=== PATIENT | female | born 1985 | race Caucasian/White ===

== ENCOUNTER 2019-10-26 00:14 | Emergency (ER) | payer MEDICAID, SELFPAY ==
[2019-10-26 00:15] VITALS: BP 139/93; PULSE 87; RESP 20; TEMP 36.7; O2SAT 95; BMI 77.2
--- NOTE | 2019-10-26 00:20 | XR_ITS ---
WS: [id number] Bilateral hips. HISTORY: Injury. Quality of examination is limited by body habitus. There is mild narrowing of hip joints. No fracture s or dislocations are apparent. XR/XR hip BI 3-4V wo/w pel [id number] IMPRESSION: Limited quality examination by body habitus. No abnormality seen.
--- NOTE | 2019-10-26 00:25 | W.ED.FALL ---
HPI - Fall General: Chief Complaint: Fall Stated Complaint: leg pain Time Seen by Provider: 10/26/19 00:18 Source: EMS Mode of arrival: EMS Limitations: no limitations History of Present Illness: HPI Narrative: 34-year-old female who states she fell on her wheelchair roughly 2 to 3 hours ago and has had bilateral hip pain since then. Patient has no obvious deformities. States her pain is a 6 out of 10. MD complaint: fall Associated symptoms-after fall: Denies abdominal pain, chest pain or headache(s) Review of Systems Const: Denies: fever(s), chills, body aches or change in appetite Eyes: Denies: blurry vision or eye discomfort ENMT: Denies: throat pain or dental pain Card: Denies: chest pain Resp: Denies: dyspnea GI: Denies: abdominal pain, nausea, vomiting or diarrhea : Denies: dysuria Musc: Reports: joint pain Skin/Breast: Denies: rash Neuro: Denies: headache(s) Psych: Denies: depression Myles/Lymph: Denies: easy bruising All/Imm: Denies: urticaria Physical Exam Const: COMMON NORMALS: no acute distress and patient oriented x3 OTHER: Morbidly obese HENMT: COMMON NORMALS: normocephalic and atraumatic HEAD & SCALP: normocephalic and atraumatic Eye: COMMON NORMALS: Equal, round and reactive pupils present and EOMs intact bilaterally PUPIL: Yes Equal, round and reactive pupils present Neck/C-Spine: COMMON NORMALS: full ROM and supple Chest: COMMONS NORMALS: normal inspection of the chest and normal palpation of entire chest wall Resp: COMMON NORMALS: normal respiratory effort, No retractions, No use of accessory muscles and clear to auscultation bilaterally AUSCULTATION: clear to auscultation bilaterally Cardio: COMMON NORMALS: regular rate, regular rhythm and No murmurs present (Cardio) RATE: regular rate RHYTHM: regular rhythm GI: COMMON NORMALS: Normal to inspection, nondistended, normoactive bowel sounds present, Soft to palpation, non-tender and no masses PALPATION: Yes Soft to palpation Extremity: COMMON NORMALS: normal to inspection and full ROM Neuro: COMMON NORMALS: patient oriented x3, moves all extremities and no focal motor deficits Psych: COMMON NORMALS: mental status grossly normal, Normal thought process present and cooperative THOUGHT PROCESS: Normal thought process present Skin: COMMON NORMALS: no rashes or lesions noted and no wounds GENERAL SKIN EXAM: no rashes or lesions noted Course Vital Signs: Vital signs: Vital Signs Temperature 98.0 F 10/26/19 00:15 Pulse Rate 87 10/26/19 00:15 Respiratory Rate 18 10/26/19 00:30 Blood Pressure 139/93 10/26/19 00:15 Pulse Oximetry 95 10/26/19 00:15 MDM - Fall MDM Narrative: Medical decision making narrative: Patient presents with hip pain likely contusion. Patient has no signs of fractures. Patient is stable for discharge and is to follow-up with primary care doctor in 3 to 4 days. Imaging Data^: xr hip b: Attestation: I personally reviewed and interpreted this imaging study as follows: My impression: no acute abnormality Discharge Plan Discharge Patient Disposition: Home Clinical Impression: Hip pain Fall Qualifiers: Encounter type: initial encounter Qualified Code(s): W19.XXXA - Unspecified fall, initial encounter Condition: Stable Discharge Orders: Discharge Order (Routine); Ordered 10/26/19 Ordered By: Waleska Starr Referrals: Fern Aguilar FNP [Primary Care Provider] - 1-3 days Discharge Diet: Advance as tolerated Discharge Activity: Resume usual activity Patient Instructions: Sciatica (ED) Coding Level of Care Code ED Preparer Making Department for Luis [facility] Fwd Exam Comprehensive
[2019-10-26 00:30] VITALS: RESP 18
[2019-10-26] MEDS: morphine 4 mg/mL SDV 1 mL IM (00:30)
[2019-10-26] MEDS: dexamethasone 10 mg/mL INJ IM (00:31)
--- NOTE | 2019-10-26 00:35 | PC.NURSE ---
Attempted to give IM injections and pt refused the shots. Told
--- NOTE | 2019-10-26 01:15 | XR_ITS ---
WS: [id number] RIGHT KNEE: 3 VIEW(S) TECHNIQUE: AP, oblique(s) and lateral. HISTORY: injury COMPARISON: None available. Study is limited by positioning and rotation. No definite fractures are identified. Mild joint space narrowing throughout the knee. Hypertrophic osteophytes along the tibial plateau. Small to moderate suprapatellar effusion. Extensive soft tissue edema. XR/XR knee RT 3V* [id number] IMPRESSION: 1. No fracture identified. 2. Small to moderate suprapatellar effusion. Consider follow-up CT evaluation if pain continues to exclude occult fracture. Quality of the radiographic serie s is limited by difficult positioning.
--- NOTE | 2019-10-26 01:15 | XR_ITS ---
WS: [id number] LEFT KNEE: 3 VIEW(S) TECHNIQUE: AP, oblique(s) and lateral. HISTORY: injury COMPARISON: None available. Study limited by positioning and habitus. Mild tricompartment osteoarthritis. No fractures are identified. Small osteophytes along the joint line. Small suprapatellar effusion. Diffuse soft tissue edema. XR/XR knee LT 3V* [id number] IMPRESSION: 1. No fracture identified. 2. Mild tricompartment arthritis.
[2019-10-26 01:33] VITALS: BP 112/58; PULSE 68; RESP 18; O2SAT 98
[2019-10-26 01:57] VITALS: BP 114/68; PULSE 78; RESP 16; O2SAT 98
== END 2019-10-26 02:06 | disposition home or self-care (01) ==
PROVIDERS: Emergency Provider Emergency Medicine; PCP Nurse Practitioner Family
DX: M25.559 Pain in unspecified hip (principal); W05.0XXA Fall from non-moving wheelchair, initial encounter
CPT/HCPCS: 12345; 73521; 73522; 73562; 96372; 96375; 99282; 99283; J1100; J2270

== ENCOUNTER 2020-02-06 09:42 | Outpatient (RCR) | payer SELFPAY | END 2020-02-06 23:00 | disposition home or self-care (01) | LOC: SOT 09:42 | PROVIDERS: PCP Nurse Practitioner Family; Referring Provider Nurse Practitioner Family; Visit Provider Nurse Practitioner Family | DX: M25.532 Pain in left wrist (principal); M25.531 Pain in right wrist | CPT/HCPCS: 97110; 97165; L3908 ==

== ENCOUNTER 2020-02-12 06:00 | Outpatient (RCR) | payer MEDICAID, SELFPAY | END 2020-03-03 23:59 | disposition home or self-care (01) | LOC: SPT 06:00 | PROVIDERS: PCP Nurse Practitioner Family; Referring Provider Nurse Practitioner Family; Visit Provider Nurse Practitioner Family | DX: M25.569 Pain in unspecified knee (principal); M25.539 Pain in unspecified wrist | CPT/HCPCS: 97162 ==

== ENCOUNTER 2020-02-16 15:28 | Emergency (ER) | payer MEDICAID, SELFPAY ==
[2020-02-16 15:38] VITALS: BP 155/109; PULSE 98; RESP 20; TEMP 36.9; O2SAT 93; BMI 70.4
--- NOTE | 2020-02-16 16:21 | ED_ITS ---
Documented by User: Waleska Starr MD 02/16/20 17:58 HPI - Abdominal Pain General: Chief Complaint: Abdominal Pain Stated Complaint: ABDOMEN PAIN, N/V/D Time Seen by Provider: 02/16/20 15:33 Source: patient Mode of arrival: ambulatory Limitations: no limitations History of Present Illness: HPI narrative: 34-year-old female states she is having diarrhea today. States that multiple episodes of diarrhea with abdominal cramping. States she also started having rash to is quite pruritic and appears to be allergic. She denies any worsening improving factors. She states her pain is currently a 3 out of 10. She denies any fever. Associated Symptoms: Reports diarrhea and nausea; Denies chills, dysuria and fever(s) Review of Systems Const: Denies: fever(s), chills, body aches or change in appetite Eyes: Denies: blurry vision or eye discomfort ENMT: Denies: throat pain or dental pain Card: Denies: chest pain Resp: Denies: dyspnea GI: Reports: abdominal pain, nausea and diarrhea : Denies: dysuria Musc: Denies: neck pain or back pain Skin/Breast: Reports: rash Neuro: Denies: headache(s) Psych: Denies: depression Myles/Lymph: Denies: easy bruising All/Imm: Denies: urticaria Physical Exam Const: COMMON NORMALS: no acute distress, patient oriented x3 and healthy appearing NUTRITIONAL APPEARANCE: obese HENMT: COMMON NORMALS: normocephalic and atraumatic HEAD & SCALP: normocephalic and atraumatic Eye: COMMON NORMALS: Equal, round and reactive pupils present and EOMs intact bilaterally PUPIL: Yes Equal, round and reactive pupils present Neck/C-Spine: COMMON NORMALS: full ROM and supple Chest: COMMONS NORMALS: normal inspection of the chest and normal palpation of entire chest wall Resp: COMMON NORMALS: normal respiratory effort, No retractions, No use of accessory muscles and clear to auscultation bilaterally AUSCULTATION: clear to auscultation bilaterally Cardio: COMMON NORMALS: regular rate, regular rhythm and No murmurs present (Cardio) RATE: regular rate RHYTHM: regular rhythm GI: COMMON NORMALS: Normal to inspection, nondistended, normoactive bowel sounds present, Soft to palpation, non-tender and no masses PALPATION: Yes Soft to palpation Extremity: COMMON NORMALS: normal to inspection and full ROM Neuro: COMMON NORMALS: patient oriented x3, moves all extremities and no focal motor deficits Psych: COMMON NORMALS: mental status grossly normal, Normal thought process present and cooperative THOUGHT PROCESS: Normal thought process present Skin: COMMON NORMALS: no wounds NARRATIVE SKIN EXAM: Urticarial-like rash to trunk Course Vital Signs: Vital signs: Vital Signs Temperature 98.4 F 02/16/20 15:38 Pulse Rate 78 02/16/20 19:24 Respiratory Rate 18 02/16/20 19:24 Blood Pressure 109/82 02/16/20 19:24 Pulse Oximetry 94 02/16/20 19:24 MDM - Abdominal Pain Lab Data: Labs: Lab Results 02/16/20 02/16/20 Range/Units 16:25 16:25 WBC 16.8 H (4.0-10.0) 10^3/ uL RBC 4.84 (4.1-5.3) 10^6/u L Hgb 14.4 (11.5-15.3) g/dL Hct 45.3 (37.0-47.0) % MCV 93.6 (81-99) fL MCH 29.8 (28.0-34.0) pg MCHC 31.8 (30.0-36.0) g/dL RDW 15.5 H (12.1-15.1) % Plt Count 341 (130-400) 10^3/c mm MPV 11.1 H (7.4-10.4) fL Neut % (Auto) 76.6 % Lymph % (Auto) 17.3 % Baldwin % (Auto) 4.7 % Eos % (Auto) 0.6 % Baso % (Auto) 0.5 % Neut # (Auto) 12.82 H (1.8-7.7) 10^3/u L Lymph # (Auto) 2.9 (0.8-4.8) 10^3/u L Baldwin # (Auto) 0.8 (0.2-0.9) 10^3/u L Eos # (Auto) 0.1 (0.0-0.8) 10^3/u L Baso # (Auto) 0.1 (0.0-0.1) 10^3/u L Nucleated RBC % (a uto) 0 % Nucleated RBCs # 0.0 /100WBC Sodium 138 (136-145) mmol/L Potassium 4.1 (3.5-5.1) mmol/L Chloride 100 (98-107) mmol/L Carbon Dioxide 28 (22-29) mmol/L Anion Gap 14.1 (5-19) BUN 19 (6-20) mg/dL Creatinine 0.9 (0.5-0.9) mg/dL GFR Calculation 71.7 L (90-130) mL/min Glucose 99 (65-115) mg/dL Calculated Osmolal ity 288 (285-295) mOsm/k g Calcium 9.0 (8.5-10.5) mg/dL Total Bilirubin 0.2 (0.15-1.2) mg/dL AST 16 (0-32) U/L ALT 12 (0-33) U/L Alkaline Phosphata se 226 H (35-105) IU/L Total Protein 7.1 (6.6-8.7) g/dL Albumin 3.6 (3.5-5.2) g/dL Globulin 3.5 (1.3-4.6) g/dL Lipase 21 (13-60) U/L Discharge Plan Discharge Patient Disposition: Home Clinical Impression: Acute diarrhea Condition: Stable Prescriptions: New Lomotil 2.5-0.025 mg tablet 1 tab PO Q8H PRN (Reason: diarrhea) Qty: 7 RF: 0 No Action cyclobenzaprine 10 mg Tablet 10 mg PO TID PRN (Reason: MUSCLE SPASMS) RF: 0 bumetanide 2 mg Tablet 2 mg PO DAILY RF: 0 cetirizine 10 mg Tablet 10 mg PO DAILY RF: 0 Oyster Shell Calcium 500 mg Tablet 500 mg PO DAILY RF: 0 oxcarbazepine 300 mg Tablet 300 mg PO BID RF: 0 levothyroxine 100 mcg Tablet 100 mcg PO DAILY RF: 0 famotidine 20 mg Tablet 20 mg PO DAILY RF: 0 gabapentin 300 mg Capsule 300 mg PO TID RF: 0 Tri-Linyah 0.18/0.215/0.25 mg-35 mcg (28) Tablet 1 tab PO DAILY RF: 0 hydroxyzine HCl 25 mg Tablet 25 mg PO QID PRN (Reason: ITCHING/ANXIETY) RF: 0 fluticasone propionate 50 mcg/actuation [place],Suspension 1 spray INTRANASAL DAILY RF: 0 sertraline 50 mg Tablet 150 mg PO DAILY RF: 0 Icy Hot Cream 1 applic TOPICAL BID PRN (Reason: JOINT PAIN) RF: 0 bupropion HCl 300 mg Tablet Extended Release 24 Hr 300 mg PO QAM RF: 0 epinephrine 0.3 mg/0.3 mL Syringe See Rx Instructions .ROUTE .COMPLEX RF: 0 potassium chloride 20 mEq Tablet Extended Release 20 meq PO DAILY RF: 0 Discharge Orders: Discharge Order (Routine); Ordered 02/16/20 Ordered By: Cordell Colmenares Referrals: Fern Aguilar FNP [Primary Care Provider] - 4-7 days Discharge Diet: Advance as tolerated Discharge Activity: Resume usual activity Patient Instructions: Diarrhea - Adult Activity Restrictions/Additional Instructions: Return for fever, worsening diarrhea despite treatment, significant blood in the stool, vomiting liquids or medications, other concerning symptoms. Coding Level of Care Code ED Billing Services Manager for [facility] Fwd Exam Comprehensive Documented by User: Cordell Colmenares DO 02/16/20 20:20 HPI - Abdominal Pain General: Chief Complaint: Abdominal Pain Stated Complaint: ABDOMEN PAIN, N/V/D Time Seen by Provider: 02/16/20 15:33 Course Vital Signs: Vital signs: Vital Signs Temperature 98.4 F 02/16/20 15:38 Pulse Rate 78 02/16/20 19:24 Respiratory Rate 18 02/16/20 19:24 Blood Pressure 109/82 02/16/20 19:24 Pulse Oximetry 94 02/16/20 19:24 MDM - Abdominal Pain MDM Narrative: Medical decision making narrative: 34-year-old female with some belly pain and diarrhea checked out to me by Dr. Starr at shift change. Her white blood cell count was 16.8. Her other laboratory appears benign. She has a negative CT scan. We will treat her diarrhea symptomatically. Lab Data: Labs: Lab Results 02/16/20 02/16/20 Range/Units 16:25 16:25 WBC 16.8 H (4.0-10.0) 10^3/ uL RBC 4.84 (4.1-5.3) 10^6/u L Hgb 14.4 (11.5-15.3) g/dL Hct 45.3 (37.0-47.0) % MCV 93.6 (81-99) fL MCH 29.8 (28.0-34.0) pg MCHC 31.8 (30.0-36.0) g/dL RDW 15.5 H (12.1-15.1) % Plt Count 341 (130-400) 10^3/c mm MPV 11.1 H (7.4-10.4) fL Neut % (Auto) 76.6 % Lymph % (Auto) 17.3 % Baldwin % (Auto) 4.7 % Eos % (Auto) 0.6 % Baso % (Auto) 0.5 % Neut # (Auto) 12.82 H (1.8-7.7) 10^3/u L Lymph # (Auto) 2.9 (0.8-4.8) 10^3/u L Baldwin # (Auto) 0.8 (0.2-0.9) 10^3/u L Eos # (Auto) 0.1 (0.0-0.8) 10^3/u L Baso # (Auto) 0.1 (0.0-0.1) 10^3/u L Nucleated RBC % (a uto) 0 % Nucleated RBCs # 0.0 /100WBC Sodium 138 (136-145) mmol/L Potassium 4.1 (3.5-5.1) mmol/L Chloride 100 (98-107) mmol/L Carbon Dioxide 28 (22-29) mmol/L Anion Gap 14.1 (5-19) BUN 19 (6-20) mg/dL Creatinine 0.9 (0.5-0.9) mg/dL GFR Calculation 71.7 L (90-130) mL/min Glucose 99 (65-115) mg/dL Calculated Osmolal ity 288 (285-295) mOsm/k g Calcium 9.0 (8.5-10.5) mg/dL Total Bilirubin 0.2 (0.15-1.2) mg/dL AST 16 (0-32) U/L ALT 12 (0-33) U/L Alkaline Phosphata se 226 H (35-105) IU/L Total Protein 7.1 (6.6-8.7) g/dL Albumin 3.6 (3.5-5.2) g/dL Globulin 3.5 (1.3-4.6) g/dL Lipase 21 (13-60) U/L Discharge Plan Discharge Patient Disposition: Home Clinical Impression: Acute diarrhea Condition: Stable Prescriptions: New Lomotil 2.5-0.025 mg tablet 1 tab PO Q8H PRN (Reason: diarrhea) Qty: 7 RF: 0 No Action cyclobenzaprine 10 mg Tablet 10 mg PO TID PRN (Reason: MUSCLE SPASMS) RF: 0 bumetanide 2 mg Tablet 2 mg PO DAILY RF: 0 cetirizine 10 mg Tablet 10 mg PO DAILY RF: 0 Oyster Shell Calcium 500 mg Tablet 500 mg PO DAILY RF: 0 oxcarbazepine 300 mg Tablet 300 mg PO BID RF: 0 levothyroxine 100 mcg Tablet 100 mcg PO DAILY RF: 0 famotidine 20 mg Tablet 20 mg PO DAILY RF: 0 gabapentin 300 mg Capsule 300 mg PO TID RF: 0 Tri-Linyah 0.18/0.215/0.25 mg-35 mcg (28) Tablet 1 tab PO DAILY RF: 0 hydroxyzine HCl 25 mg Tablet 25 mg PO QID PRN (Reason: ITCHING/ANXIETY) RF: 0 fluticasone propionate 50 mcg/actuation [place],Suspension 1 spray INTRANASAL DAILY RF: 0 sertraline 50 mg Tablet 150 mg PO DAILY RF: 0 Icy Hot Cream 1 applic TOPICAL BID PRN (Reason: JOINT PAIN) RF: 0 bupropion HCl 300 mg Tablet Extended Release 24 Hr 300 mg PO QAM RF: 0 epinephrine 0.3 mg/0.3 mL Syringe See Rx Instructions .ROUTE .COMPLEX RF: 0 potassium chloride 20 mEq Tablet Extended Release 20 meq PO DAILY RF: 0 Discharge Orders: Discharge Order (Routine); Ordered 02/16/20 Ordered By: Cordell Colmenares Referrals: Fern Aguilar FNP [Primary Care Provider] - 4-7 days Discharge Diet: Advance as tolerated Discharge Activity: Resume usual activity Patient Instructions: Diarrhea - Adult Activity Restrictions/Additional Instructions: Return for fever, worsening diarrhea despite treatment, significant blood in the stool, vomiting liquids or medications, other concerning symptoms. Coding Level of Care Code ED Billing Services Manager for [facility] Fwd Exam Comprehensive
[2020-02-16] MEDS: ondansetron 2 mg/ML SDV 2 mL 4 MG IVP (16:34)
[2020-02-16 16:35] LABS: Basophils # 0.1 10^3/uL (0.0-0.1); Basophils % 0.5 %; Eosinophils # 0.1 10^3/uL (0.0-0.8); Eosinophils % 0.6 %; Hematocrit 45.3 % (37.0-47.0); Hemoglobin 14.4 g/dL (11.5-15.3); Lymphocytes # 2.9 10^3/uL (0.8-4.8); Lymphocytes % 17.3 %; Mean Corpuscular HGB Conc 31.8 g/dL (30.0-36.0); Mean Corpuscular Hemoglobin 29.8 pg (28.0-34.0); Mean Corpuscular Volume 93.6 fL (81-99); Mean Platelet Volume 11.1 fL (7.4-10.4); Monocytes # 0.8 10^3/uL (0.2-0.9); Monocytes % 4.7 %; Neutrophils # 12.82 10^3/uL (1.8-7.7); Neutrophils % 76.6 %; Nucleated Red Blood Cells % 0 %; Platelet Count 341 10^3/cmm (130-400); Red Blood Count 4.84 10^6/uL (4.1-5.3); Red Cell Distribution Width 15.5 % (12.1-15.1); White Blood Count 16.8 10^3/uL (4.0-10.0)
[2020-02-16] MEDS: sodium chloride 0.9% 1,000 ML 999 ML IV (16:35)
[2020-02-16 16:36] VITALS: RESP 18
[2020-02-16] MEDS: morphine 4 mg/mL SDV 1 mL IVP (16:36)
[2020-02-16] MEDS: diphenoxylate/atropine Tablet 2 TAB PO (16:37)
[2020-02-16] MEDS: diphenhydrAMINE 50 mg/mL SDV 1mL IVP (16:38)
[2020-02-16 16:52] LABS: Alanine Aminotransferase 12 U/L (0-33); Albumin Level 3.6 g/dL (3.5-5.2); Alkaline Phosphatase 226 IU/L (35-105); Anion Gap 14.1 (5-19); Aspartate Amino Transferase 16 U/L (0-32); Blood Urea Nitrogen 19 mg/dL (6-20); Carbon Dioxide 28 mmol/L (22-29); Chloride 100 mmol/L (98-107); Globulin 3.5 g/dL (1.3-4.6); Glomerular Filtration Rate 71.7 mL/min (90-130); Glucose 99 mg/dL (65-115); Lipase 21 U/L (13-60); Osmolality Calculated 288 mOsm/kg (285-295); Potassium 4.1 mmol/L (3.5-5.1); Sodium 138 mmol/L (136-145); Total Bilirubin 0.2 mg/dL (0.15-1.2); Total Protein 7.1 g/dL (6.6-8.7)
--- NOTE | 2020-02-16 17:34 | CTR_ITS ---
PROCEDURE INFORMATION: Exam: CT Abdomen And Pelvis With Contrast Exam date and time: 02/16/2020 5:35 PM Age: 34 years old Clinical indication: Abdominal pain; Generalized; Prior surgery; Surgery type: Cholecystectomy; Additional info: Abd pain TECHNIQUE: Imaging protocol: Computed tomography of the abdomen and pelvis with intravenous contrast. Radiation optimization: All CT scans at this facility use at least one of these dose optimization techniques: automated exposure control; mA and/or kV adjustment per patient size (includes targeted exams where dose is matched to clinical indication); or iterative reconstruction. Contrast material: OMNI 300; Contrast volume: 95 ml; Contrast route: INTRAVENOUS (IV); COMPARISON: CR XR hip BI 3-4V wo/w pel [id number] 10/26/2019 12:26 AM RADIATION DOSE METRICS: Total DLP (mGy-cm): 2568.1 FINDINGS: Lungs: There is a 2.3 cm lobular density along the right oblique fissure extending into the right lower lobe. Liver: Normal. No mass. Gallbladder and bile ducts: The gallbladder has been removed. Pancreas: Normal. No ductal dilation. Spleen: Normal. No splenomegaly. Adrenal glands: Normal. No mass. Kidneys and ureters: Normal. No hydronephrosis. Stomach and bowel: Unremarkable. No obstruction. No mucosal thickening. Appendix: No evidence of appendicitis. Intraperitoneal space: Unremarkable. No free air. No significant fluid collection. Vasculature: Unremarkable. No abdominal aortic aneurysm. Lymph nodes: Unremarkable. No enlarged lymph nodes. Urinary bladder: Unremarkable as visualized. Reproductive: Unremarkable as visualized. Bones/joints: Unremarkable. No acute fracture. Soft tissues: Unremarkable. CT/CT abdomen pelvis w con* [id number] IMPRESSION: Nonspecific 2.3 cm lobular density along the right oblique fissure. Differential includes subpleural lymph node.If the patient does not have known cancer, follow up should be based on clinical information because of the low risk of cancer in this age group. (Reference: Deyvi) REFERENCES: Deyvi Belcher et al. Guidelines for Management of Incidental Pulmonary Nodules Detected on CT Images: From the Fleischner Society 2017. Radiology. 2017;284(1):228-243. Radiation Dose CTDIVOL = (mGy): DLP = 2568.1 (mGy-cm)
[2020-02-16] MEDS: iohexol 300 mg/mL 100 mL Btl IV (17:52)
[2020-02-16 18:16] VITALS: BP 108/80; PULSE 80; RESP 18; O2SAT 94
[2020-02-16 18:48] VITALS: BP 121/71; PULSE 83; RESP 18; O2SAT 94
[2020-02-16 19:24] VITALS: BP 109/82; PULSE 78; RESP 18; O2SAT 94
== END 2020-02-16 19:26 | disposition home or self-care (01) ==
PROVIDERS: Emergency Medicine; Emergency Provider Emergency Medicine; PCP Nurse Practitioner Family
DX: R19.7 Diarrhea, unspecified (principal)
CPT/HCPCS: 12345; 74177; 80053; 83690; 85025; 87493; 87506; 96361; 96374; 96375; 96376; 99282; 99283; J1200; J2270; J2405; J7030; Q9967

== ENCOUNTER 2020-05-12 10:34 | Emergency (ER) | payer MEDICAID, SELFPAY ==
[2020-05-12 11:08] VITALS: BP 155/93; PULSE 88; RESP 14; TEMP 36.6; O2SAT 96; BMI 70.7
--- NOTE | 2020-05-12 11:57 | ED_ITS ---
HPI - Nausea/Vomiting/Diarrhea General: Chief complaint: Nausea/Vomiting/Diarrhea Stated complaint: DIARRHEA, BODY ACHES/PAINS Time Seen by Provider: 05/12/20 11:42 Source: patient Mode of arrival: ambulatory Limitations: no limitations History of Present Illness: HPI Narrative: 35-year-old female states she has had diarrhea over the last 2 days. States she has had multiple episodes. She denies any blood in her stool. She has abdominal cramping she rates a 3-4 out of 10. She denies any fever. She denies any worsening improving factors. She denies any recent travel or changes in her diet. Associated symtoms: Denies chest pain, dysuria or headache(s) Review of Systems Const: Denies: fever(s), chills, body aches or change in appetite Eyes: Denies: blurry vision or eye discomfort ENMT: Denies: throat pain or dental pain Card: Denies: chest pain Resp: Denies: dyspnea GI: Reports: abdominal pain and diarrhea : Denies: dysuria Musc: Denies: neck pain or back pain Skin/Breast: Denies: rash Neuro: Denies: headache(s) Psych: Denies: depression Myles/Lymph: Denies: easy bruising All/Imm: Denies: urticaria Physical Exam Const: COMMON NORMALS: no acute distress and patient oriented x3 NUTRITIONAL APPEARANCE: obese HENMT: COMMON NORMALS: normocephalic and atraumatic HEAD & SCALP: normocephalic and atraumatic Eye: COMMON NORMALS: Equal, round and reactive pupils present and EOMs intact bilaterally PUPIL: Yes Equal, round and reactive pupils present Neck/C-Spine: COMMON NORMALS: full ROM and supple Chest: COMMONS NORMALS: normal inspection of the chest and normal palpation of entire chest wall Resp: COMMON NORMALS: normal respiratory effort, No retractions, No use of accessory muscles and clear to auscultation bilaterally AUSCULTATION: clear to auscultation bilaterally Cardio: COMMON NORMALS: regular rate, regular rhythm and No murmurs present (Cardio) RATE: regular rate RHYTHM: regular rhythm GI: COMMON NORMALS: Normal to inspection, nondistended, normoactive bowel sounds present, Soft to palpation, non-tender and no masses PALPATION: Yes Soft to palpation Extremity: COMMON NORMALS: normal to inspection and full ROM Neuro: COMMON NORMALS: patient oriented x3, moves all extremities and no focal motor deficits Psych: COMMON NORMALS: mental status grossly normal, Normal thought process present and cooperative THOUGHT PROCESS: Normal thought process present Skin: COMMON NORMALS: no rashes or lesions noted and no wounds GENERAL SKIN EXAM: no rashes or lesions noted Course Vital Signs: Vital signs: Vital Signs Temperature 97.9 F 05/12/20 11:08 Pulse Rate 71 05/12/20 12:35 Respiratory Rate 14 05/12/20 11:08 Blood Pressure 141/53 05/12/20 12:35 Pulse Oximetry 94 05/12/20 12:55 MDM - Nausea/Vomiting/Diarrhea MDM Narrative: Medical decision making narrative: Patient presents here with diarrhea and vomiting and feels much improved here blood work is normal abdominal exam is benign she has no signs of acute surgical abdomen. Patient's not had any bowel movements here. We will place her on Lomotil and Zofran for home. She is to follow-up with PCP and return if worsening. Lab Data: Labs: Lab Results 05/12/20 05/12/20 05/12/20 Range/Units 11:57 11:57 12:41 WBC 7.8 (4.0-10.0) 10^3/ uL RBC 4.43 (4.1-5.3) 10^6/u L Hgb 13.4 (11.5-15.3) g/dL Hct 43.2 (37.0-47.0) % MCV 97.5 (81-99) fL MCH 30.2 (28.0-34.0) pg MCHC 31.0 (30.0-36.0) g/dL RDW 14.9 (12.1-15.1) % Plt Count 318 (130-400) 10^3/c mm MPV 10.7 H (7.4-10.4) fL Neut % (Auto) 72.3 % Lymph % (Auto) 19.7 % [place] % (Auto) 6.1 % Eos % (Auto) 1.2 % Baso % (Auto) 0.4 % Neut # (Auto) 5.62 (1.8-7.7) 10^3/u L Lymph # (Auto) 1.5 (0.8-4.8) 10^3/u L [place] # (Auto) 0.5 (0.2-0.9) 10^3/u L Eos # (Auto) 0.1 (0.0-0.8) 10^3/u L Baso # (Auto) 0.0 (0.0-0.1) 10^3/u L Nucleated RBC % (a uto) 0 % Nucleated RBCs # 0.0 /100WBC Sodium 138 (136-145) mmol/L Potassium 3.9 (3.5-5.1) mmol/L Chloride 102 (98-107) mmol/L Carbon Dioxide 28 (22-29) mmol/L Anion Gap 11.9 (5-19) BUN 12 (6-20) mg/dL Creatinine 0.8 (0.5-0.9) mg/dL GFR Calculation 81.6 L (90-130) mL/min Glucose 96 (65-115) mg/dL Calculated Osmolal ity 286 (285-295) mOsm/k g Calcium 9.0 (8.5-10.5) mg/dL Total Bilirubin 0.2 (0.15-1.2) mg/dL AST 24 (0-32) U/L ALT 17 (0-33) U/L Alkaline Phosphata se 244 H (35-105) IU/L Total Protein 7.2 (6.6-8.7) g/dL Albumin 3.4 L (3.5-5.2) g/dL Globulin 3.8 (1.3-4.6) g/dL Lipase 11 L (13-60) U/L Urine Color (Yellow) Urine Appearance (CLEAR) Urine pH (5-7) Ur Specific Gravit y (1.005-1.030) Urine Protein (Negative) Urine Glucose (UA) (Normal) Urine Ketones (Negative) Urine Blood (Negative) Urine Nitrate (Negative) Urine Bilirubin (Negative) Urine Urobilinogen (Negative) mg/dL Ur Leukocyte Paula ase (Negative) Urine RBC (0-2) /hpf Urine WBC (0-5) /hpf Ur Squamous Epith Cells (0-5) /hpf Amorphous Sediment Urine Bacteria (NONE) /hpf Urine HCG, Qual Negative (Negative) 05/12/20 Range/Units 12:41 WBC (4.0-10.0) 10^3/ uL RBC (4.1-5.3) 10^6/u L Hgb (11.5-15.3) g/dL Hct (37.0-47.0) % MCV (81-99) fL MCH (28.0-34.0) pg MCHC (30.0-36.0) g/dL RDW (12.1-15.1) % Plt Count (130-400) 10^3/c mm MPV (7.4-10.4) fL Neut % (Auto) % Lymph % (Auto) % [place] % (Auto) % Eos % (Auto) % Baso % (Auto) % Neut # (Auto) (1.8-7.7) 10^3/u L Lymph # (Auto) (0.8-4.8) 10^3/u L [place] # (Auto) (0.2-0.9) 10^3/u L Eos # (Auto) (0.0-0.8) 10^3/u L Baso # (Auto) (0.0-0.1) 10^3/u L Nucleated RBC % (a uto) % Nucleated RBCs # /100WBC Sodium (136-145) mmol/L Potassium (3.5-5.1) mmol/L Chloride (98-107) mmol/L Carbon Dioxide (22-29) mmol/L Anion Gap (5-19) BUN (6-20) mg/dL Creatinine (0.5-0.9) mg/dL GFR Calculation (90-130) mL/min Glucose (65-115) mg/dL Calculated Osmolal ity (285-295) mOsm/k g Calcium (8.5-10.5) mg/dL Total Bilirubin (0.15-1.2) mg/dL AST (0-32) U/L ALT (0-33) U/L Alkaline Phosphata se (35-105) IU/L Total Protein (6.6-8.7) g/dL Albumin (3.5-5.2) g/dL Globulin (1.3-4.6) g/dL Lipase (13-60) U/L Urine Color Yellow (Yellow) Urine Appearance Clear (CLEAR) Urine pH 7 (5-7) Ur Specific Gravit y 1.015 (1.005-1.030) Urine Protein Neg (Negative) Urine Glucose (UA) Norm (Normal) Urine Ketones 1+ H (Negative) Urine Blood 3+ H (Negative) Urine Nitrate Negative (Negative) Urine Bilirubin 1+ H (Negative) Urine Urobilinogen 1 H (Negative) mg/dL Ur Leukocyte Paula ase Negative (Negative) Urine RBC 10-15 H (0-2) /hpf Urine WBC 0-4 H (0-5) /hpf Ur Squamous Epith Cells 0-4 H (0-5) /hpf Amorphous Sediment Not Reportable Urine Bacteria 1+ H (NONE) /hpf Urine HCG, Qual (Negative) Discharge Plan Discharge Patient Disposition: Home Clinical Impression: Vomiting Qualifiers: Vomiting type: unspecified Vomiting Intractability: non-intractable Nausea presence: with nausea Qualified Code(s): R11.2 - Nausea with vomiting, unspecified Diarrhea Qualifiers: Diarrhea type: unspecified type Qualified Code(s): R19.7 - Diarrhea, unspecified Condition: Stable Prescriptions: New ondansetron 4 mg tablet,disintegrating 4 mg PO Q6H PRN (Reason: nausea and vomiting) Qty: 14 RF: 0 Lomotil 2.5-0.025 mg tablet 1 tab PO DAILY PRN (Reason: diarrhea) Qty: 5 RF: 0 No Action cyclobenzaprine 10 mg Tablet 10 mg PO TID PRN (Reason: MUSCLE SPASMS) RF: 0 cetirizine 10 mg Tablet 10 mg PO DAILY@08 RF: 0 oxcarbazepine 300 mg Tablet 300 mg PO BID@08,20 RF: 0 levothyroxine 100 mcg Tablet 100 mcg PO DAILY@08 RF: 0 famotidine 20 mg Tablet 20 mg PO DAILY@08 RF: 0 norgestimate-ethinyl estradiol [Tri-Linyah] 0.18/0.215/0.25 mg-35 mcg (28) Tablet 1 tab PO DAILY@08 RF: 0 hydroxyzine HCl 25 mg Tablet 25 mg PO DAILY PRN (Reason: Anxiety) RF: 0 fluticasone propionate 50 mcg/actuation [place],Suspension 1 spray INTRANASAL DAILY@14 RF: 0 sertraline 50 mg Tablet 150 mg PO DAILY@08 RF: 0 bupropion HCl 300 mg Tablet Extended Release 24 Hr 300 mg PO DAILY@08 RF: 0 epinephrine 0.3 mg/0.3 mL Syringe See Rx Instructions .ROUTE .COMPLEX RF: 0 potassium chloride 20 mEq Tablet Extended Release 20 meq PO DAILY@08 RF: 0 diphenoxylate-atropine [Lomotil] 2.5-0.025 mg tablet 1 tab PO Q8H PRN (Reason: diarrhea) Qty: 7 RF: 0 gabapentin 600 mg Tablet 600 mg PO TID@08,14,20 RF: 0 Icy Hot Extra Strength See Rx Instructions .ROUTE .COMPLEX RF: 0 Lasix 80 mg Tablet 80 mg PO DAILY@08 RF: 0 Oyster Shell Calcium-Vit D3 500 mg(1,250mg) -200 unit Tablet 1 tab PO DAILY@08 RF: 0 Discharge Orders: Discharge ED (Routine); Ordered 05/12/20 Ordered By: Waleska Starr Referrals: Fern Aguilar FNP [Primary Care Provider] - 1-3 days Discharge Diet: Advance as tolerated Discharge Activity: Resume usual activity Patient Instructions: Acute Nausea and Vomiting (ED) Coding Level of Care Code ED Back End Web Developer for Luis Carlos Fwd Exam Comprehensive
[2020-05-12] MEDS: diphenoxylate/atropine Tablet 2 TAB PO (12:14)
[2020-05-12] MEDS: sodium chloride 0.9% 1,000 ML 999 ML IV (12:14)
[2020-05-12] MEDS: ondansetron 2 mg/ML SDV 2 mL 4 MG IVP (12:15)
[2020-05-12 12:27] LABS: Basophils % 0.4 %; Eosinophils # 0.1 10^3/uL (0.0-0.8); Eosinophils % 1.2 %; Hematocrit 43.2 % (37.0-47.0); Hemoglobin 13.4 g/dL (11.5-15.3); Lymphocytes # 1.5 10^3/uL (0.8-4.8); Lymphocytes % 19.7 %; Mean Corpuscular Hemoglobin 30.2 pg (28.0-34.0); Mean Corpuscular Volume 97.5 fL (81-99); Mean Platelet Volume 10.7 fL (7.4-10.4); Monocytes # 0.5 10^3/uL (0.2-0.9); Monocytes % 6.1 %; Neutrophils # 5.62 10^3/uL (1.8-7.7); Neutrophils % 72.3 %; Nucleated Red Blood Cells % 0 %; Platelet Count 318 10^3/cmm (130-400); Red Blood Count 4.43 10^6/uL (4.1-5.3); Red Cell Distribution Width 14.9 % (12.1-15.1); White Blood Count 7.8 10^3/uL (4.0-10.0)
[2020-05-12 12:35] VITALS: BP 141/53; PULSE 71; O2SAT 93
[2020-05-12] MEDS: HYDROmorphone 1 mg/mL INJ 1 mL IVP (12:52)
[2020-05-12 12:55] VITALS: O2SAT 94
[2020-05-12 13:04] LABS: Alanine Aminotransferase 17 U/L (0-33); Albumin Level 3.4 g/dL (3.5-5.2); Alkaline Phosphatase 244 IU/L (35-105); Anion Gap 11.9 (5-19); Aspartate Amino Transferase 24 U/L (0-32); Blood Urea Nitrogen 12 mg/dL (6-20); Carbon Dioxide 28 mmol/L (22-29); Chloride 102 mmol/L (98-107); Globulin 3.8 g/dL (1.3-4.6); Glomerular Filtration Rate 81.6 mL/min (90-130); Glucose 96 mg/dL (65-115); Lipase 11 U/L (13-60); Osmolality Calculated 286 mOsm/kg (285-295); Potassium 3.9 mmol/L (3.5-5.1); Sodium 138 mmol/L (136-145); Total Bilirubin 0.2 mg/dL (0.15-1.2); Total Protein 7.2 g/dL (6.6-8.7)
[2020-05-12 13:22] LABS: Add Urine Microscopic? YES; Bilirubin Urine 1+ (Negative); Blood Urine 3+ (Negative); Glucose Urine UA Norm (Normal); Ketones Urine 1+ (Negative); Leukocyte Esterase Urine Negative (Negative); Nitrate Urine Negative (Negative); Protein Urine Neg (Negative); Specific Gravity, Urine 1.015 (1.005-1.030); Urine Appearance Clear (CLEAR); Urine Color Yellow (Yellow); Urobilinogen Urine 1 mg/dL (Negative); pH Urine 7 (5-7)
[2020-05-12 13:24] LABS: Add Urine Culture? Yes; Bacteria Urine 1+ /hpf; Squamous Epithelial Cell Urine 0-4 /hpf (0-5); WBC Urine 0-4 /hpf (0-5)
[2020-05-12 14:44] VITALS: BP 150/68; PULSE 85; O2SAT 93
== END 2020-05-12 14:56 | disposition home or self-care (01) ==
PROVIDERS: Nurse Practitioner Family; Emergency Provider Emergency Medicine; PCP Nurse Practitioner Family
DX: R19.7 Diarrhea, unspecified (principal); R11.2 Nausea with vomiting, unspecified
CPT/HCPCS: 12345; 36415; 80053; 81001; 81025; 83690; 85025; 87086; 96361; 96374; 96375; 96376; 99283; J1170; J2405; J7030

== ENCOUNTER 2020-06-20 13:24 | Emergency (ER) | payer MEDICAID, SELFPAY ==
[2020-06-20 15:36] VITALS: BP 142/86; PULSE 87; RESP 89; TEMP 36.2; O2SAT 99; BMI 67.0
--- NOTE | 2020-06-20 15:47 | W.ED.GENADLT ---
HPI - General Adult General: Stated complaint: BILATERAL LEG PAIN Time Seen by Provider: 06/20/20 15:12 History of Present Illness: HPI narrative: Chronic bilateral lower extremity leg edema. Patient said new medications not helping her legs hurt in the mornings. Has no other complaints or problems MD complaint: Leg edema Onset (ago): year(s) Location: lower extremity Associated symptoms: Deny dyspnea Review of Systems Const: Denies: fever(s) or chills Card: Reports: other (Leg edema chronic) Resp: Denies: dyspnea GI: Denies: abdominal pain Physical Exam Const: COMMON NORMALS: no acute distress Resp: COMMON NORMALS: normal respiratory effort GI: OTHER: Obese Extremity: OTHER: Patient has 2+ bilateral lower lower extremity edema. Has dry skin no signs of infection erythema or cellulitis noted Psych: COMMON NORMALS: mental status grossly normal SPEECH: Yes rapid Discharge Plan Discharge Patient Disposition: Home Clinical Impression: Leg edema Condition: Stable Prescriptions: New hydrochlorothiazide 25 mg tablet 25 mg PO DAILY Qty: 10 RF: 0 No Action cyclobenzaprine 10 mg Tablet 10 mg PO TID PRN (Reason: MUSCLE SPASMS) RF: 0 cetirizine 10 mg Tablet 10 mg PO DAILY@08 RF: 0 oxcarbazepine 300 mg Tablet 300 mg PO BID@08,20 RF: 0 levothyroxine 100 mcg Tablet 100 mcg PO DAILY@08 RF: 0 famotidine 20 mg Tablet 20 mg PO DAILY@08 RF: 0 norgestimate-ethinyl estradiol [Tri-Linyah] 0.18/0.215/0.25 mg-35 mcg (28) Tablet 1 tab PO DAILY@08 RF: 0 hydroxyzine HCl 25 mg Tablet 25 mg PO DAILY PRN (Reason: Anxiety) RF: 0 fluticasone propionate 50 mcg/actuation [place],Suspension 1 spray INTRANASAL DAILY@14 RF: 0 sertraline 50 mg Tablet 150 mg PO DAILY@08 RF: 0 bupropion HCl 300 mg Tablet Extended Release 24 Hr 300 mg PO DAILY@08 RF: 0 epinephrine 0.3 mg/0.3 mL Syringe See Rx Instructions .ROUTE .COMPLEX RF: 0 potassium chloride 20 mEq Tablet Extended Release 20 meq PO DAILY@08 RF: 0 diphenoxylate-atropine [Lomotil] 2.5-0.025 mg tablet 1 tab PO Q8H PRN (Reason: diarrhea) Qty: 7 RF: 0 gabapentin 600 mg Tablet 600 mg PO TID@08,14,20 RF: 0 Icy Hot Extra Strength See Rx Instructions .ROUTE .COMPLEX RF: 0 Lasix 80 mg Tablet 80 mg PO DAILY@08 RF: 0 Oyster Shell Calcium-Vit D3 500 mg(1,250mg) -200 unit Tablet 1 tab PO DAILY@08 RF: 0 ondansetron 4 mg tablet,disintegrating 4 mg PO Q6H PRN (Reason: nausea and vomiting) Qty: 14 RF: 0 Lomotil 2.5-0.025 mg tablet 1 tab PO DAILY PRN (Reason: diarrhea) Qty: 5 RF: 0 Discharge Orders: Discharge ED (Routine); Ordered 06/20/20 Ordered By: Kike Amos Referrals: Fern Aguilar FNP [Primary Care Provider] - Discharge Diet: As Directed Discharge Activity: Resume usual activity Patient Instructions: Leg Edema (ED) Activity Restrictions/Additional Instructions: Follow-up with medical provider as directed. Take medications as prescribed. Return to the ER or your medical provider if condition worsens. Please read and understand discharge instructions. If any questions ask please. Follow-up with Steph Aguilar next week and see about getting lab work done to see how hydrochlorothiazide is affecting you Coding Level of Care Code ED Calender Let Off Helper for Luis Carlos Lee
== END 2020-06-20 16:00 | disposition home or self-care (01) ==
PROVIDERS: Emergency Provider Nurse Practitioner Family; PCP Nurse Practitioner Family
DX: R60.0 Localized edema (principal)
CPT/HCPCS: 99281

== ENCOUNTER 2020-07-24 13:24 | Observation (INO) | payer MEDICAID, SELFPAY ==
[2020-07-24] VITALS (12 sets, daily range): BP systolic 119–175; BP diastolic 71–84; PULSE 74–95; RESP 18–20; TEMP 36.5–36.8; O2SAT 90–97; BMI 82.7
--- NOTE | 2020-07-24 13:40 | XR_ITS ---
WS: [id number] Right knee, 3 views, 07/24/2020 Clinical Data: severe rt knee pain Comparison: Right knee, 10/26/2019. Findings: There is severe lateral joint space narrowing. There are large osteophytes of the medial and lateral tibial plateau and femoral condyles. There are posterior spurs of the right patella. No fractures or dislocations are seen. The soft tissues are unremarkable. XR/XR knee RT 3V* [id number] Impression: Severe osteoarthritis of all joint compartments of the right knee.
--- NOTE | 2020-07-24 14:16 | W.ED.EXTPRO ---
HPI - Extremity Problem General: Chief complaint: Extremity Problem,Nontraumatic Stated complaint: KNEE PAIN Time Seen by Provider: 07/24/20 13:36 History of Present Illness: HPI Narrative: patient cared for Dr Radha Bhatti Vital Signs: Vital signs: Vital Signs Temperature 97.7 F 07/24/20 13:47 Pulse Rate 74 07/24/20 16:33 Respiratory Rate 18 07/24/20 16:33 Blood Pressure 145/72 07/24/20 16:33 Pulse Oximetry 93 07/24/20 16:33 MDM - Extremity (Nontraumatic) Lab Data: Labs: Lab Results 07/24/20 07/24/20 07/24/20 Range/Units 14:45 14:45 14:45 WBC 13.5 H (4.0-10.0) 10^3/ uL RBC 4.46 (4.1-5.3) 10^6/u L Hgb 13.3 (11.5-15.3) g/dL Hct 43.5 (37.0-47.0) % MCV 97.5 (81-99) fL MCH 29.8 (28.0-34.0) pg MCHC 30.6 (30.0-36.0) g/dL RDW 14.5 (12.1-15.1) % Plt Count 348 (130-400) 10^3/c mm MPV 10.2 (7.4-10.4) fL Neut % (Auto) 80.3 % Lymph % (Auto) 14.2 % [place] % (Auto) 3.7 % Eos % (Auto) 1.1 % Baso % (Auto) 0.4 % Neut # (Auto) 10.83 H (1.8-7.7) 10^3/u L Lymph # (Auto) 1.9 (0.8-4.8) 10^3/u L [place] # (Auto) 0.5 (0.2-0.9) 10^3/u L Eos # (Auto) 0.2 (0.0-0.8) 10^3/u L Baso # (Auto) 0.1 (0.0-0.1) 10^3/u L Nucleated RBC % (a uto) 0 % Nucleated RBCs # 0.0 /100WBC Sodium 135 L (136-145) mmol/L Potassium 4.3 (3.5-5.1) mmol/L Chloride 100 (98-107) mmol/L Carbon Dioxide 26 (22-29) mmol/L Anion Gap 13.3 (5-19) BUN 17 (6-20) mg/dL Creatinine 0.7 (0.5-0.9) mg/dL GFR Calculation 95.2 (90-130) mL/min Glucose 107 (65-115) mg/dL Calculated Osmolal ity 282 L (285-295) mOsm/k g Lactate 0.9 (0.5-2.2) mmol/L Calcium 8.9 (8.5-10.5) mg/dL Total Bilirubin 0.2 (0.15-1.2) mg/dL AST 14 (0-32) U/L ALT 10 (0-33) U/L Alkaline Phosphata se 254 H (35-105) IU/L NT-Pro-B Natriuret Pep 229 H (0-125) pg/mL Total Protein 7.2 (6.6-8.7) g/dL Albumin 3.2 L (3.5-5.2) g/dL Globulin 4.0 (1.3-4.6) g/dL HCG, Qual (Negative) 07/24/20 Range/Units 14:45 WBC (4.0-10.0) 10^3/ uL RBC (4.1-5.3) 10^6/u L Hgb (11.5-15.3) g/dL Hct (37.0-47.0) % MCV (81-99) fL MCH (28.0-34.0) pg MCHC (30.0-36.0) g/dL RDW (12.1-15.1) % Plt Count (130-400) 10^3/c mm MPV (7.4-10.4) fL Neut % (Auto) % Lymph % (Auto) % [place] % (Auto) % Eos % (Auto) % Baso % (Auto) % Neut # (Auto) (1.8-7.7) 10^3/u L Lymph # (Auto) (0.8-4.8) 10^3/u L [place] # (Auto) (0.2-0.9) 10^3/u L Eos # (Auto) (0.0-0.8) 10^3/u L Baso # (Auto) (0.0-0.1) 10^3/u L Nucleated RBC % (a uto) % Nucleated RBCs # /100WBC Sodium (136-145) mmol/L Potassium (3.5-5.1) mmol/L Chloride (98-107) mmol/L Carbon Dioxide (22-29) mmol/L Anion Gap (5-19) BUN (6-20) mg/dL Creatinine (0.5-0.9) mg/dL GFR Calculation (90-130) mL/min Glucose (65-115) mg/dL Calculated Osmolal ity (285-295) mOsm/k g Lactate (0.5-2.2) mmol/L Calcium (8.5-10.5) mg/dL Total Bilirubin (0.15-1.2) mg/dL AST (0-32) U/L ALT (0-33) U/L Alkaline Phosphata se (35-105) IU/L NT-Pro-B Natriuret Pep (0-125) pg/mL Total Protein (6.6-8.7) g/dL Albumin (3.5-5.2) g/dL Globulin (1.3-4.6) g/dL HCG, Qual Negative (Negative) Discharge Plan Discharge Prescriptions: No Action loperamide 2 mg Tablet 2 mg PO Q8H PRN (Reason: Diarrhea) RF: 0 Banophen 25 mg Capsule 25 mg PO Q6H PRN (Reason: Allergy Symptoms) RF: 0 Vitamin D3 25 mcg (1,000 unit) Capsule 25 mcg PO DAILY@08 RF: 0 Throat Discs Lozenge 1 [place] MUCOUS MEMBRANE . DIRECTED PRN (Reason: Cough) RF: 0 cyclobenzaprine 10 mg Tablet 10 mg PO TID PRN (Reason: MUSCLE SPASMS) RF: 0 cetirizine 10 mg Tablet 10 mg PO DAILY@08 RF: 0 oxcarbazepine 300 mg Tablet 300 mg PO BID@08,20 RF: 0 levothyroxine 100 mcg Tablet 100 mcg PO DAILY@08 RF: 0 famotidine 20 mg Tablet 20 mg PO DAILY@08 RF: 0 norgestimate-ethinyl estradiol [Tri-Linyah] 0.18/0.215/0.25 mg-35 mcg (28) Tablet 1 tab PO DAILY@08 RF: 0 hydroxyzine HCl 25 mg Tablet 25 mg PO DAILY PRN (Reason: Anxiety) RF: 0 fluticasone propionate 50 mcg/actuation [place],Suspension 1 spray INTRANASAL DAILY@14 RF: 0 sertraline 50 mg Tablet 150 mg PO DAILY@08 RF: 0 bupropion HCl 300 mg Tablet Extended Release 24 Hr 300 mg PO DAILY@08 RF: 0 epinephrine 0.3 mg/0.3 mL Syringe See Rx Instructions .ROUTE .COMPLEX RF: 0 potassium chloride 20 mEq Tablet Extended Release 20 meq PO DAILY@08 RF: 0 gabapentin 600 mg Tablet 600 mg PO TID@08,14,20 RF: 0 Icy Hot Extra Strength See Rx Instructions .ROUTE .COMPLEX RF: 0 furosemide [Lasix] 80 mg Tablet 80 mg PO DAILY@08 RF: 0 calcium carbonate-vitamin D3 [Oyster Shell Calcium-Vit D3] 500 mg(1,250mg) -200 unit Tablet 1 tab PO DAILY@08 RF: 0 ondansetron 4 mg tablet,disintegrating 4 mg PO Q6H PRN (Reason: nausea and vomiting) Qty: 14 RF: 0 diphenoxylate-atropine [Lomotil] 2.5-0.025 mg tablet 1 tab PO DAILY PRN (Reason: diarrhea) Qty: 5 RF: 0 Coding Level of Care Code ED Diamond Cutter for Luis Carlos Lee
[2020-07-24] MEDS: HYDROmorphone 1 mg/mL INJ 1 mL 0.5 MG IVP (14:56)
[2020-07-24 15:00] LABS: Basophils # 0.1 10^3/uL (0.0-0.1); Basophils % 0.4 %; Eosinophils # 0.2 10^3/uL (0.0-0.8); Eosinophils % 1.1 %; Hematocrit 43.5 % (37.0-47.0); Hemoglobin 13.3 g/dL (11.5-15.3); Lymphocytes # 1.9 10^3/uL (0.8-4.8); Lymphocytes % 14.2 %; Mean Corpuscular HGB Conc 30.6 g/dL (30.0-36.0); Mean Corpuscular Hemoglobin 29.8 pg (28.0-34.0); Mean Corpuscular Volume 97.5 fL (81-99); Mean Platelet Volume 10.2 fL (7.4-10.4); Monocytes # 0.5 10^3/uL (0.2-0.9); Monocytes % 3.7 %; Neutrophils # 10.83 10^3/uL (1.8-7.7); Neutrophils % 80.3 %; Nucleated Red Blood Cells % 0 %; Platelet Count 348 10^3/cmm (130-400); Red Blood Count 4.46 10^6/uL (4.1-5.3); Red Cell Distribution Width 14.5 % (12.1-15.1); White Blood Count 13.5 10^3/uL (4.0-10.0)
[2020-07-24 15:17] LABS: Lactate (Lactic Acid level) 0.9 mmol/L (0.5-2.2)
[2020-07-24 15:21] LABS: HCG, Serum Qual Negative (Negative)
[2020-07-24 15:26] LABS: Alanine Aminotransferase 10 U/L (0-33); Albumin Level 3.2 g/dL (3.5-5.2); Alkaline Phosphatase 254 IU/L (35-105); Aspartate Amino Transferase 14 U/L (0-32); Blood Urea Nitrogen 17 mg/dL (6-20); Calcium 8.9 mg/dL (8.5-10.5); Carbon Dioxide 26 mmol/L (22-29); Chloride 100 mmol/L (98-107); Glomerular Filtration Rate 95.2 mL/min (90-130); Glucose 107 mg/dL (65-115); NT Pro B Type Natriuretic Pept 229 pg/mL (0-125); Osmolality Calculated 282 mOsm/kg (285-295); Sodium 135 mmol/L (136-145); Total Bilirubin 0.2 mg/dL (0.15-1.2); Total Protein 7.2 g/dL (6.6-8.7)
[2020-07-24 15:30] LABS: Anion Gap 13.3 (5-19); Potassium 4.3 mmol/L (3.5-5.1)
--- NOTE | 2020-07-24 16:04 | PC.NURSE ---
pt refused UA
--- NOTE | 2020-07-24 16:10 | USCV_ITS ---
Deann Veag Age: 35 Gender: F : 1985 Exam Date: 07/24/2020 16:39 Ordering Phys: Ned Garcia MD Technologist: Gurwinder Valderrama Exam Location: [facility] [place] Indication: SWELLING HISTORY: Lower extremity swelling. PROCEDURES: Venous duplex imaging was performed in only the left lower extremity. The following venous structures were evaluated: common femoral vein, profunda vein, proximal portion of the greater saphenous vein, superficial femoral vein, and the popliteal vein. In addition, the posterior tibial and peroneal trunk were evaluated. FINDINGS: Normal 2-D Doppler and augmentation and compressibility throughout the lower extremity venous structures. Additional imaging through the proximal calf veins also reveals no thrombus. Limited evaluation of the greater saphenous vein is patent with no thrombus.. CONCLUSIONS No evidence of left lower extremity DVT. Prashanth Camilo MD (Electronically Signed) Final Date: 24 July 2020 17:06 S
[2020-07-24] MEDS: ampicillin-sulbactam 3 GM in sodium chloride 0.9% (plus) 50 ML IV (16:28)
[2020-07-24] MEDS: HYDROmorphone 1 mg/mL INJ 1 mL IVP (16:28)
--- NOTE | 2020-07-24 20:19 | P.HP_ITS ---
Providers/Chief Complaint Admitting Physician: Casa Beard MD Primary Care Provider: RANDY Stevens Chief Complaint: KNEE PAIN History of Present Illness Deann Vega is a 35-year-old female past medical history of hypothyroidism, morbid obesity, severe arthritis of the joints presented to the ER today complaining of extreme pain in her knees on trying to ambulation. She states she has had this complaint in the past as well. She states today when she was trying to get up to go to the grocery store she felt as if her knees locked up and after that she started having knee pain is not able to ambulate or stand after that. She denies any nausea vomiting, headache, dizziness, dysuria, diarrhea, cough, recent sick contacts allergies, itchiness. In the ER showed a white count 30.5, hemoglobin 13.3, sodium 135, creatinine 0.7, negative hCG, UA negative for any signs of infection. Patient was finding it difficult to ambulate or even stand up so ER physician requested patient to be admitted under hospitalist service under observation to social issues can be sought for safe discharge planning. Review of Systems General: Reports: 10 or more systems reviewed and unremarkable except in HPI and below Const: Denies: fever(s), chills, body aches, change in appetite, change in weight, malaise, night sweats, diaphoresis, change in sleep pattern, daytime sleepiness or snoring Eyes: Denies: change in vision, blurry vision, photophobia, eye discomfort or eye discharge ENMT: Denies: throat pain, enlarged tonsils, hoarseness, mouth pain, oral sores, dry mouth, tinnitus, nasal congestion or post nasal drip Card: Denies: chest pain, palpitations, irregular heart rhythm, edema, swelling of feet/ankles, lightheadedness, syncope, pre-syncope, dyspnea on exertion, orthopnea, leg pain with exertion or acrocyanosis Resp: Denies: dyspnea, productive cough, non-productive cough, wheezing, strid or, pain on inspiration, change in phlegm color, hemoptysis or chest congestion GI: Denies: abdominal pain, nausea, vomiting, hematemesis, coffee ground emesis, dysphagia, heartburn, diarrhea, constipation, bloating, GI cramping, change in bowel habits, pain on defecation, hematochezia or melena : Denies: flank pain, dysuria, urinary frequency, urinary urgency, urinary hesitancy, nocturia or hematuria Musc: Denies: neck pain, back pain, extremity pain, joint pain, joint swelling, joint redness, joint stiffness or limited range of motion Neuro: Denies: headache(s), numbness in extremities, weakness in extremities, sensory changes, lack of coordination, difficulty walking, frequent falls, dizziness, vertigo, confusion, Slurred speech present, difficulty communicating thoughts or seizure-like activity Psych: Denies: anxiety, depression, mood swings, panic attacks, hopelessness or irritability Endo: Denies: polyuria, polydipsia, tired all the time, cold intolerance, excessive sweating, flushing or heat intolerance Myles/Lymph: Denies: easy bruising or easy bleeding All/Imm: Denies: tongue swelling, facial swelling or acute wheezing Medications/Allergies Home Medications Medication Instructions Recorded Confirmed Last Taken Type bupropion HCl 300 mg PO DAILY@02/16/20 07/24/20 07/24/20 History cetirizine 10 mg PO DAILY@02/16/20 07/24/20 07/24/20 History cyclobenzaprine 10 mg PO TID PRN 02/16/20 07/24/20 Unknown History epinephrine See Rx Instructions .ROUTE .COMPLEX 02/16/20 07/24/20 Unknown History famotidine 20 mg PO DAILY@02/16/20 07/24/20 07/24/20 History fluticasone propionate 1 spray INTRANASAL DAILY@02/16/20 07/24/20 05/10/20 History hydroxyzine HCl 25 mg PO DAILY PRN 02/16/20 07/24/20 Unknown History levothyroxine 100 mcg PO DAILY@02/16/20 07/24/20 07/24/20 History norgestimate-ethinyl estradiol 1 tab PO DAILY@02/16/20 07/24/20 07/24/20 History [Tri-Linyah] oxcarbazepine 300 mg PO BID@02/16/20 07/24/20 07/24/20 08:00 History potassium chloride 20 meq PO DAILY@02/16/20 07/24/20 07/24/20 History sertraline 150 mg PO DAILY@08 02/16/20 07/24/20 07/24/20 08:00 History Icy Hot Extra Strength See Rx Instructions .ROUTE .COMPLEX 05/12/20 07/24/20 Unknown History calcium carbonate-vitamin D3 1 tab PO DAILY@08 05/12/20 07/24/20 07/24/20 History [Oyster Shell Calcium-Vit D3] diphenoxylate-atropine [Lomotil] 1 tab PO DAILY PRN #5 tab 05/12/20 07/24/20 Unknown Rx furosemide [Lasix] 80 mg PO DAILY@08 05/12/20 07/24/20 07/24/20 History gabapentin 600 mg PO TID@,05/12/20 07/24/20 07/24/20 14:00 History ondansetron 4 mg PO Q6H PRN #14 tab 05/12/20 07/24/20 Unknown Rx capsaicin-peppermint oil-anise 1 shelby MUCOUS MEMBRANE . DIRECTED 07/24/20 07/24/20 Unknown History [Throat Discs] PRN cholecalciferol (vitamin D3) 25 mcg PO DAILY@07/24/20 07/24/20 07/24/20 History [Vitamin D3] diphenhydramine HCl [Banophen] 25 mg PO Q6H PRN 07/24/20 07/24/20 Unknown His tory loperamide 2 mg PO Q8H PRN 07/24/20 07/24/20 Unknown History Allergies Allergy/AdvReac Type Severity Reaction Status Date / Time acetaminophen [From Tylenol] Allergy ALGY-Rash Verified 10/26/19 00:21 aspirin Allergy ALGY-Rash Verified 10/26/19 00:21 azithromycin Allergy ALGY-Rash Verified 10/26/19 00:22 haloperidol [From Haldol] Allergy ADR-Seizure Verified 10/26/19 00:21 ibuprofen Allergy Unknown Verified 10/26/19 00:21 tramadol Allergy ADR-Seizure Verified 10/26/19 00:21 PFSH Acute PFSH: Medical History (Updated 07/25/20 @ 13:38 by Csaa Beard MD) Cellulitis Hypothyroidism Leg pain Morbid obesity Family History (Updated 07/25/20 @ 13:47 by Casa Beard MD) Other CAD (coronary artery disease) Diabetes Social History (Updated 07/25/20 @ 13:47 by Casa Beard MD) Smoking and tobacco status: never smoked Alcohol intake: never Lives independently: Yes Housing: House Vitals/I&O/Wt Last Vital Signs Temp 97.7 F 07/24/20 13:47 Pulse 95 07/24/20 19:56 Resp 18 07/24/20 19:56 BP 153/74 07/24/20 19:56 Pulse Ox 92 07/24/20 19:56 Weight last 48 hrs Weight 218.632 kg Physical Exam Narrative: EXAM NARRATIVE: General: No acute distress, AO x3 morbid obesity HEENT: PERRLA, pupils bilaterally equal and reactive Chest: Normal vesicular breath sounds, no added sounds, equal good air entry bilaterally CVS: S1-S2 regular, no murmurs, no tachycardia, no gallops, no rubs Abdomen: Soft, nontender, no organomegaly, bowel sounds present Neuro: No focal deficits, no facial deformity, AO x3, power 5/5 in all limbs Data : 07/25/20 05:57 07/25/20 05:57 A&P Assessment and plan (1) Morbid obesity: Status: Acute (2) Cellulitis: Status: Acute (3) Leg pain: Status: Acute (4) Depression: Status: Acute (5) Hypothyroidism: Status: Acute Additional A&P Information Start patient on IV ceftriaxone for cellulitis. Pain control with morphine and Tylenol as needed. Leg elevation. Check HbA1c, TSH, iron panel, lipid panel, procalcitonin, MRSA swab, drug screen, flu swab. We will consult with case management for safe discharge planning. Admitted under observation. Attestations Medical Necessity Statement*: Admission for more than 2 midnights under observation because cellulitis, morbid obesity requiring safe discharge planning. Time Spent in Patient Care: Greater than 35 minutes Coding Level of Care Code Acute Student Success Advisor for [facility] Fwd Diagnoses Morbid obesity E66.01 Cellulitis L03.90 Leg pain M79.606 Depression F32.9 Hypothyroidism E03.9
[2020-07-24 21:14] LABS: Urine Appearance SL Hazy (CLEAR); Urine Color Yellow (Yellow)
[2020-07-24 21:15] LABS: Bacteria Urine 1+ /hpf; Bilirubin Urine Neg (Negative); Blood Urine Neg (Negative); Glucose Urine UA Norm (Normal); Ketones Urine Negative (Negative); Leukocyte Esterase Urine Trace (Negative); Nitrate Urine Negative (Negative); Protein Urine Neg (Negative); RBC Urine 0-4 /hpf (0-2); Specific Gravity, Urine 1.015 (1.005-1.030); Urobilinogen Urine Norm (Negative); pH Urine 5 (5-7)
[2020-07-24 21:16] LABS: Add Urine Culture? No
[2020-07-24 21:17] LABS: Amphetamines Screen Urine Negative (Negative); Barbiturates Screen Urine Negative (Negative); Benzodiazepines Screen Urine Negative (Negative); Cocaine Screen Urine Negative (Negative); Opiate Screen Urine Positive (Negative); PCP Screen Urine Negative (Negative); THC Screen Urine Negative (Negative)
[2020-07-24 21:30] LABS: Influenza A by IFA Negative (Negative); Influenza B by IFA Negative (Negative)
[2020-07-24] MEDS: HYDROmorphone 1 mg/mL INJ 1 mL 0.25 MG IVP (22:07)
[2020-07-24] MEDS: cefTRIAXone 1,000 MG in sodium chloride 0.9% (plus) 50 ML 100 MG IV (22:08)
[2020-07-24] MEDS: famotidine 20 mg/2 mL INJ IVP (22:08)
[2020-07-24 22:44] LABS: Procalcitonin 0.06 ng/mL (0-0.5)
[2020-07-24 22:55] LABS: Iron 54 ug/dL (37-145); Percent Saturation 12.1 % (20-50); Total Iron Binding Capacity 444 mcg/dl; Unsaturated Iron Binding 390 ug/dL (112-347)
[2020-07-25] VITALS (9 sets, daily range): BP systolic 112–154; BP diastolic 68–86; PULSE 88–92; RESP 16–19; TEMP 36.6–37; O2SAT 90–97; BMI 82.7
[2020-07-25] MEDS: HYDROmorphone 1 mg/mL INJ 1 mL 0.25 MG IVP ×2 (02:16→09:55)
[2020-07-25 06:02] LABS: Basophils # 0.1 10^3/uL (0.0-0.1); Basophils % 0.5 %; Eosinophils # 0.2 10^3/uL (0.0-0.8); Eosinophils % 1.4 %; Hematocrit 38.9 % (37.0-47.0); Lymphocytes # 2.2 10^3/uL (0.8-4.8); Mean Corpuscular HGB Conc 30.8 g/dL (30.0-36.0); Mean Corpuscular Hemoglobin 29.9 pg (28.0-34.0); Mean Corpuscular Volume 96.8 fL (81-99); Mean Platelet Volume 10.3 fL (7.4-10.4); Monocytes # 0.5 10^3/uL (0.2-0.9); Monocytes % 4.8 %; Neutrophils # 8.03 10^3/uL (1.8-7.7); Neutrophils % 72.8 %; Nucleated Red Blood Cells % 0 %; Platelet Count 354 10^3/cmm (130-400); Red Blood Count 4.02 10^6/uL (4.1-5.3); Red Cell Distribution Width 14.7 % (12.1-15.1)
[2020-07-25 06:33] LABS: Estmated Average Glucose 105; Hemoglobin A1C 5.3 % (4.0-6.0)
[2020-07-25 06:35] LABS: Alanine Aminotransferase 10 U/L (0-33); Albumin Level 3.3 g/dL (3.5-5.2); Alkaline Phosphatase 257 IU/L (35-105); Anion Gap 12.3 (5-19); Aspartate Amino Transferase 10 U/L (0-32); Blood Urea Nitrogen 20 mg/dL (6-20); Calcium 8.8 mg/dL (8.5-10.5); Carbon Dioxide 29 mmol/L (22-29); Chloride 104 mmol/L (98-107); Globulin 3.4 g/dL (1.3-4.6); Glomerular Filtration Rate 71.3 mL/min (90-130); Glucose 128 mg/dL (65-115); Osmolality Calculated 296 mOsm/kg (285-295); Potassium 4.3 mmol/L (3.5-5.1); Sodium 141 mmol/L (136-145); Total Bilirubin 0.2 mg/dL (0.15-1.2); Total Protein 6.7 g/dL (6.6-8.7)
[2020-07-25] MEDS: famotidine 20 mg/2 mL INJ IVP (08:18)
[2020-07-25] MEDS: sertraline 50 mg Tablet 150 MG PO (09:53)
[2020-07-25] MEDS: FUROsemide 40 mg Tablet 80 MG PO (09:53)
[2020-07-25] MEDS: bisacodyl 5 mg Tablet 10 MG PO (09:53)
[2020-07-25] MEDS: cyclobenzaprine 10 mg Tablet PO ×2 (09:54→16:39)
[2020-07-25] MEDS: potassium chloride ER 20 mEq Tablet PO (09:54)
[2020-07-25] MEDS: hyDROXYzine 25 mg Capsule PO (09:54)
[2020-07-25] MEDS: buPROPion XL (24 HR) 300 mg Tablet PO (09:54)
[2020-07-25] MEDS: OXcarbazepine 300 mg Tablet PO (09:54)
[2020-07-25] MEDS: ondansetron 2 mg/ML SDV 2 mL 4 MG IVP (09:55)
[2020-07-25] MEDS: levothyroxine 100 mcg Tablet PO (11:19)
--- NOTE | 2020-07-25 13:33 | P.DS_ITS ---
Discharge Providers Date of Admission: 07/24/20 18:17 Date of Discharge: July 25, 2020 Attending Provider at Admission: Casa Beard MD Attending Provider at Discharge: Casa Beard MD Primary Care Provider: RANDY Stevens Diagnoses at Discharge Discharge Diagnosis (1) Morbid obesity: Status: Acute (2) Cellulitis: Status: Acute (3) Leg pain: Status: Acute (4) Depression: Status: Acute (5) Hypothyroidism: Status: Acute Reason for Visit Reason for Visit: KNEE PAIN Hospital Course Hospital Course 35-year-old female past medical history of hypothyroidism, morbid obesity, severe arthritis of the joints presented to the ER today complaining of extreme pain in her knees on trying to ambulation. She states she has had this complaint in the past as well. She states today when she was trying to get up to go to the grocery store she felt as if her knees locked up and after that she started having knee pain is not able to ambulate or stand after that. She denies any nausea vomiting, headache, dizziness, dysuria, diarrhea, cough, recent sick contacts allergies, itchiness. In the ER showed a white count 30.5, hemoglobin 13.3, sodium 135, creatinine 0.7, negative hCG, UA negative for any signs of infection. As patient was unable to ambulate most likely from severe osteoarthritis cause because of severe morbid obesity she is into the hospital under observation for pain control and social service consult for safe discharge planning. On examination patient was found to have cellulitis of her leg for which she was started on antibiotics. Further work-up including urine toxicology was done which was positive only for opiates, TSH within normal limits with negative procalcitonin, iron panel was within normal limits. After social care consult patient is been discharged in hemodynamically stable condition with advised to follow-up with a primary care provider within next 1 week. Patient was counseled in detail regarding multiple comorbidities due to morbid obesity and modalities to help with morbid obesity including bariatric surgery. Patient states she was enrolled in the past for bariatric surgery at [facility] and would like to try again. Patient has been referred to Dr. Schumacher for further evaluation and management as needed. Patient has been given a referral for bariatric wheelchair. Physical Exam Narrative: EXAM NARRATIVE: General: No acute distress, AO x3 morbid obesity HEENT: PERRLA, pupils bilaterally equal and reactive Chest: Normal vesicular breath sounds, no added sounds, equal good air entry bilaterally CVS: S1-S2 regular, no murmurs, no tachycardia, no gallops, no rubs Abdomen: Soft, nontender, no organomegaly, bowel sounds present Neuro: No focal deficits, no facial deformity, AO x3, power 5/5 in all limbs Discharge Data Data Completed and Pending: Completed Studies During Hospitalization Category Date Time Status XR knee RT 3V* [id number] Stat Exams 07/24/20 13:40 [place] [id number] Urgent Ultrasound 07/24/20 16:10 Completed Pending at discharge Category Date Time Status Blood Culture Sta t Lab 07/24/20 20:09 Results MRSA by PCR [facility] 07/24/20 21:00 Received Labs from last 24 hours 07/25/20 07/25/20 07/25/20 05:57 05:57 05:57 WBC 11.0 H RBC 4.02 L Hgb 12.0 Hct 38.9 MCV 96.8 MCH 29.9 MCHC 30.8 RDW 14.7 Plt Count 354 MPV 10.3 Neut % (Auto) 72.8 Lymph % (Auto) 20.0 [place] % (Auto) 4.8 Eos % (Auto) 1.4 Baso % (Auto) 0.5 Neut # (Auto) 8.03 H Lymph # (Auto) 2.2 [place] # (Auto) 0.5 Eos # (Auto) 0.2 Baso # (Auto) 0.1 Nucleated RBC % (a uto) 0 Nucleated RBCs # 0.0 Sodium 141 Potassium 4.3 Chloride 104 Carbon Dioxide 29 Anion Gap 12.3 BUN 20 Creatinine 0.9 GFR Calculation 71.3 L Glucose 128 H Estimat Average Gl ucose 105 Hemoglobin A1c 5.3 Calculated Osmolal ity 296 H Lactate Calcium 8.8 Iron TIBC % Saturation Unsat Iron Binding Total Bilirubin 0.2 AST 10 ALT 10 Alkaline Phosphata se 257 H NT-Pro-B Natriuret Pep Total Protein 6.7 Albumin 3.3 L Globulin 3.4 Procalcitonin TSH HCG, Qual Urine Color Urine Appearance Urine pH Ur Specific Gravit y Urine Protein Urine Glucose (UA) Urine Ketones Urine Blood Urine Nitrate Urine Bilirubin Urine Urobilinogen Ur Leukocyte [place] Urine RBC Urine WBC Ur Squamous Epith Cells Amorphous Sediment Urine Bacteria Urine Opiates Scre en Ur Barbiturates Sc reen Ur Phencyclidine S crn Ur Amphetamines Sc reen U Benzodiazepines Scrn Urine Cocaine Scre en U Marijuana (THC) Screen Influenza Type A A g Influenza Type B A g 07/24/20 07/24/20 07/24/20 21:00 20:40 20:40 WBC RBC Hgb Hct MCV MCH MCHC RDW Plt Count MPV Neut % (Auto) Lymph % (Auto) [place] % (Auto) Eos % (Auto) Baso % (Auto) Neut # (Auto) Lymph # (Auto) [place] # (Auto) Eos # (Auto) Baso # (Auto) Nucleated RBC % (a uto) Nucleated RBCs # Sodium Potassium Chloride Carbon Dioxide Anion Gap BUN Creatinine GFR Calculation Glucose Estimat Average Gl ucose Hemoglobin A1c Calculated Osmolal ity Lactate Calcium Iron TIBC % Saturation Unsat Iron Binding Total Bilirubin AST ALT Alkaline Phosphata se NT-Pro-B Natriuret Pep Total Protein Albumin Globulin Procalcitonin TSH HCG, Qual Urine Color Yellow Urine Appearance Sl hazy Urine pH 5 Ur Specific Gravit y 1.015 Urine Protein Neg Urine Glucose (UA) Norm Urine Ketones Negative Urine Blood Neg Urine Nitrate Negative Urine Bilirubin Neg Urine Urobilinogen Norm Ur Leukocyte Paula ase Trace H Urine RBC 0-4 H Urine WBC 5-10 H Ur Squamous Epith Cells 10-15 H Amorphous Sediment Not Reportable Urine Bacteria 1+ H Urine Opiates Scre en Positive H Ur Barbiturates Sc reen Negative Ur Phencyclidine S crn Negative Ur Amphetamines Sc reen Negative U Benzodiazepines Scrn Negative Urine Cocaine Scre en Negative U Marijuana (THC) Screen Negative Influenza Type A A g Negative Influenza Type B A g Negative 07/24/20 07/24/20 07/24/20 14:45 14:45 14:45 WBC RBC Hgb Hct MCV MCH MCHC RDW Plt Count MPV Neut % (Auto) Lymph % (Auto) [place] % (Auto) Eos % (Auto) Baso % (Auto) Neut # (Auto) Lymph # (Auto) [place] # (Auto) Eos # (Auto) Baso # (Auto) Nucleated RBC % (a uto) Nucleated RBCs # Sodium Potassium Chloride Carbon Dioxide Anion Gap BUN Creatinine GFR Calculation Glucose Estimat Average Gl ucose Hemoglobin A1c Calculated Osmolal ity Lactate Calcium Iron 54 TIBC 444 % Saturation 12.1 L Unsat Iron Binding 390 H Total Bilirubin AST ALT Alkaline Phosphata se NT-Pro-B Natriuret Pep Total Protein Albumin Globulin Procalcitonin 0.06 TSH 3.30 HCG, Qual Negative Urine Color Urine Appearance Urine pH Ur Specific Gravit y Urine Protein Urine Glucose (UA) Urine Ketones Urine Blood Urine Nitrate Urine Bilirubin Urine Urobilinogen Ur Leukocyte Paula ase Urine RBC Urine WBC Ur Squamous Epith Cells Amorphous Sediment Urine Bacteria Urine Opiates Scre en Ur Barbiturates Sc reen Ur Phencyclidine S crn Ur Amphetamines Sc reen U Benzodiazepines Scrn Urine Cocaine Scre en U Marijuana (THC) Screen Influenza Type A A g Influenza Type B A g 07/24/20 07/24/20 07/24/20 14:45 14:45 14:45 WBC 13.5 H RBC 4.46 Hgb 13.3 Hct 43.5 MCV 97.5 MCH 29.8 MCHC 30.6 RDW 14.5 Plt Count 348 MPV 10.2 Neut % (Auto) 80.3 Lymph % (Auto) 14.2 [place] % (Auto) 3.7 Eos % (Auto) 1.1 Baso % (Auto) 0.4 Neut # (Auto) 10.83 H Lymph # (Auto) 1.9 [place] # (Auto) 0.5 Eos # (Auto) 0.2 Baso # (Auto) 0.1 Nucleated RBC % (a uto) 0 Nucleated RBCs # 0.0 Sodium 135 L Potassium 4.3 Chloride 100 Carbon Dioxide 26 Anion Gap 13.3 BUN 17 Creatinine 0.7 GFR Calculation 95.2 Glucose 107 Estimat Average Gl ucose Hemoglobin A1c Calculated Osmolal ity 282 L Lactate 0.9 Calcium 8.9 Iron TIBC % Saturation Unsat Iron Binding Total Bilirubin 0.2 AST 14 ALT 10 Alkaline Phosphata se 254 H NT-Pro-B Natriuret Pep 229 H Total Protein 7.2 Albumin 3.2 L Globulin 4.0 Procalcitonin TSH HCG, Qual Urine Color Urine Appearance Urine pH Ur Specific Gravit y Urine Protein Urine Glucose (UA) Urine Ketones Urine Blood Urine Nitrate Urine Bilirubin Urine Urobilinogen Ur Leukocyte Paula ase Urine RBC Urine WBC Ur Squamous Epith Cells Amorphous Sediment Urine Bacteria Urine Opiates Scre en Ur Barbiturates Sc reen Ur Phencyclidine S crn Ur Amphetamines Sc reen U Benzodiazepines Scrn Urine Cocaine Scre en U Marijuana (THC) Screen Influenza Type A A g Influenza Type B A g Vitals: Last Vital Signs Temp 98.6 F 07/25/20 12:00 Pulse 91 07/25/20 12:00 Resp 17 07/25/20 12:00 BP 144/69 07/25/20 12:00 Pulse Ox 91 07/25/20 12:00 Discharge Plan Discharge Patient Disposition: Home Health Service Condition: Stable Prescriptions: New levofloxacin 500 mg tablet 500 mg PO DAILY 5 Days Qty: 5 RF: 0 amoxicillin-pot clavulanate [Augmentin] 875-125 mg tablet 1 tab PO BID 5 Days Qty: 10 RF: 0 Continued loperamide 2 mg Tablet 2 mg PO Q8H PRN (Reason: Diarrhea) RF: 0 Banophen 25 mg Capsule 25 mg PO Q6H PRN (Reason: Allergy Symptoms) RF: 0 Vitamin D3 25 mcg (1,000 unit) Capsule 25 mcg PO DAILY@08 RF: 0 Throat Discs Lozenge 1 shelby MUCOUS MEMBRANE . DIRECTED PRN (Reason: Cough) RF: 0 cyclobenzaprine 10 mg Tablet 10 mg PO TID PRN (Reason: MUSCLE SPASMS) RF: 0 cetirizine 10 mg Tablet 10 mg PO DAILY@08 RF: 0 oxcarbazepine 300 mg Tablet 300 mg PO BID@08,20 RF: 0 levothyroxine 100 mcg Tablet 100 mcg PO DAILY@08 RF: 0 famotidine 20 mg Tablet 20 mg PO DAILY@08 RF: 0 norgestimate-ethinyl estradiol [Tri-Linyah] 0.18/0.215/0.25 mg-35 mcg (28) Tablet 1 tab PO DAILY@08 RF: 0 hydroxyzine HCl 25 mg Tablet 25 mg PO DAILY PRN (Reason: Anxiety) RF: 0 fluticasone propionate 50 mcg/actuation Serena,Suspension 1 spray INTRANASAL DAILY@14 RF: 0 sertraline 50 mg Tablet 150 mg PO DAILY@08 RF: 0 bupropion HCl 300 mg Tablet Extended Release 24 Hr 300 mg PO DAILY@08 RF: 0 epinephrine 0.3 mg/0.3 mL Syringe See Rx Instructions .ROUTE .COMPLEX RF: 0 potassium chloride 20 mEq Tablet Extended Release 20 meq PO DAILY@08 RF: 0 gabapentin 600 mg Tablet 600 mg PO TID@08,14,20 RF: 0 Icy Hot Extra Strength See Rx Instructions .ROUTE .COMPLEX RF: 0 furosemide [Lasix] 80 mg Tablet 80 mg PO DAILY@08 RF: 0 calcium carbonate-vitamin D3 [Oyster Shell Calcium-Vit D3] 500 mg(1,250mg) - 200 unit Tablet 1 tab PO DAILY@08 RF: 0 ondansetron 4 mg tablet,disintegrating 4 mg PO Q6H PRN (Reason: nausea and vomiting) Qty: 14 RF: 0 diphenoxylate-atropine [Lomotil] 2.5-0.025 mg tablet 1 tab PO DAILY PRN (Reason: diarrhea) Qty: 5 RF: 0 Discharge Orders: Discharge Order (Routine); Ordered 07/25/20 Ordered By: Casa Beard Other Ambulatory Orders: DME: Wheelchair (Order) Location: None Selected Ordered By: Casa Beard Referrals: Fern Aguilar FNP [Primary Care Provider] - 7-10 days Malachi Schumacher MD [Physician] - 1 month (Bariatric) Discharge Diet: Usual diet Discharge Activity: Resume usual activity Patient Instructions: Opioid Safety Activity Restrictions/Additional Instructions: Please take Augmentin levofloxacin which is at the antibiotics for next 5 days to finish a course of antibiotics or cellulitis. Please follow-up with Dr. Cobian for possible bariatric surgery. Discharge Attestations Time Spent in Discharge Care*: greater than 30 min Specific Discharge Activities: educating patient, discussing with case picker/social workers/dc planners, documenting/other paperwork and evaluating patient/reviewing data Status at Discharge: Cognitive status at discharge: cognitively intact , Behavioral status at discharge: cooperative , Functional status at discharge: wheelchair bound Overall status at discharge: patient is back to baseline Quality Metrics Clinical Quality Measures During this hospital stay, did patient experience: None Coding Level of Care Code Acute Chg FW DC note Diagnoses Morbid obesity E66.01 Cellulitis L03.90 Leg pain M79.606 Depression F32.9 Hypothyroidism E03.9
--- NOTE | 2020-07-25 13:57 | PC.CHAP ---
Pastoral Care Encounter/Spiritual Assessment Type of Contact [xx] Declined wiper blender visit [] Patient/Family/Request visit [] Outpatient visit [] Follow-up visit [] Physician referral [] Code/Alert [] Routine visit [] Staff referral [] Actively dying [] Patient sleeping [] Family support [] [] Out of room [] Palliative care [] [] Receiving care in room [] Pre-surgical visit [] Trauma [] Long length of stay [] ICU visit [] Other: Relational/Emotional Strength [] Patient feels connected with others/family/visitors/staff [] Distress [] Loneliness/isolation [] Abandonment Spirituality of Patient [] Person of Imelda [] Attends Religion of their [place] [] Believes in Prayer [] Reads Bible or Restorationist materials [] There are Spiritual issues to be addressed [place] Interventions [] Prayer [] Active listening [] Non-anxious presence [] Spiritual/emotional support [] Crisis/trauma care [] Spiritual counseling [] Bereavement support [] Provided bereavement packet [] Provided Bible/devotional materials [] Provided toy/stuffed animal, coloring book to patient or family member [] Provided Communion [] Anointing/[place] [] Salvation [] Completed spiritual assessment [] Other: Impact on Illness or Injury [] Angry [] Fearful [] Anxious [] Often cries [] Exhaustion [] Unable to work [] Unable to attend adventist [] Unable to walk/stand [] Unable to read [] Unable to drive [] Unable to eat/drink [] Unable to sleep [] Unable to be with family [] Patient intubated [] Other: Summary Patient declined all contact with wiper blender. Time spent with patient 2 minutes
--- NOTE | 2020-07-25 14:56 | PC.NURSE ---
IV pt is nervous about IV, yells out in pain, refuses to let nurse do anything with it, she did allow medication after conversation, she is being released.
--- NOTE | 2020-07-25 14:57 | PC.NURSE ---
Wheelchair ordered per provider wheel chair will arrive in 2 weeks, order placed, pt informed , guardian informed
[2020-07-25] MEDS: gabapentin 300 mg Capsule 600 MG PO (15:15)
== END 2020-07-25 17:19 | disposition home health service (06) ==
LOC: ER 14:13 → MEDSURG 18:35
PROVIDERS: Admitting Provider Student in an Organized Health Care Education/Training Program; Emergency Provider Family Medicine; PCP Nurse Practitioner Family; Visit Provider Student in an Organized Health Care Education/Training Program
DX: M25.562 Pain in left knee (principal); M79.89 Other specified soft tissue disorders; M25.561 Pain in right knee; E66.01 Morbid (severe) obesity due to excess calories; Z68.45 Body mass index [BMI] 70 or greater, adult; L03.90 Cellulitis, unspecified; F32.9 Major depressive disorder, single episode, unspecified; E03.9 Hypothyroidism, unspecified; M19.90 Unspecified osteoarthritis, unspecified site
CPT/HCPCS: 36415; 73562; 80053; 80306; 81001; 83036; 83540; 83550; 83605; 83880; 84145; 84443; 84703; 85025; 87040; 87641; 87804; 93971; 94664; 96365; 96367; 96375; 96376; 97116; 97161; 99285; G0378; J0295; J0696; J1170; J1650; J2405; J3490

== ENCOUNTER 2020-07-28 21:01 | Emergency (ER) | payer MEDICAID, SELFPAY ==
[2020-07-28 21:09] VITALS: BP 160/83; PULSE 81; RESP 20; TEMP 36.7; O2SAT 94; BMI 80.3
[2020-07-28 21:13] VITALS: BP 160/83; PULSE 79; RESP 18; O2SAT 96
--- NOTE | 2020-07-28 21:21 | XR_ITS ---
WS: [id number] Exam: XR knee LT 3V* [id number] Date/Time of Exam: 07/28/2020 9:42 PM Reason For Exam: pain, fall Comparison 10/26/2019. There is moderate tricompartmental DJD of the knee. No fracture or dislocation is seen. No joint effu norma is noted. XR/XR knee LT 3V* [id number] IMPRESSION: 1. Moderate tricompartmental DJD. No fracture.
--- NOTE | 2020-07-28 21:27 | W.ED.EXTPRO ---
HPI - Extremity Problem General: Chief complaint: Extremity Injury, Lower Stated complaint: FALL Time Seen by Provider: 07/28/20 21:09 History of Present Illness: HPI Narrative: Patient fell tonight while getting out of bathtub and says she has left knee pain now. Says he cannot straighten her knee out because of the pain. Complaint: joint pain Onset (ago): minute(s) Pain Consistency: constant Location: left and knee Severity scale (1-10): 4 Quality: aching Radiation: none Relieving factors: immobilization Exacerbating factors: range of motion Associated symptoms: Reports no associated symptoms; Deny chest pain, fever(s) or rash Review of Systems Const: Denies: fever(s), chills or body aches Eyes: Denies: change in vision or blurry vision ENMT: Denies: throat pain or nasal congestion Card: Denies: chest pain or dyspnea on exertion Resp: Denies: dyspnea, productive cough or non-productive cough GI: Denies: abdominal pain, nausea or vomiting Musc: Reports: joint pain (Left knee); Denies: extremity pain Skin/Breast: Reports: other (Has cellulitis currently being treated to lower extremities); Denies: rash Neuro: Denies: headache(s) Psych: Denies: anxiety or depression Myles/Lymph: Denies: easy bruising PFSH ED PFSH: Medical History (Updated 07/28/20 @ 21:56 by RANDY Ferris) Cellulitis Depression Hypothyroidism Leg pain Morbid obesity Osteoarthritis Family History (Updated 07/25/20 @ 13:47 by Casa Beard MD) Other CAD (coronary artery disease) Diabetes Social History (Updated 07/25/20 @ 13:47 by Casa Beard MD) Smoking and tobacco status: never smoked Alcohol intake: never Lives independently: Yes Housing: House Physical Exam Const: COMMON NORMALS: no acute distress Extremity: LEFT LOWER EXTREMITY: Yes knee joint (Left knee tender palpation no swelling noted decreased range of motion) OTHER: Lower extremities with some mild cellulitis dry skin redness some some weeping. Psych: COMMON NORMALS: Normal thought process present and cooperative ATTITUDE: Yes Belligerent attititude/behavior present THOUGHT PROCESS: Normal thought process present Course Vital Signs: Vital signs: Vital Signs Temperature 98.0 F 04/26/21 21:09 Pulse Rate 79 07/28/20 21:13 Respiratory Rate 18 07/28/20 21:13 Blood Pressure 160/83 07/28/20 21:13 Pulse Oximetry 96 07/28/20 21:13 MDM - Extremity (Nontraumatic) Imaging Data^: Xray Ortho: My impression: No acute fracture or dislocation noted Discharge Plan Discharge Patient Disposition: Home Clinical Impression: Sprain of knee Qualifiers: Encounter type: initial encounter Involved ligament of knee: unspecified ligament Laterality: left Qualified Code(s): S83.92XA - Sprain of unspecified site of left knee, initial encounter Condition: Stable Prescriptions: New Celebrex 100 mg capsule 200 mg PO BID Qty: 20 RF: 0 No Action loperamide 2 mg Tablet 2 mg PO Q8H PRN (Reason: Diarrhea) RF: 0 Banophen 25 mg Capsule 25 mg PO Q6H PRN (Reason: Allergy Symptoms) RF: 0 Vitamin D3 25 mcg (1,000 unit) Capsule 25 mcg PO DAILY@08 RF: 0 capsaicin-peppermint oil-anise Lozenge 1 shelby MUCOUS MEMBRANE . DIRECTED PRN (Reason: Cough) RF: 0 Augmentin 875-125 mg tablet 1 tab PO BID 5 Days Qty: 10 RF: 0 levofloxacin 500 mg tablet 500 mg PO DAILY 5 Days Qty: 5 RF: 0 cyclobenzaprine 10 mg Tablet 10 mg PO TID PRN (Reason: MUSCLE SPASMS) RF: 0 cetirizine 10 mg Tablet 10 mg PO DAILY@08 RF: 0 oxcarbazepine 300 mg Tablet 300 mg PO BID@08,20 RF: 0 levothyroxine 100 mcg Tablet 100 mcg PO DAILY@08 RF: 0 famotidine 20 mg Tablet 20 mg PO DAILY@08 RF: 0 norgestimate-ethinyl estradiol [Tri-Linyah] 0.18/0.215/0.25 mg-35 mcg (28) Tablet 1 tab PO DAILY@08 RF: 0 hydroxyzine HCl 25 mg Tablet 25 mg PO DAILY PRN (Reason: Anxiety) RF: 0 fluticasone propionate 50 mcg/actuation [place],Suspension 1 spray INTRANASAL DAILY@14 RF: 0 sertraline 50 mg Tablet 150 mg PO DAILY@08 RF: 0 bupropion HCl 300 mg Tablet Extended Release 24 Hr 300 mg PO DAILY@08 RF: 0 epinephrine 0.3 mg/0.3 mL Syringe See Rx Instructions .ROUTE .COMPLEX RF: 0 potassium chloride 20 mEq Tablet Extended Release 20 meq PO DAILY@08 RF: 0 gabapentin 600 mg Tablet 600 mg PO TID@08,14,20 RF: 0 Icy Hot Extra Strength See Rx Instructions .ROUTE .COMPLEX RF: 0 furosemide [Lasix] 80 mg Tablet 80 mg PO DAILY@08 RF: 0 calcium carbonate-vitamin D3 [Oyster Shell Calcium-Vit D3] 500 mg(1,250mg) -200 unit Tablet 1 tab PO DAILY@08 RF: 0 ondansetron 4 mg tablet,disintegrating 4 mg PO Q6H PRN (Reason: nausea and vomiting) Qty: 14 RF: 0 diphenoxylate-atropine [Lomotil] 2.5-0.025 mg tablet 1 tab PO DAILY PRN (Reason: diarrhea) Qty: 5 RF: 0 Discharge Orders: Discharge ED (Routine); Ordered 07/28/20 Ordered By: Kike Amos Referrals: Fern Aguilar FNP [Primary Care Provider] - Discharge Diet: Usual diet Discharge Activity: Increase activity as tolerated Patient Instructions: Knee Sprain (ED) Activity Restrictions/Additional Instructions: Follow-up with medical provider as directed. Take medications as prescribed. Return to the ER or your medical provider if condition worsens. Please read and understand discharge instructions. If any questions ask please. Apply ice to area as needed. Coding Level of Care Code ED Hematology Specialist for Luis Carlos Fwaysha Exam Expanded Problem Focused
[2020-07-28] MEDS: CELEcoxib 200 mg Capsule 400 MG PO (21:47)
== END 2020-07-28 22:04 | disposition home or self-care (01) ==
PROVIDERS: Emergency Provider Nurse Practitioner Family; PCP Nurse Practitioner Family
DX: S83.92XA Sprain of unspecified site of left knee, initial encounter (principal); W18.2XXA Fall in (into) shower or empty bathtub, initial encounter
CPT/HCPCS: 73562; 99283

== ENCOUNTER 2020-09-19 17:43 | Inpatient (IN) | payer MEDICAID, SELFPAY ==
[2020-09-19 18:20] VITALS: BP 160/81; PULSE 118; RESP 28; TEMP 36.7; O2SAT 80; BMI 85.8
--- NOTE | 2020-09-19 18:50 | XRR_ITS ---
PROCEDURE INFORMATION: Exam: XR Chest Exam date and time: 09/19/2020 6:50 PM Age: 35 years old Clinical indication: Cough; Additional info: SOB TECHNIQUE: Imaging protocol: XR of the chest. Views: 1 view. COMPARISON: CT abdomen pelvis w con* [id number] 02/16/2020 5:48 PM FINDINGS: Lungs: Decreased lung volumes. No focal airspace consolidation. There is mild prominence of central pulmonary vasculature. Pleural spaces: Unremarkable. No pleural effusion. No pneumothorax. Heart/Mediastinum: Mild cardiac enlargement. Bones/joints: Unremarkable. XR/XR chest 1V portable [id number] IMPRESSION: Mild central pulmonary vascular congestion changes.
[2020-09-19 19:59] LABS: ABG PCO2 52.5 mmHg (35-45); ABG PH Result 7.42 (7.35-7.45); Arterial Blood Gas Hematocrit 41.7 % (37-47); Base Excess ABG 7.4 mmol/L (-2.0-2.0); Blood Gas Allen Test Pos; Blood Gas Operator Identificat HARKR; Blood Gas Sample Site Radial, right; Blood Gas Sample Type Arterial; HCO3 ABG 33.6 mmol/L (22-26); Oxygen Device NC; PO2 ABG 85.8 mmHg (80.0-100.0)
[2020-09-19 21:46] LABS: Lactic Sepsis W/Reflex 0.6 mmol/L (0.5-2.2)
[2020-09-19 21:51] LABS: NT Pro B Type Natriuretic Pept 1118 pg/mL (0-125); Procalcitonin 0.06 ng/mL (0-0.5)
[2020-09-19 21:53] LABS: SARS Covid-2 Antigen Negative (Negative)
[2020-09-19 22:02] LABS: Basophils # 0.1 10^3/uL (0.0-0.1); Basophils % 0.5 %; Eosinophils # 0.2 10^3/uL (0.0-0.8); Eosinophils % 1.3 %; Hematocrit 43.1 % (37.0-47.0); Lymphocytes # 2.9 10^3/uL (0.8-4.8); Lymphocytes % 17.9 %; Mean Corpuscular HGB Conc 30.2 g/dL (30.0-36.0); Mean Platelet Volume 10.6 fL (7.4-10.4); Monocytes # 0.9 10^3/uL (0.2-0.9); Monocytes % 5.8 %; Neutrophils # 11.78 10^3/uL (1.8-7.7); Neutrophils % 74.1 %; Nucleated Red Blood Cells % 0.2 %; Platelet Count 315 10^3/cmm (130-400); Red Blood Count 4.49 10^6/uL (4.1-5.3); Red Cell Distribution Width 15.3 % (12.1-15.1); White Blood Count 15.9 10^3/uL (4.0-10.0)
[2020-09-19 22:03] LABS: Alanine Aminotransferase 16 U/L (0-33); Albumin Level 3.1 g/dL (3.5-5.2); Alkaline Phosphatase 262 IU/L (35-105); Blood Urea Nitrogen 11 mg/dL (6-20); C Reactive Protein 141.6 mg/L (0.0-4.9); Calcium 8.7 mg/dL (8.5-10.5); Carbon Dioxide 28 mmol/L (22-29); Chloride 96 mmol/L (98-107); Ferritin 28 ng/mL (15-150); Globulin 4.1 g/dL (1.3-4.6); Glomerular Filtration Rate 81.6 mL/min (90-130); Glucose 92 mg/dL (65-115); Osmolality Calculated 283 mOsm/kg (285-295); Sodium 137 mmol/L (136-145); Total Bilirubin 0.3 mg/dL (0.15-1.2); Total Protein 7.2 g/dL (6.6-8.7)
[2020-09-19 22:04] LABS: Anion Gap 17.6 (5-19); Aspartate Amino Transferase 23 U/L (0-32); Potassium 4.6 mmol/L (3.5-5.1)
--- NOTE | 2020-09-19 22:10 | P.HP_ITS ---
Providers/Chief Complaint Primary Care Provider: RANDY Stevens Chief Complaint: SOB, FATIGUE, COUGH, LOSS SMELL/TASTE History of Present Illness Deann Vega is a 35 year old female who is a resident of isolated assisted living, presented today with chief complaint of worsening shortness of breath. Her caregiver is at the bedside who is endorsing that for last 1 to 2 weeks she has been experiencing diarrhea, no febrile episodes were noticed, no active bleeding noticed in her stool, no recent use of antibiotics. Patient is end orsing history of irritable bowel syndrome and stating that her appetite has decreased significantly, she has not eaten well in last few days, she feels she is getting dehydrated and lethargic, her caregiver is stating that mostly she is incontinent but her diaper has been dry lately. Today she was brought to the hospital because she was very lethargic and was saturating 60 to 70% on room air. She was evaluated at [facility], recommendation was given to go to the ER for further evaluation. At baseline she ambulates using a walker, she lives in an isolated assisted living, no sick contact, she is denying febrile episodes, however endorsing abdominal pain with diarrhea. Diagnosis in the ER revealed CHF exacerbation, Covid antigen negative, inflammatory markers are high, PCR was sent, she has negative procalcitonin high BNP, requiring 4 to 5 L of oxygenation via nasal cannula, secondary to her weight CT abdomen was not possible, she has high D-dimer, heparin drip initiated Review of Systems Const: Reports: chills, body aches, change in appetite, fatigue and malaise Eyes: Denies: change in vision ENMT: Denies: throat pain Card: Reports: swelling of feet/ankles, dyspnea on exertion and orthopnea; Denies: chest pain Resp: Reports: dyspnea GI: Reports: abdominal pain and diarrhea : Reports: urinary incontinence Musc: Denies: neck pain Skin/Breast: Denies: rash Neuro: Reports: headache(s) Psych: Reports: anxiety and difficulty concentrating Endo: Denies: polyuria Myles/Lymph: Denies: easy bruising All/Imm: Denies: urticaria Medications/Allergies Home Medications Medication Instructions Recorded Confirmed Last Taken Type bupropion HCl 300 mg PO DAILY@02/16/20 09/19/20 09/19/20 History cetirizine 10 mg PO DAILY@08 02/16/20 09/19/20 09/19/20 History cyclobenzaprine 10 mg PO TID PRN 02/16/20 09/19/20 09/09/20 History epinephrine See Rx Instructions .ROUTE .COMPLEX 02/16/20 09/19/20 Unknown History famotidine 20 mg PO DAILY@08 02/16/20 09/19/20 09/19/20 History fluticasone propionate 1 spray INTRANASAL DAILY@02/16/20 09/19/20 09/19/20 History hydroxyzine HCl 25 mg PO DAILY PRN 02/16/20 09/19/20 Unknown History levothyroxine 100 mcg PO DAILY@02/16/20 09/19/20 09/19/20 History norgestimate-ethinyl estradiol 1 tab PO DAILY@08 02/16/20 09/19/20 09/19/20 History [Tri-Linyah] potassium chloride 20 meq PO DAILY@02/16/20 09/19/20 09/19/20 History sertraline 150 mg PO DAILY@02/16/20 09/19/20 09/19/20 History Icy Hot Extra Strength See Rx Instructions .ROUTE .COMPLEX 05/12/20 09/19/20 Unknown History calcium carbonate-vitamin D3 1 tab PO DAILY@05/12/20 09/19/20 09/19/20 History [Oyster Shell Calcium-Vit D3] diphenoxylate-atropine [Lomotil] 1 tab PO DAILY PRN #5 tab 05/12/20 09/19/20 09/18/20 Rx furosemide [Lasix] 80 mg PO DAILY@08 05/12/20 09/19/20 09/19/20 History gabapentin 600 mg PO TID@08,,05/12/20 09/19/20 09/19/20 History ondansetron 4 mg PO Q6H PRN #14 tab 05/12/20 09/19/20 09/18/20 Rx cholecalciferol (vitamin D3) 25 mcg PO DAILY@08 07/24/20 09/19/20 09/19/20 History [Vitamin D3] diphenhydramine HCl [Banophen] 25 mg PO Q6H PRN 07/24/20 09/19/20 Unknown History capsaicin-peppermint oil-anise See Rx Instructions .ROUTE .COMPLEX 09/19/20 09/19/20 09/19/20 History celecoxib [Celebrex] 200 mg PO BID@0800,199909/19/20 09/19/20 09/19/20 History Allergies Allergy/AdvReac Type Severity Reaction Status Date / Time acetaminophen [From Tylenol] Allergy ALGY-Rash Verified 08/30/20 11:17 aspirin Allergy ALGY-Rash Verified 08/30/20 11:17 azithromycin Allergy ALGY-Rash Verified 08/30/20 11:17 haloperidol [From Haldol] Allergy ADR-Seizure Verified 08/30/20 11:17 tramadol Allergy ADR-Seizure Verified 08/30/20 11:17 ibuprofen AdvReac Mild Unknown Verified 08/30/20 11:17 PFSH Acute PFSH: Medical History Cellulitis Depression Hypothyroidism Leg pain Morbid obesity Osteoarthritis Surgical History History of cholecystectomy 2017-lap History of colonoscopy with polypectomy 2018 History of dental surgery History of placement of ear tubes History of tonsillectomy and adenoidectomy Family History Other CAD (coronary artery disease) Diabetes Social History Smoking and tobacco status: never smoked Alcohol intake: never Lives independently: Yes Housing: House Vitals/I&O/Wt Last Vital Signs Temp 98.0 F 09/19/20 18:20 Pulse 118 H 09/19/20 18:20 Resp 28 H 09/19/20 18:20 BP 160/81 09/19/20 18:20 Pulse Ox 80 L 09/19/20 18:20 Weight last 48 hrs Weight 226.796 kg Physical Exam Narrative: EXAM NARRATIVE: Young female, morbidly obese, sitting comfortably in her bed saturating well on 4 L nasal cannula Caregiver at the bedside S1, S2 with signs of heart failure, bilateral lower extremity edema, Diminished bilateral breath sounds with rhonchi at the bases No active respiratory distress Abdomen distended, central obesity, no signs of guarding or rigidity however tenderness noticed in mid epigastric region on deep palpation Bowel sounds hyperactive Skin rash noticed right flank area and medial side of thighs however no signs of cellulitis Awake alert oriented x3 GCS 15 no active neurological signs of stroke She does appear anxious, pressured speech noted Data : 09/19/20 21:50 09/19/20 21:08 A&P Assessment and plan (1) Acute respiratory failure with hypoxia: Status: Acute (2) Diarrhea: Status: Acute (3) Congestive heart failure: Status: Acute Qualifiers: Heart failure chronicity: acute Heart failure type: unspecified Qualified Code(s): I50.9 - Heart failure, unspecified Additional A&P Information Acute hypoxic respiratory failure High risk for PE, D-dimer high, rule out Covid pneumonia antigen negative, requested PCR Clinical signs of congestive heart failure with high BNP start her on Bumex and keep her on 4L nasal cannula for now she has no active respite distress or chest pain, Requested inflammatory markers Start heparin drip Not a suitable candidate to obtain CTA chest or CT abdomen Rule out C. difficile Consistent carb diet Moderate dose sliding scale Isolation precautions Home O2 evaluation Full code DVT prophylaxis not indicated due to therapeutic dose of heparin Attestations Medical Necessity Statement*: Anticipating stay in the hospital cross more than 2 midnights for evaluation of acute hypoxic respiratory failure, rule out Covid pneumonia Time Spent in Patient Care: (>than 50% of time spent in counselling and/or direct pt care on unit) . 30mins Coding Level of Care Code Acute Para Machine Operator for Luis Carlos Lee Diagnoses Acute respiratory failure with hypoxia J96.01 Diarrhea R19.7 Congestive heart failure I50.9 Heart failure chronicity: acute Heart failure type: unspecified
[2020-09-19 22:33] LABS: INR 1.16 (0.8-1.2)
[2020-09-19 22:36] LABS: D Dimer 1.56 ug/mIFEU (0-0.59)
[2020-09-20] VITALS (10 sets, daily range): BP systolic 123–163; BP diastolic 72–94; PULSE 65–97; RESP 16–20; TEMP 36.4–36.8; O2SAT 90–98
--- NOTE | 2020-09-20 00:38 | ED_ITS ---
HPI - SOB/Dyspnea General: Chief Complaint: Shortness of Breath/Dyspnea Stated Complaint: SOB, FATIGUE, COUGH, LOSS SMELL/TASTE Time Seen by Provider: 09/19/20 18:32 Source: patient and other (caregiver) Mode of arrival: ambulatory Limitations: no limitations History of Present Illness: HPI Narrative: Patient is a 35-year-old female with a history of morbid obesity and who presents to the emergency department with several day history of shortness of breath, cough, loss of taste and smell, and sore throat from coughing. She is coughing up thick greenish sputum. She has no history of COPD. She denies any fever. She denies any sick contacts. MD elicited complaint: shortness of breath and cough Onset (ago): day(s) Timing: constant and progressively worsening Severity: moderate Exacerbating factors: nothing Relieving factors: nothing Associated symptoms: Reports abdominal pain, cough and nausea; Deny chest congestion, chest pain, diaphoresis, dizziness, extremity pain, fever(s), hemoptysis, lightheadedness, myalgias, orthopnea, palpitations, paresthesias, polydipsia, polyuria, rash, sense of impending doom, syncope or vomiting Treatment prior to arrival: none Review of Systems General: Reports: 10 or more systems reviewed and unremarkable except in HPI and below Const: Denies: fever(s) or diaphoresis Card: Denies: chest pain, palpitations, lightheadedness, syncope or orthopnea Resp: Denies: hemoptysis or chest congestion GI: Reports: abdominal pain and nausea; Denies: vomiting Musc: Denies: extremity pain Neuro: Denies: dizziness Endo: Denies: polyuria or polydipsia PFS ED PFSH: Medical History Cellulitis Depression Hypothyroidism Leg pain Morbid obesity Osteoarthritis Family History Other CAD (coronary artery disease) Diabetes Social History Smoking and tobacco status: never smoked Alcohol intake: never Lives independently: Yes Housing: House Physical Exam Const: COMMON NORMALS: no acute distress, patient oriented x3, no limitations, alert and well nourished NUTRITIONAL APPEARANCE: obese morbidly obese HENMT: COMMON NORMALS: normocephalic, atraumatic and moist oral mucous membranes HEAD & SCALP: normocephalic and atraumatic Neck/C-Spine: COMMON NORMALS: no meningeal signs and no JVD Resp: COMMON NORMALS: normal respiratory effort, No retractions, No use of accessory muscles and percussion normal AUSCULTATION: rales and diminished lung sounds PERCUSSION: percussion normal Cardio: COMMON NORMALS: no JVD, regular rate, regular rhythm, S1 normal heart sound present, S2 normal heart sound present, No gallops present (Cardio), No clicks present (Cardio), No murmurs present (Cardio), No rub (Cardio) and Peripheral pulses 2+ throughout RATE: regular rate RHYTHM: regular rhythm HEART SOUNDS: S1 normal heart sound present and S2 normal heart sound present PERIPHERAL PULSES: Peripheral pulses 2+ throughout GI: COMMON NORMALS: Normal to inspection, nondistended, normoactive bowel sounds present, Soft to palpation, non-tender, No hepatosplenomegaly present, no masses and no bruits PALPATION: Yes Soft to palpation and Yes No hepatosplenomegaly present Extremity: COMMON NORMALS: normal to inspection, full ROM, capillary refill normal, no calf tenderness and no pedal edema Neuro: COMMON NORMALS: patient oriented x3 SENSORIUM/ORIENTATION: Yes alert MENINGEAL SIGNS: Yes no meningeal signs Course Reevaluation(s): Reevaluation #1: Discussed her lab and imaging findings with her as well as my conversation with the hospitalist. Advised that she appears to be in congestive heart failure. Since she is requiring oxygen she will be admitted to the hospital for further evaluation and management. She voiced understanding and is in agreement with the plan. Time: 22:10 Consultations: Consultation #1: Discussed the patient with Dr. Chowdhury, hospitalist and he kindly accepted the patient to his service. Time: 22:05 Vital Signs: Vital signs: Vital Signs Temperature 98 F 09/20/20 00:25 Pulse Rate 97 09/20/20 00:25 Respiratory Rate 18 09/20/20 00:25 Blood Pressure 163/94 09/20/20 00:25 Pulse Oximetry 96 09/20/20 00:25 MDM - SOB/Dyspnea MDM Narrative: Medical decision making narrative: 35-year-old female who presents to the emergency department with progressively worsening shortness of breath. Evaluation in the emergency department is consistent with congestive heart failure. She is requiring oxygen and is admitted to the hospital for further evaluation and management. Medical Records: Attestation: I reviewed the patient's medical records. Lab Data: Attestation: I reviewed the patient's lab results. Labs: Lab Results 09/19/20 09/19/20 09/19/20 Range/Units 19:49 19:52 19:52 WBC Cancelled Corrected WBC Cancelled RBC Cancelled Hgb Cancelled Hct Cancelled MCV Cancelled MCH Cancelled MCHC Cancelled RDW Cancelled Plt Count Cancelled MPV Cancelled Gran % Cancelled Neut % (Auto) Cancelled Lymph % (Auto) Cancelled Cherry % (Auto) Cancelled Eos % (Auto) Cancelled Baso % (Auto) Cancelled Neut # (Auto) Cancelled Lymph # (Auto) Cancelled Cherry # (Auto) Cancelled Eos # (Auto) Cancelled Baso # (Auto) Cancelled Absolute Gran (aut o) Cancelled Nucleated RBC % (a uto) Cancelled Nucleated RBCs # Cancelled PT (12.1-14.9) SECO NDS INR (0.8-1.2) D-Dimer (0-0.59) ug/mIFE U Specimen Type Arterial Sample Site Radial, right ABG pH 7.42 (7.35-7.45) ABG pCO2 52.5 H (35-45) mmHg ABG pO2 85.8 (80.0-100.0) mmH g ABG HCO3 33.6 H (22-26) mmol/L ABG Base Excess 7.4 H (-2.0-2.0) mmol/ L Tyrese Test Pos Hematocrit 41.7 (37-47) % O2 Delivery Device Nc O2 Liters/Min 4.0 % Psychiatric Therapist ID Harkr Sodium Cancelled Potassium Cancelled Chloride Cancelled Carbon Dioxide Cancelled Anion Gap Cancelled BUN Cancelled Creatinine Cancelled GFR Calculation Cancelled Glucose Cancelled Calculated Osmolal ity Cancelled Lactic Acid (0.5-2.2) mmol/L Calcium Cancelled Ferritin Cancelled Total Bilirubin Cancelled AST Cancelled ALT Cancelled Alkaline Phosphata se Cancelled C-Reactive Protein Cancelled NT-Pro-B Natriuret Pep Cancelled Total Protein Cancelled Albumin Cancelled Globulin Cancelled Procalcitonin Cancelled SARS-CoV-2 Ag (Rap id) (Negative) 09/19/20 09/19/20 09/19/20 Range/Units 20:13 21:08 21:08 WBC Corrected WBC RBC Hgb Hct MCV MCH MCHC RDW Plt Count MPV Gran % Neut % (Auto) Lymph % (Auto) Cherry % (Auto) Eos % (Auto) Baso % (Auto) Neut # (Auto) Lymph # (Auto) Cherry # (Auto) Eos # (Auto) Baso # (Auto) Absolute Gran (aut o) Nucleated RBC % (a uto) Nucleated RBCs # PT 15.10 H (12.1-14.9) SECO NDS INR 1.16 (0.8-1.2) D-Dimer 1.56 H (0-0.59) ug/mIFE U Specimen Type Sample Site ABG pH (7.35-7.45) ABG pCO2 (35-45) mmHg ABG pO2 (80.0-100.0) mmH g ABG HCO3 (22-26) mmol/L ABG Base Excess (-2.0-2.0) mmol/ L Tyrese Test Hematocrit (37-47) % O2 Delivery Device O2 Liters/Min % Psychiatric Therapist ID Sodium Potassium Chloride Carbon Dioxide Anion Gap BUN Creatinine GFR Calculation Glucose Calculated Osmolal ity Lactic Acid 0.6 (0.5-2.2) mmol/L Calcium Ferritin Total Bilirubin AST ALT Alkaline Phosphata se C-Reactive Protein NT-Pro-B Natriuret Pep Total Protein Albumin Globulin Procalcitonin SARS-CoV-2 Ag (Rap id) Negative (Negative) 09/19/20 09/19/20 09/19/20 Range/Units 21:08 21:08 21:50 WBC Cancelled 15.9 H Corrected WBC Cancelled RBC Cancelled 4.49 Hgb Cancelled 13.0 Hct Cancelled 43.1 MCV Cancelled 96.0 MCH Cancelled 29.0 MCHC Cancelled 30.2 RDW Cancelled 15.3 H Plt Count Cancelled 315 MPV Cancelled 10.6 H Gran % Cancelled Neut % (Auto) Cancelled 74.1 Lymph % (Auto) Cancelled 17.9 Cherry % (Auto) Cancelled 5.8 Eos % (Auto) Cancelled 1.3 Baso % (Auto) Cancelled 0.5 Neut # (Auto) Cancelled 11.78 H Lymph # (Auto) Cancelled 2.9 Cherry # (Auto) Cancelled 0.9 Eos # (Auto) Cancelled 0.2 Baso # (Auto) Cancelled 0.1 Absolute Gran (aut o) Cancelled Nucleated RBC % (a uto) Cancelled 0.2 Nucleated RBCs # Cancelled 0.0 PT (12.1-14.9) SECO NDS INR (0.8-1.2) D-Dimer (0-0.59) ug/mIFE U Specimen Type Sample Site ABG pH (7.35-7.45) ABG pCO2 (35-45) mmHg ABG pO2 (80.0-100.0) mmH g ABG HCO3 (22-26) mmol/L ABG Base Excess (-2.0-2.0) mmol/ L Tyrese Test Hematocrit (37-47) % O2 Delivery Device O2 Liters/Min % Psychiatric Therapist ID Sodium 137 Potassium 4.6 Chloride 96 L Carbon Dioxide 28 Anion Gap 17.6 BUN 11 Creatinine 0.8 GFR Calculation 81.6 L Glucose 92 Calculated Osmolal ity 283 L Lactic Acid (0.5-2.2) mmol/L Calcium 8.7 Ferritin 28 Total Bilirubin 0.3 AST 23 ALT 16 Alkaline Phosphata se 262 H C-Reactive Protein 141.6 H NT-Pro-B Natriuret Pep 1118 H Total Protein 7.2 Albumin 3.1 L Globulin 4.1 Procalcitonin 0.06 SARS-CoV-2 Ag (Rap id) (Negative) Imaging Data^: CXR: Attestation: I personally reviewed and interpreted this imaging study as follows: Radiologist's impression: [address] [id number] ReportSigned Patient: Jean-Pierre Vega #: [id number]: 1985Acct#:[id number]/Sex: 35 / FADM Date: 09/19/20Loc: ERRoom/Bed:Attending Dr: Ordering Provider/Ordering MD: Jazmine Munson MD, [facility] Date of Service: 09/19/20 Procedure(s): XR chest 1V portable [id number] Accession Number(s): [id number] Report Number: [id number] PROCEDURE INFORMATION: Exam: XR Chest Exam date and time: 09/19/2020 6:50 PM Age: 35 years old Clinical indication: Cough; Additional info: SOB TECHNIQUE: Imaging protocol: XR of the chest. Views: 1 view. COMPARISON: CT abdomen pelvis w con* [id number] 02/16/2020 5:48 PM FINDINGS: Lungs: Decreased lung volumes. No focal airspace consolidation. There is mild prominence of central pulmonary vasculature. Pleural spaces: Unremarkable. No pleural effusion. No pneumothorax. Heart/Mediastinum: Mild cardiac enlargement. Bones/joints: Unremarkable. XR/XR chest 1V portable [id number] IMPRESSION: Mild central pulmonary vascular congestion changes. Dictated By:Nell Rabago By:Nell Rabago Date/Time:09/19/201939DD/ 37 Discharge Plan Discharge Patient Disposition: Admitted As Inpatient Admit Provider: Moon Chowdhury Clinical Impression: Congestive heart failure, Morbid obesity Condition: Stable Coding Level of Care Code ED Router Setter for Luis Carlos Lee
[2020-09-20] MEDS: heparin drip 25,000 UNIT/500 ML PREMIX 36 UNIT IV (02:48)
[2020-09-20] MEDS: heparin 5,000 unit/mL INJ 1 mL IV ×2 (02:48→11:59)
[2020-09-20 06:27] LABS: Glucose Point of Care 99 mg/dL (70-110)
[2020-09-20] MEDS: potassium chloride ER 20 mEq Tablet PO (08:50)
[2020-09-20] MEDS: buPROPion XL (24 HR) 300 mg Tablet PO (08:50)
[2020-09-20] MEDS: sertraline 50 mg Tablet 150 MG PO (08:50)
[2020-09-20] MEDS: bumetanide 1 mg Tablet PO (08:50)
[2020-09-20] MEDS: levothyroxine 100 mcg Tablet PO (08:50)
[2020-09-20 10:40] LABS: Basophils # 0.1 10^3/uL (0.0-0.1); Basophils % 0.7 %; Eosinophils # 0.3 10^3/uL (0.0-0.8); Eosinophils % 2.2 %; Hematocrit 46.6 % (37.0-47.0); Lymphocytes % 24.4 %; Mean Corpuscular Hemoglobin 28.8 pg (28.0-34.0); Mean Corpuscular Volume 95.9 fL (81-99); Mean Platelet Volume 10.7 fL (7.4-10.4); Monocytes # 0.6 10^3/uL (0.2-0.9); Neutrophils # 8.11 10^3/uL (1.8-7.7); Neutrophils % 67.2 %; Nucleated Red Blood Cells % 0 %; Platelet Count 318 10^3/cmm (130-400); Red Blood Count 4.86 10^6/uL (4.1-5.3); Red Cell Distribution Width 15.5 % (12.1-15.1); White Blood Count 12.1 10^3/uL (4.0-10.0)
[2020-09-20 11:03] LABS: Alanine Aminotransferase 21 U/L (0-33); Albumin Level 3.7 g/dL (3.5-5.2); Alkaline Phosphatase 275 IU/L (35-105); Anion Gap 15.7 (5-19); Aspartate Amino Transferase 31 U/L (0-32); Blood Urea Nitrogen 14 mg/dL (6-20); C Reactive Protein 151.4 mg/L (0.0-4.9); Calcium 9.1 mg/dL (8.5-10.5); Carbon Dioxide 31 mmol/L (22-29); Chloride 97 mmol/L (98-107); Creatine Phosphokinase 50 U/L (26-192); Ferritin 19 ng/mL (15-150); Glomerular Filtration Rate 71.3 mL/min (90-130); Glucose 136 mg/dL (65-115); Lactate Dehydrogenase 244 U/L (135-214); Osmolality Calculated 291 mOsm/kg (285-295); Potassium 4.7 mmol/L (3.5-5.1); Sodium 139 mmol/L (136-145); Total Bilirubin 0.3 mg/dL (0.15-1.2); Total Protein 7.7 g/dL (6.6-8.7)
[2020-09-20 11:04] LABS: Partial Thromboplastin Time 32.5 SECONDS (23.9-36.7)
[2020-09-20 11:30] LABS: Glucose Point of Care 100 mg/dL (70-110)
[2020-09-20] MEDS: heparin drip 25,000 UNIT/500 ML PREMIX 39 UNIT IV (16:18)
--- NOTE | 2020-09-20 16:24 | P.PN_ITS ---
Subjective Subjective: Interval history: Paitent was noting resp disterss. Vitals/I&O/Wt Last Vital Signs Temp 97.6 F 09/20/20 19:45 Pulse 88 09/20/20 22:11 Resp 18 09/20/20 22:11 BP 144/81 09/20/20 19:45 Pulse Ox 91 09/20/20 22:11 09/20/20 09/20/20 09/21/20 14:59 22:59 06:59 Intake Total 1231.2 / 1231.2 887.7 / 2118.9 Output Total 300 / 300 200 / 500 Balance 931.2 / 931.2 687.7 / 1618.9 Weight last 48 hrs Weight 226.796 kg Physical Exam Narrative: EXAM NARRATIVE: General : Alert, awake, morbidly obese HEENT : Unremarkable CVS: RRR Chest: CTABL Abd; Soft , NT, ND Ext : edema Data : 09/20/20 10:34 09/20/20 10:20 Micro: Microbiology 09/20/20 12:14 C.difficile Toxin B Gene (PCR) - Final Stool - Stool Aspirate 09/19/20 22:42 Gram Stain - Final Sputum - Expectorated Sputum A&P Assessment and plan (1) Acute respiratory failure with hypoxia: Suppplemental o2 Suspected PE On heparin drip Status: Acute (2) Congestive heart failure: Status: Acute Qualifiers: Heart failure chronicity: acute Heart failure type: unspecified Qualified Code(s): I50.9 - Heart failure, unspecified (3) Osteoarthritis: Status: Acute (4) Leg pain: Status: Acute Attestations Medical Necessity Statement*: Will require further hospitalization for management of respiratory failure Time Spent in Patient Care: Greater than 35 minutes (>than 50% of time spent in counselling and/or direct pt care on unit) . Coding Level of Care Code Acute Teaching Music Lessons for Luis Carlos Lee Diagnoses Acute respiratory failure with hypoxia J96.01 Congestive heart failure I50.9 Heart failure chronicity: acute Heart failure type: unspecified Osteoarthritis M19.90 Leg pain M79.606
[2020-09-20 16:54] LABS: Glucose Point of Care 114 mg/dL (70-110)
[2020-09-20 20:12] LABS: Glucose Point of Care 128 mg/dL (70-110)
[2020-09-20] MEDS: heparin 5,000 unit/mL INJ 1 mL 5000 UNIT SUBCUT (20:15)
--- NOTE | 2020-09-20 23:20 | P.HP_ITS ---
Providers/Chief Complaint Admitting Physician: Moon Chowdhury MD Primary Care Provider: RANDY Stevens Chief Complaint: SOB, FATIGUE, COUGH, LOSS SMELL/TASTE History of Present Illness Deann Vega is a 35 year old female with a past medical history of spincter of oddi dysfunction who was recently dx with covid -19 presented to ER with dizziness and generalized weakness. Presented to ER for eval. Upon arrival was noted to have ANC of 990, and thrombocytopenia. Was admitted for observation Review of Systems General: Reports: 10 or more systems reviewed and unremarkable except in HPI and below Medications/Allergies Home Medications Medication Instructions Recorded Confirmed Last Taken Type bupropion HCl 300 mg PO DAILY@02/16/20 09/19/20 09/19/20 History cetirizine 10 mg PO DAILY@02/16/20 09/19/20 09/19/20 History cyclobenzaprine 10 mg PO TID PRN 02/16/20 09/19/20 09/09/20 History epinephrine See Rx Instructions .ROUTE .COMPLEX 02/16/20 09/19/20 Unknown History famotidine 20 mg PO DAILY@02/16/20 09/19/20 09/19/20 History fluticasone propionate 1 spray INTRANASAL DAILY@02/16/20 09/19/20 09/19/20 History hydroxyzine HCl 25 mg PO DAILY PRN 02/16/20 09/19/20 Unknown History levothyroxine 100 mcg PO DAILY@02/16/20 09/19/20 09/19/20 History norgestimate-ethinyl estradiol 1 tab PO DAILY@02/16/20 09/19/20 09/19/20 History [Tri-Linyah] potassium chloride 20 meq PO DAILY@02/16/20 09/19/20 09/19/20 History sertraline 150 mg PO DAILY@02/16/20 09/19/20 09/19/20 History Icy Hot Extra Strength See Rx Instructions .ROUTE .COMPLEX 05/12/20 09/19/20 Unknown History calcium carbonate-vitamin D3 1 tab PO DAILY@08 05/12/20 09/19/20 09/19/20 Histor y [Oyster Shell Calcium-Vit D3] diphenoxylate-atropine [Lomotil] 1 tab PO DAILY PRN #5 tab 05/12/20 09/19/20 09/18/20 Rx furosemide [Lasix] 80 mg PO DAILY@08 05/12/20 09/19/20 09/19/20 History gabapentin 600 mg PO TID@08,14,05/12/20 09/19/20 09/19/20 History ondansetron 4 mg PO Q6H PRN #14 tab 05/12/20 09/19/20 09/18/20 Rx cholecalciferol (vitamin D3) 25 mcg PO DAILY@07/24/20 09/19/20 09/19/20 History [Vitamin D3] diphenhydramine HCl [Banophen] 25 mg PO Q6H PRN 07/24/20 09/19/20 Unknown History capsaicin-peppermint oil-anise See Rx Instructions .ROUTE .COMPLEX 09/19/20 09/19/20 09/19/20 History celecoxib [Celebrex] 200 mg PO BID@0800,199909/19/20 09/19/20 09/19/20 History Allergies Allergy/AdvReac Type Severity Reaction Status Date / Time acetaminophen [From Tylenol] Allergy ALGY-Rash Verified 08/30/20 11:17 aspirin Allergy ALGY-Rash Verified 08/30/20 11:17 azithromycin Allergy ALGY-Rash Verified 08/30/20 11:17 haloperidol [From Haldol] Allergy ADR-Seizure Verified 08/30/20 11:17 tramadol Allergy ADR-Seizure Verified 08/30/20 11:17 ibuprofen AdvReac Mild Unknown Verified 08/30/20 11:17 PFSH Acute PFSH: Medical History Cellulitis Depression Hypothyroidism Leg pain Morbid obesity Osteoarthritis Surgical History History of cholecystectomy 2017-lap History of colonoscopy with polypectomy 2018 History of dental surgery History of placement of ear tubes History of tonsillectomy and adenoidectomy Family History Other CAD (coronary artery disease) Diabetes Social History Smoking and tobacco status: never smoked Alcohol intake: never Lives independently: Yes Housing: House Vitals/I&O/Wt Last Vital Signs Temp 97.6 F 09/20/20 19:45 Pulse 88 09/20/20 22:11 Resp 18 09/20/20 22:11 BP 144/81 09/20/20 19:45 Pulse Ox 91 09/20/20 22:11 09/20/20 09/20/20 09/21/20 14:59 22:59 06:59 Intake Total 1231.2 / 1231.2 887.7 / 2118.9 Output Total 300 / 300 200 / 500 Balance 931.2 / 931.2 687.7 / 1618.9 Weight last 48 hrs Weight 226.796 kg Physical Exam Narrative: EXAM NARRATIVE: gernal : alert, awake oriented x 3 HEENT; Grossly unremakrable CVS: RRR Chest : CTABL ABD: Soft, NT,ND Ext : No edema Data : 09/20/20 10:34 09/20/20 10:20 Micro: Microbiology 09/20/20 12:14 C.difficile Toxin B Gene (PCR) - Final Stool - Stool Aspirate 09/19/20 22:42 Gram Stain - Final Sputum - Expectorated Sputum Coding Level of Care Code Acute Delicatessen Manager for Dahliag Rosa
[2020-09-21] VITALS (9 sets, daily range): BP systolic 130–151; BP diastolic 61–91; PULSE 77–91; RESP 16–20; TEMP 36.3–36.8; O2SAT 88–97
[2020-09-21] MEDS: heparin 5,000 unit/mL INJ 1 mL 5000 UNIT SUBCUT ×3 (03:17→17:33)
[2020-09-21] MEDS: buPROPion XL (24 HR) 300 mg Tablet PO (09:19)
[2020-09-21] MEDS: bumetanide 1 mg Tablet PO (09:19)
[2020-09-21] MEDS: sertraline 50 mg Tablet 150 MG PO (09:19)
[2020-09-21] MEDS: levothyroxine 100 mcg Tablet PO (09:19)
[2020-09-21] MEDS: potassium chloride ER 20 mEq Tablet PO (09:20)
--- NOTE | 2020-09-21 10:41 | PC.NURSE ---
This nurse called for a [facility] bed for the pt. reference number is [id number].
[2020-09-21 11:19] LABS: Glucose Point of Care 106 mg/dL (70-110)
--- NOTE | 2020-09-21 14:45 | P.PN_ITS ---
Subjective Subjective: Interval history: 35-year-old female with a past medical history significant for morbid obesity, osteoarthritis, depression, hypothyroidism,Who presented to the hospital with respiratory distress. Apparently this has been progressively worsening for over week prior to arrival. This was associated with increasing b/l lower extremity edema and orthopnea. Denied chest pain. Upon arrival she was noted to have oxygen saturations between 60 to 70%. She was placed on 4 to 5 L of O2 via nasal cannula.Laboratory workup on arrival showedA WBC of 15.9, hemoglobin of 13.0, hematocrit of 43.1 and a platelet count of 315. Sodium 137, potassium 4.6, chloride 96, bicarb 28, BUN 11 and creatinine of 0.8. Isolated alkaline phosphatase elevation of 262. C reactive protein 141. ProBNP of 1118. Procalcitonin of 0.06. Arterial blood gases showed a pH of 7.42, pCO2 of 52.5, PO2 of 85.8 and a bicarb of 33.6. COVID-19 antigen was negative. PCR was done obtain however results were pending.D-dimer was elevated of 1.16. Not able to perform CT angio due to patients weight and size. Was empirically started on heparin drip. Chest x-ray performed showed mild central pulmonary vascular congestion.Patient was started on Bumex 1 mg p.o. daily. In addition to heparin drip as mentioned. Her O2 requirements improved. Noted decreased urine output. Bumex was then discontinued and changed to lasix 40 mg IV BID. ECHO was ordered however pending. On 09/[address] patient refused heparin. A CT chest PE protocol and b/l venous duplex were ordered. Medications: Reviewed: Yes Vitals/I&O/Wt Last Vital Signs Temp 97.8 F 09/21/20 12:00 Pulse 82 09/21/20 12:00 Resp 18 09/21/20 12:00 BP 138/85 09/21/20 12:00 Pulse Ox 91 09/21/20 12:00 09/20/20 09/21/20 09/21/20 22:59 06:59 14:59 Intake Total 887.7 / 2118.9 200 / 2318.9 480 / 480 Output Total 200 / 500 Balance 687.7 / 1618.9 200 / 1818.9 480 / 480 Weight last 48 hrs Weight 226.796 kg Physical Exam Narrative: EXAM NARRATIVE: General :Awake, alert and oriented x3 , morbidly obese HEENT: Grossly unremarkable CVS: RRR Chest: CTABL - difficult to assess due to body habitus Abd: Soft, NT, ND Ext : Bilateral LE edema , FROM x 4. Data : 09/20/20 10:34 09/20/20 10:20 Micro: Microbiology 09/19/20 22:42 Gram Stain - Final Sputum - Expectorated Sputum Sputum Culture - Preliminary 09/20/20 12:14 C.difficile Toxin B Gene (PCR) - Final Stool - Stool Aspirate A&P Assessment and plan (1) Acute respiratory failure with hypoxia: Status: Acute (2) Morbid obesity: Status: Acute (3) Congestive heart failure: Status: Acute Qualifiers: Heart failure chronicity: acute Heart failure type: unspecified Qualified Code(s): I50.9 - Heart failure, unspecified Acute respiratory failure with hypoxia due to suspected HF exacerbation( unspecified type) Etiology likely multifactorial - probable obesity hypoventilation syndrome Supplemental 02 as needed Wean oxygen as tolerated Home 02 eval prior to discharge. Ph 7.42, PCO2 52.5, PO2 85.8, HCO3 33.6 on 4L via NC - on arrival Will likely need sleep study Covid-19 PCR pending, ag negative Suspected CHF exacerbation Unspecified type ECHO -pending D/C bumex Lasix 40 mg IV BID Replace K as needed Daily weight Low NA diet Elevated D-Dimer / LE pain Attempt CTA chest PE protocol Venous duplex bilaterally Refused heparin gtt IF positive will start eliquis 10 mg PO BID Hypothyroidism Levothyroxine 100 mcg PO daily Depression Zoloft 150 mg PO daily DVT ppx Heparin 5000 units q8hr - Given weight likely still subtherpaputic Attestations Medical Necessity Statement*: Require further hospitalization for management of respiratory failure, suspected new onset heart failure exacerbation on IV Lasix Time Spent in Patient Care: Greater than 35 minutes (>than 50% of time spent in counselling and/or direct pt care on unit) . Coding Level of Care Code Acute In Tube Conversion Technician for Luis Carlos Lee Diagnoses Acute respiratory failure with hypoxia J96.01 Morbid obesity E66.01 Congestive heart failure I50.9 Heart failure chronicity: acute Heart failure type: unspecified
[2020-09-21] MEDS: FUROsemide 10 mg/mL SDV 4mL 40 MG IVP (15:07)
[2020-09-21 17:19] LABS: Glucose Point of Care 97 mg/dL (70-110)
[2020-09-21] MEDS: ondansetron 2 mg/ML SDV 2 mL 4 MG IVP (17:33)
[2020-09-21 20:12] LABS: Glucose Point of Care 100 mg/dL (70-110)
[2020-09-21] MEDS: diphenhydrAMINE 50 mg Capsule PO (20:23)
[2020-09-22] MEDS: FUROsemide 10 mg/mL SDV 4mL 40 MG IVP ×2 (03:22→16:12)
[2020-09-22] MEDS: heparin 5,000 unit/mL INJ 1 mL 5000 UNIT SUBCUT ×3 (03:29→18:55)
[2020-09-22 04:00] VITALS: BP 137/81; PULSE 82; RESP 16; TEMP 36.6; O2SAT 92
[2020-09-22 06:38] LABS: Glucose Point of Care 125 mg/dL (70-110)
[2020-09-22 07:41] VITALS: BP 143/67; PULSE 86; RESP 17; TEMP 36.6; O2SAT 90
[2020-09-22 08:02] VITALS: PULSE 79; RESP 18; O2SAT 94
[2020-09-22] MEDS: sertraline 50 mg Tablet 150 MG PO (09:39)
[2020-09-22] MEDS: potassium chloride ER 20 mEq Tablet PO (09:40)
[2020-09-22] MEDS: levothyroxine 100 mcg Tablet PO (09:40)
[2020-09-22] MEDS: buPROPion XL (24 HR) 300 mg Tablet PO (09:40)
[2020-09-22 10:54] LABS: Glucose Point of Care 94 mg/dL (70-110)
[2020-09-22 11:50] VITALS: BP 130/70; PULSE 78; RESP 18; TEMP 36.5; O2SAT 95
--- NOTE | 2020-09-22 12:39 | P.PN_ITS ---
Subjective Subjective: Interval history: Patient noted decreased urine output. This is despite being on Lasix. Again difficult IV stick with inability to obtain lab workup today. Patient agreed to re-attempt. No fever chills overnight. Medications: Reviewed: Yes Vitals/I&O/Wt Last Vital Signs Temp 98 F 09/22/20 16:00 Pulse 85 09/22/20 16:00 Resp 18 09/22/20 16:00 BP 149/83 09/22/20 16:00 Pulse Ox 90 09/22/20 16:00 09/22/20 09/22/20 09/22/20 06:59 14:59 22:59 Intake Total 240 / 240 290 / 530 Output Total 300 / 800 1999 Balance -300 / -80 240 / 240 -1710 / -1470 Physical Exam Narrative: EXAM NARRATIVE: General :Awake, alert and oriented x3 , morbidly obese HEENT: Grossly unremarkable CVS: RRR Chest: CTABL - difficult to assess due to body habitus Abd: Soft, NT, ND Ext : Bilateral LE edema , FROM x 4. Urinary Catheter Management^: Browne: Cath Placed During This Visit: yes Reason for Continuing Indwelling Catheter: Acute Urinary Retention or Obstruction Urinary Catheter Date of Insertion: 09/22/20 Urinary Catheter Time of Insertion: 10:30 Data : 09/20/20 10:34 09/20/20 10:20 Micro: Microbiology 09/19/20 22:42 Gram Stain - Final Sputum - Expectorated Sputum Sputum Culture - Final Haemophilus Influenzae A&P Assessment and plan (1) Acute respiratory failure with hypoxia: Status: Acute (2) Morbid obesity: Status: Acute (3) Congestive heart failure: Status: Acute Qualifiers: Heart failure chronicity: acute Heart failure type: unspecified Qualified Code(s): I50.9 - Heart failure, unspecified Acute respiratory failure with hypoxia due to suspected HF exacerbation( unspecified type) plus pneumonia Etiology likely multifactorial - probable obesity hypoventilation syndrome Supplemental 02 as needed Wean oxygen as tolerated Home 02 eval prior to discharge. Ph 7.42, PCO2 52.5, PO2 85.8, HCO3 33.6 on 4L via NC - on arrival Will likely need sleep study Covid-19 PCR pending, ag negative H.Influenza Pneumonia Rocephin 2g IV daily Noted on sputum culture Suspected CHF exacerbation Unspecified type ECHO -pending D/C bumex Lasix 40 mg IV BID - Hold until labs draw Replace K as needed Daily weight Low NA diet Elevated D-Dimer / LE pain Attempt CTA chest PE protocol Venous duplex bilaterally Refused heparin gtt IF positive will start eliquis 10 mg PO BID Holding anticoagulation Urinary Retention Browne placed Monitor u/o Unclear etiology Outpatient follow up with urology Hypothyroidism Levothyroxine 100 mcg PO daily Depression Zoloft 150 mg PO daily DVT ppx Heparin 5000 units q8hr - Given weight likely still subtherpaputic increase to 7500 units Attestations Medical Necessity Statement*: Require further hospitalization for management of respiratory failure, H flu pneumonia, urinary retention Time Spent in Patient Care: Greater than 35 minutes (>than 50% of time spent in counselling and/or direct pt care on unit) . Coding Level of Care Code Acute Business Process Associate for Luis Carlos Lee Diagnoses Acute respiratory failure with hypoxia J96.01 Morbid obesity E66.01 Congestive heart failure I50.9 Heart failure chronicity: acute Heart failure type: unspecified
[2020-09-22 16:00] VITALS: BP 149/83; PULSE 85; RESP 18; TEMP 36.6; O2SAT 90
[2020-09-22] MEDS: cefTRIAXone 2,000 MG in sodium chloride 0.9% (plus) 50 ML 100 MG IV (16:11)
[2020-09-22 18:26] LABS: Glucose Point of Care 90 mg/dL (70-110)
[2020-09-22 20:00] VITALS: BP 131/63; PULSE 86; RESP 18; TEMP 36.4; O2SAT 91
[2020-09-22 20:43] LABS: Glucose Point of Care 113 mg/dL (70-110)
[2020-09-23] VITALS (8 sets, daily range): BP systolic 114–159; BP diastolic 76–91; PULSE 83–95; RESP 16–18; TEMP 36.3–37; O2SAT 84–97
[2020-09-23 01:18] LABS: Quest SARS-CoV-2 RNA NOT DETECTED (NOT DETECTED)
[2020-09-23] MEDS: heparin 5,000 unit/mL INJ 1 mL 5000 UNIT SUBCUT ×2 (04:21→12:25)
--- NOTE | 2020-09-23 06:00 | USCV_ITS ---
Silvia Deann Age: 35 Gender: F : 1985 Exam Date: 09/23/2020 15:06 Ordering Phys: Juany Agrawal MD Technologist: Antoinette Aguilera Exam Location: [facility] [place] Indication: BLE SWELLING HISTORY: Lower extremity swelling. PROCEDURES: Venous duplex imaging was performed in bilateral lower extremities. The following venous structures were evaluated: common femoral vein, profunda vein, proximal portion of the greater saphenous vein, superficial femoral vein, and the popliteal vein. In addition, the posterior tibial and peroneal trunk were evaluated. Serial compression, augmentation maneuvers, and spectral Doppler flow evaluation were performed. FINDINGS: Examination was technically limited due to body habitus. Normal 2-D Doppler and augmentation and compressibility throughout the lower extremity venous structures. Additional imaging through the proximal calf veins also reveals no thrombus. Limited evaluation of the greater saphenous vein is patent with no thrombus.. CONCLUSIONS No DVT bilateral lower extremities. Dr. Gail Nguyen DO (Electronically Signed) Final Date: 23 September 2020 07:56 S
[2020-09-23 06:16] LABS: Basophils # 0.1 10^3/uL (0.0-0.1); Basophils % 0.4 %; Eosinophils # 0.2 10^3/uL (0.0-0.8); Eosinophils % 1.8 %; Hematocrit 47.1 % (37.0-47.0); Hemoglobin 14.5 g/dL (11.5-15.3); Lymphocytes # 2.1 10^3/uL (0.8-4.8); Lymphocytes % 18.6 %; Mean Corpuscular HGB Conc 30.8 g/dL (30.0-36.0); Mean Corpuscular Hemoglobin 29.2 pg (28.0-34.0); Mean Corpuscular Volume 94.8 fL (81-99); Mean Platelet Volume 11.1 fL (7.4-10.4); Monocytes # 0.7 10^3/uL (0.2-0.9); Monocytes % 6.4 %; Neutrophils # 8.28 10^3/uL (1.8-7.7); Neutrophils % 72.5 %; Nucleated Red Blood Cells % 0 %; Platelet Count 310 10^3/cmm (130-400); Red Blood Count 4.97 10^6/uL (4.1-5.3); Red Cell Distribution Width 15.1 % (12.1-15.1); White Blood Count 11.4 10^3/uL (4.0-10.0)
[2020-09-23 06:33] LABS: Glucose Point of Care 93 mg/dL (70-110)
[2020-09-23 06:34] LABS: Blood Urea Nitrogen 13 mg/dL (6-20); Calcium 9.2 mg/dL (8.5-10.5); Carbon Dioxide 28 mmol/L (22-29); Chloride 95 mmol/L (98-107); Glomerular Filtration Rate 95.2 mL/min (90-130); Glucose 93 mg/dL (65-115); Osmolality Calculated 284 mOsm/kg (285-295); Sodium 137 mmol/L (136-145)
[2020-09-23 06:35] LABS: Anion Gap 17.6 (5-19); Potassium 3.6 mmol/L (3.5-5.1)
[2020-09-23] MEDS: sertraline 50 mg Tablet 150 MG PO (09:02)
[2020-09-23] MEDS: potassium chloride ER 20 mEq Tablet PO (09:02)
[2020-09-23] MEDS: levothyroxine 100 mcg Tablet PO (09:02)
[2020-09-23] MEDS: buPROPion XL (24 HR) 300 mg Tablet PO (09:02)
--- NOTE | 2020-09-23 13:29 | PM.DCS ---
Discharge Providers Date of Admission: 09/19/20 22:34 Date of Discharge: September 22, 2020 Attending Provider at Admission: Moon Chowdhury MD Attending Provider at Discharge: Juany Agrawal Primary Care Provider: RANDY Stevens Diagnoses at Discharge Discharge Diagnosis (1) Acute respiratory failure with hypoxia: Status: Acute (2) Morbid obesity: Status: Acute (3) Congestive heart failure: Status: Acute Qualifiers: Heart failure chronicity: acute Heart failure type: unspecified Qualified Code(s): I50.9 - Heart failure, unspecified Reason for Visit Reason for Visit: SOB, FATIGUE, COUGH, LOSS SMELL/TASTE Hospital Course Hospital Course 35-year-old female with a past medical history significant for morbid obesity, osteoarthritis, depression, hypothyroidism,Who presented to the hospital with respiratory distress. Apparently this has been progressively worsening for over week prior to arrival. This was associated with increasing b/l lower extremity edema and orthopnea. Denied chest pain. Upon arrival she was noted to have oxygen saturations between 60 to 70%. She was placed on 4 to 5 L of O2 via nasal cannula.Laboratory workup on arrival showedA WBC of 15.9, hemoglobin of 13.0, hematocrit of 43.1 and a platelet count of 315. Sodium 137, potassium 4.6, chloride 96, bicarb 28, BUN 11 and creatinine of 0.8. Isolated alkaline phosphatase elevation of 262. C reactive protein 141. ProBNP of 1118. Procalcitonin of 0.06. Arterial blood gases showed a pH of 7.42, pCO2 of 52.5, PO2 of 85.8 and a bicarb of 33.6. COVID-19 antigen was negative. PCR was done obtain however results were pending.D-dimer was elevated of 1.16. Not able to perform CT angio due to patients weight and size. Was empirically started on heparin drip. Chest x-ray performed showed mild central pulmonary vascular congestion.Patient was started on Bumex 1 mg p.o. daily. In addition to heparin drip as mentioned. Her O2 requirements improved. Noted decreased urine output. Bumex was then discontinued and changed to lasix 40 mg IV BID. ECHO was ordered however pending. Patient was noted to have a elevated D-dimer however could not rule out. She was initially started on heparin drip however on 09/[address] refused heparin[address] A CT chest PE protocol was attempted however due to patients body habitus this was not able to be performed. Venous duplex however was performed and found to be negative for any acute DVT. Patient was eventually noted to have Haemophilus influenza growing in sputum culture. Patient was started on Rocephin 2 g IV daily. Patients respiratory status improved. COVID-19 antigen and PCR were both negative. Patient remained afebrile. Was discharged on oral antibiotics. Patient was additionally noted to have suspectedHeart failure exacerbation. Again difficult to perform echocardiogram to body habitus. Outpatient ECHO was ordered. Patient was started on Lasix 40 mg IV b.i.d.. This was transitioned oral. Was noted to have urinary retention briefly however this resolved. Patient was advised to follow up with PCP soon after discharge. Recommended outpatient sleep study as well which she refused arrangements for. Advised to discuss with PCP and arrange. Physical Exam Narrative: EXAM NARRATIVE: General :Awake, alert and oriented x3 , morbidly obese HEENT: Grossly unremarkable CVS: RRR Chest: CTABL - difficult to assess due to body habitus Abd: Soft, NT, ND Ext : Bilateral LE edema - improved , FROM x 4. Urinary Catheter Management^: Browne: Cath Placed During This Visit: yes, but has since been removed by the nurse Reason for Continuing Indwelling Catheter: Decision to DC Catheter Urinary Catheter Date of Insertion: 09/22/20 Urinary Catheter Time of Insertion: 10:30 Date Urinary Catheter Removed: 09/23/20 Time Urinary Catheter Discontinued: 13:00 Discharge Data Data Completed and Pending: Completed Studies During Hospitalization Category Date Time Status XR chest 1V kvng ble [id number] Stat Exams 09/19/20 18:50 [place] [id number] Routin e Ultrasound 09/23/20 06:00 Completed Vitals: Last Vital Signs Temp 97.6 F 09/23/20 16:30 Pulse 95 09/23/20 16:30 Resp 18 09/23/20 16:30 BP 137/91 09/23/20 16:30 Pulse Ox 91 09/23/20 16:30 Discharge Plan Discharge Patient Disposition: Home Condition: Stable Prescriptions: New levofloxacin 750 mg tablet 750 mg PO DAILY 7 Days Qty: 7 RF: 0 Continued diphenhydramine HCl [Banophen] 25 mg Capsule 25 mg PO Q6H PRN (Reason: Allergy Symptoms) RF: 0 cholecalciferol (vitamin D3) [Vitamin D3] 25 mcg (1,000 unit) Capsule 25 mcg PO DAILY@08 RF: 0 cyclobenzaprine 10 mg Tablet 10 mg PO TID PRN (Reason: MUSCLE SPASMS) RF: 0 cetirizine 10 mg Tablet 10 mg PO DAILY@08 RF: 0 levothyroxine 100 mcg Tablet 100 mcg PO DAILY@08 RF: 0 famotidine 20 mg Tablet 20 mg PO DAILY@08 RF: 0 norgestimate-ethinyl estradiol [Tri-Linyah] 0.18/0.215/0.25 mg-35 mcg (28) Tablet 1 tab PO DAILY@08 RF: 0 hydroxyzine HCl 25 mg Tablet 25 mg PO DAILY PRN (Reason: Anxiety) RF: 0 fluticasone propionate 50 mcg/actuation Cuervo,Suspension 1 spray INTRANASAL DAILY@14 RF: 0 sertraline 50 mg Tablet 150 mg PO DAILY@08 RF: 0 bupropion HCl 300 mg Tablet Extended Release 24 Hr 300 mg PO DAILY@08 RF: 0 epinephrine 0.3 mg/0.3 mL Syringe See Rx Instructions .ROUTE .COMPLEX RF: 0 potassium chloride 20 mEq Tablet Extended Release 20 meq PO DAILY@08 RF: 0 gabapentin 600 mg Tablet 600 mg PO TID@08,14,20 RF: 0 Icy Hot Extra Strength See Rx Instructions .ROUTE .COMPLEX RF: 0 furosemide [Lasix] 80 mg Tablet 80 mg PO DAILY@08 RF: 0 calcium carbonate-vitamin D3 [Oyster Shell Calcium-Vit D3] 500 mg(1,250mg) -200 unit Tablet 1 tab PO DAILY@08 RF: 0 ondansetron 4 mg tablet,disintegrating 4 mg PO Q6H PRN (Reason: nausea and vomiting) Qty: 14 RF: 0 diphenoxylate-atropine [Lomotil] 2.5-0.025 mg tablet 1 tab PO DAILY PRN (Reason: diarrhea) Qty: 5 RF: 0 capsaicin-peppermint oil-anise See Rx Instructions .ROUTE .COMPLEX RF: 0 Celebrex 100 mg capsule 200 mg PO BID@0800,1999 RF: 0 Discharge Orders: Discharge Order (Routine); Ordered 09/23/20 Ordered By: Juany Agrawal Other Ambulatory Orders: DME: Oxygen (Order) Location: None Selected Ordered By: Juany Agrawal Referrals: Lauren,Fern, LEASING REPRESENTATIVE [Primary Care Provider] - 10/01/20 11:00 am Discharge Diet: Cardiac Discharge Activity: Increase activity as tolerated Patient Instructions: Levofloxacin (By mouth), Heart Failure (DC), CHF Stoplight, Opioid Safety, Using Oxygen at Home Activity Restrictions/Additional Instructions: SANDER WILL CALL WITH APPOINTMENT FOR CV ECHO Discharge Attestations Time Spent in Discharge Care*: greater than 30 min Specific Discharge Activities: educating patient, discussing with pcp/other providers, discussing with onsite case manager/social workers/dc planners, documenting/other paperwork and evaluating patient/reviewing data Status at Discharge: Cognitive status at discharge: cognitively intact, Behavioral status at discharge: cooperative, Functional status at discharge: independent ambulation Overall status at discharge: patient is progressing back to baseline Quality Metrics Clinical Quality Measures During this hospital stay, did patient experience: None Coding Level of Care Code Acute Chg FW DC note Diagnoses Acute respiratory failure with hypoxia J96.01 Morbid obesity E66.01 Congestive heart failure I50.9 Heart failure chronicity: acute Heart failure type: unspecified
[2020-09-23] MEDS: loperamide 2 mg Capsule 4 MG PO (15:47)
[2020-09-24 16:42] LABS: Glucose Point of Care 98 mg/dL (70-110)
== END 2020-09-23 16:35 | disposition home or self-care (01) | DRG 189 ==
LOC: ER 22:43 → MEDSURG 23:20
PROVIDERS: Admitting Provider Internal Medicine; Emergency Provider Family Medicine; PCP Nurse Practitioner Family; Visit Provider Hospitalist
DX: J96.01 Acute respiratory failure with hypoxia (principal); Z68.45 Body mass index [BMI] 70 or greater, adult; I50.9 Heart failure, unspecified; K58.0 Irritable bowel syndrome with diarrhea; R32 Unspecified urinary incontinence; F32.9 Major depressive disorder, single episode, unspecified; E03.9 Hypothyroidism, unspecified; E66.01 Morbid (severe) obesity due to excess calories; M19.90 Unspecified osteoarthritis, unspecified site; M79.662 Pain in left lower leg; M79.661 Pain in right lower leg; R33.9 Retention of urine, unspecified; B96.3 Hemophilus influenzae [H. influenzae] as the cause of diseases classified elsewhere
CPT/HCPCS: 36415; 36416; 36600; 51702; 71045; 80048; 80053; 82550; 82728; 82803; 82962; 83605; 83615; 83735; 83880; 84145; 85025; 85378; 85610; 85730; 86140; 87070; 87077; 87205; 87426; 87493; 87635; 93970; 96372; 99285; J0696; J1644; J1940; J2405; Q0163

== ENCOUNTER 2020-10-08 16:29 | Outpatient (CLI) | payer MEDICAID, SELFPAY | END 2020-10-08 16:30 | disposition home or self-care (01) | PROVIDERS: PCP Nurse Practitioner Family; Visit Provider Nurse Practitioner Family | DX: R19.7 Diarrhea, unspecified (principal) | CPT/HCPCS: 87493; 87506 ==

== ENCOUNTER 2020-10-22 14:11 | Outpatient (CLI) | payer MEDICAID, SELFPAY ==
--- NOTE | 2020-10-22 14:15 | USCV_ITS ---
Deann Vega Age: 35 Gender: F : 1985 Exam Date: 10/22/2020 14:31 Ordering Phys: Juany Agrawal MD Technologist: Exam Location: [facility] [place] Indication: CHEST BP: 168 / 70 HR: 91 Rhythm: Sinus Technical Quality: Suboptimal MEASUREMENTS (Male / Female) Normal Values 2D ECHO LV Ejection Fraction MOD 2C 66.6 % LV Ejection Fraction 2C AL 67.0 % DOPPLER TR Peak Velocity 105.0 cm/s TR Peak Gradient 4.4 mmHg FINDINGS Left Ventricle Normal left ventricular cavity size. No regional wall motion abnormalities. Normal left ventricular systolic function. Left ventricular ejection fraction is estimated at 65 %. Right Ventricle The right ventricle is normal in size and function. Right Atrium The right atrium is normal in size. Left Atrium The left atrium is normal in size. Mitral Valve No mitral valve stenosis. No mitral valve regurgitation. Aortic Valve Aortic valve not well visualized. Tricuspid Valve No tricuspid valve stenosis. Trace tricuspid valve regurgitation. Pulmonic Valve Pulmonic valve not well visualized. Pericardium Normal pericardium without effusion. Aorta Normal ascending aorta dimension. CONCLUSIONS 1-Normal left ventricular cavity size. No regional wall motion abnormalities. Normal left ventricular systolic function. Left ventricular ejection fraction is estimated at 65 %. 2-Aortic valve not well visualized. 3-There is no pericardial effusion. 4-There are no prior echocardiogram studies to compare. Moon Birmingham MD (Electronically Signed) Final Date: 22 October 2020 18:55 Amended: 23 October 2020 12:35 C
[2020-10-22] MEDS: perflutren protein-a microsphr 0.22 mg/mL SDV 3 mL IV (15:25)
== END 2020-10-22 14:12 | disposition home or self-care (01) ==
PROVIDERS: PCP Nurse Practitioner Family; Visit Provider Hospitalist
DX: I50.9 Heart failure, unspecified (principal); R60.9 Edema, unspecified
CPT/HCPCS: C8929; Q9956

== ENCOUNTER → 2020-12-16 16:10 | Outpatient (BNVA) | payer MEDICAID, SELFPAY | PROVIDERS: PCP Nurse Practitioner Family; Visit Provider Nurse Practitioner Women's Health | DX: Z01.419 Encounter for gynecological examination (general) (routine) without abnormal findings (principal); Z12.39 Encounter for other screening for malignant neoplasm of breast; E66.01 Morbid (severe) obesity due to excess calories; Z80.3 Family history of malignant neoplasm of breast | CPT/HCPCS: 88175 ==

== ENCOUNTER 2021-02-17 14:45 | Outpatient (CLI) | payer MEDICAID, SELFPAY ==
--- NOTE | 2021-02-17 15:30 | MM_ITS ---
WS: [id number] BILATERAL DIGITAL SCREENING MAMMOGRAPHY WITH CAD CLINICAL INFORMATION: Z12.39 - Encounter for other screening for malignant neop... HISTORY: Screening mammogram. No current complaints. COMPARISON: None. TECHNIQUE: Bilateral CC and MLO views. FINDINGS: Scattered fibroglandular densities bilaterally. A few tiny punctate calcifications. No suspicious foc al mass, asymmetry, calcifications, or architectural distortion. No evidence of malignancy. MM/[place] [id number] IMPRESSION: BI-RADS: 2-Benign FOLLOW UP: 1 Year Follow-up Recommend return to annual screening mammography.
== END 2021-02-17 14:46 | disposition home or self-care (01) ==
LOC: RADSHAW 14:54
PROVIDERS: PCP Nurse Practitioner Family; Visit Provider Nurse Practitioner Women's Health
DX: Z12.39 Encounter for other screening for malignant neoplasm of breast (principal)
CPT/HCPCS: 77067

== ENCOUNTER 2021-06-15 15:36 | Inpatient (IN) | payer MEDICAID, SELFPAY ==
[2021-06-15] VITALS (7 sets, daily range): BP systolic 101–130; BP diastolic 60–71; PULSE 14–113; RESP 16–100; TEMP 37.4; O2SAT 81–95; BMI 73.7
--- NOTE | 2021-06-15 16:29 | ED_ITS ---
Documented by User: Kalpesh Booth DO 06/16/21 07:45 HPI - General Adult General: Chief complaint: General Medical Stated complaint: N/V/D, abd pain Time Seen by Provider: 06/15/21 16:29 Source: patient Mode of arrival: ambulatory Limitations: no limitations History of Present Illness: 36-year-old female presents to the emergency room with complaining of bilateral flank pain. Pain radiated into her right pelvic area. She denies dysuria urgency or frequency. States she has pain in her back. She had 1 episodes of incontinence of the stool. She is not had any loss of function or sensation to the lower extremities. She initially told the nurse that Chic had bilateral pain but only told me about right-sided pain she also told the nurse that she could not urinate for the last several days but when I talked to her she said she had been urinating. Patient is a resident of a long term. There is no been no fever. Onset (ago): minute(s) Location: abdomen and pelvis Severity: moderate Quality: aching Pain Consistency: constant Relieving factors: none Exacerbating factors: none Associated symptoms: Reports decreased appetite, dyspnea, malaise, nausea and weakness; Deny chest pain, confusion, cough, diaphoresis, fevers/chills, headache(s), rash, palpitations, seizures, short of breath, syncope or vomiting Treatments prior to arrival: none Review of Systems Const: Reports: malaise; Denies: diaphoresis ENMT: Denies: throat pain, ear or mastoid pain, nasal discharge or nasal congestion Card: Denies: chest pain, palpitations or syncope Resp: Reports: dyspnea and non-productive cough GI: Reports: nausea; Denies: vomiting : Reports: flank pain; Denies: difficulty voiding, dysuria, urinary frequency or urinary urgency Skin/Breast: Denies: rash Neuro: Denies: headache(s) or confusion PFSH ED PFSH: Medical History Bipolar disorder Cellulitis Depression Fibromyalgia syndrome Hypothyroidism [facility] endocrinology--Dr Haider Leg pain Morbid obesity Multiple personality disorder No pertinent past medical history neghx: htn,dm,dvt/pe PCP: Kiesha Aguilar Nocturnal polyuria Osteoarthritis Surgical History H/O laparoscopy (~2010) treatment of ovarian cysts; performed in [place] History of cholecystectomy 2017-lap History of colonoscopy with polypectomy 2018 History of dental surgery History of placement of ear tubes History of tonsillectomy and adenoidectomy Family History Grandmother Breast cancer Maternal--dx age unknown Diabetes Maternal Hypertension Maternal Mother Breast cancer dx age 40's ; unknown if hormone receptive Thyroid disease Grandfather No problems noted. Sister Thyroid disease Denies family history of Colon cancer Ovarian cancer Hypercholesteremia Uterine cancer Stroke Social History Smoking and tobacco status: current every day smoker Physical Exam Const: GENERAL APPEARANCE: cooperative and comfortable NUTRITIONAL APPEARANCE: obese ORIENTATION/CONSCIOUSNESS: Yes awake, Yes oriented to person, Yes oriented to place and Yes oriented to time HENMT: COMMON NORMALS: normocephalic, atraumatic and hearing grossly normal bilaterally HEAD & SCALP: normocephalic and atraumatic Neck/C-Spine: COMMON NORMALS: no JVD Resp: COMMON NORMALS: normal respiratory effort, No retractions, No use of accessory muscles and clear to auscultation bilaterally AUSCULTATION: clear to auscultation bilaterally Cardio: COMMON NORMALS: no JVD, regular rhythm and No murmurs present (Cardio) RATE: tachycardic RHYTHM: regular rhythm GI: COMMON NORMALS: Soft to palpation and No hepatosplenomegaly present AUSCULTATION: Yes normoactive bowel sounds PALPATION: Yes Soft to palpation, No Tenderness to palpation present (GI), No Guarding due to palpation present (GI) and Yes No hepatosplenomegaly present Extremity: COMMON NORMALS: normal to inspection, capillary refill normal, no clubbing, cyanosis or edema, no calf tenderness and no pedal edema Neuro: SENSORIUM/ORIENTATION: Yes oriented to person, Yes oriented to place and Yes oriented to time Skin: COMMON NORMALS: no rashes or lesions noted GENERAL SKIN EXAM: no rashes or lesions noted Course Vital Signs: Vital signs: Vital Signs Temperature 98.5 F 06/18/21 11:02 Pulse Rate 78 06/18/21 11:02 Respiratory Rate 22 H 06/18/21 11:02 Blood Pressure 151/97 06/18/21 11:02 Pulse Oximetry 93 06/18/21 11:02 MDM - General Adult Medical Decision Making Care signed out to Dr. Hay at change of shift. See final notes for diagnosis and disposition. - Patient care handoff received from Dr. Booth pending completion of ED evaluation. Patient was personally seen and evaluated by me. - In summary patient appears to have urosepsis however there is additional illness with questionably new oxygen requirement. Apparently at some point in the past the patient has required oxygen however is not in the recent months to year. Patient additionally tachycardic and has evidence of right heart strain including elevated troponin and BNP. - Unfortunately, given patient's body habitus, there are significant limitations to imaging. There is no obvious abnormality on noncontrasted study of the abdomen and pelvis. Given the elevated BNP and troponin as well as tachycardia and oxygen requirement I do feel that patient requires a CTA even given this to rule out saddle pulmonary believes him as that would require intervention at outside facility. - Patient has received 30 cc/kg at least ideal body weight of fluid resuscitation in addition antibiotics and this will hopefully help mitigate any theoretical risk of contrast. - There is no evidence of central pulmonary realism however after discussion with admitting physician we will proceed with empiric therapy given high clinical suspicion and inability to optimally evaluate segmental or subsegmental pulmonary arteries. - I did discuss risks and benefits with patient and her typical staff. Additionally I contacted and spoke via telephone with the patient's guardian who was agreeable to treatment plan as we believe is indicated. I do believe that treatment is indicated despite the risk given the degree of uncertainty and patient's current clinical status. - Patient to be admitted to hospital for definitive management and further jessa ting is indicated. Hospitalist service contacted and agreed admit the patient. David Hay MD Emergency Medicine Medical Records I reviewed the patient's medical records. Lab Data I reviewed the patient's lab results. : 06/18/21 02:40 06/18/21 02:40 Radiology Impressions Chest X-Ray 06/15/21 17:03 IMPRESSION: No acute findings. Abdomen/Pelvis CT 06/15/21 17:26 IMPRESSION: No acute findings. Chest CTA 06/15/21 20:22 IMPRESSION: 1. Extremely limited evaluation for pulmonary embolism due to the limitations described in the body of the report. No large central pulmonary embolism is seen within the main pulmonary arteries, but examination is essentially nondiagnostic. 2. There is an elevated RV/LV ratio greater than 1 which is suggestive of right ventricular dysfunction. Venous Duplex 06/15/21 23:28 IMPRESSION: 1. No evidence of acute right lower extremity DVT. 2. No evidence of acute left lower extremity DVT. Laboratory Results WBC 22.2 10^3/uL (4.0-10.0) H 06/15/21 17:02 RBC 4.40 10^6/uL (4.1-5.3) 06/15/21 17:02 Hgb 13.5 g/dL (11.5-15.3) 06/15/21 17:02 Hct 42.9 % (37.0-47.0) 06/15/21 17:02 MCV 97.5 fl (81-99) 06/15/21 17:02 MCH 30.7 pg (28.0-34.0) 06/15/21 17:02 MCHC 31.5 g/dL (30.0-36.0) 06/15/21 17:02 RDW 16.7 % (12.1-15.1) H 06/15/21 17:02 Plt Count 266 10^3/cmm (130-400) 06/15/21 17:02 MPV 11.2 fL (7.4-10.4) H 06/15/21 17:02 Neut % (Auto) 79.8 % 06/15/21 17:02 Lymph % (Auto) 9.7 % 06/15/21 17:02 [place] % (Auto) 8.9 % 06/15/21 17:02 Eos % (Auto) 0.2 % 06/15/21 17:02 Baso % (Auto) 0.5 % 06/15/21 17:02 Neut # (Auto) 17.74 10^3/uL (1.8-7.7) H 06/15/21 17:02 Lymph # (Auto) 2.2 10^3/uL (0.8-4.8) 06/15/21 17:02 [place] # (Auto) 2.0 10^3/uL (0.2-0.9) H 06/15/21 17:02 Eos # (Auto) 0.0 10^3/uL (0.0-0.8) 06/15/21 17:02 Baso # (Auto) 0.1 10^3/uL (0.0-0.1) 06/15/21 17:02 Nucleated RBC % (auto) 0 % 06/15/21 17:02 Nucleated RBCs # 0.0 /100WBC 06/15/21 17:02 PT 15.50 SECONDS (12.1-14.9) H 06/15/21 18:06 INR 1.20 (0.8-1.2) 06/15/21 18:06 APTT 35.6 SECONDS (23.9-36.7) 06/15/21 18:06 D-Dimer 3.93 ug/mIFEU (0-0.59) H 06/15/21 18:06 Specimen Type Arterial 06/15/21 17:36 Sample Site Radial, left 06/15/21 17:36 ABG pH 7.44 (7.35-7.45) 06/15/21 17:36 ABG pCO2 36.1 mmHg (35-45) 06/15/21 17:36 ABG pO2 86.8 mmHg (80.0-100.0) 06/15/21 17:36 ABG HCO3 24.5 mmol/L (22-26) 06/15/21 17:36 ABG O2 Saturation 97.6 06/15/21 17:36 ABG Base Excess 0.6 mmol/L (-2.0-2.0) 06/15/21 17:36 Tyrese Test Pos 06/15/21 17:36 A-a O2 Gradient 16.3 mmHg (5-10) H 06/15/21 17:36 Hematocrit 42.1 % (37-47) 06/15/21 17:36 Hgb O2 Saturation 93.8 % (95-100) L 06/15/21 17:36 Carboxyhemoglobin 3.3 %THgb (0.4-20.1) 06/15/21 17:36 Methemoglobin 0.6 % (0.4-1.5) 06/15/21 17:36 Total Hemoglobin 13.7 g/dL (12-16) 06/15/21 17:36 Sodium 134.0 mmol/L (131-143) 06/15/21 17:36 Potassium 4.1 mmol/L (3.5-5.0) 06/15/21 17:36 Glucose 108.0 mg/dL (70-115) 06/15/21 17:36 Ionized Calcium 1.1 mmol/L (1.1-1.4) 06/15/21 17:36 O2 Delivery Device Nc 06/15/21 17:36 O2 Liters/Min 4.0 % 06/15/21 17:36 FiO2 36.0 % 06/15/21 17:36 Performance Solutions Specialist ID Ed 06/15/21 17:36 Sodium 133 mmol/L (136-145) L 06/15/21 17:02 Potassium 4.4 mmol/L (3.5-5.1) 06/15/21 17:02 Chloride 96 mmol/L (98-107) L 06/15/21 17:02 Carbon Dioxide 24 mmol/L (22-29) 06/15/21 17:02 Anion Gap 17.4 (5-19) 06/15/21 17:02 BUN 27 mg/dL (6-20) H 06/15/21 17:02 Creatinine 1.7 mg/dL (0.5-0.9) H 06/15/21 17:02 GFR Calculation 34.0 mL/min (90-130) L 06/15/21 17:02 Glucose 111 mg/dL (65-115) 06/15/21 17:02 Calculated Osmolality 282 mOsm/kg (285-295) L 06/15/21 17:02 Lactic Acid 0.7 mmol/L (0.5-2.2) 06/15/21 20:03 Calcium 8.9 mg/dL (8.5-10.5) 06/15/21 17:02 Total Bilirubin 0.5 mg/dL (0.15-1.2) 06/15/21 17:02 AST 22 U/L (0-32) 06/15/21 17:02 ALT 15 U/L (0-33) 06/15/21 17:02 Alkaline Phosphatase 280 IU/L (35-105) H 06/15/21 17:02 Troponin T Baseline 138 ng/L (0-10) H* 03/14/22 17:02 Troponin T 120 Minute 104.2 ng/L (0-10) H 06/15/21 20:03 Delta Troponin T -33.8 ABS# (0-10) L 06/15/21 20:03 NT-Pro-B Natriuret Pep 03247 pg/mL (0-125) H 06/15/21 17:02 Total Protein 7.2 g/dL (6.6-8.7) 06/15/21 17:02 Albumin 3.0 g/dL (3.5-5.2) L 06/15/21 17:02 Globulin 4.2 g/dL (1.3-4.6) 06/15/21 17:02 Lipase 26 U/L (13-60) 06/15/21 17:02 HCG, Qual Negative (Negative) 06/15/21 17:02 Urine Color Yellow (Yellow) 06/15/21 17:55 Urine Appearance Cloudy (CLEAR) 06/15/21 17:55 Urine pH 5 (5-7) 06/15/21 17:55 Ur Specific [place] 1.020 (1.005-1.030) 06/15/21 17:55 Urine Protein 2+ (Negative) H 06/15/21 17:55 Urine Glucose (UA) Norm (Normal) 06/15/21 17:55 Urine Ketones Negative (Negative) 06/15/21 17:55 Urine Blood 3+ (Negative) H 06/15/21 17:55 Urine Nitrate Negative (Negative) 06/15/21 17:55 Urine Bilirubin Neg (Negative) 06/15/21 17:55 Urine Urobilinogen 1 mg/dL (Negative) H 06/15/21 17:55 Ur Leukocyte Esterase 2+ (Negative) H 06/15/21 17:55 Urine RBC 10-15 /hpf (0-2) H 06/15/21 17:55 Urine WBC Too numerous to cnt /hpf (0-5) H 06/15/21 17:55 Ur Squamous Epith Cells 0-4 /hpf (0-5) H 06/15/21 17:55 Amorphous Sediment Not Reportable 06/15/21 17:55 Urine Bacteria 3+ /hpf (NONE) H 06/15/21 17:55 Urine HCG, Qual Negative (Negative) 06/15/21 17:55 Coronavirus 229E (PCR) Not detected (NOT DETECT) 06/15/21 22:32 SARS-CoV-2 (PCR) Not detected (NOT DETECT) 06/15/21 22:32 Discharge Plan Discharge Patient Disposition: Admitted As Inpatient Admit Provider: Dirk Vick Clinical Impression: UTI (urinary tract infection), Sepsis, Elevated troponin, Suspected pulmonary embolism, Elevated brain natriuretic peptide (BNP) level Condition: Stable Sign Out Sign Out Data: Patient Sign Out occurred on 06/15/21 at 18:25. Patient's care was discussed, a nd care was transferred from to David Hay MD. Post-Handoff Eval: See MDM Coding Level of Care Code ED [employer]isher for Chg Fwd Exam Comprehensive Documented by User: David Hay MD 06/19/21 07:36 HPI - General Adult General: Chief complaint: General Medical Stated complaint: N/V/D, abd pain Time Seen by Provider: 06/15/21 16:29 PFSH ED PFSH: Medical History Bipolar disorder Cellulitis Depression Fibromyalgia syndrome Hypothyroidism [facility] endocrinology--Dr Haider Leg pain Morbid obesity Multiple personality disorder No pertinent past medical history neghx: htn,dm,dvt/pe PCP: Kiesha Aguilar Nocturnal polyuria Osteoarthritis Surgical History H/O laparoscopy (~2010) treatment of ovarian cysts; performed in [place] History of cholecystectomy 2017-lap History of colonoscopy with polypectomy 2017 History of dental surgery History of placement of ear tubes History of tonsillectomy and adenoidectomy Family History Grandmother Breast cancer Maternal--dx age unknown Diabetes Maternal Hypertension Maternal Mother Breast cancer dx age 40's ; unknown if hormone receptive Thyroid disease Grandfather No problems noted. Sister Thyroid disease Denies family history of Colon cancer Ovarian cancer Hypercholesteremia Uterine cancer Stroke Social History Smoking and tobacco status: current every day smoker Course Vital Signs: Vital signs: Vital Signs Temperature 98.5 F 06/18/21 11:02 Pulse Rate 78 06/18/21 11:02 Respiratory Rate 22 H 06/18/21 11:02 Blood Pressure 151/97 06/18/21 11:02 Pulse Oximetry 93 06/18/21 11:02 MDM - General Adult Medical Decision Making - Patient care handoff received from Dr. Booth pending completion of ED evaluation. Patient was personally seen and evaluated by me. - In summary patient appears to have urosepsis however there is additional illness with questionably new oxygen requirement. Apparently at some point in the past the patient has required oxygen however is not in the recent months to year. Patient additionally tachycardic and has evidence of right heart strain including elevated troponin and BNP. - Unfortunately, given patient's body habitus, there are significant limitations to imaging. There is no obvious abnormality on noncontrasted study of the abdomen and pelvis. Given the elevated BNP and troponin as well as tachycardia and oxygen requirement I do feel that patient requires a CTA even given this to rule out saddle pulmonary believes him as that would require intervention at outside facility. - Patient has received 30 cc/kg at least ideal body weight of fluid resuscitation in addition antibiotics and this will hopefully help mitigate any theoretical risk of contrast. - There is no evidence of central pulmonary realism however after discussion with admitting physician we will proceed with empiric therapy given high clinical suspicion and inability to optimally evaluate segmental or subsegmental pulmonary arteries. - I did discuss risks and benefits with patient and her typical staff. Additionally I contacted and spoke via telephone with the patient's guardian who was agreeable to treatment plan as we believe is indicated. I do believe that t reatment is indicated despite the risk given the degree of uncertainty and patient's current clinical status. - Patient to be admitted to hospital for definitive management and further testing is indicated. Hospitalist service contacted and agreed admit the patient. David Hay MD Emergency Medicine Lab Data : 06/18/21 02:40 06/18/21 02:40 Radiology Impressions Chest X-Ray 06/15/21 17:03 IMPRESSION: No acute findings. Abdomen/Pelvis CT 06/15/21 17:26 IMPRESSION: No acute findings. Chest CTA 06/15/21 20:22 IMPRESSION: 1. Extremely limited evaluation for pulmonary embolism due to the limitations described in the body of the report. No large central pulmonary embolism is seen within the main pulmonary arteries, but examination is essentially nondiagnostic. 2. There is an elevated RV/LV ratio greater than 1 which is suggestive of right ventricular dysfunction. Venous Duplex 06/15/21 23:28 IMPRESSION: 1. No evidence of acute right lower extremity DVT. 2. No evidence of acute left lower extremity DVT. Laboratory Results WBC 22.2 10^3/uL (4.0-10.0) H 06/15/21 17:02 RBC 4.40 10^6/uL (4.1-5.3) 06/15/21 17:02 Hgb 13.5 g/dL (11.5-15.3) 06/15/21 17:02 Hct 42.9 % (37.0-47.0) 06/15/21 17:02 MCV 97.5 fl (81-99) 06/15/21 17:02 MCH 30.7 pg (28.0-34.0) 06/15/21 17:02 MCHC 31.5 g/dL (30.0-36.0) 06/15/21 17:02 RDW 16.7 % (12.1-15.1) H 06/15/21 17:02 Plt Count 266 10^3/cmm (130-400) 06/15/21 17:02 MPV 11.2 fL (7.4-10.4) H 06/15/21 17:02 Neut % (Auto) 79.8 % 06/15/21 17:02 Lymph % (Auto) 9.7 % 06/15/21 17:02 [place] % (Auto) 8.9 % 06/15/21 17:02 Eos % (Auto) 0.2 % 06/15/21 17:02 Baso % (Auto) 0.5 % 06/15/21 17:02 Neut # (Auto) 17.74 10^3/uL (1.8-7.7) H 06/15/21 17:02 Lymph # (Auto) 2.2 10^3/uL (0.8-4.8) 06/15/21 17:02 [place] # (Auto) 2.0 10^3/uL (0.2-0.9) H 06/15/21 17:02 Eos # (Auto) 0.0 10^3/uL (0.0-0.8) 06/15/21 17:02 Baso # (Auto) 0.1 10^3/uL (0.0-0.1) 06/15/21 17:02 Nucleated RBC % (auto) 0 % 06/15/21 17:02 Nucleated RBCs # 0.0 /100WBC 06/15/21 17:02 PT 15.50 SECONDS (12.1-14.9) H 06/15/21 18:06 INR 1.20 (0.8-1.2) 06/15/21 18:06 APTT 35.6 SECONDS (23.9-36.7) 06/15/21 18:06 D-Dimer 3.93 ug/mIFEU (0-0.59) H 06/15/21 18:06 Specimen Type Arterial 06/15/21 17:36 Sample Site Radial, left 06/15/21 17:36 ABG pH 7.44 (7.35-7.45) 06/15/21 17:36 ABG pCO2 36.1 mmHg (35-45) 06/15/21 17:36 ABG pO2 86.8 mmHg (80.0-100.0) 06/15/21 17:36 ABG HCO3 24.5 mmol/L (22-26) 06/15/21 17:36 ABG O2 Saturation 97.6 06/15/21 17:36 ABG Base Excess 0.6 mmol/L (-2.0-2.0) 06/15/21 17:36 Tyrese Test Pos 06/15/21 17:36 A-a O2 Gradient 16.3 mmHg (5-10) H 06/15/21 17:36 Hematocrit 42.1 % (37-47) 06/15/21 17:36 Hgb O2 Saturation 93.8 % (95-100) L 06/15/21 17:36 Carboxyhemoglobin 3.3 %THgb (0.4-20.1) 06/15/21 17:36 Methemoglobin 0.6 % (0.4-1.5) 06/15/21 17:36 Total Hemoglobin 13.7 g/dL (12-16) 06/15/21 17:36 Sodium 134.0 mmol/L (131-143) 06/15/21 17:36 Potassium 4.1 mmol/L (3.5-5.0) 06/15/21 17:36 Glucose 108.0 mg/dL (70-115) 06/15/21 17:36 Ionized Calcium 1.1 mmol/L (1.1-1.4) 06/15/21 17:36 O2 Delivery Device Nc 06/15/21 17:36 O2 Liters/Min 4.0 % 06/15/21 17:36 FiO2 36.0 % 06/15/21 17:36 Performance Solutions Specialist ID Ed 06/15/21 17:36 Sodium 133 mmol/L (136-145) L 06/15/21 17:02 Potassium 4.4 mmol/L (3.5-5.1) 06/15/21 17:02 Chloride 96 mmol/L (98-107) L 06/15/21 17:02 Carbon Dioxide 24 mmol/L (22-29) 06/15/21 17:02 Anion Gap 17.4 (5-19) 06/15/21 17:02 BUN 27 mg/dL (6-20) H 06/15/21 17:02 Creatinine 1.7 mg/dL (0.5-0.9) H 06/15/21 17:02 GFR Calculation 34.0 mL/min (90-130) L 06/15/21 17:02 Glucose 111 mg/dL (65-115) 06/15/21 17:02 Calculated Osmolality 282 mOsm/kg (285-295) L 06/15/21 17:02 Lactic Acid 0.7 mmol/L (0.5-2.2) 06/15/21 20:03 Calcium 8.9 mg/dL (8.5-10.5) 06/15/21 17:02 Total Bilirubin 0.5 mg/dL (0.15-1.2) 06/15/21 17:02 AST 22 U/L (0-32) 06/15/21 17:02 ALT 15 U/L (0-33) 06/15/21 17:02 Alkaline Phosphatase 280 IU/L (35-105) H 06/15/21 17:02 Troponin T Baseline 138 ng/L (0-10) H* 06/15/21 17:02 Troponin T 120 Minute 104.2 ng/L (0-10) H 06/15/21 20:03 Delta Troponin T -33.8 ABS# (0-10) L 06/15/21 20:03 NT-Pro-B Natriuret Pep 69656 pg/mL (0-125) H 06/15/21 17:02 Total Protein 7.2 g/dL (6.6-8.7) 06/15/21 17:02 Albumin 3.0 g/dL (3.5-5.2) L 06/15/21 17:02 Globulin 4.2 g/dL (1.3-4.6) 06/15/21 17:02 Lipase 26 U/L (13-60) 06/15/21 17:02 HCG, Qual Negative (Negative) 06/15/21 17:02 Urine Color Yellow (Yellow) 06/15/21 17:55 Urine Appearance Cloudy (CLEAR) 06/15/21 17:55 Urine pH 5 (5-7) 06/15/21 17:55 Ur Specific [place] 1.020 (1.005-1.030) 06/15/21 17:55 Urine Protein 2+ (Negative) H 06/15/21 17:55 Urine Glucose (UA) Norm (Normal) 06/15/21 17:55 Urine Ketones Negative (Negative) 06/15/21 17:55 Urine Blood 3+ (Negative) H 06/15/21 17:55 Urine Nitrate Negative (Negative) 06/15/21 17:55 Urine Bilirubin Neg (Negative) 06/15/21 17:55 Urine Urobilinogen 1 mg/dL (Negative) H 06/15/21 17:55 Ur Leukocyte Esterase 2+ (Negative) H 06/15/21 17:55 Urine RBC 10-15 /hpf (0-2) H 06/15/21 17:55 Urine WBC Too numerous to cnt /hpf (0-5) H 06/15/21 17:55 Ur Squamous Epith Cells 0-4 /hpf (0-5) H 06/15/21 17:55 Amorphous Sediment Not Reportable 06/15/21 17:55 Urine Bacteria 3+ /hpf (NONE) H 06/15/21 17:55 Urine HCG, Qual Negative (Negative) 06/15/21 17:55 Coronavirus 229E (PCR) Not detected (NOT DETECT) 06/15/21 22:32 SARS-CoV-2 (PCR) Not detected (NOT DETECT) 06/15/21 22:32 Critical Care Time 2 Critical Care Time: Critical Care Time: Yes Total Critical Care Time: 40 Attestation: Due to a high probability of clinically significant, possibly life threatening deterioration, the patient required my highest level of attention and preparedness to intervene emergently and I personally spent this critical care time directly and personally managing the patient. This critical care time included obtaining a history; examining the patient; pulse oximetry; ordering and review of laboratory and imaging studies; arranging urgent treatment with development of a management plan; evaluation of patient's response to treatment; frequent reassessment; and, discussions with other providers as applicable. It was exclusive of separately billable procedures. Primary systems involved was pulmonary, genitourinary, immune Discharge Plan Discharge Patient Disposition: Admitted As Inpatient Admit Provider: Dirk Vick Clinical Impression: UTI (urinary tract infection), Sepsis, Elevated troponin, Suspected pulmonary embolism, Elevated brain natriuretic peptide (BNP) level Condition: Stable Sign Out Sign Out Data: Patient Sign Out occurred on 06/15/21 at 18:25. Patient's care was discussed, and care was transferred from to David Hay MD. Post-Handoff Eval: See MDM Coding Level of Care Code ED [employer]isher for Chg Fwd Exam Comprehensive
--- NOTE | 2021-06-15 17:03 | XRR_ITS ---
PROCEDURE INFORMATION: Exam: XR Chest Exam date and time: 06/15/2021 5:03 PM Age: 36 years old Clinical indication: Dyspnea; Additional info: Hypoxia TECHNIQUE: Imaging protocol: XR of the chest. Views: 1 view. COMPARISON: CR XR chest 1V portable [id number] 09/19/2020 6:53 PM FINDINGS: Lungs: Unremarkable. No consolidation. Pleural spaces: Unremarkable. No pleural effusion. No pneumothorax. Heart/Mediastinum: Unremarkable. No cardiomegaly. Bones/joints: Unremarkable. XR/XR chest 1V portable [id number] IMPRESSION: No acute findings.
[2021-06-15 17:21] LABS: Basophils # 0.1 10^3/uL (0.0-0.1); Basophils % 0.5 %; Eosinophils % 0.2 %; Hematocrit 42.9 % (37.0-47.0); Hemoglobin 13.5 g/dL (11.5-15.3); Lymphocytes # 2.2 10^3/uL (0.8-4.8); Lymphocytes % 9.7 %; Mean Corpuscular HGB Conc 31.5 g/dL (30.0-36.0); Mean Corpuscular Hemoglobin 30.7 pg (28.0-34.0); Mean Corpuscular Volume 97.5 fl (81-99); Mean Platelet Volume 11.2 fL (7.4-10.4); Monocytes % 8.9 %; Neutrophils # 17.74 10^3/uL (1.8-7.7); Neutrophils % 79.8 %; Nucleated Red Blood Cells % 0 %; Platelet Count 266 10^3/cmm (130-400); Red Cell Distribution Width 16.7 % (12.1-15.1); White Blood Count 22.2 10^3/uL (4.0-10.0)
--- NOTE | 2021-06-15 17:26 | CTR_ITS ---
PROCEDURE INFORMATION: Exam: CT Abdomen And Pelvis Without Contrast Exam date and time: 06/15/2021 5:26 PM Age: 36 years old Clinical indication: Patient HX: Generalized abdominal pain x1 week; Additional info: Abd pain TECHNIQUE: Imaging protocol: Computed tomography of the abdomen and pelvis without contrast. Radiation optimization: All CT scans at this facility use at least one of these dose optimization techniques: automated exposure control; mA and/or kV adjustment per patient size (includes targeted exams where dose is matched to clinical indication); or iterative reconstruction. COMPARISON: CT abdomen pelvis w con* [id number] 02/16/2020 5:48 PM RADIATION DOSE METRICS: Total DLP (mGy-cm): 2170.72 FINDINGS: Liver: Normal. No mass. Gallbladder and bile ducts: Cholecystectomy. No ductal dilation. Pancreas: Diffuse atrophy. No ductal dilation. Spleen: A few punctate calcified granulomas are noted. No splenomegaly. Adrenal glands: Normal. No mass. Kidneys and ureters: Moderate asymmetric atrophy of left kidney, similar to prior study. No hydronephrosis. Stomach and bowel: Unremarkable. No obstruction. No mucosal thickening. Appendix: No evidence of appendicitis. Intraperitoneal space: Unremarkable. No free air. No significant fluid collection. Vasculature: Unremarkable. No abdominal aortic aneurysm. Lymph nodes: Unremarkable. No enlarged lymph nodes. Urinary bladder: Unremarkable as visualized. Reproductive: Unremarkable as visualized. Bones/joints: No acute fracture. Soft tissues: Unremarkable. CT/CT abdomen pelvis wo con [id number] IMPRESSION: No acute findings.
[2021-06-15 17:46] LABS: ABG PCO2 36.1 mmHg (35-45); ABG PH Result 7.44 (7.35-7.45); Alveolar-Arterial Oxygen Gradi 16.3 mmHg (5-10); Arterial Blood Gas Hematocrit 42.1 % (37-47); Base Excess ABG 0.6 mmol/L (-2.0-2.0); Blood Gas Allen Test Pos; Blood Gas Operator Identificat ED; Blood Gas Sample Site Radial, left; Blood Gas Sample Type Arterial; Carboxyhemoglobin 3.3 %THgb (0.4-20.1); HCO3 ABG 24.5 mmol/L (22-26); HGB O2 Sat 93.8 % (95-100); Ionized Calcium Level - ABG 1.1 mmol/L (1.1-1.4); Methemoglobin 0.6 % (0.4-1.5); Oxygen Device NC; Oxygen Saturation ABG 97.6; PO2 ABG 86.8 mmHg (80.0-100.0); Potassium Level - ABG 4.1 mmol/L (3.5-5.0); Total Hemoglobin 13.7 g/dL (12-16)
[2021-06-15 17:50] LABS: HCG, Serum Qual Negative (Negative)
[2021-06-15 17:53] LABS: Alanine Aminotransferase 15 U/L (0-33); Alkaline Phosphatase 280 IU/L (35-105); Anion Gap 17.4 (5-19); Aspartate Amino Transferase 22 U/L (0-32); Blood Urea Nitrogen 27 mg/dL (6-20); Calcium 8.9 mg/dL (8.5-10.5); Carbon Dioxide 24 mmol/L (22-29); Chloride 96 mmol/L (98-107); Globulin 4.2 g/dL (1.3-4.6); Glucose 111 mg/dL (65-115); Lipase 26 U/L (13-60); Osmolality Calculated 282 mOsm/kg (285-295); Potassium 4.4 mmol/L (3.5-5.1); Sodium 133 mmol/L (136-145); Total Bilirubin 0.5 mg/dL (0.15-1.2); Total Protein 7.2 g/dL (6.6-8.7)
[2021-06-15 18:26] LABS: Add Urine Microscopic? YES; Bilirubin Urine Neg (Negative); Blood Urine 3+ (Negative); Glucose Urine UA Norm (Normal); Ketones Urine Negative (Negative); Leukocyte Esterase Urine 2+ (Negative); Nitrate Urine Negative (Negative); Protein Urine 2+ (Negative); Urine Appearance Cloudy (CLEAR); Urine Color Yellow (Yellow); Urobilinogen Urine 1 mg/dL (Negative); pH Urine 5 (5-7)
[2021-06-15 18:28] LABS: Add Urine Culture? Yes; Bacteria Urine 3+ /hpf; Squamous Epithelial Cell Urine 0-4 /hpf (0-5); WBC Urine TOO NUMEROUS TO CNT /hpf (0-5)
[2021-06-15] MEDS: sodium chloride 0.9% 1,000 ML 999 ML IV ×2 (18:30→19:39)
--- NOTE | 2021-06-15 19:17 | ECG_ITS ---
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 Measurements Intervals [place] Rate: 92 P: 77 MD: 144 QRS: 78 QRSD: 117 T: -42 QT: 374 QTc: 464 Interpretive Statements SINUS RHYTHM INCOMPLETE RIGHT BUNDLE BRANCH BLOCK [90+ ms QRS DURATION, TERMINAL R IN V1/V2, 40+ ms S IN I/aVL/V4/V5/V6] MODERATE T-WAVE ABNORMALITY, CONSIDER ANTEROLATERAL ISCHEMIA [-0.1+ mV T-WAVE IN V3-V6] MODERATE T-WAVE ABNORMALITY, CONSIDER INFERIOR ISCHEMIA [-0.1+ mV T-WAVE IN II/aVF] No previous ECG available for comparison Electronically Signed On 06-15-2021 20:58:36 CDT by Ilan Santana M.D. [id number]
[2021-06-15 19:37] LABS: D Dimer 3.93 ug/mIFEU (0-0.59)
[2021-06-15 19:54] LABS: NT Pro B Type Natriuretic Pept 16731 pg/mL (0-125)
[2021-06-15] MEDS: cefTRIAXone 1,000 MG in sodium chloride 0.9% (plus) 50 ML 100 MG IV (20:09)
[2021-06-15 20:15] LABS: Troponin(5th) Baseline 138 ng/L (0-10)
--- NOTE | 2021-06-15 20:22 | CTR_ITS ---
PROCEDURE INFORMATION: Exam: CTA Chest With Contrast Exam date and time: 06/15/2021 8:22 PM Age: 36 years old Clinical indication: Tachypnea; Additional info: New o2, tachycardia, elevated ddimer, evidence of rv dysfunc TECHNIQUE: Imaging protocol: Computed tomographic angiography of the chest with contrast. 3D rendering (Not supervised by radiologist): MIP and/or 3D reconstructed images were created by the technologist. Radiation optimization: All CT scans at this facility use at least one of these dose optimization techniques: automated exposure control; mA and/or kV adjustment per patient size (includes targeted exams where dose is matched to clinical indication); or iterative reconstruction. Contrast material: VISI; Contrast volume: 95 ml; Contrast route: INTRAVENOUS (IV); COMPARISON: CR (CHEST, ) 06/15/2021 4:17 PM RADIATION DOSE METRICS: Total DLP (mGy-cm): 568.36 FINDINGS: Pulmonary arteries: Evaluation for pulmonary embolism is extremely limited due to extensive noise artifact as well as suboptimal opacification of the pulmonary arterial system. No large central pulmonary embolism is seen within the main pulmonary arteries, but examination is essentially nondiagnostic. Aorta: No aortic aneurysm. No aortic dissection. Lungs: Unremarkable. No consolidation. No masses. Pleural spaces: Unremarkable. No pneumothorax. No pleural effusion. Heart: There is an increased RV/LV ratio greater than 1 which is suggestive of right ventricular dysfunction. No cardiomegaly. No pericardial effusion. Lymph nodes: Unremarkable. No enlarged lymph nodes. Bones/joints: Unremarkable. No acute fracture. Soft tissues: Unremarkable. CT/CT angio chest PE protcl [id number] IMPRESSION: 1. Extremely limited evaluation for pulmonary embolism due to the limitations described in the body of the report. No large central pulmonary embolism is seen within the main pulmonary arteries, but examination is essentially nondiagnostic. 2. There is an elevated RV/LV ratio greater than 1 which is suggestive of right ventricular dysfunction.
[2021-06-15 20:27] LABS: Lactic Sepsis W/Reflex 0.7 mmol/L (0.5-2.2); Troponin 5 2HR Delta -33.8 ABS# (0-10)
[2021-06-15 20:28] LABS: Troponin 5 2HR 104.2 ng/L (0-10)
--- NOTE | 2021-06-15 21:17 | ECG_ITS ---
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 Measurements Intervals [place] Rate: 92 P: 80 ME: 147 QRS: 83 QRSD: 124 T: -46 QT: 392 QTc: 485 Interpretive Statements SINUS RHYTHM POSSIBLE RIGHT VENTRICULAR CONDUCTION DELAY [RSR (QR) IN V1/V2] MODERATE T-WAVE ABNORMALITY, CONSIDER ANTEROLATERAL ISCHEMIA [-0.1+ mV T-WAVE IN V3-V6] MODERATE T-WAVE ABNORMALITY, CONSIDER INFERIOR ISCHEMIA [-0.1+ mV T-WAVE IN II/aVF] Compared to ECG 06/15/2021 19:46:23 Incomplete right bundle-branch block no longer present T-wave abnormality still present Possible ischemia still present Electronically Signed On 06-17-2021 20:29:36 CDT by Ilan Santana M.D. [id number]
--- NOTE | 2021-06-15 21:43 | PM.HP ---
Providers/Chief Complaint Primary Care Provider: RANDY Stevens Chief Complaint: N/V/D, abd pain History of Present Illness 36-year-old lady residential home resident with history of several psychiatric problems, behavioral disturbance, multiple personality disorder, bipolar disorder, depression, fibromyalgia, morbid obesity, poor self-care, other problems, is brought for evaluation from the home where she usually has 24-hour support due to developing 1 week of flank pain, lower abdominal discomfort, dysuria, reported also decreased urinary output, reported also cough and dry heaving, as well as few episodes of diarrhea. On presentation in ER she is found to have leukocytosis, 20.2, temp is 99.3, with sinus tachycardia, initially 110-113, with fluid resuscitation improved down to 99-97. Blood pressure 101/67. ABG 7.44/36.1/86.8/24.5, she has been requiring 3-4 L nasal cannula oxygen although normally not on supplemental oxygen. Noted sodium 133, chloride 96, BUN 27, creatinine 1.7. Alk phos chronically elevated, 280. Baseline troponin elevated 138, 2-hour troponin 104.2. NT proBNP 16,731. Albumin 3. Lipase 26. bHCG negative. UA with 2+ protein, 3+ blood, 1 urobilinogen, 2+ leukocyte esterase, nitrate negative, 10-15 RBC, too numerous to count WBC, 0-4 squamous arterial cells. 3+ bacteria. She and her caregivers do not recall any history of resistant organisms with her prior urinary infection. She is reported to have poor hygiene, does not shower often and requires quite significant prompting to shower. Does not wash all places during the shower. She was assessed for possible obstructive uropathy with CT abdomen pelvis without contrast which showed no acute findings, although somewhat limited study due to body habitus. She has received 2 doses of vaccination for COVID-19 in November and December 2020. Review of Systems Const: Reports: fatigue and malaise; Denies: fever(s), chills or body aches Eyes: Denies: change in vision or eye redness ENMT: Denies: throat pain, oral sores or ear or mastoid pain Card: Denies: chest pain, edema, pre-syncope or dyspnea on exertion Resp: Reports: non-productive cough; Denies: dyspnea, productive cough, change in phlegm color or hemoptysis GI: Reports: diarrhea (2 episodes) and other (dry heaving); Denies: abdominal pain, nausea, constipation, hematochezia or melena : Reports: flank pain and dysuria Musc: Denies: back pain, joint swelling or joint redness Skin/Breast: Denies: rash, sores or new lesions Neuro: Denies: headache(s), numbness in extremities, weakness in extremities, dizziness, confusion or seizure-like activity Endo: Denies: polyuria or polydipsia Myles/Lymph: Denies: easy bleeding or purpura All/Imm: Denies: urticaria, throat swelling or tongue swelling Medications/Allergies Home Medications Medication Instructions Recorded Confirmed Last Taken Type bupropion HCl 300 mg 24 hr tablet, 300 mg PO DAILY@02/16/20 06/15/21 06/15/21 History extended release cetirizine 10 mg tablet 10 mg PO DAILY@02/16/20 06/15/21 06/15/21 History cyclobenzaprine 10 mg tablet 10 mg PO TID PRN 02/16/20 06/15/21 09/09/20 History epinephrine 0.3 mg/0.3 mL See Rx Instructions .ROUTE .COMPLEX 02/16/20 06/15/21 Unknown History injection syringe famotidine 20 mg tablet 20 mg PO DAILY@02/16/20 06/15/21 06/15/21 History fluticasone propionate 50 1 spray INTRANASAL DAILY@02/16/20 06/15/21 06/15/21 History mcg/actuation nasal spray,suspension hydroxyzine HCl 25 mg tablet 25 mg PO DAILY PRN 02/16/20 06/15/21 06/14/21 History levothyroxine 100 mcg tablet 100 mcg PO DAILY@02/16/20 06/15/21 06/15/21 History potassium chloride 20 mEq 20 meq PO DAILY@02/16/20 06/15/21 06/15/21 History tablet,extended release sertraline 50 mg tablet 150 mg PO DAILY@02/16/20 06/15/21 06/15/21 History Icy Hot Extra Strength See Rx Instructions .ROUTE .COMPLEX 05/12/20 06/15/21 Unknown History calcium carbonate 500 mg (1,250 1 tab PO DAILY@08 05/12/20 06/15/21 06/15/21 History mg)-vitamin D3 200 unit tablet (Oyster Shell Calcium-Vit D3) gabapentin 600 mg tablet 600 mg PO TID@,05/12/20 06/15/21 06/15/21 History cholecalciferol (vitamin D3) 25 25 mcg PO DAILY@08 07/24/20 06/15/21 06/15/21 History mcg (1,000 unit) capsule (Vitamin D3) diphenhydramine HCl 25 mg capsule 25 mg PO Q6H PRN 07/24/20 06/15/21 Unknown History (Banophen) furosemide 80 mg tablet (Lasix) 40 mg PO .q 3 days tab 10/09/20 06/15/21 06/14/21 History norethindrone (contraceptive) 0.35 0.35 mg PO DAILY #84 tab 12/18/20 06/15/21 06/15/21 Rx mg tablet desmopressin 0.2 mg tablet 0.2 mg PO BEDTIME 06/15/21 06/15/21 06/14/21 History dicyclomine 10 mg capsule 10 mg PO TID 06/15/21 06/15/21 Unknown History loperamide 2 mg capsule 2 mg PO Q8H PRN 06/15/21 06/15/21 06/14/21 History lurasidone 60 mg tablet (Latuda) 60 mg PO DAILY 06/15/21 06/15/21 06/15/21 History oxcarbazepine 300 mg tablet 300 mg PO BID 06/15/21 06/15/21 06/15/21 History Allergies Allergy/AdvReac Type Severity Reaction Status Date / Time acetaminophen [From Tylenol] Allergy ALGY-Rash Verified 06/15/21 18:11 aspirin Allergy ALGY-Rash Verified 06/15/21 18:11 azithromycin Allergy ALGY-Rash Verified 06/15/21 18:11 haloperidol [From Haldol] Allergy ADR-Seizure Verified 06/15/21 18:11 tramadol Allergy ADR-Seizure Verified 06/15/21 18:11 ibuprofen AdvReac Mild Unknown Verified 06/15/21 18:11 bee strings Allergy Anaphylaxis Uncoded 12/16/20 15:05 PFSH Acute PFSH: Medical History (Updated 06/15/21 @ 22:11 by Dirk Vick MD) Bipolar disorder Cellulitis Depression Fibromyalgia syndrome Hypothyroidism [facility] endocrinology--Dr Haider Leg pain Morbid obesity Multiple personality disorder No pertinent past medical history neghx: htn,dm,dvt/pe PCP: Kiesha Aguilar Nocturnal polyuria Osteoarthritis Surgical History H/O laparoscopy (~2010) treatment of ovarian cysts; performed in [place] History of cholecystectomy 2017-lap History of colonoscopy with polypectomy 2018 History of dental surgery History of placement of ear tubes History of tonsillectomy and adenoidectomy Family History Grandmother Breast cancer Maternal--dx age unknown Diabetes Maternal Hypertension Maternal Mother Breast cancer dx age 40's ; unknown if hormone receptive Thyroid disease Grandfather No problems noted. Sister Thyroid disease Denies family history of Colon cancer Ovarian cancer Hypercholesteremia Uterine cancer Stroke Social History Smoking and tobacco status: current every day smoker Vitals/I&O/Wt Last Vital Signs Temp 99.3 F 06/15/21 16:15 Pulse 97 06/15/21 18:23 Resp 18 06/15/21 18:23 BP 101/67 06/15/21 18:23 Pulse Ox 90 06/15/21 21:27 06/15/21 06/15/21 06/15/21 06:59 14:59 22:59 Intake Total 1999 Balance 1999 Weight last 48 hrs Weight 200.941 kg Physical Exam Const: COMMON NORMALS: no acute distress and patient oriented x3 HENMT: COMMON NORMALS: oropharynx normal Neck/C-Spine: COMMON NORMALS: no JVD Resp: COMMON NORMALS: normal respiratory effort and clear to auscultation bilaterally AUSCULTATION: clear to auscultation bilaterally Cardio: COMMON NORMALS: no JVD, regular rhythm, S1 normal heart sound present, S2 normal heart sound present and No murmurs present (Cardio) RHYTHM: regular rhythm HEART SOUNDS: S1 normal heart sound present and S2 normal heart sound present GI: COMMON NORMALS: Normal to inspection, nondistended, normoactive bowel sounds present, Soft to palpation and non-tender PALPATION: Yes Soft to palpation Extremity: COMMON NORMALS: no joint enlargement and no pedal edema Neuro: COMMON NORMALS: patient oriented x3 and moves all extremities Skin: COMMON NORMALS: no rashes or lesions noted GENERAL SKIN EXAM: no rashes or lesions noted Data : 06/15/21 17:02 06/15/21 17:02 Micro: Microbiology 06/15/21 20:03 Blood Culture - Preliminary Blood SPECIMEN COLLECTED 06/15/21 20:03 Blood Culture - Preliminary Blood SPECIMEN COLLECTED A&P Assessment and plan (1) Complicated UTI (urinary tract infection): Complicated urinary infection with ascending pyelonephritis/early pyelonephritis, although not visible on CT scan, with sepsis with leukocytosis 20.2, sinus tachycardia, initially 110-113, currently down to 99-97. No past history of resistant infections. Continue ceftriaxone. Follow-up urine culture. Blood culture. No sign of obstructive uropathy on CT abdomen pelvis. Status: Acute (2) Sepsis: As above. Follow blood culture, urine culture. Continue ceftriaxone. Status: Acute (3) Troponin level elevated: She denies chest pain or pressure. Initial troponin I 138, 2-hour troponin 104. Discussed with her caregiver, difficult to exclude acute IL sometime ago with downtrending troponin, although would suspect may be secondary to demand ischemia with sepsis, complicated UTI. We will complete troponin and EKG series. Assess by TTE. Additionally with new hypoxia, elevation of D-dimer, she is also going for CT angiogram to exclude PE, possible leading to heart strain. Pending. Status: Acute (4) D-dimer, elevated: Follow-up CT angiogram chest results. Assessment bilateral lower extremity duplex. She is not mobile at baseline, requiring quite significant encouragement for mobilization. Status: Acute (5) Cough: New hypoxia, requiring 3-4 L of oxygen. Cough, cough leading to dry heaves. For episodes of diarrhea. Chest x-ray is without acute findings. Pending assessment by CTA. She has had vaccination for COVID-19, 2 vaccines. We will additionally assess COVID-19 PCR. Status: Acute (6) Diarrhea: Assess COVID-19 PCR. Check stool studies. Several episodes of diarrhea. No recent antibiotic. Status: Acute Qualifiers: Diarrhea type: unspecified type Qualified Code(s): R19.7 - Diarrhea, unspecified (7) Sleep apnea: She has not had formal diagnosis of sleep apnea, but on entering the room she is snoring, noted to be hypoxic despite 2 L of oxygen. Morbidly obese. Appears to have sleep apnea, please refer for sleep study after discharge. Status: Acute (8) ERYN (acute kidney injury): Creatinine 1.7, previously normal baseline. Prescription with her caregivers she does not frequently take NSAIDs only once in a while. She has had poor oral intake recently. She is also on Lasix due to previous concern of congestive heart failure. Prior echo with normal ejection fraction. No obstructive uropathy noted on CT. Has received fluid challenge in ER. 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 Trace edema at ankles. BNP is elevated, but may be misleading in the setting of acute kidney injury. For now Lasix are on hold. Monitor I&O, renal function, reassess volume status. Status: Acute (9) Hypoxia: New hypoxia. As above. Status: Acute Plan Hypothyroidism Bipolar disorder Depression Personality disorder Morbid obesity Chronically elevated alk phos: Follow-up outpatient Poor functional capacity: Depending on how she is doing hemodynamically consider addition of PT and OT assessment. Her caregivers report that she does sometimes have multiple health complaints sometimes possibly as part of attention seeking behavior, however, her current complaints were concerning to them. Discussed with her caregiver Janee Garcia and caregiver at bedside Triny. For now Lovenox VT prophylaxis, but please reassess appropriateness depending on changes in renal function. Attestations Medical Necessity Statement*: Admission of over 2 midnights is anticipated for assessment management of complicated UTI, sepsis, ERYN, hypoxia, cough, diarrhea. Coding Level of Care Code Acute [employer] for [facility] Fwd Diagnoses Sleep apnea G47.30 Complicated UTI (urinary tract infection) N39.0 Sepsis A41.9 Troponin level elevated R77.8 D-dimer, elevated R79.89 Cough R05.9 Diarrhea R19.7 Diarrhea type: unspecified type ERYN (acute kidney injury) N17.9 Hypoxia R09.02
[2021-06-15] MEDS: iohexol 350 mg/mL 100 mL Btl IV (21:50)
[2021-06-15 22:57] LABS: Partial Thromboplastin Time 35.6 SECONDS (23.9-36.7)
[2021-06-15] MEDS: heparin 5,000 unit/mL INJ 1 mL IV (23:14)
[2021-06-15] MEDS: heparin drip 25,000 UNIT/500 ML PREMIX 36 UNIT IV (23:16)
--- NOTE | 2021-06-15 23:28 | USR_ITS ---
PROCEDURE INFORMATION: Exam: US Duplex Lower Extremity Veins, Bilateral Exam date and time: 06/15/2021 11:28 PM Age: 36 years old Clinical indication: Pain; Other: Numbness; Leg, upper and leg, lower; Bilateral; Additional info: Elevated d-dimer, assess for dvt TECHNIQUE: Imaging protocol: Real-time Duplex ultrasound of the bilateral extremities with 2-D rios scale, color Doppler flow and spectral waveform analysis with image documentation. Complete exam focused on the bilateral lower extremity veins. COMPARISON: No relevant prior studies available. FINDINGS: Evaluated veins include bilateral common femoral, proximal profunda femoral, proximal/mid/distal superficial femoral, popliteal, posterior tibial, peroneal, and proximal greater saphenous veins. Right leg: No visible clot in the included veins. The included veins appear normally compressible. Duplex Doppler evaluation demonstrates flow in the evaluated veins. Left leg: No visible clot in the included veins. The included veins appear normally compressible. Duplex Doppler evaluation demonstrates flow in the evaluated veins. US/[place] [id number] IMPRESSION: 1. No evidence of acute right lower extremity DVT. 2. No evidence of acute left lower extremity DVT.
[2021-06-16] VITALS (13 sets, daily range): BP systolic 108–146; BP diastolic 65–91; PULSE 83–102; RESP 15–26; TEMP 36.6–36.8; O2SAT 91–100; BMI 73.8
[2021-06-16 00:21] LABS: Adenovirus Not Detected (NOT DETECT); Chlamydia Pneumoniae Not Detected (NOT DETECT); Coronavirus 229E,HKU1,NL63,OC4 Not Detected (NOT DETECT); Human Metapneumovirus Not Detected (NOT DETECT); Human Rhinovirus/Enterovirus Not Detected (NOT DETECT); Influenza A Not Detected (NOT DETECT); Influenza A H1 Not Detected (NOT DETECT); Influenza A H1-2009 Not Detected (NOT DETECT); Influenza A H3 Not Detected (NOT DETECT); Influenza B Not Detected (NOT DETECT); Mycoplasma Pneumoniae Not Detected (NOT DETECT); Parainfluenza Virus Type 1 Not Detected (NOT DETECT); Parainfluenza Virus Type 2 Not Detected (NOT DETECT); Parainfluenza Virus Type 3 Not Detected (NOT DETECT); Parainfluenza Virus Type 4 Not Detected (NOT DETECT); Respiratory Syncytial Virus A Not Detected (NOT DETECT); Respiratory Syncytial Virus B Not Detected (NOT DETECT); SARS-COV-2 Not Detected (NOT DETECT)
[2021-06-16 01:23] LABS: Basophils # 0.1 10^3/uL (0.0-0.1); Basophils % 0.3 %; Eosinophils # 0.1 10^3/uL (0.0-0.8); Eosinophils % 0.3 %; Hematocrit 44.8 % (37.0-47.0); Hemoglobin 13.6 g/dL (11.5-15.3); Lymphocytes # 2.4 10^3/uL (0.8-4.8); Lymphocytes % 11.3 %; Mean Corpuscular HGB Conc 30.4 g/dL (30.0-36.0); Mean Corpuscular Hemoglobin 30.5 pg (28.0-34.0); Mean Corpuscular Volume 100.4 fl (81-99); Mean Platelet Volume 11.1 fL (7.4-10.4); Monocytes # 1.7 10^3/uL (0.2-0.9); Neutrophils # 16.45 10^3/uL (1.8-7.7); Neutrophils % 79.1 %; Nucleated Red Blood Cells % 0 %; Platelet Count 237 10^3/cmm (130-400); Red Blood Count 4.46 10^6/uL (4.1-5.3); Red Cell Distribution Width 17.2 % (12.1-15.1); White Blood Count 20.8 10^3/uL (4.0-10.0)
[2021-06-16 01:45] LABS: Alanine Aminotransferase 14 U/L (0-33); Albumin Level 3.2 g/dL (3.5-5.2); Alkaline Phosphatase 303 IU/L (35-105); Aspartate Amino Transferase 18 U/L (0-32); Blood Urea Nitrogen 26 mg/dL (6-20); Carbon Dioxide 25 mmol/L (22-29); Chloride 99 mmol/L (98-107); Globulin 3.8 g/dL (1.3-4.6); Glomerular Filtration Rate 29.9 mL/min (90-130); Glucose 97 mg/dL (65-115); Osmolality Calculated 289 mOsm/kg (285-295); Sodium 137 mmol/L (136-145); Total Bilirubin 0.4 mg/dL (0.15-1.2)
--- NOTE | 2021-06-16 02:01 | PC.NURSE ---
Admit Note Patient admitted to [facility] 111-1 from Emergency Room via stretcher. Covering service notified. Patient presents with Urosepsis and possible PE. Orders reviewed & will continue to monitor. Patient and/or student services representative oriented to environment, equipment, and informed of the following as found in the admission booklet: patient rights & responsibilities, visitor policy, hand and respiratory hygiene practice. Other education includes: []. Patient and/or student services representative verbalized understanding and asked appropriate questions.
[2021-06-16 05:33] LABS: Partial Thromboplastin Time 39.1 SECONDS (23.9-36.7)
--- NOTE | 2021-06-16 07:30 | PC.NURSE ---
Patient received from ED on heparin gtt. Possible mistake on bolus dose given. Dose is 36/hr. Repeat at 0600 was 39.1 Ptt. Dose to increase to 38 however max dose is 36. Bolus of 5000 needed however not able to give as order for bolus dose was canceled in computer. Passed information on to oncoming RN and strategic solutions consultant.
[2021-06-16] MEDS: sertraline 50 mg Tablet 150 MG PO (09:29)
[2021-06-16] MEDS: OXcarbazepine 300 mg Tablet PO ×2 (09:30→18:45)
[2021-06-16] MEDS: levothyroxine 100 mcg Tablet PO (09:30)
[2021-06-16] MEDS: buPROPion XL (24 HR) 300 mg Tablet PO (09:30)
[2021-06-16] MEDS: gabapentin 300 mg Capsule 600 MG PO ×3 (09:30→20:40)
[2021-06-16] MEDS: cefTRIAXone 1,000 MG in sodium chloride 0.9% (plus) 50 ML 100 MG IV ×2 (09:31→20:40)
[2021-06-16] MEDS: pantoprazole DR 40 mg Tablet PO (09:31)
--- NOTE | 2021-06-16 11:54 | PM.PN ---
Subjective Subjective: This morning patient was examined, currently on heparin drip, right ventricular dysfunction noted, no signs of PE on CTA, will see if we can do VQ scan to get further information, continue heparin drip, no active chest pain currently requiring 4-5 L nasal cannula which is new Complaining of flank pain, afebrile Appears very anxious APTT 39, nurse updated regarding APTT goal Patient is stating that she came to the hospital because her legs gave up and her flank pain was getting worse No weakness noted during my encounter this morning, Vitals/I&O/Wt Last Vital Signs Temp 98.0 F 06/16/21 08:17 Pulse 93 06/16/21 08:23 Resp 18 06/16/21 08:17 BP 118/91 06/16/21 08:17 Pulse Ox 91 06/16/21 08:23 06/15/21 06/16/21 06/16/21 22:59 06:59 14:59 Intake Total 2049 90 2139 170 / 170 Balance 2049 170 / 170 Weight last 48 hrs Weight 194.393 kg Weight 201.395 kg Weight 200.941 kg Physical Exam Narrative: Patient was sitting comfortably in her bed Currently on 4 L nasal cannula Nonlabored breathing Morbid obesity I do not appreciate any crackles or rhonchi, diminished airflow bilaterally Hard to assess her volume status No signs of edema of legs Nontender calf. Nonfocal neuro exam EOMI, PERRLA Awake and alert No signs of infection around abdominal pannus, nontender abdomen Data : 06/16/21 00:43 06/16/21 00:43 Micro: Microbiology 06/15/21 17:55 Urine Culture - Preliminary Urine,Clean Catch Gram Negative Rods 06/15/21 20:03 Blood Culture - Preliminary Blood SPECIMEN COLLECTED 06/15/21 20:03 Blood Culture - Preliminary Blood SPECIMEN COLLECTED A&P Assessment and plan (1) UTI (urinary tract infection): Status: Acute (2) Elevated troponin: Status: Acute (3) Suspected pulmonary embolism: Status: Acute (4) Elevated brain natriuretic peptide (BNP) level: Status: Acute (5) Hypoxia: Status: Acute (6) ERYN (acute kidney injury): Status: Acute (7) D-dimer, elevated: Status: Acute (8) Diarrhea: Status: Acute Qualifiers: Diarrhea type: unspecified type Qualified Code(s): R19.7 - Diarrhea, unspecified (9) Cough: Status: Acute (10) Sleep apnea: Status: Acute (11) Nocturnal polyuria: Status: Acute (12) Hypothyroidism: Status: Acute (13) Morbid obesity: Status: Acute Plan Right ventricle dysfunction troponin leakage High BNP and acute hypoxia is very suspicious for an acute PE, D-dimer is also high CTA is not impressive because of her body habitus, will see if VQ scan will give us more information Continue heparin drip Obstructive sleep apnea High BNP, right ventricular dysfunction could be related to underlying sleep apnea She does have symptoms of chronic sleep apnea such as polyuria/nocturia NSTEMI? With right ventricular dysfunction Suspicion is high for PE We will follow up with echo Currently blood pressure is stable Currently being managed as submassive PE If I see signs of further deterioration will transfer to ICU Sepsis: Ruled out Does not meet criteria for sepsis Continue ceftriaxone for UTI and possible pyelonephritis Follow-up with urine culture Currently afebrile Severe leukocytosis Full code Currently on heparin drip Regular diet Diarrhea: Rule out C. difficile Patient had only 3 episodes of diarrhea Covid PCR is negative Attestations Medical Necessity Statement*: Continue medical management Time Spent in Patient Care: 20min Coding Level of Care Code Acute Final Dressing Cutter for g Fwd Diagnoses UTI (urinary tract infection) N39.0 Elevated troponin R77.8 Suspected pulmonary embolism R09.89 Elevated brain natriuretic peptide (BNP) level R79.89 Hypoxia R09.02 ERYN (acute kidney injury) N17.9 D-dimer, elevated R79.89 Diarrhea R19.7 Diarrhea type: unspecified type Cough R05.9 Sleep apnea G47.30 Nocturnal polyuria R35.81 Hypothyroidism E03.9 Morbid obesity E66.01
[2021-06-16 12:37] LABS: Partial Thromboplastin Time 32.3 SECONDS (23.9-36.7)
[2021-06-16] MEDS: heparin drip 25,000 UNIT/500 ML PREMIX 44 UNIT IV (13:31)
[2021-06-16] MEDS: fluticasone nasal spray 16gm Btl 1 SPRAY INTRANASAL (13:33)
[2021-06-16] MEDS: sodium chloride 0.9% 500 ML 999 ML IV (13:33)
[2021-06-16] MEDS: dicyclomine 10 mg Capsule PO ×2 (13:50→20:40)
[2021-06-16] MEDS: heparin 5,000 unit/mL INJ 1 mL 7000 UNIT IVP (14:21)
--- NOTE | 2021-06-16 14:23 | PC.NURSE ---
2 pitchers of water and a sasbfinance UKa sprite
[2021-06-16 18:05] LABS: Partial Thromboplastin Time 57.6 SECONDS (23.9-36.7)
--- NOTE | 2021-06-16 21:48 | PC.NURSE ---
Dr. Vick notified of patient c/o shortness of breath. Respiratory rate 30s. Oxygen saturation 90s on 4 L NC. Patient is not arousable enough to swallow PO medications. Lungs wheezy, no crackles. RT giving patient PRN breathing treatment currently.
--- NOTE | 2021-06-16 23:28 | USCV_ITS ---
Transthoracic Echo Deann Vega Age: 36 Gender: F : 1985 Exam Date: 06/16/2021 01:26 Ordering Phys: Dirk Vick MD Technologist: Adolfo Gómez Exam Location: [facility] Indication: Elevated Troponin BP: 108 / 72 HR: 91 Rhythm: Sinus Technical Quality: Adequate MEASUREMENTS (Male / Female) Normal Values 2D ECHO LV Diastolic Diameter PLAX 3.1 cm 4.2 - 5.9 / 3.9 - 5.3 cm LV Systolic Diameter PLAX 1.6 cm IVS Diastolic Thickness 2.4 cm 0.6 - 1.0 / 0.6 - 0.9 cm IVS Systolic Thickness 2.2 cm LVPW Diastolic Thickness 1.7 cm 0.6 - 1.0 / 0.6 - 0.9 cm LVPW Systolic Thickness 2.0 cm LVOT Diameter 2.2 cm LV Ejection Fraction 2D Teich 81.8 % LV Ejection Fraction MOD 2C 55.3 % LV Ejection Fraction 2C AL 54.9 % LA Diameter 2.1 cm LA Width 4.1 cm LA Height 3.5 cm RA Width 5.0 cm RA Height 4.4 cm Aorta at Sinotubular Diameter 2.6 cm M-MODE Aortic Annulus Diameter 3.0 cm LA Ao Ratio MM 0.9 DOPPLER LVOT Peak Velocity 129.0 cm/s MV E' Velocity 15.0 cm/s TR Peak Velocity 311.0 cm/s TR Peak Gradient 38.7 mmHg TR Mean Velocity 211.4 cm/s TR Mean Gradient 21.3 mmHg TR Velocity Time Integral 97.8 cm Right Atrial Pressure 10.0 mmHg Pulmonary Artery Systolic Pressu 48.7 mmHg PV Peak Velocity 124.0 cm/s RV Acceleration Time 0.1 s RV Ejection Time 0.3 s RV AcT/ET 0.3 FINDINGS Left Ventricle Technically limited quality echocardiogram. Poor ultrasonic windows. LV systolic function is normal with EF of 55 to 60%. No regional wall motion abnormalities. Right Ventricle Not well-visualized Right Atrium Not well-visualized Left Atrium The left atrium is normal in size. Mitral Valve Not well-visualized. Mild mitral regurgitation Aortic Valve Not well-visualized Tricuspid Valve Not visualized. Mild tricuspid regurgitation is seen. RVSP is 35 to 40 mmHg. This is consistent with mild pulmonary hypertension Pulmonic Valve Not visualized Pericardium Normal pericardium without effusion. Aorta Normal ascending aorta dimension. CONCLUSIONS Technically limited quality echocardiogram because of poor ultrasonic windows. LV systolic function is normal with EF of 55 to 60% Valvular structures are not well-visualized. Mild mitral regurgitation is seen. Tricuspid regurgitation. Mild pulmonary hypertension noted. Comparison with prior echocardiogram from 10/22 is not possible because of limited quality images however LV systolic function has not significantly changed. Ilan Santana MD (Electronically Signed) Final Date: 17 June 2021 07:38 S
[2021-06-17] VITALS (10 sets, daily range): BP systolic 110–152; BP diastolic 60–101; PULSE 76–87; RESP 14–23; TEMP 35.8–36.6; O2SAT 85–97
[2021-06-17 01:12] LABS: Basophils # 0.1 10^3/uL (0.0-0.1); Basophils % 0.5 %; Eosinophils # 0.3 10^3/uL (0.0-0.8); Eosinophils % 2.4 %; Hematocrit 40.4 % (37.0-47.0); Hemoglobin 12.2 g/dL (11.5-15.3); Lymphocytes # 2.3 10^3/uL (0.8-4.8); Lymphocytes % 18.2 %; Mean Corpuscular HGB Conc 30.2 g/dL (30.0-36.0); Mean Corpuscular Hemoglobin 30.3 pg (28.0-34.0); Mean Corpuscular Volume 100.5 fl (81-99); Mean Platelet Volume 11.7 fL (7.4-10.4); Monocytes % 7.8 %; Neutrophils # 8.69 10^3/uL (1.8-7.7); Neutrophils % 70.4 %; Nucleated Red Blood Cells % 0 %; Platelet Count 246 10^3/cmm (130-400); Red Blood Count 4.02 10^6/uL (4.1-5.3); Red Cell Distribution Width 17.2 % (12.1-15.1); White Blood Count 12.3 10^3/uL (4.0-10.0)
[2021-06-17 01:27] LABS: Alanine Aminotransferase 9 U/L (0-33); Alkaline Phosphatase 254 IU/L (35-105); Anion Gap 14.6 (5-19); Aspartate Amino Transferase 15 U/L (0-32); Blood Urea Nitrogen 24 mg/dL (6-20); Calcium 8.7 mg/dL (8.5-10.5); Carbon Dioxide 25 mmol/L (22-29); Chloride 99 mmol/L (98-107); Globulin 3.7 g/dL (1.3-4.6); Glomerular Filtration Rate 39.3 mL/min (90-130); Glucose 143 mg/dL (65-115); Osmolality Calculated 287 mOsm/kg (285-295); Potassium 3.6 mmol/L (3.5-5.1); Sodium 135 mmol/L (136-145); Total Bilirubin 0.2 mg/dL (0.15-1.2); Total Protein 6.7 g/dL (6.6-8.7)
[2021-06-17 01:28] LABS: Partial Thromboplastin Time 48.1 SECONDS (23.9-36.7)
[2021-06-17] MEDS: heparin drip 25,000 UNIT/500 ML PREMIX 47 UNIT IV (01:48)
[2021-06-17] MEDS: heparin 5,000 unit/mL INJ 1 mL 2800 UNIT IVP (02:07)
--- NOTE | 2021-06-17 07:20 | PC.NURSE ---
Recieved bedside report from Winter de leon. Pt a/o, waiting for stress test this am. No needs identified at this time, reviewed poc and heparin gtt.
[2021-06-17] MEDS: gabapentin 300 mg Capsule 600 MG PO ×3 (08:00→19:52)
[2021-06-17] MEDS: pantoprazole DR 40 mg Tablet PO (08:00)
[2021-06-17] MEDS: OXcarbazepine 300 mg Tablet PO ×2 (08:00→17:04)
[2021-06-17] MEDS: buPROPion XL (24 HR) 300 mg Tablet PO (08:00)
[2021-06-17] MEDS: levothyroxine 100 mcg Tablet PO (08:00)
[2021-06-17] MEDS: dicyclomine 10 mg Capsule PO ×3 (08:00→19:53)
[2021-06-17] MEDS: cefTRIAXone 1,000 MG in sodium chloride 0.9% (plus) 50 ML 100 MG IV ×2 (08:01→19:53)
[2021-06-17] MEDS: sertraline 50 mg Tablet 150 MG PO (08:01)
[2021-06-17 08:55] LABS: Partial Thromboplastin Time 42.1 SECONDS (23.9-36.7)
--- NOTE | 2021-06-17 09:18 | PC.NURSE ---
due to pts current weight, stress test could not be completed.
[2021-06-17] MEDS: heparin 5,000 unit/mL INJ 1 mL 5000 UNIT IVP (09:23)
--- NOTE | 2021-06-17 10:15 | PM.PN ---
Subjective Subjective: This morning, patient is stating improvement in her energy, mood and symptoms Leukocytosis improved Afebrile APTT subtherapeutic Continue 48-hour heparin protocol Creatinine has improved as well Overnight pulse ox study No signs of DVT CTA inconclusive for PE Vitals/I&O/Wt Last Vital Signs Temp 97.8 F 06/17/21 07:45 Pulse 79 06/17/21 07:45 Resp 23 H 06/17/21 07:45 BP 133/82 06/17/21 07:45 Pulse Ox 89 L 06/17/21 07:45 06/16/21 06/17/21 06/17/21 22:59 06:59 14:59 Intake Total 150 / 3040 1000 / 4040 290 / 290 Balance 150 / 3040 1000 / 4040 290 / 290 Weight last 48 hrs Weight 202.847 kg Weight 194.393 kg Weight 201.395 kg Weight 200.941 kg Physical Exam Narrative: Morbidly obese female no edema of legs noted Currently on 2 L nasal cannula No audible stridor or wheezing S1, S2 Abdomen soft Awake and alert Nonfocal neuro exam Pleasant and cooperative during my evaluation Dry cracked lips Data : 06/17/21 00:45 06/17/21 00:45 Micro: Microbiology 06/15/21 20:03 Blood Culture - Preliminary Blood NEGATIVE TO DATE 06/15/21 20:03 Blood Culture - Preliminary Blood NEGATIVE TO DATE 06/15/21 17:55 Urine Culture - Preliminary Urine,Clean Catch Gram Negative Rods A&P Assessment and plan (1) Fibromyalgia syndrome: Status: Acute (2) UTI (urinary tract infection): Status: Acute (3) Sepsis: Status: Acute (4) Elevated troponin: Status: Acute (5) Suspected pulmonary embolism: Status: Acute (6) Elevated brain natriuretic peptide (BNP) level: Status: Acute (7) Hypoxia: Status: Acute (8) ERYN (acute kidney injury): Status: Acute (9) Diarrhea: Status: Acute Qualifiers: Diarrhea type: unspecified type Qualified Code(s): R19.7 - Diarrhea, unspecified (10) Cough: Status: Acute Plan Acute hypoxia Echo report is still pending pulse ox overnight Will need outpatient sleep study Concern for PE with right ventricular dysfunction Finished 48 hours on heparin Because of her BMI VQ scan could not be done We will discharge her on Eliquis ERYN thought to assess her volume status, she has dry cracked lips, dry mucous membranes, her creatinine did improve with IV fluid hydration, will give her low maintenance rate IV fluids today as well UTI concern for pyelonephritis No active signs of sepsis Continue ceftriaxone Cultures negative Afebrile Full code reg diet Diarrhea resolved Covid PCR negative #We will discharge her tomorrow after home O2 evaluation Attestations Medical Necessity Statement*: Anticipating discharge tomorrow discharge tomorrow Time Spent in Patient Care: 30min Coding Level of Care Code Acute Electric Organ Assembler And Checker for Chg Fwd Diagnoses Fibromyalgia syndrome M79.7 UTI (urinary tract infection) N39.0 Sepsis A41.9 Elevated troponin R77.8 Suspected pulmonary embolism R09.89 Elevated brain natriuretic peptide (BNP) level R79.89 Hypoxia R09.02 ERYN (acute kidney injury) N17.9 Diarrhea R19.7 Diarrhea type: unspecified type Cough R05.9
[2021-06-17] MEDS: sodium chloride 0.9% 1,000 ML 100 ML IV ×2 (12:17→19:53)
[2021-06-17] MEDS: heparin drip 25,000 UNIT/500 ML PREMIX 52 UNIT IV ×2 (12:18→21:32)
--- NOTE | 2021-06-17 12:57 | PC.NURSE ---
performed bed changed.
[2021-06-17 14:27] LABS: Partial Thromboplastin Time 72.6 SECONDS (23.9-36.7)
[2021-06-17] MEDS: fluticasone nasal spray 16gm Btl 1 SPRAY INTRANASAL (15:32)
[2021-06-17 20:39] LABS: Partial Thromboplastin Time 56.7 SECONDS (23.9-36.7)
[2021-06-18 02:53] LABS: Basophils # 0.1 10^3/uL (0.0-0.1); Basophils % 0.8 %; Eosinophils # 0.5 10^3/uL (0.0-0.8); Eosinophils % 4.2 %; Hemoglobin 11.9 g/dL (11.5-15.3); Lymphocytes # 2.5 10^3/uL (0.8-4.8); Lymphocytes % 23.6 %; Mean Corpuscular HGB Conc 29.8 g/dL (30.0-36.0); Mean Corpuscular Hemoglobin 30.4 pg (28.0-34.0); Mean Platelet Volume 11.2 fL (7.4-10.4); Monocytes # 0.6 10^3/uL (0.2-0.9); Neutrophils # 6.85 10^3/uL (1.8-7.7); Neutrophils % 64.3 %; Nucleated Red Blood Cells % 0 %; Platelet Count 279 10^3/cmm (130-400); Red Blood Count 3.92 10^6/uL (4.1-5.3); Red Cell Distribution Width 16.9 % (12.1-15.1); White Blood Count 10.7 10^3/uL (4.0-10.0)
[2021-06-18 03:11] LABS: Partial Thromboplastin Time 60.5 SECONDS (23.9-36.7)
[2021-06-18 03:22] LABS: Alanine Aminotransferase 12 U/L (0-33); Albumin Level 3.2 g/dL (3.5-5.2); Alkaline Phosphatase 250 IU/L (35-105); Anion Gap 13.5 (5-19); Aspartate Amino Transferase 21 U/L (0-32); Blood Urea Nitrogen 22 mg/dL (6-20); Calcium 8.9 mg/dL (8.5-10.5); Carbon Dioxide 25 mmol/L (22-29); Chloride 102 mmol/L (98-107); Glomerular Filtration Rate 56.2 mL/min (90-130); Glucose 142 mg/dL (65-115); Osmolality Calculated 288 mOsm/kg (285-295); Potassium 4.5 mmol/L (3.5-5.1); Sodium 136 mmol/L (136-145); Total Bilirubin 0.2 mg/dL (0.15-1.2); Total Protein 7.2 g/dL (6.6-8.7)
[2021-06-18 04:00] VITALS: BP 125/87; PULSE 82; RESP 18; O2SAT 96
[2021-06-18 05:20] VITALS: PULSE 81
[2021-06-18 07:37] VITALS: BP 151/97; PULSE 78; RESP 22; TEMP 36.9; O2SAT 93
[2021-06-18] MEDS: buPROPion XL (24 HR) 300 mg Tablet PO (08:31)
[2021-06-18] MEDS: sertraline 50 mg Tablet 150 MG PO (08:31)
[2021-06-18] MEDS: OXcarbazepine 300 mg Tablet PO (08:31)
[2021-06-18] MEDS: gabapentin 300 mg Capsule 600 MG PO (08:32)
[2021-06-18] MEDS: pantoprazole DR 40 mg Tablet PO (08:32)
[2021-06-18] MEDS: levothyroxine 100 mcg Tablet PO (08:32)
[2021-06-18 09:04] VITALS: BP 151/97; PULSE 78; RESP 22; TEMP 36.9; O2SAT 93
--- NOTE | 2021-06-18 10:41 | P.DS_ITS ---
Discharge Providers Date of Admission: 06/15/21 22:45 Date of Discharge: June 18, 2021 Attending Provider at Admission: Dirk Vick Attending Provider at Discharge: Moon Chowdhury MD Primary Care Provider: RANDY Stevens Diagnoses at Discharge Discharge Diagnosis (1) Fibromyalgia syndrome: Status: Acute (2) UTI (urinary tract infection): Status: Acute (3) Sepsis: Status: Acute (4) Elevated troponin: Status: Acute (5) Suspected pulmonary embolism: Status: Acute (6) Elevated brain natriuretic peptide (BNP) level: Status: Acute (7) Hypoxia: Status: Acute (8) ERYN (acute kidney injury): Status: Acute (9) Diarrhea: Status: Acute Qualifiers: Diarrhea type: unspecified type Qualified Code(s): R19.7 - Diarrhea, unspecified (10) Cough: Status: Acute Reason for Visit Reason for Visit: N/V/D, abd pain Hospital Course Hospital Course This note was done by Dr. Vick 36-year-old lady residential home resident with history of several psychiatric problems, behavioral disturbance, multiple personality disorder, bipolar disorder, depression, fibromyalgia, morbid obesity, poor self-care, other problems, is brought for evaluation from the home where she usually has 24-hour support due to developing 1 week of flank pain, lower abdominal discomfort, dysuria, reported also decreased urinary output, reported also cough and dry heaving, as well as few episodes of diarrhea.? On presentation in ER she is found to have leukocytosis, 20.2, temp is 99.3, with sinus tachycardia, initially 110-113, with fluid resuscitation improved down to 99-97.? Blood pressure 101/67.? ABG 7.44/36.1/86.8/24.5, she has been requiring 3-4 L nasal cannula oxygen although normally not on supplemental oxygen.? Noted sodium 133, chloride 96, BUN 27, creatinine 1.7.? Alk phos chronically elevated, 280.? Baseline troponin elevated 138, 2-hour troponin 104.2.? NT proBNP 16,731.? Albumin 3.? Lipase 26.? bHCG negative. UA with 2+ protein, 3+ blood, 1 urobilinogen, 2+ leukocyte esterase, nitrate negative, 10-15 RBC, too numerous to count WBC, 0-4 squamous arterial cells.? 3+ bacteria.? She and her caregivers do not recall any history of resistant organisms with her prior urinary infection. She is reported to have poor hygiene, does not shower often and requires quite significant prompting to shower.? Does not wash all places during the shower.? She was assessed for possible obstructive uropathy with CT abdomen pelvis without contrast which showed no acute findings, although somewhat limited study due to body habitus. She has received 2 doses of vaccination for COVID-19 in November and December 2020. Hospital course Young female with psychiatric history was admitted for management of UTI, sepsis was ruled out, she was requiring 2 L of oxygen, we were not able to complete VQ scan or CTA chest with adequate lung window to rule out PE considering troponin leakage, right ventricular dysfunction decision was made to treat as NSTEMI and keep her on heparin for 48 hours, after 48 hours she was switched to Eliquis, she did not experience any chest pain, qualified for 2 L of oxygen at the time of discharge, overnight pulse oximeter study done as well, I have recommended outpatient sleep study, Covid PCR negative. Echo showed EF 55 to 60% without significant wall motion abnormality however it had poor ultrasonic windows. Suspicion is high for underlying venous thromboembolism hence decision was made to discharge her on Eliquis. There were no signs of pyelonephritis, she was kept on ceftriaxone. Blood culture negative, urine culture positive for E. coli. Close follow-up appointment given on 06/23. Of note she had similar admission on 09/19/2020 when she was admitted for worsening shortness of breath at that time she was diagnosed with worsening heart failure. Does take Lasix high dose with potassium supplements at home. I do believe she needs CPAP to prevent CHF exacerbation and recurrent admissions. Sleep study prescription given at the time of discharge Physical Exam Narrative: Morbidly obese female 2 L of nasal cannula No audible stridor or wheezing S1, S2 Abdomen soft Awake and alert Nonfocal neuro exam Pleasant and cooperative during my evaluation Dry cracked lips Discharge Data Studies Completed and Pending Completed Studies During Hospitalization Category Date Time Status CT abdomen pelvis wo con [id number] Stat Cat Scan 06/15/21 17:26 Completed CTA chest [CT angio chest PE protcl [id number]] Stat Cat Scan 06/15/21 20:22 Completed XR chest 1V portable [id number] Stat Exams 06/15/21 17:03 Completed CV venous duplex [facility] [id number] Urgent Ultrasound 06/15/21 23:28 Completed CV. echo complete* [id number] Routine Ultrasound 06/16/21 23:28 Completed Pending at discharge Category Date Time Status Cardiac Stress Test MIBI [Sestamibi Stress Test Request Exams 06/17/21 06:48 Ordered ] Routine Blood Culture Stat Lab 06/15/21 20:03 Results OVA and Parasites, Conc and PE Routine Lab 06/15/21 23:28 Uncollected Platelet Count Q2D Lab 06/19/21 04:00 Ordered Stool Culture, Bacterial [Enteric Bacterial Panel by Lab 06/15/21 23:28 Uncollected PCR] Routine Radiology Impressions Chest X-Ray 06/15/21 17:03 IMPRESSION: No acute findings. Abdomen/Pelvis CT 06/15/21 17:26 IMPRESSION: No acute findings. Chest CTA 06/15/21 20:22 IMPRESSION: 1. Extremely limited evaluation for pulmonary embolism due to the limitations described in the body of the report. No large central pulmonary embolism is seen within the main pulmonary arteries, but examination is essentially nondiagnostic. 2. There is an elevated RV/LV ratio greater than 1 which is suggestive of right ventricular dysfunction. Venous Duplex 06/15/21 23:28 IMPRESSION: 1. No evidence of acute right lower extremity DVT. 2. No evidence of acute left lower extremity DVT. Laboratory Results WBC 10.7 10^3/uL (4.0-10.0) H 06/18/21 02:40 RBC 3.92 10^6/uL (4.1-5.3) L 06/18/21 02:40 Hgb 11.9 g/dL (11.5-15.3) 06/18/21 02:40 Hct 40.0 % (37.0-47.0) 06/18/21 02:40 MCV 102.0 fl (81-99) H 06/18/21 02:40 MCH 30.4 pg (28.0-34.0) 06/18/21 02:40 MCHC 29.8 g/dL (30.0-36.0) L 06/18/21 02:40 RDW 16.9 % (12.1-15.1) H 06/18/21 02:40 Plt Count 279 10^3/cmm (130-400) 06/18/21 02:40 MPV 11.2 fL (7.4-10.4) H 06/18/21 02:40 Neut % (Auto) 64.3 % 06/18/21 02:40 Lymph % (Auto) 23.6 % 06/18/21 02:40 Love % (Auto) 6.0 % 06/18/21 02:40 Eos % (Auto) 4.2 % 06/18/21 02:40 Baso % (Auto) 0.8 % 06/18/21 02:40 Neut # (Auto) 6.85 10^3/uL (1.8-7.7) 06/18/21 02:40 Lymph # (Auto) 2.5 10^3/uL (0.8-4.8) 06/18/21 02:40 Love # (Auto) 0.6 10^3/uL (0.2-0.9) 06/18/21 02:40 Eos # (Auto) 0.5 10^3/uL (0.0-0.8) 06/18/21 02:40 Baso # (Auto) 0.1 10^3/uL (0.0-0.1) 06/18/21 02:40 Nucleated RBC % (auto) 0 % 06/18/21 02:40 Nucleated RBCs # 0.0 /100WBC 06/18/21 02:40 PT 15.50 SECONDS (12.1-14.9) H 06/15/21 18:06 INR 1.20 (0.8-1.2) 06/15/21 18:06 APTT 60.5 SECONDS (23.9-36.7) H 06/18/21 02:40 D-Dimer 3.93 ug/mIFEU (0-0.59) H 06/15/21 18:06 Specimen Type Arterial 06/15/21 17:36 Sample Site Radial, left 06/15/21 17:36 ABG pH 7.44 (7.35-7.45) 06/15/21 17:36 ABG pCO2 36.1 mmHg (35-45) 06/15/21 17:36 ABG pO2 86.8 mmHg (80.0-100.0) 06/15/21 17:36 ABG HCO3 24.5 mmol/L (22-26) 06/15/21 17:36 ABG O2 Saturation 97.6 06/15/21 17:36 ABG Base Excess 0.6 mmol/L (-2.0-2.0) 06/15/21 17:36 Tyrese Test Pos 06/15/21 17:36 A-a O2 Gradient 16.3 mmHg (5-10) H 06/15/21 17:36 Hematocrit 42.1 % (37-47) 06/15/21 17:36 Hgb O2 Saturation 93.8 % (95-100) L 06/15/21 17:36 Carboxyhemoglobin 3.3 %THgb (0.4-20.1) 06/15/21 17:36 Methemoglobin 0.6 % (0.4-1.5) 06/15/21 17:36 Total Hemoglobin 13.7 g/dL (12-16) 06/15/21 17:36 Sodium 134.0 mmol/L (131-143) 06/15/21 17:36 Potassium 4.1 mmol/L (3.5-5.0) 06/15/21 17:36 Glucose 108.0 mg/dL (70-115) 06/15/21 17:36 Ionized Calcium 1.1 mmol/L (1.1-1.4) 06/15/21 17:36 O2 Delivery Device Nc 06/15/21 17:36 O2 Liters/Min 4.0 % 06/15/21 17:36 FiO2 36.0 % 06/15/21 17:36 Hand Launderer ID Ed 06/15/21 17:36 Sodium 136 mmol/L (136-145) 06/18/21 02:40 Potassium 4.5 mmol/L (3.5-5.1) 06/18/21 02:40 Chloride 102 mmol/L (98-107) 06/18/21 02:40 Carbon Dioxide 25 mmol/L (22-29) 06/18/21 02:40 Anion Gap 13.5 (5-19) 06/18/21 02:40 BUN 22 mg/dL (6-20) H 06/18/21 02:40 Creatinine 1.1 mg/dL (0.5-0.9) H 06/18/21 02:40 GFR Calculation 56.2 mL/min (90-130) L 06/18/21 02:40 Glucose 142 mg/dL (65-115) H 06/18/21 02:40 Calculated Osmolality 288 mOsm/kg (285-295) 06/18/21 02:40 Lactic Acid 0.7 mmol/L (0.5-2.2) 06/15/21 20:03 Calcium 8.9 mg/dL (8.5-10.5) 06/18/21 02:40 Total Bilirubin 0.2 mg/dL (0.15-1.2) 06/18/21 02:40 AST 21 U/L (0-32) 06/18/21 02:40 ALT 12 U/L (0-33) 06/18/21 02:40 Alkaline Phosphatase 250 IU/L (35-105) H 06/18/21 02:40 Troponin T Baseline 138 ng/L (0-10) H* 06/15/21 17:02 Troponin T 120 Minute 104.2 ng/L (0-10) H 06/15/21 20:03 Delta Troponin T -33.8 ABS# (0-10) L 06/15/21 20:03 Troponin T Hi Sens 6Hr 114.0 ng/L (0-10) H 06/16/21 00:43 Troponin T Hi Sens 6Hr Delta -24.0 ng/L (0-12) L 06/16/21 00:43 NT-Pro-B Natriuret Pep 08963 pg/mL (0-125) H 06/15/21 17:02 Total Protein 7.2 g/dL (6.6-8.7) 06/18/21 02:40 Albumin 3.2 g/dL (3.5-5.2) L 06/18/21 02:40 Globulin 4.0 g/dL (1.3-4.6) 06/18/21 02:40 Lipase 26 U/L (13-60) 06/15/21 17:02 HCG, Qual Negative (Negative) 06/15/21 17:02 Urine Color Yellow (Yellow) 06/15/21 17:55 Urine Appearance Cloudy (CLEAR) 06/15/21 17:55 Urine pH 5 (5-7) 06/15/21 17:55 Ur Specific Bynum 1.020 (1.005-1.030) 06/15/21 17:55 Urine Protein 2+ (Negative) H 06/15/21 17:55 Urine Glucose (UA) Norm (Normal) 06/15/21 17:55 Urine Ketones Negative (Negative) 06/15/21 17:55 Urine Blood 3+ (Negative) H 06/15/21 17:55 Urine Nitrate Negative (Negative) 06/15/21 17:55 Urine Bilirubin Neg (Negative) 06/15/21 17:55 Urine Urobilinogen 1 mg/dL (Negative) H 06/15/21 17:55 Ur Leukocyte Esterase 2+ (Negative) H 06/15/21 17:55 Urine RBC 10-15 /hpf (0-2) H 06/15/21 17:55 Urine WBC Too numerous to cnt /hpf (0-5) H 06/15/21 17:55 Ur Squamous Epith Cells 0-4 /hpf (0-5) H 06/15/21 17:55 Amorphous Sediment Not Reportable 06/15/21 17:55 Urine Bacteria 3+ /hpf (NONE) H 06/15/21 17:55 Urine HCG, Qual Negative (Negative) 06/15/21 17:55 Coronavirus 229E (PCR) Not detected (NOT DETECT) 06/15/21 22:32 SARS-CoV-2 (PCR) Not detected (NOT DETECT) 06/15/21 22:32 Vitals Last Vital Signs Temp 98.5 F 06/18/21 09:04 Pulse 78 06/18/21 09:04 Resp 22 H 06/18/21 09:04 BP 151/97 06/18/21 09:04 Pulse Ox 93 06/18/21 09:04 Discharge Plan Discharge Patient Disposition: Home Condition: Stable Prescriptions: New Jeremiah DVT-PE Treat 30D Start 5 mg (74 tabs) tablets,dose pack See Rx Instructions .ROUTE .COMPLEX Qty: 74 0RF Rx Instructions: orally per package directions levofloxacin 750 mg tablet 750 mg PO DAILY 5 Days Qty: 5 0RF Continued norethindrone (contraceptive) 0.35 mg tablet 0.35 mg PO DAILY Qty: 84 3RF diphenhydramine HCl [Banophen] 25 mg Capsule 25 mg PO Q6H PRN (Reason: Allergy Symptoms) 0RF cholecalciferol (vitamin D3) [Vitamin D3] 25 mcg (1,000 unit) Capsule 25 mcg PO DAILY@08 0RF loperamide 2 mg Capsule 2 mg PO Q8H PRN (Reason: Diarrhea) 0RF desmopressin 0.2 mg Tablet 0.2 mg PO BEDTIME 0RF oxcarbazepine 300 mg Tablet 300 mg PO BID 0RF dicyclomine 10 mg Capsule 10 mg PO TID 0RF Latuda 60 mg Tablet 60 mg PO DAILY 0RF Rx Instructions: must administer with food (at least 350 calories) 1/2 TAB BY MOUTH TWO TIMES DAILY cyclobenzaprine 10 mg Tablet 10 mg PO TID PRN (Reason: MUSCLE SPASMS) 0RF cetirizine 10 mg Tablet 10 mg PO DAILY@08 0RF levothyroxine 100 mcg Tablet 100 mcg PO DAILY@08 0RF famotidine 20 mg Tablet 20 mg PO DAILY@08 0RF hydroxyzine HCl 25 mg Tablet 25 mg PO DAILY PRN (Reason: Anxiety) 0RF fluticasone propionate 50 mcg/actuation [place],Suspension 1 spray INTRANASAL DAILY@14 0RF sertraline 50 mg Tablet 150 mg PO DAILY@08 0RF bupropion HCl 300 mg Tablet Extended Release 24 Hr 300 mg PO DAILY@08 0RF epinephrine 0.3 mg/0.3 mL Syringe See Rx Instructions .ROUTE .COMPLEX 0RF Rx Instructions: INJECT ONE ML NEEDED FOR BEE STING potassium chloride 20 mEq Tablet Extended Release 20 meq PO DAILY@08 0RF gabapentin 600 mg Tablet 600 mg PO TID@08,14,20 0RF Icy Hot Extra Strength See Rx Instructions .ROUTE .COMPLEX 0RF Rx Instructions: aaa bid prn calcium carbonate-vitamin D3 [Oyster Shell Calcium-Vit D3] 500 mg(1,250mg) - 200 unit Tablet 1 tab PO DAILY@08 0RF Changed Lasix 80 mg tablet 80 mg PO DAILY Qty: 60 3RF Discharge Orders: Discharge Order (Routine); Ordered 06/18/21 Ordered By: Moon Chowdhury Other Ambulatory Orders: Sleep Study/Titration (Routine) Timeframe: 3 Days Facility: [facility] - Location: [facility] Ordered By: Moon Chowdhury DME: Oxygen (Order) Location: None Selected Ordered By: Moon Chowdhury Referrals: Fern Aguilar FNP [Primary Care Provider] - 06/23/21 10:45 am Patient Instructions: Levofloxacin (By mouth) (Levaquin, Levaquin Leva-genny), Apixaban (By mouth) (Eliquis), Pulmonary Embolism (DC), Urinary Tract Infection in Women (DC), Using Oxygen at Home (DC), Opioid Safety Activity Restrictions/Additional Instructions: [facility] Centralized Scheduling Department will be calling you with the detaild of your sleep study. If you don't hear from them by Tuesday afternoon, please give them a call at [phone]. Thank you Discharge Attestations Time Spent in Discharge Care*: less than 30 min Status at Discharge: Cognitive status at discharge: cognitively intact , Behavioral status at discharge: cooperative , Quality Metrics Clinical Quality Measures [ No reported AMI, CVA or VTE this stay] Coding Level of Care Code Acute Chg FW DC note Diagnoses Fibromyalgia syndrome M79.7 UTI (urinary tract infection) N39.0 Sepsis A41.9 Elevated troponin R77.8 Suspected pulmonary embolism R09.89 Elevated brain natriuretic peptide (BNP) level R79.89 Hypoxia R09.02 ERYN (acute kidney injury) N17.9 Diarrhea R19.7 Diarrhea type: unspecified type Cough R05.9
[2021-06-18 11:02] VITALS: BP 151/97; PULSE 78; RESP 22; TEMP 36.9; O2SAT 93
[2021-06-18] MEDS: lurasidone 20 mg Tablet 30 MG PO (11:11)
[2021-06-18] MEDS: dicyclomine 10 mg Capsule PO (11:12)
--- NOTE | 2021-06-18 12:56 | PC.NURSE ---
discharge instructions given and explained to pt and cg.they verb understanding.discharged via w/c to exit at this time.
== END 2021-06-18 12:55 | disposition home or self-care (01) | DRG 689 ==
LOC: ER 22:14 → CSU 22:57
PROVIDERS: Family Medicine; Physician Assistant; Admitting Provider Internal Medicine; Emergency Provider Emergency Medicine; PCP Nurse Practitioner Family; Visit Provider Internal Medicine
DX: N39.0 Urinary tract infection, site not specified (principal); I26.99 Other pulmonary embolism without acute cor pulmonale; I21.4 Non-ST elevation (NSTEMI) myocardial infarction; Z68.45 Body mass index [BMI] 70 or greater, adult; N17.9 Acute kidney failure, unspecified; F31.9 Bipolar disorder, unspecified; M79.7 Fibromyalgia; E03.9 Hypothyroidism, unspecified; E66.01 Morbid (severe) obesity due to excess calories; M19.90 Unspecified osteoarthritis, unspecified site; F17.210 Nicotine dependence, cigarettes, uncomplicated; F60.9 Personality disorder, unspecified; R19.7 Diarrhea, unspecified; G47.33 Obstructive sleep apnea (adult) (pediatric); R09.02 Hypoxemia; B96.20 Unspecified Escherichia coli [E. coli] as the cause of diseases classified elsewhere
CPT/HCPCS: 36415; 36600; 71045; 71275; 74176; 80051; 80053; 81001; 81025; 82330; 82805; 83605; 83690; 83880; 84484; 84703; 85025; 85378; 85610; 85730; 87040; 87077; 87086; 87186; 87635; 93005; 93306; 93970; 94664; 96365; 96366; 96367; 96375; 99285; J0696; J1644; J7030; J7040; Q9967

== ENCOUNTER 2021-07-22 20:00 | Outpatient (CLI) | payer MEDICAID, SELFPAY | END 2021-07-22 20:01 | disposition home or self-care (01) | LOC: SLEEP 07-23 06:05 | PROVIDERS: PCP Nurse Practitioner Family; Visit Provider Internal Medicine | DX: G47.33 Obstructive sleep apnea (adult) (pediatric) (principal) | CPT/HCPCS: 95811 ==

== ENCOUNTER → 2021-09-10 14:23 | Outpatient (BNVA) | payer MEDICAID, SELFPAY | PROVIDERS: PCP Nurse Practitioner Family; Visit Provider Urology | DX: N39.44 Nocturnal enuresis (principal) | CPT/HCPCS: 99213 ==

== ENCOUNTER 2021-11-26 11:36 | Emergency (ER) | payer MEDICAID, SELFPAY ==
[2021-11-26] VITALS (11 sets, daily range): BP systolic 77–161; BP diastolic 50–122; PULSE 72–103; RESP 16–20; TEMP 36.6–36.7; O2SAT 70–97; BMI 74.9
--- NOTE | 2021-11-26 11:52 | ECG_ITS ---
[facility] Test Date: 2021-11-26 Pat Name: Deann Vega Department: Room: Gender: Female Certified Rehabilitation Counselor: : 1985 Requested By: Miki Augustin Order Number: [id number] Fitzgerald MD: Hilda Chun M.D. Measurements Intervals [place] Rate: 94 P: 49 AR: 153 QRS: 39 QRSD: 120 T: -8 QT: 356 QTc: 447 Interpretive Statements SINUS RHYTHM POSSIBLE RIGHT VENTRICULAR CONDUCTION DELAY [RSR (QR) IN V1/V2] INTERPRETATION BASED ON A DEFAULT AGE OF 40 YEARS Compared to ECG 06/15/2021 22:17:36 T-wave abnormality no longer present Possible ischemia no longer present Electronically Signed On 11-27-2021 6:19:33 CDT by Hilda Chun M.D. [id number] f
--- NOTE | 2021-11-26 12:22 | XR_ITS ---
WS: [id number] Portable AP upright chest, 11/26/2021 Clinical Data: sob/cp Comparison: Portable chest, 06/15/2021. Findings: No nodules, masses or effusions are seen. The heart is normal. The pulmonary vascularity is not increased. No pneumonia or pneumothorax is seen. XR/XR chest 1V portable [id number] Impression: Negative chest.
--- NOTE | 2021-11-26 12:23 | ED_ITS ---
HPI - Chest Pain General: Chief Complaint: Chest Pain Stated Complaint: Swelling of legs Time Seen by Provider: 11/26/21 12:09 Source: patient Mode of arrival: ambulatory Limitations: no limitations History of Present Illness: This patient was sent to the emergency department from her primary care office. The patient has a longstanding history of congestive heart failure as well as other multiple somatic and other medical problems who states over the past couple weeks she has had some chest pain pa rticular in the left side symptoms seemingly brought on at times by exertion and seemingly at other times by taking a deep breath. She also states that she had some increasing pain in her left side and occasional numbness. She denies any inability to move. She denies any difficulty with speech. She denies headache. She also has a history of sounds like urge incontinence. She states that if s he does not get to the bathroom in time she will have an accident. She does take Lasix on a regular basis for lower extremity edema as well as her congestive heart failure. She denies any fevers or chills. She denies any nausea vomiting or diarrhea. MD complaint: chest pain Onset: during rest and during exertion Pain location: left chest Exacerbating factors: inspiration and palpation Associated symptoms: Deny abdominal pain, fever(s), nausea, palpitations or vomiting Risk Factors: Coronary artery disease risk factors: smoking history and hypertension Review of Systems Const: Denies: fever(s), chills or change in weight Eyes: Denies: change in vision ENMT: Denies: odynophagia, mouth pain, nasal discharge or nasal congestion Card: Reports: chest pain, edema and swelling of feet/ankles; Denies: palpitations or irregular heart rhythm Resp: Denies: productive cough, non-productive cough or wheezing GI: Denies: abdominal pain, nausea, vomiting or diarrhea : Reports: urinary urgency; Denies: flank pain, difficulty voiding, dysuria or hematuria Musc: Reports: back pain, extremity pain and extremity swelling; Denies: neck pain Skin/Breast: Denies: rash or pruritus Neuro: Denies: headache(s), numbness in extremities, weakness in extremities, frequent falls or Slurred speech present Endo: Reports: polyuria PFS ED PFSH: Medical History Bipolar disorder Cellulitis Depression Elevated brain natriuretic peptide (BNP) level Fibromyalgia syndrome Hypothyroidism [facility] endocrinology--Dr Haider Hypoxia Leg pain Morbid obesity Multiple personality disorder No pertinent past medical history neghx: htn,dm,dvt/pe PCP: Kiesha Aguilar Nocturnal enuresis Nocturnal polyuria Osteoarthritis Surgical History H/O laparoscopy (~2010) treatment of ovarian cysts; performed in [place] History of cholecystectomy 2017-lap History of colonoscopy with polypectomy 2018 History of dental surgery History of placement of ear tubes History of tonsillectomy and adenoidectomy Family History Grandmother Breast cancer Maternal--dx age unknown Diabetes Maternal Hypertension Maternal Mother Breast cancer dx age 40's ; unknown if hormone receptive Thyroid disease Grandfather No problems noted. Sister Thyroid disease Denies family history of Colon cancer Ovarian cancer Hypercholesteremia Uterine cancer Stroke Social History Smoking and tobacco status: current every day smoker Alcohol intake: current Alcohol intake frequency: holidays/special occasions only Marital status: Single Current occupational status: disabled History of recent travel: No Physical Exam Narrative: EXAM NARRATIVE: Patient's noted to be alert and cooperative. BMI is in excess of 35. Speech is goal-directed. Const: COMMON NORMALS: no acute distress and patient oriented x3 GENERAL APPEARANCE: cooperative NUTRITIONAL APPEARANCE: obese and overweight HENMT: COMMON NORMALS: normocephalic, atraumatic, Normal nasal mucous membranes and turbinates present and moist oral mucous membranes HEAD & SCALP: normocephalic and atraumatic NOSE: Normal nasal mucous membranes and turbinates present Eye: COMMON NORMALS: Equal, round and reactive pupils present, EOMs intact bilaterally and conjunctivae normal CONJUNCTIVA: Yes conjunctivae normal PUPIL: Yes Equal, round and reactive pupils present Neck/C-Spine: COMMON NORMALS: full ROM, no lymphadenopathy, no JVD and No carotid bruits Chest: COMMONS NORMALS: normal inspection of the chest OTHER: Tenderness to palpation around the rib cage bilaterally. Resp: COMMON NORMALS: normal respiratory effort, No retractions, No use of accessory muscles and clear to auscultation bilaterally EFFORT & INSPECTION: Yes able to speak in complete sentences AUSCULTATION: clear to auscultation bilaterally Cardio: COMMON NORMALS: no JVD, regular rate, regular rhythm, S2 normal heart sound present, No murmurs present (Cardio) and Peripheral pulses 2+ throughout RATE: regular rate RHYTHM: regular rhythm HEART SOUNDS: S2 normal heart sound present PERIPHERAL PULSES: Peripheral pulses 2+ throughout GI: COMMON NORMALS: Soft to palpation and non-tender INSPECTION: Yes central obesity PALPATION: Yes Soft to palpation Back/Pelvis: COMMON NORMALS: thoracic and lumbar spine normal to inspection OTHER: She has exquisite tenderness to palpation of parathoracic soft tissues. No ecchymosis noted. No skin rashes. No subcutaneous emphysema. Mere touch of the skin of her thoracic region reproduces subjective symptoms. Extremity: COMMON NORMALS: capillary refill normal and no calf tenderness N ARRATIVE EXTREMITY EXAM: Notable both lower extremities have hypertrophy of the skin with ready discolored station of the skin from approximately mid calf distally. There is no open sores or weeping. She has localized tenderness in the same areas. She has pretibial and bilateral edema. Neuro: COMMON NORMALS: patient oriented x3, moves all extremities, no focal motor deficits and no sensory deficits noted CRANIAL NERVES: Yes CN normal except as noted SPEECH: speech normal Psych: COMMON NORMALS: mental status grossly normal Skin: COMMON NORMALS: no wounds and turgor normal NARRATIVE SKIN EXAM: Ready hypertrophy of the skin of both lower extremities from mid calf distally noted as above GENERAL SKIN EXAM: turgor normal Course Reevaluation(s): Reevaluation #1: Patient remained stable. Vital signs reassuring. Bedside ultrasound was used to visualize the left leg at the trifurcation in the popliteal space as well as the proximal deep veins. Using linear transducer deep venous system was visualized as noted above. There was no areas of noncompressibility noted consistent with a low likelihood of a DVT at this time. Should note that she is exquisitely subjective Hoang tender in any location that you place any kind of pressure with the ultrasound probe whether it be over vascular structures or even just soft tissue. There is no other focal findings such as erythema, abscess etc. Time: 14:17 Reevaluation #2: Upon entering the room the patient was observed to be watching television as well as engage in using her tablet. She did not appear to be uncomfortable. Repeat examination revealed no change or new findings. I shared with her the results of her work-up today and the reassuring nature. Discussed potential etiologies of her symptoms and suggested perhaps a lidocaine topical patch may give her some relief. She voiced understanding. She was appreciative of care. Time: 16:16 Vital Signs: Vital signs: Vital Signs Temperature 97.9 F 11/26/21 11:42 Pulse Rate 103 H 11/26/21 11:42 Respiratory Rate 20 H 11/26/21 11:42 Blood Pressure 159/100 11/26/21 11:42 Pulse Oximetry 92 11/26/21 11:42 MDM - Chest Pain Medical Decision Making Patient with a history of fibromyalgia but also with a history of congestive heart failure and dependent edema presents with various somatic complaints sent here from her primary care office. She was primarily concerned because of truncal and chest pain. The symptoms seem to be reproducible on clinical examination but due diligence was undertaken. Lower extremity ultrasound of the extremity that she complained of discomfort revealed no evidence of noncompressibility making thromboembolic disease unlikely. Serial troponins as well as serial EKGs were also reassuring. Chest x-ray is reassuring as well. Her clinical picture does not suggest a likely serious etiology to her symptoms such as thromboembolic disease, pneumonia, ACS etc. Seems most consistent with her chronic pain syndrome and fibromyalgia. She is stable at this time without any evidence of additional observation and/or prolonged testing would be efficacious. To be discharged on topical therapy with follow-up in the emergen cy department should she develop new symptoms otherwise routine follow-up with her primary care office. Medical Records I reviewed the patient's medical records. Lab Data I reviewed the patient's lab results. : 11/26/21 12:53 11/26/21 13:29 Radiology Impressions Chest X-Ray 11/26/21 12:22 Impression: Negative chest. Laboratory Results WBC 13.1 10^3/uL (4.0-10.0) H 11/26/21 12:53 RBC 4.49 10^6/uL (4.1-5.3) 11/26/21 12:53 Hgb 14.1 g/dL (11.5-15.3) 11/26/21 12:53 Hct 44.2 % (37.0-47.0) 11/26/21 12:53 MCV 98.4 fl (81-99) 11/26/21 12:53 MCH 31.4 pg (28.0-34.0) 11/26/21 12:53 MCHC 31.9 g/dL (30.0-36.0) 11/26/21 12:53 RDW 15.1 % (12.1-15.1) 11/26/21 12:53 Plt Count 275 10^3/cmm (130-400) 11/26/21 12:53 MPV 12.4 fL (7.4-10.4) H 11/26/21 12:53 Neut % (Auto) 68.3 % 11/26/21 12:53 Lymph % (Auto) 23.4 % 11/26/21 12:53 [place] % (Auto) 5.3 % 11/26/21 12:53 Eos % (Auto) 2.0 % 11/26/21 12:53 Baso % (Auto) 0.6 % 11/26/21 12:53 Neut # (Auto) 8.98 10^3/uL (1.8-7.7) H 11/26/21 12:53 Lymph # (Auto) 3.1 10^3/uL (0.8-4.8) 11/26/21 12:53 [place] # (Auto) 0.7 10^3/uL (0.2-0.9) 11/26/21 12:53 Eos # (Auto) 0.3 10^3/uL (0.0-0.8) 11/26/21 12:53 Baso # (Auto) 0.1 10^3/uL (0.0-0.1) 11/26/21 12:53 Nucleated RBC % (auto) 0 % 11/26/21 12:53 Nucleated RBCs # 0.0 /100WBC 11/26/21 12:53 Sodium 140 mmol/L (136-145) 11/26/21 13:29 Potassium 4.0 mmol/L (3.5-5.1) 11/26/21 13:29 Chloride 98 mmol/L (98-107) 11/26/21 13:29 Carbon Dioxide 30 mmol/L (22-29) H 11/26/21 13:29 Anion Gap 16.0 (5-19) 11/26/21 13:29 BUN 15 mg/dL (6-20) 11/26/21 13:29 Creatinine 0.9 mg/dL (0.5-0.9) 11/26/21 13:29 GFR Calculation 70.8 mL/min (90-130) L 11/26/21 13:29 Glucose 94 mg/dL (65-115) 11/26/21 13:29 Calculated Osmolality 291 mOsm/kg (285-295) 11/26/21 13:29 Calcium 9.4 mg/dL (8.5-10.5) 11/26/21 13:29 Total Bilirubin 0.2 mg/dL (0.15-1.2) 11/26/21 13:29 AST 13 U/L (0-32) 11/26/21 13:29 ALT 10 U/L (0-33) 11/26/21 13:29 Alkaline Phosphatase 203 U/L (35-105) H 11/26/21 13:29 Troponin T Baseline 8 ng/L (0-10) 11/26/21 12:53 Troponin T 120 Minute 7.53 ng/L (0-10) 11/26/21 15:09 NT-Pro-B Natriuret Pep 178 pg/mL (0-125) H 11/26/21 13:29 Total Protein 7.3 g/dL (6.6-8.7) 11/26/21 13:29 Albumin 3.7 g/dL (3.5-5.2) 11/26/21 13:29 Globulin 3.6 g/dL (1.3-4.6) 11/26/21 13:29 Urine Color Yellow (Yellow) 11/26/21 12:42 Urine Appearance Clear (CLEAR) 11/26/21 12:42 Urine pH 7 (5-7) 11/26/21 12:42 Ur Specific [place] 1.010 (1.005-1.030) 11/26/21 12:42 Urine Protein Neg (Negative) 11/26/21 12:42 Urine Glucose (UA) Norm (Normal) 11/26/21 12:42 Urine Ketones Negative (Negative) 11/26/21 12:42 Urine Blood Neg (Negative) 11/26/21 12:42 Urine Nitrate Negative (Negative) 11/26/21 12:42 Urine Bilirubin Neg (Negative) 11/26/21 12:42 Urine Urobilinogen Norm mg/dL (Negative) 11/26/21 12:42 Ur Leukocyte Esterase Negative (Negative) 11/26/21 12:42 EKG Data EKG 1: EKG interpretation time: 12:35 Interpretation: Resting EKG reveals normal ventricular rate of 94 bpm consistent with sinus rhythm. She has normal LA interval and QRS duration and QTc interval. Normal ST-T wave segments noted at this time without any acute changes. Nonspecific ST-T wave changes noted in the precordial leads and previous EKGs are not present today. EKG 2: I personally reviewed and interpreted this EKG as follows: EKG interpretation time: 14:30 Interpretation: Second EKG this visit reveals a ventricular rate of 77 bpm. Normal intervals, normal axis, no acute ST-T wave changes. No change from previous tracing this visit Discharge Plan Discharge Patient Disposition: Home Clinical Impression: Musculoskeletal pain, History of fibromyalgia, Edema, peripheral Condition: Stable Prescriptions: New lidocaine [Lidoderm] 5 % adhesive patch,medicated 1 patch topical Q24H Qty: 15 0RF Rx Instructions: leave on most painful area for up to 12 hrs No Action Eucerin Cream 1 applic topical BID PRN (Reason: unknown) lidocaine [Salonpas (lidocaine)] 4 % adhesive patch,medicated 1 patch topical DAILY PRN (Reason: Pain) diphenhydramine HCl [Banophen] 25 mg Capsule 25 mg PO Q6H PRN (Reason: Allergy Symptoms) loperamide 2 mg Capsule 2 mg PO Q8H PRN (Reason: Diarrhea) desmopressin 0.2 mg Tablet 0.2 mg PO BEDTIME@20 oxcarbazepine 300 mg Tablet 300 mg PO BID@08,20 dicyclomine 10 mg Capsule 10 mg PO TID PRN (Reason: Abdominal Discomfort) Latuda 60 mg Tablet 30 mg PO BID@08,20 Rx Instructions: must administer with food (at least 350 calories) cyclobenzaprine 10 mg Tablet 10 mg PO TID PRN (Reason: MUSCLE SPASMS) cetirizine 10 mg Tablet 10 mg PO DAILY@08 levothyroxine 100 mcg Tablet 100 mcg PO DAILY@08 famotidine 20 mg Tablet 20 mg PO DAILY@08 hydroxyzine HCl 25 mg Tablet 25 mg PO BEDTIME@20 fluticasone propionate 50 mcg/actuation [place],Suspension 1 spray INTRANASAL DAILY@14 sertraline 50 mg Tablet 150 mg PO DAILY@08 bupropion HCl 300 mg Tablet Extended Release 24 Hr 300 mg PO DAILY@08 potassium chloride 20 mEq Tablet Extended Release 20 meq PO DAILY@08 gabapentin 600 mg Tablet 600 mg PO TID@08,14,20 Icy Hot Extra Strength See Rx Instructions .ROUTE .COMPLEX Rx Instructions: aaa bid prn calcium carbonate-vitamin D3 [Oyster Shell Calcium-Vit D3] 500 mg(1,250mg) - 200 unit Tablet 1 tab PO DAILY@08 Vitamin D2 1,250 mcg (50,000 unit) capsule 50,000 unit PO Q7D Rx Instructions: on fri Eliquis 5 mg tablet 5 mg PO BID@08,20 Advanced Probiotic 625 mg (10 billion cell) capsule 1 cap PO BID@08,20 furosemide 40 mg tablet 40 mg PO DAILY@08 Neosporin (trh-cec-usauw) 3.5mg-400 unit- 5,000 unit/gram Ointment 1 applic TOPICAL BID PRN (Reason: unknown) EpiPen 2-Norm 0.3 mg/0.3 mL Auto-Injector 0.3 mg IM Q4H PRN (Reason: Allergic Reaction) norethindrone (contraceptive) 0.35 mg tablet 0.35 mg PO DAILY@08 Discharge Orders: Discharge ED (Routine); Ordered 11/26/21 Ordered By: Miki Augustin Referrals: Fern Aguilar FNP [Primary Care Provider] - Discharge Diet: Usual diet Discharge Activity: Increase activity as tolerated Patient Instructions: Opioid Safety Activity Restrictions/Additional Instructions: Continue your usual medications. We have provided a air hole driller term patch to use on your mid back to help some of your trunk pain. If your symptoms do not improve, new symptoms develop or you have any other concerns at any time return to this or the nearest emergency department. Follow-up with your regular primary child care teacher in the next 10 to 14 days. Coding Level of Care Code ED [employer] Salesperson for [employer] Exam Comprehensive
[2021-11-26 13:03] LABS: Add Urine Microscopic? NO; Charge for UA Resulting for Rev
[2021-11-26 13:14] LABS: Basophils # 0.1 10^3/uL (0.0-0.1); Basophils % 0.6 %; Eosinophils # 0.3 10^3/uL (0.0-0.8); Hematocrit 44.2 % (37.0-47.0); Hemoglobin 14.1 g/dL (11.5-15.3); Lymphocytes # 3.1 10^3/uL (0.8-4.8); Lymphocytes % 23.4 %; Mean Corpuscular HGB Conc 31.9 g/dL (30.0-36.0); Mean Corpuscular Hemoglobin 31.4 pg (28.0-34.0); Mean Corpuscular Volume 98.4 fl (81-99); Mean Platelet Volume 12.4 fL (7.4-10.4); Monocytes # 0.7 10^3/uL (0.2-0.9); Monocytes % 5.3 %; Neutrophils # 8.98 10^3/uL (1.8-7.7); Neutrophils % 68.3 %; Nucleated Red Blood Cells % 0 %; Platelet Count 275 10^3/cmm (130-400); Red Blood Count 4.49 10^6/uL (4.1-5.3); Red Cell Distribution Width 15.1 % (12.1-15.1); White Blood Count 13.1 10^3/uL (4.0-10.0)
--- NOTE | 2021-11-26 13:14 | PC.PHAR ---
pts caregiver verified pts medications-states pt has all 8am meds-ext med history shows mobic 7.5mg daily filled 11/09/21 30d/s pts caregiver states pt not taking
[2021-11-26 13:27] LABS: Troponin(5th) Baseline 8 ng/L (0-10)
[2021-11-26 13:27] LABS: Bilirubin Urine Neg (Negative); Blood Urine Neg (Negative); Glucose Urine UA Norm (Normal); Ketones Urine Negative (Negative); Leukocyte Esterase Urine Negative (Negative); Nitrate Urine Negative (Negative); Protein Urine Neg (Negative); Urine Appearance Clear (CLEAR); Urine Color Yellow (Yellow); Urobilinogen Urine Norm (Negative); pH Urine 7 (5-7)
[2021-11-26 14:16] LABS: Alanine Aminotransferase 10 U/L (0-33); Albumin Level 3.7 g/dL (3.5-5.2); Alkaline Phosphatase 203 U/L (35-105); Aspartate Amino Transferase 13 U/L (0-32); Blood Urea Nitrogen 15 mg/dL (6-20); Calcium 9.4 mg/dL (8.5-10.5); Carbon Dioxide 30 mmol/L (22-29); Chloride 98 mmol/L (98-107); Globulin 3.6 g/dL (1.3-4.6); Glomerular Filtration Rate 70.8 mL/min (90-130); Glucose 94 mg/dL (65-115); NT Pro B Type Natriuretic Pept 178 pg/mL (0-125); Osmolality Calculated 291 mOsm/kg (285-295); Sodium 140 mmol/L (136-145); Total Bilirubin 0.2 mg/dL (0.15-1.2); Total Protein 7.3 g/dL (6.6-8.7)
--- NOTE | 2021-11-26 14:27 | ECG_ITS ---
[facility] Test Date: 2021-11-26 Pat Name: Deann Vega Department: Room: Gender: Female Audio Director: : 1985 Requested By: Miki Augustin Order Number: [id number] Amilcar MD: Hilda Chun M.D. Measurements Intervals [place] Rate: 77 P: 21 OK: 151 QRS: 31 QRSD: 122 T: 1 QT: 372 QTc: 421 Interpretive Statements SINUS RHYTHM POSSIBLE RIGHT VENTRICULAR CONDUCTION DELAY [RSR (QR) IN V1/V2] Compared to ECG 11/26/2021 11:52:54 No significant changes Electronically Signed On 11-27-2021 6:29:34 CDT by Hilda Chun M.D. [id number]
[2021-11-26 16:02] LABS: Troponin 5 2HR 7.53 ng/L (0-10)
[2021-11-26] MEDS: lidocaine 5% Patch 1 PATCH TOPICAL (17:21)
[2021-11-26 18:12] LABS: Troponin 5 2HR Delta 1.53 ABS# (0-10)
== END 2021-11-26 17:34 | disposition home or self-care (01) ==
PROVIDERS: Emergency Provider Emergency Medicine; PCP Nurse Practitioner Family
DX: R60.0 Localized edema (principal); M79.18 Myalgia, other site; M79.7 Fibromyalgia; I50.9 Heart failure, unspecified; E66.01 Morbid (severe) obesity due to excess calories; Z68.45 Body mass index [BMI] 70 or greater, adult
CPT/HCPCS: 36415; 71045; 80053; 81003; 83880; 84484; 85025; 93005; 99285

== ENCOUNTER → 2022-01-19 11:10 | Outpatient (BNVA) | payer MEDICAID, SELFPAY | PROVIDERS: PCP Nurse Practitioner Family; Visit Provider Nurse Practitioner Women's Health | DX: N89.8 Other specified noninflammatory disorders of vagina (principal); Z01.419 Encounter for gynecological examination (general) (routine) without abnormal findings; Z30.41 Encounter for surveillance of contraceptive pills | CPT/HCPCS: 87070; 87205 ==

== ENCOUNTER 2022-02-12 14:20 | Emergency (ER) | payer MEDICAID, SELFPAY ==
[2022-02-12 14:56] VITALS: BP 152/85; PULSE 91; RESP 20; TEMP 36.2; O2SAT 79
--- NOTE | 2022-02-12 15:25 | XRR_ITS ---
PROCEDURE INFORMATION: Exam: XR Chest Exam date and time: 02/12/2022 4:33 PM Age: 36 years old Clinical indication: Dyspnea and shortness of breath TECHNIQUE: Imaging protocol: Radiologic exam of the chest. Views: 1 view. COMPARISON: CR XR chest 1V portable [id number] 11/26/2021 12:41 PM FINDINGS: Lungs: Unremarkable. No consolidation. Pleural spaces: Unremarkable. No pleural effusion. No pneumothorax. Heart/Mediastinum: Unremarkable. No cardiomegaly. Bones/joints: Unremarkable. XR/XR chest 1V portable [id number] IMPRESSION: No acute radiographic findings.
--- NOTE | 2022-02-12 15:25 | CTR_ITS ---
PROCEDURE INFORMATION: Exam: CT Head Without Contrast Exam date and time: 02/12/2022 3:35 PM Age: 36 years old Clinical indication: Pain; Headache; Additional info: Headache/on anticoagulants TECHNIQUE: Imaging protocol: Computed tomography of the head without contrast. Axial, coronal and sagittal reformatted images were created and reviewed. Radiation optimization: All CT scans at this facility use at least one of these dose optimization techniques: automated exposure control; mA and/or kV adjustment per patient size (includes targeted exams where dose is matched to clinical indication); or iterative reconstruction. COMPARISON: No relevant prior studies available. RADIATION DOSE METRICS: Total DLP (mGy-cm): 1147.92 FINDINGS: Brain: No CT evidence of acute intracranial hemorrhage or acute territorial infarction. No significant mass effect or midline shift. Basal cisterns patent. Cerebral ventricles: Normal in size and configuration. Paranasal sinuses: Unremarkable. No fluid levels. Mastoid air cells: Grossly unremarkable. Bones/joints: No acute osseous abnormality. Soft tissues: Grossly unremarkable. CT/CT head wo con* [id number] IMPRESSION: No CT evidence of acute intracranial pathology.
--- NOTE | 2022-02-12 15:26 | ED_ITS ---
HPI - SOB/Dyspnea General: Chief Complaint: Shortness of Breath/Dyspnea Stated Complaint: headache Time Seen by Provider: 02/12/22 15:19 Source: patient Mode of arrival: EMS History of Present Illness: HPI Narrative: 36-year-old female who presents to the emergency room with complaints of being excessively tired. Evidently she was difficult to arouse this morning at the [facility] where she is at. Reading her previous notes that she is on Eliquis due to the concern for thromboembolism. Because of her BMI they were unable to get CT a of the chest or VQ scan and clinically made the diagnosis of probable PE earlier this year she was discharged home on 2 L by nasal cannula and on Eliquis. Patient has a history of multiple psychiatric diagnoses. She lives in a monitored setting. Caregivers manage all of her medications. He is not having any chest pain significant abdominal pain no vomiting she has had some loose stools. MD elicited complaint: shortness of breath and cough Onset (ago): hour(s) Timing: constant Severity: mild Exacerbating factors: lying flat and exertion Relieving factors: rest Associated symptoms: Reports abdominal pain and cough; Deny chest congestion, chest pain, diaphoresis, dizziness, extremity pain, fever(s), hemoptysis, lightheadedness, myalgias, nausea, orthopnea, palpitations, paresthesias, polydipsia, polyuria, rash, sense of impending doom, syncope or vomiting Treatment prior to arrival: oxygen Review of Systems Const: Reports: fatigue and malaise; Denies: fever(s), chills or diaphoresis ENMT: Denies: throat pain, ear or mastoid pain, nasal discharge or nasal congestion Card: Denies: chest pain, palpitations, lightheadedness, syncope or orthopnea Resp: Denies: dyspnea, productive cough, non-productive cough, hemoptysis or chest congestion GI: Reports: abdominal pain; Denies: nausea or vomiting : Denies: flank pain, difficulty voiding, dysuria, urinary frequency or urinary urgency Musc: Denies: extremity pain Skin/Breast: Denies: rash or pruritus Neuro: Denies: dizziness Endo: Denies: polyuria or polydipsia PFS ED PFSH: Medical History Bipolar disorder Cellulitis Depression Elevated brain natriuretic peptide (BNP) level Fibromyalgia syndrome Hypothyroidism [facility] endocrinology--Dr Haider Hypoxia Leg pain Morbid obesity Multiple personality disorder No pertinent past medical history neghx: htn,dm,dvt/pe PCP: Kiesha Aguilar Nocturnal enuresis Nocturnal polyuria Osteoarthritis Surgical History H/O laparoscopy (~2010) treatment of ovarian cysts; performed in [place] History of cholecystectomy 2017-lap History of colonoscopy with polypectomy 2018 History of dental surgery History of placement of ear tubes History of tonsillectomy and adenoidectomy Family History Grandmother Breast cancer Maternal--dx age unknown Diabetes Maternal Hypertension Maternal Mother Breast cancer dx age 40's ; unknown if hormone receptive Thyroid disease Grandfather No problems noted. Sister Thyroid disease Denies family history of Colon cancer Ovarian cancer Hypercholesteremia Uterine cancer Stroke Social History Smoking and tobacco status: current every day smoker Physical Exam Const: COMMON NORMALS: no acute distress GENERAL APPEARANCE: cooperative and comfortable ORIENTATION/CONSCIOUSNESS: Yes awake, Yes oriented to person, Yes oriented to place and Yes oriented to time HENMT: COMMON NORMALS: normocephalic, atraumatic and hearing grossly normal bilaterally HEAD & SCALP: normocephalic and atraumatic Resp: COMMON NORMALS: normal respiratory effort, No retractions, No use of accessory muscles and clear to auscultation bilaterally AUSCULTATION: clear to auscultation bilaterally Cardio: COMMON NORMALS: regular rate, regular rhythm and No murmurs present (Cardio) RATE: regular rate RHYTHM: regular rhythm GI: COMMON NORMALS: Soft to palpation and No hepatosplenomegaly present AUSCULTATION: Yes normoactive bowel sounds PALPATION: Yes Soft to palpation, No Tenderness to palpation present (GI), No Guarding due to palpation present (GI) and Yes No hepatosplenomegaly present Extremity: COMMON NORMALS: normal to inspection, capillary refill normal, no clubbing, cyanosis or edema, no calf tenderness and no pedal edema Neuro: SENSORIUM/ORIENTATION: Yes oriented to person, Yes oriented to place and Yes oriented to time Skin: COMMON NORMALS: no rashes or lesions noted GENERAL SKIN EXAM: no rashes or lesions noted Course Vital Signs: Vital signs: Vital Signs Temperature 97.1 F L 02/12/22 14:56 Pulse Rate 94 02/12/22 18:50 Respiratory Rate 18 02/12/22 18:50 Blood Pressure 145/74 02/12/22 18:50 Pulse Oximetry 95 02/12/22 18:50 Oxygen Delivery Me thod 02/12/22 14:56 MDM - SOB/Dyspnea Medical Decision Making Labs and imaging reviewed. Patient has known pulmonary embolism is already on Eliquis. Blood pressure is adequate. It could use some improvement in control but given the present setting would not recommend changing medications. Labs imaging and EKG all reviewed discussed the patient discharge patient home no change medication follow-up with primary care for further adjustments return if has further problems. Medical Records I reviewed the patient's medical records. Lab Data I reviewed the patient's lab results. 02/12/22 16:13 02/12/22 16:13 Labs/Radiology: Radiology Impressions Chest X-Ray 02/12/22 15:25 IMPRESSION: No acute radiographic findings. Head CT 02/12/22 15:25 IMPRESSION: No CT evidence of acute intracranial pathology. Laboratory Results WBC 11.3 10^3/uL (4.0-10.0) H 02/12/22 16:13 RBC 4.40 10^6/uL (4.1-5.3) 02/12/22 16:13 Hgb 13.4 g/dL (11.5-15.3) 02/12/22 16:13 Hct 44.3 % (37.0-47.0) 02/12/22 16:13 MCV 100.7 fl (81-99) H 02/12/22 16:13 MCH 30.5 pg (28.0-34.0) 02/12/22 16:13 MCHC 30.2 g/dL (30.0-36.0) 02/12/22 16:13 RDW 14.9 % (12.1-15.1) 02/12/22 16:13 Plt Count 269 10^3/cmm (130-400) 02/12/22 16:13 MPV 10.9 fL (7.4-10.4) H 02/12/22 16:13 Neut % (Auto) 71.7 % 02/12/22 16:13 Lymph % (Auto) 19.5 % 02/12/22 16:13 Barron % (Auto) 5.2 % 02/12/22 16:13 Eos % (Auto) 2.5 % 02/12/22 16:13 Baso % (Auto) 0.6 % 02/12/22 16:13 Neut # (Auto) 8.09 10^3/uL (1.8-7.7) H 02/12/22 16:13 Lymph # (Auto) 2.2 10^3/uL (0.8-4.8) 02/12/22 16:13 Barron # (Auto) 0.6 10^3/uL (0.2-0.9) 02/12/22 16:13 Eos # (Auto) 0.3 10^3/uL (0.0-0.8) 02/12/22 16:13 Baso # (Auto) 0.1 10^3/uL (0.0-0.1) 02/12/22 16:13 Nucleated RBC % (auto) 0.2 % 02/12/22 16:13 Nucleated RBCs # 0.0 /100WBC 02/12/22 16:13 Specimen Type Arterial 02/12/22 16:13 Sample Site Radial, left 02/12/22 16:13 ABG pH 7.35 (7.35-7.45) 02/12/22 16:13 ABG pCO2 58.3 mmHg (35-45) H 02/12/22 16:13 ABG pO2 48.1 mmHg (80.0-100.0) L 02/12/22 16:13 ABG HCO3 32.0 mmol/L (22-26) H 02/12/22 16:13 ABG O2 Saturation 84.3 02/12/22 16:13 ABG Base Excess 4.7 mmol/L (-2.0-2.0) H 02/12/22 16:13 Tyrese Test Pos 02/12/22 16:13 A-a O2 Gradient 4.0 mmHg (5-10) L 02/12/22 16:13 Hematocrit 41.6 % (37-47) 02/12/22 16:13 Hgb O2 Saturation 78.5 % (95-100) L 02/12/22 16:13 Carboxyhemoglobin 6.3 %THgb (0.4-20.1) 02/12/22 16:13 Methemoglobin 0.6 % (0.4-1.5) 02/12/22 16:13 Total Hemoglobin 13.6 g/dL (12-16) 02/12/22 16:13 Sodium 143.0 mmol/L (131-143) 02/12/22 16:13 Potassium 4.3 mmol/L (3.5-5.0) 02/12/22 16:13 Glucose 90.0 mg/dL (70-115) 02/12/22 16:13 Ionized Calcium 1.2 mmol/L (1.1-1.4) 02/12/22 16:13 O2 Delivery Device Room air 02/12/22 16:13 FiO2 21.0 % 02/12/22 16:13 Mender Hand ID Cak 02/12/22 16:13 Sodium 139 mmol/L (136-145) 02/12/22 16:13 Potassium 4.5 mmol/L (3.5-5.1) 02/12/22 16:13 Chloride 101 mmol/L (98-107) 02/12/22 16:13 Carbon Dioxide 31 mmol/L (22-29) H 02/12/22 16:13 Anion Gap 11.5 (5-19) 02/12/22 16:13 BUN 14 mg/dL (6-20) 02/12/22 16:13 Creatinine 0.8 mg/dL (0.5-0.9) 02/12/22 16:13 GFR Calculation 81.2 mL/min (90-130) L 02/12/22 16:13 Glucose 91 mg/dL (65-115) 02/12/22 16:13 Calculated Osmolality 288 mOsm/kg (285-295) 02/12/22 16:13 Calcium 9.2 mg/dL (8.5-10.5) 02/12/22 16:13 Total Bilirubin 0.2 mg/dL (0.15-1.2) 02/12/22 16:13 AST 21 U/L (0-32) 02/12/22 16:13 ALT 21 U/L (0-33) 02/12/22 16:13 Alkaline Phosphatase 249 U/L (35-105) H 02/12/22 16:13 NT-Pro-B Natriuret Pep 784 pg/mL (0-125) H 02/12/22 16:13 Total Protein 7.1 g/dL (6.6-8.7) 02/12/22 16:13 Albumin 3.4 g/dL (3.5-5.2) L 02/12/22 16:13 Globulin 3.7 g/dL (1.3-4.6) 02/12/22 16:13 Discharge Plan Discharge Patient Disposition: Home Clinical Impression: Morbid obesity with alveolar hypoventilation, Sleep apnea, Pulmonary embolism Condition: Stable Prescriptions: No Action Eucerin Cream 1 applic topical BID PRN (Reason: unknown) lidocaine [Salonpas (lidocaine)] 4 % adhesive patch,medicated 1 patch topical DAILY PRN (Reason: Pain) norethindrone (contraceptive) 0.35 mg tablet 0.35 mg PO DAILY@08 Qty: 84 3RF fluconazole [Diflucan] 150 mg tablet 150 mg PO ONCE Qty: 1 0RF diphenhydramine HCl [Banophen] 25 mg Capsule 25 mg PO Q6H PRN (Reason: Allergy Symptoms) loperamide 2 mg Capsule 2 mg PO Q8H PRN (Reason: Diarrhea) desmopressin 0.2 mg Tablet 0.2 mg PO BEDTIME@20 oxcarbazepine 300 mg Tablet 300 mg PO BID@08,20 dicyclomine 10 mg Capsule 10 mg PO TID PRN (Reason: Abdominal Discomfort) cetirizine 10 mg Tablet 10 mg PO DAILY@08 levothyroxine 100 mcg Tablet 100 mcg PO DAILY@08 famotidine 20 mg Tablet 20 mg PO DAILY@08 hydroxyzine HCl 25 mg Tablet 25 mg PO BEDTIME@20 fluticasone propionate 50 mcg/actuation [place],Suspension 1 spray INTRANASAL DAILY@14 sertraline 50 mg Tablet 150 mg PO DAILY@08 bupropion HCl 300 mg Tablet Extended Release 24 Hr 300 mg PO DAILY@08 potassium chloride 20 mEq Tablet Extended Release 20 meq PO DAILY@08 gabapentin 600 mg Tablet 600 mg PO TID@08,14,20 calcium carbonate-vitamin D3 [Oyster Shell Calcium-Vit D3] 500 mg(1,250mg) - 200 unit Tablet 1 tab PO DAILY@08 ergocalciferol (vitamin D2) [Vitamin D2] 1,250 mcg (50,000 unit) capsule 50,000 unit PO Q7D Rx Instructions: on TUESDAY Eliquis 5 mg tablet 5 mg PO BID@08,20 furosemide 40 mg tablet 40 mg PO DAILY@08 Neosporin (xyc-iif-vueec) 3.5mg-400 unit- 5,000 unit/gram Ointment 1 applic TOPICAL BID PRN (Reason: unknown) epinephrine [EpiPen 2-Norm] 0.3 mg/0.3 mL Auto-Injector 0.3 mg IM Q4H PRN (Reason: Allergic Reaction) meloxicam 7.5 mg Tablet 7.5 mg PO DAILY lidocaine 5 % Adhesive Patch,Medicated 1 patch TOPICAL DAILY Rx Instructions: leave on most painful area for up to 12 hrs Icy Rub Gel 1 applic TOPICAL TID Calcium 600 + D(3) 600 mg-10 mcg (400 unit) Tablet 1 tab PO DAILY olopatadine 0.2 % drops 1 drp ophthalmic (eye) DAILY PRN (Reason: Dry Eye(S)) Latuda 80 mg Tablet 40 mg PO BID Rx Instructions: must administer with food (at least 350 calories) Probiotic 3 billion cell Capsule 3,000 mmu cells PO DAILY Rx Instructions: administer with a meal Cough Drops 5.4 mg Lozenge 5.4 mg MUCOUS MEMBRANE Q4H PRN (Reason: Cough) Discharge Orders: Discharge ED (Routine); Ordered 02/12/22 Ordered By: Kalpesh Booth Other Ambulatory Orders: DME: Oxygen (Order) Location: None Selected Ordered By: Kalpesh Booth Referrals: Fern Aguilar FNP [Primary Care Provider] - Discharge Diet: Usual diet Discharge Activity: Increase activity as tolerated Patient Instructions: Opioid Safety, Pain Management Activity Restrictions/Additional Instructions: Case management will make arrangements for you to see pulmonology. Home will deliver oxygen for you to take home this evening. Coding Level of Care Code ED [employer] Guard Supervisor for Luis Carlos Lee
[2022-02-12 16:24] LABS: ABG PCO2 58.3 mmHg (35-45); ABG PH Result 7.35 (7.35-7.45); Arterial Blood Gas Hematocrit 41.6 % (37-47); Base Excess ABG 4.7 mmol/L (-2.0-2.0); Blood Gas Allen Test Pos; Blood Gas Operator Identificat CAK; Blood Gas Sample Site Radial, left; Blood Gas Sample Type Arterial; Carboxyhemoglobin 6.3 %THgb (0.4-20.1); HGB O2 Sat 78.5 % (95-100); Ionized Calcium Level - ABG 1.2 mmol/L (1.1-1.4); Methemoglobin 0.6 % (0.4-1.5); Oxygen Device ROOM AIR; Oxygen Saturation ABG 84.3; PO2 ABG 48.1 mmHg (80.0-100.0); Potassium Level - ABG 4.3 mmol/L (3.5-5.0); Total Hemoglobin 13.6 g/dL (12-16)
[2022-02-12 16:31] LABS: Basophils # 0.1 10^3/uL (0.0-0.1); Basophils % 0.6 %; Eosinophils # 0.3 10^3/uL (0.0-0.8); Eosinophils % 2.5 %; Hematocrit 44.3 % (37.0-47.0); Hemoglobin 13.4 g/dL (11.5-15.3); Lymphocytes # 2.2 10^3/uL (0.8-4.8); Lymphocytes % 19.5 %; Mean Corpuscular HGB Conc 30.2 g/dL (30.0-36.0); Mean Corpuscular Hemoglobin 30.5 pg (28.0-34.0); Mean Corpuscular Volume 100.7 fl (81-99); Mean Platelet Volume 10.9 fL (7.4-10.4); Monocytes # 0.6 10^3/uL (0.2-0.9); Monocytes % 5.2 %; Neutrophils # 8.09 10^3/uL (1.8-7.7); Neutrophils % 71.7 %; Nucleated Red Blood Cells % 0.2 %; Platelet Count 269 10^3/cmm (130-400); Red Cell Distribution Width 14.9 % (12.1-15.1); White Blood Count 11.3 10^3/uL (4.0-10.0)
[2022-02-12 16:56] LABS: Alanine Aminotransferase 21 U/L (0-33); Albumin Level 3.4 g/dL (3.5-5.2); Alkaline Phosphatase 249 U/L (35-105); Anion Gap 11.5 (5-19); Aspartate Amino Transferase 21 U/L (0-32); Blood Urea Nitrogen 14 mg/dL (6-20); Calcium 9.2 mg/dL (8.5-10.5); Carbon Dioxide 31 mmol/L (22-29); Chloride 101 mmol/L (98-107); Globulin 3.7 g/dL (1.3-4.6); Glomerular Filtration Rate 81.2 mL/min (90-130); Glucose 91 mg/dL (65-115); NT Pro B Type Natriuretic Pept 784 pg/mL (0-125); Osmolality Calculated 288 mOsm/kg (285-295); Potassium 4.5 mmol/L (3.5-5.1); Sodium 139 mmol/L (136-145); Total Bilirubin 0.2 mg/dL (0.15-1.2); Total Protein 7.1 g/dL (6.6-8.7)
[2022-02-12 18:50] VITALS: BP 145/74; PULSE 94; RESP 18; O2SAT 95
--- NOTE | 2022-02-15 08:06 | PC.SOCIAL ---
Addendum entered by Cherri Ballard 03/24/22 14:01: hourly shift manager received the following message from [facility] regarding follow up appointment: Spoke with Rubi let her know Dr. Kaplan would like the nurses to review documentation notes so the nurses can let us know where to schedule patient's. That when documentation is done we would be happy to schedule patient. [facility] Front Office removed from item. Original Note: Pulmonology Referral Consult received for pulmonology referral. Referral sent at this time; clinic to contact patient with appt date/time.
== END 2022-02-12 18:50 | disposition home or self-care (01) ==
PROVIDERS: Emergency Provider Family Medicine; PCP Nurse Practitioner Family
DX: E66.2 Morbid (severe) obesity with alveolar hypoventilation (principal); I26.99 Other pulmonary embolism without acute cor pulmonale; G47.30 Sleep apnea, unspecified; Z79.01 Long term (current) use of anticoagulants
CPT/HCPCS: 36415; 36600; 70450; 71045; 80051; 80053; 82330; 82805; 83880; 85025; 99285

== ENCOUNTER 2022-02-19 17:12 | Emergency (ER) | payer MEDICAID, SELFPAY ==
[2022-02-19 17:22] VITALS: BP 132/64; PULSE 85; RESP 16; TEMP 36.7; O2SAT 95; BMI 80.8
--- NOTE | 2022-02-19 19:23 | XRR_ITS ---
PROCEDURE INFORMATION: Exam: XR Chest Exam date and time: 02/19/2022 9:51 PM Age: 36 years old Clinical indication: Shortness of breath; Additional info: SOB TECHNIQUE: Imaging protocol: Radiologic exam of the chest. Views: 1 view. COMPARISON: CR XR chest 1V portable [id number] 02/12/2022 4:33 PM FINDINGS: Lungs: See Heart/Mediastinum finding. Pleural spaces: Unremarkable. No pleural effusion. No pneumothorax. Heart/Mediastinum: Mild cardiomegaly and pulmonary vascular congestion. Bones/joints: Unremarkable. XR/XR chest 1V portable [id number] IMPRESSION: Mild cardiomegaly and pulmonary vascular congestion.
--- NOTE | 2022-02-19 20:41 | W.ED.SOB ---
HPI - SOB/Dyspnea General: Chief Complaint: Shortness of Breath/Dyspnea Stated Complaint: low 02 sent by PCP Time Seen by Provider: 02/19/22 20:40 History of Present Illness: HPI Narrative: Ms Vega is a 36-year-old with complex past medical history including history of clinically diagnosed thromboembolism without ability to obtain verification imaging, psychiatric illness, moderate setting for living with requirement of caregivers presenting to the emergency department due to concern over increased shortness of breath. History is somewhat unclear as she reports approximately 1 week ago presenting to the emergency department for excessive somnolence. The patient reports believing that she had carbon monoxide poisoning however I do not see in the incomplete notes or laboratory studies evidence supporting this. She endorses a few day history of increased shortness of breath despite home oxygen. Denies infectious symptoms. Feels volume overloaded. Has had similar episodes in past. Intensity symptoms is as least moderate. Worse with exertion and laying flat. No other specific changes in health, exacerbating, or alleviating factors identified. Onset (ago): week(s) Timing: progressively worsening Severity: moderate Exacerbating factors: lying flat and exertion Known history of: PE Review of Systems General: Reports: 10 or more systems reviewed and unremarkable except in HPI and below PFSH ED PFSH: Medical History Bipolar disorder Cellulitis Depression Elevated brain natriuretic peptide (BNP) level Fibromyalgia syndrome Hypothyroidism [facility] endocrinology--Dr Haider Hypoxia Leg pain Morbid obesity Multiple personality disorder No pertinent past medical history neghx: htn,dm,dvt/pe PCP: Kiesha Aguilar Nocturnal enuresis Nocturnal polyuria Osteoarthritis Surgical History H/O laparoscopy (~2010) treatment of ovarian cysts; performed in [place] History of cholecystectomy 2017-lap History of colonoscopy with polypectomy 2018 History of dental surgery History of placement of ear tubes History of tonsillectomy and adenoidectomy Family History Grandmother Breast cancer Maternal--dx age unknown Diabetes Maternal Hypertension Maternal Mother Breast cancer dx age 40's ; unknown if hormone receptive Thyroid disease Grandfather No problems noted. Sister Thyroid disease Denies family history of Colon cancer Ovarian cancer Hypercholesteremia Uterine cancer Stroke Social History Smoking and tobacco status: current every day smoker Physical Exam Const: COMMON NORMALS: alert GENERAL APPEARANCE: cooperative and well developed NUTRITIONAL APPEARANCE: obese morbidly obese HENMT: COMMON NORMALS: normocephalic and atraumatic HEAD & SCALP: normocephalic and atraumatic THROAT: posterior oropharynx normal Eye: COMMON NORMALS: conjunctivae normal CONJUNCTIVA: Yes conjunctivae normal SCLERA: sclerae normal Neck/C-Spine: COMMON NORMALS: supple GENERAL: Yes trachea midline Resp: COMMON NORMALS: normal respiratory effort and clear to auscultation bilaterally EFFORT & INSPECTION: Yes able to speak in complete sentences AUSCULTATION: clear to auscultation bilaterally Cardio: COMMON NORMALS: regular rate and regular rhythm RATE: regular rate RHYTHM: regular rhythm GI: COMMON NORMALS: Soft to palpation PALPATION: Yes Soft to palpation and No Tenderness to palpation present (GI) Extremity: GENERAL: Yes normal exam except as noted and No edema Neuro: COMMON NORMALS: moves all extremities SENSORIUM/ORIENTATION: Yes alert and No Orientation impaired Psych: COMMON NORMALS: mental status grossly normal and Normal thought process present THOUGHT PROCESS: Normal thought process present Course Vital Signs: Vital signs: Vital Signs Temperature 98.1 F 02/19/22 17:22 Pulse Rate 83 02/20/22 00:00 Respiratory Rate 22 H 02/20/22 00:00 Blood Pressure 132/64 02/19/22 17:22 Pulse Oximetry 94 02/20/22 00:00 Oxygen Delivery Me thod 02/19/22 17:22 Oxygen Flow Rate 3 02/19/22 17:22 MDM - SOB/Dyspnea Medical Decision Making 37-year-old lady with complex past medical history including BMI of 80 presenting to the emergency department due to low oxygen level. Patient is supposed to use oxygen at home however there is questionable use. Patient is nontoxic in exam and does not have evidence of respiratory distress. EKG shows sinus rhythm with nonspecific ST segment abnormalities, no STEMI. Hematologic panel with minimal leukocytosis. ABG with normal pH. Metabolic panel without significant abnormality to explain symptoms. Delta troponin is negative. Chest x-ray with mild pulmonary vascular congestion, no lobar consolidation or pneumothorax. Exact etiology of worsening symptoms is unclear though focal symptoms likely due to comorbidities and underlying medical history. The results of ED evaluation were discussed with the patient including prescriptions and/or symptomatic cares (if applicable) including appropriate and responsible use, followup plan, and return precautions. The patient verbalized understanding and felt safe for discharge. Medical Records I reviewed the patient's medical records. Lab Data I reviewed the patient's lab results. 02/19/22 21:02/19/22: Labs/Radiology: Radiology Impressions Chest X-Ray 02/19/22 19:23 IMPRESSION: Mild cardiomegaly and pulmonary vascular congestion. Laboratory Results WBC 10.4 10^3/uL (4.0-10.0) H 02/19/22: RBC 4.57 10^6/uL (4.1-5.3) 02/19/22: Hgb 13.5 g/dL (11.5-15.3) 02/19/22: Hct 45.0 % (37.0-47.0) 02/19/22: MCV 98.5 fl (81-99) 02/19/22: MCH 29.5 pg (28.0-34.0) 02/19/22: MCHC 30.0 g/dL (30.0-36.0) 02/19/22: RDW 14.6 % (12.1-15.1) 02/19/22: Plt Count 254 10^3/cmm (130-400) 02/19/22: MPV 11.2 fL (7.4-10.4) H 02/19/22: Neut % (Auto) 64.9 % 02/19/22: Lymph % (Auto) 24.1 % 02/19/22: Benson % (Auto) 7.5 % 02/19/22: Eos % (Auto) 2.5 % 02/19/22: Baso % (Auto) 0.6 % 02/19/22: Neut # (Auto) 6.78 10^3/uL (1.8-7.7) 02/19/22: Lymph # (Auto) 2.5 10^3/uL (0.8-4.8) 02/19/22: Benson # (Auto) 0.8 10^3/uL (0.2-0.9) 02/19/22 21: Eos # (Auto) 0.3 10^3/uL (0.0-0.8) 02/19/22 21: Baso # (Auto) 0.1 10^3/uL (0.0-0.1) 02/19/22 21:27 Nucleated RBC % (auto) 0 % 02/19/22 21: Nucleated RBCs # 0.0 /100WBC 02/19/22 21:27 Specimen Type Arterial 02/19/22 21:34 Sample Site Radial, left 02/19/22 21:34 ABG pH 7.36 (7.35-7.45) 02/19/22 21:34 ABG pCO2 54.1 mmHg (35-45) H 02/19/22 21:34 ABG pO2 95.2 mmHg (80.0-100.0) 02/19/22 21:34 ABG HCO3 30.2 mmol/L (22-26) H 02/19/22 21:34 ABG O2 Saturation 98.5 02/19/22 21:34 ABG Base Excess 3.4 mmol/L (-2.0-2.0) H 02/19/22 21:34 Tyrese Test Pos 02/19/22 21:34 Hematocrit 42.7 % (37-47) 02/19/22 21:34 Hgb O2 Saturation 93.2 % (95-100) L 02/19/22 21:34 Carboxyhemoglobin 5.3 %THgb (0.4-20.1) 02/19/22 21:34 Methemoglobin 0.1 % (0.4-1.5) L 02/19/22 21:34 Total Hemoglobin 13.9 g/dL (12-16) 02/19/22 21:34 Sodium 143.0 mmol/L (131-143) 02/19/22 21:34 Potassium 4.2 mmol/L (3.5-5.0) 02/19/22 21:34 Glucose 99.0 mg/dL (70-115) 02/19/22 21:34 Ionized Calcium 1.2 mmol/L (1.1-1.4) 02/19/22 21:34 O2 Delivery Device Nc 02/19/22 21:34 O2 Liters/Min 3.0 % 02/19/22 21:34 Title Manager ID [email or web address] 02/19/22 21: Sodium 140 mmol/L (136-145) 02/19/22: Potassium 4.4 mmol/L (3.5-5.1) 02/19/22 21: Chloride 102 mmol/L (98-107) 02/19/22: Carbon Dioxide 31 mmol/L (22-29) H 02/19/22: Anion Gap 11.4 (5-19) 02/19/22: BUN 20 mg/dL (6-20) 02/19/22: Creatinine 0.9 mg/dL (0.5-0.9) 02/19/22: GFR Calculation 70.8 mL/min (90-130) L 02/19/22: Glucose 100 mg/dL (65-115) 02/19/22: Calculated Osmolality 293 mOsm/kg (285-295) 02/19/22: Calcium 9.1 mg/dL (8.5-10.5) 02/19/22: Total Bilirubin 0.2 mg/dL (0.15-1.2) 02/19/22: AST 12 U/L (0-32) 02/19/22: ALT 10 U/L (0-33) 02/19/22: Alkaline Phosphatase 214 U/L (35-105) H 02/19/22: Troponin T Baseline 15 ng/L (0-10) H 02/19/22: Troponin T 120 Minute 11.95 ng/L (0-10) H 02/19/22 23: Delta Troponin T -3.05 ABS# (0-10) L 02/19/22 23: NT-Pro-B Natriuret Pep 246 pg/mL (0-125) H 02/19/22: Total Protein 6.8 g/dL (6.6-8.7) 02/19/22: Albumin 3.5 g/dL (3.5-5.2) 02/19/22: Globulin 3.3 g/dL (1.3-4.6) 11/18/22 21:27 Discharge Plan Discharge Patient Disposition: Home Clinical Impression: Shortness of breath Condition: Stable Prescriptions: No Action Eucerin Cream 1 applic topical BID PRN (Reason: unknown) lidocaine [Salonpas (lidocaine)] 4 % adhesive patch,medicated 1 patch topical DAILY PRN (Reason: Pain) norethindrone (contraceptive) 0.35 mg tablet 0.35 mg PO DAILY@08 Qty: 84 3RF fluconazole [Diflucan] 150 mg tablet 150 mg PO ONCE Qty: 1 0RF diphenhydramine HCl [Banophen] 25 mg Capsule 25 mg PO Q6H PRN (Reason: Allergy Symptoms) loperamide 2 mg Capsule 2 mg PO Q8H PRN (Reason: Diarrhea) desmopressin 0.2 mg Tablet 0.2 mg PO BEDTIME@20 oxcarbazepine 300 mg Tablet 300 mg PO BID@08,20 dicyclomine 10 mg Capsule 10 mg PO TID PRN (Reason: Abdominal Discomfort) cetirizine 10 mg Tablet 10 mg PO DAILY@08 levothyroxine 100 mcg Tablet 100 mcg PO DAILY@08 famotidine 20 mg Tablet 20 mg PO DAILY@08 hydroxyzine HCl 25 mg Tablet 25 mg PO BEDTIME@20 fluticasone propionate 50 mcg/actuation [place],Suspension 1 spray INTRANASAL DAILY@14 sertraline 50 mg Tablet 150 mg PO DAILY@08 bupropion HCl 300 mg Tablet Extended Release 24 Hr 300 mg PO DAILY@08 potassium chloride 20 mEq Tablet Extended Release 20 meq PO DAILY@08 gabapentin 600 mg Tablet 600 mg PO TID@08,14,20 calcium carbonate-vitamin D3 [Oyster Shell Calcium-Vit D3] 500 mg(1,250mg) -200 unit Tablet 1 tab PO DAILY@08 ergocalciferol (vitamin D2) [Vitamin D2] 1,250 mcg (50,000 unit) capsule 50,000 unit PO Q7D Rx Instructions: on TUESDAY Eliquis 5 mg tablet 5 mg PO BID@08,20 furosemide 40 mg tablet 40 mg PO DAILY@08 Neosporin ([id number]-uyu-vbpnr) 3.5mg-400 unit- 5,000 unit/gram Ointment 1 applic TOPICAL BID PRN (Reason: unknown) epinephrine [EpiPen 2-Norm] 0.3 mg/0.3 mL Auto-Injector 0.3 mg IM Q4H PRN (Reason: Allergic Reaction) meloxicam 7.5 mg Tablet 7.5 mg PO DAILY lidocaine 5 % Adhesive Patch,Medicated 1 patch TOPICAL DAILY Rx Instructions: leave on most painful area for up to 12 hrs Icy Rub Gel 1 applic TOPICAL TID Calcium 600 + D(3) 600 mg-10 mcg (400 unit) Tablet 1 tab PO DAILY olopatadine 0.2 % drops 1 drp ophthalmic (eye) DAILY PRN (Reason: Dry Eye(S)) Latuda 80 mg Tablet 40 mg PO BID Rx Instructions: must administer with food (at least 350 calories) Probiotic 3 billion cell Capsule 3,000 mmu cells PO DAILY Rx Instructions: administer with a meal Cough Drops 5.4 mg Lozenge 5.4 mg MUCOUS MEMBRANE Q4H PRN (Reason: Cough) Discharge Orders: Discharge ED (Routine); Ordered 02/20/22 Ordered By: David Hay Referrals: Fern Aguilar FNP [Primary Care Provider] - Discharge Diet: Usual diet Discharge Activity: Increase activity as tolerated Patient Instructions: Using Oxygen at Home (ED), Shortness of Breath (ED) Activity Restrictions/Additional Instructions: Thank you for visiting the emergency department. You were seen and evaluate for shortness of breath. The exact cause of your shortness of breath is unclear, I do not see evidence of pneumonia or worsening fluid overload. I recommend continuing your medication regimen. I also recommend wearing 3 LPM of oxygen at home at all times. Please follow-up with your primary care provider. Return to the emergency department for worsening symptoms or anything else that you are concerned about a feel needs emergency department evaluation. Coding Level of Care Code ED Box Car Bracer for Luis Carlos Lee
[2022-02-19 21:37] LABS: Basophils # 0.1 10^3/uL (0.0-0.1); Basophils % 0.6 %; Eosinophils # 0.3 10^3/uL (0.0-0.8); Eosinophils % 2.5 %; Hemoglobin 13.5 g/dL (11.5-15.3); Lymphocytes # 2.5 10^3/uL (0.8-4.8); Lymphocytes % 24.1 %; Mean Corpuscular Hemoglobin 29.5 pg (28.0-34.0); Mean Corpuscular Volume 98.5 fl (81-99); Mean Platelet Volume 11.2 fL (7.4-10.4); Monocytes # 0.8 10^3/uL (0.2-0.9); Monocytes % 7.5 %; Neutrophils # 6.78 10^3/uL (1.8-7.7); Neutrophils % 64.9 %; Nucleated Red Blood Cells % 0 %; Platelet Count 254 10^3/cmm (130-400); Red Blood Count 4.57 10^6/uL (4.1-5.3); Red Cell Distribution Width 14.6 % (12.1-15.1); White Blood Count 10.4 10^3/uL (4.0-10.0)
[2022-02-19 21:46] LABS: ABG PCO2 54.1 mmHg (35-45); ABG PH Result 7.36 (7.35-7.45); Arterial Blood Gas Hematocrit 42.7 % (37-47); Base Excess ABG 3.4 mmol/L (-2.0-2.0); Blood Gas Allen Test Pos; Blood Gas Sample Site Radial, left; Blood Gas Sample Type Arterial; Carboxyhemoglobin 5.3 %THgb (0.4-20.1); HCO3 ABG 30.2 mmol/L (22-26); HGB O2 Sat 93.2 % (95-100); Ionized Calcium Level - ABG 1.2 mmol/L (1.1-1.4); Methemoglobin 0.1 % (0.4-1.5); Oxygen Device NC; Oxygen Saturation ABG 98.5; PO2 ABG 95.2 mmHg (80.0-100.0); Potassium Level - ABG 4.2 mmol/L (3.5-5.0); Total Hemoglobin 13.9 g/dL (12-16)
--- NOTE | 2022-02-19 21:55 | ECG_ITS ---
[facility] Test Date: 2022-02-19 Pat Name: Deann Vega Department: Room: Gender: Female Banquet Coordinator: : 1985 Requested By: David Hay Order Number: [id number] Amilcar MD: Ilan Santana M.D. Measurements Intervals [place] Rate: 76 P: 71 [place]: 170 QRS: 86 QRSD: 122 T: 13 QT: 382 QTc: 430 Interpretive Statements SINUS RHYTHM POSSIBLE RIGHT VENTRICULAR CONDUCTION DELAY [RSR (QR) IN V1/V2] Compared to ECG 11/26/2021 14:27:25 No significant changes Electronically Signed On 02-22-2022 18:25:40 [email or web address] PROGRAMMER by Ilan Santana M.D. [id number]
[2022-02-19 22:04] LABS: Troponin(5th) Baseline 15 ng/L (0-10)
[2022-02-19 22:13] LABS: Alanine Aminotransferase 10 U/L (0-33); Albumin Level 3.5 g/dL (3.5-5.2); Alkaline Phosphatase 214 U/L (35-105); Anion Gap 11.4 (5-19); Aspartate Amino Transferase 12 U/L (0-32); Blood Urea Nitrogen 20 mg/dL (6-20); Calcium 9.1 mg/dL (8.5-10.5); Carbon Dioxide 31 mmol/L (22-29); Chloride 102 mmol/L (98-107); Globulin 3.3 g/dL (1.3-4.6); Glomerular Filtration Rate 70.8 mL/min (90-130); Glucose 100 mg/dL (65-115); NT Pro B Type Natriuretic Pept 246 pg/mL (0-125); Osmolality Calculated 293 mOsm/kg (285-295); Potassium 4.4 mmol/L (3.5-5.1); Sodium 140 mmol/L (136-145); Total Bilirubin 0.2 mg/dL (0.15-1.2); Total Protein 6.8 g/dL (6.6-8.7)
--- NOTE | 2022-02-19 22:56 | ECG_ITS ---
[facility] Test Date: 2022-02-20 Pat Name: Deann Vega Department: Room: Gender: Female Carpet Cutter: : 1985 Requested By: David Hay Order Number: [id number] Amilcar MD: Ilan Santana M.D. Measurements Intervals [place] Rate: 79 P: 72 [place]: 173 QRS: 92 QRSD: 122 T: 14 QT: 391 QTc: 449 Interpretive Statements SINUS RHYTHM BORDERLINE RIGHT AXIS DEVIATION [QRS AXIS > 90] POSSIBLE RIGHT VENTRICULAR CONDUCTION DELAY [RSR (QR) IN V1/V2] Compared to ECG 02/19/2022 21:55:21 No significant changes Electronically Signed On 02-22-2022 18:31:19 LOADING MACHINE OPERATOR by Ilan Santana M.D. [id number]
[2022-02-19 23:52] LABS: Troponin 5 2HR 11.95 ng/L (0-10)
[2022-02-19 23:56] LABS: Troponin 5 2HR Delta -3.05 ABS# (0-10)
[2022-02-20] VITALS: PULSE 83; RESP 22; O2SAT 94
== END 2022-02-20 00:34 | disposition home or self-care (01) ==
PROVIDERS: Emergency Provider Emergency Medicine; PCP Nurse Practitioner Family
DX: R06.02 Shortness of breath (principal)
CPT/HCPCS: 36600; 71045; 80051; 80053; 82330; 82805; 83880; 84484; 85025; 93005; 99284

== ENCOUNTER 2022-06-25 19:14 | Emergency (ER) | payer MEDICAID, SELFPAY ==
[2022-06-25 19:19] VITALS: BP 174/85; PULSE 91; RESP 25; TEMP 37.9; O2SAT 93; BMI 81.5
--- NOTE | 2022-06-25 19:25 | ECG_ITS ---
[facility] Test Date: 2022-06-25 Pat Name: Deann Vega Department: Room: Gender: Female Drawstring Knotter: : 1985 Requested By: Cordell Hernandez Order Number: [id number] Amilcar MD: Paradise Dumont M.D. Measurements Intervals [place] Rate: 90 P: 35 [place]: 160 QRS: 68 QRSD: 114 T: -4 QT: 356 QTc: 438 Interpretive Statements SINUS RHYTHM INCOMPLETE RIGHT BUNDLE BRANCH BLOCK [90+ ms QRS DURATION, TERMINAL R IN V1/V2, 40+ ms S IN I/aVL/V4/V5/V6] NONSPECIFIC T-WAVE ABNORMALITY Compared to ECG 02/20/2022 00:28:40 Incomplete right bundle-branch block now present T-wave abnormality now present Electronically Signed On 06-25-2022 23:17:26 CDT by Paradise Dumont M.D. [id number]
--- NOTE | 2022-06-25 19:44 | XRR_ITS ---
PROCEDURE INFORMATION: Exam: XR Chest Exam date and time: 06/25/2022 8:44 PM Age: 37 years old Clinical indication: Shortness of breath; Additional info: SOB TECHNIQUE: Imaging protocol: Radiologic exam of the chest. Views: 1 view. COMPARISON: CR XR chest 1V portable [id number] 02/19/2022 9:51 PM FINDINGS: Lungs: Unremarkable. No consolidation. Pleural spaces: Unremarkable. No pleural effusion. No pneumothorax. Heart/Mediastinum: Unremarkable. No cardiomegaly. Bones/joints: Unremarkable. Soft tissues: Examination is limited secondary to body habitus. XR/XR chest 1V portable [id number] IMPRESSION: No acute findings.
[2022-06-25 20:06] LABS: Basophils # 0.1 10^3/uL (0.0-0.1); Basophils % 0.6 %; Eosinophils # 0.3 10^3/uL (0.0-0.8); Eosinophils % 2.4 %; Hemoglobin 13.6 g/dL (11.5-15.3); Lymphocytes # 2.8 10^3/uL (0.8-4.8); Mean Corpuscular HGB Conc 30.2 g/dL (30.0-36.0); Mean Corpuscular Hemoglobin 30.2 pg (28.0-34.0); Mean Corpuscular Volume 99.8 fl (81-99); Mean Platelet Volume 11.2 fL (7.4-10.4); Monocytes # 0.6 10^3/uL (0.2-0.9); Monocytes % 4.7 %; Neutrophils % 68.9 %; Nucleated Red Blood Cells % 0 %; Platelet Count 225 10^3/cmm (130-400); Red Blood Count 4.51 10^6/uL (4.1-5.3); Red Cell Distribution Width 15.5 % (12.1-15.1); White Blood Count 12.3 10^3/uL (4.0-10.0)
[2022-06-25 20:13] LABS: INR 1.06 (0.8-1.2)
[2022-06-25 20:14] LABS: Partial Thromboplastin Time 27.2 SECONDS (23.9-36.7)
[2022-06-25 20:15] LABS: Troponin(5th) Baseline 13 ng/L (0-10)
[2022-06-25 20:23] LABS: Alanine Aminotransferase 10 U/L (0-33); Albumin Level 3.5 g/dL (3.5-5.2); Alkaline Phosphatase 176 U/L (35-105); Aspartate Amino Transferase 14 U/L (0-32); Blood Urea Nitrogen 18 mg/dL (6-20); Calcium 8.5 mg/dL (8.5-10.5); Carbon Dioxide 29 mmol/L (22-29); Chloride 101 mmol/L (98-107); Globulin 3.2 g/dL (1.3-4.6); Glomerular Filtration Rate 70.5 mL/min (90-130); Glucose 168 mg/dL (65-115); NT Pro B Type Natriuretic Pept 169 pg/mL (0-125); Osmolality Calculated 296 mOsm/kg (285-295); Sodium 140 mmol/L (136-145); Total Bilirubin 0.2 mg/dL (0.15-1.2); Total Protein 6.7 g/dL (6.6-8.7)
[2022-06-25 20:38] VITALS: BP 132/79; PULSE 93; RESP 19; O2SAT 94
[2022-06-25 21:01] LABS: SARS Covid-2 Antigen negative (Negative)
[2022-06-25 21:15] VITALS: BP 138/79; PULSE 84; RESP 22; O2SAT 93
[2022-06-25 22:13] LABS: Troponin 5 2HR 13.05 ng/L (0-10)
[2022-06-25 22:16] LABS: Troponin 5 2HR Delta 0.05 ABS# (0-10)
[2022-06-25] MEDS: doxycycline 100 mg Tablet PO (23:11)
[2022-06-25 23:17] VITALS: BP 142/79; PULSE 84; RESP 25; O2SAT 93
--- NOTE | 2022-06-26 03:24 | W.ED.CHESTPA ---
HPI - Chest Pain General: Chief Complaint: Chest Pain Stated Complaint: RESP. DISTRESS/CP Time Seen by Provider: 06/25/22 19:22 Source: patient History of Present Illness: 37-year-old female with a history of morbid obesity, and evidently congestive heart failure. She presents with shortness of breath, cough, sputum production, and fevers. She is on 3 L of oxygen at home, and says she was short of breath despite this. She does not use a CPAP. MD complaint: chest pain Pertinent past history: other Onset (ago): hour(s) Timing of current episode: constant Prior episodes: Yes Onset: during rest Pain location: substernal and left chest Pain radiation: left arm Severity: moderate Quality: tightness and aching Relieving factors: nothing Exacerbating factors: exertion Associated symptoms: Reports dyspnea and leg edema (Chronic); Deny abdominal pain, fever(s) or vomiting Treatment prior to arrival: oxygen Review of Systems Const: Denies: fever(s) ENMT: Denies: throat pain Card: Reports: chest pain Resp: Reports: dyspnea GI: Denies: abdominal pain or vomiting PFSH ED PFSH: Medical History Bipolar disorder Cellulitis Depression Elevated brain natriuretic peptide (BNP) level Fibromyalgia syndrome Hypothyroidism [facility] endocrinology--Dr Haider Hypoxia Leg pain Morbid obesity Multiple personality disorder No pertinent past medical history neghx: htn,dm,dvt/pe PCP: Kiesha Aguilar Nocturnal enuresis Nocturnal polyuria Osteoarthritis Surgical History H/O laparoscopy (~2010) treatment of ovarian cysts; performed in [place] History of cholecystectomy 2017-lap History of colonoscopy with polypectomy 2018 History of dental surgery History of placement of ear tubes History of tonsillectomy and adenoidectomy Family History Grandmother Breast cancer Maternal--dx age unknown Diabetes Maternal Hypertension Maternal Mother Breast cancer dx age 40's ; unknown if hormone receptive Thyroid disease Grandfather No problems noted. Sister Thyroid disease Denies family history of Colon cancer Ovarian cancer Hypercholesteremia Uterine cancer Stroke Social History Smoking and tobacco status: current every day smoker Physical Exam Const: COMMON NORMALS: no acute distress GENERAL APPEARANCE: cooperative; not ill appearing and not frail appearing NUTRITIONAL APPEARANCE: obese HENMT: COMMON NORMALS: normocephalic, atraumatic and Normal external nose present HEAD & SCALP: normocephalic and atraumatic FACE & SINUS: normal facial exam and face symmetric NOSE: Normal external nose present Eye: COMMON NORMALS: Equal, round and reactive pupils present and EOMs intact bilaterally PUPIL: Yes Equal, round and reactive pupils present Neck/C-Spine: GENERAL: Yes trachea midline Chest: CHEST: Yes Symmetrical chest wall rise Resp: COMMON NORMALS: normal respiratory effort, No retractions, No use of accessory muscles and clear to auscultation bilaterally AUSCULTATION: clear to auscultation bilaterally Cardio: COMMON NORMALS: regular rate and regular rhythm RATE: regular rate RHYTHM: regular rhythm GI: COMMON NORMALS: Normal to inspection, nondistended, normoactive bowel sounds present Extremity: COMMON NORMALS: no pedal edema Neuro: EFFIE COMA SCALE: document GCS findings Effie coma scale eye opening: Spontaneous Cooter coma scale verbal response: Orientated Cooter coma scale motor response: Obey commands Cooter coma scale total score: 15 SENSORY EXAM: Yes extremities (intact) Psych: COMMON NORMALS: speech normal SPEECH: Yes normal speech Skin: COMMON NORMALS: no rashes or lesions noted GENERAL SKIN EXAM: no rashes or lesions noted Course Vital Signs: Vital signs: Vital Signs Temperature 100.2 F H 06/25/22 19:19 Pulse Rate 84 06/25/22 23:17 Respiratory Rate 25 H 06/25/22 23:17 Blood Pressure 142/79 06/25/22 23:17 Pulse Oximetry 93 06/25/22 23:17 Oxygen Delivery Me thod 06/25/22 19:19 Oxygen Flow Rate 4 06/25/22 19:19 MDM - Chest Pain Medical Decision Making Saturations are above 93% here on 3 to 4 L. Her chest x-ray is negative. Her white blood cell count is 12. Other laboratory is not remarkable. She is anticoagulated, making thromboembolism much less likely. She will be treated for bronchitis. Lab Data 06/25/22 19:47 06/25/22 19:47 Radiology Impressions Chest X-Ray 06/25/22 19:44 IMPRESSION: No acute findings. Laboratory Results WBC 12.3 10^3/uL (4.0-10.0) H 06/25/22 19:47 RBC 4.51 10^6/uL (4.1-5.3) 06/25/22 19:47 Hgb 13.6 g/dL (11.5-15.3) 06/25/22 19:47 Hct 45.0 % (37.0-47.0) 06/25/22 19:47 MCV 99.8 fl (81-99) H 06/25/22 19:47 MCH 30.2 pg (28.0-34.0) 06/25/22 19:47 MCHC 30.2 g/dL (30.0-36.0) 06/25/22 19:47 RDW 15.5 % (12.1-15.1) H 06/25/22 19:47 Plt Count 225 10^3/cmm (130-400) 06/25/22 19:47 MPV 11.2 fL (7.4-10.4) H 06/25/22 19:47 Neut % (Auto) 68.9 % 06/25/22 19:47 Lymph % (Auto) 23.0 % 06/25/22 19:47 [place] % (Auto) 4.7 % 06/25/22 19:47 Eos % (Auto) 2.4 % 06/25/22 19:47 Baso % (Auto) 0.6 % 06/25/22 19:47 Neut # (Auto) 8.50 10^3/uL (1.8-7.7) H 06/25/22 19:47 Lymph # (Auto) 2.8 10^3/uL (0.8-4.8) 06/25/22 19:47 [place] # (Auto) 0.6 10^3/uL (0.2-0.9) 06/25/22 19:47 Eos # (Auto) 0.3 10^3/uL (0.0-0.8) 06/25/22 19:47 Baso # (Auto) 0.1 10^3/uL (0.0-0.1) 06/25/22 19:47 Nucleated RBC % (auto) 0 % 06/25/22 19:47 Nucleated RBCs # 0.0 /100WBC 06/25/22 19:47 PT 14.20 SECONDS (12.1-14.9) 06/25/22 19:47 INR 1.06 (0.8-1.2) 06/25/22 19:47 APTT 27.2 SECONDS (23.9-36.7) 06/25/22 19:47 Sodium 140 mmol/L (136-145) 06/25/22 19:47 Potassium 4.0 mmol/L (3.5-5.1) 06/25/22 19:47 Chloride 101 mmol/L (98-107) 06/25/22 19:47 Carbon Dioxide 29 mmol/L (22-29) 06/25/22 19:47 Anion Gap 14.0 (5-19) 06/25/22 19:47 BUN 18 mg/dL (6-20) 06/25/22 19:47 Creatinine 0.9 mg/dL (0.5-0.9) 06/25/22 19:47 GFR Calculation 70.5 mL/min (90-130) L 06/25/22 19:47 Glucose 168 mg/dL (65-115) H 06/25/22 19:47 Calculated Osmolality 296 mOsm/kg (285-295) H 06/25/22 19:47 Calcium 8.5 mg/dL (8.5-10.5) 06/25/22 19:47 Total Bilirubin 0.2 mg/dL (0.15-1.2) 06/25/22 19:47 AST 14 U/L (0-32) 06/25/22 19:47 ALT 10 U/L (0-33) 06/25/22 19:47 Alkaline Phosphatase 176 U/L (35-105) H 06/25/22 19:47 Troponin T Baseline 13 ng/L (0-10) H 06/25/22 19:47 Troponin T 120 Minute 13.05 ng/L (0-10) H 06/25/22 21:43 Delta Troponin T 0.05 ABS# (0-10) 06/25/22 21:43 NT-Pro-B Natriuret Pep 169 pg/mL (0-125) H 06/25/22 19:47 Total Protein 6.7 g/dL (6.6-8.7) 06/25/22 19:47 Albumin 3.5 g/dL (3.5-5.2) 06/25/22 19:47 Globulin 3.2 g/dL (1.3-4.6) 06/25/22 19:47 SARS-CoV-2 Ag (Rapid) negative (Negative) 06/25/22 20:31 Discharge Plan Discharge Patient Disposition: Home Clinical Impression: Dyspnea on exertion, Bronchitis Condition: Stable Prescriptions: New doxycycline hyclate 100 mg capsule 100 mg PO BID 7 Days Qty: 14 0RF albuterol sulfate 90 mcg/actuation HFA aerosol inhaler 2 inh inhalation Q4H PRN (Reason: shortness of breath or wheezing) Qty: 6.7 1RF No Action Eucerin Cream 1 applic topical BID PRN (Reason: unknown) lidocaine [Salonpas (lidocaine)] 4 % adhesive patch,medicated 1 patch topical DAILY PRN (Reason: Pain) norethindrone (contraceptive) 0.35 mg tablet 0.35 mg PO DAILY@08 Qty: 84 3RF fluconazole [Diflucan] 150 mg tablet 150 mg PO ONCE Qty: 1 0RF diphenhydramine HCl [Banophen] 25 mg Capsule 25 mg PO Q6H PRN (Reason: Allergy Symptoms) loperamide 2 mg Capsule 2 mg PO Q8H PRN (Reason: Diarrhea) desmopressin 0.2 mg Tablet 0.2 mg PO BEDTIME@20 oxcarbazepine 300 mg Tablet 300 mg PO BID@08,20 dicyclomine 10 mg Capsule 10 mg PO TID PRN (Reason: Abdominal Discomfort) cetirizine 10 mg Tablet 10 mg PO DAILY@08 levothyroxine 100 mcg Tablet 100 mcg PO DAILY@08 famotidine 20 mg Tablet 20 mg PO DAILY@08 hydroxyzine HCl 25 mg Tablet 25 mg PO BEDTIME@20 fluticasone propionate 50 mcg/actuation [place],Suspension 1 spray INTRANASAL DAILY@14 sertraline 50 mg Tablet 150 mg PO DAILY@08 bupropion HCl 300 mg Tablet Extended Release 24 Hr 300 mg PO DAILY@08 potassium chloride 20 mEq Tablet Extended Release 20 meq PO DAILY@08 gabapentin 600 mg Tablet 600 mg PO TID@08,14,20 calcium carbonate-vitamin D3 [Oyster Shell Calcium-Vit D3] 500 mg(1,250mg) -200 unit Tablet 1 tab PO DAILY@08 ergocalciferol (vitamin D2) [Vitamin D2] 1,250 mcg (50,000 unit) capsule 50,000 unit PO Q7D Rx Instructions: on TUESDAY Eliquis 5 mg tablet 5 mg PO BID@08,20 furosemide 40 mg tablet 40 mg PO DAILY@08 Neosporin (dur-hrm-sejoz) 3.5mg-400 unit- 5,000 unit/gram Ointment 1 applic TOPICAL BID PRN (Reason: unknown) epinephrine [EpiPen 2-Norm] 0.3 mg/0.3 mL Auto-Injector 0.3 mg IM Q4H PRN (Reason: Allergic Reaction) meloxicam 7.5 mg Tablet 7.5 mg PO DAILY lidocaine 5 % Adhesive Patch,Medicated 1 patch TOPICAL DAILY Rx Instructions: leave on most painful area for up to 12 hrs Icy Rub Gel 1 applic TOPICAL TID Calcium 600 + D(3) 600 mg-10 mcg (400 unit) Tablet 1 tab PO DAILY olopatadine 0.2 % drops 1 drp ophthalmic (eye) DAILY PRN (Reason: Dry Eye(S)) Latuda 80 mg Tablet 40 mg PO BID Rx Instructions: must administer with food (at least 350 calories) Probiotic 3 billion cell Capsule 3,000 mmu cells PO DAILY Rx Instructions: administer with a meal Cough Drops 5.4 mg Lozenge 5.4 mg MUCOUS MEMBRANE Q4H PRN (Reason: Cough) Discharge Orders: Discharge ED (Routine); Ordered 06/25/22 Ordered By: Cordell Colmenares Referrals: Fern Aguilar FNP [Primary Care Provider] - 1-3 days Patient Instructions: Acute Bronchitis (ED) Activity Restrictions/Additional Instructions: Use the inhaler every 4 hours while awake for the next 24 hours, then as needed. Return for worsening shortness of breath despite treatment, fever despite at least 3 doses of antibiotics, other worsening or concerning symptoms Coding Level of Care Code ED Assistant Administrator for Luis Carlos Lee
== END 2022-06-25 23:46 | disposition home or self-care (01) ==
PROVIDERS: Emergency Provider Emergency Medicine; PCP Nurse Practitioner Family
DX: J40 Bronchitis, not specified as acute or chronic (principal); I50.9 Heart failure, unspecified; E03.9 Hypothyroidism, unspecified; E66.01 Morbid (severe) obesity due to excess calories; Z68.45 Body mass index [BMI] 70 or greater, adult; F17.200 Nicotine dependence, unspecified, uncomplicated; Z79.01 Long term (current) use of anticoagulants; Z99.81 Dependence on supplemental oxygen
CPT/HCPCS: 71045; 80053; 83880; 84484; 85025; 85610; 85730; 87426; 93005; 99285

== ENCOUNTER → 2022-07-05 14:04 | Outpatient (BNVA) | payer MEDICAID, SELFPAY | PROVIDERS: PCP Nurse Practitioner Family; Visit Provider Internal Medicine Cardiovascular Disease | DX: I11.0 Hypertensive heart disease with heart failure (principal); I50.9 Heart failure, unspecified; G47.30 Sleep apnea, unspecified; R06.00 Dyspnea, unspecified; F17.200 Nicotine dependence, unspecified, uncomplicated; Z79.01 Long term (current) use of anticoagulants; F44.81 Dissociative identity disorder; F31.81 Bipolar II disorder; F20.0 Paranoid schizophrenia | CPT/HCPCS: 99204 ==

== ENCOUNTER → 2022-07-22 14:00 | Outpatient (BNVA) | payer MEDICAID, SELFPAY | PROVIDERS: PCP Nurse Practitioner Family; Visit Provider Dermatology | DX: Z48.02 Encounter for removal of sutures (principal) | CPT/HCPCS: 99024 ==

== ENCOUNTER → 2022-08-05 15:10 | Outpatient (BNVA) | payer MEDICAID, SELFPAY | PROVIDERS: PCP Nurse Practitioner Family; Visit Provider Dermatology | DX: L23.9 Allergic contact dermatitis, unspecified cause (principal); S30.810A Abrasion of lower back and pelvis, initial encounter; X58.XXXA Exposure to other specified factors, initial encounter; D23.61 Other benign neoplasm of skin of right upper limb, including shoulder; L30.4 Erythema intertrigo; E66.8 Other obesity | CPT/HCPCS: 99214 ==

== ENCOUNTER → 2022-09-23 15:13 | Outpatient (BNVA) | payer MEDICAID, SELFPAY | PROVIDERS: PCP Nurse Practitioner Family; Visit Provider Dermatology | DX: L23.9 Allergic contact dermatitis, unspecified cause (principal); L30.4 Erythema intertrigo; E66.8 Other obesity; I87.2 Venous insufficiency (chronic) (peripheral); S30.91XA Unspecified superficial injury of lower back and pelvis, initial encounter; X58.XXXA Exposure to other specified factors, initial encounter | CPT/HCPCS: 99214 ==

== ENCOUNTER 2022-10-10 15:59 | Emergency (ER) | payer MEDICAID, SELFPAY ==
[2022-10-10] VITALS (8 sets, daily range): BP systolic 135–184; BP diastolic 74–105; PULSE 72–81; RESP 18; TEMP 36.5; O2SAT 92–95; BMI 81.5
--- NOTE | 2022-10-10 16:24 | XRR_ITS ---
PROCEDURE INFORMATION: Exam: XR Chest Exam date and time: 10/10/2022 5:30 PM Age: 37 years old Clinical indication: Pain; Chest pressure; Additional info: Chest pain TECHNIQUE: Imaging protocol: Radiologic exam of the chest. Views: 1 view. COMPARISON: 1. CR XR chest 1V portable [id number] 06/25/2022 8:44 PM 2. CR XR chest 1V portable [id number] 02/19/2022 9:51 PM 3. CR XR chest 1V portable [id number] 02/12/2022 4:33 PM FINDINGS: Lungs: No consolidation. Pulmonary vascular congestion with cephalization and increased lung markings. Pleural spaces: Unremarkable. No pleural effusion. No pneumothorax. Heart/Mediastinum: Mildly enlarged cardiac silhouette. Bones/joints: Unremarkable. XR/XR chest 1V portable [id number] IMPRESSION: Mild cardiomegaly and pulmonary vascular congestion.
--- NOTE | 2022-10-10 16:26 | W.ED.CHESTPA ---
Documented by User: Mehran El MD 10/10/22 17:50 HPI - Chest Pain General: Chief Complaint: Chest Pain Stated Complaint: CHEST PAIN Time Seen by Provider: 10/10/22 16:06 History of Present Illness: This 37-year-old female with a history of morbid obesity, cellulitis, fibromyalgia and hypothyroidism presents to the ER for evaluation of chest pain that started 2 days ago. Pain was initially on the right side of the anterior chest but has now moved to the left. It is intermittent and dull in nature. There is no clear aggravating or relieving factors. Pain lasts for a variable amount of time and spontaneously resolves. Patient reports that pain is now on the left anterior chest and there was associated numbness earlier today. At some point, she also had numbness in her lower extremities. Pain is rated at 8 out of 10. Review of Systems Const: Denies: chills, body aches or change in appetite Eyes: Denies: change in vision or eye discharge ENMT: Denies: throat pain, dental pain or nasal discharge Card: Reports: chest pain : Denies: dysuria Musc: Denies: neck pain or back pain Neuro: Reports: other (Intermittent numbness in upper and lower extremities); Denies: headache(s) or weakness in extremities Psych: Denies: depression Myles/Lymph: Denies: easy bruising All/Imm: Denies: urticaria, tongue swelling or facial swelling PFSH ED PFSH: Medical History Bipolar disorder Cellulitis Depression Elevated brain natriuretic peptide (BNP) level Fibromyalgia syndrome Hypothyroidism [facility] endocrinology--Dr Haider Hypoxia Leg pain Morbid obesity Multiple personality disorder No pertinent past medical history neghx: htn,dm,dvt/pe PCP: Kiesha Aguilar Nocturnal enuresis Nocturnal polyuria Osteoarthritis Surgical History H/O laparoscopy (~2010) treatment of ovarian cysts; performed in [place] History of cholecystectomy 2017-lap History of colonoscopy with polypectomy 2018 History of dental surgery History of placement of ear tubes History of tonsillectomy and adenoidectomy Family History Grandmother Breast cancer Maternal--dx age unknown Diabetes Maternal Hypertension Maternal Mother Breast cancer dx age 40's ; unknown if hormone receptive Thyroid disease Grandfather No problems noted. Sister Thyroid disease Denies family history of Colon cancer Ovarian cancer Hypercholesteremia Uterine cancer Stroke Social History Smoking and tobacco status: current every day smoker Physical Exam Const: COMMON NORMALS: no acute distress, patient oriented x3, no limitations and alert NUTRITIONAL APPEARANCE: obese morbidly obese HENMT: COMMON NORMALS: normocephalic HEAD & SCALP: normocephalic Eye: COMMON NORMALS: EOMs intact bilaterally Neck/C-Spine: COMMON NORMALS: full ROM and supple Chest: COMMONS NORMALS: normal inspection of the chest Resp: COMMON NORMALS: normal respiratory effort, No retractions, No use of accessory muscles and clear to auscultation bilaterally AUSCULTATION: clear to auscultation bilaterally Cardio: COMMON NORMALS: regular rate, regular rhythm and No murmurs present (Cardio) RATE: regular rate RHYTHM: regular rhythm GI: COMMON NORMALS: Normal to inspection, nondistended, normoactive bowel sounds present and non-tender : COMMON NORMALS: Yes no CVA tenderness BLADDER/KIDNEY EXAM: Yes no CVA tenderness Back/Pelvis: COMMON NORMALS: no CVA tenderness and no thoracic nor lumbar tenderness Extremity: GENERAL: Yes normal exam except as noted Neuro: COMMON NORMALS: patient oriented x3 and no focal motor deficits SENSORIUM/ORIENTATION: Yes alert Psych: COMMON NORMALS: mental status grossly normal and cooperative Course Vital Signs: Vital signs: Vital Signs Temperature 97.7 F 10/10/22 16:01 Pulse Rate 72 10/10/22 21:22 Respiratory Rate 18 10/10/22 21:22 Blood Pressure 159/82 10/10/22 21:22 Pulse Oximetry 94 10/10/22 21:22 Oxygen Delivery Me thod Nasal Cannula 10/10/22 18:25 Oxygen Flow Rate 6 10/10/22 18:25 MDM - Chest Pain Lab Data 10/10/22 17:30 10/10/22 17:30 Radiology Impressions Chest X-Ray 10/10/22 16:24 IMPRESSION: Mild cardiomegaly and pulmonary vascular congestion. Laboratory Results WBC 13.1 10^3/uL (4.0-10.0) H 10/10/22 17:30 RBC 4.68 10^6/uL (4.1-5.3) 10/10/22 17: Hgb 13.6 g/dL (11.5-15.3) 10/10/22 17:30 Hct 46.6 % (37.0-47.0) 10/10/22 17:30 MCV 99.6 fl (81-99) H 10/10/22 17:30 MCH 29.1 pg (28.0-34.0) 10/10/22 17: MCHC 29.2 g/dL (30.0-36.0) L 10/10/22 17: RDW 18.5 % (12.1-15.1) H 10/10/22 17: Plt Count 251 10^3/cmm (130-400) 10/10/22 17: MPV 11.0 fL (7.4-10.4) H 10/10/22 17:30 Neut % (Auto) 73.3 % 10/10/22 17:30 Lymph % (Auto) 19.3 % 10/10/22 17:30 Beadle % (Auto) 4.7 % 10/10/22 17: Eos % (Auto) 1.7 % 10/10/22 17: Baso % (Auto) 0.5 % 10/10/22 17:30 Neut # (Auto) 9.63 10^3/uL (1.8-7.7) H 10/10/22 17:30 Lymph # (Auto) 2.5 10^3/uL (0.8-4.8) 10/10/22 17:30 Beadle # (Auto) 0.6 10^3/uL (0.2-0.9) 10/10/22 17:30 Eos # (Auto) 0.2 10^3/uL (0.0-0.8) 10/10/22 17: Baso # (Auto) 0.1 10^3/uL (0.0-0.1) 10/10/22 17:30 Nucleated RBC % (auto) 0.3 % 10/10/22 17: Nucleated RBCs # 0.0 /100WBC 10/10/22 17: Sodium 134 mmol/L (136-145) L 10/10/22 17:30 Potassium 4.2 mmol/L (3.5-5.1) 10/10/22 17:30 Chloride 94 mmol/L (98-107) L 10/10/22 17:30 Carbon Dioxide 31 mmol/L (22-29) H 10/10/22 17:30 Anion Gap 13.2 (5-19) 10/10/22 17:30 BUN 19 mg/dL (6-20) 10/10/22 17:30 Creatinine 1.0 mg/dL (0.5-0.9) H 10/10/22 17:30 GFR Calculation 62.4 mL/min (90-130) L 10/10/22 17:30 Glucose 104 mg/dL (65-115) 10/10/22 17:30 Calculated Osmolality 281 mOsm/kg (285-295) L 10/10/22 17:30 Calcium 8.8 mg/dL (8.5-10.5) 10/10/22 17:30 Total Bilirubin 0.2 mg/dL (0.15-1.2) 10/10/22 17:30 AST 19 U/L (0-32) 10/10/22 17:30 ALT 18 U/L (0-33) 10/10/22 17:30 Alkaline Phosphatase 225 U/L (35-105) H 10/10/22 17:30 Troponin T Baseline 12 ng/L (0-10) H 10/10/22 17:30 Troponin T 120 Minute 11.62 ng/L (0-10) H 10/10/22 19:01 Delta Troponin T -0.38 ABS# (0-10) L 10/10/22 19:01 Total Protein 7.4 g/dL (6.6-8.7) 10/10/22 17:30 Albumin 3.6 g/dL (3.5-5.2) 10/10/22 17:30 Globulin 3.8 g/dL (1.3-4.6) 10/10/22 17:30 EKG Data EKG 1: Interpretation: Normal sinus rhythm, rate of 75, normal axis, normal intervals, nonspecific T wave changes, no STEMI. Discharge Plan Discharge Patient Disposition: Home Clinical Impression: Chest pain Condition: Stable Prescriptions: New Medrol (Norm) 4 mg tablets,dose pack See Rx Instructions .ROUTE .COMPLEX Qty: 21 0RF Rx Instructions: orally per package directions No Action Eucerin Cream 1 applic topical BID PRN (Reason: unknown) lidocaine [Salonpas (lidocaine)] 4 % adhesive patch,medicated 1 patch topical DAILY PRN (Reason: Pain) ciclopirox 0.77 % cream 1 applic topical BID 28 Days Qty: 30 2RF Rx Instructions: Apply to red areas twice a day, as needed. triamcinolone acetonide 0.1 % ointment 1 applic topical BID Qty: 30 1RF Rx Instructions: Apply to affected areas twice a day, two times a week; for no more than 2 months. triamcinolone acetonide 0.1 % ointment 1 applic topical BID Qty: 454 0RF Rx Instructions: Apply to affected areas twice daily for 2 weeks until follow up norethindrone (contraceptive) 0.35 mg tablet 0.35 mg PO DAILY@08 Qty: 84 3RF spironolactone 25 mg tablet 12.5 mg PO DAILY fluconazole [Diflucan] 150 mg tablet 150 mg PO ONCE Qty: 1 0RF (DME) Blood Pressure Cuff Misc See Rx Instructions .Route Qty: 1 0RF Rx Instructions: As directed losartan 25 mg tablet 25 mg PO DAILY Qty: 30 2RF diphenhydramine HCl [Banophen] 25 mg Capsule 25 mg PO Q6H PRN (Reason: Allergy Symptoms) loperamide 2 mg Capsule 2 mg PO Q8H PRN (Reason: Diarrhea) desmopressin 0.2 mg Tablet 0.2 mg PO BEDTIME@20 oxcarbazepine 300 mg Tablet 300 mg PO BID@08,20 dicyclomine 10 mg Capsule 10 mg PO TID PRN (Reason: Abdominal Discomfort) cetirizine 10 mg Tablet 10 mg PO DAILY@08 levothyroxine 100 mcg Tablet 100 mcg PO DAILY@08 famotidine 20 mg Tablet 20 mg PO DAILY@08 hydroxyzine HCl 25 mg Tablet 25 mg PO BEDTIME@20 fluticasone propionate 50 mcg/actuation [place],Suspension 1 spray INTRANASAL DAILY@14 sertraline 50 mg Tablet 150 mg PO DAILY@08 bupropion HCl 300 mg Tablet Extended Release 24 Hr 300 mg PO DAILY@08 potassium chloride 20 mEq Tablet Extended Release 20 meq PO DAILY@08 gabapentin 600 mg Tablet 600 mg PO TID@08,14,20 calcium carbonate-vitamin D3 [Oyster Shell Calcium-Vit D3] 500 mg(1,250mg) -200 unit Tablet 1 tab PO DAILY@08 ergocalciferol (vitamin D2) [Vitamin D2] 1,250 mcg (50,000 unit) capsule 50,000 unit PO Q7D Rx Instructions: on TUESDAY Eliquis 5 mg tablet 5 mg PO BID@08,20 furosemide 40 mg tablet 40 mg PO DAILY@08 Neosporin (bkz-kht-jiarm) 3.5mg-400 unit- 5,000 unit/gram Ointment 1 applic TOPICAL BID PRN (Reason: unknown) epinephrine [EpiPen 2-Norm] 0.3 mg/0.3 mL Auto-Injector 0.3 mg IM Q4H PRN (Reason: Allergic Reaction) meloxicam 7.5 mg Tablet 7.5 mg PO DAILY lidocaine 5 % Adhesive Patch,Medicated 1 patch TOPICAL DAILY Rx Instructions: leave on most painful area for up to 12 hrs Icy Rub Gel 1 applic TOPICAL TID Calcium 600 + D(3) 600 mg-10 mcg (400 unit) Tablet 1 tab PO DAILY olopatadine 0.2 % drops 1 drp ophthalmic (eye) DAILY PRN (Reason: Dry Eye(S)) Latuda 80 mg Tablet 40 mg PO BID Rx Instructions: must administer with food (at least 350 calories) Probiotic 3 billion cell Capsule 3,000 mmu cells PO DAILY Rx Instructions: administer with a meal Cough Drops 5.4 mg Lozenge 5.4 mg MUCOUS MEMBRANE Q4H PRN (Reason: Cough) albuterol sulfate 90 mcg/actuation HFA aerosol inhaler 2 inh inhalation Q4H PRN (Reason: shortness of breath or wheezing) Qty: 6.7 1RF Discharge Orders: Discharge ED (Routine); Ordered 10/10/22 Ordered By: Cordell Colmenares Referrals: Fern Aguilar FNP [Primary Care Provider] - 1-3 days Patient Instructions: Chest Pain (ED) Activity Restrictions/Additional Instructions: Return for worsening pain, shortness of breath, fever, other concerning symptoms. Coding Level of Care Code ED Field Clerk for Chg Fwd Documented by User: Cordell Colmenares DO 10/10/22 23:08 HPI - Chest Pain General: Chief Complaint: Chest Pain Stated Complaint: CHEST PAIN Time Seen by Provider: 10/10/22 16:06 PFSH ED PFSH: Medical History Bipolar disorder Cellulitis Depression Elevated brain natriuretic peptide (BNP) level Fibromyalgia syndrome Hypothyroidism [facility] endocrinology--Dr Haider Hypoxia Leg pain Morbid obesity Multiple personality disorder No pertinent past medical history neghx: htn,dm,dvt/pe PCP: Kiesha Aguilar Nocturnal enuresis Nocturnal polyuria Osteoarthritis Surgical History H/O laparoscopy (~2010) treatment of ovarian cysts; performed in [place] History of cholecystectomy 2017-lap History of colonoscopy with polypectomy 2018 History of dental surgery History of placement of ear tubes History of tonsillectomy and adenoidectomy Family History Grandmother Breast cancer Maternal--dx age unknown Diabetes Maternal Hypertension Maternal Mother Breast cancer dx age 40's ; unknown if hormone receptive Thyroid disease Grandfather No problems noted. Sister Thyroid disease Denies family history of Colon cancer Ovarian cancer Hypercholesteremia Uterine cancer Stroke Social History Smoking and tobacco status: current every day smoker Course Vital Signs: Vital signs: Vital Signs Temperature 97.7 F 10/10/22 16:01 Pulse Rate 72 10/10/22 21:22 Respiratory Rate 18 10/10/22 21:22 Blood Pressure 159/82 10/10/22 21:22 Pulse Oximetry 94 10/10/22 21:22 Oxygen Delivery Me thod Nasal Cannula 10/10/22 18:25 Oxygen Flow Rate 6 10/10/22 18:25 MDM - Chest Pain Medical Decision Making 37-year-old female checked out to me by the previous physician at shift change. This is a morbidly obese lady. In fact, CTs have been attempted in the past, but diagnostic imaging could not be completed due to the patient's size relative to the CT scanner. She is on Eliquis chronically for presumed prior diagnosis of PE, although could never be confirmed due to the above. She has taken her Eliquis faithfully. She is mildly hypoxic here. She has oxygen at home due to chronic hypoxia with obesity hypoventilation syndrome. Her white blood cell count is 13. Creatinine is 1. Her first troponin was 12 with a 2-hour delta of 0.4 negative. Chest x-ray is essentially negative. Remark is made about possible pulmonary vascular congestion, although more likely related to the patient's body habitus. She is stable. She talks in very complete sentences without shortness of breath. She is anxious on my reexamination, and notes that as we talk, the left sided shooting discomfort and paresthesia to the right arm, which was gone prior, is coming back. She is given an lorazepam for this. She is ruled out for acute coronary syndrome. PE is unlikely, as the patient is not tachycardic, and is chronically on Eliquis. She asks about paresthesias, for which we will place her on a tapering dose of steroid in case this is a radiculopathy, although it is more likely anxiety. Close outpatient follow-up. Lab Data 10/10/22 17:30 10/10/22 17:30 Radiology Impressions Chest X-Ray 10/10/22 16:24 IMPRESSION: Mild cardiomegaly and pulmonary vascular congestion. Laboratory Results WBC 13.1 10^3/uL (4.0-10.0) H 10/10/22 17:30 RBC 4.68 10^6/uL (4.1-5.3) 10/10/22 17:30 Hgb 13.6 g/dL (11.5-15.3) 10/10/22 17:30 Hct 46.6 % (37.0-47.0) 10/10/22 17: MCV 99.6 fl (81-99) H 10/10/22 17:30 MCH 29.1 pg (28.0-34.0) 10/10/22 17: MCHC 29.2 g/dL (30.0-36.0) L 10/10/22 17:30 RDW 18.5 % (12.1-15.1) H 10/10/22 17:30 Plt Count 251 10^3/cmm (130-400) 10/10/22 17:30 MPV 11.0 fL (7.4-10.4) H 10/10/22 17:30 Neut % (Auto) 73.3 % 10/10/22 17:30 Lymph % (Auto) 19.3 % 10/10/22 17:30 Beadle % (Auto) 4.7 % 10/10/22 17:30 Eos % (Auto) 1.7 % 10/10/22 17:30 Baso % (Auto) 0.5 % 10/10/22 17:30 Neut # (Auto) 9.63 10^3/uL (1.8-7.7) H 10/10/22 17:30 Lymph # (Auto) 2.5 10^3/uL (0.8-4.8) 10/10/22 17:30 Beadle # (Auto) 0.6 10^3/uL (0.2-0.9) 10/10/22 17:30 Eos # (Auto) 0.2 10^3/uL (0.0-0.8) 10/10/22 17:30 Baso # (Auto) 0.1 10^3/uL (0.0-0.1) 10/10/22 17:30 Nucleated RBC % (auto) 0.3 % 10/10/22 17: Nucleated RBCs # 0.0 /100WBC 10/10/22 17:30 Sodium 134 mmol/L (136-145) L 10/10/22 17:30 Potassium 4.2 mmol/L (3.5-5.1) 10/10/22 17:30 Chloride 94 mmol/L (98-107) L 10/10/22 17:30 Carbon Dioxide 31 mmol/L (22-29) H 10/10/22 17:30 Anion Gap 13.2 (5-19) 10/10/22 17:30 BUN 19 mg/dL (6-20) 10/10/22 17:30 Creatinine 1.0 mg/dL (0.5-0.9) H 10/10/22 17:30 GFR Calculation 62.4 mL/min (90-130) L 10/10/22 17:30 Glucose 104 mg/dL (65-115) 10/10/22 17:30 Calculated Osmolality 281 mOsm/kg (285-295) L 10/10/22 17:30 Calcium 8.8 mg/dL (8.5-10.5) 10/10/22 17:30 Total Bilirubin 0.2 mg/dL (0.15-1.2) 10/10/22 17:30 AST 19 U/L (0-32) 10/10/22 17:30 ALT 18 U/L (0-33) 10/10/22 17:30 Alkaline Phosphatase 225 U/L (35-105) H 10/10/22 17:30 Troponin T Baseline 12 ng/L (0-10) H 10/10/22 17:30 Troponin T 120 Minute 11.62 ng/L (0-10) H 10/10/22 19:01 Delta Troponin T -0.38 ABS# (0-10) L 10/10/22 19:01 Total Protein 7.4 g/dL (6.6-8.7) 10/10/22 17:30 Albumin 3.6 g/dL (3.5-5.2) 10/10/22 17:30 Globulin 3.8 g/dL (1.3-4.6) 10/10/22 17:30 Discharge Plan Discharge Patient Disposition: Home Clinical Impression: Chest pain Condition: Stable Prescriptions: New Medrol (Norm) 4 mg tablets,dose pack See Rx Instructions .ROUTE .COMPLEX Qty: 21 0RF Rx Instructions: orally per package directions No Action Eucerin Cream 1 applic topical BID PRN (Reason: unknown) lidocaine [Salonpas (lidocaine)] 4 % adhesive patch,medicated 1 patch topical DAILY PRN (Reason: Pain) ciclopirox 0.77 % cream 1 applic topical BID 28 Days Qty: 30 2RF Rx Instructions: Apply to red areas twice a day, as needed. triamcinolone acetonide 0.1 % ointment 1 applic topical BID Qty: 30 1RF Rx Instructions: Apply to affected areas twice a day, two times a week; for no more than 2 months. triamcinolone acetonide 0.1 % ointment 1 applic topical BID Qty: 454 0RF Rx Instructions: Apply to affected areas twice daily for 2 weeks until follow up norethindrone (contraceptive) 0.35 mg tablet 0.35 mg PO DAILY@08 Qty: 84 3RF spironolactone 25 mg tablet 12.5 mg PO DAILY fluconazole [Diflucan] 150 mg tablet 150 mg PO ONCE Qty: 1 0RF (DME) Blood Pressure Cuff Misc See Rx Instructions .Route Qty: 1 0RF Rx Instructions: As directed losartan 25 mg tablet 25 mg PO DAILY Qty: 30 2RF diphenhydramine HCl [Banophen] 25 mg Capsule 25 mg PO Q6H PRN (Reason: Allergy Symptoms) loperamide 2 mg Capsule 2 mg PO Q8H PRN (Reason: Diarrhea) desmopressin 0.2 mg Tablet 0.2 mg PO BEDTIME@20 oxcarbazepine 300 mg Tablet 300 mg PO BID@08,20 dicyclomine 10 mg Capsule 10 mg PO TID PRN (Reason: Abdominal Discomfort) cetirizine 10 mg Tablet 10 mg PO DAILY@08 levothyroxine 100 mcg Tablet 100 mcg PO DAILY@08 famotidine 20 mg Tablet 20 mg PO DAILY@08 hydroxyzine HCl 25 mg Tablet 25 mg PO BEDTIME@20 fluticasone propionate 50 mcg/actuation [place],Suspension 1 spray INTRANASAL DAILY@14 sertraline 50 mg Tablet 150 mg PO DAILY@08 bupropion HCl 300 mg Tablet Extended Release 24 Hr 300 mg PO DAILY@08 potassium chloride 20 mEq Tablet Extended Release 20 meq PO DAILY@08 gabapentin 600 mg Tablet 600 mg PO TID@08,14,20 calcium carbonate-vitamin D3 [Oyster Shell Calcium-Vit D3] 500 mg(1,250mg) -200 unit Tablet 1 tab PO DAILY@08 ergocalciferol (vitamin D2) [Vitamin D2] 1,250 mcg (50,000 unit) capsule 50,000 unit PO Q7D Rx Instructions: on TUESDAY Eliquis 5 mg tablet 5 mg PO BID@08,20 furosemide 40 mg tablet 40 mg PO DAILY@08 Neosporin (nvl-rtt-tqlzr) 3.5mg-400 unit- 5,000 unit/gram Ointment 1 applic TOPICAL BID PRN (Reason: unknown) epinephrine [EpiPen 2-Norm] 0.3 mg/0.3 mL Auto-Injector 0.3 mg IM Q4H PRN (Reason: Allergic Reaction) meloxicam 7.5 mg Tablet 7.5 mg PO DAILY lidocaine 5 % Adhesive Patch,Medicated 1 patch TOPICAL DAILY Rx Instructions: leave on most painful area for up to 12 hrs Icy Rub Gel 1 applic TOPICAL TID Calcium 600 + D(3) 600 mg-10 mcg (400 unit) Tablet 1 tab PO DAILY olopatadine 0.2 % drops 1 drp ophthalmic (eye) DAILY PRN (Reason: Dry Eye(S)) Latuda 80 mg Tablet 40 mg PO BID Rx Instructions: must administer with food (at least 350 calories) Probiotic 3 billion cell Capsule 3,000 mmu cells PO DAILY Rx Instructions: administer with a meal Cough Drops 5.4 mg Lozenge 5.4 mg MUCOUS MEMBRANE Q4H PRN (Reason: Cough) albuterol sulfate 90 mcg/actuation HFA aerosol inhaler 2 inh inhalation Q4H PRN (Reason: shortness of breath or wheezing) Qty: 6.7 1RF Discharge Orders: Discharge ED (Routine); Ordered 10/10/22 Ordered By: Cordell Colmenares Referrals: Fern Aguilar FNP [Primary Care Provider] - 1-3 days Patient Instructions: Chest Pain (ED) Activity Restrictions/Additional Instructions: Return for worsening pain, shortness of breath, fever, other concerning symptoms. Coding Level of Care Code ED Field Clerk for Luis Carlos Lee
--- NOTE | 2022-10-10 16:39 | ECG_ITS ---
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 Measurements Intervals [place] Rate: 75 P: 33 SC: 148 QRS: 70 QRSD: 114 T: -13 QT: 377 QTc: 422 Interpretive Statements SINUS RHYTHM LOW QRS VOLTAGE IN PRECORDIAL LEADS [QRS DEFLECTION < 1.0 mV IN CHEST LEADS] INCOMPLETE RIGHT BUNDLE BRANCH BLOCK [90+ ms QRS DURATION, TERMINAL R IN V1/V2, 40+ ms S IN I/aVL/V4/V5/V6] NONSPECIFIC T-WAVE ABNORMALITY Compared to ECG 06/25/2022 19:25:06 Low QRS voltage now present T-wave abnormality still present Electronically Signed On 10-11-2022 8:11:34 CDT by Oswaldo Valencia M.D. [id number]
[2022-10-10 17:58] LABS: Basophils # 0.1 10^3/uL (0.0-0.1); Basophils % 0.5 %; Eosinophils # 0.2 10^3/uL (0.0-0.8); Eosinophils % 1.7 %; Hematocrit 46.6 % (37.0-47.0); Hemoglobin 13.6 g/dL (11.5-15.3); Lymphocytes # 2.5 10^3/uL (0.8-4.8); Lymphocytes % 19.3 %; Mean Corpuscular HGB Conc 29.2 g/dL (30.0-36.0); Mean Corpuscular Hemoglobin 29.1 pg (28.0-34.0); Mean Corpuscular Volume 99.6 fl (81-99); Monocytes # 0.6 10^3/uL (0.2-0.9); Monocytes % 4.7 %; Neutrophils # 9.63 10^3/uL (1.8-7.7); Neutrophils % 73.3 %; Nucleated Red Blood Cells % 0.3 %; Platelet Count 251 10^3/cmm (130-400); Red Blood Count 4.68 10^6/uL (4.1-5.3); Red Cell Distribution Width 18.5 % (12.1-15.1); White Blood Count 13.1 10^3/uL (4.0-10.0)
--- NOTE | 2022-10-10 18:15 | ECG_ITS ---
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 Measurements Intervals [place] Rate: 71 P: 29 WI: 159 QRS: 38 QRSD: 113 T: -31 QT: 394 QTc: 429 Interpretive Statements SINUS RHYTHM Incomplete right bundle branch block LOW QRS VOLTAGE IN PRECORDIAL LEADS [QRS DEFLECTION < 1.0 mV IN CHEST LEADS] MODERATE INTRAVENTRICULAR CONDUCTION DELAY [110+ ms QRS DURATION] NONSPECIFIC ST & T-WAVE ABNORMALITY Compared to ECG 10/10/2022 16:39:58 T-wave abnormality still present Electronically Signed On 10-11-2022 8:15:35 CDT by Oswaldo Valencia M.D. [id number]
[2022-10-10 18:22] LABS: Troponin(5th) Baseline 12 ng/L (0-10)
[2022-10-10 18:25] LABS: Alanine Aminotransferase 18 U/L (0-33); Albumin Level 3.6 g/dL (3.5-5.2); Alkaline Phosphatase 225 U/L (35-105); Blood Urea Nitrogen 19 mg/dL (6-20); Calcium 8.8 mg/dL (8.5-10.5); Carbon Dioxide 31 mmol/L (22-29); Chloride 94 mmol/L (98-107); Globulin 3.8 g/dL (1.3-4.6); Glomerular Filtration Rate 62.4 mL/min (90-130); Glucose 104 mg/dL (65-115); Osmolality Calculated 281 mOsm/kg (285-295); Sodium 134 mmol/L (136-145); Total Bilirubin 0.2 mg/dL (0.15-1.2); Total Protein 7.4 g/dL (6.6-8.7)
[2022-10-10] MEDS: nitroglycerin 0.4 mg sublingual Tablet SUBLINGUAL (18:34)
[2022-10-10 18:45] LABS: Anion Gap 13.2 (5-19); Aspartate Amino Transferase 19 U/L (0-32); Potassium 4.2 mmol/L (3.5-5.1)
[2022-10-10 19:20] LABS: Troponin 5 2HR 11.62 ng/L (0-10)
[2022-10-10 19:22] LABS: Troponin 5 2HR Delta -0.38 ABS# (0-10)
[2022-10-10] MEDS: dexamethasone 10 mg/mL INJ 6 MG IVP (20:57)
[2022-10-10] MEDS: LORazepam 2 mg/mL INJ 1 mL 1 MG IVP (20:57)
== END 2022-10-10 21:30 | disposition home or self-care (01) ==
PROVIDERS: Family Medicine; Emergency Provider Emergency Medicine; PCP Nurse Practitioner Family
DX: R07.89 Other chest pain (principal); E03.9 Hypothyroidism, unspecified; R09.02 Hypoxemia; E66.2 Morbid (severe) obesity with alveolar hypoventilation; Z68.45 Body mass index [BMI] 70 or greater, adult; F17.200 Nicotine dependence, unspecified, uncomplicated; Z79.899 Other long term (current) drug therapy; Z79.01 Long term (current) use of anticoagulants; Z99.81 Dependence on supplemental oxygen
CPT/HCPCS: 36415; 71045; 80053; 84484; 85025; 93005; 96374; 96375; 99285; J1100; J2060

== ENCOUNTER → 2022-11-25 15:42 | Outpatient (BNVA) | payer MEDICAID, SELFPAY | PROVIDERS: PCP Nurse Practitioner Family; Visit Provider Dermatology | DX: L23.9 Allergic contact dermatitis, unspecified cause (principal); L30.4 Erythema intertrigo; I87.2 Venous insufficiency (chronic) (peripheral); T14.8XXA Other injury of unspecified body region, initial encounter; Y99.9 Unspecified external cause status | CPT/HCPCS: 99214 ==

== ENCOUNTER 2022-12-17 20:44 | Inpatient (IN) | payer MEDICAID, SELFPAY ==
[2022-12-17 21:11] VITALS: BP 148/105; PULSE 88; RESP 22; TEMP 36.8; O2SAT 84; BMI 73.9
--- NOTE | 2022-12-17 21:38 | XRR_ITS ---
PROCEDURE INFORMATION: Exam: XR Chest Exam date and time: 12/17/2022 9:45 PM Age: 37 years old Clinical indication: Cough TECHNIQUE: Imaging protocol: Radiologic exam of the chest. Views: 1 view. COMPARISON: CR (CHEST, ) 10/10/2022 5:30 PM FINDINGS: Lungs: See Heart/Mediastinum finding. Pleural spaces: Unremarkable. No pleural effusion. No pneumothorax. Heart/Mediastinum: Cardiomegaly, pulmonary vascular congestion and interstitial edema. Bones/joints: Unremarkable. XR/XR chest 1V portable [id number] IMPRESSION: Cardiomegaly, pulmonary vascular congestion and interstitial edema.
--- NOTE | 2022-12-17 21:46 | W.ED.SKABFB ---
HPI - Skin/Abscess/Foreign Bdy General: Chief complaint: Skin/Abscess/Foreign Body Stated complaint: Painful draining rash to left side abdomen and groin Time Seen by Provider: 12/17/22 20:59 Source: patient and other (Patient's caregiver) Mode of arrival: wheelchair Limitations: no limitations History of Present Illness: Patient with history of chronic intertrigo, morbid obesity, schizophrenia. She presents to the ER with a caregiver with complaint of worsening painful rash to the right side abdominal folds into her groin that is draining and foul-smelling. She is not currently using any topical therapies. She does see a plater helper for this. She is also complaining of hallucinations today and confusion noted per caregiver, nausea, vomiting, diarrhea for 1 to 2 weeks, fever, vaginal itching and dysuria. She denies diabetes or history of MRSA. Her caregiver states she has been taking her psych medicines as prescribed, has been using marijuana and is not supposed to. Patient denies SI or HI. Denies any other drug or alcohol abuse. Associated symptoms: Reports chills, fever(s), nausea and vomiting Review of Systems Const: Reports: fever(s), chills and malaise Eyes: Denies: change in vision ENMT: Denies: throat pain or ear or mastoid pain Card: Reports: lightheadedness and dyspnea on exertion; Denies: chest pain or syncope Resp: Reports: non-productive cough; Denies: dyspnea GI: Reports: nausea, vomiting and diarrhea; Denies: abdominal pain : Reports: dysuria, genital pruritis and vaginal odor Skin/Breast: Reports: rash, pruritus, erythema and skin tenderness Neuro: Denies: headache(s), numbness in extremities or weakness in extremities Psych: Reports: visual hallucinations; Denies: suicidal ideation or homicidal ideation FOR[facility]LY [facility] ED PFSH: Medical History Bipolar disorder Cellulitis Depression Elevated brain natriuretic peptide (BNP) level Fibromyalgia syndrome Hypothyroidism [facility] endocrinology--Dr Haider Hypoxia Leg pain Morbid obesity Multiple personality disorder No pertinent past medical history neghx: htn,dm,dvt/pe PCP: Kiesha Aguilar Nocturnal enuresis Nocturnal polyuria Osteoarthritis Surgical History H/O laparoscopy (~2010) treatment of ovarian cysts; performed in [place] History of cholecystectomy 2017-lap History of colonoscopy with polypectomy 2018 History of dental surgery History of placement of ear tubes History of tonsillectomy and adenoidectomy Family History Grandmother Breast cancer Maternal--dx age unknown Diabetes Maternal Hypertension Maternal Mother Breast cancer dx age 40's ; unknown if hormone receptive Thyroid disease Grandfather No problems noted. Sister Thyroid disease Denies family history of Colon cancer Ovarian cancer Hypercholesteremia Uterine cancer Stroke Social History Smoking and tobacco status: current every day smoker Physical Exam Const: COMMON NORMALS: no acute distress GENERAL APPEARANCE: cooperative and disheveled NUTRITIONAL APPEARANCE: obese morbidly obese ORIENTATION/CONSCIOUSNESS: Yes awake and Yes oriented to person; not oriented to place and not oriented to time HENMT: COMMON NORMALS: normocephalic and atraumatic HEAD & SCALP: normocephalic and atraumatic Eye: COMMON NORMALS: Equal, round and reactive pupils present and EOMs intact bilaterally PUPIL: Yes Equal, round and reactive pupils present Neck/C-Spine: COMMON NORMALS: full ROM and no meningeal signs Resp: COMMON NORMALS: normal respiratory effort, No use of accessory muscles and clear to auscultation bilaterally AUSCULTATION: clear to auscultation bilaterally Cardio: COMMON NORMALS: regular rate and regular rhythm RATE: regular rate RHYTHM: regular rhythm Back/Pelvis: COMMON NORMALS: thoracic and lumbar spine normal to inspection Extremity: COMMON NORMALS: normal to inspection Neuro: SENSORIUM/ORIENTATION: Yes oriented to person, No oriented to place and No oriented to time MENINGEAL SIGNS: Yes no meningeal signs Psych: MOOD & AFFECT: Yes anxious THOUGHT CONTENT: Yes delusions Course Vital Signs: Vital signs: Vital Signs Temperature 98.2 F 12/17/22 21:11 Pulse Rate 88 12/17/22 21:11 Respiratory Rate 22 H 12/17/22 21:11 Blood Pressure 148/105 12/17/22 21:11 Pulse Oximetry 84 L 12/17/22 21:11 Oxygen Delivery Me thod Room Air 12/17/22 21:11 MDM - Skin/Abscess/Foreign Bdy Medicial Decision Making Patient presents to the ER with extensive intertriginous candidiasis to the abdominal folds and groin with likely associated cellulitis. She is not febrile does not appear toxic. She has had a history of intertrigo for a long time and is not currently on any treatments. She tells me she is allergic to water and only tries to bathe every 3 to 4 days. She does have a caregiver at bedside who helps give her meds. She has been taking her psych meds. The caregiver reports she has had some hallucinations. On my exam patient does not appear to be hallucinating, does think that she is in a hotel and not hospital. She denies SI or HI. She does report history of 1 to 2 weeks of fever, nausea, vomiting, diarrhea. She was treated with IV dose of Rocephin and Diflucan. She likely will require intensive skin care regimen, oral and topical antifungals. She will be admitted to hospitalist service for further evaluation and treatment. I discussed with Dr Gamez and case reviewed with Dr. Colmenares. Differential Diagnosis Likely cellulitis and contact dermatitis Medical Records I reviewed the patient's medical records. Lab Data I reviewed the patient's lab results. 12/17/22 21:53 12/17/22 21:53 Radiology Impressions Chest X-Ray 12/17/22 21:38 IMPRESSION: Cardiomegaly, pulmonary vascular congestion and interstitial edema. Laboratory Results WBC 12.33 10^3/uL (3.29-11.43) H 12/17/22 21:53 RBC 5.07 10^6/uL (3.85-5.65) 12/17/22 21:53 Hgb 13.60 g/dL (11.27-16.99) 12/17/22 21:53 Hct 47.6 % (36-47) H 12/17/22 21:53 MCV 93.9 fl (85-98) 12/17/22 21:53 MCH 26.8 pg (27-33) L 12/17/22 21:53 MCHC 28.6 g/dL (30-55) L 12/17/22 21:53 RDW 18.9 % (12.1-15.1) H 12/17/22 21:53 Plt Count 261 10^3/cmm (157-399) 12/17/22 21:53 MPV 11.4 fL (7.4-10.4) H 12/17/22 21:53 Neut % (Auto) 75.2 % 12/17/22 21:53 Lymph % (Auto) 14.4 % 12/17/22 21:53 [place] % (Auto) 6.7 % 12/17/22 21:53 Eos % (Auto) 2.5 % 12/17/22 21:53 Baso % (Auto) 0.7 % 12/17/22 21:53 Neut # (Auto) 9.26 10^3/uL (1.8-7.7) H 12/17/22 21:53 Lymph # (Auto) 1.8 10^3/uL (0.8-4.8) 12/17/22 21:53 [place] # (Auto) 0.8 10^3/uL (0.2-0.9) 12/17/22 21:53 Eos # (Auto) 0.3 10^3/uL (0.0-0.8) 12/17/22 21:53 Baso # (Auto) 0.1 10^3/uL (0.0-0.1) 12/17/22 21:53 Nucleated RBC % (auto) 0.3 % 12/17/22 21:53 Nucleated RBCs # 0.0 /100WBC 12/17/22 21:53 Sodium 140 mmol/L (136-145) 12/17/22 21:53 Potassium 4.3 mmol/L (3.5-5.1) 12/17/22 21:53 Chloride 98 mmol/L (98-107) 12/17/22 21:53 Carbon Dioxide 35 mmol/L (22-29) H 12/17/22 21:53 Anion Gap 11.3 (5-19) 12/17/22 21:53 BUN 20 mg/dL (6-20) 12/17/22 21:53 Creatinine 1.1 mg/dL (0.5-0.9) H 12/17/22 21:53 GFR Calculation 55.9 mL/min (90-130) L 12/17/22 21:53 Glucose 103 mg/dL (65-115) 12/17/22 21:53 Calculated Osmolality 293 mOsm/kg (285-295) 12/17/22 21:53 Lactic Acid 1.7 mmol/L (0.5-2.2) 12/17/22 21:53 Calcium 8.8 mg/dL (8.5-10.5) 12/17/22 21:53 Total Bilirubin 0.4 mg/dL (0.15-1.2) 12/17/22 21:53 AST 15 U/L (0-32) 12/17/22 21:53 ALT 13 U/L (0-33) 12/17/22 21:53 Alkaline Phosphatase 206 U/L (35-105) H 12/17/22 21:53 Total Protein 7.3 g/dL (6.6-8.7) 12/17/22 21:53 Albumin 3.9 g/dL (3.5-5.2) 12/17/22 21:53 Globulin 3.4 g/dL (1.3-4.6) 12/17/22 21:53 Ethyl Alcohol < 10 mg/dL (0-10) 12/17/22 21:53 SARS-CoV-2 Ag (Rapid) negative (Negative) 12/17/22 22:16 All radiology interpretation(s) finalized by discharge Discharge Plan Discharge Patient Disposition: Admitted As Inpatient Clinical Impression: Candidiasis, intertriginous, Cellulitis, Morbid obesity, Schizophrenia Condition: Stable Coding Level of Care Code ED [employer]
[2022-12-17 22:05] LABS: Basophils # 0.1 10^3/uL (0.0-0.1); Basophils % 0.7 %; Eosinophils # 0.3 10^3/uL (0.0-0.8); Eosinophils % 2.5 %; Hematocrit 47.6 % (36-47); Lymphocytes # 1.8 10^3/uL (0.8-4.8); Lymphocytes % 14.4 %; Mean Corpuscular HGB Conc 28.6 g/dL (30-55); Mean Corpuscular Hemoglobin 26.8 pg (27-33); Mean Corpuscular Volume 93.9 fl (85-98); Mean Platelet Volume 11.4 fL (7.4-10.4); Monocytes # 0.8 10^3/uL (0.2-0.9); Monocytes % 6.7 %; Neutrophils # 9.26 10^3/uL (1.8-7.7); Neutrophils % 75.2 %; Nucleated Red Blood Cells % 0.3 %; Platelet Count 261 10^3/cmm (157-399); Red Blood Count 5.07 10^6/uL (3.85-5.65); Red Cell Distribution Width 18.9 % (12.1-15.1); White Blood Count 12.33 10^3/uL (3.29-11.43)
[2022-12-17] MEDS: cefTRIAXone 2,000 MG in sodium chloride 0.9% (plus) 50 ML 100 MG IV (22:10)
[2022-12-17 22:28] LABS: Alanine Aminotransferase 13 U/L (0-33); Albumin Level 3.9 g/dL (3.5-5.2); Alkaline Phosphatase 206 U/L (35-105); Aspartate Amino Transferase 15 U/L (0-32); Blood Urea Nitrogen 20 mg/dL (6-20); Calcium 8.8 mg/dL (8.5-10.5); Carbon Dioxide 35 mmol/L (22-29); Chloride 98 mmol/L (98-107); Globulin 3.4 g/dL (1.3-4.6); Glomerular Filtration Rate 55.9 mL/min (90-130); Glucose 103 mg/dL (65-115); Lactic Sepsis W/Reflex 1.7 mmol/L (0.5-2.2); Osmolality Calculated 293 mOsm/kg (285-295); Sodium 140 mmol/L (136-145); Total Bilirubin 0.4 mg/dL (0.15-1.2); Total Protein 7.3 g/dL (6.6-8.7)
[2022-12-17 22:29] LABS: Alcohol Level < 10 mg/dL (0-10); Anion Gap 11.3 (5-19); Potassium 4.3 mmol/L (3.5-5.1)
[2022-12-17 22:31] VITALS: BP 137/73; PULSE 79; RESP 16; O2SAT 91
[2022-12-17 22:42] LABS: SARS Covid-2 Antigen negative (Negative)
[2022-12-17 23:30] VITALS: BP 127/73; PULSE 80; RESP 16; O2SAT 89
[2022-12-17] MEDS: fluconazole premix 200 MG/100 ML PREMIX 100 MG IV (23:42)
[2022-12-18] VITALS (11 sets, daily range): BP systolic 119–160; BP diastolic 65–92; PULSE 63–90; RESP 13–33; TEMP 36.5–36.8; O2SAT 90–96
--- NOTE | 2022-12-18 00:23 | P.HP_ITS ---
Providers/Chief Complaint Primary Care Provider: RANDY Stevens Chief Complaint: rash on abdomin History of Present Illness Deann Vega is a 37 year old female with history of morbid obesity schizophrenia GERD fibromyalgia IBS anxiety depression CKD Prader martha syndrome presented with complaint of macular rash in the lower abdomen and inner thighs since few months. She was brought in by the computed tomography technician for complaint of off-and-on hot flashes and chills since last few days. She has a history of erythematous rash to her lower abdomen in the abdominal folds extending to inner thighs since July 25. She has been on topical treatment for the rash but with no improvement. As per the computed tomography technician the rash is getting worse with se rosanguineous and occasional bloody discharge. She reports taking bath every third or fourth day. Denies any fever cold cough chest pain nausea vomiting urinary or bowel complaints. July 2022 erythema and crusting in the abdominal pannus with significant dependent edema.? Scattered pink eczematous lesions with satellite papules extending from the intertriginous folds onto the lateral thighs towards the buttocks representing more like fungal rash. Review of Systems Narrative: As per HPI Medications/Allergies Home Medications Medication Instructions Recorded Confirmed Last Taken Type bupropion HCl 300 mg 24 hr tablet, 300 mg PO DAILY@02/16/20 07/13/22 02/12/22 History extended release cetirizine 10 mg tablet 10 mg PO DAILY@02/16/20 07/13/22 02/12/22 History famotidine 20 mg tablet 20 mg PO DAILY@02/16/20 07/13/22 02/12/22 History fluticasone propionate 50 1 spray intranasal DAILY@02/16/20 07/13/22 02/11/22 History mcg/actuation nasal spray,suspension hydroxyzine HCl 25 mg tablet 25 mg PO BEDTIME@02/16/20 07/13/22 02/11/22 History levothyroxine 100 mcg tablet 100 mcg PO DAILY@02/16/20 07/13/22 02/12/22 History potassium chloride 20 mEq 20 meq PO DAILY@02/16/20 07/13/22 02/12/22 History tablet,extended release sertraline 50 mg tablet 150 mg PO DAILY@02/16/20 07/13/22 02/12/22 History calcium carbonate 500 mg-vitamin 1 tab PO DAILY@08 05/12/20 07/13/22 02/11/22 History D3 5 mcg (200 unit) tablet (Oyster Shell Calcium-Vitamin D3) gabapentin 600 mg tablet 600 mg PO TID@,,05/12/20 07/13/22 02/12/22 History diphenhydramine HCl 25 mg capsule 25 mg PO Q6H PRN Allergy Symptoms 07/24/20 07/13/22 Unknown History (Banophen) desmopressin 0.2 mg tablet 0.2 mg PO BEDTIME@06/15/21 07/13/22 02/11/22 History dicyclomine 10 mg capsule 10 mg PO TID PRN Abdominal 06/15/21 07/13/22 Unknown History Discomfort loperamide 2 mg capsule 2 mg PO Q8H PRN Diarrhea 06/15/21 07/13/22 06/14/21 History oxcarbazepine 300 mg tablet 300 mg PO BID@06/15/21 07/13/22 02/12/22 History lanolin alcohols-mineral 1 applic topical BID PRN unknown 07/01/21 07/13/22 Unknown History oil-w.petrolatum-ceresin topical cream (Eucerin topical cream) lidocaine 4 % topical patch 1 patch topical DAILY PRN Pain 07/01/21 07/13/22 Unknown History (Salonpas (lidocaine)) apixaban 5 mg tablet (Eliquis) 5 mg PO BID@11/26/21 07/13/22 02/12/22 History epinephrine 0.3 mg/0.3 mL 0.3 mg IM Q4H PRN Allergic Reaction 11/26/21 07/13/22 Unknown History injection, auto-injector (EpiPen 2-Norm) ergocalciferol (vitamin D2) 1,250 50,000 unit PO Q7D 11/26/21 07/13/22 02/06/22 History mcg (50,000 unit) capsule (Vitamin D2) furosemide 40 mg tablet 40 mg PO DAILY@08 11/26/21 07/13/22 02/12/22 History neomycin-bacitracn Zn-polymyx 3.5 1 applic topical BID PRN unknown 11/26/2102/24 Unknown History mg-400 unit-5,000 unit/gram top oint (Neosporin (skw-hxn-hnmaf)) norethindrone (contraceptive) 0.35 0.35 mg PO DAILY@08 #84 tabs 01/19/22 07/13/22 02/11/22 Rx mg tablet calcium carbonate 600 mg-vitamin 1 tab PO DAILY 02/12/22 07/13/22 02/12/22 History D3 10 mcg (400 unit) tablet (Calcium 600 + D(3)) lactobacillus combination no.4 3 3,000 mmu cells PO DAILY 02/12/22 07/13/22 02/12/22 History billion cell capsule (Probiotic) lidocaine 5 % topical patch 1 patch topical DAILY 02/12/22 07/13/22 02/11/22 History lurasidone 80 mg tablet (Latuda) 40 mg PO BID 02/12/22 07/13/22 02/12/22 History meloxicam 7.5 mg tablet 7.5 mg PO DAILY 02/12/22 07/13/22 02/11/22 History menthol 1 applic topical TID 02/12/22 07/13/22 Unknown History menthol 5.4 mg lozenges (Cough 5.4 mg mucous membrane Q4H PRN 02/12/22 07/13/22 Unknown History Drops) Cough olopatadine 0.2 % eye drops 1 drp ophthalmic (eye) DAILY PRN 02/12/22 07/13/22 Unknown History Dry Eye(S) fluconazole 150 mg tablet 150 mg PO ONCE #1 tab 02/16/22 07/13/22 Unknown Rx (Diflucan) albuterol sulfate 90 mcg/actuation 2 inh inhalation Q4H PRN shortness 06/25/22 07/13/22 Unknown Rx aerosol inhaler of breath or wheezing #6.7 grams spironolactone 25 mg tablet 12.5 mg PO DAILY 07/05/22 07/13/22 Unknown History miscellaneous medical supply #1 ea 07/07/22 07/13/22 Unknown Rx (Blood Pressure Cuff) ciclopirox 0.77 % topical cream 1 applic topical BID 4 weeks #30 07/13/22 07/13/22 Unknown Rx grams triamcinolone acetonide 0.1 % 1 applic topical BID #30 grams 07/13/22 07/13/22 Unknown Rx topical ointment triamcinolone acetonide 0.1 % 1 applic topical BID #454 grams 07/22/22 07/22/22 Unknown Rx topical ointment methylprednisolone 4 mg tablets in See Rx Instructions PO .COMPLEX 10/10/22 Unknown Rx a dose pack (Medrol (Norm)) #21 ea losartan 25 mg tablet See Rx Instructions .Route 10/18/22 Unknown Rx .COMPLEX #30 tabs Allergies Allergy/AdvReac Type Severity Reaction Status Date / Time acetaminophen [From Tylenol] Allergy ALGY-Rash Verified 12/17/22 21:22 aspirin Allergy ALGY-Rash Verified 12/17/22 21:22 azithromycin Allergy ALGY-Rash Verified 12/17/22 21:22 haloperidol [From Haldol] Allergy ADR-Seizure Verified 12/17/22 21:22 tramadol Allergy ADR-Seizure Verified 12/17/22 21:22 ibuprofen AdvReac Mild Unknown Verified 12/17/22 21:22 bee strings Allergy Anaphylaxis Uncoded 10/10/22 16:07 PFSH Acute PFSH: Medical History Bipolar disorder Cellulitis Depression Elevated brain natriuretic peptide (BNP) level Fibromyalgia syndrome Hypothyroidism [facility] endocrinology--Dr Haider Hypoxia Leg pain Morbid obesity Multiple personality disorder No pertinent past medical history neghx: htn,dm,dvt/pe PCP: Kiesha Aguilar Nocturnal enuresis Nocturnal polyuria Osteoarthritis Surgical History H/O laparoscopy (~2010) treatment of ovarian cysts; performed in [place] History of cholecystectomy 2017-lap History of colonoscopy with polypectomy 2018 History of dental surgery History of placement of ear tubes History of tonsillectomy and adenoidectomy Family History Grandmother Breast cancer Maternal--dx age unknown Diabetes Maternal Hypertension Maternal Mother Breast cancer dx age 40's ; unknown if hormone receptive Thyroid disease Grandfather No problems noted. Sister Thyroid disease Denies family history of Colon cancer Ovarian cancer Hypercholesteremia Uterine cancer Stroke Social History Smoking and tobacco status: current every day smoker Vitals/I&O/Wt Last Vital Signs Temp 98.2 F 12/17/22 21:11 Pulse 88 12/17/22 21:11 Resp 22 H 12/17/22 21:11 BP 148/105 12/17/22 21:11 Pulse Ox 84 L 12/17/22 21:11 O2 Del Method Room Air 12/17/22 21:11 Weight last 48 hrs Weight 220.446 kg Physical Exam Narrative: She is alert awake oriented x3, super morbidly obese not in acute distress Chest clear to auscultation bilaterally Cardiovascular normal heart sounds regular rhythm Abdomen NAD Extremities no edema noted Skin erythematous macular rash noted in the lower abdomen and in the abdominal folds extending from right to left side and inner thighs with serosanguineous and bloody discharge, no crusting seen. Data 12/17/22 21:53 12/17/22 21:53 Micro: Microbiology 12/17/22 21:50 Blood Culture - Preliminary Blood SPECIMEN COLLECTED 12/17/22 21:53 Blood Culture - Preliminary Blood SPECIMEN COLLECTED CXR: Radiologist's impression: Cardiomegaly pulmonary vascular congestion and interstitial edema A&P Assessment and plan (1) Candidiasis, intertriginous: (2) Cellulitis: Plan 37-year-old female with morbid obesity and lack of daily hygiene with history of extensive erythematous rash in the lower abdominal folds presented with chills increased redness and discharge from the rash likely secondary to cellulitis superimposed on intertriginous candidiasis We will start IV vancomycin 1 g every 12 hour IV fluconazole 200 mg daily Nursing care for rash with triamcinolone topical and triple antibiotic ointment Resume home medications IV Pepcid 20 mg every 12 hours for stress ulcer prophylaxis She is on Eliquis for history of suspected PE no need for further DVT prophylaxis She is full code Attestations Medical Necessity Statement*: She needs continued hospitalization for more than 2 midnights for IV antibiotics and IV fluconazole for extensive intertriginous candidiasis with secondary infection Time Spent in Patient Care: 30 minutes Coding Level of Care Code Acute Code for g Fwd Diagnoses Candidiasis, intertriginous B37.2 Cellulitis L03.90 Time Spent (min) 30
[2022-12-18 01:21] LABS: Amphetamines Screen Urine Negative (Negative); Barbiturates Screen Urine Negative (Negative); Benzodiazepines Screen Urine Negative (Negative); Cocaine Screen Urine Negative (Negative); Opiate Screen Urine Negative (Negative); PCP Screen Urine Negative (Negative); THC Screen Urine Positive (Negative)
[2022-12-18 01:25] LABS: Urine Appearance Clear (CLEAR); Urine Color Yellow (Yellow); pH Urine 6 (5-7)
[2022-12-18 01:26] LABS: Add Urine Culture? No; Amorphous Sediment Urine 2+ /hpf; Bacteria Urine TRACE /hpf; Bilirubin Urine Neg (Negative); Blood Urine Neg (Negative); Glucose Urine UA Norm (Normal); Ketones Urine Negative (Negative); Leukocyte Esterase Urine 2+ (Negative); Nitrate Urine Negative (Negative); Protein Urine Trace (Negative); RBC Urine RARE /hpf (0-2); Squamous Epithelial Cell Urine 0-4 /hpf (0-5); Urobilinogen Urine Neg (Negative); WBC Urine 0-4 /hpf (0-5)
[2022-12-18] MEDS: famotidine 20 mg/2 mL INJ IVP ×2 (03:13→17:25)
--- NOTE | 2022-12-18 08:47 | PC.PHAR ---
Addendum entered by Margaret Gibson 12/19/22 07:41: still unable to get ahold of trud[facility] and [facility] is not open on weekends-ext med history shows oxcarbazepine 300mg tid filled 12/07/22 30d/s the previously entered med list has 300mg bid-ext med history shows lasix 20mg daily @12 filled 11/23/22 30d/s what was entered on previously entered med list 40mg daily-ext med history shows hydroxyzine hcl 25mg hs and 25mg daily prn ax previously entered med list has 25mg hs-previously entered med list has desmopressin 0.2mg hs ext shows last filled 07/05/22 30d/s pharmacy not open to verify if filled since then- Addendum entered by Margaret Gibson 12/18/22 13:54: called [facility] again phone number we have list as [phone] pt states number is [phone] called both still no answer and no mar or tar in pts chart on [facility] Original Note: pt is from [facility]-pt states [facility]udy mahajan is the person who takes care of her medications called and no answer-[facility] [phone] is no open on sat or sun
[2022-12-18] MEDS: potassium chloride ER 20 mEq Tablet PO (09:17)
[2022-12-18] MEDS: sertraline 50 mg Tablet 150 MG PO (09:17)
[2022-12-18] MEDS: FUROsemide 40 mg Tablet PO (09:17)
[2022-12-18] MEDS: losartan 50 mg Tablet 25 MG PO (09:18)
[2022-12-18] MEDS: buPROPion XL (24 HR) 300 mg Tablet PO (09:18)
[2022-12-18] MEDS: apixaban 5 mg Tablet PO ×2 (09:18→20:13)
[2022-12-18] MEDS: gabapentin 300 mg Capsule 600 MG PO ×3 (09:18→20:13)
[2022-12-18] MEDS: levothyroxine 100 mcg Tablet PO (09:18)
[2022-12-18] MEDS: spironolactone 25 mg Tablet 12.5 MG PO (09:20)
[2022-12-18] MEDS: vancomycin 1,000 MG in sodium chloride 0.9% 250 ML 250 MG IV ×2 (09:23→20:11)
[2022-12-18] MEDS: OXcarbazepine 300 mg Tablet PO ×2 (10:19→20:13)
--- NOTE | 2022-12-18 12:46 | P.PN_ITS ---
Subjective Subjective: Patient tells me that she she has a rash under her breasts, under her right pannus, it continues to itch and bother her, no fevers, no chills she tells me that she saw Dr. Mcintyre for this, was prescribed a ointment, however the prescription was lost, so she was not able to pick it up at her facility requires scripts, they can pick over medication [id number] Vitals/I&O/Wt Last Vital Signs Temp 97.7 F 12/18/22 11:10 Pulse 85 12/18/22 11:10 Resp 16 12/18/22 11:10 BP 154/78 12/18/22 11:10 Pulse Ox 91 12/18/22 11:10 O2 Del Method Nasal Cannula 12/18/22 11:10 O2 Flow Rate 2 12/18/22 10:30 12/17/22 12/18/22 12/18/22 22:59 06:59 14:59 Intake Total 150 / 150 250 / 250 Balance 150 / 150 250 / 250 Weight last 48 hrs Weight 220.446 kg Physical Exam Const: COMMON NORMALS: no acute distress and patient oriented x3 Resp: COMMON NORMALS: normal respiratory effort, No retractions, No use of accessory muscles and clear to auscultation bilaterally AUSCULTATION: clear to auscultation bilaterally Cardio: COMMON NORMALS: regular rate, regular rhythm, S1 normal heart sound present and S2 normal heart sound present RATE: regular rate RHYTHM: regular rhythm HEART SOUNDS: S1 normal heart sound present and S2 normal heart sound present GI: COMMON NORMALS: Normal to inspection, nondistended, normoactive bowel sounds present and non-tender Extremity: COMMON NORMALS: no pedal edema Neuro: COMMON NORMALS: patient oriented x3 Psych: COMMON NORMALS: mental status grossly normal Skin: NARRATIVE SKIN EXAM: Right pannus, large area of erythema, moisture, foul-smelling, along right pannus, extending towards the left Data 12/17/22 21:53 12/17/22 21:53 Micro: Microbiology 12/17/22 21:50 Blood Culture - Preliminary Blood SPECIMEN COLLECTED 12/17/22 21:53 Blood Culture - Preliminary Blood SPECIMEN COLLECTED A&P Assessment and plan (1) Candidiasis, intertriginous: (2) Cellulitis: Plan 37-year-old female with morbid obesity and lack of daily hygiene with history of extensive erythematous rash in the lower abdominal folds presented with chills increased redness and discharge from the rash likely secondary to cellulitis superimposed on intertriginous candidiasis We will start IV vancomycin 1 g every 12 hour IV fluconazole 200 mg daily Keep area clean and dry, frequently moisture, topical nystatin Resume home medications IV Pepcid 20 mg every 12 hours for stress ulcer prophylaxis She is on Eliquis for history of suspected PE no need for further DVT prophylaxis She is full code Attestations Medical Necessity Statement*: Patient requires hospitalization for intertriginous cellulitis with candidiasis Coding Level of Care Code Acute Code for [facility] Diagnoses Candidiasis, intertriginous B37.2 Cellulitis L03.90
[2022-12-18] MEDS: fluticasone nasal spray 16gm Btl 1 SPRAY INTRANASAL (13:03)
[2022-12-18] MEDS: lurasidone 80 mg Tablet 40 MG PO (13:04)
--- NOTE | 2022-12-18 20:11 | PC.NURSE ---
Patient had nasal cannula off when LOG CHIPPER went in to do vitals. Pts O2 was at 77%. Pt was refusing to wear cannula, nurse came in and told the patient 70s and 80s O2 is too low. Pt argued she is fine and doesn't need the O2 bc she is not short of breath at all and has low stats at home too. Pt put on nasal cannula and after going back and forth on stat numbers, she finally went up to 93%. Patient is noncompliant with O2 and determined she's fine without the oxygen. Pt was redirected on several attempts by the nurse but does not acknowledge/care the importance of her oxygen levels.
[2022-12-18] MEDS: hyDROXYzine 25 mg Capsule PO (20:13)
[2022-12-18] MEDS: nystatin powder 15 gm Btl 1 APPLIC TOPICAL (20:13)
[2022-12-18] MEDS: fluconazole premix 200 MG/100 ML PREMIX 100 MG IV (21:52)
[2022-12-19] MEDS: lurasidone 80 mg Tablet 40 MG PO ×2 (00:53→09:19)
[2022-12-19 04:00] VITALS: BP 167/91; PULSE 79; RESP 34; TEMP 36.6; O2SAT 90
[2022-12-19] MEDS: famotidine 20 mg/2 mL INJ IVP (05:12)
[2022-12-19 07:06] VITALS: BP 138/81; PULSE 82; RESP 18; TEMP 36.9; O2SAT 92
[2022-12-19 09:18] VITALS: BP 138/81
[2022-12-19] MEDS: OXcarbazepine 300 mg Tablet PO (09:18)
[2022-12-19] MEDS: losartan 50 mg Tablet 25 MG PO (09:18)
[2022-12-19] MEDS: apixaban 5 mg Tablet PO (09:18)
[2022-12-19] MEDS: sertraline 50 mg Tablet 150 MG PO (09:18)
[2022-12-19] MEDS: potassium chloride ER 20 mEq Tablet PO (09:19)
[2022-12-19] MEDS: levothyroxine 100 mcg Tablet PO (09:19)
[2022-12-19] MEDS: gabapentin 300 mg Capsule 600 MG PO ×2 (09:19→14:24)
[2022-12-19] MEDS: FUROsemide 40 mg Tablet PO (09:19)
[2022-12-19] MEDS: vancomycin 1,000 MG in sodium chloride 0.9% 250 ML 250 MG IV (09:20)
[2022-12-19] MEDS: buPROPion XL (24 HR) 300 mg Tablet PO (09:20)
[2022-12-19] MEDS: nystatin powder 15 gm Btl 1 APPLIC TOPICAL (09:20)
[2022-12-19] MEDS: spironolactone 25 mg Tablet 12.5 MG PO (09:20)
[2022-12-19 09:56] VITALS: PULSE 90; RESP 18; O2SAT 90
--- NOTE | 2022-12-19 10:47 | PM.DCS ---
Discharge Providers Date of Admission: 12/18/22 00:38 Date of Discharge: December 19, 2022 Attending Provider at Admission: Clarisse Gonzalez MD Attending Provider at Discharge: Tito Calle MD Primary Care Provider: RANDY Stevens Diagnoses at Discharge Discharge Diagnosis (1) Candidiasis, intertriginous: Status: Acute (2) Cellulitis: Status: Acute Reason for Visit Reason for Visit: rash on abdomin Hospital Course Hospital Course Deann Vega is a 37 year old female with history of morbid obesity schizophrenia GERD fibromyalgia IBS anxiety depression CKD Prader martha syndrome presented with complaint of macular rash in the lower abdomen and inner thighs since few months.? She was brought in by the clinical services consultant for complaint of off-and-on hot flashes and chills since last few days.? She has a history of erythematous rash to her lower abdomen in the abdominal folds extending to inner thighs since July 25.? She has been on topical treatment for the rash but with no improvement.? As per the clinical services consultant the rash is getting worse with serosanguineous and occasional bloody discharge.? She reports taking bath every third or fourth day.? Denies any fever cold cough chest pain nausea vomiting urinary or bowel complaints. July 2022 erythema and crusting in the abdominal pannus with significant dependent edema.? Scattered pink eczematous lesions with satellite papules extending from the intertriginous folds onto the lateral thighs towards the buttocks representing more like fungal rash. Patient presents to [facility] for intertriginous right pannus cellulitis, with this severe fungal infection. Received IV antiobitiocs, and antifungals wound care , nystatin, overall clinically improved. Will discharge on PO diflucan for 5 days, nystatin twice daily,, advised to keep area clean and dry, doxycycline for 7 days. Physical Exam Const: COMMON NORMALS: no acute distress and patient oriented x3 Resp: COMMON NORMALS: normal respiratory effort, No retractions, No use of accessory muscles and clear to auscultation bilaterally AUSCULTATION: clear to auscultation bilaterally Cardio: COMMON NORMALS: regular rate, regular rhythm, S1 normal heart sound present and S2 normal heart sound present RATE: regular rate RHYTHM: regular rhythm HEART SOUNDS: S1 normal heart sound present and S2 normal heart sound present GI: COMMON NORMALS: Normal to inspection, nondistended, normoactive bowel sounds present and non-tender Extremity: COMMON NORMALS: no pedal edema Neuro: COMMON NORMALS: patient oriented x3 Psych: COMMON NORMALS: mental status grossly normal Skin: NARRATIVE SKIN EXAM: Skin referral, pannus, right, has erythema, no active drainage, scaling, significantly improved Discharge Data Studies Completed and Pending Completed Studies During Hospitalization Category Date Time Status XR chest 1V portable [id number] Stat Exams 12/17/22 21:38 Completed Pending at discharge Category Date Time Status Blood Culture Stat Lab 12/17/22 21:50 Results Fungal Culture Hair/Skin/Nail Routine Lab 12/17/22 22:16 Received Urine Culture Stat Lab 12/18/22 01:03 Results Vancomycin Trough Timed Lab 12/19/22 20:00 Ordered Radiology Impressions Chest X-Ray 12/17/22 21:38 IMPRESSION: Cardiomegaly, pulmonary vascular congestion and interstitial edema. Laboratory Results WBC 12.33 10^3/uL (3.29-11.43) H 12/17/22 21:53 RBC 5.07 10^6/uL (3.85-5.65) 12/17/22 21:53 Hgb 13.60 g/dL (11.27-16.99) 12/17/22 21:53 Hct 47.6 % (36-47) H 12/17/22 21:53 MCV 93.9 fl (85-98) 12/17/22 21:53 MCH 26.8 pg (27-33) L 12/17/22 21:53 MCHC 28.6 g/dL (30-55) L 12/17/22 21:53 RDW 18.9 % (12.1-15.1) H 12/17/22 21:53 Plt Count 261 10^3/cmm (157-399) 12/17/22 21:53 MPV 11.4 fL (7.4-10.4) H 12/17/22 21:53 Neut % (Auto) 75.2 % 12/17/22 21:53 Lymph % (Auto) 14.4 % 12/17/22 21:53 [place] % (Auto) 6.7 % 12/17/22 21:53 Eos % (Auto) 2.5 % 12/17/22 21:53 Baso % (Auto) 0.7 % 12/17/22 21:53 Neut # (Auto) 9.26 10^3/uL (1.8-7.7) H 12/17/22 21:53 Lymph # (Auto) 1.8 10^3/uL (0.8-4.8) 12/17/22 21:53 [place] # (Auto) 0.8 10^3/uL (0.2-0.9) 12/17/22 21:53 Eos # (Auto) 0.3 10^3/uL (0.0-0.8) 12/17/22 21:53 Baso # (Auto) 0.1 10^3/uL (0.0-0.1) 12/17/22 21:53 Nucleated RBC % (auto) 0.3 % 12/17/22 21:53 Nucleated RBCs # 0.0 /100WBC 12/17/22 21:53 Sodium 140 mmol/L (136-145) 12/17/22 21:53 Potassium 4.3 mmol/L (3.5-5.1) 12/17/22 21:53 Chloride 98 mmol/L (98-107) 12/17/22 21:53 Carbon Dioxide 35 mmol/L (22-29) H 12/17/22 21:53 Anion Gap 11.3 (5-19) 12/17/22 21:53 BUN 20 mg/dL (6-20) 12/17/22 21:53 Creatinine 1.1 mg/dL (0.5-0.9) H 12/17/22 21:53 GFR Calculation 55.9 mL/min (90-130) L 12/17/22 21:53 Glucose 103 mg/dL (65-115) 12/17/22 21:53 Calculated Osmolality 293 mOsm/kg (285-295) 12/17/22 21:53 Lactic Acid 1.7 mmol/L (0.5-2.2) 12/17/22 21:53 Calcium 8.8 mg/dL (8.5-10.5) 12/17/22 21:53 Total Bilirubin 0.4 mg/dL (0.15-1.2) 12/17/22 21:53 AST 15 U/L (0-32) 12/17/22 21:53 ALT 13 U/L (0-33) 12/17/22 21:53 Alkaline Phosphatase 206 U/L (35-105) H 12/17/22 21:53 Total Protein 7.3 g/dL (6.6-8.7) 12/17/22 21:53 Albumin 3.9 g/dL (3.5-5.2) 12/17/22 21:53 Globulin 3.4 g/dL (1.3-4.6) 12/17/22 21:53 Urine Color Yellow (Yellow) 12/18/22 01:03 Urine Appearance Clear (CLEAR) 12/18/22 01:03 Urine pH 6 (5-7) 12/18/22 01:03 Ur Specific [place] 1.010 (1.005-1.030) 12/18/22 01:03 Urine Protein Trace (Negative) 12/18/22 01:03 Urine Glucose (UA) Norm (Normal) 12/18/22 01:03 Urine Ketones Negative (Negative) 12/18/22 01:03 Urine Blood Neg (Negative) 12/18/22 01:03 Urine Nitrate Negative (Negative) 12/18/22 01:03 Urine Bilirubin Neg (Negative) 12/18/22 01:03 Urine Urobilinogen Neg mg/dL (Negative) 12/18/22 01:03 Ur Leukocyte Esterase 2+ (Negative) H 12/18/22 01:03 Urine RBC Rare /hpf (0-2) 12/18/22 01:03 Urine WBC 0-4 /hpf (0-5) H 12/18/22 01:03 Ur Squamous Epith Cells 0-4 /hpf (0-5) H 12/18/22 01:03 Amorphous Sediment 2+ /hpf 12/18/22 01:03 Urine Bacteria Trace /hpf (NONE) 12/18/22 01:03 Urine Opiates Screen Negative ng/mL (Negative) 12/18/22 01:03 Ur Barbiturates Screen Negative ng/mL (Negative) 12/18/22 01:03 Ur Phencyclidine Scrn Negative ng/mL (Negative) 12/18/22 01:03 Ur Amphetamines Screen Negative ng/mL (Negative) 12/18/22 01:03 U Benzodiazepines Scrn Negative ng/mL (Negative) 12/18/22 01:03 Urine Cocaine Screen Negative ng/mL (Negative) 12/18/22 01:03 U Marijuana (THC) Screen Positive ng/mL (Negative) H 12/18/22 01:03 Ethyl Alcohol < 10 mg/dL (0-10) 12/17/22 21:53 SARS-CoV-2 Ag (Rapid) negative (Negative) 12/17/22 22:16 Vitals Last Vital Signs Temp 98.5 F 12/19/22 07:06 Pulse 90 12/19/22 09:56 Resp 18 12/19/22 09:56 BP 138/81 12/19/22 09:18 Pulse Ox 90 12/19/22 09:56 O2 Del Method Nasal Cannula 12/19/22 09:56 O2 Flow Rate 2 12/19/22 09:56 Discharge Plan Discharge Patient Disposition: Xfer Other Condition: Stable Prescriptions: New fluconazole [Diflucan] 150 mg tablet 150 mg PO DAILY 5 Days Qty: 5 0RF nystatin [Nystop] 100,000 unit/gram Powder 1 applic topical BID 30 Days Qty: 60 0RF doxycycline hyclate 100 mg tablet 100 mg PO BID 7 Days Qty: 14 0RF Continued Eucerin Cream 1 applic topical BID PRN (Reason: unknown) lidocaine [Salonpas (lidocaine)] 4 % adhesive patch,medicated 1 patch topical DAILY PRN (Reason: Pain) ciclopirox 0.77 % cream 1 applic topical BID 28 Days Qty: 30 2RF Rx Instructions: Apply to red areas twice a day, as needed. triamcinolone acetonide 0.1 % ointment 1 applic topical BID Qty: 30 1RF Rx Instructions: Apply to affected areas twice a day, two times a week; for no more than 2 months. triamcinolone acetonide 0.1 % ointment 1 applic topical BID Qty: 454 0RF Rx Instructions: Apply to affected areas twice daily for 2 weeks until follow up norethindrone (contraceptive) 0.35 mg tablet 0.35 mg PO DAILY@08 Qty: 84 3RF spironolactone 25 mg tablet 12.5 mg PO DAILY (DME) Blood Pressure Cuff Misc See Rx Instructions .Route Qty: 1 0RF Rx Instructions: As directed losartan 25 mg tablet See Rx Instructions .ROUTE .COMPLEX Qty: 30 3RF Dose Instruction: TAKE ONE TABLET BY MOUTH DAILY Rx Instructions: TAKE ONE TABLET BY MOUTH DAILY diphenhydramine HCl [Banophen] 25 mg Capsule 25 mg PO Q6H PRN (Reason: Allergy Symptoms) loperamide 2 mg Capsule 2 mg PO Q8H PRN (Reason: Diarrhea) desmopressin 0.2 mg Tablet 0.2 mg PO BEDTIME@20 oxcarbazepine 300 mg Tablet 300 mg PO BID@08,20 dicyclomine 10 mg Capsule 10 mg PO TID PRN (Reason: Abdominal Discomfort) cetirizine 10 mg Tablet 10 mg PO DAILY@08 levothyroxine 100 mcg Tablet 100 mcg PO DAILY@08 famotidine 20 mg Tablet 20 mg PO DAILY@08 hydroxyzine HCl 25 mg Tablet 25 mg PO BEDTIME@20 fluticasone propionate 50 mcg/actuation [place],Suspension 1 spray INTRANASAL DAILY@14 sertraline 50 mg Tablet 150 mg PO DAILY@08 bupropion HCl 300 mg Tablet Extended Release 24 Hr 300 mg PO DAILY@08 potassium chloride 20 mEq Tablet Extended Release 20 meq PO DAILY@08 gabapentin 600 mg Tablet 600 mg PO TID@08,14,20 calcium carbonate-vitamin D3 [Oyster Shell Calcium-Vit D3] 500 mg(1,250mg) -200 unit Tablet 1 tab PO DAILY@08 ergocalciferol (vitamin D2) [Vitamin D2] 1,250 mcg (50,000 unit) capsule 50,000 unit PO Q7D Rx Instructions: on TUESDAY Eliquis 5 mg tablet 5 mg PO BID@08,20 furosemide 40 mg tablet 40 mg PO DAILY@08 Neosporin (irg-nsp-qkpsm) 3.5mg-400 unit- 5,000 unit/gram Ointment 1 applic TOPICAL BID PRN (Reason: unknown) epinephrine [EpiPen 2-Norm] 0.3 mg/0.3 mL Auto-Injector 0.3 mg IM Q4H PRN (Reason: Allergic Reaction) meloxicam 7.5 mg Tablet 7.5 mg PO DAILY lidocaine 5 % Adhesive Patch,Medicated 1 patch TOPICAL DAILY Rx Instructions: leave on most painful area for up to 12 hrs Icy Rub Gel 1 applic TOPICAL TID Calcium 600 + D(3) 600 mg-10 mcg (400 unit) Tablet 1 tab PO DAILY olopatadine 0.2 % drops 1 drp ophthalmic (eye) DAILY PRN (Reason: Dry Eye(S)) Latuda 80 mg Tablet 40 mg PO BID Rx Instructions: must administer with food (at least 350 calories) Probiotic 3 billion cell Capsule 3,000 mmu cells PO DAILY Rx Instructions: administer with a meal Cough Drops 5.4 mg Lozenge 5.4 mg MUCOUS MEMBRANE Q4H PRN (Reason: Cough) Medrol (Norm) 4 mg tablets,dose pack See Rx Instructions .ROUTE .COMPLEX Qty: 21 0RF Rx Instructions: orally per package directions albuterol sulfate 90 mcg/actuation HFA aerosol inhaler 2 inh inhalation Q4H PRN (Reason: shortness of breath or wheezing) Qty: 6.7 1RF Discontinued fluconazole [Diflucan] 150 mg tablet 150 mg PO ONCE Qty: 1 0RF Discharge Orders: Discharge Order (Routine); Ordered 12/19/22 Ordered By: Tito Calle Referrals: Fern Aguilar FNP [Primary Care Provider] - Discharge Diet: Cardiac Discharge Activity: Resume usual activity Patient Instructions: Opioid Safety Discharge Attestations Time Spent in Discharge Care*: greater than 30 min Status at Discharge: Cognitive status at discharge: cognitively intact, Behavioral status at discharge: cooperative, Quality Metrics Clinical Quality Measures [ No reported AMI, CVA or VTE this stay] Coding Level of Care Code 52978 Total time (in minutes) for Discharge: 45 Diagnoses Candidiasis, intertriginous B37.2 Cellulitis L03.90
[2022-12-19 12:00] VITALS: BP 106/68; PULSE 83; RESP 18; TEMP 36.7; O2SAT 90
[2022-12-19] MEDS: fluticasone nasal spray 16gm Btl 1 SPRAY INTRANASAL (14:24)
[2022-12-19 15:51] VITALS: BP 106/68; PULSE 83; RESP 18; TEMP 36.7; O2SAT 90
--- NOTE | 2022-12-20 09:52 | PC.NURSE ---
Patent's medications were sent [facility].
== END 2022-12-19 15:15 | disposition home or self-care (01) | DRG 603 ==
LOC: ER 23:54 → MEDSURG 12-18 00:52
PROVIDERS: Admitting Provider Internal Medicine; Emergency Provider Nurse Practitioner Family; PCP Nurse Practitioner Family; Visit Provider Family Medicine
DX: L03.116 Cellulitis of left lower limb (principal); Z68.45 Body mass index [BMI] 70 or greater, adult; N17.9 Acute kidney failure, unspecified; L03.115 Cellulitis of right lower limb; B37.2 Candidiasis of skin and nail; E66.01 Morbid (severe) obesity due to excess calories; F20.9 Schizophrenia, unspecified; K21.9 Gastro-esophageal reflux disease without esophagitis; M79.7 Fibromyalgia; F41.9 Anxiety disorder, unspecified; Z79.01 Long term (current) use of anticoagulants; Z79.51 Long term (current) use of inhaled steroids; E03.9 Hypothyroidism, unspecified; F17.200 Nicotine dependence, unspecified, uncomplicated
CPT/HCPCS: 36415; 71045; 80053; 80306; 80307; 81001; 83605; 85025; 87040; 87086; 87426; 96365; 96375; 99285; J0696; J1450; J3370; J3490; J7050

== ENCOUNTER 2023-01-17 10:30 | Inpatient (IN) | payer MEDICAID, SELFPAY ==
[2023-01-17] VITALS (9 sets, daily range): BP systolic 103–141; BP diastolic 63–84; PULSE 81–101; RESP 15–22; TEMP 36.6–36.8; O2SAT 81–98; BMI 81.5
--- NOTE | 2023-01-17 11:57 | ED_ITS ---
HPI - Skin/Abscess/Foreign Bdy General: Chief complaint: Skin/Abscess/Foreign Body Stated complaint: rash under belly Time Seen by Provider: 01/17/23 11:34 History of Present Illness: 37-year-old female with morbid obesity presents emergency room diffuse redness around the groin and lower abdomen region for the past few days. Patient noticed increased pain and streaking to the upper abdomen. Patient with some malaise but denies any nausea, vomiting, cough or recent sick contacts. Associated symptoms: Reports chills and fever(s) Review of Systems General: Reports: 10 or more systems reviewed and unremarkable except in HPI and below Const: Reports: fever(s), chills and malaise Resp: Denies: dyspnea, productive cough, non-productive cough, wheezing, stridor, pain on inspiration, change in phlegm color or hemoptysis : Reports: dysuria; Denies: flank pain, difficulty voiding, urinary frequency, urinary urgency or urinary hesitancy Skin/Breast: Reports: erythema, skin tenderness and skin swelling PFSH ED PFSH: Medical History (Updated 01/17/23 @ 18:03 by Marilee Gomes MD) Benign essential HTN Bipolar disorder Body mass index (BMI) greater than 70 in adult Chronic hypoxic respiratory failure Congestive heart failure Echo 06/2021: LV systolic function normal with EF of 55 to 60%, mild pulmonary hypertension with RVSP 35-40mmHg Depression Elevated brain natriuretic peptide (BNP) level Fibromyalgia syndrome Hypothyroidism [facility] endocrinology--Dr Haider Morbid obesity BMI 80+; has some features of pradar willi syndrome, but states she was tested at [facility] and does not carry formal diagnosis Nocturnal enuresis Nocturnal hypoxemia Nocturnal polyuria Obesity hypoventilation syndrome Osteoarthritis Psychiatric disorder Sleep apnea Sleep study 07/2021 severe sleep apnea with hypoxemia. Sleep titration recommended. Non-invasive ventilator recommended. As of 01/2023 has not had titration study. Suspected pulmonary embolism diagnosis in early 2021 for which chronic anticoagulation initiated Surgical History H/O laparoscopy (~2010) treatment of ovarian cysts; performed in [place] History of cholecystectomy 2017-lap History of colonoscopy with polypectomy 2017 History of dental surgery History of placement of ear tubes History of tonsillectomy and adenoidectomy Family History Grandmother Breast cancer Maternal--dx age unknown Diabetes Maternal Hypertension Maternal Mother Breast cancer dx age 40's ; unknown if hormone receptive Thyroid disease Grandfather No problems noted. Sister Thyroid disease Denies family history of Colon cancer Ovarian cancer Hypercholesteremia Uterine cancer Stroke Social History Smoking and tobacco/nicotine status: current every day tobacco/nicotine user Physical Exam Const: COMMON NORMALS: patient oriented x3 NUTRITIONAL APPEARANCE: obese HENMT: COMMON NORMALS: normocephalic, atraumatic, hearing grossly normal bilaterally, external ears normal, EAC's normal, TM's normal bilaterally, Normal external nose present, Normal nasal mucous membranes and turbinates present, moist oral mucous membranes, oropharynx normal, dentition normal and gingiva normal HEAD & SCALP: normocephalic and atraumatic NOSE: Normal external nose present and Normal nasal mucous membranes and turbinates present EXTERNAL EAR: Yes external ears normal EXTERNAL AUDITORY CANAL: EAC's normal TYMPANIC MEMBRANE: TM's normal bilaterally Eye: COMMON NORMALS: Equal, round and reactive pupils present, EOMs intact bilaterally, conjunctivae normal, no scleral icterus, no papilledema, normal visual mayers by confrontation and fundi normal bilaterally CONJUNCTIVA: Yes conjunctivae normal PUPIL: Yes Equal, round and reactive pupils present DIRECT OPHTHALMOSCOPY: Yes no papilledema and Yes fundi normal bilaterally Neck/C-Spine: COMMON NORMALS: full ROM, no lymphadenopathy, supple, no meningeal signs, no JVD, Thyroid normal and No carotid bruits THYROID: Thyroid normal Chest: COMMONS NORMALS: normal inspection of the chest, normal palpation of entire chest wall, normal inspection of the breasts and normal palpation of the breasts Breast/axilla inspection: Yes normal inspection of the breasts BREAST/AXILLA PALPATION: Yes normal palpation of the breasts Resp: COMMON NORMALS: normal respiratory effort, No retractions, No use of accessory muscles, clear to auscultation bilaterally and percussion normal AUSCULTATION: clear to auscultation bilaterally PERCUSSION: percussion normal Cardio: COMMON NORMALS: no JVD Neuro: COMMON NORMALS: patient oriented x3 MENINGEAL SIGNS: Yes no meningeal signs Course Vital Signs: Vital signs: Vital Signs Temperature 97.9 F 01/17/23 19:05 Pulse Rate 97 01/17/23 20:00 Respiratory Rate 18 01/17/23 20:00 Blood Pressure 131/84 01/17/23 19:05 Pulse Oximetry 85 L 01/17/23 20:00 Oxygen Delivery Me thod Nasal Cannula 01/17/23 20:00 Oxygen Flow Rate 3 01/17/23 20:15 MDM - Skin/Abscess/Foreign Bdy Medicial Decision Making Patient made comfortable emergency room and had extensive work-up with CBC, CMP. Patient was given IV antibiotics. Discussed patient with the hospitalist patient will be admitted for further evaluation and treatment. Differential Diagnosis Likely dermatophytosis, urticaria, herpes zoster, allergic reaction to drug and cellulitis Lab Data 01/17/23 12:12 01/17/23 12:12 Laboratory Results WBC 13.22 10^3/uL (3.29-11.43) H 01/17/23 12:12 RBC 5.20 10^6/uL (3.85-5.65) 01/17/23 12:12 Hgb 13.30 g/dL (11.27-16.99) 01/17/23 12:12 Hct 47.9 % (36-47) H 01/17/23 12:12 MCV 92.1 fl (85-98) 01/17/23 12:12 MCH 25.6 pg (27-33) L 01/17/23 12:12 MCHC 27.8 g/dL (30-55) L 01/17/23 12:12 RDW 19.8 % (12.1-15.1) H 01/17/23 12:12 Plt Count 223 10^3/cmm (157-399) 01/17/23 12:12 MPV 10.9 fL (7.4-10.4) H 01/17/23 12:12 Neut % (Auto) 76.2 % 01/17/23 12:12 Lymph % (Auto) 12.4 % 01/17/23 12:12 [place] % (Auto) 7.0 % 01/17/23 12:12 Eos % (Auto) 3.3 % 01/17/23 12:12 Baso % (Auto) 0.7 % 01/17/23 12:12 Neut # (Auto) 10.09 10^3/uL (1.8-7.7) H 01/17/23 12:12 Lymph # (Auto) 1.6 10^3/uL (0.8-4.8) 01/17/23 12:12 [place] # (Auto) 0.9 10^3/uL (0.2-0.9) 01/17/23 12:12 Eos # (Auto) 0.4 10^3/uL (0.0-0.8) 01/17/23 12:12 Baso # (Auto) 0.1 10^3/uL (0.0-0.1) 01/17/23 12:12 Nucleated RBC % (auto) 0.2 % 01/17/23 12:12 Nucleated RBCs # 0.0 /100WBC 01/17/23 12:12 Sodium 138 mmol/L (136-145) 01/17/23 12:12 Potassium 4.2 mmol/L (3.5-5.1) 01/17/23 12:12 Chloride 97 mmol/L (98-107) L 01/17/23 12:12 Carbon Dioxide 36 mmol/L (22-29) H 01/17/23 12:12 Anion Gap 9.2 (5-19) 01/17/23 12:12 BUN 12 mg/dL (6-20) 01/17/23 12:12 Creatinine 1.0 mg/dL (0.5-0.9) H 01/17/23 12:12 GFR Calculation 62.4 mL/min (90-130) L 01/17/23 12:12 Glucose 113 mg/dL (65-115) 01/17/23 12:12 Calculated Osmolality 287 mOsm/kg (285-295) 01/17/23 12:12 Calcium 8.9 mg/dL (8.5-10.5) 01/17/23 12:12 Total Bilirubin 0.3 mg/dL (0.15-1.2) 01/17/23 12:12 AST 14 U/L (0-32) 01/17/23 12:12 ALT 11 U/L (0-33) 01/17/23 12:12 Alkaline Phosphatase 211 U/L (35-105) H 01/17/23 12:12 Total Protein 6.9 g/dL (6.6-8.7) 01/17/23 12:12 Albumin 3.5 g/dL (3.5-5.2) 01/17/23 12:12 Globulin 3.4 g/dL (1.3-4.6) 01/17/23 12:12 No radiology studies performed this visit Discharge Plan Discharge Patient Disposition: Placed in Observation Admit Provider: Marilee Gomes Clinical Impression: Cellulitis, Morbid obesity Coding Level of Care Code ED Project Coordinator Rn for Luis Carlos Lee
[2023-01-17 12:24] LABS: Basophils # 0.1 10^3/uL (0.0-0.1); Basophils % 0.7 %; Eosinophils # 0.4 10^3/uL (0.0-0.8); Eosinophils % 3.3 %; Hematocrit 47.9 % (36-47); Lymphocytes # 1.6 10^3/uL (0.8-4.8); Lymphocytes % 12.4 %; Mean Corpuscular HGB Conc 27.8 g/dL (30-55); Mean Corpuscular Hemoglobin 25.6 pg (27-33); Mean Corpuscular Volume 92.1 fl (85-98); Mean Platelet Volume 10.9 fL (7.4-10.4); Monocytes # 0.9 10^3/uL (0.2-0.9); Neutrophils # 10.09 10^3/uL (1.8-7.7); Neutrophils % 76.2 %; Nucleated Red Blood Cells % 0.2 %; Platelet Count 223 10^3/cmm (157-399); Red Cell Distribution Width 19.8 % (12.1-15.1); White Blood Count 13.22 10^3/uL (3.29-11.43)
[2023-01-17 12:39] LABS: Alanine Aminotransferase 11 U/L (0-33); Albumin Level 3.5 g/dL (3.5-5.2); Alkaline Phosphatase 211 U/L (35-105); Anion Gap 9.2 (5-19); Aspartate Amino Transferase 14 U/L (0-32); Blood Urea Nitrogen 12 mg/dL (6-20); Calcium 8.9 mg/dL (8.5-10.5); Carbon Dioxide 36 mmol/L (22-29); Chloride 97 mmol/L (98-107); Globulin 3.4 g/dL (1.3-4.6); Glomerular Filtration Rate 62.4 mL/min (90-130); Glucose 113 mg/dL (65-115); Osmolality Calculated 287 mOsm/kg (285-295); Potassium 4.2 mmol/L (3.5-5.1); Sodium 138 mmol/L (136-145); Total Bilirubin 0.3 mg/dL (0.15-1.2); Total Protein 6.9 g/dL (6.6-8.7)
[2023-01-17] MEDS: vancomycin 2,000 MG/400 ML PIGGYBACK 200 MG IV (12:45)
--- NOTE | 2023-01-17 13:56 | P.HP_ITS ---
Providers/Chief Complaint Admitting Physician: Marilee Gomes MD Primary Care Provider: RANDY Stevens Chief Complaint: rash under belly History of Present Illness Deann Vega is a 37 year old female who presented to the emergency room with chief complaint of worsening rash. She has had issues with various skin rashes for quite some time. She was seen by dermatology in July of this year for an eczematous type rash to bilateral thighs and buttocks extending into the ab dominal pannus. Pictures are documented from that visit and the clinic note dated 07/13/2022. Punch biopsy was done. From what I can tell in the various notes she had contact dermatitis, intertrigo, stasis dermatitis and erosion as findings from dermatology. It looks like she was recommended topical moisturizers, steroids, nystatin powder, barrier creams, mupirocin ointment and for her lower extremities compression stockings. At follow-up in November of this year the contact dermatitis and erosions were resolved, intertrigo was stable around the periumbilical region with recommendations for nystatin powder daily and ketoconazole cream as needed for flareups. I do not see that the various rashes extended into her groin at that time though clearly did involve portions of the pannus. Right at a month ago she presented to the emergency room with erythema and crusting of the abdominal pannus with what was described as pink eczematous lesions with satellite papules extending from intertriginous folds onto lateral thighs and towards the buttocks . It does not appear there was extension to the groin then. She was treated empirically with vancomycin as well as IV fluconazole and discharged the day after admission with prescriptions for fluconazole and doxycycline orally along with nystatin powder. According to patient and person with her today, she never got better after that visit a month ago and instead has had worsening extension of erythema throughout her entire pannus down both upper thighs, right side worse than left and now and extending into the groin and involving both labia. She has broken skin with frequent burning skin pain. It hurts to touch and move. Pain is described as severe but feels like it is on the outside of the skin rather than inside. She has been quite embarrassed. She admits to having incontinence of urine at times. She spends almost all of her time sitting upright and so the areas involved do not get much in the way of air. She has noticed significant odor and says that she has been challenged to get help getting regular showers and keeping involved areas dry. She has continued to use nystatin powder, nystatin cream and other topical agents with no improvement. Today the pain was getting worse as was the odor and redness prompting visit to ER. After evaluation, request was made for admission for IV antibiotic therapy. History obtained from her and [facility] staff in room. Ms Vega has a guardian: Antoinette Mortensen, Public Integration Software Engineer [facility], . She resides at [facility], where Janee Garcia is the Yarn [employer]izer, . Ms Vega indicates challenges getting the follow up care she needs, such as specialist appointments and sleep study with titration, supplies for management of skin condition, inability to lose weight, as well as with some ADLs. Review of Systems General: Reports: Other (ROS as per HPI or as otherwise noted here) Const: Reports: other (reports unable to lose weight); Denies: fever(s) Eyes: Denies: change in vision ENMT: Denies: throat pain Card: Reports: edema, dyspnea on exertion and orthopnea Resp: Reports: dyspnea GI: Denies: vomiting or diarrhea : Reports: dribbling, nocturia (enuresis) and urinary incontinence; Denies: difficulty voiding Musc: Reports: extremity pain Skin/Breast: Reports: rash, pruritus, erythema, skin pain, skin tenderness, skin swelling, sores, non-healing lesions and lesions Neuro: Denies: involuntary movements Psych: Reports: other (curently doing okay, recently changed to abilify from latuda) Endo: Reports: other (on control pills) Myles/Lymph: Denies: easy bleeding Medications/Allergies Home Medications Medication Instructions Recorded Confirmed Last Taken Type bupropion HCl 300 mg 24 hr tablet, 300 mg PO DAILY@02/16/20 01/17/23 01/17/23 History extended release cetirizine 10 mg tablet 10 mg PO DAILY@02/16/20 01/17/23 01/17/23 History famotidine 20 mg tablet 20 mg PO DAILY@02/16/20 01/17/23 01/17/23 History fluticasone propionate 50 1 spray intranasal DAILY@14 02/16/20 01/17/23 01/16/23 History mcg/actuation nasal spray,suspension hydroxyzine HCl 25 mg tablet 25 mg PO BEDTIME@20 PRN Sleep 02/16/20 01/17/23 02/11/22 History levothyroxine 100 mcg tablet 100 mcg PO DAILY@08 02/16/20 01/17/23 01/17/23 History potassium chloride 20 mEq 20 meq PO DAILY@02/16/20 01/17/23 01/17/23 History tablet,extended release sertraline 50 mg tablet 150 mg PO DAILY@02/16/20 01/17/23 01/17/23 History gabapentin 600 mg tablet 600 mg PO TID@05/12/20 01/17/23 01/17/23 History diphenhydramine HCl 25 mg capsule 25 mg PO Q6H PRN Allergy Symptoms 07/24/20 01/17/23 Unknown History (Banophen) dicyclomine 10 mg capsule 10 mg PO TID PRN Abdominal 06/15/21 01/17/23 Unknown History Discomfort loperamide 2 mg capsule 2 mg PO Q8H PRN Diarrhea 06/15/21 01/17/23 06/14/21 History oxcarbazepine 300 mg tablet 300 mg PO BID@06/15/21 01/17/23 01/17/23 History lanolin alcohols-mineral 1 applic topical BID PRN unknown 07/01/21 01/17/23 Unknown History oil-w.petrolatum-ceresin topical cream (Eucerin topical cream) lidocaine 4 % topical patch 1 patch topical DAILY PRN Pain 07/01/21 01/17/23 01/16/23 History (Salonpas (lidocaine)) apixaban 5 mg tablet (Eliquis) 5 mg PO BID@,11/26/21 01/17/23 01/17/23 History epinephrine 0.3 mg/0.3 mL 0.3 mg IM Q4H PRN Allergic Reaction 11/26/21 01/17/23 Unknown History injection, auto-injector (EpiPen 2-Norm) ergocalciferol (vitamin D2) 1,250 50,000 unit PO Q7D 11/26/21 01/17/23 01/15/23 History mcg (50,000 unit) capsule (Vitamin D2) furosemide 40 mg tablet 40 mg PO DAILY@08 11/26/21 01/17/23 01/17/23 History neomycin-bacitracn Zn-polymyx 3.5 1 applic topical BID PRN unknown 11/26/21 01/17/23 Unknown History mg-400 unit-5,000 unit/gram top oint (Neosporin (tbi-hca-qgwab)) calcium carbonate 600 mg-vitamin 1 tab PO DAILY 02/12/22 01/17/23 01/17/23 History D3 10 mcg (400 unit) tablet (Calcium 600 + D(3)) lactobacillus combination no.4 3 3,000 mmu cells PO DAILY 02/12/22 01/17/23 01/17/23 History billion cell capsule (Probiotic) lidocaine 5 % topical patch 1 patch topical DAILY 02/12/22 01/17/23 01/16/23 History meloxicam 7.5 mg tablet 7.5 mg PO DAILY 02/12/22 01/17/23 01/17/23 History menthol 1 applic topical TID PRN unknown 02/12/22 01/17/23 Unknown History menthol 5.4 mg lozenges (Cough 5.4 mg mucous membrane Q4H PRN 02/12/22 01/17/23 Unknown History Drops) Cough olopatadine 0.2 % eye drops 1 drp ophthalmic (eye) DAILY PRN 02/12/22 01/17/23 Unknown History Dry Eye(S) albuterol sulfate 90 mcg/actuation 2 inh inhalation Q4H PRN shortness 06/25/22 01/17/23 Unknown Rx aerosol inhaler of breath or wheezing #6.7 grams spironolactone 25 mg tablet 12.5 mg PO DAILY 07/05/22 01/17/23 01/17/23 History miscellaneous medical supply #1 ea 07/07/22 01/17/23 Unknown Rx (Blood Pressure Cuff) nystatin 100,000 unit/gram topical 1 applic topical BID 30 days #60 12/19/22 01/17/23 01/17/23 Rx powder (Nystop) grams aripiprazole 10 mg tablet 10 mg PO DAILY 01/17/23 01/17/23 01/17/23 History ciclopirox 0.77 % topical cream 1 applic topical BID PRN Rash 01/17/23 01/17/23 Unknown History diclofenac sodium 1 % topical gel 4.5 inch topical QID PRN Pain 01/17/23 01/17/23 Unknown History furosemide 20 mg tablet See Rx Instructions .Route .COMPLEX 01/17/23 01/17/23 01/16/23 History losartan 25 mg tablet 25 mg PO DAILY 01/17/23 01/17/23 01/17/23 History norethindrone (contraceptive) 0.35 0.35 mg PO DAILY 01/17/23 01/17/23 01/17/23 History mg tablet pimecrolimus 1 % topical cream 1 applic topical BID 01/17/23 01/17/23 01/17/23 History (Elidel) Allergies Allergy/AdvReac Type Severity Reaction Status Date / Time acetaminophen [From Tylenol] Allergy ALGY-Rash Verified 12/17/22 21:22 aspirin Allergy ALGY-Rash Verified 12/17/22 21:22 azithromycin Allergy ALGY-Rash Verified 12/17/22 21:22 haloperidol [From Haldol] Allergy ADR-Seizure Verified 12/17/22 21:22 tramadol Allergy ADR-Seizure Verified 12/17/22 21:22 ibuprofen AdvReac Mild Unknown Verified 12/17/22 21:22 bee strings Allergy Anaphylaxis Uncoded 10/10/22 16:07 PFSH Acute PFSH: Medical History (Updated 01/17/23 @ 18:03 by Marilee Gomes MD) Benign essential HTN Bipolar disorder Body mass index (BMI) greater than 70 in adult Chronic hypoxic respiratory failure Congestive heart failure Echo 06/2021: LV systolic function normal with EF of 55 to 60%, mild pulmonary hypertension with RVSP 35-40mmHg Depression Elevated brain natriuretic peptide (BNP) level Fibromyalgia syndrome Hypothyroidism [facility] endocrinology--Dr Haider Morbid obesity BMI 80+; has some features of pradar willi syndrome, but states she was tested at [facility] and does not carry formal diagnosis Nocturnal enuresis Nocturnal hypoxemia Nocturnal polyuria Obesity hypoventilation syndrome Osteoarthritis Psychiatric disorder Sleep apnea Sleep study 07/2021 severe sleep apnea with hypoxemia. Sleep titration recommended. Non-invasive ventilator recommended. As of 01/2023 has not had titration study. Suspected pulmonary embolism diagnosis in early 2021 for which chronic anticoagulation initiated Surgical History H/O laparoscopy (~2010) treatment of ovarian cysts; performed in [place] History of cholecystectomy 2017-lap History of colonoscopy with polypectomy 2018 History of dental surgery History of placement of ear tubes History of tonsillectomy and adenoidectomy Family History Grandmother Breast cancer Maternal--dx age unknown Diabetes Maternal Hypertension Maternal Mother Breast cancer dx age 40's ; unknown if hormone receptive Thyroid disease Grandfather No problems noted. Sister Thyroid disease Denies family history of Colon cancer Ovarian cancer Hypercholesteremia Uterine cancer Stroke Social History Smoking and tobacco/nicotine status: current every day tobacco/nicotine user Vitals/I&O/Wt Last Vital Signs Temp 98.1 F 01/17/23 10:42 Pulse 81 01/17/23 12:56 Resp 21 H 01/17/23 10:42 BP 120/70 01/17/23 12:56 Pulse Ox 92 01/17/23 12:56 O2 Del Method Nasal Cannula 01/17/23 12:56 O2 Flow Rate 2 01/17/23 12:56 Weight last 48 hrs Weight 215.456 kg Physical Exam 2 Narrative: Patient is awake and alert, able to provide history. Morbidly obese. Sitting up in bed with her left leg hanging down. Difficulty lying flat. N ormocephalic. Extraocular movements are intact. Oropharynx with slightly dry mucous membranes. Neck is large but supple. Lungs are clear to auscultation bilaterally. Cardiovascular exam reveals distant heart sounds but regular rhythm. Upper abdomen is soft. Lower abdomen is also soft but very tender to palpation related to extensive skin changes. Please see images below for details. There is extensive erythema and loss of top layer of skin, some oozing that is not from cream or ointment. Entire region is wet and very malodorous. This extends from the most lateral portion of both hips around the lower portion of the pannus down into both right groins and intertriginous areas, extending into the labia majora bilaterally and down both upper thighs. Area of involvement and exudative material more extensive on the right than the left side however laterally on the left there are 2 large areas that are more deeply red with central loss of probably the second layer of skin. No areas of active blisters currently noted. No crepitus anywhere including in the labia, upper inner thigh and perineal area. She is tender to touch anywhere but describes the pain as being due to the open skin. During my examination Interdry was placed on the right side of the pannus and did provide tactile relief from the discomfort that she was experiencing. In the right lateral skin folds there is some chronic scabbing similar in appearance though not as prominent to those taken in July 2022. Pitting edema is noted to both distal extremities. Chronic stasis changes with erythema and scabbing noted to distal lower extremities. Speech is clear. Face is symmetric. No abnormal movements. Patient noted to be hypoxic when lying flat and oxygen at 2 L by nasal cannula was placed with improvement. Skin: OTHER: Data 01/17/23 12:12 01/17/23 12:12 Other Labs: Laboratory Results WBC 13.22 10^3/uL (3.29-11.43) H 01/17/23 12:12 RBC 5.20 10^6/uL (3.85-5.65) 01/17/23 12:12 Hgb 13.30 g/dL (11.27-16.99) 01/17/23 12:12 Hct 47.9 % (36-47) H 01/17/23 12:12 MCV 92.1 fl (85-98) 01/17/23 12:12 MCH 25.6 pg (27-33) L 01/17/23 12:12 MCHC 27.8 g/dL (30-55) L 01/17/23 12:12 RDW 19.8 % (12.1-15.1) H 01/17/23 12:12 Plt Count 223 10^3/cmm (157-399) 01/17/23 12:12 MPV 10.9 fL (7.4-10.4) H 01/17/23 12:12 Neut % (Auto) 76.2 % 01/17/23 12:12 Lymph % (Auto) 12.4 % 01/17/23 12:12 Bladen % (Auto) 7.0 % 01/17/23 12:12 Eos % (Auto) 3.3 % 01/17/23 12:12 Baso % (Auto) 0.7 % 01/17/23 12:12 Neut # (Auto) 10.09 10^3/uL (1.8-7.7) H 01/17/23 12:12 Lymph # (Auto) 1.6 10^3/uL (0.8-4.8) 01/17/23 12:12 Bladen # (Auto) 0.9 10^3/uL (0.2-0.9) 01/17/23 12:12 Eos # (Auto) 0.4 10^3/uL (0.0-0.8) 01/17/23 12:12 Baso # (Auto) 0.1 10^3/uL (0.0-0.1) 01/17/23 12:12 Nucleated RBC % (auto) 0.2 % 01/17/23 12:12 Nucleated RBCs # 0.0 /100WBC 01/17/23 12:12 Sodium 138 mmol/L (136-145) 01/17/23 12:12 Potassium 4.2 mmol/L (3.5-5.1) 01/17/23 12:12 Chloride 97 mmol/L (98-107) L 01/17/23 12:12 Carbon Dioxide 36 mmol/L (22-29) H 01/17/23 12:12 Anion Gap 9.2 (5-19) 01/17/23 12:12 BUN 12 mg/dL (6-20) 01/17/23 12:12 Creatinine 1.0 mg/dL (0.5-0.9) H 01/17/23 12:12 GFR Calculation 62.4 mL/min (90-130) L 01/17/23 12:12 Glucose 113 mg/dL (65-115) 01/17/23 12:12 Calculated Osmolality 287 mOsm/kg (285-295) 01/17/23 12:12 Calcium 8.9 mg/dL (8.5-10.5) 01/17/23 12:12 Total Bilirubin 0.3 mg/dL (0.15-1.2) 01/17/23 12:12 AST 14 U/L (0-32) 01/17/23 12:12 ALT 11 U/L (0-33) 01/17/23 12:12 Alkaline Phosphatase 211 U/L (35-105) H 01/17/23 12:12 Total Protein 6.9 g/dL (6.6-8.7) 01/17/23 12:12 Albumin 3.5 g/dL (3.5-5.2) 01/17/23 12:12 Globulin 3.4 g/dL (1.3-4.6) 01/17/23 12:12 Micro: Microbiology 01/17/23 12:16 Blood Culture - Preliminary Blood SPECIMEN COLLECTED 01/17/23 12:12 Blood Culture - Preliminary Blood SPECIMEN COLLECTED A&P Assessment and plan (1) Candidiasis, intertriginous: with likely secondary infection, progressively worsening, not able to achieve dryness, has some enuresis and daytime incontince at times, not known to be bessy betic, present on admission and to a degree since July of this year, actually several months prior to that. This is second admission in about a month for same condition. (2) Panniculitis: lower pannus, extension from above, present on admission (3) Lower extremity cellulitis: bilateral upper legs, extension from groin/above, present on admission (4) Body mass index (BMI) greater than 70 in adult: Current BMI 81. Has been evaluated for Pradar Willi in the past and while has some features (eating disorder, samll hands and feet, facial features) does not have a formal diagnosis after evaluation in [facility]. BMI is definitely impacting skin findings and ability to heal. (5) Chronic hypoxic respiratory failure: From obesity hypoventilation and untreated sleep apnea. Uses nocturnal oxygen only at home, but noted to have desaturations while in ER. Sleep study from 07/2021 showed severe apnea and sleep titration study recommended as was non- invasive home ventilator. Titiration study has not yet been done. (6) Chronic anticoagulation: On chronic eliquis for presumptive diagnosis of PE last year. (7) Congestive heart failure: Chronic with preserved ejection fraction, on chronic duiretics and losartan (8) Benign essential HTN: Managed with diretics and arb (9) Hypothyroidism: Acquired, on chronic levothyroxine (10) Psychiatric disorder: On chronic abilify (newest medication), sertraline, welbutrin, oxcarbazepine, hydroxyzine (11) Patient has guardian: Plan On chronic gabapentin, meloxicam and lidocaine patch prn for pain control On multiple topical agents prn and multiple other prn medications as shown in home mediation list Inpatient admission IV cefazolin Diflucan Had fungal cultures done last hospital stay now no growth for one month Nystatin powder Interdry Patient to lay supine as much as she can tolerate Browne to keep area dry Close monitoring for any acute skin changes, increased pain, blistering, hemorrhagic blisters, development of crepitus or continue extension of current areas of involvement Lotrisone cream to distal lower extremity stasis dermatitis Continue 40 mg lasix (holding 20 mg noon dose currently) and home aldactone Check BNP Continue home eliquis Oxygen not only with sleep but continuous As needed albuterol Check A1c, given severity of wounds, as not checked for 2 years that I can see, does not have current hyperglucemia on labs Check TSH Needs referral for sleep study with titration ordered by PCP to address untreated severe sleep apnea and hypoxemia. May need home oxygen at discharge. Needs home non-invasive ventilator. Continue home gabapentin and meloxicam Continue home psychiatric medications Most home PRN medications held presently Did continue probiotics Case management to assist with evaluating wound care management options after discharge regarding supplies (Interdry in particular), monitoring (wound care clinic a possibility), options for senior living or other assisted care (not sure she will agree based on current discussions), addressing her concerns about not getting adequate assistance with ADLs in home and other related DC needs. VTE prophylaxis: eliquis GI Prophylaxis: on home H2B Telemetry: not currently indicated Browne: ordered to help with wound/skin healing Line(s): peripheral IVs Disposition plan: [facility] based on current discussions but exploring options for longer term care of skin wounds in particular as these have been present since July 2022 or longer to differing degrees, now with 2nd admission in just over a month for same skin findings, which are actually worsening despite attempts at outpatient management. She has been seen by dermatology several times as well. Code Status: Full Code Supportive care otherwise Findings, concerns and plans were discussed with patient and city tax auditor in the room, who is updating Jose Weller and they were given an opportunity to ask questions. Attestations Medical Necessity Statement*: Anticipated stay greater than two midnights in this patient with extenisve skin involvement as described and shown. At high risk of progression to more extensive and severe wounds without immediate intervention given loss of top layer of skin over much of the area. Coding Level of Care Code 65328 High Time for a total of 90 minutes, includes reviewing past or interval history, examining/interviewing patient, counseling patient/family/other support, updating patient/family/other support, discussing plan of care with staff, documenting encounter and coordinating care Diagnoses Candidiasis, intertriginous B37.2 Panniculitis M79.3 Lower extremity cellulitis L03.119 Body mass index (BMI) greater than 70 in adult Z68.45 Chronic hypoxic respiratory failure J96.11 Chronic anticoagulation Z79.01 Congestive heart failure I50.9 Benign essential HTN I10 Hypothyroidism E03.9 Psychiatric disorder F99 Patient has guardian
[2023-01-17] MEDS: docusate sodium 100 mg Capsule PO (18:27)
[2023-01-17] MEDS: nystatin powder 15 gm Btl 1 APPLIC TOPICAL (18:28)
[2023-01-17] MEDS: fluconazole premix 400 MG/200 ML PIGGYBACK 200 MG IV (18:33)
[2023-01-17 20:17] LABS: Add Urine Microscopic? NO; Charge for UA Resulting for Rev
[2023-01-17 20:47] LABS: Bilirubin Urine Neg (Negative); Blood Urine Neg (Negative); Glucose Urine UA Norm (Normal); Ketones Urine Negative (Negative); Leukocyte Esterase Urine Negative (Negative); Nitrate Urine Negative (Negative); Protein Urine Neg (Negative); Specific Gravity, Urine 1.005 (1.005-1.030); Urine Appearance Clear (CLEAR); Urine Color Yellow (Yellow); Urobilinogen Urine Neg (Negative); pH Urine 6 (5-7)
[2023-01-17] MEDS: OXcarbazepine 300 mg Tablet PO (21:07)
[2023-01-17] MEDS: lactobacillus 1 Tablet 4 TAB PO (21:10)
[2023-01-17] MEDS: apixaban 5 mg Tablet PO (21:10)
[2023-01-17] MEDS: ceFAZolin 1,000 MG in sodium chloride 0.9% (plus) 50 ML 100 MG IV (21:12)
[2023-01-17] MEDS: clotrimazole-betamethasone cream 15gm 1 APPLIC TOPICAL (21:12)
[2023-01-18] VITALS (10 sets, daily range): BP systolic 112–162; BP diastolic 71–84; PULSE 84–94; RESP 16–22; TEMP 36.4–37.4; O2SAT 88–97
[2023-01-18] MEDS: ceFAZolin 1,000 MG in sodium chloride 0.9% (plus) 50 ML 100 MG IV ×3 (04:52→20:21)
[2023-01-18 05:40] LABS: Basophils # 0.1 10^3/uL (0.0-0.1); Basophils % 0.7 %; Eosinophils # 0.4 10^3/uL (0.0-0.8); Eosinophils % 4.4 %; Hematocrit 46.1 % (36-47); Lymphocytes # 1.5 10^3/uL (0.8-4.8); Lymphocytes % 14.7 %; Mean Corpuscular HGB Conc 27.3 g/dL (30-55); Mean Corpuscular Volume 95.1 fl (85-98); Mean Platelet Volume 11.1 fL (7.4-10.4); Monocytes # 0.7 10^3/uL (0.2-0.9); Neutrophils # 7.11 10^3/uL (1.8-7.7); Neutrophils % 71.9 %; Nucleated Red Blood Cells % 0.4 %; Platelet Count 213 10^3/cmm (157-399); Red Blood Count 4.85 10^6/uL (3.85-5.65); Red Cell Distribution Width 19.8 % (12.1-15.1); White Blood Count 9.89 10^3/uL (3.29-11.43)
--- NOTE | 2023-01-18 05:51 | PC.NURSE ---
2000 med pass, gabapentin and Vistaril held per Dr. Gonzalez due to pt very difficult to awaken.
[2023-01-18 06:02] LABS: Estmated Average Glucose 134; Hemoglobin A1C 6.3 % (4.0-6.0)
[2023-01-18 06:11] LABS: Anion Gap 9.6 (5-19); Blood Urea Nitrogen 12 mg/dL (6-20); Carbon Dioxide 35 mmol/L (22-29); Chloride 101 mmol/L (98-107); Glomerular Filtration Rate 70.5 mL/min (90-130); Glucose 133 mg/dL (65-115); Magnesium 2.3 mg/dL (1.7-2.3); Osmolality Calculated 294 mOsm/kg (285-295); Phosphorus 5.6 mg/dL (2.5-4.5); Potassium 4.6 mmol/L (3.5-5.1); Sodium 141 mmol/L (136-145)
[2023-01-18 06:14] LABS: NT Pro B Type Natriuretic Pept 1040 pg/mL (0-125)
[2023-01-18 06:22] LABS: Calcium 8.7 mg/dL (8.5-10.5)
[2023-01-18] MEDS: apixaban 5 mg Tablet PO ×2 (08:58→20:21)
[2023-01-18] MEDS: buPROPion XL (24 HR) 300 mg Tablet PO (08:59)
[2023-01-18] MEDS: famotidine 20 mg Tablet PO (08:59)
[2023-01-18] MEDS: cetirizine 10 mg Tablet PO (08:59)
[2023-01-18] MEDS: FUROsemide 40 mg Tablet PO (08:59)
[2023-01-18] MEDS: gabapentin 300 mg Capsule 600 MG PO (08:59)
[2023-01-18] MEDS: meloxicam 7.5 mg tablet PO (09:00)
[2023-01-18] MEDS: sertraline 50 mg Tablet 150 MG PO (09:00)
[2023-01-18] MEDS: potassium chloride ER 20 mEq Tablet PO (09:00)
[2023-01-18] MEDS: spironolactone 25 mg Tablet 12.5 MG PO (09:00)
[2023-01-18] MEDS: losartan 50 mg Tablet 25 MG PO (09:00)
[2023-01-18] MEDS: docusate sodium 100 mg Capsule PO ×2 (09:01→18:10)
[2023-01-18] MEDS: lactobacillus 1 Tablet 4 TAB PO ×3 (09:01→20:20)
[2023-01-18] MEDS: ARIPiprazole 10 mg Tablet PO (09:01)
[2023-01-18] MEDS: nystatin powder 15 gm Btl 1 APPLIC TOPICAL ×2 (09:02→18:10)
[2023-01-18] MEDS: clotrimazole-betamethasone cream 15gm 1 APPLIC TOPICAL ×3 (09:02→20:21)
[2023-01-18] MEDS: fluconazole premix 200 MG/100 ML PREMIX 100 MG IV (09:02)
[2023-01-18] MEDS: OXcarbazepine 300 mg Tablet PO ×2 (09:07→20:21)
[2023-01-18] MEDS: levothyroxine 100 mcg Tablet PO (09:08)
--- NOTE | 2023-01-18 09:39 | PC.CHAP ---
Pastoral Care Encounter/Spiritual Assessment Type of Contact [] Declined dish cloth inspector visit [] Patient/Family/Request visit [] Outpatient visit [] Follow-up visit [] Physician referral [] Code/Alert [] Routine visit [] Staff referral [] Actively dying [x] Patient sleeping [] Family support [] [] Out of room [] Palliative care [] [] Receiving care in room [] Pre-surgical visit [] Trauma [] Long length of stay [] ICU visit [] Other: Relational/Emotional Strength [] Patient feels connected with others/family/visitors/staff [] Distress [] Loneliness/isolation [] Abandonment Spirituality of Patient [] Person of Imelda [] Attends Mu-Ism of their Imelda [] Believes in Prayer [] Reads Bible or Roman Catholic materials [] There are Spiritual issues to be addressed [place] Trimming Machine Operator Interventions [] Prayer [] Active listening [] Non-anxious presence [] Spiritual/emotional support [] Crisis/trauma care [] Spiritual counseling [] Bereavement support [] Provided bereavement packet [] Provided Bible/devotional materials [] Provided toy/stuffed animal, coloring book to patient or family member [] Provided Communion [] Anointing/[place] [] Salvation [] Completed spiritual assessment [] Other: Impact on Illness or Injury [] Angry [] Fearful [] Anxious [] Often cries [] Exhaustion [] Unable to work [] Unable to attend restorationist [] Unable to walk/stand [] Unable to read [] Unable to drive [] Unable to eat/drink [] Unable to sleep [] Unable to be with family [] Patient intubated [] Other: Summary Time spent with patient
[2023-01-18] MEDS: morphine 4 mg/mL SDV 1 mL 2 MG IVP (10:01)
[2023-01-18] MEDS: fluticasone nasal spray 16gm Btl 1 SPRAY INTRANASAL (15:11)
--- NOTE | 2023-01-18 16:16 | PM.PN ---
Subjective Subjective: no new complaints today, rash unchanged. It is difficult to awaken her, suspect underlying sleep apnea however when awake she is alert and oriented, able to answer all questions Medications: Reviewed: Yes Vitals/I&O/Wt Last Vital Signs Temp 97.5 F L 01/18/23 12:00 Pulse 93 01/18/23 12:00 Resp 20 H 01/18/23 12:00 BP 137/84 01/18/23 12:00 Pulse Ox 91 01/18/23 12:00 O2 Del Method Nasal Cannula 01/18/23 08:24 O2 Flow Rate 7 01/18/23 08:24 01/18/23 01/18/23 01/18/23 06:59 14:59 22:59 Intake Total 290 / 940 870 / 870 Output Total 1150 / 1150 550 / 550 Balance -860 / -210 320 / 320 Weight last 48 hrs Weight 215.456 kg Physical Exam Narrative: General: No acute distress, AO x3 HEENT: PERRLA, pupils bilaterally equal and reactive, pallors not present Chest: Normal vesicular breath sounds, no added sounds, equal good air entry bilaterally CVS: S1-S2 regular, no murmurs, no tachycardia, no gallops, no rubs Abdomen: Soft, nontender, no organomegaly, bowel sounds present Neuro: No focal deficits, no facial deformity, AO x3, power 5/5 in all limbs Ext: Groin folds with extensive rash Urinary Catheter Management: Browne: Cath Placed During This Visit: yes Reason for Continuing Indwelling Catheter: Assist Healing of Perineal & Sacral Wounds- Incontinent Patients Urinary Catheter Date of Insertion: 01/17/23 Urinary Catheter Time of Insertion: 16:00 Data 01/18/23 04:55 01/18/23 04:55 Micro: Microbiology 01/17/23 12:16 Blood Culture - Preliminary Blood NEGATIVE TO DATE 01/17/23 12:12 Blood Culture - Preliminary Blood NEGATIVE TO DATE A&P Assessment and plan (1) Candidiasis, intertriginous: with likely secondary infection, progressively worsening, not able to achieve dryness, has some enuresis and daytime incontince at times, not known to be diabetic, present on admission and to a degree since July of this year, actually several months prior to that. This is second admission in about a month for same condition. Currently on treatment with IV cefazolin and IV fluconazole. IV vancomycin for MRSA coverage. No significant improvement noted in her rash. Continue Interdry and local application of clotrimazole betamethasone. (2) Panniculitis: lower pannus, extension from above, present on admission And vancomycin as above (3) Lower extremity cellulitis: bilateral upper legs, extension from groin/above, present on admission (4) Body mass index (BMI) greater than 70 in adult: Current BMI 81. Has been evaluated for Pradar Willi in the past and while has some features (eating disorder, samll hands and feet, facial features) does not have a formal diagnosis after evaluation in [facility]. BMI is definitely impacting skin findings and ability to heal. (5) Chronic hypoxic respiratory failure: From obesity hypoventilation and untreated sleep apnea. Uses nocturnal oxygen only at home, but noted to have desaturations while in ER. Sleep study from 07/2021 showed severe apnea and sleep titration study recommended as was non-invasive home ventilator. Titiration study has not yet been done. Increased somnolence today. Check ABG to evaluate for hypercapnia high risk given morbid obesity. CPAP at nighttime, generic settings at pressure of 14 for now for now as titration study has been unable to be completed in the past. Hold gabapentin, Abilify and hydroxyzine for now. (6) Chronic anticoagulation: On chronic eliquis for presumptive diagnosis of PE last year. (7) Congestive heart failure: Chronic with preserved ejection fraction, on chronic duiretics and losartan (8) Benign essential HTN: Managed with diretics and arb (9) Hypothyroidism: Acquired, on chronic levothyroxine (10) Psychiatric disorder: On chronic abilify (newest medication), sertraline, welbutrin, oxcarbazepine, hydroxyzine (11) Patient has guardian: Plan VTE prophylaxis: eliquis GI Prophylaxis: on home H2B Browne: ordered to help with wound/skin healing Line(s): peripheral IVs Disposition plan: Likely will return to skilled nursing based on current discussions but exploring options for longer term care of skin wounds in particular as these have been present since July 2022 or longer to differing degrees, now with 2nd admission in just over a month for same skin findings, which are actually worsening despite attempts at outpatient management. She has been seen by dermatology several times as well. Code Status: Full Code Attestations Medical Necessity Statement*: continued admission for IV antibiotics for cellulitis and panniculitis, adjusting medications dependent on mental status. Coding Level of Care Code Acute Code for g Fwd Diagnoses Candidiasis, intertriginous B37.2 Panniculitis M79.3 Lower extremity cellulitis L03.119 Body mass index (BMI) greater than 70 in adult Z68.45 Chronic hypoxic respiratory failure J96.11 Chronic anticoagulation Z79.01 Congestive heart failure I50.9 Benign essential HTN I10 Hypothyroidism E03.9 Psychiatric disorder F99 Patient has guardian
[2023-01-18] MEDS: vancomycin 2,000 MG/400 ML PIGGYBACK 200 MG IV (18:11)
[2023-01-19] VITALS (10 sets, daily range): BP systolic 109–142; BP diastolic 63–85; PULSE 80–92; RESP 16–20; TEMP 36.6–37; O2SAT 89–92
[2023-01-19] MEDS: vancomycin 2,000 MG/400 ML PIGGYBACK 200 MG IV ×2 (00:23→08:53)
[2023-01-19] MEDS: ceFAZolin 1,000 MG in sodium chloride 0.9% (plus) 50 ML 100 MG IV ×3 (03:30→20:47)
[2023-01-19 05:59] LABS: Basophils % 0.4 %; Eosinophils # 0.4 10^3/uL (0.0-0.8); Eosinophils % 3.4 %; Hematocrit 46.2 % (36-47); Lymphocytes # 1.8 10^3/uL (0.8-4.8); Lymphocytes % 16.7 %; Mean Corpuscular HGB Conc 27.1 g/dL (30-55); Mean Corpuscular Volume 96.3 fl (85-98); Mean Platelet Volume 11.1 fL (7.4-10.4); Monocytes # 0.8 10^3/uL (0.2-0.9); Monocytes % 7.1 %; Neutrophils % 71.7 %; Nucleated Red Blood Cells % 0.4 %; Platelet Count 218 10^3/cmm (157-399); Red Cell Distribution Width 19.7 % (12.1-15.1); White Blood Count 10.87 10^3/uL (3.29-11.43)
[2023-01-19 06:27] LABS: Alanine Aminotransferase 9 U/L (0-33); Albumin Level 3.2 g/dL (3.5-5.2); Alkaline Phosphatase 217 U/L (35-105); Anion Gap 10.5 (5-19); Blood Urea Nitrogen 10 mg/dL (6-20); Calcium 8.3 mg/dL (8.5-10.5); Carbon Dioxide 35 mmol/L (22-29); Chloride 100 mmol/L (98-107); Globulin 3.7 g/dL (1.3-4.6); Glomerular Filtration Rate 70.5 mL/min (90-130); Glucose 105 mg/dL (65-115); Osmolality Calculated 291 mOsm/kg (285-295); Potassium 4.5 mmol/L (3.5-5.1); Sodium 141 mmol/L (136-145); Total Bilirubin 0.3 mg/dL (0.15-1.2); Total Protein 6.9 g/dL (6.6-8.7)
[2023-01-19 06:35] LABS: Aspartate Amino Transferase 5 U/L (0-32)
[2023-01-19] MEDS: docusate sodium 100 mg Capsule PO ×2 (08:48→18:13)
[2023-01-19] MEDS: lactobacillus 1 Tablet 4 TAB PO ×3 (08:48→20:46)
[2023-01-19] MEDS: levothyroxine 100 mcg Tablet PO (08:48)
[2023-01-19] MEDS: meloxicam 7.5 mg tablet PO (08:48)
[2023-01-19] MEDS: cetirizine 10 mg Tablet PO (08:48)
[2023-01-19] MEDS: buPROPion XL (24 HR) 300 mg Tablet PO (08:49)
[2023-01-19] MEDS: sertraline 50 mg Tablet 150 MG PO (08:49)
[2023-01-19] MEDS: FUROsemide 40 mg Tablet PO (08:49)
[2023-01-19] MEDS: potassium chloride ER 20 mEq Tablet PO (08:49)
[2023-01-19] MEDS: fluconazole 100 mg Tablet 200 MG PO (08:49)
[2023-01-19] MEDS: famotidine 20 mg Tablet PO (08:50)
[2023-01-19] MEDS: losartan 50 mg Tablet 25 MG PO (08:50)
[2023-01-19] MEDS: spironolactone 25 mg Tablet 12.5 MG PO (08:51)
[2023-01-19] MEDS: apixaban 5 mg Tablet PO ×2 (10:19→20:46)
[2023-01-19] MEDS: OXcarbazepine 300 mg Tablet PO ×2 (10:19→20:46)
[2023-01-19] MEDS: clotrimazole-betamethasone cream 15gm 1 APPLIC TOPICAL ×3 (10:21→20:55)
[2023-01-19] MEDS: nystatin powder 15 gm Btl 1 APPLIC TOPICAL ×2 (10:21→18:14)
[2023-01-19 16:46] LABS: Vancomycin Trough 30.2 ug/mL (10-15)
--- NOTE | 2023-01-19 17:22 | P.PN_ITS ---
Subjective Subjective: Patient much more awake and alert today after having used CPAP last evening and overnight. No new complaints today. Cellulitis improving but still persistent. Medications: Reviewed: Yes Vitals/I&O/Wt Last Vital Signs Temp 98 F 01/19/23 16:00 Pulse 84 01/19/23 16:00 Resp 20 H 01/19/23 16:00 BP 109/63 01/19/23 16:00 Pulse Ox 90 01/19/23 16:00 O2 Del Method Nasal Cannula 01/19/23 11:45 O2 Flow Rate 5 01/19/23 11:45 01/19/23 01/19/23 01/19/23 06:59 14:59 22:59 Intake Total 450 / 2010 690 / 690 Output Total 400 / 1475 Balance 50 / 535 690 / 690 Physical Exam Narrative: General: No acute distress, AO x3 HEENT: PERRLA, pupils bilaterally equal and reactive, pallors not present Chest: Normal vesicular breath sounds, no added sounds, equal good air entry bilaterally CVS: S1-S2 regular, no murmurs, no tachycardia, no gallops, no rubs Abdomen: Soft, nontender, no organomegaly, bowel sounds present Neuro: No focal deficits, no facial deformity, AO x3, power 5/5 in all limbs Ext: Groin folds with extensive rash Urinary Catheter Management: Browne: Cath Placed During This Visit: yes Reason for Continuing Indwelling Catheter: Assist Healing of Perineal & Sacral Wounds- Incontinent Patients Urinary Catheter Date of Insertion: 01/17/23 Urinary Catheter Time of Insertion: 16:00 Data 01/19/23 05:46 01/19/23 05:46 A&P Assessment and plan (1) Candidiasis, intertriginous: with likely secondary infection, progressively worsening, not able to achieve dryness, has some enuresis and daytime incontince at times, not known to be diabetic, present on admission and to a degree since July of this year, actually several months prior to that. This is second admission in about a month for same condition. Currently on treatment with IV cefazolin (2) Panniculitis: lower pannus, extension from above, present on admission Continue clotrimazole and betamethasone local ointment. (3) Lower extremity cellulitis: bilateral upper legs, extension from groin/above, present on admission (4) Body mass index (BMI) greater than 70 in adult: Current BMI 81. Has been evaluated for Pradar Willi in the past and while has some features (eating disorder, samll hands and feet, facial features) does not have a formal diagnosis after evaluation in [facility]. BMI is definitely impacting skin findings and ability to heal. (5) Chronic hypoxic respiratory failure: From obesity hypoventilation and untreated sleep apnea. Uses nocturnal oxygen only at home, but noted to have desaturations while in ER. Sleep study from 07/2021 showed severe apnea and sleep titration study recommended as was non-i nvasive home ventilator. Titiration study has not yet been done. Increased somnolence today. Check ABG to evaluate for hypercapnia high risk given morbid obesity. CPAP at nighttime, generic settings at pressure of 14 for now for now as titration study has been unable to be completed in the past. Hold gabapentin, Abilify and hydroxyzine for now. (6) Chronic anticoagulation: On chronic eliquis for presumptive diagnosis of PE last year. (7) Congestive heart failure: Chronic with preserved ejection fraction, on chronic duiretics and losartan (8) Benign essential HTN: Managed with diretics and arb (9) Hypothyroidism: Acquired, on chronic levothyroxine (10) Psychiatric disorder: On chronic abilify (newest medication), sertraline, welbutrin, oxcarbazepine, hy droxyzine (11) Patient has guardian: Plan VTE prophylaxis: eliquis GI Prophylaxis: on home H2B Browne: ordered to help with wound/skin healing Line(s): peripheral IVs Disposition plan: Likely will return to senior living based on current discussions but exploring options for longer term care of skin wounds in particular as these have been present since July 2022 or longer to differing degrees, now with 2nd admission in just over a month for same skin findings, which are actually worsening despite attempts at outpatient management. She has been seen by dermatology several times as well. Code Status: Full Code Attestations Medical Necessity Statement*: improving cellulitis, continue iv abx , planned transition to po abx over the next 48 hrs if continues to improve Coding Level of Care Code Acute Code for Chg Fwd Diagnoses Candidiasis, intertriginous B37.2 Panniculitis M79.3 Lower extremity cellulitis L03.119 Body mass index (BMI) greater than 70 in adult Z68.45 Chronic hypoxic respiratory failure J96.11 Chronic anticoagulation Z79.01 Congestive heart failure I50.9 Benign essential HTN I10 Hypothyroidism E03.9 Psychiatric disorder F99 Patient has guardian
[2023-01-19] MEDS: morphine 4 mg/mL SDV 1 mL 2 MG IVP (20:48)
[2023-01-20] VITALS (8 sets, daily range): BP systolic 117–147; BP diastolic 70–79; PULSE 75–80; RESP 14–22; TEMP 36.4–36.7; O2SAT 90–93
[2023-01-20] MEDS: ceFAZolin 1,000 MG in sodium chloride 0.9% (plus) 50 ML 100 MG IV (04:58)
[2023-01-20] MEDS: lactobacillus 1 Tablet 4 TAB PO ×3 (09:13→20:12)
[2023-01-20] MEDS: OXcarbazepine 300 mg Tablet PO ×2 (09:14→20:11)
[2023-01-20] MEDS: fluconazole 100 mg Tablet 200 MG PO (09:15)
[2023-01-20] MEDS: sertraline 50 mg Tablet 150 MG PO (09:15)
[2023-01-20] MEDS: buPROPion XL (24 HR) 300 mg Tablet PO (09:15)
[2023-01-20] MEDS: FUROsemide 40 mg Tablet PO (09:16)
[2023-01-20] MEDS: cetirizine 10 mg Tablet PO (09:17)
[2023-01-20] MEDS: levothyroxine 100 mcg Tablet PO (09:18)
[2023-01-20] MEDS: spironolactone 25 mg Tablet 12.5 MG PO (09:18)
[2023-01-20] MEDS: meloxicam 7.5 mg tablet PO (09:19)
[2023-01-20] MEDS: apixaban 5 mg Tablet PO ×2 (09:19→20:11)
[2023-01-20] MEDS: famotidine 20 mg Tablet PO (09:20)
[2023-01-20] MEDS: losartan 50 mg Tablet 25 MG PO (09:20)
[2023-01-20] MEDS: docusate sodium 100 mg Capsule PO ×2 (09:20→18:15)
[2023-01-20] MEDS: potassium chloride ER 20 mEq Tablet PO (09:21)
[2023-01-20] MEDS: clotrimazole-betamethasone cream 15gm 1 APPLIC TOPICAL ×3 (09:22→20:12)
[2023-01-20 10:54] LABS: Vancomycin Trough 13.5 ug/mL (10-15)
[2023-01-20] MEDS: nystatin powder 15 gm Btl 1 APPLIC TOPICAL (13:41)
[2023-01-20] MEDS: fluticasone nasal spray 16gm Btl 1 SPRAY INTRANASAL (14:48)
[2023-01-20] MEDS: amoxicillin-clav 875-125 mg Tablet 1 TAB PO (18:15)
[2023-01-20] MEDS: sulfamethoxazole-trimeth DS 160-800 mg Tablet 1 TAB PO (18:15)
--- NOTE | 2023-01-20 18:37 | PM.PN ---
Subjective Subjective: Cellulitis continues to improve today. Feels well overall. Once more alert and awake than previous exams. Medications: Reviewed: Yes Vitals/I&O/Wt Last Vital Signs Temp 97.9 F 01/20/23 11:57 Pulse 76 01/20/23 11:57 Resp 18 01/20/23 11:57 BP 117/70 01/20/23 11:57 Pulse Ox 90 01/20/23 11:57 O2 Del Method Nasal Cannula 01/20/23 11:57 O2 Flow Rate 5 01/20/23 11:57 01/20/23 01/20/23 01/20/23 06:59 14:59 22:59 Intake Total 50 / 1270 1130 / 1130 480 / 1610 Output Total 250 / 525 1999 Balance -200 / 745 1130 / 1130 -1520 / -390 Physical Exam Narrative: General: No acute distress, AO x3 HEENT: PERRLA, pupils bilaterally equal and reactive, pallors not present Chest: Normal vesicular breath sounds, no added sounds, equal good air entry bilaterally CVS: S1-S2 regular, no murmurs, no tachycardia, no gallops, no rubs Abdomen: Soft, nontender, no organomegaly, bowel sounds present Neuro: No focal deficits, no facial deformity, AO x3, power 5/5 in all limbs Ext: Groin folds with extensive rash Urinary Catheter Management: Browne: Cath Placed During This Visit: yes Reason for Continuing Indwelling Catheter: Accurate Measurement of Urinary Output in Critically Ill Patients Urinary Catheter Date of Insertion: 01/17/23 Urinary Catheter Time of Insertion: 16:00 Data 01/19/23 05:46 01/19/23 05:46 A&P Assessment and plan (1) Candidiasis, intertriginous: with likely secondary infection, progressively worsening, not able to achieve dryness, has some enuresis and daytime incontince at times, not known to be diabetic, present on admission and to a degree since July of this year, actually several months prior to that. This is second admission in about a month for same condition. Currently on treatment with IV cefazolin (2) Panniculitis: lower pannus, extension from above, present on admission Continue clotrimazole and betamethasone local ointment. (3) Lower extremity cellulitis: bilateral upper legs, extension from groin/above, present on admission (4) Body mass index (BMI) greater than 70 in adult: Current BMI 81. Has been evaluated for Pradar Willi in the past and while has some features (eating disorder, samll hands and feet, facial features) does not have a formal diagnosis after evaluation in [facility]. BMI is definitely impacting skin findings and ability to heal. (5) Chronic hypoxic respiratory failure: From obesity hypoventilation and untreated sleep apnea. Uses nocturnal oxygen only at home, but noted to have desaturations while in ER. Sleep study from 07/2021 showed severe apnea and sleep titration study recommended as was non-invasive home ventilator. Titiration study has not yet been done. Increased somnolence today. Check ABG to evaluate for hypercapnia high risk given morbid obesity. CPAP at nighttime, generic settings at pressure of 14 for now for now as titration study has been unable to be completed in the past. Hold gabapentin, Abilify and hydroxyzine for now. (6) Chronic anticoagulation: On chronic eliquis for presumptive diagnosis of PE last year. (7) Congestive heart failure: Chronic with preserved ejection fraction, on chronic duiretics and losartan (8) Benign essential HTN: Managed with diretics and arb (9) Hypothyroidism: Acquired, on chronic levothyroxine (10) Psychiatric disorder: On chronic abilify (newest medication), sertraline, welbutrin, oxcarbazepine, hydroxyzine (11) Patient has guardian: Plan Plan for today: Improving lower extremity cellulitis. Transition IV to oral antibiotics, if tolerates over the next 24 hours antibiotic anticipate discharge to home. VTE prophylaxis: eliquis GI Prophylaxis: on home H2B Browne: ordered to help with wound/skin healing Line(s): peripheral IVs Disposition plan: Likely will return to long term based on current discussions but exploring options for longer term care of skin wounds in particular as these have been present since July 2022 or longer to differing degrees, now with 2nd admission in just over a month for same skin findings, which are actually worsening despite attempts at outpatient management. She has been seen by dermatology several times as well. Code Status: Full Code Attestations Medical Necessity Statement*: Transition IV to oral antibiotics today, if tolerates anticipate discharge home in the next 24 hours Coding Level of Care Code Acute Code for Chg Fwd Straight Forward/Low MDM includes number and complexity of problems actively addressed during encounter, amount and/or complexity of data reviewed/ordered and described risk of complication, morbidity or mortality of management as documented and Moderate MDM includes number and complexity of problems actively addressed during encounter, amount and/or complexity of data reviewed/ordered and described risk of complication, morbidity or mortality of management as documented Diagnoses Candidiasis, intertriginous B37.2 Panniculitis M79.3 Lower extremity cellulitis L03.119 Body mass index (BMI) greater than 70 in adult Z68.45 Chronic hypoxic respiratory failure J96.11 Chronic anticoagulation Z79.01 Congestive heart failure I50.9 Benign essential HTN I10 Hypothyroidism E03.9 Psychiatric disorder F99 Patient has guardian
[2023-01-20] MEDS: morphine 4 mg/mL SDV 1 mL 2 MG IVP (20:12)
[2023-01-21 04:00] VITALS: BP 151/77; PULSE 89; RESP 22; TEMP 36.3; O2SAT 92
[2023-01-21 08:00] VITALS: BP 137/79; PULSE 80; RESP 18; TEMP 36.9; O2SAT 90
[2023-01-21] MEDS: buPROPion XL (24 HR) 300 mg Tablet PO (08:46)
[2023-01-21] MEDS: meloxicam 7.5 mg tablet PO (08:46)
[2023-01-21] MEDS: sulfamethoxazole-trimeth DS 160-800 mg Tablet 1 TAB PO (08:47)
[2023-01-21] MEDS: losartan 50 mg Tablet 25 MG PO (08:47)
[2023-01-21] MEDS: sertraline 50 mg Tablet 150 MG PO (08:47)
[2023-01-21] MEDS: levothyroxine 100 mcg Tablet PO (08:47)
[2023-01-21] MEDS: spironolactone 25 mg Tablet 12.5 MG PO (08:47)
[2023-01-21] MEDS: amoxicillin-clav 875-125 mg Tablet 1 TAB PO (08:47)
[2023-01-21] MEDS: lactobacillus 1 Tablet 4 TAB PO (08:47)
[2023-01-21] MEDS: famotidine 20 mg Tablet PO (08:48)
[2023-01-21] MEDS: OXcarbazepine 300 mg Tablet PO (08:48)
[2023-01-21] MEDS: cetirizine 10 mg Tablet PO (08:48)
[2023-01-21] MEDS: FUROsemide 40 mg Tablet PO (08:48)
[2023-01-21] MEDS: potassium chloride ER 20 mEq Tablet PO (08:48)
[2023-01-21] MEDS: apixaban 5 mg Tablet PO (08:48)
[2023-01-21] MEDS: docusate sodium 100 mg Capsule PO (08:48)
[2023-01-21] MEDS: fluconazole 100 mg Tablet 200 MG PO (08:48)
[2023-01-21 09:37] VITALS: PULSE 80; RESP 18; O2SAT 95
--- NOTE | 2023-01-21 09:46 | P.DS_ITS ---
Discharge Providers Date of Admission: 01/17/23 12:51 Date of Discharge: January 21, 2023 Attending Provider at Admission: Marilee Gomes MD Attending Provider at Discharge: Geovanna Henning MD Primary Care Provider: RANDY Stevens Diagnoses at Discharge Discharge Diagnosis (1) Candidiasis, intertriginous: Status: Acute (2) Panniculitis: Status: Acute (3) Lower extremity cellulitis: Status: Acute (4) Body mass index (BMI) greater than 70 in adult: Status: Chronic (5) Chronic hypoxic respiratory failure: Status: Chronic (6) Chronic anticoagulation: Status: Chronic (7) Congestive heart failure: Status: Chronic Permanent problem details: Echo 06/2021: LV systolic function normal with EF of 55 to 60%, mild pulmonary hypertension with RVSP 35-40mmHg (8) Benign essential HTN: Status: Chronic (9) Hypothyroidism: Status: Acute Permanent problem details: [facility] endocrinology--Dr Haider (10) Psychiatric disorder: Status: Chronic (11) Patient has guardian: Status: Chronic Reason for Visit Reason for Visit: rash under [facility] Course Hospital Course Deann Vega is a 37 year old female who presented to the emergency room with chief complaint of worsening rash.? She has had issues with various skin rashes for quite some time.?She has previosuly been diagnosed with contact dermatitis, intertrigo, stasis dermatitis and erosion as findings from dermatology. For the past month she has had increased erythema and crusting of the abdominal pannus?and groin. She was diagnosed with severe intertriginous candidiasis and panniculitis. Difficult with healing of these lesions likely related to body habitus, inability to lie flat or get significant aeration to the area. She was treated with iv cefazolin and iv vancomycin , po fluconazole in the hospital and then transitioned to po Augmentin and Bactrim at discharge which she is tolerating well currently. At discharge recommended to continue Augmentin and Bactrim for the next week, fluconazole until candidiasis is improved. She did well with trial of auto CPAP in the hospital, recommended to complete outpatient sleep study with titration. Physical Exam Narrative: General: No acute distress, AO x3 HEENT: PERRLA, pupils bilaterally equal and reactive, pallors not present Chest: Normal vesicular breath sounds, no added sounds, equal good air entry bilaterally CVS: S1-S2 regular, no murmurs, no tachycardia, no gallops, no rubs Abdomen: Soft, nontender, no organomegaly, bowel sounds present Neuro: No focal deficits, no facial deformity, AO x3, power 5/5 in all limbs Urinary Catheter Management: Browne: Cath Placed During This Visit: yes Reason for Continuing Indwelling Catheter: Assist Healing of Perineal & Sacral Wounds- Incontinent Patients Urinary Catheter Date of Insertion: 01/17/23 Urinary Catheter Time of Insertion: 16:00 Discharge Data Studies Completed and Pending Pending at discharge Category Date Time Status Blood Culture Stat Lab 01/17/23 12:16 Results Laboratory Results WBC 10.87 10^3/uL (3.29-11.43) 01/19/23 05:46 RBC 4.80 10^6/uL (3.85-5.65) 01/19/23 05:46 Hgb 12.50 g/dL (11.27-16.99) 01/19/23 05:46 Hct 46.2 % (36-47) 01/19/23 05:46 MCV 96.3 fl (85-98) 01/19/23 05:46 MCH 26.0 pg (27-33) L 01/19/23 05:46 MCHC 27.1 g/dL (30-55) L 01/19/23 05:46 RDW 19.7 % (12.1-15.1) H 01/19/23 05:46 Plt Count 218 10^3/cmm (157-399) 01/19/23 05:46 MPV 11.1 fL (7.4-10.4) H 01/19/23 05:46 Neut % (Auto) 71.7 % 01/19/23 05:46 Lymph % (Auto) 16.7 % 01/19/23 05:46 Hickman % (Auto) 7.1 % 01/19/23 05:46 Eos % (Auto) 3.4 % 01/19/23 05:46 Baso % (Auto) 0.4 % 01/19/23 05:46 Neut # (Auto) 7.80 10^3/uL (1.8-7.7) H 01/19/23 05:46 Lymph # (Auto) 1.8 10^3/uL (0.8-4.8) 01/19/23 05:46 Hickman # (Auto) 0.8 10^3/uL (0.2-0.9) 01/19/23 05:46 Eos # (Auto) 0.4 10^3/uL (0.0-0.8) 01/19/23 05:46 Baso # (Auto) 0.0 10^3/uL (0.0-0.1) 01/19/23 05:46 Nucleated RBC % (auto) 0.4 % 01/19/23 05:46 Nucleated RBCs # 0.0 /100WBC 01/19/23 05:46 Sodium 141 mmol/L (136-145) 01/19/23 05:46 Potassium 4.5 mmol/L (3.5-5.1) 01/19/23 05:46 Chloride 100 mmol/L (98-107) 01/19/23 05:46 Carbon Dioxide 35 mmol/L (22-29) H 01/19/23 05:46 Anion Gap 10.5 (5-19) 01/19/23 05:46 BUN 10 mg/dL (6-20) 01/19/23 05:46 Creatinine 0.9 mg/dL (0.5-0.9) 01/19/23 05:46 GFR Calculation 70.5 mL/min (90-130) L 01/19/23 05:46 Glucose 105 mg/dL (65-115) 01/19/23 05:46 Estimat Average Glucose 134 01/18/23 04:55 Hemoglobin A1c 6.3 % (4.0-6.0) H 01/18/23 04:55 Calculated Osmolality 291 mOsm/kg (285-295) 01/19/23 05:46 Calcium 8.3 mg/dL (8.5-10.5) L 01/19/23 05:46 Phosphorus 5.6 mg/dL (2.5-4.5) H 01/18/23 04:55 Magnesium 2.3 mg/dL (1.7-2.3) 01/18/23 04:55 Total Bilirubin 0.3 mg/dL (0.15-1.2) 01/19/23 05:46 AST 5 U/L (0-32) 01/19/23 05:46 ALT 9 U/L (0-33) 01/19/23 05:46 Alkaline Phosphatase 217 U/L (35-105) H 01/19/23 05:46 NT-Pro-B Natriuret Pep 1040 pg/mL (0-125) H 01/18/23 04:55 Total Protein 6.9 g/dL (6.6-8.7) 01/19/23 05:46 Albumin 3.2 g/dL (3.5-5.2) L 01/19/23 05:46 Globulin 3.7 g/dL (1.3-4.6) 01/19/23 05:46 Urine Color Yellow (Yellow) 01/17/23 19:00 Urine Appearance Clear (CLEAR) 01/17/23 19:00 Urine pH 6 (5-7) 01/17/23 19:00 Ur Specific [place] 1.005 (1.005-1.030) 01/17/23 19:00 Urine Protein Neg (Negative) 01/17/23 19:00 Urine Glucose (UA) Norm (Normal) 01/17/23 19:00 Urine Ketones Negative (Negative) 01/17/23 19:00 Urine Blood Neg (Negative) 01/17/23 19:00 Urine Nitrate Negative (Negative) 01/17/23 19:00 Urine Bilirubin Neg (Negative) 01/17/23 19:00 Urine Urobilinogen Neg mg/dL (Negative) 01/17/23 19:00 Ur Leukocyte Esterase Negative (Negative) 01/17/23 19:00 Vancomycin Trough 13.5 ug/mL (10-15) 01/20/23 09:56 Vitals Last Vital Signs Temp 98.5 F 01/21/23 08:00 Pulse 80 01/21/23 09:37 Resp 18 01/21/23 09:37 BP 137/79 01/21/23 08:00 Pulse Ox 95 01/21/23 09:37 O2 Del Method Nasal Cannula 01/21/23 09:37 O2 Flow Rate 5 01/21/23 09:37 Discharge Plan Discharge Patient Disposition: Home Condition: Stable Prescriptions: New fluconazole 100 mg Tablet 200 mg PO DAILY 30 Days Qty: 30 0RF amoxicillin-pot clavulanate 875-125 mg Tablet 1 tab PO BID 7 Days Qty: 14 0RF sulfamethoxazole-trimethoprim 800-160 mg Tablet 1 tab PO BID 7 Days Qty: 14 0RF Continued Eucerin Cream 1 applic topical BID PRN (Reason: unknown) lidocaine [Salonpas (lidocaine)] 4 % adhesive patch,medicated 1 patch topical DAILY PRN (Reason: Pain) spironolactone 25 mg tablet 12.5 mg PO DAILY (DME) Blood Pressure Cuff Misc See Rx Instructions .Route Qty: 1 0RF Rx Instructions: As directed diphenhydramine HCl [Banophen] 25 mg Capsule 25 mg PO Q6H PRN (Reason: Allergy Symptoms) loperamide 2 mg Capsule 2 mg PO Q8H PRN (Reason: Diarrhea) oxcarbazepine 300 mg Tablet 300 mg PO BID@08,20 dicyclomine 10 mg Capsule 10 mg PO TID PRN (Reason: Abdominal Discomfort) cetirizine 10 mg Tablet 10 mg PO DAILY@08 levothyroxine 100 mcg Tablet 100 mcg PO DAILY@08 famotidine 20 mg Tablet 20 mg PO DAILY@08 hydroxyzine HCl 25 mg Tablet 25 mg PO BEDTIME@20 PRN (Reason: Sleep) fluticasone propionate 50 mcg/actuation [place],Suspension 1 spray INTRANASAL DAILY@14 sertraline 50 mg Tablet 150 mg PO DAILY@08 bupropion HCl 300 mg Tablet Extended Release 24 Hr 300 mg PO DAILY@08 potassium chloride 20 mEq Tablet Extended Release 20 meq PO DAILY@08 gabapentin 600 mg Tablet 600 mg PO TID@08,14,20 ergocalciferol (vitamin D2) [Vitamin D2] 1,250 mcg (50,000 unit) capsule 50,000 unit PO Q7D Rx Instructions: on TUESDAY Eliquis 5 mg tablet 5 mg PO BID@08,20 furosemide 40 mg tablet 40 mg PO DAILY@08 Neosporin ([id number]-vwp-emgtw) 3.5mg-400 unit- 5,000 unit/gram Ointment 1 applic TOPICAL BID PRN (Reason: unknown) epinephrine [EpiPen 2-Norm] 0.3 mg/0.3 mL Auto-Injector 0.3 mg IM Q4H PRN (Reason: Allergic Reaction) meloxicam 7.5 mg Tablet 7.5 mg PO DAILY lidocaine 5 % Adhesive Patch,Medicated 1 patch TOPICAL DAILY Rx Instructions: leave on most painful area for up to 12 hrs menthol Gel 1 applic TOPICAL TID PRN (Reason: unknown) calcium carbonate-vitamin D3 [Calcium 600 + D(3)] 600 mg-10 mcg (400 unit) Tablet 1 tab PO DAILY olopatadine 0.2 % drops 1 drp ophthalmic (eye) DAILY PRN (Reason: Dry Eye(S)) Probiotic 3 billion cell Capsule 3,000 mmu cells PO DAILY Rx Instructions: administer with a meal Cough Drops 5.4 mg Lozenge 5.4 mg MUCOUS MEMBRANE Q4H PRN (Reason: Cough) albuterol sulfate 90 mcg/actuation HFA aerosol inhaler 2 inh inhalation Q4H PRN (Reason: shortness of breath or wheezing) Qty: 6.7 1RF nystatin [Nystop] 100,000 unit/gram Powder 1 applic topical BID 30 Days Qty: 60 0RF furosemide 20 mg tablet See Rx Instructions .ROUTE .COMPLEX Rx Instructions: 20 mg orally at noon Elidel 1 % cream 1 applic TOPICAL BID Rx Instructions: APPLY IN ABDOMINAL FOLDS TWICE DAILY FOR TWO MONTHS diclofenac sodium 1 % gel 4.5 inch TOPICAL QID PRN (Reason: Pain) losartan 25 mg tablet 25 mg PO DAILY norethindrone (contraceptive) 0.35 mg tablet 0.35 mg PO DAILY ciclopirox 0.77 % cream 1 applic topical BID PRN (Reason: Rash) Rx Instructions: Apply to red areas twice a day, as needed. aripiprazole 10 mg tablet 10 mg PO DAILY Discharge Orders: Discharge Order (Routine); Ordered 01/21/23 Ordered By: Geovanna Henning Other Ambulatory Orders: Sleep Study/Titration (Routine) Timeframe: 1 Month Facility: [facility] - Location: [facility] Ordered By: Marilee Gomes Referrals: Fern Aguilar FNP [Primary Care Provider] - 4-7 days [facility]ARE [facility], [Staff Physician] - Discharge Diet: Usual diet Discharge Activity: Resume usual activity Patient Instructions: Opioid Safety Discharge Attestations Time Spent in Discharge Care*: greater than 30 min Status at Discharge: Cognitive status at discharge: cognitively intact , Behavioral status at discharge: cooperative , Quality Metrics Clinical Quality Measures [ No reported AMI, CVA or VTE this stay] Coding Level of Care Code Acute Code for Chg Fwd Diagnoses Candidiasis, intertriginous B37.2 Panniculitis M79.3 Lower extremity cellulitis L03.119 Body mass index (BMI) greater than 70 in adult Z68.45 Chronic hypoxic respiratory failure J96.11 Chronic anticoagulation Z79.01 Congestive heart failure I50.9 Benign essential HTN I10 Hypothyroidism E03.9 Psychiatric disorder F99 Patient has guardian
[2023-01-21 09:54] VITALS: O2SAT 86; O2SAT 93
[2023-01-21 13:46] VITALS: PULSE 80; RESP 18; O2SAT 95
== END 2023-01-21 13:47 | disposition home or self-care (01) | DRG 607 ==
LOC: ER 12:38 → MEDSURG 15:21
PROVIDERS: Admitting Provider Hospitalist; Emergency Provider Family Medicine; PCP Nurse Practitioner Family; Visit Provider Student in an Organized Health Care Education/Training Program
DX: M79.3 Panniculitis, unspecified (principal); L03.116 Cellulitis of left lower limb; L03.115 Cellulitis of right lower limb; I50.32 Chronic diastolic (congestive) heart failure; E66.2 Morbid (severe) obesity with alveolar hypoventilation; Z68.45 Body mass index [BMI] 70 or greater, adult; J96.11 Chronic respiratory failure with hypoxia; L30.4 Erythema intertrigo; Z79.01 Long term (current) use of anticoagulants; I11.0 Hypertensive heart disease with heart failure; F31.9 Bipolar disorder, unspecified; I27.20 Pulmonary hypertension, unspecified; M79.7 Fibromyalgia; E03.9 Hypothyroidism, unspecified; F17.200 Nicotine dependence, unspecified, uncomplicated
CPT/HCPCS: 36415; 51702; 80048; 80053; 80202; 81003; 83036; 83735; 83880; 84100; 85025; 87040; 94660; 94760; 94762; 96365; 99285; J0690; J1450; J2270; J3372

== ENCOUNTER → 2023-01-26 08:55 | Outpatient (BNVA) | payer MEDICAID, SELFPAY | PROVIDERS: PCP Nurse Practitioner Family; Visit Provider Nurse Practitioner Family | DX: L53.9 Erythematous condition, unspecified (principal) | CPT/HCPCS: 99213 ==

== ENCOUNTER 2023-02-14 18:41 | Emergency (ER) | payer MEDICAID, SELFPAY ==
[2023-02-14 18:47] VITALS: BP 174/49; PULSE 96; RESP 22; TEMP 36.6; O2SAT 91; BMI 83.7
--- NOTE | 2023-02-14 18:55 | W.ED.SKABFB ---
HPI - Skin/Abscess/Foreign Bdy General: Chief complaint: Skin/Abscess/Foreign Body Stated complaint: rash Time Seen by Provider: 02/14/23 18:51 History of Present Illness: 37-year-old morbidly obese lady comes in today for complaints of persistent erythema and tenderness to the skin folds under her abdomen wall and inguinal areas. Patient has been seen by wound care and by dermatology with recommendations and treatment plans given. Patient lives in an assisted care living facility. Patient is on oxygen routinely most likely due to her morbid obesity and use of cigarettes. Patient states that it is hard for her to stay dry due to incontinence. Patient denies any fever chills or severe pain. Associated symptoms: Deny fever(s), nausea or vomiting Review of Systems General: Reports: 10 or more systems reviewed and unremarkable except in HPI and below Const: Denies: fever(s) Card: Denies: chest pain Resp: Denies: dyspnea GI: Denies: nausea or vomiting : Reports: urinary incontinence; Denies: difficulty voiding Skin/Breast: Reports: erythema PFSH ED PFSH: Medical History Benign essential HTN Bipolar disorder Body mass index (BMI) greater than 70 in adult Chronic hypoxic respiratory failure Congestive heart failure Echo 06/2021: LV systolic function normal with EF of 55 to 60%, mild pulmonary hypertension with RVSP 35-40mmHg Depression Elevated brain natriuretic peptide (BNP) level Fibromyalgia syndrome Hypothyroidism [facility] endocrinology--Dr Haider Morbid obesity BMI 80+; has some features of pradar willi syndrome, but states she was tested at [facility] and does not carry formal diagnosis Nocturnal enuresis Nocturnal hypoxemia Nocturnal polyuria Obesity hypoventilation syndrome Osteoarthritis Psychiatric disorder Sleep apnea Sleep study 07/2021 severe sleep apnea with hypoxemia. Sleep titration recommended. Non-invasive ventilator recommended. As of 01/2023 has not had titration study. Suspected pulmonary embolism diagnosis in early 2021 for which chronic anticoagulation initiated Surgical History H/O laparoscopy (~2010) treatment of ovarian cysts; performed in [place] History of cholecystectomy 2017-lap History of colonoscopy with polypectomy 2017 History of dental surgery History of placement of ear tubes History of tonsillectomy and adenoidectomy Family History Grandmother Breast cancer Maternal--dx age unknown Diabetes Maternal Hypertension Maternal Mother Breast cancer dx age 40's ; unknown if hormone receptive Thyroid disease Grandfather No problems noted. Sister Thyroid disease Denies family history of Colon cancer Ovarian cancer Hypercholesteremia Uterine cancer Stroke Physical Exam Const: COMMON NORMALS: alert HENMT: COMMON NORMALS: normocephalic HEAD & SCALP: normocephalic Neck/C-Spine: COMMON NORMALS: full ROM Resp: COMMON NORMALS: normal respiratory effort and clear to auscultation bilaterally AUSCULTATION: clear to auscultation bilaterally Cardio: COMMON NORMALS: regular rate and regular rhythm RATE: regular rate RHYTHM: regular rhythm GI: INSPECTION: Yes Abdominal panniculus present Extremity: COMMON NORMALS: normal to inspection Neuro: SENSORIUM/ORIENTATION: Yes alert Skin: NARRATIVE SKIN EXAM: Significant erythema under the pannus of the abdomen with some mild induration redness extends down into the inguinal and perineal areas. Back appears well. Redness is in mainly the folds of the skin. Course Vital Signs: Vital signs: Vital Signs Temperature 98 F 02/14/23 18:47 Pulse Rate 96 02/14/23 18:47 Respiratory Rate 22 H 02/14/23 18:47 Blood Pressure 174/49 02/14/23 18:47 Pulse Oximetry 91 02/14/23 18:47 Oxygen Delivery Me thod Nasal Cannula 02/14/23 18:47 Oxygen Flow Rate 4 02/14/23 18:47 MDM - Skin/Abscess/Foreign Bdy Medicial Decision Making Patient comes in today for redness to the abdominal lower skin fold and the inguinal perineal areas. No fever or signs of infection are noted at this time. Patient appears to have dermatitis secondary to moisture. Other differential diagnosis includes cellulitis, panniculitis, contact dermatitis. Recommended skin barrier and drying of the area with pads and diapers. We will cover for secondary infections with Flagyl and doxycycline. Patient will continue with fluconazole as directed. Recommend follow-up with primary care in 1 week. Discussed with with caregiver and acute care certified nursing assistant at facility. No radiology studies performed this visit Discharge Plan Discharge Patient Disposition: Home Clinical Impression: Dermatitis associated with moisture from urinary incontinence, Intertrigo Condition: Stable Prescriptions: New metronidazole 500 mg tablet 500 mg PO Q8H 7 Days Qty: 21 0RF doxycycline hyclate 100 mg capsule 100 mg PO BID 7 Days Qty: 14 0RF zinc oxide 22 % cream 1 applic topical BID Qty: 113 0RF No Action Eucerin Cream 1 applic topical BID PRN (Reason: unknown) lidocaine [Salonpas (lidocaine)] 4 % adhesive patch,medicated 1 patch topical DAILY PRN (Reason: Pain) norethindrone (contraceptive) 0.35 mg tablet 0.35 mg PO DAILY Qty: 84 3RF spironolactone 25 mg tablet 12.5 mg PO DAILY nystatin 100,000 unit/gram powder 1 applic topical BID Qty: 60 6RF diphenhydramine HCl [Banophen] 25 mg Capsule 25 mg PO Q6H PRN (Reason: Allergy Symptoms) loperamide 2 mg Capsule 2 mg PO Q8H PRN (Reason: Diarrhea) oxcarbazepine 300 mg Tablet 300 mg PO BID@08,20 dicyclomine 10 mg Capsule 10 mg PO TID PRN (Reason: Abdominal Discomfort) cetirizine 10 mg Tablet 10 mg PO DAILY@08 levothyroxine 100 mcg Tablet 100 mcg PO DAILY@08 famotidine 20 mg Tablet 20 mg PO DAILY@08 hydroxyzine HCl 25 mg Tablet 25 mg PO BEDTIME@20 PRN (Reason: Sleep) fluticasone propionate 50 mcg/actuation [place],Suspension 1 spray INTRANASAL DAILY@14 sertraline 50 mg Tablet 150 mg PO DAILY@08 bupropion HCl 300 mg Tablet Extended Release 24 Hr 300 mg PO DAILY@08 potassium chloride 20 mEq Tablet Extended Release 20 meq PO DAILY@08 gabapentin 600 mg Tablet 600 mg PO TID@08,14,20 ergocalciferol (vitamin D2) [Vitamin D2] 1,250 mcg (50,000 unit) capsule 50,000 unit PO Q7D Rx Instructions: on TUESDAY Eliquis 5 mg tablet 5 mg PO BID@08,20 furosemide 40 mg tablet 40 mg PO DAILY@08 Neosporin (ojh-feh-wyjxh) 3.5mg-400 unit- 5,000 unit/gram Ointment 1 applic TOPICAL BID PRN (Reason: unknown) epinephrine [EpiPen 2-Norm] 0.3 mg/0.3 mL Auto-Injector 0.3 mg IM Q4H PRN (Reason: Allergic Reaction) meloxicam 7.5 mg Tablet 7.5 mg PO DAILY lidocaine 5 % Adhesive Patch,Medicated 1 patch TOPICAL DAILY Rx Instructions: leave on most painful area for up to 12 hrs menthol Gel 1 applic TOPICAL TID PRN (Reason: unknown) calcium carbonate-vitamin D3 [Calcium 600 + D(3)] 600 mg-10 mcg (400 unit) Tablet 1 tab PO DAILY olopatadine 0.2 % drops 1 drp ophthalmic (eye) DAILY PRN (Reason: Dry Eye(S)) Probiotic 3 billion cell Capsule 3,000 mmu cells PO DAILY Rx Instructions: administer with a meal albuterol sulfate 90 mcg/actuation HFA aerosol inhaler 2 inh inhalation Q4H PRN (Reason: shortness of breath or wheezing) Qty: 6.7 1RF furosemide 20 mg tablet See Rx Instructions .ROUTE .COMPLEX Rx Instructions: 20 mg orally at noon Elidel 1 % cream 1 applic TOPICAL BID Rx Instructions: APPLY IN ABDOMINAL FOLDS TWICE DAILY FOR TWO MONTHS diclofenac sodium 1 % gel 4.5 inch TOPICAL QID PRN (Reason: Pain) losartan 25 mg tablet 25 mg PO DAILY ciclopirox 0.77 % cream 1 applic topical BID PRN (Reason: Rash) Rx Instructions: Apply to red areas twice a day, as needed. aripiprazole 10 mg tablet 10 mg PO DAILY fluconazole 100 mg Tablet 200 mg PO DAILY 30 Days Qty: 30 0RF Discharge Orders: Discharge ED (Routine); Ordered 02/14/23 Ordered By: Brandan Walters Referrals: Fern Aguilar FNP [Primary Care Provider] - Discharge Diet: Usual diet Discharge Activity: Increase activity as tolerated Patient Instructions: Diaper Rash (ED), Skin Yeast Infection (ED) Activity Restrictions/Additional Instructions: 2 times a day patient needs cleaned thoroughly with mild soap and water and a barrier cream needs to be applied with zinc oxide in it. Desitin or other diaper rash cream may be appropriate. Other options and recommendations are patient may need to use a diaper in order to decrease moisture. The use of the nystatin powder is not very effective in eradicating the yeast or protecting the skin. Follow-up with primary care in one week for recheck of rash. It is very important that you stay dry. 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
[2023-02-14] MEDS: doxycycline 100 mg Tablet PO (19:37)
[2023-02-14] MEDS: metroNIDAZOLE 500 MG Tablet PO (19:37)
== END 2023-02-14 19:55 | disposition home or self-care (01) ==
PROVIDERS: Emergency Provider Nurse Practitioner Family; PCP Nurse Practitioner Family
DX: L24.A2 Irritant contact dermatitis due to fecal, urinary or dual incontinence (principal); R32 Unspecified urinary incontinence; L30.4 Erythema intertrigo; Z79.01 Long term (current) use of anticoagulants; I11.0 Hypertensive heart disease with heart failure; I50.9 Heart failure, unspecified
CPT/HCPCS: 99283

== ENCOUNTER 2023-02-27 08:23 | Inpatient (IN) | payer MEDICAID, SELFPAY ==
[2023-02-27] VITALS (104 sets, daily range): BP systolic 105–195; BP diastolic 43–115; PULSE 80–108; RESP 18–30; TEMP 36.8–37.2; O2SAT 74–99; BMI 83.7
--- NOTE | 2023-02-27 08:50 | ED_ITS ---
HPI - SOB/Dyspnea General: Chief Complaint: Shortness of Breath/Dyspnea Stated Complaint: SOB Time Seen by Provider: 02/27/23 08:41 History of Present Illness: HPI Narrative: 38-year-old female that is morbidly obese presents to the emergency department with severe shortness of breath. She states this has been ongoing for the previous 2 days. Patient is requiring a nonrebreather oxygen mask at 15 L and currently has an oxygen saturation of 99%. Patient states that when the EMS moved her to the cot they hit her right foot and she is complaining out of 4 out of 10 pain of her right foot. Associated symptoms: Reports extremity pain Review of Systems General: Reports: 10 or more systems reviewed and unremarkable except in HPI and below Resp: Reports: dyspnea and non-productive cough Musc: Reports: extremity pain and joint pain [facility] ED PFSH: Medical History Benign essential HTN Bipolar disorder Body mass index (BMI) greater than 70 in adult Chronic hypoxic respiratory failure Congestive heart failure Echo 06/2021: LV systolic function normal with EF of 55 to 60%, mild pulmonary hypertension with RVSP 35-40mmHg Depression Elevated brain natriuretic peptide (BNP) level Fibromyalgia syndrome Hypothyroidism [facility] endocrinology--Dr Haider Morbid obesity BMI 80+; has some features of pradar willi syndrome, but states she was tested at [facility] and does not carry formal diagnosis Nocturnal enuresis Nocturnal hypoxemia Nocturnal polyuria Obesity hypoventilation syndrome Osteoarthritis Psychiatric disorder Sleep apnea Sleep study 07/2021 severe sleep apnea with hypoxemia. Sleep titration recommended. Non-invasive ventilator recommended. As of 01/2023 has not had titration study. Suspected pulmonary embolism diagnosis in early 2021 for which chronic anticoagulation initiated Surgical History H/O laparoscopy (~2010) treatment of ovarian cysts; performed in [place] History of cholecystectomy 2017-lap History of colonoscopy with polypectomy 2018 History of dental surgery History of placement of ear tubes History of tonsillectomy and adenoidectomy Family History Grandmother Breast cancer Maternal--dx age unknown Diabetes Maternal Hypertension Maternal Mother Breast cancer dx age 40's ; unknown if hormone receptive Thyroid disease Grandfather No problems noted. Sister Thyroid disease Denies family history of Colon cancer Ovarian cancer Hypercholesteremia Uterine cancer Stroke Physical Exam Narrative: EXAM NARRATIVE: Constitutional: the patient appears well nourished and with normal development. Vital signs reviewed as documented. HENMT: Normocephalic, atraumatic. Extermal ears with normal appearance without drainage. Nose without drainage, normal appearance. Mucus membranes moist. Neck is supple, No jugular venous distension, trachea is midline, no appreciable carotid bruits. No lymphadenopathy. No meningeal signs. Flexion, extension and lateral rotation is without pain. Eyes: Pupils are equal, round, reactive to light and accommodation. No scleral icterus. Extra-ocular movement are intact. Thorax is symmetrical and with equal rise and fall with respirations. Resp: Lungs decreased bilaterally in the bases Bilateral wheezes throughout. Mild respiratory distress noted . Cardio: Regular rate and rhythm. Positive S1, S2. No appreciable murmurs, rubs or gallops. GI: Abdominal exam reveals normal bowel sounds to all quadrants. No organomegaly. No obvious palpable masses noted. No hepatomegally appreciated. Soft, nontender to palpation. Extremity: Extremities are non-edematous and both femoral and pedal pulses are 2+ and equal bilaterally. Moves all extremities well, sensation in all extremities. Right lateral lower leg tender to palpation concerning for fracture Neuro: Alert and oriented x4, person, place, time and situation. Cranial nerves II through XII are grossly intact, there is no focal neurological deficits that I can appreciate at present. Motor strength in the upper and lower extremities are equal and bilateral 5/5. Psych: Cooperative, calm, normal thought process, appropriate judgment. Skin: No lesions, rashes. No gross abnormalities noted. Back: Symmetrical, no obvious deformity, No CVA tenderness Course ED course: I reviewed the radiographic examination and determined the need for fracture stabilization via splint. A posterior short leg splint was utilized. The splint was ordered and placed by the nursing staff, under the direct superv ision of myself (ER Physician. The patient's neurovascular status was evaluated and was intact before and after the application of the splint. Capillary refill was less than 3 seconds before and after the application. The patient was splinted and the most appropriate anatomical and functional posi tion at that time. Anticipatory guidance, return precautions and red flag precautions were provided to the patient and support person. The patient/support person was advised to contact the patient's primary care provider or Orthopedic provider to make a follow-up appointment for additional evaluation and treatment within the next 3-5 days. Vital Signs: Vital signs: Vital Signs Temperature 98.3 F 02/27/23 08:36 Pulse Rate 87 02/27/23 13:44 Respiratory Rate 30 H 02/27/23 13:44 Blood Pressure 143/66 02/27/23 12:10 Pulse Oximetry 95 02/27/23 13:44 Oxygen Delivery Me thod CPAP 02/27/23 13:44 Oxygen Flow Rate 15 02/27/23 08:36 Fraction of Inspir ed Oxygen 60 02/27/23 12:14 MDM - SOB/Dyspnea Medical Decision Making CBC CMP cardiac enzymes twelve-lead EKG chest x-ray right ankle x-ray DuoNeb breathing treatment Medical Records I reviewed the patient's medical records. Lab Data I reviewed the patient's lab results. 02/27/23 09:27 02/27/23 09:27 Labs/Radiology: Radiology Impressions Chest X-Ray 02/27/23 08:55 IMPRESSION: 1. Increased bilateral pulmonary edema and/or pneumonitis with increased pulmonary vascular congestion. 2. Unchanged moderate cardiomegaly. Ankle X-Ray 02/27/23 09:12 IMPRESSION: Distal right fibular fracture. Laboratory Results WBC 11.14 10^3/uL (3.29-11.43) 02/27/23 09:27 RBC 4.07 10^6/uL (3.85-5.65) 02/27/23 09:27 Hgb 11.10 g/dL (11.27-16.99) L 02/27/23 09:27 Hct 42.0 % (36-47) 02/27/23 09:27 MCV 103.2 fl (85-98) H 02/27/23 09:27 MCH 27.3 pg (27-33) 02/27/23 09:27 MCHC 26.4 g/dL (30-55) L 02/27/23 09:27 RDW 22.4 % (12.1-15.1) H 02/27/23 09:27 Plt Count 215 10^3/cmm (157-399) 02/27/23 09:27 MPV 10.7 fL (7.4-10.4) H 02/27/23 09: Neut % (Auto) 75.2 % 02/27/23 09: Lymph % (Auto) 13.0 % 02/27/23 09: [place] % (Auto) 7.7 % 02/27/23 09: Eos % (Auto) 2.8 % 02/27/23 09: Baso % (Auto) 0.5 % 02/27/23: Neut # (Auto) 8.37 10^3/uL (1.8-7.7) H 02/27/23 09: Lymph # (Auto) 1.5 10^3/uL (0.8-4.8) 02/27/23 09: [place] # (Auto) 0.9 10^3/uL (0.2-0.9) 02/27/23 09: Eos # (Auto) 0.3 10^3/uL (0.0-0.8) 02/27/23 09: Baso # (Auto) 0.1 10^3/uL (0.0-0.1) 02/27/23 09: Nucleated RBC % (auto) 0.4 % 02/27/23 09: Nucleated RBCs # 0.0 /100WBC 02/27/23 09: PT 16.40 SECONDS (12.1-14.9) H 02/27/23 09: INR 1.28 (0.8-1.2) H 02/27/23 09: D-Dimer 2.46 ug/mLFEU (0-0.59) H 02/27/23 09: Specimen Type Arterial 02/27/23 09: Sample Site Radial, right 02/27/23 09: ABG pH 7.22 (7.35-7.45) L 02/27/23 09: ABG pCO2 113.0 mmHg (35-45) H* 02/27/23 09: ABG pO2 75.9 mmHg (80.0-100.0) L 02/27/23 09: ABG PO2/FiO2 Ratio 0 02/27/23 09: ABG HCO3 46.2 mmol/L (22-26) H 02/27/23 09: ABG Base Excess 14.5 mmol/L (-2.0-2.0) H 02/27/23 09: Tyrese Test Pos 02/27/23 09:27 Hematocrit 33.6 % (37-47) L 02/27/23 09:27 Hgb O2 Saturation 90.7 % (95-100) L 02/27/23 09: Carboxyhemoglobin 3.3 %THgb (0.4-20.1) 02/27/23 09: Methemoglobin 0.5 % (0.4-1.5) 02/27/23 09: Total Hemoglobin 11.0 g/dL (12-16) L 02/27/23 09: O2 Delivery Device Nrb 02/27/23 09: O2 Liters/Min 15.0 % 02/27/23 09: FiO2 100.0 % 02/27/23 09: Expense Clerk ID Monro 02/27/23 09: Sodium 143 mmol/L (136-145) 02/27/23 09: Potassium 5.2 mmol/L (3.5-5.1) H 02/27/23 09: Chloride 98 mmol/L (98-107) 02/27/23 09: Carbon Dioxide 43 mmol/L (22-29) H* 02/27/23 09:27 Anion Gap 7.2 (5-19) 02/27/23 09: BUN 16 mg/dL (6-20) 02/27/23 09: Creatinine 0.9 mg/dL (0.5-0.9) 02/27/23 09: GFR Calculation 70.1 mL/min (90-130) L 02/27/23 09: Glucose 123 mg/dL (65-115) H 02/27/23 09:27 Calculated Osmolality 299 mOsm/kg (285-295) H 02/27/23 09:27 Lactic Acid 0.8 mmol/L (0.5-2.2) 02/27/23 09: Calcium 8.9 mg/dL (8.5-10.5) 02/27/23 09:27 Total Bilirubin 0.3 mg/dL (0.15-1.2) 02/27/23 09: AST 17 U/L (0-32) 02/27/23 09:27 ALT 11 U/L (0-33) 02/27/23 09:27 Alkaline Phosphatase 152 U/L (35-105) H 02/27/23 09:27 NT-Pro-B Natriuret Pep 1296 pg/mL (0-125) H 02/27/23 09:27 Total Protein 6.6 g/dL (6.6-8.7) 02/27/23 09:27 Albumin 3.6 g/dL (3.5-5.2) 02/27/23 09:27 Globulin 3.0 g/dL (1.3-4.6) 02/27/23 09:27 SARS-CoV-2 Ag (Rapid) negative (Negative) 02/27/23 09:14 All radiology interpretation(s) finalized by discharge Critical Care Time Critical Care Time: Critical Care Time: Yes Total Critical Care Time: 70 Attestation: This case had a high probability of a clinically significant, sudden, or life threatening deterioration of this patient's condition which required my full and direct attention, intervention and personal management. 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
--- NOTE | 2023-02-27 08:55 | XRR_ITS ---
PROCEDURE INFORMATION: Exam: XR Chest Exam date and time: 02/27/2023 9:35 AM Age: 38 years old Clinical indication: Shortness of breath; Additional info: Dyspnea TECHNIQUE: Imaging protocol: Radiologic exam of the chest. Views: 1 view. COMPARISON: CR (CHEST, ) 12/17/2022 9:45 PM FINDINGS: Lungs: Increased, diffuse bilateral pulmonary edema and/or pneumonitis. Increased pulmonary vascular congestion. Pleural spaces: Unremarkable. No pleural effusion. No pneumothorax. Heart/Mediastinum: Unchanged moderate cardiomegaly. Bones/joints: Unremarkable. XR/XR chest 1V portable [id number] IMPRESSION: 1. Increased bilateral pulmonary edema and/or pneumonitis with increased pulmonary vascular congestion. 2. Unchanged moderate cardiomegaly.
[2023-02-27] MEDS: ipratropium-albuterol 3 mL Neb INHALATION ×2 (09:10→19:43)
--- NOTE | 2023-02-27 09:12 | XRR_ITS ---
PROCEDURE INFORMATION: Exam: XR Right Ankle Exam date and time: 02/27/2023 9:38 AM Age: 38 years old Clinical indication: Injury or trauma; Fall; Blunt trauma; Ankle; Right; Additional info: Pain fall TECHNIQUE: Imaging protocol: Radiologic exam of the right ankle. Views: 1 or 2 views. COMPARISON: No relevant prior studies available. FINDINGS: Bones/joints: Slightly displaced oblique fracture distal right fibula at the level of the ankle. Otherwise, unremarkable. Soft tissues: Soft tissue swelling. XR/XR ankle RT 2V [id number] IMPRESSION: Distal right fibular fracture.
[2023-02-27 09:35] LABS: ABG PH Result 7.22 (7.35-7.45); Arterial Blood Gas Hematocrit 33.6 % (37-47); Base Excess ABG 14.5 mmol/L (-2.0-2.0); Blood Gas Allen Test Pos; Blood Gas Operator Identificat MONRO; Blood Gas Sample Site Radial, right; Blood Gas Sample Type Arterial; Carboxyhemoglobin 3.3 %THgb (0.4-20.1); HCO3 ABG 46.2 mmol/L (22-26); HGB O2 Sat 90.7 % (95-100); Methemoglobin 0.5 % (0.4-1.5); Oxygen Device NRB; PO2 ABG 75.9 mmHg (80.0-100.0); PO2 FiO2 Ratio Arterial Blood 0
[2023-02-27 09:40] LABS: Basophils # 0.1 10^3/uL (0.0-0.1); Basophils % 0.5 %; Eosinophils # 0.3 10^3/uL (0.0-0.8); Eosinophils % 2.8 %; Lymphocytes # 1.5 10^3/uL (0.8-4.8); Mean Corpuscular HGB Conc 26.4 g/dL (30-55); Mean Corpuscular Hemoglobin 27.3 pg (27-33); Mean Corpuscular Volume 103.2 fl (85-98); Mean Platelet Volume 10.7 fL (7.4-10.4); Monocytes # 0.9 10^3/uL (0.2-0.9); Monocytes % 7.7 %; Neutrophils # 8.37 10^3/uL (1.8-7.7); Neutrophils % 75.2 %; Nucleated Red Blood Cells % 0.4 %; Platelet Count 215 10^3/cmm (157-399); Red Blood Count 4.07 10^6/uL (3.85-5.65); Red Cell Distribution Width 22.4 % (12.1-15.1); White Blood Count 11.14 10^3/uL (3.29-11.43)
[2023-02-27 09:48] LABS: SARS Covid-2 Antigen negative (Negative)
[2023-02-27 09:51] LABS: INR 1.28 (0.8-1.2)
[2023-02-27 09:54] LABS: D Dimer 2.46 ug/mLFEU (0-0.59)
[2023-02-27 09:55] LABS: Lactic Sepsis W/Reflex 0.8 mmol/L (0.5-2.2)
[2023-02-27 09:56] LABS: Total Bilirubin 0.3 mg/dL (0.15-1.2)
--- NOTE | 2023-02-27 10:08 | PC.NURSE ---
nurse assumed care at 1010am
[2023-02-27 10:25] LABS: Albumin Level 3.6 g/dL (3.5-5.2); Alkaline Phosphatase 152 U/L (35-105); Blood Urea Nitrogen 16 mg/dL (6-20); Calcium 8.9 mg/dL (8.5-10.5); Chloride 98 mmol/L (98-107); Glomerular Filtration Rate 70.1 mL/min (90-130); Glucose 123 mg/dL (65-115); NT Pro B Type Natriuretic Pept 1296 pg/mL (0-125); Osmolality Calculated 299 mOsm/kg (285-295); Potassium 5.2 mmol/L (3.5-5.1); Sodium 143 mmol/L (136-145)
[2023-02-27 10:26] LABS: Alanine Aminotransferase 11 U/L (0-33); Anion Gap 7.2 (5-19); Aspartate Amino Transferase 17 U/L (0-32); Total Protein 6.6 g/dL (6.6-8.7)
[2023-02-27 10:33] LABS: Carbon Dioxide 43 mmol/L (22-29)
--- NOTE | 2023-02-27 11:45 | PC.NURSE ---
ASSUMED CARE AT 1115 REPORT GIVEN BY STEPHANIE ADAN
--- NOTE | 2023-02-27 12:32 | PC.NURSE ---
PT REPORT CALLED TO NGUYEN SMITH AT [facility]
--- NOTE | 2023-02-27 14:29 | CTR_ITS ---
PROCEDURE INFORMATION: Exam: CTA Chest With Contrast Exam date and time: 02/27/2023 4:59 PM Age: 38 years old Clinical indication: Shortness of breath; Patient HX: PT was 488; Additional info: Assess for pe. TECHNIQUE: Imaging protocol: Computed tomographic angiography of the chest with contrast. Exam focused on the arteries. 3D rendering (Not supervised by radiologist): MIP and/or 3D reconstructed images were created by the technologist. Radiation optimization: All CT scans at this facility use at least one of these dose optimization techniques: automated exposure control; mA and/or kV adjustment per patient size (includes targeted exams where dose is matched to clinical indication); or iterative reconstruction. Contrast material: Omni 350; Contrast volume: 100 ml; Contrast route: INTRAVENOUS (IV); REPORTING DATA: Count of CT and Cardiac NM exams in prior 12 months: This patient has received 0 known CTs and 0 known cardiac nuclear medicine studies in the 12 months prior to the current study. COMPARISON: CT angio chest PE protcl [id number] 06/15/2021 9:24 PM RADIATION DOSE METRICS: Total DLP (mGy-cm): 568.61 FINDINGS: Limitations: Study is technically limited due to body habitus. Pulmonary arteries: Evaluation of peripheral pulmonary arteries is limited secondary to the phase of contrast enhancement. No filling defects in the central pulmonary arteries to suggest a large pulmonary embolism. Aorta: No evidence for aortic aneurysm or aortic dissection. Trachea: Tracheobronchial structures are patent. Lungs: Bilateral lower lobe, right middle lobe, and right upper lobe airspace disease suspicious for multifocal pneumonia. No pulmonary parenchymal nodules or masses. Pleural spaces: No pneumothorax. No pleural effusion. Heart: Stable moderate enlargement of the heart. Esophagus: The esophagus is unremarkable. Mediastinal space: No mediastinal hematoma. No pneumomediastinum. Lymph nodes: Interval development of enlarged lymph nodes in the chest. Right axillary lymph nodes measure up to 1.7 cm in short axis (series 7, image 192). Enlarged mediastinal and bilateral hilar lymph nodes measuring up to 2.5 cm in short axis (series 7, image 189). Liver: The visualized liver is unremarkable. Gallbladder and bile ducts: No dilatation of the visualized bile ducts. Pancreas: The visualized pancreas is unremarkable. No pancreatic ductal dilatation. Spleen: Multiple calcified granulomas in the visualized spleen. Mild enlargement of the visualized spleen measuring 16.1 cm in AP diameter (series 7, image 449). Adrenal glands: The right and left adrenal glands are unremarkable. Kidneys and ureters: The visualized right and left kidneys are unremarkable. Bones/joints: Degenerative changes in the spine and shoulders. Soft tissues: No acute abnormality in the extrathoracic soft tissues. CT/CT angio chest PE protcl [id number] IMPRESSION: 1. Bilateral lower lobe, right middle lobe, and right upper lobe airspace disease suspicious for multifocal pneumonia. Recommend clinical correlation. Recommend followup chest imaging to insure resolution of these findings. 2. Evaluation of peripheral pulmonary arteries is limited secondary to the phase of contrast enhancement. No filling defects in the central pulmonary arteries to suggest a large pulmonary embolism. 3. Mild enlargement of the visualized spleen. 4. Interval development of nonspecific right axillary, mediastinal, and bilateral hilar, lymphadenopathy. This could be reactive in nature. However, followup imaging is recommended to ensure stability/resolution. 5. Incidental/nonacute findings are listed in the report.
--- NOTE | 2023-02-27 14:32 | XRR_ITS ---
PROCEDURE INFORMATION: Exam: XR Right Ankle Exam date and time: 02/27/2023 2:58 PM Age: 38 years old Clinical indication: Abnormal findings; Abnormal imaging study; Patient HX: RT ankle pain/swelling post fall TECHNIQUE: Imaging protocol: Radiologic exam of the right ankle. Views: 3 or more views. COMPARISON: CR (LOW EXM, ) 02/27/2023 9:38 AM FINDINGS: Bones/joints: Closed reduction of distal right fibular fracture. Otherwise, unremarkable. Soft tissues: Normal. XR/XR ankle RT min 3V* [id number] IMPRESSION: Successful closed reduction of distal right fibular fracture.
--- NOTE | 2023-02-27 15:13 | PM.HP ---
Providers/Chief Complaint Admitting Physician: Dirk Vick Primary Care Provider: RANDY Stevens Chief Complaint: SOB History of Present Illness 38-year-old lady with morbid obesity BMI 83.8, history of congestive heart failure, obstructive sleep apnea with recommended titration, though has not had the assessment, OHS, hypothyroidism, bipolar disorder, history of suspected PE on Eliquis, other medical problems presented due to progressive worsening dyspnea, productive cough, [facility] on [facility] to ER cot on arrival, on presentation hypoxic, ABG with respiratory acidosis, hypoxia on 100% FiO2, on 15 L nonrebreather and transported. Chest x-ray with increased bilateral pulmonary edema and/or pneumonitis with increased pulmonary vascular congestion. Unchanged moderate cardiomegaly. Right ankle x-ray with distal right fibular fracture. Review of Systems Const: Reports: fatigue; Denies: fever(s) ENMT: Denies: throat pain Card: Denies: chest pain, edema, pre-syncope or dyspnea on exertion Resp: Reports: dyspnea, productive cough and change in phlegm color; Denies: hemoptysis GI: Denies: abdominal pain, nausea, vomiting, diarrhea, constipation, hematochezia or melena : Denies: flank pain, urinary frequency or hematuria Musc: Denies: back pain, joint swelling or joint redness Skin/Breast: Denies: rash or new lesions Neuro: Denies: headache(s), numbness in extremities, weakness in extremities, dizziness, confusion or seizure-like activity Endo: Denies: polyuria Medications/Allergies Home Medications Medication Instructions Recorded Confirmed Last Taken Type bupropion HCl 300 mg 24 hr tablet, 300 mg PO DAILY@02/16/20 02/27/23 02/26/23 History extended release cetirizine 10 mg tablet 10 mg PO DAILY@02/16/20 02/27/23 02/26/23 History famotidine 20 mg tablet 20 mg PO DAILY@02/16/20 02/27/23 02/26/23 History fluticasone propionate 50 1 spray intranasal DAILY@02/16/20 02/27/23 02/26/23 History mcg/actuation nasal spray,suspension hydroxyzine HCl 25 mg tablet 25 mg PO BEDTIME@20 PRN Sleep 02/16/20 02/27/23 02/26/23 History levothyroxine 100 mcg tablet 100 mcg PO DAILY@02/16/20 02/27/23 02/26/23 History potassium chloride 20 mEq 20 meq PO DAILY@02/16/20 02/27/23 02/26/23 History tablet,extended release sertraline 50 mg tablet 150 mg PO DAILY@02/16/20 02/27/23 02/26/23 History gabapentin 600 mg tablet 600 mg PO TID@05/12/20 02/27/23 02/26/23 History diphenhydramine HCl 25 mg capsule 25 mg PO Q6H PRN Allergy Symptoms 07/24/20 02/27/23 Unknown History (Banophen) dicyclomine 10 mg capsule 10 mg PO TID PRN Abdominal 06/15/21 02/27/23 Unknown History Discomfort loperamide 2 mg capsule 2 mg PO Q8H PRN Diarrhea 06/15/21 02/27/23 06/14/21 History oxcarbazepine 300 mg tablet 300 mg PO BID@06/15/21 02/27/23 02/26/23 History lanolin alcohols-mineral 1 applic topical BID PRN unknown 07/01/21 02/27/23 Unknown History oil-w.petrolatum-ceresin topical cream (Eucerin topical cream) apixaban 5 mg tablet (Eliquis) 5 mg PO BID@11/26/21 02/27/23 02/26/23 History epinephrine 0.3 mg/0.3 mL 0.3 mg IM Q4H PRN Allergic Reaction 11/26/21 02/27/23 Unknown History injection, auto-injector (EpiPen 2-Norm) ergocalciferol (vitamin D2) 1,250 50,000 unit PO Q7D 11/26/21 02/27/23 02/26/23 History mcg (50,000 unit) capsule (Vitamin D2) furosemide 40 mg tablet 40 mg PO DAILY@11/26/21 02/27/23 02/26/23 History neomycin-bacitracn Zn-polymyx 3.5 1 applic topical BID PRN unknown 11/26/21 02/27/23 Unknown History mg-400 unit-5,000 unit/gram top oint (Neosporin (gtf-fdy-dbiof)) calcium carbonate 600 mg-vitamin 1 tab PO DAILY 02/12/22 02/27/23 02/26/23 History D3 10 mcg (400 unit) tablet (Calcium 600 + D(3)) lactobacillus combination no.4 3 3,000 mmu cells PO DAILY 02/12/22 02/27/23 02/26/23 History billion cell capsule (Probiotic) lidocaine 5 % topical patch 1 patch topical DAILY 02/12/22 02/27/23 01/16/23 History meloxicam 7.5 mg tablet 7.5 mg PO DAILY 02/12/22 02/27/23 02/26/23 History menthol 1 applic topical BID PRN JOINT PAIN 02/12/22 02/27/23 02/15/23 History olopatadine 0.2 % eye drops 1 drp ophthalmic (eye) DAILY PRN 02/12/22 02/27/23 Unknown History Dry Eye(S) albuterol sulfate 90 mcg/actuation 2 inh inhalation Q4H PRN shortness 06/25/22 02/27/23 Unknown Rx aerosol inhaler of breath or wheezing #6.7 grams spironolactone 25 mg tablet 12.5 mg PO DAILY 07/05/22 02/27/23 02/26/23 History aripiprazole 10 mg tablet 10 mg PO DAILY 01/17/23 02/27/23 02/26/23 History ciclopirox 0.77 % topical cream 1 applic topical BID PRN Rash 01/17/23 02/27/23 Unknown History diclofenac sodium 1 % topical gel 4.5 inch topical QID PRN Pain 01/17/23 02/27/23 Unknown History furosemide 20 mg tablet See Rx Instructions .Route .COMPLEX 01/17/23 02/27/23 02/26/23 History pimecrolimus 1 % topical cream 1 applic topical BID 01/17/23 02/27/23 02/26/23 History (Eliayan) norethindrone (contraceptive) 0.35 0.35 mg PO DAILY #84 tabs 01/25/23 02/27/23 02/26/23 Rx mg tablet nystatin 100,000 unit/gram topical 1 applic topical BID #60 grams 01/26/23 02/27/23 02/26/23 Rx powder zinc oxide 22 % topical cream 1 applic topical BID #113 grams 02/14/23 02/27/23 02/26/23 Rx camphor-methyl salicylate-menthol See Rx Instructions .Route .COMPLEX 02/27/23 02/27/23 Unknown History topical patch cyclobenzaprine 10 mg tablet 10 mg PO TID PRN Muscle Spasm 02/27/23 02/27/23 Unknown History eucalyptus-menthol oral mucosal See Rx Instructions .Route .COMPLEX 02/27/23 02/27/23 Unknown History lozenge hydroxyzine HCl 25 mg tablet 25 mg PO DAILY PRN Anxiety 02/27/23 02/27/23 Unknown History losartan 25 mg tablet 25 mg PO DAILY 02/27/23 02/27/23 02/26/23 History oxybutynin chloride 5 mg 5 mg PO DAILY 02/27/23 02/27/23 02/26/23 History tablet,extended release 24 hr Allergies Allergy/AdvReac Type Severity Reaction Status Date / Time acetaminophen [From Tylenol] Allergy ALGY-Rash Verified 02/27/23 08:36 aspirin Allergy ALGY-Rash Verified 02/27/23 08:36 azithromycin Allergy ALGY-Rash Verified 02/27/23 08:36 haloperidol [From Haldol] Allergy ADR-Seizure Verified 02/27/23 08:36 tramadol Allergy ADR-Seizure Verified 02/27/23 08:36 ibuprofen AdvReac Mild Unknown Verified 02/27/23 08:36 bee strings Allergy Anaphylaxis Uncoded 01/25/23 15:05 PFSH Acute PFSH: Medical History Benign essential HTN Bipolar disorder Body mass index (BMI) greater than 70 in adult Chronic hypoxic respiratory failure Congestive heart failure Echo 06/2021: LV systolic function normal with EF of 55 to 60%, mild pulmonary hypertension with RVSP 35-40mmHg Depression Elevated brain natriuretic peptide (BNP) level Fibromyalgia syndrome Hypothyroidism [facility] endocrinology--Dr Haider Morbid obesity BMI 80+; has some features of pradar willi syndrome, but states she was tested at [facility] and does not carry formal diagnosis Nocturnal enuresis Nocturnal hypoxemia Nocturnal polyuria Obesity hypoventilation syndrome Osteoarthritis Psychiatric disorder Sleep apnea Sleep study 07/2021 severe sleep apnea with hypoxemia. Sleep titration recommended. Non-invasive ventilator recommended. As of 01/2023 has not had titration study. Suspected pulmonary embolism diagnosis in early 2021 for which chronic anticoagulation initiated Surgical History H/O laparoscopy (~2010) treatment of ovarian cysts; performed in [place] History of cholecystectomy 2017-lap History of colonoscopy with polypectomy 2017 History of dental surgery History of placement of ear tubes History of tonsillectomy and adenoidectomy Family History Grandmother Breast cancer Maternal--dx age unknown Diabetes Maternal Hypertension Maternal Mother Breast cancer dx age 40's ; unknown if hormone receptive Thyroid disease Grandfather No problems noted. Sister Thyroid disease Denies family history of Colon cancer Ovarian cancer Hypercholesteremia Uterine cancer Stroke Vitals/I&O/Wt Last Vital Signs Temp 98.3 F 02/27/23 08:36 Pulse 93 02/27/23 14:02 Resp 25 H 02/27/23 14:02 BP 143/66 02/27/23 12:10 Pulse Ox 97 02/27/23 14:15 O2 Del Method CPAP 02/27/23 14:02 O2 Flow Rate 15 02/27/23 08:36 FiO2 50 02/27/23 14:15 Weight last 48 hrs Weight 221.353 kg Physical Exam Const: COMMON NORMALS: patient oriented x3 and alert GENERAL APPEARANCE: cooperative NUTRITIONAL APPEARANCE: obese morbidly obese ORIENTATION/CONSCIOUSNESS: Yes awake OTHER: She is awake and alert, conversant, somewhat impulsive but appears to have insight, provides history. HENMT: COMMON NORMALS: oropharynx normal Neck/C-Spine: COMMON NORMALS: no JVD Resp: COMMON NORMALS: normal respiratory effort and clear to auscultation bilaterally AUSCULTATION: clear to auscultation bilaterally OTHER: BiPAP on Cardio: COMMON NORMALS: no JVD, regular rhythm, S1 normal heart sound present, S2 normal heart sound present and No murmurs present (Cardio) RHYTHM: regular rhythm HEART SOUNDS: S1 normal heart sound present and S2 normal heart sound present GI: COMMON NORMALS: Normal to inspection, nondistended, normoactive bowel sounds present, Soft to palpation and non-tender PALPATION: Yes Soft to palpation Extremity: COMMON NORMALS: no joint enlargement and no pedal edema OTHER: Right ankle splint Neuro: COMMON NORMALS: patient oriented x3 and moves all extremities SENSORIUM/ORIENTATION: Yes alert OTHER: Some degree of asterixis. Skin: COMMON NORMALS: no rashes or lesions noted GENERAL SKIN EXAM: no rashes or lesions noted Data 02/27/23 09:27 02/27/23 09:27 Micro: Microbiology 02/27/23 09:33 Blood Culture - Preliminary Blood SPECIMEN COLLECTED 02/27/23 09:27 Blood Culture - Preliminary Blood SPECIMEN COLLECTED A&P Assessment and plan (1) Respiratory failure: Hypoxic, hypercapnic respiratory failure. With respiratory cytosis. Reviewed vitals, CBC, INR, D-dimer, ABG, CMP, UA, rapid COVID-19, chest x-ray. Reviewed ER documentation, discussed with ER physician. Appears respiratory failure secondary to combination of possibly pneumonitis versus pulmonary edema, CHF decompensation, combined with OHS, possibly contribution of ALYX to pulmonary edema as she has diagnosed sleep apnea but has not had titration study so far, does not have BiPAP. D-dimer noted abnormal. With history of possible PE in the past. He is on Eliquis, however, still possibility of PE. Will assess closely with CTA to further assess for PE and pulmonary picture given respiratory failure. Obtain respiratory viral panel, sputum culture. IV Lasix for CHF exacerbation. Monitor GUANAKO. Monitor weights. Assess additionally for any cardiac ischemia as a trigger for CHF decompensation. She denies chest pain or pressure. Will continue troponin EKG series. TTE Possibility of pulmonary edema component also from untreated ALYX, OHS. Would benefit from BiPAP nightly, completion of titration study for outpatient BiPAP. Follow-up for weight loss. Empiric coverage with Levaquin for bronchitis, versus possible atypical pneumonia. Breathing treatments. BiPAP support, wean down as tolerating. Normally on 5 L nasal cannula oxygen. In ER she took off the BiPAP mask, placed on 5 L nasal cannula, mask had to be replaced as saturation was not recovering, decreased down into the low 70s. Had to replace BiPAP immediately. Saturation gradually improved. Underlying ALYX, OHS. Hold outpatient medications may be contributing to encephalopathy. CLD only for now. Repeat ABG. (2) D-dimer, elevated: Assess by CTA for any PE given severity of hypoxia, tachycardia, dyspnea. Continue Eliquis. (3) Fibula fracture: Possibly after fall on transfer on arrival with subsequent pain in the right ankle, ankle x-ray showing distal fibular fracture. Splinted in ER. Discussed with orthopedics, consultation placed, may benefit from casting. Nonweightbearing right lower extremity. Likely would benefit from surgical repair as well however, currently condition not safe to undergo surgery at this time. Treat current conditions, follow-up with podiatry in office in about 2 weeks per discussion. Depending on results of above cardiac evaluation and her condition, cardiology consultation may be considered, although given difficulties with mobility, nonweightbearing on right lower extremity, morbid obesity, risk of falls, consideration could be given to obtaining cardiac clearance for her surgery prior to discharge. IV morphine for severe pain, hydrocodone for moderate to severe pain. She is allergic to acetaminophen, ibuprofen. (4) Acute encephalopathy: With asterixis in ER, may be secondary to respiratory acidosis, otherwise he is on a number of medications that could contribute, continue low-dose aripiprazole for now, hold bupropion, cyclobenzaprine, gabapentin, sertraline, reassess condition, consider cautious resumption. Plan Pressure ulcer: Reported having pressure ulcer. Reportedly exacerbated as she has been refusing to shower. Dressing. Reposition as best as possible. Moisture injury: Zinc oxide, although per discussion with pharmacist we are out of it tonight, should be able to obtain tomorrow. History of congestive heart failure with preserved ejection fraction, with acute decompensation as above, Lasix, monitor GUANAKO, weights. Assess TTE. Complete troponin EKG series. Obstructive sleep apnea with recommended titration, though has not had the assessment, needs titration study to start on BiPAP Morbid obesity BMI 83.8, follow-up for weight loss options OHS, needs titration study to start on BiPAP Hypothyroidism, continue levothyroxine Bipolar disorder, History of suspected PE on Eliquis Other medical problems Attestations Medical Necessity Statement*: Admission of over 2 midnights anticipated for assessment management of respiratory failure complicated by acute encephalopathy with morbid obesity, underlying ALYX, OHS untreated so far, additional comorbidities as above. Coding Level of Care Code Critical Care >/= 30 minutes Critical care time (in minutes): 40 The high probability of a clinically significant, sudden or life threatening deterioration, as referenced in this documentation, required my full and direct attention, intervention and personal management. The critical care time shown is in addition to time spent performing any reported separately billable procedures and includes the following: [x] Data and vital sign review and interpretation [x] Patient assessment, examination and intervention [x] Medication orders and management [x] Patient/Family updates as able [x] Care Coordination and Documentation. Diagnoses Respiratory failure J96.90 D-dimer, elevated R79.89 Fibula fracture S82.409A Acute encephalopathy G93.40
--- NOTE | 2023-02-27 16:20 | PC.NURSE ---
PT TOOK CPAP OFF AND WAS REFUSING TO PUT BACK ON. MD SANCHEZ, TALKED TO PT ABOUT CONSEQUENCES. PT AGREED TO PUT BACK ON. PT REQUESTED TO PEE, IS NWB ON RLE SO PT ASKED FOR SMITH, REFUSED TO TRANSFER TO [facility] AND REFUSED BEDPAN. PT HAS HXOF PEEING ON HERSELF AND SITTING IN IT AND REFUSING TO BATH IN RESULT OF INFECTION OF GENETALS AND SKIN SURROUNDING. SO SMITH WAS PLACED AND SAMPLE WAS COLLECTED.
[2023-02-27 16:42] LABS: Add Urine Culture? No; Amorphous Sediment Urine 1+ /hpf; Bacteria Urine TRACE /hpf; Bilirubin Urine 1+ (Negative); Blood Urine Neg (Negative); Glucose Urine UA Norm (Normal); Ketones Urine 1+ (Negative); Leukocyte Esterase Urine Trace (Negative); Mucus Urine 2+ /hpf; Nitrate Urine Negative (Negative); Protein Urine 1+ (Negative); RBC Urine 0-4 /hpf (0-2); Squamous Epithelial Cell Urine 0-4 /hpf (0-5); Urine Appearance Clear (CLEAR); Urine Color Yellow (Yellow); Urobilinogen Urine 1 mg/dL (Negative); WBC Urine 0-4 /hpf (0-5); pH Urine 5 (5-7)
[2023-02-27] MEDS: iohexol 350 mg/mL 500 mL Btl (per mL) IV (17:01)
[2023-02-27] MEDS: nystatin powder 15 gm Btl 1 APPLIC TOPICAL (17:50)
[2023-02-27] MEDS: FUROsemide 10 mg/mL SDV 4mL 40 MG IVP (17:50)
[2023-02-27] MEDS: pantoprazole 40 mg SDV IVP (17:50)
[2023-02-27] MEDS: levofloxacin-dextrose 5 % 750 MG/150 ML PREMIX 100 MG IV (18:09)
[2023-02-27] MEDS: HYDROcodone-acetaminophen 5-325 mg Tablet 1 TAB PO (18:10)
[2023-02-27 21:41] LABS: Adenovirus Not Detected (NOT DETECT); Chlamydia Pneumoniae Not Detected (NOT DETECT); Coronavirus 229E,HKU1,NL63,OC4 Not Detected (NOT DETECT); Human Metapneumovirus Not Detected (NOT DETECT); Human Rhinovirus/Enterovirus Not Detected (NOT DETECT); Influenza A Not Detected (NOT DETECT); Influenza A H1 Not Detected (NOT DETECT); Influenza A H1-2009 Not Detected (NOT DETECT); Influenza A H3 Not Detected (NOT DETECT); Influenza B Not Detected (NOT DETECT); Mycoplasma Pneumoniae Not Detected (NOT DETECT); Parainfluenza Virus Type 1 Not Detected (NOT DETECT); Parainfluenza Virus Type 2 Not Detected (NOT DETECT); Parainfluenza Virus Type 3 Not Detected (NOT DETECT); Parainfluenza Virus Type 4 Not Detected (NOT DETECT); Respiratory Syncytial Virus A Not Detected (NOT DETECT); Respiratory Syncytial Virus B Not Detected (NOT DETECT); SARS-COV-2 Not Detected (NOT DETECT)
[2023-02-27] MEDS: dexmedeTOMIDine 0.9 % NaCL 400 MCG/100 ML PREMIX 5.53 MCG IV (22:19)
[2023-02-28] VITALS (293 sets, daily range): BP systolic 79–174; BP diastolic 57–113; PULSE 58–97; RESP 16–28; TEMP 36.7–37.3; O2SAT 76–99; BMI 91.0
[2023-02-28] MEDS: ipratropium-albuterol 3 mL Neb INHALATION ×4 (01:32→19:54)
[2023-02-28] MEDS: oxyCODONE 5 mg IR Tab/Cap PO (03:10)
[2023-02-28] MEDS: OLANZapine 10 mg VIAL IM (03:34)
[2023-02-28] MEDS: FUROsemide 10 mg/mL SDV 4mL 40 MG IVP (03:35)
[2023-02-28 04:35] LABS: Basophils # 0.1 10^3/uL (0.0-0.1); Basophils % 0.6 %; Eosinophils # 0.2 10^3/uL (0.0-0.8); Eosinophils % 2.8 %; Hematocrit 40.5 % (36-47); Lymphocytes # 1.7 10^3/uL (0.8-4.8); Lymphocytes % 20.5 %; Mean Corpuscular HGB Conc 26.9 g/dL (30-55); Mean Corpuscular Hemoglobin 27.2 pg (27-33); Mean Platelet Volume 11.1 fL (7.4-10.4); Monocytes # 0.7 10^3/uL (0.2-0.9); Monocytes % 7.9 %; Neutrophils # 5.74 10^3/uL (1.8-7.7); Neutrophils % 67.8 %; Nucleated Red Blood Cells % 0.4 %; Platelet Count 211 10^3/cmm (157-399); Red Blood Count 4.01 10^6/uL (3.85-5.65); Red Cell Distribution Width 22.5 % (12.1-15.1); White Blood Count 8.47 10^3/uL (3.29-11.43)
[2023-02-28 04:47] LABS: Anion Gap 10.5 (5-19); Blood Urea Nitrogen 14 mg/dL (6-20); Calcium 8.8 mg/dL (8.5-10.5); Carbon Dioxide 40 mmol/L (22-29); Chloride 95 mmol/L (98-107); Glomerular Filtration Rate 93.6 mL/min (90-130); Glucose 95 mg/dL (65-115); Osmolality Calculated 292 mOsm/kg (285-295); Potassium 4.5 mmol/L (3.5-5.1); Sodium 141 mmol/L (136-145)
[2023-02-28] MEDS: dexmedeTOMIDine 0.9 % NaCL 400 MCG/100 ML PREMIX 11.07 MCG IV (05:29)
--- NOTE | 2023-02-28 06:00 | USCV_ITS ---
Deann Vega Age: 38 Gender: F : 1985 Exam Date: 02/28/2023 08:45 Ordering Phys: Dirk Vick MD Technologist: Gurwinder Valderrama Exam Location: [facility] [place] Indication: chf BP: / HR: Rhythm: Sinus Technical Quality: Very technically difficult study MEASUREMENTS (Male / Female) Normal Values FINDINGS Left Ventricle Right Ventricle Right Atrium Left Atrium Mitral Valve Aortic Valve Tricuspid Valve Pulmonic Valve Pericardium Aorta IVC CONCLUSIONS Technically difficult echo due to morbid obesity. rad technologist was unable to obtain any echo images in spite of multiple attempts from various position. Jorje Roberts MD (Electronically Signed) Final Date: 02 March 2023 08:55 S
[2023-02-28] MEDS: levothyroxine 100 mcg Tablet PO (07:58)
[2023-02-28] MEDS: apixaban 5 mg Tablet PO ×2 (07:58→20:50)
[2023-02-28] MEDS: ARIPiprazole 10 mg Tablet PO (07:58)
[2023-02-28] MEDS: OXcarbazepine 300 mg Tablet PO ×2 (07:58→20:50)
[2023-02-28] MEDS: nystatin powder 15 gm Btl 1 APPLIC TOPICAL ×2 (08:00→18:18)
[2023-02-28] MEDS: lidocaine 5% Patch 1 PATCH TOPICAL (08:10)
--- NOTE | 2023-02-28 10:04 | P.CONIM_ITS ---
Providers/Reason For Consult Consulting Physician/Specialty*: Manny Raymond D.P.M. Reason for Consult*: Right distal fibular fracture Attending Physician: Casa Beard MD Primary Care Provider: RANDY Stevens History of Present Illness History of Present Illness Deann Vega is a 38 year old brought to [facility] emergency department via EMS 02/27/2023, patient admitted to ICU for respiratory failure. Patient has extensive comorbidities including congestive heart failure, ALYX, hypothyroidism, suspected history of pulmonary embolism and is currently on Eliquis, history of bipolar disorder. Patient fell transferring from the EMS gurney to the OR bed. Patient complains of mild pain to the right ankle. Review of Systems Const: Denies: fever(s) or chills Card: Denies: chest pain or dyspnea on exertion Resp: Reports: dyspnea GI: Denies: abdominal pain, nausea or vomiting : Denies: difficulty voiding Musc: Reports: limited range of motion; Denies: joint pain or joint swelling Skin/Breast: Denies: changes in skin color or dry skin Neuro: Denies: numbness in extremities or weakness in extremities Psych: Denies: anxiety Myles/Lymph: Denies: easy bruising or easy bleeding Medications/Allergies Home Medications Medication Instructions Recorded Confirmed Last Taken Type bupropion HCl 300 mg 24 hr tablet, 300 mg PO DAILY@02/16/20 02/27/23 02/26/23 History extended release cetirizine 10 mg tablet 10 mg PO DAILY@02/16/20 02/27/23 02/26/23 History famotidine 20 mg tablet 20 mg PO DAILY@02/16/20 02/27/23 02/26/23 History fluticasone propionate 50 1 spray intranasal DAILY@02/16/20 02/27/23 02/26/23 History mcg/actuation nasal spray,suspension hydroxyzine HCl 25 mg tablet 25 mg PO BEDTIME@20 PRN Sleep 02/16/20 02/27/23 02/26/23 History levothyroxine 100 mcg tablet 100 mcg PO DAILY@02/16/20 02/27/23 02/26/23 History potassium chloride 20 mEq 20 meq PO DAILY@02/16/20 02/27/23 02/26/23 History tablet,extended release sertraline 50 mg tablet 150 mg PO DAILY@08 02/16/20 02/27/23 02/26/23 History gabapentin 600 mg tablet 600 mg PO TID@05/12/20 02/27/23 02/26/23 His tory diphenhydramine HCl 25 mg capsule 25 mg PO Q6H PRN Allergy Symptoms 07/24/20 02/27/23 Unknown History (Banophen) dicyclomine 10 mg capsule 10 mg PO TID PRN Abdominal 06/15/21 02/27/23 Unknown History Discomfort loperamide 2 mg capsule 2 mg PO Q8H PRN Diarrhea 06/15/21 02/27/23 06/14/21 History oxcarbazepine 300 mg tablet 300 mg PO BID@,06/15/21 02/27/23 02/26/23 Histo ry lanolin alcohols-mineral 1 applic topical BID PRN unknown 07/01/21 02/27/23 Unknown History oil-w.petrolatum-ceresin topical cream (Eucerin topical cream) apixaban 5 mg tablet (Eliquis) 5 mg PO BID@11/26/21 02/27/23 02/26/23 History epinephrine 0.3 mg/0.3 mL 0.3 mg IM Q4H PRN Allergic Reaction 11/26/21 02/27/23 Unknown History injection, auto-injector (EpiPen 2-Norm) ergocalciferol (vitamin D2) 1,250 50,000 unit PO Q7D 11/26/21 02/27/23 02/26/23 History mcg (50,000 unit) capsule (Vitamin D2) furosemide 40 mg tablet 40 mg PO DAILY@08 11/26/21 02/27/23 02/26/23 History neomycin-bacitracn Zn-polymyx 3.5 1 applic topical BID PRN unknown 11/26/21 02/27/23 Unknown History mg-400 unit-5,000 unit/gram top oint (Neosporin (znw-dgd-zcitn)) calcium carbonate 600 mg-vitamin 1 tab PO DAILY 02/12/22 02/27/23 02/26/23 History D3 10 mcg (400 unit) tablet (Calcium 600 + D(3)) lactobacillus combination no.4 3 3,000 mmu cells PO DAILY 1102/27/23 02/26/23 History billion cell capsule (Probiotic) lidocaine 5 % topical patch 1 patch topical DAILY 02/12/22 02/27/23 01/16/23 History meloxicam 7.5 mg tablet 7.5 mg PO DAILY 02/12/22 02/27/23 02/26/23 History menthol 1 applic topical BID PRN JOINT PAIN 02/12/22 02/27/23 02/15/23 History olopatadine 0.2 % eye drops 1 drp ophthalmic (eye) DAILY PRN 02/12/22 02/27/23 Unknown History Dry Eye(S) albuterol sulfate 90 mcg/actuation 2 inh inhalation Q4H PRN shortness 06/25/22 02/27/23 Unknown Rx aerosol inhaler of breath or wheezing #6.7 grams spironolactone 25 mg tablet 12.5 mg PO DAILY 07/05/22 02/27/23 02/26/23 History aripiprazole 10 mg tablet 10 mg PO DAILY 01/17/23 02/27/23 02/26/23 History ciclopirox 0.77 % topical cream 1 applic topical BID PRN Rash 01/17/23 02/27/23 Unknown History diclofenac sodium 1 % topical gel 4.5 inch topical QID PRN Pain 01/17/23 02/27/23 Unknown History furosemide 20 mg tablet See Rx Instructions .Route .COMPLEX 01/17/23 02/27/23 02/26/23 History pimecrolimus 1 % topical cream 1 applic topical BID 01/17/23 02/27/23 02/26/23 History (Eliayan) norethindrone (contraceptive) 0.35 0.35 mg PO DAILY #84 tabs 01/25/23 02/27/23 02/26/23 Rx mg tablet nystatin 100,000 unit/gram topical 1 applic topical BID #60 grams 01/26/23 02/27/23 02/26/23 Rx powder zinc oxide 22 % topical cream 1 applic topical BID #113 grams 02/14/23 02/27/23 02/26/23 Rx camphor-methyl salicylate-menthol See Rx Instructions .Route .COMPLEX 02/27/23 02/27/23 Unknown History topical patch cyclobenzaprine 10 mg tablet 10 mg PO TID PRN Muscle Spasm 02/27/23 02/27/23 Unknown History eucalyptus-menthol oral mucosal See Rx Instructions .Route .COMPLEX 02/27/23 02/27/23 Unknown History lozenge hydroxyzine HCl 25 mg tablet 25 mg PO DAILY PRN Anxiety 02/27/23 02/27/23 Unknown History losartan 25 mg tablet 25 mg PO DAILY 02/27/23 02/27/23 02/26/23 History oxybutynin chloride 5 mg 5 mg PO DAILY 02/27/23 02/27/23 02/26/23 History tablet,extended release 24 hr Allergies Allergy/AdvReac Type Severity Reaction Status Date / Time acetaminophen [From Tylenol] Allergy ALGY-Rash Verified 02/27/23 08:36 aspirin Allergy ALGY-Rash Verified 02/27/23 08:36 azithromycin Allergy ALGY-Rash Verified 02/27/23 08:36 haloperidol [From Haldol] Allergy ADR-Seizure Verified 02/27/23 08:36 tramadol Allergy ADR-Seizure Verified 02/27/23 08:36 ibuprofen AdvReac Mild Unknown Verified 02/27/23 08:36 bee strings Allergy Anaphylaxis Uncoded 01/25/23 15:05 Current Medications Generic Name Dose Route Start Last Admin Trade Name Freq PRN Reason Stop Dose Admin Albuterol/Ipratropium 3 ml 02/27/23 20:00 02/28/23 07:57 Ipratropium-Albuterol 3 Ml Neb INHALATION 3 ml Q6H.RESP LEONEL Administration Apixaban 5 mg 02/27/23 20:00 02/28/23 07:58 Apixaban 5 Mg Tablet PO 5 mg BID@08,20 LEONEL Administration Aripiprazole 10 mg 02/28/23 09:00 02/28/23 07:58 Aripiprazole 10 Mg Tablet PO 10 mg DAILY LEONEL Administration Furosemide 40 mg 02/27/23 17:20 02/28/23 03:35 Furosemide 10 Mg/Ml Sdv 4ml IVP 40 mg BID@0400,1600 LEONEL Administration Levofloxacin/Dextrose 750 mg in 150 mls @ 100 mls/hr 02/27/23 18:00 02/27/23 19:50 Levaquin-D5w IV Infused Q24H LEONEL Infusion Protocol Dexmedetomidine/Sodium Chloride 400 mcg in 100 mls @ 0 mls/hr 02/27/23 22:15 02/28/23 06:44 Precedex IV 0.3 mcg/kg/hr .Q0M LEONEL 16.6 mls/hr Titration Protocol Per Protocol Levothyroxine Sodium 100 mcg 02/28/23 08:00 02/28/23 07:58 Levothyroxine 100 Mcg Tablet PO 100 mcg DAILY@08 LEONEL Administration Lidocaine 1 patch 02/28/23 09:00 02/28/23 08:10 Lidocaine 5% Patch TOPICAL 1 patch DAILY LEONEL Administration Non-Formulary Medication 0.35 mg 02/28/23 09:00 02/28/23 07:50 Norethindrone (Contraceptive) PO Not Given DAILY LEONEL Nystatin 1 applic 02/27/23 18:00 02/28/23 08:00 Nystatin Powder 15 Gm Btl TOPICAL 1 applic BID LEONEL Administration Oxcarbazepine 300 mg 02/27/23 20:00 02/28/23 07:58 Oxcarbazepine 300 Mg Tablet PO 300 mg BID@08,20 LEONEL Administration Oxycodone HCl 5 mg 02/27/23 22:16 02/28/23 03:10 Oxycodone 5 Mg Ir Tab/Cap PO 5 mg Q4H PRN Administration MODERATE PAIN Pantoprazole Sodium 40 mg 02/27/23 17:20 02/27/23 17:50 Pantoprazole 40 Mg Sdv IVP 40 mg Q24H LEONEL Administration Zinc Oxide 1 applic 02/28/23 09:00 02/28/23 08:01 Zinc Oxide Oint 30 Gm TOPICAL Not Given BID LEONEL PFSH Acute PFSH: Medical History Benign essential HTN Bipolar disorder Body mass index (BMI) greater than 70 in adult Chronic hypoxic respiratory failure Congestive heart failure Echo 06/2021: LV systolic function normal with EF of 55 to 60%, mild pulmonary hypertension with RVSP 35-40mmHg Depression Elevated brain natriuretic peptide (BNP) level Fibromyalgia syndrome Hypothyroidism [facility]--Dr Haider Morbid obesity BMI 80+; has some features of pradar willi syndrome, but states she was tested at [facility] and does not carry formal diagnosis Nocturnal enuresis Nocturnal hypoxemia Nocturnal polyuria Obesity hypoventilation syndrome Osteoarthritis Psychiatric disorder Sleep apnea Sleep study 07/2021 severe sleep apnea with hypoxemia. Sleep titration recommended. Non-invasive ventilator recommended. As of 01/2023 has not had titration study. Suspected pulmonary embolism diagnosis in early 2021 for which chronic anticoagulation initiated Surgical History H/O laparoscopy (~2010) treatment of ovarian cysts; performed in [place] History of cholecystectomy 2017-lap History of colonoscopy with polypectomy 2018 History of dental surgery History of placement of ear tubes History of tonsillectomy and adenoidectomy Family History Grandmother Breast cancer Maternal--dx age unknown Diabetes Maternal Hypertension Maternal Mother Breast cancer dx age 40's ; unknown if hormone receptive Thyroid disease Grandfather No problems noted. Sister Thyroid disease Denies family history of Colon cancer Ovarian cancer Hypercholesteremia Uterine cancer Stroke Vitals/I&O/Wt Last Vital Signs Temp 98.2 F 02/28/23 08:14 Pulse 70 02/28/23 08:10 Resp 28 H 02/28/23 07:59 BP 137/92 02/28/23 07:55 Pulse Ox 89 L 02/28/23 08:10 O2 Del Method BiPAP 02/28/23 08:10 O2 Flow Rate 6 02/27/23 17:25 FiO2 50 02/28/23 08:10 02/27/23 02/28/23 02/28/23 22:59 06:59 14:59 Intake Total 150 / 150 85.232 / 235.232 240 / 240 Output Total 2150 / 2150 1600 / 3750 Balance -2000 / -2000 -1514.768 / -3514.768 240 / 240 Weight last 48 hrs Weight 537 lb 2 oz Weight 537 lb 2 oz Weight 537 lb 2 oz Weight 488 lb Weight 488 lb Physical Exam Narrative: GENERAL: Patient is alert and oriented ?3 and in no acute distress. The following is a focused right lower extremity exam. VASCULAR: Dorsalis pedis palpable. Posterior tibial artery 3 palpable. Capillary refill time less than 3 seconds to the distal hallux bilaterally. Calf is supple and nontender proximally and distally. Edema to the bilateral lower extremity. NEUROLOGICAL: Protective sensation intact to light touch. DERMATOLOGICAL: Mild ecchymosis right lateral ankle, no fracture blisters, no lacerations or abrasions to the lower extremities. MUSCULOSKELETAL: Tenderness to palpation at right distal fibula. No pain to palpation right medial malleolus. No pain to palpation at the base of the right fifth metatarsal. No pain at the right Lisfranc complex. No pain to palpation at the right proximal fibula. Able to wiggle toes on command. Able to nadir siflex and plantarflex right ankle smooth without crepitus. Data 02/28/23 03:15 02/28/23 03:15 Micro: Microbiology 02/27/23 09:33 Blood Culture - Preliminary Blood NEGATIVE TO DATE 02/27/23 09:27 Blood Culture - Preliminary Blood NEGATIVE TO DATE A&P Assessment and plan (1) Closed fracture of right distal fibula: Plan Right distal fibular fracture, post reduction x-ray of the right ankle 3 views shows nondisplaced fracture of the right distal fibula, [place]. Right ankle mortise is congruent. No involvement of the medial malleolus. Current alignment of her right distal fibular fracture can be appropriately treated with immobilization, nonweightbearing and conservative management and forward for likely 6 weeks of being immobilized to the right lower extremity. Will require serial x-rays every 2 weeks. Any change such as displacement or angulation of the fracture site or ankle mortise may necessitate surgery down the road. Patient was placed in a short leg cast with ankle joint in neutral position in the ICU at today's visit. Will follow-up outpatient in podiatry clinic for continued fracture care in 2 weeks. Planning on current casting in place for 2 weeks. Coding Level of Care Code Acute Code for Chg Fwd Diagnoses Closed fracture of right distal fibula S82.831A Comment CPT code 47678 for short leg cast.
[2023-02-28] MEDS: dexmedeTOMIDine 0.9 % NaCL 400 MCG/100 ML PREMIX 22.14 MCG IV (11:00)
[2023-02-28] MEDS: acetaZOLAMIDE 250 mg Tablet 500 MG PO (11:55)
[2023-02-28 12:01] LABS: Thyroid Stimulating Hormone 4.41 uIU/mL (0.27-4.20)
[2023-02-28 12:22] LABS: Iron 63 ug/dL (37-145); Percent Saturation 20.1 % (20-50); Total Iron Binding Capacity 313 mcg/dl; Unsaturated Iron Binding 250 ug/dL (112-347)
[2023-02-28] MEDS: piperacillin-tazobactam 3.375 GM in sodium chloride 0.9% (plus) 50 ML IV ×2 (12:23→20:50)
[2023-02-28 12:37] LABS: Procalcitonin 0.08 ng/mL (0-0.5); Vitamin B12 201 pg/mL (232-1245)
--- NOTE | 2023-02-28 17:39 | PM.PN ---
Subjective Subjective: Hospital course, labs appreciated. Today morning seen in ICU on oxime mask. Prior to that patient was on BiPAP which she was not able to tolerate. Overnight patient was started on Precedex drip because of anxiety. Patient states she currently is on 6 L of oxygen supplementation at intermediate. She is supposed to be on CPAP but not able to use as she has not been able to finish her sleep study as an outpatient. Denies any nausea, vomiting, headache. States pain is well-controlled. States usually takes she takes Benadryl for pain as she is allergic to multiple pain medications. Vitals/I&O/Wt Last Vital Signs Temp 98.1 F 02/28/23 12:18 Pulse 72 02/28/23 16:25 Resp 26 H 02/28/23 13:15 BP 157/78 02/28/23 14:55 Pulse Ox 94 02/28/23 16:25 O2 Del Method High Flow Nasal Cannula 02/28/23 13:15 O2 Flow Rate 15 02/28/23 13:15 FiO2 50 02/28/23 08:10 02/28/23 02/28/23 02/28/23 06:59 14:59 22:59 Intake Total 85.232 / 235.232 349.198 / 349.198 50 / 399.198 Output Total 1600 / 3750 Balance -1514.768 / -3514.768 349.198 / 349.198 50 / 399.198 Weight last 48 hrs Weight 240.574 kg Weight 243.636 kg Weight 243.636 kg Weight 243.636 kg Weight 221.353 kg Weight 221.353 kg Physical Exam Const: COMMON NORMALS: patient oriented x3 and alert GENERAL APPEARANCE: cooperative NUTRITIONAL APPEARANCE: obese morbidly obese ORIENTATION/CONSCIOUSNESS: Yes awake OTHER: She is awake and alert, conversant, somewhat impulsive but appears to have insight, provides history. HENMT: COMMON NORMALS: oropharynx normal Neck/C-Spine: COMMON NORMALS: no JVD Resp: COMMON NORMALS: normal respiratory effort and clear to auscultation bilaterally AUSCULTATION: clear to auscultation bilaterally OTHER: BiPAP on Cardio: COMMON NORMALS: no JVD, regular rhythm, S1 normal heart sound present, S2 normal heart sound present and No murmurs present (Cardio) RHYTHM: regular rhythm HEART SOUNDS: S1 normal heart sound present and S2 normal heart sound present GI: COMMON NORMALS: Normal to inspection, nondistended, normoactive bowel sounds present, Soft to palpation and non-tender PALPATION: Yes Soft to palpation Extremity: COMMON NORMALS: no joint enlargement and no pedal edema OTHER: Right ankle splint Neuro: COMMON NORMALS: patient oriented x3 and moves all extremities SENSORIUM/ORIENTATION: Yes alert OTHER: Some degree of asterixis. Skin: COMMON NORMALS: no rashes or lesions noted GENERAL SKIN EXAM: no rashes or lesions noted Data 02/28/23 03:15 02/28/23 03:15 Micro: Microbiology 02/27/23 09:33 Blood Culture - Preliminary Blood NEGATIVE TO DATE 02/27/23 09:27 Blood Culture - Preliminary Blood NEGATIVE TO DATE A&P Assessment and plan (1) Respiratory failure: Hypoxic and hypercapnic respiratory failure. Most likely obstructive sleep apnea exacerbation in setting of possible aspiration pneumonia. Appreciate CT results. Patient does have history of PE in the past. As per patient fever 6 L of oxygen supplementation as an outpatient at intermediate. Oxygen supplementation keeping saturation over 85 to 88%. Cannot rule out severe obstructive sleep apnea given body habitus. BiPAP nightly or as needed. Start patient on Pulmicort twice daily, DuoNebs every 6 hours. Patient is developing contraction alkalosis. Change Lasix to 40 mg IV daily. Start on Diamox 500 mg oral daily. Repeat CMP daily for now. Strict improper charting, daily weights. Fluid restriction up to 2 L. Appreciate ABG today. (2) D-dimer, elevated: Continue home dose of Eliquis. History of possible PE in the past. (3) Fibula fracture: Secondary to fall while going to the ER. Appreciate podiatry recommendations. Plan for medical management for now. Nonweightbearing. Placed in cast. Needs biweekly x-rays. Patient is allergic to multiple and all pain medications. She was given a trial of narcotics after which she became acutely confused and hypotensive. Continue with fentanyl patch. For now tolerating well. Hold off on using Benadryl for pain. (4) Acute encephalopathy: With asterixis in ER, may be secondary to respiratory acidosis, otherwise he is on a number of medications that could contribute, continue low-dose aripiprazole for now, hold bupropion, cyclobenzaprine, gabapentin, sertraline, reassess condition, consider cautious resumption. Plan Pressure ulcer: Reported having pressure ulcer. Reportedly exacerbated as she has been refusing to shower. Dressing. Reposition as best as possible. Moisture injury: Zinc oxide, although per discussion with pharmacist we are out of it tonight, should be able to obtain tomorrow. Hypothyroidism, continue levothyroxine Bipolar disorder, History of suspected PE on Eliquis Other medical problems Attestations Medical Necessity Statement*: Requires further hospitalization for management of hypoxic and hypercapnic respiratory failure in setting of morbid obesity, obstructive sleep apnea, fibula fracture. Diagnoses Respiratory failure J96.90 D-dimer, elevated R79.89 Fibula fracture S82.409A Acute encephalopathy G93.40
[2023-02-28] MEDS: cyanocobalamin 1,000 mcg/mL SDV 1000 MCG IM (18:16)
[2023-02-28] MEDS: pantoprazole 40 mg SDV IVP (18:16)
[2023-02-28] MEDS: budesonide 0.5 mg/2 mL Neb INHALATION (19:54)
[2023-02-28 23:00] LABS: Free T4 Free Thyroxine 0.64 ng/dL (0.82-1.77); T3 Free 1.8 PG/ML (2.0-4.4)
[2023-03-01] VITALS (89 sets, daily range): BP systolic 155–170; BP diastolic 72–80; PULSE 76–89; RESP 16–18; TEMP 36.7–36.8; O2SAT 88–98
[2023-03-01] MEDS: ipratropium-albuterol 3 mL Neb INHALATION ×2 (01:46→13:36)
[2023-03-01] MEDS: zolpidem 5 mg Tablet PO (02:09)
[2023-03-01] MEDS: piperacillin-tazobactam 3.375 GM in sodium chloride 0.9% (plus) 50 ML IV (04:00)
[2023-03-01] MEDS: budesonide 0.5 mg/2 mL Neb INHALATION (08:18)
[2023-03-01 08:28] LABS: Alanine Aminotransferase 10 U/L (0-33); Albumin Level 3.2 g/dL (3.5-5.2); Alkaline Phosphatase 143 U/L (35-105); Aspartate Amino Transferase 19 U/L (0-32); Blood Urea Nitrogen 13 mg/dL (6-20); Calcium 8.7 mg/dL (8.5-10.5); Carbon Dioxide 35 mmol/L (22-29); Chloride 98 mmol/L (98-107); Folate Level 7.2 ng/mL (4.8-37.3); Globulin 3.1 g/dL (1.3-4.6); Glomerular Filtration Rate 93.6 mL/min (90-130); Glucose 113 mg/dL (65-115); Osmolality Calculated 295 mOsm/kg (285-295); Sodium 142 mmol/L (136-145); Total Bilirubin 0.6 mg/dL (0.15-1.2); Total Protein 6.3 g/dL (6.6-8.7)
[2023-03-01] MEDS: apixaban 5 mg Tablet PO ×2 (09:14→21:14)
[2023-03-01] MEDS: ARIPiprazole 10 mg Tablet PO (09:14)
[2023-03-01] MEDS: cyanocobalamin 1,000 mcg/mL SDV 1000 MCG IM (09:14)
[2023-03-01] MEDS: acetaZOLAMIDE 250 mg Tablet 500 MG PO (09:14)
[2023-03-01] MEDS: OXcarbazepine 300 mg Tablet PO ×2 (09:14→21:14)
[2023-03-01] MEDS: levothyroxine 100 mcg Tablet PO (09:14)
[2023-03-01] MEDS: nystatin powder 15 gm Btl 1 APPLIC TOPICAL (09:15)
[2023-03-01] MEDS: FUROsemide 10 mg/mL SDV 4mL 40 MG IVP (09:15)
[2023-03-01 09:18] LABS: Anion Gap 13.1 (5-19); Potassium 4.1 mmol/L (3.5-5.1)
[2023-03-01 09:19] LABS: Basophils # 0.1 10^3/uL (0.0-0.1); Basophils % 0.5 %; Eosinophils # 0.3 10^3/uL (0.0-0.8); Eosinophils % 2.8 %; Hematocrit 39.4 % (36-47); Lymphocytes # 1.4 10^3/uL (0.8-4.8); Lymphocytes % 13.9 %; Mean Corpuscular HGB Conc 27.4 g/dL (30-55); Mean Corpuscular Hemoglobin 27.4 pg (27-33); Mean Platelet Volume 11.5 fL (7.4-10.4); Monocytes # 0.7 10^3/uL (0.2-0.9); Monocytes % 7.2 %; Neutrophils % 75.3 %; Nucleated Red Blood Cells % 0 %; Platelet Count 222 10^3/cmm (157-399); Red Blood Count 3.94 10^6/uL (3.85-5.65); Red Cell Distribution Width 22.3 % (12.1-15.1)
--- NOTE | 2023-03-01 09:49 | PM.DCS ---
Discharge Providers Date of Admission: 02/27/23 11:46 Date of Discharge: March 01, 2023 Attending Provider at Admission: Dirk Vick Attending Provider at Discharge: Casa Beard MD Consults: Podiatry: Dr. Raymond Primary Care Provider: RANDY Stevens Diagnoses at Discharge Discharge Diagnosis (1) Respiratory failure: Status: Acute (2) D-dimer, elevated: Status: Acute (3) Fibula fracture: Status: Acute (4) Acute encephalopathy: Status: Acute Reason for Visit Reason for Visit: SOB Brief History: History as per HPI: 38-year-old lady with morbid obesity BMI 83.8, history of congestive heart failure, obstructive sleep apnea with recommended titration, home oxygen up to 6 L, though has not had the assessment, OHS, hypothyroidism, bipolar disorder, history of suspected PE on Eliquis, other medical problems presented due to progressive worsening dyspnea, productive cough, [facility] cot on arrival, on presentation hypoxic, ABG with respiratory acidosis, hypoxia on 100% FiO2, on 15 L nonrebreather and transported. Chest x-ray with increased bilateral pulmonary edema and/or pneumonitis with increased pulmonary vascular congestion. Unchanged moderate cardiomegaly. Right ankle x-ray with distal right fibular fracture. Hospital Course Hospital Course Patient was admitted to the hospital further evaluation and management of hypoxic and hypercapnic respiratory failure along with right fibular fracture. On admission she received pain medication after which she became extremely lethargic and she was placed on BiPAP and admitted to ICU. Patient responded well to the treatment and has been on her baseline oxygen supplementation of up to 6 L for last 24 hours. Patient was seen by podiatry during hospitalization who recommended patient to be in an immobilizer for next 6 weeks with biweekly ankle x-rays for monitoring of reduction with nonweightbearing features. Patient underwent CT chest on admission which was consistent with right-sided pneumonia. She was started on broad-spectrum antibiotics. She has been discharged back to long-term on oral Augmentin and Levaquin for next 5 days, baseline diuretic along with Diamox every other day for next 14 days. During hospitalization she was found to have abnormal thyroid function test for which her home dose of levothyroxine was adjusted. She is to have repeat thyroid panel in next 1 month. Patient should have an outpatient sleep study at the earliest which has been ordered because of high concerns for obstructive sleep apnea versus obesity hypoventilation syndrome. Because of concerns for OHS her home antipsychotic medications have been adjusted to reduce central hypoventilation. Physical Exam Const: COMMON NORMALS: patient oriented x3 and alert GENERAL APPEARANCE: cooperative NUTRITIONAL APPEARANCE: obese morbidly obese ORIENTATION/CONSCIOUSNESS: Yes awake OTHER: She is awake and alert, conversant, somewhat impulsive but appears to have insight, provides history. HENMT: COMMON NORMALS: oropharynx normal Neck/C-Spine: COMMON NORMALS: no JVD Resp: COMMON NORMALS: normal respiratory effort and clear to auscultation bilaterally AUSCULTATION: clear to auscultation bilaterally OTHER: BiPAP on Cardio: COMMON NORMALS: no JVD, regular rhythm, S1 normal heart sound present, S2 normal heart sound present and No murmurs present (Cardio) RHYTHM: regular rhythm HEART SOUNDS: S1 normal heart sound present and S2 normal heart sound present GI: COMMON NORMALS: Normal to inspection, nondistended, normoactive bowel sounds present, Soft to palpation and non-tender PALPATION: Yes Soft to palpation Extremity: COMMON NORMALS: no joint enlargement and no pedal edema OTHER: Right ankle splint Neuro: COMMON NORMALS: patient oriented x3 and moves all extremities SENSORIUM/ORIENTATION: Yes alert OTHER: Some degree of asterixis. Skin: COMMON NORMALS: no rashes or lesions noted GENERAL SKIN EXAM: no rashes or lesions noted Discharge Data Studies Completed and Pending Completed Studies During Hospitalization Category Date Time Status CTA PE [CT angio chest PE protcl [id number]] Urgent Cat Scan 02/27/23 14:29 Completed XR ankle RT 2V [id number] Stat Exams 02/27/23 09:12 Completed XR ankle RT min 3V* [id number] Routine Exams 02/27/23 14:32 Completed XR chest 1V portable [id number] Stat Exams 02/27/23 08:55 Completed Pending at discharge Category Date Time Status Blood Culture Stat Lab 02/27/23 09:33 Results Complete Blood Count w/Auto AM LABS Lab 03/02/23 04:00 Ordered Comprehensive Metabolic Panel AM LABS Lab 03/02/23 04:00 Ordered Comprehensive Metabolic Panel AM LABS Lab 03/03/23 04:00 Ordered Lipid Profile w/VLDL Routine Lab 03/01/23 04:35 Received MAG [Magnesium] AM LABS Lab 03/01/23 04:35 Received MAG [Magnesium] AM LABS Lab 03/02/23 04:00 Ordered MAG [Magnesium] AM LABS Lab 03/03/23 04:00 Ordered PHOS [Phosphorus] AM LABS Lab 03/01/23 04:35 Received PHOS [Phosphorus] AM LABS Lab 03/02/23 04:00 Ordered PHOS [Phosphorus] AM LABS Lab 03/03/23 04:00 Ordered Sputum Culture and Gram Stain Routine Lab 02/27/23 17:20 Uncollected CV. echo complete* [id number] Routine Ultrasound 02/28/23 06:00 Taken Radiology Impressions Chest X-Ray 02/27/23 08:55 IMPRESSION: 1. Increased bilateral pulmonary edema and/or pneumonitis with increased pulmonary vascular congestion. 2. Unchanged moderate cardiomegaly. Chest CTA 02/27/23 14:29 IMPRESSION: 1. Bilateral lower lobe, right middle lobe, and right upper lobe airspace disease suspicious for multifocal pneumonia. Recommend clinical correlation. Recommend followup chest imaging to insure resolution of these findings. 2. Evaluation of peripheral pulmonary arteries is limited secondary to the phase of contrast enhancement. No filling defects in the central pulmonary arteries to suggest a large pulmonary embolism. 3. Mild enlargement of the visualized spleen. 4. Interval development of nonspecific right axillary, mediastinal, and bilateral hilar, lymphadenopathy. This could be reactive in nature. However, followup imaging is recommended to ensure stability/resolution. 5. Incidental/nonacute findings are listed in the report. Ankle X-Ray 02/27/23 14:32 IMPRESSION: Successful closed reduction of distal right fibular fracture. Laboratory Results WBC 9.70 10^3/uL (3.29-11.43) 03/01/23 04:35 RBC 3.94 10^6/uL (3.85-5.65) 03/01/23 04:35 Hgb 10.80 g/dL (11.27-16.99) L 03/01/23 04:35 Hct 39.4 % (36-47) 03/01/23 04:35 MCV 100.0 fl (85-98) H 03/01/23 04:35 MCH 27.4 pg (27-33) 03/01/23 04:35 MCHC 27.4 g/dL (30-55) L 03/01/23 04:35 RDW 22.3 % (12.1-15.1) H 03/01/23 04:35 Plt Count 222 10^3/cmm (157-399) 03/01/23 04:35 MPV 11.5 fL (7.4-10.4) H 03/01/23 04:35 Neut % (Auto) 75.3 % 03/01/23 04:35 Lymph % (Auto) 13.9 % 03/01/23 04:35 [place] % (Auto) 7.2 % 03/01/23 04:35 Eos % (Auto) 2.8 % 03/01/23 04:35 Baso % (Auto) 0.5 % 03/01/23 04:35 Neut # (Auto) 7.30 10^3/uL (1.8-7.7) 03/01/23 04:35 Lymph # (Auto) 1.4 10^3/uL (0.8-4.8) 03/01/23 04:35 [place] # (Auto) 0.7 10^3/uL (0.2-0.9) 03/01/23 04:35 Eos # (Auto) 0.3 10^3/uL (0.0-0.8) 03/01/23 04:35 Baso # (Auto) 0.1 10^3/uL (0.0-0.1) 03/01/23 04:35 Nucleated RBC % (auto) 0 % 03/01/23 04:35 Nucleated RBCs # 0.0 /100WBC 03/01/23 04:35 PT 16.40 SECONDS (12.1-14.9) H 02/27/23 09:27 INR 1.28 (0.8-1.2) H 02/27/23 09:27 D-Dimer 2.46 ug/mLFEU (0-0.59) H 02/27/23 09:27 Specimen Type Arterial 02/27/23 09:27 Sample Site Radial, right 02/27/23 09:27 ABG pH 7.22 (7.35-7.45) L 02/27/23 09:27 ABG pCO2 113.0 mmHg (35-45) H* 02/27/23 09:27 ABG pO2 75.9 mmHg (80.0-100.0) L 02/27/23 09:27 ABG PO2/FiO2 Ratio 0 02/27/23 09:27 ABG HCO3 46.2 mmol/L (22-26) H 02/27/23 09:27 ABG Base Excess 14.5 mmol/L (-2.0-2.0) H 02/27/23 09:27 Tyrese Test Pos 02/27/23 09:27 Hematocrit 33.6 % (37-47) L 02/27/23 09:27 Hgb O2 Saturation 90.7 % (95-100) L 02/27/23 09:27 Carboxyhemoglobin 3.3 %THgb (0.4-20.1) 02/27/23 09: Methemoglobin 0.5 % (0.4-1.5) 02/27/23 09: Total Hemoglobin 11.0 g/dL (12-16) L 02/27/23 09:27 O2 Delivery Device Nrb 02/27/23 09: O2 Liters/Min 15.0 % 02/27/23 09: FiO2 100.0 % 02/27/23 09:27 Sales Effectiveness Manager ID [place] 02/27/23 09:27 Sodium 142 mmol/L (136-145) 03/01/23 04:35 Potassium 4.1 mmol/L (3.5-5.1) 03/01/23 04:35 Chloride 98 mmol/L (98-107) 03/01/23 04:35 Carbon Dioxide 35 mmol/L (22-29) H 03/01/23 04:35 Anion Gap 13.1 (5-19) 03/01/23 04:35 BUN 13 mg/dL (6-20) 03/01/23 04:35 Creatinine 0.7 mg/dL (0.5-0.9) 03/01/23 04:35 GFR Calculation 93.6 mL/min (90-130) 03/01/23 04:35 Glucose 113 mg/dL (65-115) 03/01/23 04:35 Calculated Osmolality 295 mOsm/kg (285-295) 03/01/23 04:35 Lactic Acid 0.8 mmol/L (0.5-2.2) 02/27/23 09:27 Calcium 8.7 mg/dL (8.5-10.5) 03/01/23 04:35 Iron 63 ug/dL (37-145) 02/28/23 03:15 TIBC 313 mcg/dl 02/28/23 03:15 % Saturation 20.1 % (20-50) 02/28/23 03:15 Unsat Iron Binding 250 ug/dL (112-347) 02/28/23 03:15 Total Bilirubin 0.6 mg/dL (0.15-1.2) 03/01/23 04:35 AST 19 U/L (0-32) 03/01/23 04:35 ALT 10 U/L (0-33) 03/01/23 04:35 Alkaline Phosphatase 143 U/L (35-105) H 03/01/23 04:35 NT-Pro-B Natriuret Pep 1296 pg/mL (0-125) H 02/27/23 09:27 Total Protein 6.3 g/dL (6.6-8.7) L 03/01/23 04:35 Albumin 3.2 g/dL (3.5-5.2) L 03/01/23 04:35 Globulin 3.1 g/dL (1.3-4.6) 03/01/23 04:35 Vitamin B12 201 pg/mL (232-1245) L 02/28/23 03:15 Folate 7.2 ng/mL (4.8-37.3) 03/01/23 04:35 Procalcitonin 0.08 ng/mL (0-0.5) 02/28/23 03:15 TSH 4.41 uIU/mL (0.27-4.20) H 02/28/23 03:15 Free T4 0.64 ng/dL (0.82-1.77) L 02/28/23 03:15 Free T3 1.8 PG/ML (2.0-4.4) L 02/28/23 03:15 Urine Color Yellow (Yellow) 02/27/23 16:16 Urine Appearance Clear (CLEAR) 02/27/23 16:16 Urine pH 5 (5-7) 02/27/23 16:16 Ur Specific [place] 1.020 (1.005-1.030) 02/27/23 16:16 Urine Protein 1+ (Negative) H 02/27/23 16:16 Urine Glucose (UA) Norm (Normal) 02/27/23 16:16 Urine Ketones 1+ (Negative) H 02/27/23 16:16 Urine Blood Neg (Negative) 02/27/23 16:16 Urine Nitrate Negative (Negative) 02/27/23 16:16 Urine Bilirubin 1+ (Negative) H 02/27/23 16:16 Urine Urobilinogen 1 mg/dL (Negative) H 02/27/23 16:16 Ur Leukocyte Esterase Trace (Negative) H 02/27/23 16:16 Urine RBC 0-4 /hpf (0-2) H 02/27/23 16:16 Urine WBC 0-4 /hpf (0-5) H 02/27/23 16:16 Ur Squamous Epith Cells 0-4 /hpf (0-5) H 02/27/23 16:16 Amorphous Sediment 1+ /hpf 02/27/23 16:16 Urine Bacteria Trace /hpf (NONE) 02/27/23 16:16 Urine Mucus 2+ /hpf 02/27/23 16:16 Nasal Influ A H1 2009 PCR Not detected (NOT DETECT) 02/27/23 18:45 Adenovirus (PCR) Not detected (NOT DETECT) 02/27/23 18:45 C. pneumoniae DNA (PCR) Not detected (NOT DETECT) 02/27/23 18:45 Coronavirus 229E (PCR) Not detected (NOT DETECT) 02/27/23 18:45 Human Metapneumovir PCR Not detected (NOT DETECT) 02/27/23 18:45 Influenza A (H1) PCR Not detected (NOT DETECT) 02/27/23 18:45 Influenza A (H3) PCR Not detected (NOT DETECT) 02/27/23 18:45 Influenza Type A (PCR) Not detected (NOT DETECT) 02/27/23 18:45 Influenza Type B (PCR) Not detected (NOT DETECT) 02/27/23 18:45 M. pneumoniae (PCR) Not detected (NOT DETECT) 02/27/23 18:45 Parainfluenza 1 (PCR) Not detected (NOT DETECT) 02/27/23 18:45 Parainfluenza 2 (PCR) Not detected (NOT DETECT) 02/27/23 18:45 Parainfluenza 3 (PCR) Not detected (NOT DETECT) 02/27/23 18:45 Parainfluenza 4 (PCR) Not detected (NOT DETECT) 02/27/23 18:45 RSV Type A (PCR) Not detected (NOT DETECT) 02/27/23 18:45 RSV Type B (PCR) Not detected (NOT DETECT) 02/27/23 18:45 Entero/Rhino (PCR) Not detected (NOT DETECT) 02/27/23 18:45 SARS-CoV-2 (PCR) Not detected (NOT DETECT) 02/27/23 18:45 SARS-CoV-2 Ag (Rapid) negative (Negative) 02/27/23 09:14 Vitals Last Vital Signs Temp 98.3 F 03/01/23 00:00 Pulse 88 03/01/23 06:25 Resp 18 03/01/23 01:47 BP 155/72 03/01/23 05:00 Pulse Ox 91 03/01/23 09:00 O2 Del Method High Flow Nasal Cannula 03/01/23 01:47 O2 Flow Rate 12 03/01/23 01:47 FiO2 50 02/28/23 08:10 Discharge Plan Discharge Patient Disposition: Xfer Other Condition: Stable Prescriptions: New acetazolamide 250 mg Tablet 250 mg PO EVERY OTHER DAY Qty: 14 0RF cyanocobalamin (vitamin B-12) 1,000 mcg tablet 1,000 mcg PO DAILY Qty: 30 0RF amoxicillin-pot clavulanate 875-125 mg tablet 1 tab PO Q12H Qty: 10 0RF levofloxacin 750 mg tablet 750 mg PO Q24H 5 Days Qty: 5 0RF levothyroxine 175 mcg capsule 175 mcg PO DAILY Qty: 30 0RF Continued Eucerin Cream 1 applic topical BID PRN (Reason: unknown) norethindrone (contraceptive) 0.35 mg tablet 0.35 mg PO DAILY Qty: 84 3RF nystatin 100,000 unit/gram powder 1 applic topical BID Qty: 60 6RF diphenhydramine HCl [Banophen] 25 mg Capsule 25 mg PO Q6H PRN (Reason: Allergy Symptoms) loperamide 2 mg Capsule 2 mg PO Q8H PRN (Reason: Diarrhea) oxcarbazepine 300 mg Tablet 300 mg PO BID@08,20 dicyclomine 10 mg Capsule 10 mg PO TID PRN (Reason: Abdominal Discomfort) cetirizine 10 mg Tablet 10 mg PO DAILY@08 famotidine 20 mg Tablet 20 mg PO DAILY@08 hydroxyzine HCl 25 mg Tablet 25 mg PO BEDTIME@20 PRN (Reason: Sleep) fluticasone propionate 50 mcg/actuation [place],Suspension 1 spray INTRANASAL DAILY@14 bupropion HCl 300 mg Tablet Extended Release 24 Hr 300 mg PO DAILY@08 potassium chloride 20 mEq Tablet Extended Release 20 meq PO DAILY@08 ergocalciferol (vitamin D2) [Vitamin D2] 1,250 mcg (50,000 unit) capsule 50,000 unit PO Q7D Rx Instructions: on TUESDAY Eliquis 5 mg tablet 5 mg PO BID@08,20 furosemide 40 mg tablet 40 mg PO DAILY@08 Neosporin (lge-crb-teibk) 3.5mg-400 unit- 5,000 unit/gram Ointment 1 applic TOPICAL BID PRN (Reason: unknown) epinephrine [EpiPen 2-Norm] 0.3 mg/0.3 mL Auto-Injector 0.3 mg IM Q4H PRN (Reason: Allergic Reaction) lidocaine 5 % Adhesive Patch,Medicated 1 patch TOPICAL DAILY Rx Instructions: leave on most painful area for up to 12 hrs menthol Gel 1 applic TOPICAL BID PRN (Reason: JOINT PAIN) calcium carbonate-vitamin D3 [Calcium 600 + D(3)] 600 mg-10 mcg (400 unit) Tablet 1 tab PO DAILY olopatadine 0.2 % drops 1 drp ophthalmic (eye) DAILY PRN (Reason: Dry Eye(S)) Probiotic 3 billion cell Capsule 3,000 mmu cells PO DAILY Rx Instructions: administer with a meal cyclobenzaprine 10 mg tablet 10 mg PO TID PRN (Reason: Muscle Spasm) oxybutynin chloride 5 mg tablet extended release 24hr 5 mg PO DAILY hydroxyzine HCl 25 mg Tablet 25 mg PO DAILY PRN (Reason: Anxiety) [place] Cough Drops Lozenge See Rx Instructions .ROUTE .COMPLEX Rx Instructions: DISSOLVE 1 LOZENGE BY MOUTH EVERY HOUR NEEDED Salonpas Adhesive Patch,Medicated See Rx Instructions .ROUTE .COMPLEX Rx Instructions: Apply 1 patch topically and change as needed for sciatic pain. losartan 25 mg tablet 25 mg PO DAILY albuterol sulfate 90 mcg/actuation HFA aerosol inhaler 2 inh inhalation Q4H PRN (Reason: shortness of breath or wheezing) Qty: 6.7 1RF furosemide 20 mg tablet See Rx Instructions .ROUTE .COMPLEX Rx Instructions: 20 mg orally at noon pimecrolimus [Elidel] 1 % cream 1 applic TOPICAL BID Rx Instructions: APPLY IN ABDOMINAL FOLDS TWICE DAILY FOR TWO MONTHS diclofenac sodium 1 % gel 4.5 inch TOPICAL QID PRN (Reason: Pain) ciclopirox 0.77 % cream 1 applic topical BID PRN (Reason: Rash) Rx Instructions: Apply to red areas twice a day, as needed. aripiprazole 10 mg tablet 10 mg PO DAILY zinc oxide 22 % cream 1 applic topical BID Qty: 113 0RF Changed gabapentin 600 mg Tablet 300 mg PO TID@08,14,20 Qty: 30 0RF sertraline 50 mg Tablet 75 mg PO DAILY@08 Qty: 30 0RF Discontinued spironolactone 25 mg tablet 12.5 mg PO DAILY levothyroxine 100 mcg Tablet 100 mcg PO DAILY@08 meloxicam 7.5 mg Tablet 7.5 mg PO DAILY Discharge Orders: Discharge Order (Routine); Ordered 03/01/23 Ordered By: Casa Beard Other Ambulatory Orders: DME: Wheelchair (Order) Location: None Selected Ordered By: Casa Beard XR ankle RT min 3V* [id number] (Routine) Timeframe: 2 Weeks Facility: [facility] - Location: Radiology [facility] Ordered By: Casa Beard Referrals: Fern Aguilar FNP [Primary Care Provider] - 03/11/23 2:40 pm Manny Raymond DPM [Physician] - 03/14/23 9:00 am Discharge Diet: Usual diet Discharge Activity: Limit activity as instructed Patient Instructions: Levothyroxine (By mouth), Amoxicillin (By mouth) (Amoxicot, Amoxil, Amoxil Pediatric, Trimox), Levofloxacin (By mouth), Vitamin B Combination (By mouth) (Av-Jason FB, Av-Jason FB Forte,..., Ankle Fracture (DC), Viral Encephalitis (DC), Opioid Safety Activity Restrictions/Additional Instructions: Please recheck thyroid panel within next 1 month. Dose of levothyroxine will need to be changed as per the results. Dose of gabapentin and sertraline have been changed. Please recheck BMP when checking thyroid panel in 1 month. Patient needs an urgent sleep study for CPAP as an outpatient. Need to have a repeat x-ray done within the next [address] Raymond: Conservative management of right distal fibular fracture -Remain non-weight bearing to the right lower extremity. -Short leg cast to remain intact until follow-up visit outpatient in podiatry clinic. -Follow-up appointment with Dr. Raymond outpatient scheduled 03/14/2023 at 9:[address] Raymond in podiatry clinic should she experience any complications Discharge Attestations Time Spent in Discharge Care*: greater than 30 min Specific Discharge Activities: educating patient, discussing with pcp/other providers, discussing with telehealth case manager/social workers/dc planners, documenting/other paperwork and evaluating patient/reviewing data Status at Discharge: Cognitive status at discharge: cognitively intact, Behavioral status at discharge: cooperative, Quality Metrics Clinical Quality Measures [ No reported AMI, CVA or VTE this stay] Coding Level of Care Code 75739 Total time (in minutes) for Discharge: 60 Diagnoses Respiratory failure J96.90 D-dimer, elevated R79.89 Fibula fracture S82.409A Acute encephalopathy G93.40
[2023-03-01 10:05] LABS: Chol HDL Ratio 4.43 mg/dL (0.0-4.40); Cholesterol 133 mg/dL (0-200); HDL Cholesterol 30 mg/dL (60-100); LDL Cholesterol Calculated 74 mg/dL (50-129); Magnesium 2.2 mg/dL (1.7-2.3); Phosphorus 3.3 mg/dL (2.5-4.5); Triglycerides 144 mg/dL (0-150); VLDL Cholestrol Calculation 29 mg/dL (0-30)
--- NOTE | 2023-03-02 00:05 | PC.NURSE ---
Patient was picked up by [facility] at 0000. Patient was stable and all invasive lines were discontinued by day shift.
== END 2023-03-02 00:09 | disposition home or self-care (01) | DRG 189 ==
LOC: ER 11:50 → ICU 14:44
PROVIDERS: Admitting Provider Internal Medicine; Emergency Provider Internal Medicine; PCP Nurse Practitioner Family; Visit Provider Student in an Organized Health Care Education/Training Program
DX: J96.02 Acute respiratory failure with hypercapnia (principal); I50.33 Acute on chronic diastolic (congestive) heart failure; J69.0 Pneumonitis due to inhalation of food and vomit; E66.2 Morbid (severe) obesity with alveolar hypoventilation; Z68.45 Body mass index [BMI] 70 or greater, adult; E87.29 Other acidosis; G93.40 Encephalopathy, unspecified; J96.01 Acute respiratory failure with hypoxia; F31.9 Bipolar disorder, unspecified; I11.0 Hypertensive heart disease with heart failure; I27.20 Pulmonary hypertension, unspecified; M79.7 Fibromyalgia; E03.9 Hypothyroidism, unspecified; Z86.711 Personal history of pulmonary embolism; Z79.01 Long term (current) use of anticoagulants; S82.831A Other fracture of upper and lower end of right fibula, initial encounter for closed fracture; W04.XXXA Fall while being carried or supported by other persons, initial encounter; Y92.238 Other place in hospital as the place of occurrence of the external cause; Y93.F2 Activity, caregiving, lifting
CPT/HCPCS: 29515; 36415; 36600; 71045; 71275; 73600; 73610; 80048; 80053; 80061; 81001; 82607; 82746; 82805; 83540; 83550; 83605; 83735; 83880; 84100; 84145; 84439; 84443; 84481; 85025; 85378; 85610; 87040; 87426; 87486; 87581; 87633; 92523; 92610; 93306; 94640; 94660; 94664; 96372; 96376; 99291; C9113; J1940; J1956; J2543; J3420; J3490; J7626; Q9967

== ENCOUNTER 2023-03-09 21:19 | Emergency (ER) | payer MEDICAID, SELFPAY ==
[2023-03-09 21:22] VITALS: BP 112/74; PULSE 88; RESP 20; TEMP 36.7; O2SAT 93
--- NOTE | 2023-03-09 21:56 | ED_ITS ---
HPI - Wound/Laceration General: Chief Complaint: Wound/Laceration Stated Complaint: generalized weakness/ pressure sores Time Seen by Provider: 03/09/23 21:50 History of Present Illness: 38-year-old female comes in today for co mplaints of difficulty with ambulation due to a fibular fracture of the right lower extremity. Patient is also had increased weakness. Patient resides at an assisted living center and staff there reports that she has some breakdown on her buttocks due to poor personal care. Patient appears nontoxic. Patient is chronically on oxygen due to her obesity. Associated symptoms: Denies nausea or vomiting Review of Systems General: Reports: 10 or more systems reviewed and unremarkable except in HPI and below Card: Denies: chest pain Resp: Denies: dyspnea GI: Denies: nausea or vomiting Musc: Denies: neck pain or back pain Skin/Breast: Reports: erythema Neuro: Denies: headache(s) PFS ED PFSH: Medical History Benign essential HTN Bipolar disorder Body mass index (BMI) greater than 70 in adult Chronic hypoxic respiratory failure Congestive heart failure Echo 06/2021: LV systolic function normal with EF of 55 to 60%, mild pulmonary hypertension with RVSP 35-40mmHg Depression Elevated brain natriuretic peptide (BNP) level Fibromyalgia syndrome Hypothyroidism [facility] endocrinology--Dr Haider Morbid obesity BMI 80+; has some features of pradar willi syndrome, but states she was tested at [facility] and does not carry formal diagnosis Nocturnal enuresis Nocturnal hypoxemia Nocturnal polyuria Obesity hypoventilation syndrome Osteoarthritis Psychiatric disorder Sleep apnea Sleep study 07/2021 severe sleep apnea with hypoxemia. Sleep titration recommended. Non-invasive ventilator recommended. As of 01/2023 has not had titration study. Suspected pulmonary embolism diagnosis in early 2021 for which chronic anticoagulation initiated Surgical History H/O laparoscopy (~2010) treatment of ovarian cysts; performed in [place] History of cholecystectomy 2017-lap History of colonoscopy with polypectomy 2017 History of dental surgery History of placement of ear tubes History of tonsillectomy and adenoidectomy Family History Grandmother Breast cancer Maternal--dx age unknown Diabetes Maternal Hypertension Maternal Mother Breast cancer dx age 40's ; unknown if hormone receptive Thyroid disease Grandfather No problems noted. Sister Thyroid disease Denies family history of Colon cancer Ovarian cancer Hypercholesteremia Uterine cancer Stroke Physical Exam Const: COMMON NORMALS: alert HENMT: COMMON NORMALS: normocephalic HEAD & SCALP: normocephalic Neck/C-Spine: COMMON NORMALS: full ROM Resp: COMMON NORMALS: normal respiratory effort and clear to auscultation bilaterally AUSCULTATION: clear to auscultation bilaterally Cardio: COMMON NORMALS: regular rate and regular rhythm RATE: regular rate RHYTHM: regular rhythm GI: COMMON NORMALS: Soft to palpation and non-tender PALPATION: Yes Soft to palpation : COMMON NORMALS: Yes normal external appearance Back/Pelvis: COMMON NORMALS: thoracic and lumbar spine normal to inspection Extremity: NARRATIVE EXTREMITY EXAM: Cast right lower extremity Neuro: SENSORIUM/ORIENTATION: Yes alert Skin: NARRATIVE SKIN EXAM: Erythema to the folds of the skin. Stasis dermatitis to the left lower extremity. Unable to assess right lower extremity due to cast. Some skin shearing was noted to the right lateral thigh, abrasion was also noted to the right lateral thigh, also some areas of skin shearing was noted to the inner bilateral thighs. Course Vital Signs: Vital signs: Vital Signs Temperature 98.1 F 03/09/23 21:22 Pulse Rate 92 03/09/23 22:38 Respiratory Rate 20 H 03/09/23 21:22 Blood Pressure 115/80 03/09/23 22:38 Pulse Oximetry 93 03/09/23 22:38 Oxygen Delivery Me thod Nasal Cannula 03/09/23 22:38 Oxygen Flow Rate 6 03/09/23 22:38 MDM - Wound/Laceration Medical Decision Making 38-year-old female was brought in by EMS for concerns of erythema and redness to the buttocks. On exam patient is a morbidly obese lady with intertrigo to the folds of the skin. Nursing had rolled patient and I was able to visualize the sacrum and skin thoroughly noticing some areas of skin shearing to the thigh and lateral buttocks. Patient has extensive redness to the buttocks and thighs. No ulcerations were noted at this time. I had seen patient prior approximately 4 weeks ago for some skin changes mainly on the anterior aspects of her skin that have actually improved. Caregiver for the facility or [facility] in which the patient resides reports that patient is reluctant about moving due to a recent fracture of her right fibula. Patient does have a walking cast in place which she has been reported that she can weight-bear. Patient has difficulty with maneuvering due to her obesity also. No signs of severe illness or injury is noted at this time. I recommended that caregiver talk with her search engine optimization manager and/or manager social responsibility for patient to see if patient may be better served in a detention environment. She agreed with plan and will consult with her manager animation for further recommendations. No radiology studies performed this visit Discharge Plan Discharge Patient Disposition: Home Clinical Impression: Morbid obesity Decubitus ulcer limited to breakdown of skin (stage 2) Qualifiers: Pressure injury location: contiguous region involving back, buttock, and hip Laterality: unspecified laterality Qualified Code(s): L89.42 - Pressure ulcer of contiguous site of back, buttock and hip, stage 2 Condition: Stable Prescriptions: New zinc oxide 20 % ointment 1 applic topical 5XD PRN (Reason: skin irritation) Qty: 500 0RF No Action Eucerin Cream 1 applic topical BID PRN (Reason: unknown) norethindrone (contraceptive) 0.35 mg tablet 0.35 mg PO DAILY Qty: 84 3RF nystatin 100,000 unit/gram powder 1 applic topical BID Qty: 60 6RF diphenhydramine HCl [Banophen] 25 mg Capsule 25 mg PO Q6H PRN (Reason: Allergy Symptoms) loperamide 2 mg Capsule 2 mg PO Q8H PRN (Reason: Diarrhea) oxcarbazepine 300 mg Tablet 300 mg PO BID@08,20 dicyclomine 10 mg Capsule 10 mg PO TID PRN (Reason: Abdominal Discomfort) cetirizine 10 mg Tablet 10 mg PO DAILY@08 famotidine 20 mg Tablet 20 mg PO DAILY@08 hydroxyzine HCl 25 mg Tablet 25 mg PO BEDTIME@20 PRN (Reason: Sleep) fluticasone propionate 50 mcg/actuation [place],Suspension 1 spray INTRANASAL DAILY@14 bupropion HCl 300 mg Tablet Extended Release 24 Hr 300 mg PO DAILY@08 potassium chloride 20 mEq Tablet Extended Release 20 meq PO DAILY@08 ergocalciferol (vitamin D2) [Vitamin D2] 1,250 mcg (50,000 unit) capsule 50,000 unit PO Q7D Rx Instructions: on TUESDAY Eliquis 5 mg tablet 5 mg PO BID@08,20 furosemide 40 mg tablet 40 mg PO DAILY@08 Neosporin (oxs-mrt-iipjb) 3.5mg-400 unit- 5,000 unit/gram Ointment 1 applic TOPICAL BID PRN (Reason: unknown) epinephrine [EpiPen 2-Norm] 0.3 mg/0.3 mL Auto-Injector 0.3 mg IM Q4H PRN (Reason: Allergic Reaction) lidocaine 5 % Adhesive Patch,Medicated 1 patch TOPICAL DAILY Rx Instructions: leave on most painful area for up to 12 hrs menthol Gel 1 applic TOPICAL BID PRN (Reason: JOINT PAIN) calcium carbonate-vitamin D3 [Calcium 600 + D(3)] 600 mg-10 mcg (400 unit) Tablet 1 tab PO DAILY olopatadine 0.2 % drops 1 drp ophthalmic (eye) DAILY PRN (Reason: Dry Eye(S)) Probiotic 3 billion cell Capsule 3,000 mmu cells PO DAILY Rx Instructions: administer with a meal cyclobenzaprine 10 mg tablet 10 mg PO TID PRN (Reason: Muscle Spasm) oxybutynin chloride 5 mg tablet extended release 24hr 5 mg PO DAILY hydroxyzine HCl 25 mg Tablet 25 mg PO DAILY PRN (Reason: Anxiety) eucalyptus-menthol Lozenge See Rx Instructions .ROUTE .COMPLEX Rx Instructions: DISSOLVE 1 LOZENGE BY MOUTH EVERY HOUR NEEDED camphor-methyl salicyl-menthol Adhesive Patch,Medicated See Rx Instructions .ROUTE .COMPLEX Rx Instructions: Apply 1 patch topically and change as needed for sciatic pain. losartan 25 mg tablet 25 mg PO DAILY cyanocobalamin (vitamin B-12) 1,000 mcg tablet 1,000 mcg PO DAILY Qty: 30 0RF levothyroxine 175 mcg capsule 175 mcg PO DAILY Qty: 30 0RF amoxicillin-pot clavulanate 875-125 mg tablet 1 tab PO Q12H Qty: 10 0RF acetazolamide 250 mg Tablet 250 mg PO EVERY OTHER DAY Qty: 14 0RF gabapentin 600 mg Tablet 300 mg PO TID@08,14,20 Qty: 30 0RF sertraline 50 mg Tablet 75 mg PO DAILY@08 Qty: 30 0RF albuterol sulfate 90 mcg/actuation HFA aerosol inhaler 2 inh inhalation Q4H PRN (Reason: shortness of breath or wheezing) Qty: 6.7 1RF furosemide 20 mg tablet See Rx Instructions .ROUTE .COMPLEX Rx Instructions: 20 mg orally at noon pimecrolimus [Elidel] 1 % cream 1 applic TOPICAL BID Rx Instructions: APPLY IN ABDOMINAL FOLDS TWICE DAILY FOR TWO MONTHS diclofenac sodium 1 % gel 4.5 inch TOPICAL QID PRN (Reason: Pain) ciclopirox 0.77 % cream 1 applic topical BID PRN (Reason: Rash) Rx Instructions: Apply to red areas twice a day, as needed. aripiprazole 10 mg tablet 10 mg PO DAILY zinc oxide 22 % cream 1 applic topical BID Qty: 113 0RF Discharge Orders: Discharge ED (Routine); Ordered 03/09/23 Ordered By: Brandan Walters Referrals: Fern Aguilar FNP [Primary Care Provider] - Discharge Diet: Usual diet Discharge Activity: Increase activity as tolerated Patient Instructions: How to Prevent Pressure Injuries (ED) Activity Restrictions/Additional Instructions: Patient needs to move every 2 hours in order to avoid further skin breakdown. Patient needs to avoid sitting in stool or excrement for long periods of time. Good skin hygiene and protection of skin with barrier creams as recommended. Fo llow-up with primary care in 7 days for recheck. Patient may need to consider detention placement if inability to care for self persist. Coding Level of Care Code ED Leasing Manager for [facility] Carlos Lee
[2023-03-09 22:38] VITALS: BP 115/80; PULSE 92; O2SAT 93
[2023-03-10] VITALS: BP 129/60; PULSE 103; O2SAT 96
== END 2023-03-10 00:12 | disposition home or self-care (01) ==
PROVIDERS: Emergency Provider Nurse Practitioner Family; PCP Nurse Practitioner Family
DX: L89.42 Pressure ulcer of contiguous site of back, buttock and hip, stage 2 (principal); E66.01 Morbid (severe) obesity due to excess calories; Z68.45 Body mass index [BMI] 70 or greater, adult; Z79.01 Long term (current) use of anticoagulants; I11.0 Hypertensive heart disease with heart failure; I50.9 Heart failure, unspecified
CPT/HCPCS: 99283

== ENCOUNTER 2023-03-11 15:13 | Emergency (ER) | payer MEDICAID, SELFPAY ==
[2023-03-11 15:37] VITALS: BP 121/67; RESP 18; TEMP 36.7; O2SAT 91
--- NOTE | 2023-03-11 15:41 | ECG_ITS ---
[facility] Test Date: 2023-03-11 Pat Name: Deann Vega Department: Room: Gender: Female Service Officer: : 1985 Requested By: Kalpesh Riley Order Number: [id number] Amilcar MD: Paradise Dumont M.D. Measurements Intervals [place] Rate: 86 P: 67 TN: 161 QRS: 99 QRSD: 124 T: 15 QT: 359 QTc: 431 Interpretive Statements SINUS RHYTHM BORDERLINE RIGHT AXIS DEVIATION [QRS AXIS > 90] POSSIBLE RIGHT VENTRICULAR CONDUCTION DELAY [RSR (QR) IN V1/V2] Compared to ECG 10/10/2022 18:15:08 Incomplete right bundle-branch block no longer present Intraventricular conduction delay no longer present T-wave abnormality no longer present Electronically Signed On 03-11-2023 16:08:48 VISUAL MERCHANDISER by Paradise Dumont M.D. [id number]
--- NOTE | 2023-03-11 15:45 | ED_ITS ---
HPI - General Adult General: Chief complaint: General Medical Stated complaint: foot pain needs chcf placement/ Rehab? Time Seen by Provider: 03/11/23 15:21 Source: patient and EMS Mode of arrival: ambulatory History of Present Illness: 38-year-old female who presents from a [facility] primary care clinic via EMS. Evidently she was advised to present to the ER for chcf placement. She was recently hospitalized here. She does not have any specific complaints now other than inability to manage her own care she lives at an [facility] currently. They are concerned about a developing pressure ulcer on her buttock. She not had any fevers or chills she denies any unusual shortness of breath she does have chronic hypoxia from obesity hypoventilation syndrome. She denies chest pain. No other specific complaints. She does have candidal infections in multiple skin folds that is being managed as an outpatient. Associated symptoms: Reports rash; Deny chest pain, confusion, cough, diaphoresis, decreased appetite, dyspnea, fevers/chills, headache(s), malaise, nausea, palpitations, seizures, short of breath, syncope, vomiting or weakness Treatments prior to arrival: none Review of Systems Const: Denies: malaise or diaphoresis Card: Denies: chest pain, palpitations or syncope Resp: Denies: dyspnea GI: Denies: nausea or vomiting : Denies: dysuria, urinary frequency or urinary urgency Musc: Denies: neck pain or back pain Skin/Breast: Reports: rash Neuro: Denies: headache(s) or confusion PFSH ED PFSH: Medical History Benign essential HTN Bipolar disorder Body mass index (BMI) greater than 70 in adult Chronic hypoxic respiratory failure Congestive heart failure Echo 06/2021: LV systolic function normal with EF of 55 to 60%, mild pulmonary hypertension with RVSP 35-40mmHg Depression Elevated brain natriuretic peptide (BNP) level Fibromyalgia syndrome Hypothyroidism [facility] endocrinology--Dr Haider Morbid obesity BMI 80+; has some features of pradar willi syndrome, but states she was tested at [facility] and does not carry formal diagnosis Nocturnal enuresis Nocturnal hypoxemia Nocturnal polyuria Obesity hypoventilation syndrome Osteoarthritis Psychiatric disorder Sleep apnea Sleep study 07/2021 severe sleep apnea with hypoxemia. Sleep titration recommended. Non-invasive ventilator recommended. As of 01/2023 has not had titration study. Suspected pulmonary embolism diagnosis in early 2021 for which chronic anticoagulation initiated Surgical History H/O laparoscopy (~2010) treatment of ovarian cysts; performed in [place] History of cholecystectomy 2017-lap History of colonoscopy with polypectomy 2018 History of dental surgery History of placement of ear tubes History of tonsillectomy and adenoidectomy Family History Grandmother Breast cancer Maternal--dx age unknown Diabetes Maternal Hypertension Maternal Mother Breast cancer dx age 40's ; unknown if hormone receptive Thyroid disease Grandfather No problems noted. Sister Thyroid disease Denies family history of Colon cancer Ovarian cancer Hypercholesteremia Uterine cancer Stroke Physical Exam Const: COMMON NORMALS: no acute distress GENERAL APPEARANCE: cooperative and comfortable ORIENTATION/CONSCIOUSNESS: Yes awake, Yes oriented to person, Yes oriented to place and Yes oriented to time HENMT: COMMON NORMALS: normocephalic, atraumatic and hearing grossly normal bilaterally HEAD & SCALP: normocephalic and atraumatic Resp: COMMON NORMALS: normal respiratory effort, No retractions, No use of accessory muscles and clear to auscultation bilaterally AUSCULTATION: clear to auscultation bilaterally Cardio: COMMON NORMALS: regular rate, regular rhythm and No murmurs present (Cardio) RATE: regular rate RHYTHM: regular rhythm GI: COMMON NORMALS: Soft to palpation and No hepatosplenomegaly present AUSCULTATION: Yes normoactive bowel sounds PALPATION: Yes Soft to palpation, No Tenderness to palpation present (GI), No Guarding due to palpation present (GI) and Yes No hepatosplenomegaly present Extremity: COMMON NORMALS: normal to inspection, capillary refill normal, no clubbing, cyanosis or edema, no calf tenderness and no pedal edema Neuro: SENSORIUM/ORIENTATION: Yes oriented to person, Yes oriented to place and Yes oriented to time Skin: COMMON NORMALS: no rashes or lesions noted GENERAL SKIN EXAM: no rashes or lesions noted Course Vital Signs: Vital signs: Vital Signs Temperature 98.1 F 03/11/23 15:37 Respiratory Rate 18 03/11/23 15:37 Blood Pressure 121/67 03/11/23 15:37 Pulse Oximetry 91 03/11/23 15:37 Oxygen Delivery Me thod Nasal Cannula 03/11/23 15:37 MDM - General Adult Medical Decision Making At this time no emergent condition akathisia patient is chronically hypoxic due to her hyper ventilation from obesity. Will discharge patient from our ER. Encouraged her to follow-up with primary care doctor for assistance with placement in different level of care. Medical Records I reviewed the patient's medical records. No radiology studies performed this visit Discharge Plan Discharge Patient Disposition: Home Clinical Impression: Morbid obesity, Candidiasis, intertriginous, Chronic hypoxic respiratory failure, Obesity hypoventilation syndrome, Decubitus ulcer of buttock, stage 1 Condition: Stable Prescriptions: No Action Eucerin Cream 1 applic topical BID PRN (Reason: unknown) norethindrone (contraceptive) 0.35 mg tablet 0.35 mg PO DAILY Qty: 84 3RF nystatin 100,000 unit/gram powder 1 applic topical BID Qty: 60 6RF diphenhydramine HCl [Banophen] 25 mg Capsule 25 mg PO Q6H PRN (Reason: Allergy Symptoms) loperamide 2 mg Capsule 2 mg PO Q8H PRN (Reason: Diarrhea) oxcarbazepine 300 mg Tablet 300 mg PO BID@08,20 dicyclomine 10 mg Capsule 10 mg PO TID PRN (Reason: Abdominal Discomfort) cetirizine 10 mg Tablet 10 mg PO DAILY@08 famotidine 20 mg Tablet 20 mg PO DAILY@08 hydroxyzine HCl 25 mg Tablet 25 mg PO BEDTIME@20 PRN (Reason: Sleep) fluticasone propionate 50 mcg/actuation [place],Suspension 1 spray INTRANASAL DAILY@14 bupropion HCl 300 mg Tablet Extended Release 24 Hr 300 mg PO DAILY@08 potassium chloride 20 mEq Tablet Extended Release 20 meq PO DAILY@08 ergocalciferol (vitamin D2) [Vitamin D2] 1,250 mcg (50,000 unit) capsule 50,000 unit PO Q7D Rx Instructions: on TUESDAY Eliquis 5 mg tablet 5 mg PO BID@08,20 furosemide 40 mg tablet 40 mg PO DAILY@08 Neosporin (lmi-oem-ehliy) 3.5mg-400 unit- 5,000 unit/gram Ointment 1 applic TOPICAL BID PRN (Reason: unknown) epinephrine [EpiPen 2-Norm] 0.3 mg/0.3 mL Auto-Injector 0.3 mg IM Q4H PRN (Reason: Allergic Reaction) lidocaine 5 % Adhesive Patch,Medicated 1 patch TOPICAL DAILY Rx Instructions: leave on most painful area for up to 12 hrs menthol Gel 1 applic TOPICAL BID PRN (Reason: JOINT PAIN) calcium carbonate-vitamin D3 [Calcium 600 + D(3)] 600 mg-10 mcg (400 unit) Tablet 1 tab PO DAILY olopatadine 0.2 % drops 1 drp ophthalmic (eye) DAILY PRN (Reason: Dry Eye(S)) Probiotic 3 billion cell Capsule 3,000 mmu cells PO DAILY Rx Instructions: administer with a meal cyclobenzaprine 10 mg tablet 10 mg PO TID PRN (Reason: Muscle Spasm) oxybutynin chloride 5 mg tablet extended release 24hr 5 mg PO DAILY hydroxyzine HCl 25 mg Tablet 25 mg PO DAILY PRN (Reason: Anxiety) eucalyptus-menthol Lozenge See Rx Instructions .ROUTE .COMPLEX Rx Instructions: DISSOLVE 1 LOZENGE BY MOUTH EVERY HOUR NEEDED camphor-methyl salicyl-menthol Adhesive Patch,Medicated See Rx Instructions .ROUTE .COMPLEX Rx Instructions: Apply 1 patch topically and change as needed for sciatic pain. losartan 25 mg tablet 25 mg PO DAILY cyanocobalamin (vitamin B-12) 1,000 mcg tablet 1,000 mcg PO DAILY Qty: 30 0RF levothyroxine 175 mcg capsule 175 mcg PO DAILY Qty: 30 0RF amoxicillin-pot clavulanate 875-125 mg tablet 1 tab PO Q12H Qty: 10 0RF acetazolamide 250 mg Tablet 250 mg PO EVERY OTHER DAY Qty: 14 0RF gabapentin 600 mg Tablet 300 mg PO TID@08,14,20 Qty: 30 0RF sertraline 50 mg Tablet 75 mg PO DAILY@08 Qty: 30 0RF albuterol sulfate 90 mcg/actuation HFA aerosol inhaler 2 inh inhalation Q4H PRN (Reason: shortness of breath or wheezing) Qty: 6.7 1RF furosemide 20 mg tablet See Rx Instructions .ROUTE .COMPLEX Rx Instructions: 20 mg orally at noon pimecrolimus [Elidel] 1 % cream 1 applic TOPICAL BID Rx Instructions: APPLY IN ABDOMINAL FOLDS TWICE DAILY FOR TWO MONTHS diclofenac sodium 1 % gel 4.5 inch TOPICAL QID PRN (Reason: Pain) ciclopirox 0.77 % cream 1 applic topical BID PRN (Reason: Rash) Rx Instructions: Apply to red areas twice a day, as needed. aripiprazole 10 mg tablet 10 mg PO DAILY zinc oxide 22 % cream 1 applic topical BID Qty: 113 0RF zinc oxide 20 % ointment 1 applic topical 5XD PRN (Reason: skin irritation) Qty: 500 0RF Discharge Orders: Discharge ED (Routine); Ordered 03/11/23 Ordered By: Kalpesh Booth Referrals: Fern Aguilar FNP [Primary Care Provider] - Discharge Diet: Diabetic Discharge Activity: Increase activity as tolerated Patient Instructions: Opioid Safety, Pain Management Activity Restrictions/Additional Instructions: Thank you for choosing [facility] for your healthcare needs today. Please realize this is an emergency room and that we are providing you with a medical screening exam and this may not be complete and all inclusive of all the testing and or work up that you may need to determine your ailment or severity of your illness. It is very important that you follow up as instructed or that you return to the Emergency Department should you have concerns or if your condition changes or worsens in any way. You were seen today for concerns about generalized weakness and decubitus ulcers there is a stage I decubitus ulcer on the left buttock you should apply zinc oxide to this area and avoid prolonged pressure on this area. Given your overall health that may be beneficial for you to discuss your primary care provider placement in a chcf. At this time there is no emergent condition. Coding Level of Care Code ED Nps for Luis Carlos Lee
== END 2023-03-11 18:32 | disposition home or self-care (01) ==
PROVIDERS: Emergency Provider Family Medicine; PCP Nurse Practitioner Family
DX: J96.11 Chronic respiratory failure with hypoxia (principal); B37.2 Candidiasis of skin and nail; L89.301 Pressure ulcer of unspecified buttock, stage 1; E66.2 Morbid (severe) obesity with alveolar hypoventilation; Z74.1 Need for assistance with personal care
CPT/HCPCS: 93005; 99283

== ENCOUNTER 2023-03-12 23:29 | Emergency (ER) | payer MEDICAID, SELFPAY ==
[2023-03-12 23:45] VITALS: BP 155/86; PULSE 92; RESP 20; TEMP 36.6; O2SAT 94
--- NOTE | 2023-03-13 00:02 | XRR_ITS ---
PROCEDURE INFORMATION: Exam: XR Chest Exam date and time: 03/13/2023 12:04 AM Age: 38 years old Clinical indication: Shortness of breath; Prior surgery; Surgery date: 6+ months; Surgery type: Gb; Patient HX: C/O SOB. Recent pneumonia. TECHNIQUE: Imaging protocol: Radiologic exam of the chest. Views: 1 view. COMPARISON: CT angio chest PE protcl [id number] 02/27/2023 4:59 PM FINDINGS: Lungs: Scattered hazy airspace opacities, decreased from 02/27/2023 radiographs. Pleural spaces: No large pleural effusion. No pneumothorax. Heart/Mediastinum: Unremarkable cardiomediastinal silhouette. Bones/joints: No acute abnormality. XR/XR chest 1V portable [id number] IMPRESSION: Scattered hazy airspace opacities, decreased from 02/27/2023 radiographs.
--- NOTE | 2023-03-13 00:07 | ED_ITS ---
HPI - SOB/Dyspnea General: Chief Complaint: Shortness of Breath/Dyspnea Stated Complaint: SOB Time Seen by Provider: 03/12/23 23:41 History of Present Illness: HPI Narrative: 38-year-old female with a history of mor bid obesity. She is dependent on oxygen at home. She was discharged from the hospital recently with pneumonia. She has been on antibiotics. She presents after a period of decreased responsiveness, evidently while sleeping. She was found to have low oxygen saturations. Currently, she feels fine . She states I told him not to call Associated symptoms: Deny abdominal pain, chest pain, fever(s), nausea, palpitations or vomiting Review of Systems Const: Denies: fever(s), chills or body aches Card: Denies: chest pain or palpitations Resp: Denies: dyspnea, productive cough or non-productive cough GI: Denies: abdominal pain, nausea or vomiting PFSH ED PFSH: Medical History Benign essential HTN Bipolar disorder Body mass index (BMI) greater than 70 in adult Chronic hypoxic respiratory failure Congestive heart failure Echo 06/2021: LV systolic function normal with EF of 55 to 60%, mild pulmonary hypertension with RVSP 35-40mmHg Depression Elevated brain natriuretic peptide (BNP) level Fibromyalgia syndrome Hypothyroidism [facility] endocrinology--Dr Haider Morbid obesity BMI 80+; has some features of pradar willi syndrome, but states she was tested at [facility] and does not carry formal diagnosis Nocturnal enuresis Nocturnal hypoxemia Nocturnal polyuria Obesity hypoventilation syndrome Osteoarthritis Psychiatric disorder Sleep apnea Sleep study 07/2021 severe sleep apnea with hypoxemia. Sleep titration recommended. Non-invasive ventilator recommended. As of 01/2023 has not had titration study. Suspected pulmonary embolism diagnosis in early 2021 for which chronic anticoagulation initiated Surgical History H/O laparoscopy (~2010) treatment of ovarian cysts; performed in [place] History of colonoscopy with polypectomy 2017 History of tonsillectomy and adenoidectomy History of placement of ear tubes History of cholecystectomy 2017-lap History of dental surgery Family History Grandmother Breast cancer Maternal--dx age unknown Diabetes Maternal Hypertension Maternal Mother Breast cancer dx age 40's ; unknown if hormone receptive Thyroid disease Grandfather No problems noted. Sister Thyroid disease Denies family history of Colon cancer Ovarian cancer Hypercholesteremia Uterine cancer Stroke Physical Exam Const: COMMON NORMALS: no acute distress GENERAL APPEARANCE: cooperative; not ill appearing and not frail appearing NUTRITIONAL APPEARANCE: obese morbidly obese ORIENTATION/CONSCIOUSNESS: Yes awake, Yes oriented to person, Yes oriented to place and Yes oriented to time HENMT: COMMON NORMALS: normocephalic, atraumatic and Normal external nose present HEAD & SCALP: normocephalic and atraumatic FACE & SINUS: normal facial exam and face symmetric NOSE: Normal external nose present Eye: COMMON NORMALS: Equal, round and reactive pupils present and EOMs intact bilaterally PUPIL: Yes Equal, round and reactive pupils present Neck/C-Spine: GENERAL: Yes trachea midline Chest: CHEST: Yes Symmetrical chest wall rise Resp: COMMON NORMALS: normal respiratory effort, No retractions, No use of accessory muscles and clear to auscultation bilaterally AUSCULTATION: clear to auscultation bilaterally Cardio: COMMON NORMALS: regular rate and regular rhythm RATE: regular rate RHYTHM: regular rhythm GI: COMMON NORMALS: Normal to inspection, nondistended, normoactive bowel sounds present Extremity: GENERAL: Yes edema Neuro: EFFIE COMA SCALE: document GCS findings Effie coma scale eye opening: Spontaneous [place] coma scale verbal response: Orientated [place] coma scale motor response: Obey commands Effie coma scale total score: 15 SENSORIUM/ORIENTATION: Yes oriented to person, Yes oriented to place and Yes oriented to time SENSORY EXAM: Yes extremities (intact) Psych: COMMON NORMALS: speech normal SPEECH: Yes normal speech Skin: COMMON NORMALS: no rashes or lesions noted GENERAL SKIN EXAM: no rashes or lesions noted Course Vital Signs: Vital signs: Vital Signs Temperature 98 F 03/12/23 23:45 Pulse Rate 92 03/12/23 23:45 Respiratory Rate 20 H 03/12/23 23:45 Blood Pressure 155/86 03/12/23 23:45 Pulse Oximetry 94 03/12/23 23:45 Oxygen Delivery Me thod Nasal Cannula 03/12/23 23:45 Oxygen Flow Rate 6 03/12/23 23:45 MDM - SOB/Dyspnea Medical Decision Making Patient currently appears at her baseline respiratory status, although her blood gas testing still shows some respiratory acidosis. She does not feel treatment is necessary. Her chest x-ray is improved from prior chest x-ray. She is afebrile. Oxygen saturations have been normal on her normal home oxygen setting. She will be allowed discharge. To return for any worsening shortness of breath, etc. Lab Data Labs/Radiology: Radiology Impressions Chest X-Ray 03/13/23 00:02 IMPRESSION: Scattered hazy airspace opacities, decreased from 02/27/2023 radiographs. Laboratory Results Specimen Type Arterial 03/13/23 00:43 Sample Site Radial, left 03/13/23 00:43 ABG pH 7.27 (7.35-7.45) L 03/13/23 00:43 ABG pCO2 84.3 mmHg (35-45) H* 03/13/23 00:43 ABG pO2 88.0 mmHg (80.0-100.0) 03/13/23 00:43 ABG PO2/FiO2 Ratio 0 03/13/23 00:43 ABG HCO3 39.0 mmol/L (22-26) H 03/13/23 00:43 ABG Base Excess 9.3 mmol/L (-2.0-2.0) H 03/13/23 00:43 Tyrese Test Pos 03/13/23 00:43 Hematocrit 35.8 % (37-47) L 03/13/23 00:43 O2 Delivery Device Nc 03/13/23 00:43 O2 Liters/Min 6.0 % 03/13/23 00:43 FiO2 44.0 % 03/13/23 00:43 Oyster Floater ID Ed 03/13/23 00:43 All radiology interpretation(s) finalized by discharge Discharge Plan Discharge Patient Disposition: Home Clinical Impression: Acute hypercapnic respiratory failure due to obstructive sleep apnea, Obesity hypoventilation syndrome Condition: Stable Prescriptions: No Action Eucerin Cream 1 applic topical BID PRN (Reason: unknown) norethindrone (contraceptive) 0.35 mg tablet 0.35 mg PO DAILY Qty: 84 3RF nystatin 100,000 unit/gram powder 1 applic topical BID Qty: 60 6RF diphenhydramine HCl [Banophen] 25 mg Capsule 25 mg PO Q6H PRN (Reason: Allergy Symptoms) loperamide 2 mg Capsule 2 mg PO Q8H PRN (Reason: Diarrhea) oxcarbazepine 300 mg Tablet 300 mg PO BID@08,20 dicyclomine 10 mg Capsule 10 mg PO TID PRN (Reason: Abdominal Discomfort) cetirizine 10 mg Tablet 10 mg PO DAILY@08 famotidine 20 mg Tablet 20 mg PO DAILY@08 hydroxyzine HCl 25 mg Tablet 25 mg PO BEDTIME@20 PRN (Reason: Sleep) fluticasone propionate 50 mcg/actuation [place],Suspension 1 spray INTRANASAL DAILY@14 bupropion HCl 300 mg Tablet Extended Release 24 Hr 300 mg PO DAILY@08 potassium chloride 20 mEq Tablet Extended Release 20 meq PO DAILY@08 ergocalciferol (vitamin D2) [Vitamin D2] 1,250 mcg (50,000 unit) capsule 50,000 unit PO Q7D Rx Instructions: on TUESDAY Eliquis 5 mg tablet 5 mg PO BID@08,20 furosemide 40 mg tablet 40 mg PO DAILY@08 Neosporin (ihl-uqu-jprlh) 3.5mg-400 unit- 5,000 unit/gram Ointment 1 applic TOPICAL BID PRN (Reason: unknown) epinephrine [EpiPen 2-Norm] 0.3 mg/0.3 mL Auto-Injector 0.3 mg IM Q4H PRN (Reason: Allergic Reaction) lidocaine 5 % Adhesive Patch,Medicated 1 patch TOPICAL DAILY Rx Instructions: leave on most painful area for up to 12 hrs menthol Gel 1 applic TOPICAL BID PRN (Reason: JOINT PAIN) calcium carbonate-vitamin D3 [Calcium 600 + D(3)] 600 mg-10 mcg (400 unit) Tablet 1 tab PO DAILY olopatadine 0.2 % drops 1 drp ophthalmic (eye) DAILY PRN (Reason: Dry Eye(S)) Probiotic 3 billion cell Capsule 3,000 mmu cells PO DAILY Rx Instructions: administer with a meal cyclobenzaprine 10 mg tablet 10 mg PO TID PRN (Reason: Muscle Spasm) oxybutynin chloride 5 mg tablet extended release 24hr 5 mg PO DAILY hydroxyzine HCl 25 mg Tablet 25 mg PO DAILY PRN (Reason: Anxiety) eucalyptus-menthol Lozenge See Rx Instructions .ROUTE .COMPLEX Rx Instructions: DISSOLVE 1 LOZENGE BY MOUTH EVERY HOUR NEEDED camphor-methyl salicyl-menthol Adhesive Patch,Medicated See Rx Instructions .ROUTE .COMPLEX Rx Instructions: Apply 1 patch topically and change as needed for sciatic pain. losartan 25 mg tablet 25 mg PO DAILY cyanocobalamin (vitamin B-12) 1,000 mcg tablet 1,000 mcg PO DAILY Qty: 30 0RF levothyroxine 175 mcg capsule 175 mcg PO DAILY Qty: 30 0RF amoxicillin-pot clavulanate 875-125 mg tablet 1 tab PO Q12H Qty: 10 0RF acetazolamide 250 mg Tablet 250 mg PO EVERY OTHER DAY Qty: 14 0RF gabapentin 600 mg Tablet 300 mg PO TID@08,14,20 Qty: 30 0RF sertraline 50 mg Tablet 75 mg PO DAILY@08 Qty: 30 0RF albuterol sulfate 90 mcg/actuation HFA aerosol inhaler 2 inh inhalation Q4H PRN (Reason: shortness of breath or wheezing) Qty: 6.7 1RF furosemide 20 mg tablet See Rx Instructions .ROUTE .COMPLEX Rx Instructions: 20 mg orally at noon pimecrolimus [Elidel] 1 % cream 1 applic TOPICAL BID Rx Instructions: APPLY IN ABDOMINAL FOLDS TWICE DAILY FOR TWO MONTHS diclofenac sodium 1 % gel 4.5 inch TOPICAL QID PRN (Reason: Pain) ciclopirox 0.77 % cream 1 applic topical BID PRN (Reason: Rash) Rx Instructions: Apply to red areas twice a day, as needed. aripiprazole 10 mg tablet 10 mg PO DAILY zinc oxide 22 % cream 1 applic topical BID Qty: 113 0RF zinc oxide 20 % ointment 1 applic topical 5XD PRN (Reason: skin irritation) Qty: 500 0RF Discharge Orders: Discharge ED (Routine); Ordered 03/13/23 Ordered By: Cordell Colmenares Referrals: Fern Aguilar FNP [Primary Care Provider] - 1-3 days Patient Instructions: Dyspnea (ED), Opioid Safety, Pain Management Activity Restrictions/Additional Instructions: Return for worsening shortness of breath, any chest discomfort, mental status changes, other concerning symptoms. Coding Level of Care Code ED Film Librarian for Luis Carlos Lee
[2023-03-13 00:54] LABS: ABG PH Result 7.27 (7.35-7.45); Arterial Blood Gas Hematocrit 35.8 % (37-47); Base Excess ABG 9.3 mmol/L (-2.0-2.0); Blood Gas Allen Test Pos; Blood Gas Sample Type Arterial
[2023-03-13 00:55] LABS: Blood Gas Operator Identificat ED; Blood Gas Sample Site Radial, left; Oxygen Device NC; PO2 FiO2 Ratio Arterial Blood 0
[2023-03-13 04:35] LABS: ABG PCO2 84.3 mmHg (35-45)
== END 2023-03-13 03:00 | disposition home or self-care (01) ==
PROVIDERS: Emergency Provider Emergency Medicine; PCP Nurse Practitioner Family
DX: J96.02 Acute respiratory failure with hypercapnia (principal); E66.2 Morbid (severe) obesity with alveolar hypoventilation; Z99.81 Dependence on supplemental oxygen; Z68.44 Body mass index [BMI] 60.0-69.9, adult
CPT/HCPCS: 36600; 71045; 82803; 99284

== ENCOUNTER → 2023-03-14 08:58 | Outpatient (BNVA) | payer MEDICAID, SELFPAY | PROVIDERS: PCP Nurse Practitioner Family; Visit Provider Podiatrist Foot & Ankle Surgery | DX: S82.831D Other fracture of upper and lower end of right fibula, subsequent encounter for closed fracture with routine healing; X58.XXXD Exposure to other specified factors, subsequent encounter | CPT/HCPCS: 73610; 99213 ==

== ENCOUNTER → 2023-04-06 11:33 | Outpatient (BNVA) | payer MEDICAID, SELFPAY | PROVIDERS: PCP Nurse Practitioner Family; Visit Provider Podiatrist Foot & Ankle Surgery | DX: S82.831A Other fracture of upper and lower end of right fibula, initial encounter for closed fracture (principal); S82.831D Other fracture of upper and lower end of right fibula, subsequent encounter for closed fracture with routine healing; X58.XXXD Exposure to other specified factors, subsequent encounter | CPT/HCPCS: 73610; 99213 ==

== ENCOUNTER → 2023-04-26 13:21 | Outpatient (BNVA) | payer MEDICAID, SELFPAY | PROVIDERS: PCP Nurse Practitioner Family; Visit Provider Podiatrist Foot & Ankle Surgery | DX: S82.831D Other fracture of upper and lower end of right fibula, subsequent encounter for closed fracture with routine healing (principal); X58.XXXD Exposure to other specified factors, subsequent encounter | CPT/HCPCS: 73610; 99213 ==

== ENCOUNTER 2023-05-04 01:00 | Outpatient (CLI) | payer MEDICAID, SELFPAY | END 2023-05-04 01:01 | disposition home or self-care (01) | LOC: SLEEP 05-05 11:02 | PROVIDERS: PCP Nurse Practitioner Family; Visit Provider Nurse Practitioner Family | DX: G47.33 Obstructive sleep apnea (adult) (pediatric) (principal); R09.02 Hypoxemia; G47.10 Hypersomnia, unspecified | CPT/HCPCS: G0399 ==

== ENCOUNTER 2023-06-23 17:16 | Emergency (ER) | payer MEDICAID, SELFPAY ==
[2023-06-23 17:23] VITALS: BP 133/85; PULSE 66; RESP 18; TEMP 36.4; O2SAT 95
--- NOTE | 2023-06-23 17:52 | ECG_ITS ---
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 Measurements Intervals [place] Rate: 67 P: 34 ME: 128 QRS: 53 QRSD: 123 T: -1 QT: 395 QTc: 417 Interpretive Statements SINUS RHYTHM POSSIBLE RIGHT VENTRICULAR CONDUCTION DELAY [RSR (QR) IN V1/V2] NONSPECIFIC T-WAVE ABNORMALITY Compared to ECG 03/11/2023 15:41:20 T-wave abnormality now present Electronically Signed On 06-23-2023 22:13:41 CDT by Paradise Dumont M.D. [id number] f
--- NOTE | 2023-06-23 17:52 | XR_ITS ---
WS: [id number] Portable AP upright chest, 06/23/2023 Clinical Data: cxp Comparison: Portable chest, 03/13/2023 Findings: No nodules, masses or effusions are seen. The heart is enlarged. The pulmonary vascularity is not increased. No pneumonia or pneumothorax is seen. Impression: Cardiomegaly.
[2023-06-23 18:56] LABS: Basophils # 0.1 10^3/uL (0.0-0.1); Basophils % 0.8 %; Eosinophils # 0.2 10^3/uL (0.0-0.8); Hematocrit 51.2 % (36-47); Lymphocytes # 2.6 10^3/uL (0.8-4.8); Lymphocytes % 25.2 %; Mean Corpuscular HGB Conc 30.1 g/dL (30-55); Mean Corpuscular Hemoglobin 29.6 pg (27-33); Mean Corpuscular Volume 98.3 fl (85-98); Mean Platelet Volume 12.9 fL (7.4-10.4); Monocytes # 0.6 10^3/uL (0.2-0.9); Neutrophils % 65.8 %; Nucleated Red Blood Cells % 0 %; Platelet Count 170 10^3/cmm (157-399); Red Blood Count 5.21 10^6/uL (3.85-5.65); Red Cell Distribution Width 16.1 % (12.1-15.1); White Blood Count 10.17 10^3/uL (3.29-11.43)
[2023-06-23 19:21] LABS: Troponin(5th) Baseline 14 ng/L (0-10)
[2023-06-23 19:25] VITALS: BP 136/72; PULSE 67; RESP 18; O2SAT 91
[2023-06-23 19:28] LABS: Alanine Aminotransferase 20 U/L (0-33); Albumin Level 4.3 g/dL (3.5-5.2); Alkaline Phosphatase 177 U/L (35-105); Aspartate Amino Transferase 24 U/L (0-32); Blood Urea Nitrogen 20 mg/dL (6-20); Calcium 9.1 mg/dL (8.5-10.5); Carbon Dioxide 26 mmol/L (22-29); Chloride 102 mmol/L (98-107); Creatinine Clr Calc Pharmacy 125.8205; Globulin 2.8 g/dL (1.3-4.6); Glomerular Filtration Rate 62.1 mL/min (90-130); Glucose 98 mg/dL (65-115); NT Pro B Type Natriuretic Pept 73 pg/mL (0-125); Osmolality Calculated 291 mOsm/kg (285-295); Sodium 139 mmol/L (136-145); Total Bilirubin 0.4 mg/dL (0.15-1.2); Total Protein 7.1 g/dL (6.6-8.7)
--- NOTE | 2023-06-23 19:32 | ECG_ITS ---
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 Measurements Intervals [place] Rate: 64 P: 18 PA: 145 QRS: 49 QRSD: 125 T: -7 QT: 419 QTc: 433 Interpretive Statements SINUS RHYTHM POSSIBLE RIGHT VENTRICULAR CONDUCTION DELAY [RSR (QR) IN V1/V2] NONSPECIFIC T-WAVE ABNORMALITY Compared to ECG 06/23/2023 17:25:13 No significant changes Electronically Signed On 06-23-2023 22:19:41 CDT by Paradise Dumont M.D. [id number]
[2023-06-23 19:36] LABS: Anion Gap 15.4 (5-19); Potassium 4.4 mmol/L (3.5-5.1)
[2023-06-23 20:08] VITALS: BP 115/69; PULSE 71; RESP 18; O2SAT 94
--- NOTE | 2023-06-23 20:09 | PC.NURSE ---
pt made aware we need a ua, pt states went to bathroom prior to being placed in room
--- NOTE | 2023-06-23 20:49 | ED_ITS ---
HPI - Chest Pain 2 General: Chief Complaint: Chest Pain Stated Complaint: chest pain Time Seen by Provider: 06/23/23 19:29 History of Present Illness: Patient presents to the ER with complaints of chest pain and shortness of breath. Patient says she was walking to the mailbox at home earlier today when she became short of breath started having chest pain. Patient says she is never had any cardiac history in the past. Patient is morbidly obese. Pain is reproducible with palpation. Patient has a history of suspected PE back in 2021. Patient is currently on Eliquis. Review of Systems 2 General: Reports: 10 or more systems reviewed and unremarkable except in HPI and below PFSH ED 2 PFSH: Medical History Obesity hypoventilation syndrome Chronic hypoxic respiratory failure Body mass index (BMI) greater than 70 in adult Morbid obesity BMI 80+; has some features of pradar willi syndrome, but states she was tested at [facility] and does not carry formal diagnosis Psychiatric disorder Benign essential HTN Nocturnal enuresis Nocturnal hypoxemia Elevated brain natriuretic peptide (BNP) level Suspected pulmonary embolism diagnosis in early 2021 for which chronic anticoagulation initiated Sleep apnea Sleep study 07/2021 severe sleep apnea with hypoxemia. Sleep titration recommended. Non-invasive ventilator recommended. As of 01/2023 has not had titration study. Bipolar disorder Nocturnal polyuria Fibromyalgia syndrome Congestive heart failure Echo 06/2021: LV systolic function normal with EF of 55 to 60%, mild pulmonary hypertension with RVSP 35-40mmHg Osteoarthritis Hypothyroidism [facility] endocrinology--Dr Haider Depression Surgical History H/O laparoscopy (~2010) treatment of ovarian cysts; performed in [place] History of colonoscopy with polypectomy 2018 History of tonsillectomy and adenoidectomy History of placement of ear tubes History of cholecystectomy 2017-lap History of dental surgery Family History Grandmother Breast cancer Maternal--dx age unknown Diabetes Maternal Hypertension Maternal Mother Breast cancer dx age 40's ; unknown if hormone receptive Thyroid disease Grandfather No problems noted. Sister Thyroid disease Denies family history of Colon cancer Ovarian cancer Hypercholesteremia Uterine cancer Stroke Physical Exam 2 Const: COMMON NORMALS: no acute distress, patient oriented x3, no limitations, healthy appearing, alert and well nourished; negative for average body habitus (Morbid obesity) HENMT: COMMON NORMALS: normocephalic, atraumatic, hearing grossly normal bilaterally, external ears normal, Normal external nose present, moist oral mucous membranes and oropharynx normal HEAD & SCALP: normocephalic and atraumatic NOSE: Normal external nose present EXTERNAL EAR: Yes external ears normal Neck/C-Spine: COMMON NORMALS: no JVD Chest: COMMONS NORMALS: normal inspection of the chest; negative for normal palpation of entire chest wall (Palpation anywhere in the anterior chest wall reproduces the pain.) Resp: COMMON NORMALS: normal respiratory effort, No retractions, No use of accessory muscles and clear to auscultation bilaterally AUSCULTATION: clear to auscultation bilaterally Cardio: COMMON NORMALS: no JVD, regular rate, regular rhythm, S1 normal heart sound present, S2 normal heart sound present, No gallops present (Cardio), No clicks present (Cardio), No murmurs present (Cardio) and No rub (Cardio) R ATE: regular rate RHYTHM: regular rhythm HEART SOUNDS: S1 normal heart sound present and S2 normal heart sound present GI: COMMON NORMALS: Normal to inspection, nondistended, normoactive bowel sounds present, Soft to palpation, non-tender, No hepatosplenomegaly present and no masses PALPATION: Yes Soft to palpation and Yes No hepatosplenomegaly present Neuro: COMMON NORMALS: patient oriented x3 SENSORIUM/ORIENTATION: Yes alert Course 2 Vital Signs: Vital signs: Vital Signs Temperature 97.6 F 06/23/23 17:23 Pulse Rate 71 06/23/23 20:08 Respiratory Rate 18 06/23/23 20:08 Blood Pressure 148/71 06/23/23 21:24 Pulse Oximetry 94 06/23/23 20:08 Oxygen Delivery Me thod Nasal Cannula 06/23/23 20:08 Oxygen Flow Rate 4 06/23/23 20:08 MDM - Chest Pain Medical Decision Making Patient was worked up in a standard chest pain fashion with serial EKGs, cardiac enzymes, chest x-ray all of which was essentially benign with no acute cardiac cause found. It is thought the patient's pain is noncardiac in nature. Patient be discharged home. Differential Diagnosis Unlikely acute massive pulmonary embolism, acute respiratory failure, acute myocardial infarction, cardiac arrest or sudden cardiac Medical Records I reviewed the patient's medical records. Lab Data I reviewed the patient's lab results. 06/23/23 18:45 06/23/23 18:45 Laboratory Results WBC 10.17 10^3/uL (3.29-11.43) 06/23/23 18:45 RBC 5.21 10^6/uL (3.85-5.65) 06/23/23 18:45 Hgb 15.40 g/dL (11.27-16.99) 06/23/23 18:45 Hct 51.2 % (36-47) H 06/23/23 18:45 MCV 98.3 fl (85-98) H 06/23/23 18:45 MCH 29.6 pg (27-33) 06/23/23 18:45 MCHC 30.1 g/dL (30-55) 06/23/23 18:45 RDW 16.1 % (12.1-15.1) H 06/23/23 18:45 Plt Count 170 10^3/cmm (157-399) 06/23/23 18:45 MPV 12.9 fL (7.4-10.4) H 06/23/23 18:45 Neut % (Auto) 65.8 % 06/23/23 18:45 Lymph % (Auto) 25.2 % 06/23/23 18:45 [place] % (Auto) 6.0 % 06/23/23 18:45 Eos % (Auto) 2.0 % 06/23/23 18:45 Baso % (Auto) 0.8 % 06/23/23 18:45 Neut # (Auto) 6.70 10^3/uL (1.8-7.7) 06/23/23 18:45 Lymph # (Auto) 2.6 10^3/uL (0.8-4.8) 06/23/23 18:45 [place] # (Auto) 0.6 10^3/uL (0.2-0.9) 06/23/23 18:45 Eos # (Auto) 0.2 10^3/uL (0.0-0.8) 06/23/23 18:45 Baso # (Auto) 0.1 10^3/uL (0.0-0.1) 06/23/23 18:45 Nucleated RBC % (auto) 0 % 06/23/23 18:45 Nucleated RBCs # 0.0 /100WBC 06/23/23 18:45 Sodium 139 mmol/L (136-145) 06/23/23 18:45 Potassium 4.4 mmol/L (3.5-5.1) 06/23/23 18:45 Chloride 102 mmol/L (98-107) 06/23/23 18:45 Carbon Dioxide 26 mmol/L (22-29) 06/23/23 18:45 Anion Gap 15.4 (5-19) 06/23/23 18:45 BUN 20 mg/dL (6-20) 06/23/23 18:45 Creatinine 1.0 mg/dL (0.5-0.9) H 06/23/23 18:45 GFR Calculation 62.1 mL/min (90-130) L 06/23/23 18:45 Glucose 98 mg/dL (65-115) 06/23/23 18:45 Calculated Osmolality 291 mOsm/kg (285-295) 06/23/23 18:45 Calcium 9.1 mg/dL (8.5-10.5) 06/23/23 18:45 Total Bilirubin 0.4 mg/dL (0.15-1.2) 06/23/23 18:45 AST 24 U/L (0-32) 06/23/23 18:45 ALT 20 U/L (0-33) 06/23/23 18:45 Alkaline Phosphatase 177 U/L (35-105) H 06/23/23 18:45 Troponin T Baseline 14 ng/L (0-10) H 06/23/23 18:45 Troponin T 120 Minute 13.98 ng/L (0-10) H 06/23/23 20:42 Delta Troponin T -0.02 ABS# (0-10) L 06/23/23 20:42 NT-Pro-B Natriuret Pep 73 pg/mL (0-125) 06/23/23 18:45 Total Protein 7.1 g/dL (6.6-8.7) 06/23/23 18:45 Albumin 4.3 g/dL (3.5-5.2) 06/23/23 18:45 Globulin 2.8 g/dL (1.3-4.6) 06/23/23 18:45 All radiology interpretation(s) finalized by discharge Discharge Plan Discharge Patient Disposition: Home Clinical Impression: Atypical chest pain Condition: Stable Prescriptions: No Action Eucerin Cream 1 applic topical BID PRN (Reason: unknown) (DME) Bedside Commode See Rx Instructions .Route .MEDSUPPLY Qty: 1 0RF Rx Instructions: due to patient needing to remain NWB besides heel transferring to utilize facility. (DME) Antislip Socks See Rx Instructions .Route .MEDSUPPLY Qty: 1 0RF Rx Instructions: As directed (DME) addison lift See Rx Instructions .Route .MEDSUPPLY Qty: 1 0RF Rx Instructions: As directed norethindrone (contraceptive) 0.35 mg tablet 0.35 mg PO DAILY Qty: 84 3RF nystatin 100,000 unit/gram powder 1 applic topical BID Qty: 60 6RF losartan 25 mg tablet 25 mg PO DAILY Qty: 90 3RF diphenhydramine HCl [Banophen] 25 mg Capsule 25 mg PO Q6H PRN (Reason: Allergy Symptoms) loperamide 2 mg Capsule 2 mg PO Q8H PRN (Reason: Diarrhea) oxcarbazepine 300 mg Tablet 300 mg PO BID@08,20 dicyclomine 10 mg Capsule 10 mg PO TID PRN (Reason: Abdominal Discomfort) cetirizine 10 mg Tablet 10 mg PO DAILY@08 famotidine 20 mg Tablet 20 mg PO DAILY@08 hydroxyzine HCl 25 mg Tablet 25 mg PO BEDTIME@20 PRN (Reason: Sleep) fluticasone propionate 50 mcg/actuation [place],Suspension 1 spray INTRANASAL DAILY@14 bupropion HCl 300 mg Tablet Extended Release 24 Hr 300 mg PO DAILY@08 potassium chloride 20 mEq Tablet Extended Release 20 meq PO DAILY@08 ergocalciferol (vitamin D2) [Vitamin D2] 1,250 mcg (50,000 unit) capsule 50,000 unit PO Q7D Rx Instructions: on TUESDAY Eliquis 5 mg tablet 5 mg PO BID@08,20 furosemide 40 mg tablet 40 mg PO DAILY@08 Neosporin (npm-seq-rhqua) 3.5mg-400 unit- 5,000 unit/gram Ointment 1 applic TOPICAL BID PRN (Reason: unknown) epinephrine [EpiPen 2-Norm] 0.3 mg/0.3 mL Auto-Injector 0.3 mg IM Q4H PRN (Reason: Allergic Reaction) lidocaine 5 % Adhesive Patch,Medicated 1 patch TOPICAL DAILY Rx Instructions: leave on most painful area for up to 12 hrs menthol Gel 1 applic TOPICAL BID PRN (Reason: JOINT PAIN) calcium carbonate-vitamin D3 [Calcium 600 + D(3)] 600 mg-10 mcg (400 unit) Tablet 1 tab PO DAILY olopatadine 0.2 % drops 1 drp ophthalmic (eye) DAILY PRN (Reason: Dry Eye(S)) Probiotic 3 billion cell Capsule 3,000 mmu cells PO DAILY Rx Instructions: administer with a meal cyclobenzaprine 10 mg tablet 10 mg PO TID PRN (Reason: Muscle Spasm) oxybutynin chloride 5 mg tablet extended release 24hr 5 mg PO DAILY hydroxyzine HCl 25 mg Tablet 25 mg PO DAILY PRN (Reason: Anxiety) eucalyptus-menthol Lozenge See Rx Instructions .ROUTE .COMPLEX Rx Instructions: DISSOLVE 1 LOZENGE BY MOUTH EVERY HOUR NEEDED camphor-methyl salicyl-menthol Adhesive Patch,Medicated See Rx Instructions .ROUTE .COMPLEX Rx Instructions: Apply 1 patch topically and change as needed for sciatic pain. cyanocobalamin (vitamin B-12) 1,000 mcg tablet 1,000 mcg PO DAILY Qty: 30 0RF levothyroxine 175 mcg capsule 175 mcg PO DAILY Qty: 30 0RF amoxicillin-pot clavulanate 875-125 mg tablet 1 tab PO Q12H Qty: 10 0RF acetazolamide 250 mg Tablet 250 mg PO EVERY OTHER DAY Qty: 14 0RF gabapentin 600 mg Tablet 300 mg PO TID@08,14,20 Qty: 30 0RF sertraline 50 mg Tablet 75 mg PO DAILY@08 Qty: 30 0RF albuterol sulfate 90 mcg/actuation HFA aerosol inhaler 2 inh inhalation Q4H PRN (Reason: shortness of breath or wheezing) Qty: 6.7 1RF furosemide 20 mg tablet See Rx Instructions .ROUTE .COMPLEX Rx Instructions: 20 mg orally at noon pimecrolimus [Elidel] 1 % cream 1 applic TOPICAL BID Rx Instructions: APPLY IN ABDOMINAL FOLDS TWICE DAILY FOR TWO MONTHS diclofenac sodium 1 % gel 4.5 inch TOPICAL QID PRN (Reason: Pain) ciclopirox 0.77 % cream 1 applic topical BID PRN (Reason: Rash) Rx Instructions: Apply to red areas twice a day, as needed. aripiprazole 10 mg tablet 10 mg PO DAILY zinc oxide 22 % cream 1 applic topical BID Qty: 113 0RF zinc oxide 20 % ointment 1 applic topical 5XD PRN (Reason: skin irritation) Qty: 500 0RF Discharge Orders: Discharge ED (Routine); Ordered 06/23/23 Ordered By: Qasim Santo Referrals: Fern Aguilar FNP [Primary Care Provider] - 1 week Patient Instructions: Noncardiac Chest Pain (ED) Activity Restrictions/Additional Instructions: Your evaluation in ER did not show any acute cardiac cause of your chest pain. Is thought it is noncardiac in nature. This may include chest wall pain. Please follow-up with your primary care physician within next 7 days for further evaluation and treatment. If your pain worsens please return to the ER. Coding Level of Care Code ED Local Area Network Administrator for Luis Carlos Lee
[2023-06-23 21:08] LABS: Troponin 5 2HR 13.98 ng/L (0-10)
[2023-06-23 21:11] LABS: Troponin 5 2HR Delta -0.02 ABS# (0-10)
[2023-06-23 21:24] VITALS: BP 148/71
[2023-06-23 21:35] LABS: Amphetamines Screen Urine Negative (Negative); Barbiturates Screen Urine Negative (Negative); Benzodiazepines Screen Urine Negative (Negative); Cocaine Screen Urine Negative (Negative); Opiate Screen Urine Negative (Negative); PCP Screen Urine Negative (Negative); THC Screen Urine Negative (Negative)
[2023-06-23 21:36] LABS: Add Urine Microscopic? YES; Bacteria Urine TRACE /hpf; Bilirubin Urine Neg (Negative); Blood Urine 2+ (Negative); Glucose Urine UA Norm (Normal); Ketones Urine Negative (Negative); Leukocyte Esterase Urine 1+ (Negative); Mucus Urine 1+ /hpf; Nitrate Urine Negative (Negative); Protein Urine 1+ (Negative); Urine Appearance Clear (CLEAR); Urine Color Yellow (Yellow); Urobilinogen Urine Neg (Negative); WBC Urine 0-4 /hpf (0-5); pH Urine 6 (5-7)
[2023-06-23 21:37] LABS: Add Urine Culture? No
[2023-06-23 21:38] LABS: HCG Qualitative Urine. Negative (Negative)
== END 2023-06-23 21:31 | disposition home or self-care (01) ==
PROVIDERS: Internal Medicine; Emergency Provider Emergency Medicine; PCP Nurse Practitioner Family
DX: R07.89 Other chest pain (principal); Z79.01 Long term (current) use of anticoagulants; I11.0 Hypertensive heart disease with heart failure; I50.9 Heart failure, unspecified
CPT/HCPCS: 36415; 71045; 80053; 80306; 81001; 81025; 83880; 84484; 85025; 93005; 99285

== ENCOUNTER 2023-09-13 20:00 | Outpatient (CLI) | payer MEDICAID, SELFPAY | END 2023-09-13 20:01 | disposition home or self-care (01) | LOC: SLEEP 09-14 06:03 | PROVIDERS: PCP Nurse Practitioner Family; Visit Provider Nurse Practitioner Family | DX: G47.33 Obstructive sleep apnea (adult) (pediatric) (principal); Z99.89 Dependence on other enabling machines and devices | CPT/HCPCS: 95811 ==

== ENCOUNTER → 2023-09-27 11:25 | Outpatient (BNVA) | payer MEDICAID, SELFPAY | PROVIDERS: PCP Nurse Practitioner Family; Visit Provider Internal Medicine Cardiovascular Disease | DX: I11.0 Hypertensive heart disease with heart failure (principal); I50.32 Chronic diastolic (congestive) heart failure; R06.00 Dyspnea, unspecified; R09.89 Other specified symptoms and signs involving the circulatory and respiratory systems; Z79.01 Long term (current) use of anticoagulants | CPT/HCPCS: 99214 ==

== ENCOUNTER 2024-01-01 16:35 | Emergency (ER) | payer MEDICAID, SELFPAY ==
--- NOTE | 2024-01-01 16:39 | XRR_ITS ---
PROCEDURE INFORMATION: Exam: XR Chest Exam date and time: 01/01/2024 4:51 PM Age: 38 years old Clinical indication: Chest pressure; Patient HX: Chest pain TECHNIQUE: Imaging protocol: Radiologic exam of the chest. Views: 1 view. COMPARISON: CR XR chest 1V portable [id number] 06/23/2023 5:12 PM FINDINGS: Lungs: Unremarkable. No consolidation. Pleural spaces: Unremarkable. No pleural effusion. No pneumothorax. Heart/Mediastinum: Unremarkable. No cardiomegaly. Bones/joints: Unremarkable. XR/XR chest 1V portable [id number] IMPRESSION: No acute findings.
--- NOTE | 2024-01-01 16:39 | ECG_ITS ---
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 Measurements Intervals [place] Rate: 66 P: 65 FL: 158 QRS: 64 QRSD: 120 T: 19 QT: 382 QTc: 402 Interpretive Statements SINUS RHYTHM POSSIBLE RIGHT VENTRICULAR CONDUCTION DELAY [RSR (QR) IN V1/V2] NONSPECIFIC T-WAVE ABNORMALITY Compared to ECG 06/23/2023 19:32:44 No significant changes Electronically Signed On 01-02-2024 18:46:49 CDT by Ilan Santana M.D. [id number] f
[2024-01-01 16:43] VITALS: BP 150/83; PULSE 67; RESP 16; TEMP 36.8; O2SAT 93; BMI 61.2
[2024-01-01 16:54] LABS: Basophils # 0.1 10^3/uL (0.0-0.1); Eosinophils # 0.2 10^3/uL (0.0-0.8); Eosinophils % 2.4 %; Hematocrit 48.4 % (36-47); Lymphocytes # 2.6 10^3/uL (0.8-4.8); Lymphocytes % 27.7 %; Mean Corpuscular HGB Conc 28.7 g/dL (30-55); Mean Corpuscular Hemoglobin 32.3 pg (27-33); Mean Corpuscular Volume 112.3 fl (85-98); Monocytes # 0.5 10^3/uL (0.2-0.9); Monocytes % 5.4 %; Neutrophils # 5.97 10^3/uL (1.8-7.7); Neutrophils % 63.2 %; Nucleated Red Blood Cells % 0 %; Platelet Count 214 10^3/cmm (157-399); Red Blood Count 4.31 10^6/uL (3.85-5.65); Red Cell Distribution Width 12.6 % (12.1-15.1); White Blood Count 9.45 10^3/uL (3.29-11.43)
[2024-01-01 17:17] LABS: Troponin(5th) Baseline 9 ng/L (0-10)
--- NOTE | 2024-01-01 17:17 | W.ED.CHESTPA ---
HPI - Chest Pain General: Chief Complaint: Chest Pain Stated Complaint: chest pain Time Seen by Provider: 01/01/24 17:05 History of Present Illness: 38-year-old female comes in today for complaints of chest discomfort and blood in stools. Patient appears nontoxic. Patient appears in no acute distress. Respirations are even lungs are clear to auscultation. Skin is warm and dry. Related Data Home Medications Medication Instructions Recorded Confirmed bupropion HCl 300 mg 24 hr tablet, 300 mg PO DAILY@02/16/20 09/27/23 extended release cetirizine 10 mg tablet 10 mg PO DAILY@02/16/20 09/27/23 famotidine 20 mg tablet 20 mg PO DAILY@02/16/20 09/27/23 fluticasone propionate 50 1 spray intranasal DAILY@02/16/20 09/27/23 mcg/actuation nasal spray,suspension potassium chloride 20 mEq 20 meq PO DAILY@02/16/20 09/27/23 tablet,extended release dicyclomine 10 mg capsule 10 mg PO TID PRN Abdominal 06/15/21 09/27/23 Discomfort loperamide 2 mg capsule 2 mg PO Q8H PRN Diarrhea 06/15/21 09/27/23 oxcarbazepine 300 mg tablet 300 mg PO BID@06/15/21 09/27/23 lanolin alcohols-mineral 1 applic topical BID PRN unknown 07/01/21 09/27/23 oil-w.petrolatum-ceresin topical cream (Eucerin topical cream) apixaban 5 mg tablet (Eliquis) 5 mg PO BID@11/26/21 09/27/23 epinephrine 0.3 mg/0.3 mL 0.3 mg IM Q4H PRN Allergic Reaction 11/26/21 09/27/23 injection, auto-injector (EpiPen 2-Norm) ergocalciferol (vitamin D2) 1,250 50,000 unit PO Q7D 11/26/21 09/27/23 mcg (50,000 unit) capsule (Vitamin D2) furosemide 40 mg tablet 40 mg PO DAILY@08 11/26/21 09/27/23 neomycin-bacitracn Zn-polymyx 3.5 1 applic topical BID PRN unknown 11/26/21 09/27/23 mg-400 unit-5,000 unit/gram top oint (Neosporin (rge-iec-kdqde)) calcium carbonate 600 mg-vitamin 1 tab PO DAILY 02/12/22 09/27/23 D3 10 mcg (400 unit) tablet (Calcium 600 + D(3)) lactobacillus combination no.4 3 3,000 mmu cells PO DAILY 02/12/22 09/27/23 billion cell capsule (Probiotic) lidocaine 5 % topical patch 1 patch topical DAILY 02/12/22 09/27/23 menthol 1 applic topical BID PRN JOINT PAIN 02/12/22 09/27/23 aripiprazole 10 mg tablet 10 mg PO DAILY 01/17/23 09/27/23 ciclopirox 0.77 % topical cream 1 applic topical BID PRN Rash 01/17/23 09/27/23 diclofenac sodium 1 % topical gel 4.5 inch topical QID PRN Pain 01/17/23 09/27/23 furosemide 20 mg tablet See Rx Instructions .Route .COMPLEX 01/17/23 09/27/23 camphor-methyl salicylate-menthol See Rx Instructions .Route .COMPLEX 02/27/23 09/27/23 topical patch eucalyptus-menthol oral mucosal See Rx Instructions .Route .COMPLEX 02/27/23 09/27/23 lozenge hydroxyzine HCl 25 mg tablet 25 mg PO DAILY PRN Anxiety 02/27/23 09/27/23 oxybutynin chloride 5 mg 5 mg PO DAILY 02/27/23 09/27/23 tablet,extended release 24 hr meloxicam 15 mg tablet 15 mg PO DAILY 09/27/23 09/27/23 Previous Rx's Medication Instructions Recorded albuterol sulfate 90 mcg/actuation 2 inh inhalation Q4H PRN shortness 06/25/22 aerosol inhaler of breath or wheezing #6.7 grams norethindrone (contraceptive) 0.35 0.35 mg PO DAILY #84 tabs 01/25/23 mg tablet nystatin 100,000 unit/gram topical 1 applic topical BID #60 grams 01/26/23 powder acetazolamide 250 mg tablet 250 mg PO EVERY OTHER DAY #14 tabs 03/01/23 cyanocobalamin (vitamin B-12) 1,000 mcg PO DAILY #30 tabs 03/01/23 1,000 mcg tablet levothyroxine 175 mcg capsule 175 mcg PO DAILY #30 caps 03/01/23 gabapentin 600 mg tablet 300 mg (1/2 x 600 mg) PO 03/02/23 TID@08,14,20 #30 tabs sertraline 50 mg tablet 75 mg (1.5 x 50 mg) PO DAILY@08 03/02/23 #30 tabs Antislip Socks #1 ea 03/14/23 Bedside Commode #1 ea 03/14/23 addison lift #1 ea 03/14/23 losartan 25 mg tablet 25 mg PO DAILY #90 tabs 06/08/23 pantoprazole 40 mg tablet,delayed 40 mg PO DAILY #30 tabs 01/01/24 release Allergies Allergy/AdvReac Type Severity Reaction Status Date / Time acetaminophen [From Tylenol] Allergy ALGY-Rash Verified 09/27/23 11:54 aspirin Allergy ALGY-Rash Verified 09/27/23 11:54 azithromycin Allergy ALGY-Rash Verified 09/27/23 11:54 haloperidol [From Haldol] Allergy ADR-Seizure Verified 09/27/23 11:54 tramadol Allergy ADR-Seizure Verified 09/27/23 11:54 ibuprofen AdvReac Mild Unknown Verified 09/27/23 11:54 bee strings Allergy Anaphylaxis Uncoded 09/27/23 11:54 Review of Systems General: Reports: 10 or more systems reviewed and unremarkable except in HPI and below PFSH ED PFSH: Medical History Obesity hypoventilation syndrome Chronic hypoxic respiratory failure Body mass index (BMI) greater than 70 in adult Morbid obesity BMI 80+; has some features of pradar willi syndrome, but states she was tested at [facility] and does not carry formal diagnosis Psychiatric disorder Benign essential HTN Nocturnal enuresis Nocturnal hypoxemia Elevated brain natriuretic peptide (BNP) level Suspected pulmonary embolism diagnosis in early 2021 for which chronic anticoagulation initiated Sleep apnea Sleep study 07/2021 severe sleep apnea with hypoxemia. Sleep titration recommended. Non-invasive ventilator recommended. As of 01/2023 has not had titration study. Bipolar disorder Nocturnal polyuria Fibromyalgia syndrome Congestive heart failure Echo 06/2021: LV systolic function normal with EF of 55 to 60%, mild pulmonary hypertension with RVSP 35-40mmHg Osteoarthritis Hypothyroidism [facility] endocrinology--Dr Haider Depression Surgical History H/O laparoscopy (~2010) treatment of ovarian cysts; performed in [place] History of colonoscopy with polypectomy 2017 History of tonsillectomy and adenoidectomy History of placement of ear tubes History of cholecystectomy 2017-lap History of dental surgery Family History Grandmother Breast cancer Maternal--dx age unknown Diabetes Maternal Hypertension Maternal Mother Breast cancer dx age 40's ; unknown if hormone receptive Thyroid disease Grandfather No problems noted. Sister Thyroid disease Denies family history of Colon cancer Ovarian cancer Hypercholesteremia Uterine cancer Stroke Physical Exam Const: COMMON NORMALS: alert HENMT: COMMON NORMALS: normocephalic HEAD & SCALP: normocephalic Neck/C-Spine: COMMON NORMALS: full ROM Resp: COMMON NORMALS: normal respiratory effort and clear to auscultation bilaterally AUSCULTATION: clear to auscultation bilaterally Cardio: COMMON NORMALS: regular rate and regular rhythm RATE: regular rate RHYTHM: regular rhythm GI: COMMON NORMALS: Soft to palpation and non-tender PALPATION: Yes Soft to palpation Back/Pelvis: COMMON NORMALS: thoracic and lumbar spine normal to inspection Extremity: COMMON NORMALS: full ROM Neuro: SENSORIUM/ORIENTATION: Yes alert Skin: COMMON NORMALS: turgor normal GENERAL SKIN EXAM: turgor normal Course Vital Signs: Vital signs: Vital Signs Temperature 98.2 F 01/01/24 16:43 Pulse Rate 67 01/01/24 16:43 Respiratory Rate 16 01/01/24 16:43 Blood Pressure 150/83 01/01/24 16:43 Pulse Oximetry 93 01/01/24 16:43 Oxygen Delivery Me thod Room Air 01/01/24 16:43 MDM - Chest Pain Medical Decision Making Patient comes in today with complaints of epigastric pain and change in stool. Patient denies any other chronic medical problems. Patient appears nontoxic. Abdomen soft with some epigastric tenderness. Patient is morbidly obese. Vital signs are normal. Differential diagnosis includes peptic ulcer disease, pancreatitis, ACS unlikely, constipation, GI bleed. CBC noted no significant anemia. CMP's had a normal BUN. Creatinine was 1.0. Glucose 118. The patient probably has some gastritis possible peptic ulcer disease. Patient will be started on pantoprazole and switched off famotidine. Patient was recommended to follow-up with them surgeon for endoscopy of her upper and lower GI series. Patient reported understanding of care plan. Laboratory values and EKGs were unremarkable for ACS. Lab Data 01/01/24 16:49 01/01/24 16:49 Radiology Impressions Chest X-Ray 01/01/24 16:39 IMPRESSION: No acute findings. Laboratory Results WBC 9.45 10^3/uL (3.29-11.43) 01/01/24 16:49 RBC 4.31 10^6/uL (3.85-5.65) 01/01/24 16:49 Hgb 13.90 g/dL (11.27-16.99) 01/01/24 16:49 Hct 48.4 % (36-47) H 01/01/24 16:49 MCV 112.3 fl (85-98) H 01/01/24 16:49 MCH 32.3 pg (27-33) 01/01/24 16:49 MCHC 28.7 g/dL (30-55) L 01/01/24 16:49 RDW 12.6 % (12.1-15.1) 01/01/24 16:49 Plt Count 214 10^3/cmm (157-399) 01/01/24 16:49 MPV 11.0 fL (7.4-10.4) H 01/01/24 16:49 Neut % (Auto) 63.2 % 01/01/24 16:49 Lymph % (Auto) 27.7 % 01/01/24 16:49 [place] % (Auto) 5.4 % 01/01/24 16:49 Eos % (Auto) 2.4 % 01/01/24 16:49 Baso % (Auto) 1.0 % 01/01/24 16:49 Neut # (Auto) 5.97 10^3/uL (1.8-7.7) 01/01/24 16:49 Lymph # (Auto) 2.6 10^3/uL (0.8-4.8) 01/01/24 16:49 [place] # (Auto) 0.5 10^3/uL (0.2-0.9) 01/01/24 16:49 Eos # (Auto) 0.2 10^3/uL (0.0-0.8) 01/01/24 16:49 Baso # (Auto) 0.1 10^3/uL (0.0-0.1) 01/01/24 16:49 Nucleated RBC % (auto) 0 % 01/01/24 16:49 Nucleated RBCs # 0.0 /100WBC 01/01/24 16:49 Sodium 136 mmol/L (136-145) 01/01/24 16:49 Potassium 4.3 mmol/L (3.5-5.1) 01/01/24 16:49 Chloride 102 mmol/L (98-107) 01/01/24 16:49 Carbon Dioxide 22 mmol/L (22-29) 01/01/24 16:49 Anion Gap 16.3 (5-19) 01/01/24 16:49 BUN 24 mg/dL (6-20) H 01/01/24 16:49 Creatinine 1.0 mg/dL (0.5-0.9) H 01/01/24 16:49 GFR Calculation 62.1 mL/min (90-130) L 01/01/24 16:49 Glucose 118 mg/dL (65-115) H 01/01/24 16:49 Calculated Osmolality 287 mOsm/kg (285-295) 01/01/24 16:49 Calcium 8.6 mg/dL (8.5-10.5) 01/01/24 16:49 Total Bilirubin 0.2 mg/dL (0.15-1.2) 01/01/24 16:49 AST 16 U/L (0-32) 01/01/24 16:49 ALT 12 U/L (0-33) 01/01/24 16:49 Alkaline Phosphatase 145 U/L (35-105) H 01/01/24 16:49 Troponin T Baseline 9 ng/L (0-10) 01/01/24 16:49 Total Protein 7.1 g/dL (6.6-8.7) 01/01/24 16:49 Albumin 3.8 g/dL (3.5-5.2) 01/01/24 16:49 Globulin 3.3 g/dL (1.3-4.6) 01/01/24 16:49 Urine Color Yellow (Yellow) 01/01/24 17:48 Urine Appearance Clear (CLEAR) 01/01/24 17:48 Urine pH 6.0 (5-7) 01/01/24 17:48 Ur Specific [place] 1.018 (1.005-1.030) 01/01/24 17:48 Urine Protein Negative (Negative) 01/01/24 17:48 Urine Glucose (UA) Negative (Normal) 01/01/24 17:48 Urine Ketones Negative (Negative) 01/01/24 17:48 Urine Blood Negative (Negative) 01/01/24 17:48 Urine Nitrate Negative (Negative) 01/01/24 17:48 Urine Bilirubin Negative (Negative) 01/01/24 17:48 Urine Urobilinogen 0.2 mg/dL (Negative) 01/01/24 17:48 Ur Leukocyte Esterase Negative (Negative) 01/01/24 17:48 Urine RBC 0-2 /hpf (0-2) 01/01/24 17:48 Urine WBC 0-5 /hpf (0-5) 01/01/24 17:48 Ur Squamous Epith Cells 0-5 /hpf (0-5) 01/01/24 17:48 Urine Bacteria None seen /hpf (NONE) 01/01/24 17:48 Hyaline Casts 0-4 /lpf H 01/01/24 17:48 All radiology interpretation(s) finalized by discharge EKG Data EKG 2: I personally reviewed and interpreted this EKG as follows: EKG interpretation date: 01/01/24 EKG interpretation time: 19:00 Interpretation: EKG shows a sinus rhythm with a regular rate at [address] elevation or ectopy is noted. No prior exam was available for immediate comparison. Computer generated interpretation: Sinus rhythm. Possible right ventricular conduction delay. Nonspecific T wave abnormality. Abnormal EKG. Unconfirmed report. Discharge Plan Discharge Patient Disposition: Home Clinical Impression: Epigastric abdominal pain, Black tarry stools Condition: Stable Prescriptions: New pantoprazole 40 mg tablet,delayed release (DR/EC) 40 mg PO DAILY Qty: 30 0RF No Action Eucerin Cream 1 applic topical BID PRN (Reason: unknown) (DME) Bedside Commode See Rx Instructions .Route .MEDSUPPLY Qty: 1 0RF Rx Instructions: due to patient needing to remain NWB besides heel transferring to utilize facility. (DME) Antislip Socks See Rx Instructions .Route .MEDSUPPLY Qty: 1 0RF Rx Instructions: As directed (DME) addison lift See Rx Instructions .Route .MEDSUPPLY Qty: 1 0RF Rx Instructions: As directed norethindrone (contraceptive) 0.35 mg tablet 0.35 mg PO DAILY Qty: 84 3RF nystatin 100,000 unit/gram powder 1 applic topical BID Qty: 60 6RF meloxicam 15 mg tablet 15 mg PO DAILY losartan 25 mg tablet 25 mg PO DAILY Qty: 90 3RF loperamide 2 mg Capsule 2 mg PO Q8H PRN (Reason: Diarrhea) oxcarbazepine 300 mg Tablet 300 mg PO BID@08,20 dicyclomine 10 mg Capsule 10 mg PO TID PRN (Reason: Abdominal Discomfort) cetirizine 10 mg Tablet 10 mg PO DAILY@08 famotidine 20 mg Tablet 20 mg PO DAILY@08 fluticasone propionate 50 mcg/actuation [place],Suspension 1 spray INTRANASAL DAILY@14 bupropion HCl 300 mg Tablet Extended Release 24 Hr 300 mg PO DAILY@08 potassium chloride 20 mEq Tablet Extended Release 20 meq PO DAILY@08 ergocalciferol (vitamin D2) [Vitamin D2] 1,250 mcg (50,000 unit) capsule 50,000 unit PO Q7D Rx Instructions: on TUESDAY Eliquis 5 mg tablet 5 mg PO BID@08,20 furosemide 40 mg tablet 40 mg PO DAILY@08 Neosporin (rpa-qhp-unyka) 3.5mg-400 unit- 5,000 unit/gram Ointment 1 applic TOPICAL BID PRN (Reason: unknown) epinephrine [EpiPen 2-Norm] 0.3 mg/0.3 mL Auto-Injector 0.3 mg IM Q4H PRN (Reason: Allergic Reaction) lidocaine 5 % Adhesive Patch,Medicated 1 patch TOPICAL DAILY Rx Instructions: leave on most painful area for up to 12 hrs menthol Gel 1 applic TOPICAL BID PRN (Reason: JOINT PAIN) calcium carbonate-vitamin D3 [Calcium 600 + D(3)] 600 mg-10 mcg (400 unit) Tablet 1 tab PO DAILY Probiotic 3 billion cell Capsule 3,000 mmu cells PO DAILY Rx Instructions: administer with a meal oxybutynin chloride 5 mg tablet extended release 24hr 5 mg PO DAILY hydroxyzine HCl 25 mg Tablet 25 mg PO DAILY PRN (Reason: Anxiety) eucalyptus-menthol Lozenge See Rx Instructions .ROUTE .COMPLEX Rx Instructions: DISSOLVE 1 LOZENGE BY MOUTH EVERY HOUR NEEDED camphor-methyl salicyl-menthol Adhesive Patch,Medicated See Rx Instructions .ROUTE .COMPLEX Rx Instructions: Apply 1 patch topically and change as needed for sciatic pain. cyanocobalamin (vitamin B-12) 1,000 mcg tablet 1,000 mcg PO DAILY Qty: 30 0RF levothyroxine 175 mcg capsule 175 mcg PO DAILY Qty: 30 0RF acetazolamide 250 mg Tablet 250 mg PO EVERY OTHER DAY Qty: 14 0RF gabapentin 600 mg Tablet 300 mg PO TID@08,14,20 Qty: 30 0RF sertraline 50 mg Tablet 75 mg PO DAILY@08 Qty: 30 0RF albuterol sulfate 90 mcg/actuation HFA aerosol inhaler 2 inh inhalation Q4H PRN (Reason: shortness of breath or wheezing) Qty: 6.7 1RF furosemide 20 mg tablet See Rx Instructions .ROUTE .COMPLEX Rx Instructions: 20 mg orally at noon diclofenac sodium 1 % gel 4.5 inch TOPICAL QID PRN (Reason: Pain) ciclopirox 0.77 % cream 1 applic topical BID PRN (Reason: Rash) Rx Instructions: Apply to red areas twice a day, as needed. aripiprazole 10 mg tablet 10 mg PO DAILY Discharge Orders: Discharge ED (Routine); Ordered 01/01/24 Ordered By: Brandan Walters Referrals: Fern Aguilar FNP [Primary Care Provider] - Discharge Diet: Usual diet Discharge Activity: Increase activity as tolerated Patient Instructions: Abdominal Pain (ED) Activity Restrictions/Additional Instructions: You will need to follow-up with surgeon for endoscopy to evaluate your stomach and your colon for the blood in your stool. Start taking pantoprazole to help with your pain. Follow-up with primary care for further structure and support. Return to ED for worsening symptoms such as high fever, or feeling like you are going to pass out. Coding Level of Care Code ED Furniture And Bedding Inspector for Luis Carlos Lee
[2024-01-01 17:20] LABS: Alanine Aminotransferase 12 U/L (0-33); Albumin Level 3.8 g/dL (3.5-5.2); Alkaline Phosphatase 145 U/L (35-105); Aspartate Amino Transferase 16 U/L (0-32); Blood Urea Nitrogen 24 mg/dL (6-20); Calcium 8.6 mg/dL (8.5-10.5); Carbon Dioxide 22 mmol/L (22-29); Chloride 102 mmol/L (98-107); Creatinine Clr Calc Pharmacy 121.5833; Globulin 3.3 g/dL (1.3-4.6); Glomerular Filtration Rate 62.1 mL/min (90-130); Glucose 118 mg/dL (65-115); Osmolality Calculated 287 mOsm/kg (285-295); Sodium 136 mmol/L (136-145); Total Bilirubin 0.2 mg/dL (0.15-1.2); Total Protein 7.1 g/dL (6.6-8.7)
[2024-01-01 17:22] LABS: Anion Gap 16.3 (5-19); Potassium 4.3 mmol/L (3.5-5.1)
[2024-01-01 18:23] LABS: Bacteria Urine None Seen /hpf; Hyaline Casts Urine 0-4 /lpf; RBC Urine 0-2 /hpf (0-2); Squamous Epithelial Cell Urine 0-5 /hpf (0-5); WBC Urine 0-5 /hpf (0-5)
[2024-01-01 18:28] LABS: Add Urine Microscopic? YES; Bilirubin Urine Negative (Negative); Blood Urine Negative (Negative); Glucose Urine UA Negative (Normal); Ketones Urine Negative (Negative); Leukocyte Esterase Urine Negative (Negative); Nitrate Urine Negative (Negative); Protein Urine Negative (Negative); Specific Gravity, Urine 1.018 (1.005-1.030); Urine Appearance Clear (CLEAR); Urine Color Yellow (Yellow); Urobilinogen Urine 0.2 mg/dL (Negative)
--- NOTE | 2024-01-01 18:39 | ECG_ITS ---
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 Measurements Intervals [place] Rate: 68 P: 41 [place]: 173 QRS: 66 QRSD: 122 T: -1 QT: 398 QTc: 424 Interpretive Statements SINUS RHYTHM POSSIBLE RIGHT VENTRICULAR CONDUCTION DELAY [RSR (QR) IN V1/V2] NONSPECIFIC T-WAVE ABNORMALITY Compared to ECG 01/01/2024 16:37:29 No significant changes Electronically Signed On 01-02-2024 18:56:22 CDT by Ilan Santana M.D. [id number]
[2024-01-01] MEDS: pantoprazole DR 40 mg Tablet PO (18:55)
[2024-01-01 18:59] VITALS: BP 110/73; PULSE 98; O2SAT 95
--- NOTE | 2024-01-02 08:17 | DCPLANNER ---
messaged gen surg for er f/u
== END 2024-01-01 19:00 | disposition home or self-care (01) ==
PROVIDERS: Emergency Medicine; Emergency Provider Nurse Practitioner Family; PCP Nurse Practitioner Family
DX: R10.13 Epigastric pain (principal); R19.5 Other fecal abnormalities; Z79.01 Long term (current) use of anticoagulants; I11.0 Hypertensive heart disease with heart failure; I50.9 Heart failure, unspecified
CPT/HCPCS: 71045; 80053; 81001; 84484; 85025; 93005; 99285

== ENCOUNTER → 2024-01-05 09:45 | Outpatient (BNVA) | payer MEDICAID, SELFPAY | PROVIDERS: PCP Nurse Practitioner Family; Referring Provider Nurse Practitioner Family; Visit Provider Surgery | DX: K92.2 Gastrointestinal hemorrhage, unspecified (principal); K21.9 Gastro-esophageal reflux disease without esophagitis; K59.00 Constipation, unspecified; R10.13 Epigastric pain | CPT/HCPCS: 99204; 99213; 99214 ==

== ENCOUNTER 2024-01-25 09:24 | Day surgery (SDC) | payer MEDICAID, SELFPAY ==
--- NOTE | 2024-01-25 10:15 | ANES.PREANE2 ---
Pre-Anesthetic Assessment Height/Weight: Height 1.65 m Operation Date: 01/25/24 11:15 Proposed Procedures p EGD 21717, 58851, G0105, K92.2, K21.9(Not Applicable) - DO [place] Colonoscopy(Not Applicable) - Albert Roman DO Familial anesthetic complications: None Was Beta Brandan taken within 24 hours: N/A Was Clonidine taken within 24 hours: N/A Last intake: > 8hrs Social Tobacco (vapes) and No alcohol Exam alert, oriented x 3, clear to auscultation bilaterally and regular rate & rhythm Airway Dentition: other (patient states full dentition, visual inspection reveals some, including upper front, are missing and rotting/black) Pulmonary Sleep Apnea (CPAP at night) States no longer has to wear O2 NC during the day CV/HEM Congestive Heart Failure (hx CHF exacerbation, states no further issues or symptoms since that one episode. Echo from that time non-diagnostic) and Hypertension Metabolic Morbid Obesity and Thyroid Disease Neuropsych Bipolar Anesthetic Plan ASA status: 4 Anesthesia: MAC Risk of > 500 ml blood loss (7ml/kg in children): No Medications/Allergies Home Medications Medication Instructions Recorded Confirmed Last Taken Type bupropion HCl 300 mg 24 hr tablet, 300 mg PO DAILY@02/16/20 01/24/24 01/24/24 History extended release cetirizine 10 mg tablet 10 mg PO DAILY@02/16/20 01/24/24 01/24/24 History famotidine 20 mg tablet 20 mg PO DAILY@02/16/20 01/24/24 01/24/24 History fluticasone propionate 50 1 spray intranasal DAILY@02/16/20 01/24/24 01/24/24 History mcg/actuation nasal spray,suspension potassium chloride 20 mEq 20 meq PO DAILY@02/16/20 01/24/24 01/24/24 History tablet,extended release dicyclomine 10 mg capsule 10 mg PO TID PRN Abdominal 06/15/21 01/24/24 Unknown History Discomfort loperamide 2 mg capsule 2 mg PO Q8H PRN Diarrhea 06/15/21 01/24/24 06/14/21 History oxcarbazepine 300 mg tablet 300 mg PO TID 06/15/21 01/24/24 01/24/24 History apixaban 5 mg tablet (Eliquis) 5 mg PO BID@08,20 11/26/21 01/24/24 01/22/24 History epinephrine 0.3 mg/0.3 mL 0.3 mg IM Q4H PRN Allergic Reaction 11/26/21 01/24/24 Unknown History injection, auto-injector (EpiPen 2-Norm) ergocalciferol (vitamin D2) 1,250 50,000 unit PO Q7D 11/26/21 01/24/24 01/21/24 History mcg (50,000 unit) capsule (Vitamin D2) furosemide 40 mg tablet 40 mg PO DAILY@08 11/26/21 01/24/24 01/24/24 History neomycin-bacitracn Zn-polymyx 3.5 1 applic topical BID PRN unknown 11/26/21 01/24/24 Unknown History mg-400 unit-5,000 unit/gram top oint (Neosporin (nkt-[id number])) calcium 600 mg (as 1 tab PO DAILY 02/12/22 01/24/24 01/24/24 History carbonate)-vitamin D3 10 mcg (400 unit) tablet (Calcium 600 + D(3)) lactobacillus combination no.4 3 3,000 mmu cells PO DAILY 02/12/22 01/24/24 01/24/24 History billion cell capsule (Probiotic) lidocaine 5 % topical patch 1 patch topical DAILY 02/12/22 01/24/24 01/24/24 History menthol 1 applic topical BID PRN JOINT PAIN 02/12/22 01/24/24 02/15/23 History albuterol sulfate 90 mcg/actuation 2 inh inhalation Q4H PRN shortness 06/25/22 01/24/24 Unknown Rx aerosol inhaler of breath or wheezing #6.7 grams aripiprazole 10 mg tablet 10 mg PO DAILY 01/17/23 01/24/24 01/24/24 History ciclopirox 0.77 % topical cream 1 applic topical BID PRN Rash 01/17/23 01/24/24 Unknown History diclofenac sodium 1 % topical gel 4.5 inch topical QID PRN Pain 01/17/23 01/24/24 Unknown History furosemide 20 mg tablet 20 mg PO .@NOON 01/17/23 01/24/24 01/24/24 History norethindrone (contraceptive) 0.35 0.35 mg PO DAILY #84 tabs 01/25/23 01/24/24 01/24/24 Rx mg tablet camphor-methyl salicylate-menthol See Rx Instructions .Route .COMPLEX 02/27/23 01/24/24 Unknown History topical patch eucalyptus-menthol oral mucosal 1 [place] mucous membrane Q1H PRN Sore 02/27/23 01/24/24 Unknown History lozenge Throat hydroxyzine HCl 25 mg tablet 25 mg PO BEDTIME Anxiety 02/27/23 01/24/24 01/24/24 History oxybutynin chloride 5 mg 5 mg PO DAILY 02/27/23 01/24/24 01/24/24 History tablet,extended release 24 hr acetazolamide 250 mg tablet 250 mg PO EVERY OTHER DAY #14 tabs 03/01/23 01/24/24 01/24/24 Rx cyanocobalamin (vitamin B-12) 1,000 mcg PO DAILY #30 tabs 03/01/23 01/24/24 01/24/24 Rx 1,000 mcg tablet levothyroxine 175 mcg capsule 175 mcg PO DAILY #30 caps 03/01/23 01/24/24 01/24/24 Rx gabapentin 600 mg tablet 300 mg (1/2 x 600 mg) PO 03/02/23 01/24/24 01/24/24 Rx TID@08,14,20 #30 tabs [place] #1 ea 03/14/23 01/24/24 01/24/24 Rx Bedside Commode #1 ea 03/14/23 01/24/24 01/24/24 Rx addison lift #1 ea 03/14/23 01/24/24 01/24/24 Rx losartan 25 mg tablet 25 mg PO DAILY #90 tabs 06/08/23 01/24/24 01/24/24 Rx meloxicam 15 mg tablet 15 mg PO DAILY 09/27/23 01/24/24 01/24/24 History pantoprazole 40 mg tablet,delayed 40 mg PO BID 6 weeks #84 tabs 01/05/24 01/24/24 01/24/24 Rx release (Protonix) polyethylene glycol 3350 17 17 g PO DAILY 1 month #510 grams 01/05/24 01/24/24 01/24/24 Rx gram/dose oral powder (Miralax) CPAP 01/24/24 01/24/24 01/24/24 History lanolin alcohols-mineral 1 applic topical BID PRN Outbreak 01/24/24 01/24/24 Unknown History oil-w.petrolatum-ceresin topical cream (Eucerin topical cream) nystatin 100,000 unit/gram topical 1 applic topical BID PRN Outbreak 01/24/24 01/24/24 Unknown History powder olopatadine 0.2 % eye drops 1 drp ophthalmic (eye) DAILY PRN 01/24/24 01/24/24 Unknown History Dry Eyes sertraline 100 mg tablet 300 mg PO DAILY@0800 01/24/24 01/24/24 01/24/24 History Allergies Allergy/AdvReac Type Severity Reaction Status Date / Time acetaminophen [From Tylenol] Allergy ALGY-Rash Verified 01/25/24 10:16 aspirin Allergy ALGY-Rash Verified 01/25/24 10:16 azithromycin Allergy ALGY-Rash Verified 01/25/24 10:16 haloperidol [From Haldol] Allergy ADR-Seizure Verified 01/25/24 10:16 tramadol Allergy ADR-Seizure Verified 01/25/24 10:16 ibuprofen AdvReac Mild Unknown Verified 01/25/24 10:16 bee strings Allergy Anaphylaxis Uncoded 01/25/24 10:16 [facility] Anesthesia Medical History Obesity hypoventilation syndrome Chronic hypoxic respiratory failure Body mass index (BMI) greater than 70 in adult Morbid obesity BMI 80+; has some features of pradar willi syndrome, but states she was tested at [facility] and does not carry formal diagnosis Psychiatric disorder Benign essential HTN Nocturnal enuresis Nocturnal hypoxemia Elevated brain natriuretic peptide (BNP) level Suspected pulmonary embolism diagnosis in early 2021 for which chronic anticoagulation initiated Sleep apnea Sleep study 07/2021 severe sleep apnea with hypoxemia. Sleep titration recommended. Non-invasive ventilator recommended. As of 01/2023 has not had titration study. Bipolar disorder Nocturnal polyuria Fibromyalgia syndrome Congestive heart failure Echo 06/2021: LV systolic function normal with EF of 55 to 60%, mild pulmonary hypertension with RVSP 35-40mmHg Osteoarthritis Hypothyroidism [facility] endocrinology--Dr Haider Depression Surgical History H/O laparoscopy (~2010) treatment of ovarian cysts; performed in [place] History of colonoscopy with polypectomy 2018 History of tonsillectomy and adenoidectomy History of placement of ear tubes History of cholecystectomy 2017-lap History of dental surgery Family History Grandmother Breast cancer Maternal--dx age unknown Diabetes Maternal Hypertension Maternal Mother Breast cancer dx age 40's ; unknown if hormone receptive Thyroid disease Grandfather No problems noted. Sister Thyroid disease Denies family history of Colon cancer Ovarian cancer Hypercholesteremia Uterine cancer Stroke Social History Smoking and tobacco/nicotine status: current every day tobacco/nicotine user Female Reproductive History Date of last menstrual period: 11/15/23 Data Anesthesia Cardiac Studies: Echocardiogram 02/28/23
[2024-01-25 10:19] VITALS: BP 118/64; PULSE 67; RESP 18; TEMP 36.6; O2SAT 95
[2024-01-25 10:20] VITALS: BMI 61.9
[2024-01-25] MEDS: sodium chloride 0.9% 1,000 ML 30 ML IV (10:39)
--- NOTE | 2024-01-25 10:59 | W.PM.OPSUD ---
Surgery/Procedure H&P Update DATE OF PROCEDURE: January 25, 2024 DATE H&P PERFORMED: 01/05/24 H&P UPDATE INFORMATION: I have reviewed H&P completed within last 30 days, I have examined patient prior to procedure and No changes to prior documentation PLANNED PROCEDURE: Operation Date: 01/25/24 11:15 Proposed Procedures p EGD 98087, 64029, G0105, K92.2, K21.9(Not Applicable) - DO [place] Colonoscopy(Not Applicable) - Albert Roman DO
[2024-01-25 11:02] LABS: HCG, Serum Qual Negative (Negative)
[2024-01-25 11:38] VITALS: BP 118/66; PULSE 73; RESP 16; TEMP 36.2; O2SAT 100
[2024-01-25 11:43] VITALS: BP 149/72; PULSE 77; RESP 20; O2SAT 96
[2024-01-25 11:53] VITALS: BP 133/63; PULSE 70; RESP 20; O2SAT 98
--- NOTE | 2024-01-25 12:20 | ANE.PACU2 ---
Inpatient post-anesthesia follow up: Airway intact: Yes Vital signs: Temperature 97.1 F Pulse Rate 70 Respiratory Rate 20 Blood Pressure 133/63 Pulse Oximetry 98 Oxygen Delivery Me thod Room Air Oxygen Flow Rate 6 Fraction of Inspir ed Oxygen Hydration adequate: Yes Nausea and vomiting: No Pain level: 1 Mental status: Baseline
== END 2024-01-25 12:25 | disposition home or self-care (01) ==
PROVIDERS: Anesthesiology; PCP Nurse Practitioner Family; Visit Provider Surgery
PROC: 0DJ08ZZ Inspection of Upper Intestinal Tract, Via Natural or Artificial Opening Endoscopic (ICD-10-PCS; CPT 43235; principal; 2024-01-25 11:15)
PROC: 0DJD8ZZ Inspection of Lower Intestinal Tract, Via Natural or Artificial Opening Endoscopic (ICD-10-PCS; CPT 45378; 2024-01-25 11:15)
DX: K29.70 Gastritis, unspecified, without bleeding (principal); K21.9 Gastro-esophageal reflux disease without esophagitis; F17.200 Nicotine dependence, unspecified, uncomplicated; G47.30 Sleep apnea, unspecified; Z99.89 Dependence on other enabling machines and devices; I11.0 Hypertensive heart disease with heart failure; I50.9 Heart failure, unspecified; E66.01 Morbid (severe) obesity due to excess calories; Z68.44 Body mass index [BMI] 60.0-69.9, adult; E03.9 Hypothyroidism, unspecified; M19.90 Unspecified osteoarthritis, unspecified site
CPT/HCPCS: 36415; 43239; 45378; 84703; 88305; 88309; J2704; J7030

== ENCOUNTER → 2024-02-13 10:35 | Outpatient (BNVA) | payer MEDICAID, SELFPAY | PROVIDERS: PCP Nurse Practitioner Family; Visit Provider Surgery | DX: Z09 Encounter for follow-up examination after completed treatment for conditions other than malignant neoplasm (principal); K21.9 Gastro-esophageal reflux disease without esophagitis; R19.8 Other specified symptoms and signs involving the digestive system and abdomen | CPT/HCPCS: 99214 ==

== ENCOUNTER 2024-03-11 14:59 | Emergency (ER) | payer MEDICAID, SELFPAY ==
[2024-03-11] VITALS (10 sets, daily range): BP systolic 111–142; BP diastolic 67–89; PULSE 59–72; RESP 17–18; TEMP 36.9; O2SAT 85–100; BMI 63.1
--- NOTE | 2024-03-11 15:01 | XRR_ITS ---
PROCEDURE INFORMATION: Exam: XR Chest Exam date and time: 03/11/2024 3:21 PM Age: 39 years old Clinical indication: Pain; Chest pressure; Additional info: Xp TECHNIQUE: Imaging protocol: Radiologic exam of the chest. Views: 1 view. COMPARISON: CR (CHEST, ) 01/01/2024 4:51 PM FINDINGS: Lungs: Unremarkable. No consolidation. Pleural spaces: Unremarkable. No pleural effusion. No pneumothorax. Heart/Mediastinum: Unremarkable. No cardiomegaly. Bones/joints: Unremarkable. XR/XR chest 1V portable [id number] IMPRESSION: No acute radiographic findings.
--- NOTE | 2024-03-11 15:01 | ECG_ITS ---
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: : 1985 Requested By: Waleska Starr Order Number: [id number] Reading MD: CHEL DANIEL Measurements Intervals [place] Rate: 60 P: 27 AK: 146 QRS: 67 QRSD: 114 T: 13 QT: 389 QTc: 391 Interpretive Statements SINUS RHYTHM LOW QRS VOLTAGE IN PRECORDIAL LEADS [QRS DEFLECTION < 1.0 mV IN CHEST LEADS] INCOMPLETE RIGHT BUNDLE BRANCH BLOCK [90+ ms QRS DURATION, TERMINAL R IN V1/V2, 40+ ms S IN I/aVL/V4/V5/V6] NONSPECIFIC T-WAVE ABNORMALITY Compared to ECG 01/01/2024 18:42:19 Low QRS voltage now present Incomplete right bundle-branch block now present T-wave abnormality still present Electronically Signed On 03-12-2024 16:08:13 CATH LAB RADIOLOGY TECHNICIAN by CHEL DANIEL [email or web address]
--- NOTE | 2024-03-11 15:02 | ED_ITS ---
Documented by User: Kalpesh Booth, 03/12/24 10:27 HPI - Chest Pain 2 General: Chief Complaint: Chest Pain Stated Complaint: CHEST PAIN Time Seen by Provider: 03/11/24 15:02 History of Present Illness: 39-year-old female presents emergency ro om with chest pain side of her chest this phenomenon for the last couple of days. She notes is exacerbated by deep breath. It is reproducible during exam both by palpation and deep breathing. States it radiates into her back she complaining of a bit of a headache as well. Echocardiogram in June 2021 showed an EF of 55 to 60% and attempted repeat echocardiogram in February 2023 was still technically difficult evidently could not be read due to patient's body habitus. Patient has severe sleep apnea as well. She is complaining of some weakness on her right side. Abbreviated NIH exam shows no lateralizing findings. Patient is on Eliquis. She was uncertain of reason reviewing the chart it appears that at 1 point there was a concern for PE there was some right heart strain the CTA could not be adequately read because of poor quality of the study. According to discharge summary they had defaulted because of the possibility of PE and put her on Eliquis. I cannot find in the chart any indication that she is ever been known to have atrial fibrillation in the past. Patient was briefly off of her Eliquis recently for colonoscopy. Associated symptoms: Deny abdominal pain, dyspnea or fever(s) Related Data Home Medications Medication Instructions Recorded Confirmed bupropion HCl 300 mg 24 hr tablet, 300 mg PO DAILY@02/16/20 03/11/24 extended release cetirizine 10 mg tablet 10 mg PO DAILY@02/16/20 03/11/24 fluticasone propionate 50 1 spray intranasal DAILY@02/16/20 03/11/24 mcg/actuation nasal spray,suspension potassium chloride 20 mEq 20 meq PO DAILY@02/16/20 03/11/24 tablet,extended release oxcarbazepine 300 mg tablet 300 mg PO TID 06/15/21 03/11/24 apixaban 5 mg tablet (Eliquis) 5 mg PO BID@,11/26/21 03/11/24 epinephrine 0.3 mg/0.3 mL 0.3 mg IM Q4H PRN Allergic Reaction 11/26/21 03/11/24 injection, auto-injector (EpiPen 2-Norm) ergocalciferol (vitamin D2) 1,250 50,000 unit PO Q7D 11/26/21 03/11/24 mcg (50,000 unit) capsule (Vitamin D2) furosemide 40 mg tablet 40 mg PO DAILY@08 11/26/21 03/11/24 neomycin-bacitracn Zn-polymyx 3.5 1 applic topical BID PRN unknown 11/26/21 03/11/24 mg-400 unit-5,000 unit/gram top oint (Neosporin (agt-orm-fokzb)) calcium 600 mg (as 1 tab PO DAILY 02/12/22 03/11/24 carbonate)-vitamin D3 10 mcg (400 unit) tablet (Calcium 600 + D(3)) lactobacillus combination no.4 3 3,000 mmu cells PO DAILY 02/12/22 03/11/24 billion cell capsule (Probiotic) lidocaine 5 % topical patch 1 patch topical DAILY 02/12/22 03/11/24 menthol 1 applic topical BID PRN JOINT PAIN 02/12/22 03/11/24 aripiprazole 10 mg tablet 10 mg PO DAILY 01/17/23 03/11/24 ciclopirox 0.77 % topical cream 1 applic topical BID PRN Rash 01/17/23 03/11/24 furosemide 20 mg tablet 20 mg PO .@NOON 01/17/23 03/11/24 camphor-methyl salicylate-menthol See Rx Instructions .Route .COMPLEX 02/27/23 03/11/24 topical patch eucalyptus-menthol oral mucosal 1 shelby mucous membrane Q1H PRN Sore 02/27/23 03/11/24 lozenge Throat hydroxyzine HCl 25 mg tablet 25 mg PO BEDTIME Anxiety 02/27/23 03/11/24 oxybutynin chloride 5 mg 5 mg PO DAILY 02/27/23 03/11/24 tablet,extended release 24 hr meloxicam 15 mg tablet 15 mg PO DAILY 09/27/23 03/11/24 CPAP 01/24/24 03/11/24 lanolin alcohols-mineral 1 applic topical BID PRN Outbreak 01/24/24 03/11/24 oil-w.petrolatum-ceresin topical cream (Eucerin topical cream) sertraline 100 mg tablet 300 mg PO DAILY@0800 01/24/24 03/11/24 Previous Rx's Medication Instructions Recorded albuterol sulfate 90 mcg/actuation 2 inh inhalation Q4H PRN shortness 06/25/22 aerosol inhaler of breath or wheezing #6.7 grams acetazolamide 250 mg tablet 250 mg PO EVERY OTHER DAY #14 tabs 03/01/23 cyanocobalamin (vitamin B-12) 1,000 mcg PO DAILY #30 tabs 03/01/23 1,000 mcg tablet levothyroxine 175 mcg capsule 175 mcg PO DAILY #30 caps 03/01/23 gabapentin 600 mg tablet 300 mg (1/2 x 600 mg) PO 03/02/23 TID@08,14,20 #30 tabs Antislip Socks #1 ea 03/14/23 Bedside Commode #1 ea 03/14/23 addison lift #1 ea 03/14/23 losartan 25 mg tablet 25 mg PO DAILY #90 tabs 06/08/23 pantoprazole 40 mg tablet,delayed 40 mg PO BID 6 weeks #84 tabs 01/05/24 release (Protonix) pantoprazole 40 mg tablet,delayed 40 mg PO BID 6 weeks #84 tabs 01/25/24 release norethindrone (contraceptive) 0.35 0.35 mg PO DAILY #84 tabs 01/31/24 mg tablet methylprednisolone 4 mg tablets in See Rx Instructions PO .COMPLEX 03/11/24 a dose pack (Medrol (Norm)) #21 ea Allergies Allergy/AdvReac Type Severity Reaction Status Date / Time acetaminophen [From Tylenol] Allergy ALGY-Rash Verified 01/31/24 09:02 aspirin Allergy ALGY-Rash Verified 01/31/24 09:02 azithromycin Allergy ALGY-Rash Verified 01/31/24 09:02 bee venom protein (honey bee) Allergy ALGY-Anaphy Verified 01/31/24 13:38 laxis haloperidol [From Haldol] Allergy ADR-Seizure Verified 01/31/24 09:02 tramadol Allergy ADR-Seizure Verified 01/31/24 09:02 ibuprofen AdvReac Mild Unknown Verified 01/31/24 09:02 Review of Systems 2 Const: Denies: fever(s) or chills Card: Denies: chest pain Resp: Denies: dyspnea GI: Denies: abdominal pain : Denies: dysuria, urinary frequency or urinary urgency Musc: Denies: neck pain or back pain Skin/Breast: Denies: rash PFSH ED 2 PFSH: Medical History Obesity hypoventilation syndrome Chronic hypoxic respiratory failure Body mass index (BMI) greater than 70 in adult Morbid obesity BMI 80+; has some features of pradar willi syndrome, but states she was tested at [facility] and does not carry formal diagnosis Psychiatric disorder Benign essential HTN Nocturnal enuresis Nocturnal hypoxemia Elevated brain natriuretic peptide (BNP) level Suspected pulmonary embolism diagnosis in early 2021 for which chronic anticoagulation initiated Sleep apnea Sleep study 07/2021 severe sleep apnea with hypoxemia. Sleep titration recommended. Non-invasive ventilator recommended. As of 01/2023 has not had titration study. Bipolar disorder Nocturnal polyuria Fibromyalgia syndrome Congestive heart failure Echo 06/2021: LV systolic function normal with EF of 55 to 60%, mild pulmonary hypertension with RVSP 35-40mmHg Osteoarthritis Hypothyroidism [facility] endocrinology--Dr Haider Depression Surgical History H/O laparoscopy (~2010) treatment of ovarian cysts; performed in [place] History of colonoscopy with polypectomy 2018 History of tonsillectomy and adenoidectomy History of placement of ear tubes History of cholecystectomy 2017-lap History of dental surgery Family History Grandmother Breast cancer Maternal--dx age unknown Diabetes Maternal Hypertension Maternal Mother Breast cancer dx age 40's ; unknown if hormone receptive Thyroid disease Grandfather No problems noted. Sister Thyroid disease Denies family history of Colon cancer Ovarian cancer Hypercholesteremia Uterine cancer Stroke Social History Smoking and tobacco/nicotine status: current every day tobacco/nicotine user Physical Exam 2 Const: GENERAL APPEARANCE: cooperative NUTRITIONAL APPEARANCE: obese morbidly obese ORIENTATION/CONSCIOUSNESS: Yes awake, Yes oriented to person, Yes oriented to place and Yes oriented to time HENMT: COMMON NORMALS: normocephalic, atraumatic and hearing grossly normal bilaterally HEAD & SCALP: normocephalic and atraumatic Resp: COMMON NORMALS: normal respiratory effort, No retractions, No use of accessory muscles and clear to auscultation bilaterally AUSCULTATION: clear to auscultation bilaterally Cardio: COMMON NORMALS: regular rate, regular rhythm and No murmurs present (Cardio) RATE: regular rate RHYTHM: regular rhythm GI: COMMON NORMALS: Soft to palpation and No hepatosplenomegaly present A USCULTATION: Yes normoactive bowel sounds PALPATION: Yes Soft to palpation, No Tenderness to palpation present (GI), No Guarding due to palpation present (GI) and Yes No hepatosplenomegaly present Extremity: COMMON NORMALS: normal to inspection, capillary refill normal, no clubbing, cyanosis or edema, no calf tenderness and no pedal edema Neuro: SENSORIUM/ORIENTATION: Yes oriented to person, Yes oriented to place and Yes oriented to time Skin: COMMON NORMALS: no rashes or lesions noted GENERAL SKIN EXAM: no rashes or lesions noted Course 2 Vital Signs: Vital signs: Vital Signs Temperature 98.4 F 03/11/24 15:07 Pulse Rate 72 03/11/24 19:44 Respiratory Rate 18 03/11/24 19:44 Blood Pressure 111/70 03/11/24 19:44 Pulse Oximetry 95 03/11/24 19:44 Oxygen Delivery Me thod Room Air 03/11/24 15:07 MDM - Chest Pain Medical Decision Making Chest pain second opponent pending care signed out to Dr. Colmenares at change of shift. See final notes for diagnosis and disposition. 39-year-old female checked out at shift change. She is here with chest discomfort. Pleuritic in nature. She also was complaining of some weakness evidently. Head CT is negative. Chest x-ray is negative. CBC is normal. Creatinine is 1.3, otherwise BMP is not remarkable. Liver enzymes are normal. Troponin shows a 2.4 delta at 2 hours. Patient has multiple pain medication allergies, essentially everything except narcotics. She was given IM morphine here with improvement in her discomfort. Her D-dimer is 0.5. She will go home on a steroid taper for pleuritic chest pain. Return for worsening symptoms. Outpatient follow-up. Lab Data 03/11/24 16:03 03/11/24 16:03 Radiology Impressions Chest X-Ray 03/11/24 15:01 IMPRESSION: No acute radiographic findings. Head CT 03/11/24 15:14 IMPRESSION: 1. No CT evidence of acute intracranial pathology. 2. Additional findings, as above. Laboratory Results WBC 8.64 10^3/uL (3.29-11.43) 03/11/24 16:03 RBC 4.39 10^6/uL (3.85-5.65) 03/11/24 16:03 Hgb 13.60 g/dL (11.27-16.99) 03/11/24 16:03 Hct 43.0 % (36-47) 03/11/24 16:03 MCV 97.9 fl (85-98) 03/11/24 16:03 MCH 31.0 pg (27-33) 03/11/24 16:03 MCHC 31.6 g/dL (30-55) 03/11/24 16:03 RDW 12.5 % (12.1-15.1) 03/11/24 16:03 Plt Count 255 10^3/cmm (157-399) 03/11/24 16:03 MPV 10.8 fL (7.4-10.4) H 03/11/24 16:03 Neut % (Auto) 63.0 % 03/11/24 16:03 Lymph % (Auto) 27.9 % 03/11/24 16:03 Swain % (Auto) 5.9 % 03/11/24 16:03 Eos % (Auto) 2.3 % 03/11/24 16:03 Baso % (Auto) 0.7 % 03/11/24 16:03 Neut # (Auto) 5.44 10^3/uL (1.8-7.7) 03/11/24 16:03 Lymph # (Auto) 2.4 10^3/uL (0.8-4.8) 03/11/24 16:03 Swain # (Auto) 0.5 10^3/uL (0.2-0.9) 03/11/24 16:03 Eos # (Auto) 0.2 10^3/uL (0.0-0.8) 03/11/24 16:03 Baso # (Auto) 0.1 10^3/uL (0.0-0.1) 03/11/24 16:03 Nucleated RBC % (auto) 0 % 03/11/24 16:03 Nucleated RBCs # 0.0 /100WBC 03/11/24 16:03 PT 14.50 SECONDS (12.1-14.9) 03/11/24 16:03 INR 1.10 (0.8-1.2) 03/11/24 16:03 D-Dimer 0.50 ug/mLFEU (0-0.59) 03/11/24 16:03 Sodium 137 mmol/L (136-145) 03/11/24 16:03 Potassium 4.7 mmol/L (3.5-5.1) 03/11/24 16:03 Chloride 100 mmol/L (98-107) 03/11/24 16:03 Carbon Dioxide 27 mmol/L (22-29) 03/11/24 16:03 Anion Gap 14.7 (5-19) 03/11/24 16:03 BUN 15 mg/dL (6-20) 03/11/24 16:03 Creatinine 1.3 mg/dL (0.5-0.9) H 03/11/24 16:03 GFR Calculation 45.6 mL/min (90-130) L 03/11/24 16:03 Glucose 107 mg/dL (65-115) 03/11/24 16:03 Calculated Osmolality 285 mOsm/kg (285-295) 03/11/24 16:03 Calcium 9.3 mg/dL (8.5-10.5) 03/11/24 16:03 Total Bilirubin 0.2 mg/dL (0.15-1.2) 03/11/24 16:03 AST 18 U/L (0-32) 03/11/24 16:03 ALT 14 U/L (0-33) 03/11/24 16:03 Alkaline Phosphatase 187 U/L (35-105) H 03/11/24 16:03 Troponin T Baseline 8 ng/L (0-10) 03/11/24 16:03 Troponin T 120 Minute 10.38 ng/L (0-10) H 03/11/24 18:10 Delta Troponin T 2.38 ABS# (0-10) 03/11/24 18:10 NT-Pro-B Natriuret Pep 198 pg/mL (0-125) H 03/11/24 16:03 Total Protein 6.5 g/dL (6.6-8.7) L 03/11/24 16:03 Albumin 4.0 g/dL (3.5-5.2) 03/11/24 16:03 Globulin 2.5 g/dL (1.3-4.6) 03/11/24 16:03 Lipase 19 U/L (13-60) 03/11/24 16:03 Discharge Plan Discharge Patient Disposition: Home Clinical Impression: Atypical chest pain Condition: Stable Prescriptions: New methylprednisolone [Medrol (Norm)] 4 mg tablets,dose pack See Rx Instructions .ROUTE .COMPLEX Qty: 21 0RF Rx Instructions: orally per package directions No Action norethindrone (contraceptive) 0.35 mg tablet 0.35 mg PO DAILY Qty: 84 3RF (DME) Bedside Commode See Rx Instructions .Route .MEDSUPPLY Qty: 1 0RF Rx Instructions: due to patient needing to remain NWB besides heel transferring to utilize facility. (DME) Antislip Socks See Rx Instructions .Route .MEDSUPPLY Qty: 1 0RF Rx Instructions: As directed (DME) addison lift See Rx Instructions .Route .MEDSUPPLY Qty: 1 0RF Rx Instructions: As directed meloxicam 15 mg tablet 15 mg PO DAILY pantoprazole [Protonix] 40 mg tablet,delayed release (DR/EC) 40 mg PO BID 42 Days Qty: 84 1RF losartan 25 mg tablet 25 mg PO DAILY Qty: 90 3RF oxcarbazepine 300 mg Tablet 300 mg PO TID cetirizine 10 mg Tablet 10 mg PO DAILY@08 fluticasone propionate 50 mcg/actuation [place],Suspension 1 spray INTRANASAL DAILY@14 bupropion HCl 300 mg Tablet Extended Release 24 Hr 300 mg PO DAILY@08 potassium chloride 20 mEq Tablet Extended Release 20 meq PO DAILY@08 ergocalciferol (vitamin D2) [Vitamin D2] 1,250 mcg (50,000 unit) capsule 50,000 unit PO Q7D Rx Instructions: on TUESDAY Eliquis 5 mg tablet 5 mg PO BID@08,20 Hold Instructions: Resume on 01/27/24. furosemide 40 mg tablet 40 mg PO DAILY@08 Neosporin (qmg-fpg-tvkyr) 3.5mg-400 unit- 5,000 unit/gram Ointment 1 applic TOPICAL BID PRN (Reason: unknown) epinephrine [EpiPen 2-Norm] 0.3 mg/0.3 mL Auto-Injector 0.3 mg IM Q4H PRN (Reason: Allergic Reaction) lidocaine 5 % Adhesive Patch,Medicated 1 patch TOPICAL DAILY Rx Instructions: leave on most painful area for up to 12 hrs menthol Gel 1 applic TOPICAL BID PRN (Reason: JOINT PAIN) calcium carbonate-vitamin D3 [Calcium 600 + D(3)] 600 mg-10 mcg (400 unit) Tablet 1 tab PO DAILY Probiotic 3 billion cell Capsule 3,000 mmu cells PO DAILY Rx Instructions: administer with a meal oxybutynin chloride 5 mg tablet extended release 24hr 5 mg PO DAILY hydroxyzine HCl 25 mg Tablet 25 mg PO BEDTIME Rx Instructions: AND PRN TID NEEDED eucalyptus-menthol Lozenge 1 shelby mucous membrane Q1H PRN (Reason: Sore Throat) Rx Instructions: DISSOLVE 1 LOZENGE BY MOUTH EVERY HOUR NEEDED camphor-methyl salicyl-menthol Adhesive Patch,Medicated See Rx Instructions .ROUTE .COMPLEX Rx Instructions: Apply 1 patch topically and change as needed for sciatic pain. cyanocobalamin (vitamin B-12) 1,000 mcg tablet 1,000 mcg PO DAILY Qty: 30 0RF levothyroxine 175 mcg capsule 175 mcg PO DAILY Qty: 30 0RF acetazolamide 250 mg Tablet 250 mg PO EVERY OTHER DAY Qty: 14 0RF gabapentin 600 mg Tablet 300 mg PO TID@08,14,20 Qty: 30 0RF sertraline 100 mg tablet 300 mg PO DAILY@0800 (DME) CPAP Device Eucerin Cream 1 applic TOPICAL BID PRN (Reason: Outbreak) pantoprazole 40 mg tablet,delayed release (DR/EC) 40 mg PO BID 42 Days Qty: 84 1RF albuterol sulfate 90 mcg/actuation HFA aerosol inhaler 2 inh inhalation Q4H PRN (Reason: shortness of breath or wheezing) Qty: 6.7 1RF furosemide 20 mg tablet 20 mg PO .@NOON Rx Instructions: 20 mg orally at noon ciclopirox 0.77 % cream 1 applic topical BID PRN (Reason: Rash) Rx Instructions: Apply to red areas twice a day, as needed. aripiprazole 10 mg tablet 10 mg PO DAILY Discharge Orders: Discharge ED (Routine); Ordered 03/11/24 Ordered By: Cordell Colmenares Referrals: Fern Aguilar FNP [Primary Care Provider] - 1-3 days Patient Instructions: Chest Pain (ED), Opioid Safety, Pain Management Activity Restrictions/Additional Instructions: Your chest pain is causing chest wall inflammation. Treatment is anti- inflammatories or steroids, and time. Follow-up with your doctor this week. Return for fever, worsening shortness of breath despite treatment, other concerning symptoms. Coding Level of Care Code ED [employer] F[employer] Documented by User: Cordell Colmenares DO 03/11/24 21:09 HPI - Chest Pain 2 General: Chief Complaint: Chest Pain Stated Complaint: CHEST PAIN Time Seen by Provider: 03/11/24 15:02 Related Data Home Medications Medication Instructions Recorded Confirmed bupropion HCl 300 mg 24 hr tablet, 300 mg PO DAILY@02/16/20 03/11/24 extended release cetirizine 10 mg tablet 10 mg PO DAILY@02/16/20 03/11/24 fluticasone propionate 50 1 spray intranasal DAILY@02/16/20 03/11/24 mcg/actuation nasal spray,suspension potassium chloride 20 mEq 20 meq PO DAILY@02/16/20 03/11/24 tablet,extended release oxcarbazepine 300 mg tablet 300 mg PO TID 06/15/21 03/11/24 apixaban 5 mg tablet (Eliquis) 5 mg PO BID@11/26/21 03/11/24 epinephrine 0.3 mg/0.3 mL 0.3 mg IM Q4H PRN Allergic Reaction 11/26/21 03/11/24 injection, auto-injector (EpiPen 2-Norm) ergocalciferol (vitamin D2) 1,250 50,000 unit PO Q7D 11/26/21 03/11/24 mcg (50,000 unit) capsule (Vitamin D2) furosemide 40 mg tablet 40 mg PO DAILY@11/26/21 03/11/24 neomycin-bacitracn Zn-polymyx 3.5 1 applic topical BID PRN unknown 11/26/21 03/11/24 mg-400 unit-5,000 unit/gram top oint (Neosporin (wsr-che-zubdv)) calcium 600 mg (as 1 tab PO DAILY 02/12/22 03/11/24 carbonate)-vitamin D3 10 mcg (400 unit) tablet (Calcium 600 + D(3)) lactobacillus combination no.4 3 3,000 mmu cells PO DAILY 02/12/22 03/11/24 billion cell capsule (Probiotic) lidocaine 5 % topical patch 1 patch topical DAILY 02/12/22 03/11/24 menthol 1 applic topical BID PRN JOINT PAIN 02/12/22 03/11/24 aripiprazole 10 mg tablet 10 mg PO DAILY 01/17/23 03/11/24 ciclopirox 0.77 % topical cream 1 applic topical BID PRN Rash 01/17/23 03/11/24 furosemide 20 mg tablet 20 mg PO .@NOON 01/17/23 03/11/24 camphor-methyl salicylate-menthol See Rx Instructions .Route .COMPLEX 02/27/23 03/11/24 topical patch eucalyptus-menthol oral mucosal 1 shelby mucous membrane Q1H PRN Sore 02/27/23 03/11/24 lozenge Throat hydroxyzine HCl 25 mg tablet 25 mg PO BEDTIME Anxiety 02/27/23 03/11/24 oxybutynin chloride 5 mg 5 mg PO DAILY 02/27/23 03/11/24 tablet,extended release 24 hr meloxicam 15 mg tablet 15 mg PO DAILY 09/27/23 03/11/24 CPAP 01/24/24 03/11/24 lanolin alcohols-mineral 1 applic topical BID PRN Outbreak 01/24/24 03/11/24 oil-w.petrolatum-ceresin topical cream (Eucerin topical cream) sertraline 100 mg tablet 300 mg PO DAILY@0800 01/24/24 03/11/24 Previous Rx's Medication Instructions Recorded albuterol sulfate 90 mcg/actuation 2 inh inhalation Q4H PRN shortness 06/25/22 aerosol inhaler of breath or wheezing #6.7 grams acetazolamide 250 mg tablet 250 mg PO EVERY OTHER DAY #14 tabs 03/01/23 cyanocobalamin (vitamin B-12) 1,000 mcg PO DAILY #30 tabs 03/01/23 1,000 mcg tablet levothyroxine 175 mcg capsule 175 mcg PO DAILY #30 caps 03/01/23 gabapentin 600 mg tablet 300 mg (1/2 x 600 mg) PO 03/02/23 TID@08,14,20 #30 tabs Antislip Socks #1 ea 03/14/23 Bedside Commode #1 ea 03/14/23 addison lift #1 ea 03/14/23 losartan 25 mg tablet 25 mg PO DAILY #90 tabs 06/08/23 pantoprazole 40 mg tablet,delayed 40 mg PO BID 6 weeks #84 tabs 01/05/24 release (Protonix) pantoprazole 40 mg tablet,delayed 40 mg PO BID 6 weeks #84 tabs 01/25/24 release norethindrone (contraceptive) 0.35 0.35 mg PO DAILY #84 tabs 01/31/24 mg tablet methylprednisolone 4 mg tablets in See Rx Instructions PO .COMPLEX 03/11/24 a dose pack (Medrol (Norm)) #21 ea Allergies Allergy/AdvReac Type Severity Reaction Status Date / Time acetaminophen [From Tylenol] Allergy ALGY-Rash Verified 01/31/24 09:02 aspirin Allergy ALGY-Rash Verified 01/31/24 09:02 azithromycin Allergy ALGY-Rash Verified 01/31/24 09:02 bee venom protein (honey bee) Allergy ALGY-Anaphy Verified 01/31/24 13:38 laxis haloperidol [From Haldol] Allergy ADR-Seizure Verified 01/31/24 09:02 tramadol Allergy ADR-Seizure Verified 01/31/24 09:02 ibuprofen AdvReac Mild Unknown Verified 01/31/24 09:02 [facility] ED 2 PFS: Medical History Obesity hypoventilation syndrome Chronic hypoxic respiratory failure Body mass index (BMI) greater than 70 in adult Morbid obesity BMI 80+; has some features of pradar willi syndrome, but states she was tested at [facility] and does not carry formal diagnosis Psychiatric disorder Benign essential HTN Nocturnal enuresis Nocturnal hypoxemia Elevated brain natriuretic peptide (BNP) level Suspected pulmonary embolism diagnosis in early 2021 for which chronic anticoagulation initiated Sleep apnea Sleep study 07/2021 severe sleep apnea with hypoxemia. Sleep titration recommended. Non-invasive ventilator recommended. As of 01/2023 has not had titration study. Bipolar disorder Nocturnal polyuria Fibromyalgia syndrome Congestive heart failure Echo 06/2021: LV systolic function normal with EF of 55 to 60%, mild pulmonary hypertension with RVSP 35-40mmHg Osteoarthritis Hypothyroidism [facility] endocrinology--Dr Meliza Jain Surgical History H/O laparoscopy (~2010) treatment of ovarian cysts; performed in [place] History of colonoscopy with polypectomy 2017 History of tonsillectomy and adenoidectomy History of placement of ear tubes History of cholecystectomy 2017-lap History of dental surgery Family History Grandmother Breast cancer Maternal--dx age unknown Diabetes Maternal Hypertension Maternal Mother Breast cancer dx age 40's ; unknown if hormone receptive Thyroid disease Grandfather No problems noted. Sister Thyroid disease Denies family history of Colon cancer Ovarian cancer Hypercholesteremia Uterine cancer Stroke Social History Smoking and tobacco/nicotine status: current every day tobacco/nicotine user Course 2 Vital Signs: Vital signs: Vital Signs Temperature 98.4 F 03/11/24 15:07 Pulse Rate 72 03/11/24 19:44 Respiratory Rate 18 03/11/24 19:44 Blood Pressure 111/70 03/11/24 19:44 Pulse Oximetry 95 03/11/24 19:44 Oxygen Delivery Me thod Room Air 03/11/24 15:07 MDM - Chest Pain Medical Decision Making 39-year-old female checked out at shift change. She is here with chest discomfort. Pleuritic in nature. She also was complaining of some weakness evidently. Head CT is negative. Chest x-ray is negative. CBC is normal. Creatinine is 1.3, otherwise BMP is not remarkable. Liver enzymes are normal. Troponin shows a 2.4 delta at 2 hours. Patient has multiple pain medication allergies, essentially everything except narcotics. She was given IM morphine here with improvement in her discomfort. Her D-dimer is 0.5. She will go home on a steroid taper for pleuritic chest pain. Return for worsening symptoms. Outpatient follow-up. Lab Data 03/11/24 16:03 03/11/24 16:03 Radiology Impressions Chest X-Ray 03/11/24 15:01 IMPRESSION: No acute radiographic findings. Head CT 03/11/24 15:14 IMPRESSION: 1. No CT evidence of acute intracranial pathology. 2. Additional findings, as above. Laboratory Results WBC 8.64 10^3/uL (3.29-11.43) 03/11/24 16:03 RBC 4.39 10^6/uL (3.85-5.65) 03/11/24 16:03 Hgb 13.60 g/dL (11.27-16.99) 03/11/24 16:03 Hct 43.0 % (36-47) 03/11/24 16:03 MCV 97.9 fl (85-98) 03/11/24 16:03 MCH 31.0 pg (27-33) 03/11/24 16:03 MCHC 31.6 g/dL (30-55) 03/11/24 16:03 RDW 12.5 % (12.1-15.1) 03/11/24 16:03 Plt Count 255 10^3/cmm (157-399) 03/11/24 16:03 MPV 10.8 fL (7.4-10.4) H 03/11/24 16:03 Neut % (Auto) 63.0 % 03/11/24 16:03 Lymph % (Auto) 27.9 % 03/11/24 16:03 Swain % (Auto) 5.9 % 03/11/24 16:03 Eos % (Auto) 2.3 % 03/11/24 16:03 Baso % (Auto) 0.7 % 03/11/24 16:03 Neut # (Auto) 5.44 10^3/uL (1.8-7.7) 03/11/24 16:03 Lymph # (Auto) 2.4 10^3/uL (0.8-4.8) 03/11/24 16:03 Swain # (Auto) 0.5 10^3/uL (0.2-0.9) 03/11/24 16:03 Eos # (Auto) 0.2 10^3/uL (0.0-0.8) 03/11/24 16:03 Baso # (Auto) 0.1 10^3/uL (0.0-0.1) 03/11/24 16:03 Nucleated RBC % (auto) 0 % 03/11/24 16:03 Nucleated RBCs # 0.0 /100WBC 03/11/24 16:03 PT 14.50 SECONDS (12.1-14.9) 03/11/24 16:03 INR 1.10 (0.8-1.2) 03/11/24 16:03 D-Dimer 0.50 ug/mLFEU (0-0.59) 03/11/24 16:03 Sodium 137 mmol/L (136-145) 03/11/24 16:03 Potassium 4.7 mmol/L (3.5-5.1) 03/11/24 16:03 Chloride 100 mmol/L (98-107) 03/11/24 16:03 Carbon Dioxide 27 mmol/L (22-29) 03/11/24 16:03 Anion Gap 14.7 (5-19) 03/11/24 16:03 BUN 15 mg/dL (6-20) 03/11/24 16:03 Creatinine 1.3 mg/dL (0.5-0.9) H 03/11/24 16:03 GFR Calculation 45.6 mL/min (90-130) L 03/11/24 16:03 Glucose 107 mg/dL (65-115) 03/11/24 16:03 Calculated Osmolality 285 mOsm/kg (285-295) 03/11/24 16:03 Calcium 9.3 mg/dL (8.5-10.5) 03/11/24 16:03 Total Bilirubin 0.2 mg/dL (0.15-1.2) 03/11/24 16:03 AST 18 U/L (0-32) 03/11/24 16:03 ALT 14 U/L (0-33) 03/11/24 16:03 Alkaline Phosphatase 187 U/L (35-105) H 03/11/24 16:03 Troponin T Baseline 8 ng/L (0-10) 03/11/24 16:03 Troponin T 120 Minute 10.38 ng/L (0-10) H 03/11/24 18:10 Delta Troponin T 2.38 ABS# (0-10) 03/11/24 18:10 NT-Pro-B Natriuret Pep 198 pg/mL (0-125) H 03/11/24 16:03 Total Protein 6.5 g/dL (6.6-8.7) L 03/11/24 16:03 Albumin 4.0 g/dL (3.5-5.2) 03/11/24 16:03 Globulin 2.5 g/dL (1.3-4.6) 03/11/24 16:03 Lipase 19 U/L (13-60) 03/11/24 16:03 All radiology interpretation(s) finalized by discharge Discharge Plan Discharge Patient Disposition: Home Clinical Impression: Atypical chest pain Condition: Stable Prescriptions: New methylprednisolone [Medrol (Norm)] 4 mg tablets,dose pack See Rx Instructions .ROUTE .COMPLEX Qty: 21 0RF Rx Instructions: orally per package directions No Action norethindrone (contraceptive) 0.35 mg tablet 0.35 mg PO DAILY Qty: 84 3RF (DME) Bedside Commode See Rx Instructions .Route .MEDSUPPLY Qty: 1 0RF Rx Instructions: due to patient needing to remain NWB besides heel transferring to utilize facility. (DME) Antislip Socks See Rx Instructions .Route .MEDSUPPLY Qty: 1 0RF Rx Instructions: As directed (DME) addison lift See Rx Instructions .Route .MEDSUPPLY Qty: 1 0RF Rx Instructions: As directed meloxicam 15 mg tablet 15 mg PO DAILY pantoprazole [Protonix] 40 mg tablet,delayed release (DR/EC) 40 mg PO BID 42 Days Qty: 84 1RF losartan 25 mg tablet 25 mg PO DAILY Qty: 90 3RF oxcarbazepine 300 mg Tablet 300 mg PO TID cetirizine 10 mg Tablet 10 mg PO DAILY@08 fluticasone propionate 50 mcg/actuation [place],Suspension 1 spray INTRANASAL DAILY@14 bupropion HCl 300 mg Tablet Extended Release 24 Hr 300 mg PO DAILY@08 potassium chloride 20 mEq Tablet Extended Release 20 meq PO DAILY@08 ergocalciferol (vitamin D2) [Vitamin D2] 1,250 mcg (50,000 unit) capsule 50,000 unit PO Q7D Rx Instructions: on TUESDAY Eliquis 5 mg tablet 5 mg PO BID@08,20 Hold Instructions: Resume on 01/27/24. furosemide 40 mg tablet 40 mg PO DAILY@08 Neosporin (nyj-anl-tvnan) 3.5mg-400 unit- 5,000 unit/gram Ointment 1 applic TOPICAL BID PRN (Reason: unknown) epinephrine [EpiPen 2-Onrm] 0.3 mg/0.3 mL Auto-Injector 0.3 mg IM Q4H PRN (Reason: Allergic Reaction) lidocaine 5 % Adhesive Patch,Medicated 1 patch TOPICAL DAILY Rx Instructions: leave on most painful area for up to 12 hrs menthol Gel 1 applic TOPICAL BID PRN (Reason: JOINT PAIN) calcium carbonate-vitamin D3 [Calcium 600 + D(3)] 600 mg-10 mcg (400 unit) Tablet 1 tab PO DAILY Probiotic 3 billion cell Capsule 3,000 mmu cells PO DAILY Rx Instructions: administer with a meal oxybutynin chloride 5 mg tablet extended release 24hr 5 mg PO DAILY hydroxyzine HCl 25 mg Tablet 25 mg PO BEDTIME Rx Instructions: AND PRN TID NEEDED eucalyptus-menthol Lozenge 1 shelby mucous membrane Q1H PRN (Reason: Sore Throat) Rx Instructions: DISSOLVE 1 LOZENGE BY MOUTH EVERY HOUR NEEDED camphor-methyl salicyl-menthol Adhesive Patch,Medicated See Rx Instructions .ROUTE .COMPLEX Rx Instructions: Apply 1 patch topically and change as needed for sciatic pain. cyanocobalamin (vitamin B-12) 1,000 mcg tablet 1,000 mcg PO DAILY Qty: 30 0RF levothyroxine 175 mcg capsule 175 mcg PO DAILY Qty: 30 0RF acetazolamide 250 mg Tablet 250 mg PO EVERY OTHER DAY Qty: 14 0RF gabapentin 600 mg Tablet 300 mg PO TID@08,14,20 Qty: 30 0RF sertraline 100 mg tablet 300 mg PO DAILY@0800 (DME) CPAP Device Eucerin Cream 1 applic TOPICAL BID PRN (Reason: Outbreak) pantoprazole 40 mg tablet,delayed release (DR/EC) 40 mg PO BID 42 Days Qty: 84 1RF albuterol sulfate 90 mcg/actuation HFA aerosol inhaler 2 inh inhalation Q4H PRN (Reason: shortness of breath or wheezing) Qty: 6.7 1RF furosemide 20 mg tablet 20 mg PO .@NOON Rx Instructions: 20 mg orally at noon ciclopirox 0.77 % cream 1 applic topical BID PRN (Reason: Rash) Rx Instructions: Apply to red areas twice a day, as needed. aripiprazole 10 mg tablet 10 mg PO DAILY Discharge Orders: Discharge ED (Routine); Ordered 03/11/24 Ordered By: Cordell Colmenares Referrals: Fern Aguilar FNP [Primary Care Provider] - 1-3 days Patient Instructions: Chest Pain (ED), Opioid Safety, Pain Management Activity Restrictions/Additional Instructions: Your chest pain is causing chest wall inflammation. Treatment is anti- inflammatories or steroids, and time. Follow-up with your doctor this week. Return for fever, worsening shortness of breath despite treatment, other concerning symptoms. Coding Level of Care Code ED Christmas Tree Contractor for Luis Carlos Lee
--- NOTE | 2024-03-11 15:14 | CTR_ITS ---
PROCEDURE INFORMATION: Exam: CT Head Without Contrast Exam date and time: 03/11/2024 3:27 PM Age: 39 years old Clinical indication: Pain; Headache; Vascular TECHNIQUE: Imaging protocol: Computed tomography of the head without contrast. Axial, coronal and sagittal reformatted images were created and reviewed. Radiation optimization: All CT scans at this facility use at least one of these dose optimization techniques: automated exposure control; mA and/or kV adjustment per patient size (includes targeted exams where dose is matched to clinical indication); or iterative reconstruction. COMPARISON: CT head wo con* [id number] 02/12/2022 3:35 PM RADIATION DOSE METRICS: Total DLP (mGy-cm): 1068.98 FINDINGS: Brain: No CT evidence of acute intracranial hemorrhage or acute territorial infarction. No significant mass effect or midline shift. Basal cisterns patent. Cerebral ventricles: Normal in size and configuration. Paranasal sinuses: Unremarkable. No fluid levels. Mastoid air cells: Grossly unremarkable. Bones: Mild polypoid ethmoid, maxillary and inferior frontal sinus mucosal thickening. Soft tissues: Grossly unremarkable. CT/CT head wo con* [id number] IMPRESSION: 1[address] No CT evidence of acute intracranial pathology. 2. Additional findings, as above.
[2024-03-11 16:13] LABS: Basophils # 0.1 10^3/uL (0.0-0.1); Basophils % 0.7 %; Eosinophils # 0.2 10^3/uL (0.0-0.8); Eosinophils % 2.3 %; Lymphocytes # 2.4 10^3/uL (0.8-4.8); Lymphocytes % 27.9 %; Mean Corpuscular HGB Conc 31.6 g/dL (30-55); Mean Corpuscular Volume 97.9 fl (85-98); Mean Platelet Volume 10.8 fL (7.4-10.4); Monocytes # 0.5 10^3/uL (0.2-0.9); Monocytes % 5.9 %; Neutrophils # 5.44 10^3/uL (1.8-7.7); Nucleated Red Blood Cells % 0 %; Platelet Count 255 10^3/cmm (157-399); Red Blood Count 4.39 10^6/uL (3.85-5.65); Red Cell Distribution Width 12.5 % (12.1-15.1); White Blood Count 8.64 10^3/uL (3.29-11.43)
[2024-03-11 16:35] LABS: Troponin(5th) Baseline 8 ng/L (0-10)
[2024-03-11 16:50] LABS: Alanine Aminotransferase 14 U/L (0-33); Alkaline Phosphatase 187 U/L (35-105); Anion Gap 14.7 (5-19); Aspartate Amino Transferase 18 U/L (0-32); Blood Urea Nitrogen 15 mg/dL (6-20); Calcium 9.3 mg/dL (8.5-10.5); Carbon Dioxide 27 mmol/L (22-29); Chloride 100 mmol/L (98-107); Creatinine Clr Calc Pharmacy 94.4394; Globulin 2.5 g/dL (1.3-4.6); Glomerular Filtration Rate 45.6 mL/min (90-130); Glucose 107 mg/dL (65-115); Lipase 19 U/L (13-60); NT Pro B Type Natriuretic Pept 198 pg/mL (0-125); Osmolality Calculated 285 mOsm/kg (285-295); Potassium 4.7 mmol/L (3.5-5.1); Sodium 137 mmol/L (136-145); Total Bilirubin 0.2 mg/dL (0.15-1.2); Total Protein 6.5 g/dL (6.6-8.7)
--- NOTE | 2024-03-11 17:01 | ECG_ITS ---
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
[2024-03-11] MEDS: morphine 4 mg/mL SDV 1 mL IM (18:54)
[2024-03-11 19:07] LABS: Troponin 5 2HR 10.38 ng/L (0-10); Troponin 5 2HR Delta 2.38 ABS# (0-10)
== END 2024-03-11 20:00 | disposition home or self-care (01) ==
PROVIDERS: Emergency Medicine; Emergency Provider Emergency Medicine; PCP Nurse Practitioner Family
DX: R07.89 Other chest pain (principal); Z72.0 Tobacco use; I11.0 Hypertensive heart disease with heart failure; I50.9 Heart failure, unspecified
CPT/HCPCS: 36415; 70450; 71045; 80053; 83690; 83880; 84484; 85025; 85378; 85610; 93005; 96372; 99285; J2270

== ENCOUNTER → 2024-04-18 14:03 | Outpatient (BNVA) | payer MEDICAID, SELFPAY | PROVIDERS: PCP Nurse Practitioner Family; Visit Provider Podiatrist Foot & Ankle Surgery | DX: L60.3 Nail dystrophy (principal) | CPT/HCPCS: 99213 ==

== ENCOUNTER 2024-04-19 14:08 | Emergency (ER) | payer MEDICAID, SELFPAY ==
[2024-04-19 14:21] VITALS: BP 106/61; PULSE 110; RESP 18; TEMP 36.7; O2SAT 92; BMI 63.2
[2024-04-19 14:32] LABS: Basophils # 0.1 10^3/uL (0.0-0.1); Basophils % 0.5 %; Eosinophils # 0.1 10^3/uL (0.0-0.8); Eosinophils % 0.9 %; Hematocrit 46.6 % (36-47); Lymphocytes # 0.5 10^3/uL (0.8-4.8); Lymphocytes % 3.6 %; Mean Corpuscular HGB Conc 32.4 g/dL (30-55); Mean Corpuscular Hemoglobin 31.3 pg (27-33); Mean Corpuscular Volume 96.5 fl (85-98); Mean Platelet Volume 11.7 fL (7.4-10.4); Monocytes # 0.5 10^3/uL (0.2-0.9); Monocytes % 4.1 %; Neutrophils % 90.6 %; Nucleated Red Blood Cells % 0 %; Platelet Count 223 10^3/cmm (157-399); Red Blood Count 4.83 10^6/uL (3.85-5.65); Red Cell Distribution Width 12.6 % (12.1-15.1); White Blood Count 12.91 10^3/uL (3.29-11.43)
--- NOTE | 2024-04-19 14:41 | ED_ITS ---
HPI - Nausea/Vomiting/Diarrhea 2 General: Chief complaint: Nausea/Vomiting/Diarrhea Stated complaint: N/V, incontinence Time Seen by Provider: 04/19/24 14:14 History of Present Illness: 39-year-old female with a history of sev ere morbid obesity, hypothyroidism, CHF, fibromyalgia, bipolar disorder, sleep apnea, hypertension and psychiatric issues who presents emergency room with nausea vomiting and diarrhea. She says she feels very weak now. No focal abdominal pain. No chest pain. No shortness of breath. She says the diarrhea is so bad that she has been having incontinence of stool. Related Data Home Medications Medication Instructions Recorded Confirmed bupropion HCl 300 mg 24 hr tablet, 300 mg PO DAILY@02/16/20 04/18/24 extended release cetirizine 10 mg tablet 10 mg PO DAILY@02/16/20 04/18/24 fluticasone propionate 50 1 spray intranasal DAILY@02/16/20 04/18/24 mcg/actuation nasal spray,suspension potassium chloride 20 mEq 20 meq PO DAILY@02/16/20 04/18/24 tablet,extended release oxcarbazepine 300 mg tablet 300 mg PO TID 06/15/21 04/18/24 apixaban 5 mg tablet (Eliquis) 5 mg PO BID@11/26/21 04/18/24 epinephrine 0.3 mg/0.3 mL 0.3 mg IM Q4H PRN Allergic Reaction 11/26/21 04/18/24 injection, auto-injector (EpiPen 2-Norm) ergocalciferol (vitamin D2) 1,250 50,000 unit PO Q7D 11/26/21 04/18/24 mcg (50,000 unit) capsule (Vitamin D2) furosemide 40 mg tablet 40 mg PO DAILY@11/26/21 04/18/24 neomycin-bacitracn Zn-polymyx 3.5 1 applic topical BID PRN unknown 11/26/21 04/18/24 mg-400 unit-5,000 unit/gram top oint (Neosporin ([id number]-iyvaq)) calcium 600 mg (as 1 tab PO DAILY 02/12/22 04/18/24 carbonate)-vitamin D3 10 mcg (400 unit) tablet (Calcium 600 + D(3)) lactobacillus combination no.4 3 3,000 mmu cells PO DAILY 02/12/22 04/18/24 billion cell capsule (Probiotic) lidocaine 5 % topical patch 1 patch topical DAILY 02/12/22 04/18/24 menthol 1 applic topical BID PRN JOINT PAIN 02/12/22 04/18/24 aripiprazole 10 mg tablet 10 mg PO DAILY 01/17/23 04/18/24 ciclopirox 0.77 % topical cream 1 applic topical BID PRN Rash 01/17/23 04/18/24 furosemide 20 mg tablet 20 mg PO .@NOON 01/17/23 04/18/24 camphor-methyl salicylate-menthol See Rx Instructions .Route .COMPLEX 02/27/23 04/18/24 topical patch eucalyptus-menthol oral mucosal 1 shelby mucous membrane Q1H PRN Sore 02/27/23 04/18/24 lozenge Throat hydroxyzine HCl 25 mg tablet 25 mg PO BEDTIME Anxiety 02/27/23 04/18/24 oxybutynin chloride 5 mg 5 mg PO DAILY 02/27/23 04/18/24 tablet,extended release 24 hr meloxicam 15 mg tablet 15 mg PO DAILY 09/27/23 04/18/24 CPAP 01/24/24 04/19/24 lanolin alcohols-mineral 1 applic topical BID PRN Outbreak 01/24/24 04/18/24 oil-w.petrolatum-ceresin topical cream (Eucerin topical cream) sertraline 100 mg tablet 300 mg PO DAILY@0800 01/24/24 04/18/24 Previous Rx's Medication Instructions Recorded albuterol sulfate 90 mcg/actuation 2 inh inhalation Q4H PRN shortness 06/25/22 aerosol inhaler of breath or wheezing #6.7 grams acetazolamide 250 mg tablet 250 mg PO EVERY OTHER DAY #14 tabs 03/01/23 cyanocobalamin (vitamin B-12) 1,000 mcg PO DAILY #30 tabs 03/01/23 1,000 mcg tablet levothyroxine 175 mcg capsule 175 mcg PO DAILY #30 caps 03/01/23 gabapentin 600 mg tablet 300 mg (1/2 x 600 mg) PO 03/02/23 TID@08,14,20 #30 tabs Ant[place]ip Socks #1 ea 03/14/23 Bedside Commode #1 ea 03/14/23 addison lift #1 ea 03/14/23 losartan 25 mg tablet 25 mg PO DAILY #90 tabs 06/08/23 pantoprazole 40 mg tablet,delayed 40 mg PO BID 6 weeks #84 tabs 01/05/24 release (Protonix) pantoprazole 40 mg tablet,delayed 40 mg PO BID 6 weeks #84 tabs 01/25/24 release norethindrone (contraceptive) 0.35 0.35 mg PO DAILY #84 tabs 01/31/24 mg tablet methylprednisolone 4 mg tablets in See Rx Instructions PO .COMPLEX 03/11/24 a dose pack (Medrol (Norm)) #21 ea ondansetron 8 mg disintegrating 8 mg PO Q6H #14 tabs 04/19/24 tablet promethazine 25 mg rectal 25 mg [place] Q6H PRN nausea and 04/19/24 suppository vomiting #12 ea sucralfate 1 gram tablet (Carafate) 1 g PO TID 4 weeks #84 tabs 04/19/24 Allergies Allergy/AdvReac Type Severity Reaction Status Date / Time acetaminophen [From Tylenol] Allergy ALGY-Rash Verified 04/18/24 13:46 aspirin Allergy ALGY-Rash Verified 04/18/24 13:46 azithromycin Allergy ALGY-Rash Verified 04/18/24 13:46 bee venom protein (honey bee) Allergy ALGY-Anaphy Verified 04/18/24 13:46 laxis haloperidol [From Haldol] Allergy ADR-Seizure Verified 04/18/24 13:46 tramadol Allergy ADR-Seizure Verified 04/18/24 13:46 ibuprofen AdvReac Mild Unknown Verified 04/18/24 13:46 [facility] ED 2 PFSH: Medical History Obesity hypoventilation syndrome Chronic hypoxic respiratory failure Body mass index (BMI) greater than 70 in adult Morbid obesity BMI 80+; has some features of pradar willi syndrome, but states she was tested at [facility] and does not carry formal diagnosis Psychiatric disorder Benign essential HTN Nocturnal enuresis Nocturnal hypoxemia Elevated brain natriuretic peptide (BNP) level Suspected pulmonary embolism diagnosis in early 2021 for which chronic anticoagulation initiated Sleep apnea Sleep study 07/2021 severe sleep apnea with hypoxemia. Sleep titration recommended. Non-invasive ventilator recommended. As of 01/2023 has not had titration study. Bipolar disorder Nocturnal polyuria Fibromyalgia syndrome Congestive heart failure Echo 06/2021: LV systolic function normal with EF of 55 to 60%, mild pulmonary hypertension with RVSP 35-40mmHg Osteoarthritis Hypothyroidism [facility] endocrinology--Dr Haider Depression Surgical History H/O laparoscopy (~2010) treatment of ovarian cysts; performed in [place] History of colonoscopy with polypectomy 2017 History of tonsillectomy and adenoidectomy History of placement of ear tubes History of cholecystectomy 2017-lap History of dental surgery Family History Grandmother Breast cancer Maternal--dx age unknown Diabetes Maternal Hypertension Maternal Mother Breast cancer dx age 40's ; unknown if hormone receptive Thyroid disease Grandfather No problems noted. Sister Thyroid disease Denies family history of Colon cancer Ovarian cancer Hypercholesteremia Uterine cancer Stroke Social History Smoking and tobacco/nicotine status: current every day tobacco/nicotine user Physical Exam 2 Narrative: EXAM NARRATIVE: General: Alert, no acute distress. Skin: Warm, dry. Head: Normocephalic, atraumatic. Neck: Supple, trachea midline. Eye: Extraocular movements are intact. Ears, nose, mouth and throat: Dry oral mucosa Cardiovascular: Regular, Normal peripheral perfusion. Respiratory: Lungs are clear to auscultation, respirations are non-labored, breath sounds are equal, Symmetrical chest wall expansion. Gastrointestinal: Soft, Nontender, Non distended Musculoskeletal: Normal ROM, no deformity. Neurological: Alert and oriented, No focal neurological deficit observed. Psychiatric: Cooperative, appropriate mood & affect. Course 2 Vital Signs: Vital signs: Vital Signs Temperature 98.1 F 04/19/24 14:21 Pulse Rate 95 04/19/24 15:43 Respiratory Rate 18 04/19/24 15:43 Blood Pressure 102/48 04/19/24 15:43 Pulse Oximetry 94 04/19/24 15:43 Oxygen Delivery Me thod Room Air 04/19/24 15:43 MDM - Nausea/Vomiting/Diarrhea Medical Decision Making Medical decision making: Differential diagnosis for this patient with nausea and vomiting including but not limited to and based on the above HPI, review of systems and physical exam: Urinary tract infection. Appendicitis. Cholecystis. colitis. small bowel obstruction. crohn's flare. pancreatitis. gastritis. peptic ulcer. cyclic vomiting. Viral illness. Influenza. COVID. Orders placed to evaluate differential diagnosis based on the above differential, HPI and physical exam Lab Review: Laboratory results were reviewed and interpreted by myself the emergency room physician. Mild leukocytosis. No anemia. No renal failure. Urinalysis is negative for infection. Lactate and lipase are negative. She has no focal abdominal pain. I reviewed the patient's medical record. Reexamination: On reexamination patient is in the room with a glass of Sprite and has eaten several packages of aurelio crackers. Has tolerated all of this. No increased work of breathing. No altered mental status. Assessment and plan: Gastroenteritis Dehydration Acute nausea and vomiting ?2 L normal saline given in the emergency room. She was quite hypotensive initially likely from diarrhea etc. She received IV Zofran. She is now tolerating p.o. - Discharged home - Discussed plan with patient. Answered any questions. - Evaluation and treatment of this problem were appropriate in the emergency setting. Lab Data 04/19/24 14:16 04/19/24 14:16 Laboratory Results WBC 12.91 10^3/uL (3.29-11.43) H 04/19/24 14:16 RBC 4.83 10^6/uL (3.85-5.65) 04/19/24 14:16 Hgb 15.10 g/dL (11.27-16.99) 04/19/24 14:16 Hct 46.6 % (36-47) 04/19/24 14:16 MCV 96.5 fl (85-98) 04/19/24 14:16 MCH 31.3 pg (27-33) 04/19/24 14:16 MCHC 32.4 g/dL (30-55) 04/19/24 14:16 RDW 12.6 % (12.1-15.1) 04/19/24 14:16 Plt Count 223 10^3/cmm (157-399) 04/19/24 14:16 MPV 11.7 fL (7.4-10.4) H 04/19/24 14:16 Neut % (Auto) 90.6 % 04/19/24 14:16 Lymph % (Auto) 3.6 % 04/19/24 14:16 [place] % (Auto) 4.1 % 04/19/24 14:16 Eos % (Auto) 0.9 % 04/19/24 14:16 Baso % (Auto) 0.5 % 04/19/24 14:16 Neut # (Auto) 11.70 10^3/uL (1.8-7.7) H 04/19/24 14:16 Lymph # (Auto) 0.5 10^3/uL (0.8-4.8) L 04/19/24 14:16 [place] # (Auto) 0.5 10^3/uL (0.2-0.9) 04/19/24 14:16 Eos # (Auto) 0.1 10^3/uL (0.0-0.8) 04/19/24 14:16 Baso # (Auto) 0.1 10^3/uL (0.0-0.1) 04/19/24 14:16 Nucleated RBC % (auto) 0 % 04/19/24 14:16 Nucleated RBCs # 0.0 /100WBC 04/19/24 14:16 Sodium 133 mmol/L (136-145) L 04/19/24 14:16 Potassium 4.6 mmol/L (3.5-5.1) 04/19/24 14:16 Chloride 98 mmol/L (98-107) 04/19/24 14:16 Carbon Dioxide 23 mmol/L (22-29) 04/19/24 14:16 Anion Gap 16.6 (5-19) 04/19/24 14:16 BUN 23 mg/dL (6-20) H 04/19/24 14:16 Creatinine 0.9 mg/dL (0.5-0.9) 04/19/24 14:16 GFR Calculation 69.7 mL/min (90-130) L 04/19/24 14:16 Glucose 103 mg/dL (65-115) 04/19/24 14:16 Calculated Osmolality 280 mOsm/kg (285-295) L 04/19/24 14:16 Lactic Acid 1.2 mmol/L (0.5-2.2) 04/19/24 14:16 Calcium 8.6 mg/dL (8.5-10.5) 04/19/24 14:16 Total Bilirubin 0.4 mg/dL (0.15-1.2) 04/19/24 14:16 AST 36 U/L (0-32) H 04/19/24 14:16 ALT 35 U/L (0-33) H 04/19/24 14:16 Alkaline Phosphatase 182 U/L (35-105) H 04/19/24 14:16 Total Protein 6.7 g/dL (6.6-8.7) 04/19/24 14:16 Albumin 3.5 g/dL (3.5-5.2) 04/19/24 14:16 Globulin 3.2 g/dL (1.3-4.6) 04/19/24 14:16 Lipase 20 U/L (13-60) 04/19/24 14:16 Urine Color Yellow (Yellow) 04/19/24 14:50 Urine Appearance Clear (CLEAR) 04/19/24 14:50 Urine pH 6.5 (5-7) 04/19/24 14:50 Ur Specific [place] 1.017 (1.005-1.030) 04/19/24 14:50 Urine Protein Negative (Negative) 04/19/24 14:50 Urine Glucose (UA) Negative (Normal) 04/19/24 14:50 Urine Ketones Negative (Negative) 04/19/24 14:50 Urine Blood Negative (Negative) 04/19/24 14:50 Urine Nitrate Negative (Negative) 04/19/24 14:50 Urine Bilirubin Negative (Negative) 04/19/24 14:50 Urine Urobilinogen 0.2 mg/dL (Negative) 04/19/24 14:50 Ur Leukocyte Esterase Negative (Negative) 04/19/24 14:50 Urine RBC 0-2 /hpf (0-2) 04/19/24 14:50 Urine WBC 0-5 /hpf (0-5) 04/19/24 14:50 Ur Squamous Epith Cells 0-5 /hpf (0-5) 04/19/24 14:50 Amorphous Sediment Not Reportable 04/19/24 14:50 Urine Bacteria None seen /hpf (NONE) 04/19/24 14:50 Hyaline Casts 2.05 /lpf 04/19/24 14:50 No radiology studies performed this visit Discharge Plan Discharge Patient Disposition: Home Clinical Impression: Gastroenteritis, Dehydration Condition: Stable Prescriptions: New promethazine 25 mg suppository 25 mg [place] Q6H PRN (Reason: nausea and vomiting) Qty: 12 0RF sucralfate [Carafate] 1 gram tablet 1 g PO TID 28 Days Qty: 84 0RF Rx Instructions: with meals ondansetron 8 mg tablet,disintegrating 8 mg PO Q6H Qty: 14 0RF Rx Instructions: Take 1/2-1 tab every 6 hours as needed for nausea and vomiting No Action norethindrone (contraceptive) 0.35 mg tablet 0.35 mg PO DAILY Qty: 84 3RF (DME) Bedside Commode See Rx Instructions .Route .MEDSUPPLY Qty: 1 0RF Rx Instructions: due to patient needing to remain NWB besides heel transferring to utilize facility. (DME) Antislip Socks See Rx Instructions .Route .MEDSUPPLY Qty: 1 0RF Rx Instructions: As directed (DME) addison lift See Rx Instructions .Route .MEDSUPPLY Qty: 1 0RF Rx Instructions: As directed meloxicam 15 mg tablet 15 mg PO DAILY pantoprazole [Protonix] 40 mg tablet,delayed release (DR/EC) 40 mg PO BID 42 Days Qty: 84 1RF losartan 25 mg tablet 25 mg PO DAILY Qty: 90 3RF oxcarbazepine 300 mg Tablet 300 mg PO TID cetirizine 10 mg Tablet 10 mg PO DAILY@08 fluticasone propionate 50 mcg/actuation [place],Suspension 1 spray INTRANASAL DAILY@14 bupropion HCl 300 mg Tablet Extended Release 24 Hr 300 mg PO DAILY@08 potassium chloride 20 mEq Tablet Extended Release 20 meq PO DAILY@08 ergocalciferol (vitamin D2) [Vitamin D2] 1,250 mcg (50,000 unit) capsule 50,000 unit PO Q7D Rx Instructions: on TUESDAY Eliquis 5 mg tablet 5 mg PO BID@08,20 Hold Instructions: Resume on 01/27/24. furosemide 40 mg tablet 40 mg PO DAILY@08 Neosporin (stv-yqc-jjzgk) 3.5mg-400 unit- 5,000 unit/gram Ointment 1 applic TOPICAL BID PRN (Reason: unknown) epinephrine [EpiPen 2-Norm] 0.3 mg/0.3 mL Auto-Injector 0.3 mg IM Q4H PRN (Reason: Allergic Reaction) lidocaine 5 % Adhesive Patch,Medicated 1 patch TOPICAL DAILY Rx Instructions: leave on most painful area for up to 12 hrs menthol Gel 1 applic TOPICAL BID PRN (Reason: JOINT PAIN) calcium carbonate-vitamin D3 [Calcium 600 + D(3)] 600 mg-10 mcg (400 unit) Tablet 1 tab PO DAILY Probiotic 3 billion cell Capsule 3,000 mmu cells PO DAILY Rx Instructions: administer with a meal oxybutynin chloride 5 mg tablet extended release 24hr 5 mg PO DAILY hydroxyzine HCl 25 mg Tablet 25 mg PO BEDTIME Rx Instructions: AND PRN TID NEEDED eucalyptus-menthol Lozenge 1 shelby mucous membrane Q1H PRN (Reason: Sore Throat) Rx Instructions: DISSOLVE 1 LOZENGE BY MOUTH EVERY HOUR NEEDED camphor-methyl salicyl-menthol Adhesive Patch,Medicated See Rx Instructions .ROUTE .COMPLEX Rx Instructions: Apply 1 patch topically and change as needed for sciatic pain. cyanocobalamin (vitamin B-12) 1,000 mcg tablet 1,000 mcg PO DAILY Qty: 30 0RF levothyroxine 175 mcg capsule 175 mcg PO DAILY Qty: 30 0RF acetazolamide 250 mg Tablet 250 mg PO EVERY OTHER DAY Qty: 14 0RF gabapentin 600 mg Tablet 300 mg PO TID@08,14,20 Qty: 30 0RF sertraline 100 mg tablet 300 mg PO DAILY@0800 (DME) CPAP Device Eucerin Cream 1 applic TOPICAL BID PRN (Reason: Outbreak) pantoprazole 40 mg tablet,delayed release (DR/EC) 40 mg PO BID 42 Days Qty: 84 1RF methylprednisolone [Medrol (Norm)] 4 mg tablets,dose pack See Rx Instructions .ROUTE .COMPLEX Qty: 21 0RF Rx Instructions: orally per package directions albuterol sulfate 90 mcg/actuation HFA aerosol inhaler 2 inh inhalation Q4H PRN (Reason: shortness of breath or wheezing) Qty: 6.7 1RF furosemide 20 mg tablet 20 mg PO .@NOON Rx Instructions: 20 mg orally at noon ciclopirox 0.77 % cream 1 applic topical BID PRN (Reason: Rash) Rx Instructions: Apply to red areas twice a day, as needed. aripiprazole 10 mg tablet 10 mg PO DAILY Discharge Orders: Discharge ED (Routine); Ordered 04/19/24 Ordered By: Susan Lee Referrals: Fern Aguilar FNP [Primary Care Provider] - Discharge Diet: Advance as tolerated Discharge Activity: Increase activity as tolerated Patient Instructions: [place] Diet - Adult, Gastroenteritis (ED), Opioid Safety, Pain Management Activity Restrictions/Additional Instructions: Thank you for choosing [facility] for your healthcare needs today. Please realize this is an emergency room and that we are providing you with a medical screening exam and this may not be complete and all inclusive of all the testing and or work up that you may need to determine your ailment or severity of your illness. You have been screened and evaluated and felt safe for discharge. Health conditions do change or evolve sometimes and as such it is important that you follow up with your Primary Doctor to be re checked, 3-5 days is a general good time frame for follow up. You are always welcome to return to the ED for re assessment if your symptoms are worsening or you have new concerns Coding Level of Care Code ED Pharmaceutical Analyst for Luis Carlos Lee
[2024-04-19 14:44] LABS: Alanine Aminotransferase 35 U/L (0-33); Albumin Level 3.5 g/dL (3.5-5.2); Alkaline Phosphatase 182 U/L (35-105); Aspartate Amino Transferase 36 U/L (0-32); Blood Urea Nitrogen 23 mg/dL (6-20); Calcium 8.6 mg/dL (8.5-10.5); Carbon Dioxide 23 mmol/L (22-29); Chloride 98 mmol/L (98-107); Creatinine Clr Calc Pharmacy 136.6525; Globulin 3.2 g/dL (1.3-4.6); Glomerular Filtration Rate 69.7 mL/min (90-130); Glucose 103 mg/dL (65-115); Lipase 20 U/L (13-60); Osmolality Calculated 280 mOsm/kg (285-295); Sodium 133 mmol/L (136-145); Total Bilirubin 0.4 mg/dL (0.15-1.2); Total Protein 6.7 g/dL (6.6-8.7)
[2024-04-19 14:46] LABS: Lactic Sepsis W/Reflex 1.2 mmol/L (0.5-2.2)
[2024-04-19 14:49] LABS: Anion Gap 16.6 (5-19); Potassium 4.6 mmol/L (3.5-5.1)
[2024-04-19 15:02] LABS: Bilirubin Urine Negative (Negative); Blood Urine Negative (Negative); Glucose Urine UA Negative (Normal); Ketones Urine Negative (Negative); Leukocyte Esterase Urine Negative (Negative); Nitrate Urine Negative (Negative); Protein Urine Negative (Negative); Specific Gravity, Urine 1.017 (1.005-1.030); Urine Appearance Clear (CLEAR); Urine Color Yellow (Yellow); Urobilinogen Urine 0.2 mg/dL (Negative); pH Urine 6.5 (5-7)
[2024-04-19 15:04] LABS: Bacteria Urine None Seen /hpf; Hyaline Casts Urine 2.05 /lpf; RBC Urine 0-2 /hpf (0-2); Squamous Epithelial Cell Urine 0-5 /hpf (0-5); WBC Urine 0-5 /hpf (0-5)
--- NOTE | 2024-04-19 15:41 | PC.PHAR ---
Caregiver has been absent from room for longer than 30 minutes. The medication log book is in the room but pt does not want me to look at it. She wants me to wait for the caregiver, who has the list on her phone. 04/19/24 3:42pm
[2024-04-19] MEDS: sodium chloride 0.9% 1,000 ML 999 ML IV (15:42)
[2024-04-19 15:43] VITALS: BP 102/48; PULSE 95; RESP 18; O2SAT 94
[2024-04-19 17:34] VITALS: BP 101/56; PULSE 101; O2SAT 94
== END 2024-04-19 17:35 | disposition home or self-care (01) ==
PROVIDERS: Emergency Provider Emergency Medicine; PCP Nurse Practitioner Family
DX: K52.9 Noninfective gastroenteritis and colitis, unspecified (principal); E86.0 Dehydration; Z72.0 Tobacco use; I11.0 Hypertensive heart disease with heart failure; I50.9 Heart failure, unspecified
CPT/HCPCS: 36415; 80053; 81001; 83605; 83690; 85025; 87040; 96360; 96361; 99284; J7030

== ENCOUNTER 2024-10-03 16:06 | Emergency (ER) | payer MEDICAID, SELFPAY ==
--- OUTSIDE RECORDS SUMMARY | 2022-08-13 10:15 | XMS_ITS | Continuity of Care Document ---
Author Organization [facility] Address [address] [id number] [address] Phone Care Team Providers Care Black Top Spreader Machine Operator Name Role Phone Emile PEREZ MD, Jason Unavailable Unavailab le Allergies, Adverse Reactions, Alerts Substance Reaction Status Criticality NSAIDS (Non-Steroidal Anti-Inflammatory Drug) Active No Information azithromycin Active No Information bee venom protein (honey bee) Active No Information acetaminophen Active No Information Medications Medication Instructions Dosage Effective Dates (start - stop) Status Comments furosemide 40 mg tablet take 1 tablet by oral route every day 40 MG - Active bupropion HCl SR 200 mg tablet,12 hr sustained-release take 1 tablet by oral route 2 times every day 200 MG - Active Oyster Shell Calcium 500 500 mg calcium (1,250 mg) tablet - Active famotidine 20 mg tablet take 1 tablet by oral route 2 times every day 20 MG - Active levothyroxine 100 mcg capsule take 1 capsule by oral route every day 100 MCG - Active potassium chloride ER 20 mEq tablet,extended release take 1 tablet by oral route every day with food 20 MEQ - Active sertraline 25 mg tablet take 1 tablet by oral route every day 25 MG - Active cetirizine 10 mg tablet take 1 tablet by oral route every day 10 MG - Active Sharobel 0.35 mg tablet take 1 tablet by oral route every day 1.00 tablet - Active oxcarbazepine 300 mg tablet take 1 tablet by oral route 2 times every day 300 MG - Active Latuda 60 mg tablet take 1 tablet by oral route every day with food (at least 350 calories) 60 MG - Active gabapentin 400 mg capsule take 1 capsule by oral route 3 times every day 400 MG - Active fluticasone propionate 50 mcg/actuation nasal spray,suspension spray 1 - 2 spray by intranasal route every day in each nostril as needed 50-100 MCG - Active dicyclomine 10 mg capsule take 1 capsule by oral route 3 times every day 10 MG - Active loperamide 2 mg capsule take 2 capsule by oral route after 1st loose stool, followed by 1 capsule after each subsequent loose stool not to exceed 16 mg/day 4 MG - Active cyclobenzaprine 10 mg tablet take 1 tablet by oral route 3 times every day 10 MG - Active hydroxyzine HCl 25 mg tablet take 1 tablet by oral route 3 times every day as needed 25 MG - Active Icy Hot 30 %-10 % topical cream - Active epinephrine 0.3 mg/0.3 mL injection, auto-injector inject 0.3 milliliter by intramuscular route once as needed for anaphylaxis 0.3 MG - Active Banophen 25 mg capsule take 1 capsule by oral route every 4 - 6 hours as needed 25 MG - Active Throat Lozenges - Active Eucerin topical cream - Acti ve desmopressin 0.2 mg tablet take 1 tablet by oral route 2 times every day 0.2 MG - Active SF 5000 Plus 1.1 % dental cream Use as toothpaste, brush for 2 minutes spit and do not rinse. do not eat/drink for 30 minutes following use. - Active losartan 25 mg tablet take 1 tablet by oral route every day 25 MG - Active Calcium 600 + D(3) 600 mg-5 mcg (200 unit) capsule - Active norethindrone (contraceptive) 0.35 mg tablet take 1 tablet by oral route every day 1.00 tablet - Active lurasidone 80 mg tablet take 1 tablet by oral route every day with food (at least 350 calories) 80 MG - Active Ventolin HFA 90 mcg/actuation aerosol inhaler inhale 2 puff by inhalation route every 4 - 6 hours as needed 180 MCG - Active ciclopirox 0.77 % topical cream apply by topical route 2 times every day to the affected and surrounding areas of skin in the morning and evening 0.00 - Active diclofenac 1 % topical gel apply 2 gram by topical route 4 times every day to the affected area(s) 2.00 gram - Active loperamide 2 mg capsule take 2 capsule by oral route after 1st loose stool, followed by 1 capsule after each subsequent loose stool not to exceed 16 mg/day 4 MG - Active Salonpas 3.1 %-10 %-6 % topical patch - Active mupirocin 2 % topical ointment apply by topical route 3 times every day a small amount to the affected area 0.00 - Active Neosporin Plus Pain Relief 3.5 mg-10,000 unit-10 mg/gram topical cream - Active olopatadine 0.2 % eye drops instill 1 drop by ophthalmic route every day into affected eye(s) 1.00 drop - Active LidaFlex 4 % topical patch - Active Nyamyc 100,000 unit/gram topical powder apply by topical route 2 times every day to the affected area(s) 0.00 - Active Elidel 1 % topical cream apply by topical route 2 times every day a thin layer to the affected area(s) ; rub in gently and completely 0.00 - Active spironolactone 25 mg tablet take 1 tablet by oral route every day 25 MG - Active Eliquis 2.5 mg tablet take 1 tablet by oral route 2 times every day 2.5 MG - Active MELOXICAM (unknown strength) take 1 tablet by oral route every day Not Available - Active Procedures Procedure Date Limited Oral Evaluation Problem Focused Extraction, Erupted Tooth Or Exposed Maru t ([facility] Extraction, Erupted Tooth Or Exposed Maru t ([facility] Extraction, Erupted Tooth Or Exposed Maru t ([facility] Extraction, Erupted Tooth Or Exposed Maru t ([facility] Extraction, Erupted Tooth Or Exposed Maru t ([facility] Extraction, Erupted Tooth Or Exposed Maru t ([facility] Extraction, Erupted Tooth Or Exposed Maru t ([facility] Limited Oral Evaluation Problem Focused Bitewings Two Films Intraoral Periapical First Film Intraoral Periapical Each Additional Film Intraoral Periapical Each Additional Film Prophylaxis Adult Periodic Oral Eval Est Patient - Adult Medicaid Intraoral Periapical First Film Intraoral Periapical Each Additional Film Intraoral Periapical Each Additional Film Intraoral Periapical Each Additional Film Bitewings Two Films Comprehensive Oral Evaluatio n New Or Established EDR Approval Note Advance Directives Directive Yes / No Effective Date File Name No Information Encounters Encounter Description Practice Location Reason(s) For Visit Diagnoses Date Provider Providers Copied on Encounter [facility], [id number], [id number], [place] tel:[phone] [facility] No Information Emile Gomez. [address] [place], [address], [place]. tel:[phone] Referring Provider: Jason Green, [address] [place], [address]. tel:[phone] [facility], [id number], [id number], [place] tel:[phone] [facility] No Information Sun Marrufo. [address] [place] [address], [address], [place]. tel:[phone] Referring Provider: Niru Garsia, [address] [place] [address], [address]. tel:[phone] [facility], [id number] [facility] [place], [place], [id number], [place] tel:[phone] [facility] No Information Garett Ya. [address] [place], [place], [id number] , [place]. tel:[phone] Referring Provider: Bhakti Bajwa, [address] [place], [address] . tel:[phone] Family History Family Member Type Diagnosis Age At Onset No Information Payers Payer name Insurance type Covered constitution party ID Christian cartwright(s) D Medicaid [id number] Social History Type Description Quantity Date Captured Comments Alcohol Use Details No Caffeine Use Details Unknown Tobacco Use Status Moderate cigarette smoker (10-19 cigs/day) Smoking Status Heavy tobacco smoker Smoking Tobacco Use Details Cigarette: No Details Available Cigarette: 0.5 Packs per day Sex Female Gender Identity Declined To Specify Chief Complaint And Reason For Visit No Information Reason For Referral Reason For Referral No Information Plan Of Treatment Date Type Action Status Goal Tobacco cessation counseling completed History Of Present Illness Encounter Date Complaint History Of Prese nt Illness No Information Functional Status Date Functional Assessmen t No Information Instructions Date Instruction Additional Infor sophy Lifestyle education Related to D ental Examination Assessments Type Assessment Date No Information Patient Care Teams Name Effective Dates (start - stop) Status Members No Information
--- OUTSIDE RECORDS SUMMARY | 2024-10-03 16:12 | XMS_ITS | Encounter Summary ---
Author Organization [employer] Address [address] [place] [address] Care Team Providers Care Head Filter Tank Tender Helper Name Role Phone Fern Aguilar BLACK PICKLER Primary Care Provider Encounter Details Date Type Department Care Team (Late st Contact Info) Description 09/28/2004 Outpatient Historical [facility] Hoang Martinez JOINT PAIN-PELVIS (Primary Dx) Social History Tobacco Use Types Packs/Day Years Used Date Smoking Tobacco: Never Assessed Comments Unknown Sex and Gender Information Value Date Recorded Sex Assigned at Not on file Legal Sex Female 10:00 PM PARK WORKER SUPERVISOR Gender Identity Not on file Sexual Orientation Not on file documented as of this encounter Plan of Treatment Upcoming Encounters Date Type Department Care Team (Late st Contact Info) Description 12/25/2024 10:30 AM CDT Office Visit [facility] Urology [address] [place] [phone] Kathy Jackson [facility] [address] [facility] [address] [place] [address] 02/08/2025 9:30 AM PARK WORKER SUPERVISOR Office Visit [facility] [place] [address] [place] [address] Leana Pederson PA [address] [place] [phone] documented as of this encounter Visit Diagnoses Diagnosis Pain in joint, pelvic region and thigh- Primary documented in this encounter Care Teams Head Filter Tank Tender Helper Relationship Specialty Start Date End Date Fern Aguilar FNP [address] [place] [address] PCP - General Nurse Practitioner Family 05/08/20 documented as of this encounter
--- OUTSIDE RECORDS SUMMARY | 2024-10-03 16:12 | XMS_ITS | Encounter Summary ---
Author Organization [employer] Address [address] [place] [address] Care Team Providers Care Building Energy Consultant Name Role Phone Fern Aguilar RANDY Primary Care Provider [phone] Encounter Details Date Type Department Care Team (Latest Contact Info) Description 05/31/2004 Inpatient Historical [facility] PATIENT IN A BED Abby Landis MD [address] [place] [id number] BIPOLAR - MOST RECENTLY W DEPRESSION NOS (CMS/HCC) (Primary Dx) Social History Tobacco Use Types Packs/Day Years Used Date Smoking Tobacco: Never Assessed Comments Unknown Sex and Gender Information Value Date Recorded Sex Assigned at Not on file Legal Sex Female 10:00 PM CARBON CAPTURE POWER PLANT ENGINEER Gender Identity Not on file Sexual Orientation Not on file documented as of this encounter Plan of Treatment Upcoming Encounters Date Type Department Care Team (Late st Contact Info) Description 12/25/2024 10:30 AM CDT Office Visit [facility] Urology [address] [place] [address] Kathy Jackson FNP [address] [facility] [address] [place] [address] 02/08/2025 9:30 AM CARBON CAPTURE POWER PLANT ENGINEER Office Visit [facility] [place] [address] [place] [address] Leana Pederson PA [address] [place] [address] documented as of this encounter Procedures Procedure Name Priority Date/Time Associated Diagnosis Comments CBC WITH DIFFERENTIAL Routine 06/04/2004 4:45 AM CARBON CAPTURE POWER PLANT ENGINEER CBC WITH DIFFERENTIAL Routine 06/04/2004 4:45 AM CARBON CAPTURE POWER PLANT ENGINEER documented in this encounter Results * (ABNORMAL) CBC WITH DIFFERENTIAL (06/04/2004 4:45 AM CARBON CAPTURE POWER PLANT ENGINEER) NEUTROPHILS 50 45 - 70 % INTERFAC E SYSTEM LYMPHOCYTES 39 16 - 45 % INTERFAC E SYSTEM MONOCYTES 9 3 - 13 % INTERFACE SYSTEM EOSINOPHILS 3 0 - 7 % INTERFAC E SYSTEM BASOPHILS 0 0 - 2 % INTERFACE SYSTEM NEUTROPHIL ABSOLUTE 6.12 1.90 - 7.00 K/uL INTERFACE SYSTEM LYMPHOCYTE ABSOLUTE 4.77(H) 0.70 - 4.50 K/uL INTERFACE SYSTEM MONOCYTE ABSOLUTE 1.06 0.10 - 1.30 K/uL INTERFACE SYSTEM EOSINOPHIL ABSOLUTE 0.36 0.00 - 0.70 K/uL INTERFACE SYSTEM BASOPHILS ABSOLUTE 0.04 0.00 - 0.20 K/uL INTERFACE SYSTEM 06/04/2004 4:45 AM CARBON CAPTURE POWER PLANT ENGINEER us Kirit Zheng MD HEMATOLOGY ORDERABLES Final Resu lt INTERFACE SYSTEM Refer to clinic/hospital department * (ABNORMAL) CBC WITH DIFFERENTIAL (06/04/2004 4:45 AM CARBON CAPTURE POWER PLANT ENGINEER) WBC 12.4(H) 4.0 - 9.8 K/uL INTERFACE SYSTEM RBC 4.37 3.90 - 4.90 M/uL INTERFACE SYSTEM HEMOGLOBIN 14.0 11.8 - 14.8 g/dL INTERFACE SYSTEM HEMATOCRIT 44.3(H) 35.5 - 44.0 % INTERFACE SYSTEM MCV 101.4(H) 82.0 - 99.0 fL INTERFACE SYSTEM MCH 32.0 27.2 - 32.6 pg INTERFACE SYSTEM MCHC 31.6 31.5 - 35.5 % INTERFACE SYSTEM RDW 13.0 11.5 - 14.5 % INTERFACE SYSTEM RDW-STDEV 48.3 37.1 - 48.7 fL INTERFACE SYSTEM PLATELETS 202 140 - 350 K/uL INTERFACE SYSTEM MPV 12.4 9.3 - 12.4 fL INTERFACE SYSTEM 06/04/2004 4:45 AM CARBON CAPTURE POWER PLANT ENGINEER us Kirit Zheng MD HEMATOLOGY ORDERABLES Final Resu lt INTERFACE SYSTEM Refer to clinic/hospital department documented in this encounter Visit Diagnoses Diagnosis Bipolar I disorder, most recent episode (or current) depressed, unspecified (CMS/[facility])- Primary Bipolar I disorder, most recent episode (or current) depressed, unspecified documented in this encounter Care Teams Building Energy Consultant Relationship Specialty Start Date End Date Fern Aguilar FNP [address] [place] [phone] PCP - General Nurse Practitioner Family 05/08/20 documented as of this encounter
--- OUTSIDE RECORDS SUMMARY | 2024-10-03 16:12 | XMS_ITS | Encounter Summary ---
Author Organization [facility] [employer] [facility] Address [address] [place] [address] Care Team Providers Care Cashier Ticket Selling Name Role Phone Kiesha Aguilarjina PADILLA Primary Care Provider [phone] Encounter Details Date Type Department Care Team (Late st Contact Info) Description 07/24/2004 Outpatient Historical [facility] Hoang Martinez SYNCOPE AND COLLAPSE (Primary Dx) Social History Tobacco Use Types Packs/Day Years Used Date Smoking Tobacco: Never Assessed Comments Unknown Sex and Gender Information Value Date Recorded Sex Assigned at Not on file Legal Sex Female 10:00 PM INVENTORY CONTROL MANAGER Gender Identity Not on file Sexual Orientation Not on file documented as of this encounter Plan of Treatment Upcoming Encounters Date Type Department Care Team (Late st Contact Info) Description 12/25/2024 10:30 AM CDT Office Visit [facility] [address] [place] [phone] Kathy Jackson FNP [address] [facility] [address] [place] [phone] 02/08/2025 9:30 AM INVENTORY CONTROL MANAGER Office Visit [facility] [place] [address] [place] [address] Leana Pederson PA [address] [place] [address] documented as of this encounter Visit Diagnoses Diagnosis Syncope and collapse- Primary documented in this encounter Care Teams Cashier Ticket Selling Relationship Specialty Start Date End Date Fern Aguilar FNP [address] [place] [address] PCP - General Nurse Practitioner Family 05/08/20 documented as of this encounter
--- OUTSIDE RECORDS SUMMARY | 2024-10-03 16:12 | XMS_ITS | Encounter Summary ---
Author Organization [facility] Address [address] [place] [address] Care Team Providers Care Dinkey Operator Slate Name Role Phone Fern Aguilar INSPECTOR SET UP AND LAY OUT Primary Care Provider [phone] Encounter Details Date Type Department Care Team (Late st Contact Info) Description 07/24/2004 Outpatient Historical [facility] Support Services [address] [place] [address] Brandan Caldera MD [address] [facility] [address] [place] [address] Social History Tobacco Use Types Packs/Day Years Used Date Smoking Tobacco: Never Assessed Comments Unknown Sex and Gender Information Value Date Recorded Sex Assigned at Not on file Legal Sex Female 10:00 PM SENIOR OPERATOR Gender Identity Not on file Sexual Orientation Not on file documented as of this encounter Plan of Treatment Upcoming Encounters Date Type Department Care Team (Late st Contact Info) Description 12/25/2024 10:30 AM CDT Office Visit [facility] Urology [address] [place] [address] Kathy Jackson FNP [address] [facility] [address] [place] [address] 02/08/2025 9:30 AM SENIOR OPERATOR Office Visit [facility] [place] [address] [place] [address] Leana Pederson PA [address] [place] [address] documented as of this encounter Visit Diagnoses Not on filedocumented in this encounter Care Teams Dinkey Operator Slate Relationship Specialty Start Date End Date Fern Aguilar FNP [address] [place] [address] PCP - General Nurse Practitioner Family 05/08/20 documented as of this encounter
--- OUTSIDE RECORDS SUMMARY | 2024-10-03 16:12 | XMS_ITS | Clinical Summary ---
Author Organization [facility] Address [address] [place] [address] Phone Care Team Providers Care Pulp House Supervisor Name Role Phone Fern Aguilar RANDY Primary Care Provider [phone] Allergies Active Allergy Reactions Criticality Noted Date Comments Acetaminophen Other (See Comments),Swelling Low Azithromycin Other (See Comments) 07/29/2016 Venom-Honey Bee Other (See Comments) 12/28/2012 Medications cetirizine (ZYRTEC) 10 mg tablet Take 10 mg by mouth daily. Active mometasone (NASONEX) 50 mcg/actuation [place], Non-Aerosol daily. Active ziprasidone (GEODON) 80 mg Capsule Take 80 mg by mouth daily heel cementer. Active TOPIRAMATE (TOPAMAX ORAL) Take by mouth 2 times daily. Active sertraline (ZOLOFT) 50 mg tablet Take 50 mg by mouth daily. Active OTHER BCP . Active EPINEPHrine 0.3 mg/0.3 mL injection, auto-injector inject (0.3MG) by INTRAMUSCULAR route onceas needed for anaphylaxis 2 Active ascorbic acid (vitamin C) 500 mg tablet take 1 tablet by Oral route every day 2 Active triamcinolone acetonide (KENALOG) 0.1 % Cream APPLY TO AFFECTED AREA(S) TWICE DAILY 80 Gram 10 7 Active nystatin (MYCOSTATIN) 100,000 unit/gram Cream APPLY TO AFFECTED AREA(S) TWICE DAILY *USE WITH TRIAMCINOLONE CREAM* 30 Gram 10 7 Active hydrOXYzine HCl (ATARAX) 50 mg tablet Take 50 mg by mouth 3 times daily as needed for Itching. Active polyethylene glycol (MIRALAX) 17 gram Powder in Packet Take 17 Grams by mouth daily. Active nystatin, bulk, 15 billion unit Powder 1 Puff by [facility].(Non-Drug; Combo Route) route daily Powder affected to area daily. 1 Each 2 7 Active levothyroxine 100 mcg tablet Take 1 Tablet (100 mcg) by mouth daily in the morning. 90 Tablet 3 3 Active levothyroxine 150 mcg tablet Take 1 Tablet (150 mcg) by mouth daily in the morning. 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 Primary hypothyroidism 12/03/2020 Morbid obesity 12/03/2020 Diarrhea 12/03/2020 Renal failure, acute Personality disorder Eating disorder Bipolar 2 disorder Anxiety Encounters Date Type Department Care Team Description 09/25/2024 External Device Data STL ABSTRACTION Provider, Abstract 09/18/2024 External Device Data STL ABSTRACTION Provider, Abstract 08/23/2024 External Device Data STL ABSTRACTION Provider, Abstract 08/22/2024 External Device Data STL ABSTRACTION Provider, Abstract 08/21/2024 11:30 AM CDT Office Visit [facility] Urology[address] Entrance B, 3rd [place] [address] Kathy Jackson, RANDY Nocturnal enuresis (Primary Dx) 08/21/2024 External Device Data STL ABSTRACTION Provider, Abstract 07/17/2024 External Device Data STL ABSTRACTION Provider, Abstract from Last 3 Months Immunizations Immunization Administration Dates Next Due (ADACEL/BOOSTRIX)(10 YR UP) TDAP VACCINE, 0.5ML, IM 08/30/2016 Influenza Vaccine Tri Split 4+ Im 01/16/2009 Influenza Vaccine Tri Split 4+ Pf Im 02/07/2012 Family History Medical History Relation Name Comments Hypertension Father Cancer Mother Diabetes Mother Hypertension Mother Stroke Mother Relation Name Status Comments Father Mother Alive Social History Tobacco Use Types Packs/Day Years Used Date Smoking Tobacco: Every Day Smokeless Tobacco: Never Alcohol Use Standard Drinks/Week Comments No 0 (1 standard drink = 0.6 oz pur e alcohol) social Comments No Sex and Gender Information Value Date Recorded Sex Assigned at Not on file Legal Sex Female 10:00 PM OCC MED PHYSICIAN Gender Identity Not on file Sexual Orientation Not on file Last Filed Vital Signs Vital Sign Reading Time Taken Comments Blood Pressure 130/62 06/04/2022 11:08 AM OCC MED PHYSICIAN Pulse 94 06/04/2022 11:08 AM OCC MED PHYSICIAN Temperature 36.5 C (97.7 F) 07/17/2015 8:32 AM CDT Respiratory Rate 20 07/17/2015 8:32 AM CDT Oxygen Saturation 89% 06/04/2022 11:08 AM OCC MED PHYSICIAN Inhaled Oxygen Concentration - - Weight 175.5 kg (387 lb) 06/04/2021 11:48 AM OCC MED PHYSICIAN Height 165.1 cm (5' 5 ) 06/04/2022 11:08 AM OCC MED PHYSICIAN Body Mass Index 64.4 06/04/2021 11:48 AM OCC MED PHYSICIAN Plan of Treatment Upcoming Encounters Date Type Department Care Team (Late st Contact Info) Description 12/25/2024 10:30 AM CDT Office Visit [facility] Urology [address] [place] [address] Kathy Jackson FNP [address] [place] [address] 02/08/2025 9:30 AM OCC MED PHYSICIAN Office Visit [facility] [place] [address] [place] [address] Leana Pederson PA [address] [place] [address] Health Maintenance Due Date Last Done Comments Pre-Diabetes and Diabetes Screening 08/31/2008 08/31/2005 HEPATITIS B VACCINES (3 of 3 - 3-dose series) 11/10/2016 09/15/2016, 10/25/2003, 07/29/2000 PAP SMEAR 04/26/2020 04/26/2017 CERVICAL CANCER SCREENING 04/26/2022 HPV/Cotest (21-29) 04/26/2022 04/26/2017 HPV/Cotest (30-65) 04/26/2022 04/26/2017 COVID-19 Vaccine (3 - 2024-25 season) 2023 12/10/2020, 11/12/2020 INFLUENZA VACCINE (#1) 2024 , 02/07/2012, 01/11/2012, Additional history exists DTAP/TDAP/TD VACCINES (2 - Td or Tdap) 08/30/2026 08/30/2016 HPV VACCINES Aged Out No longer eligi ble based on patient's age to complete this topic Procedures Procedure Name Priority Date/Time Associated Diagnosis Comments POC URINALYSIS MICROSCOPY ONLY Routine 08/21/2024 12:17 PM CDT Nocturnal enuresis POC URINALYSIS DIPSTICK AUTOMATED Routine 08/21/2024 12:16 PM CDT Nocturnal enuresis CERV/VAG CYTO SCREEN PAP W/HPV Routine 04/26/2017 4:13 PM OCC MED PHYSICIAN Cervical smear, as part of routine gynecological examination HEMOGLOBIN A1C Routine 08/31/2005 10:10 AM CDT from Last 3 Months or Most Recently Relevant to Health Maintenance Results * (ABNORMAL) POC URINALYSIS MICROSCOPY ONLY (08/21/2024 12:17 PM CDT) WBC UA POC 6-10(A) 0 - 2 /hpf [facility] [place] RBC UA POC 0-2 0 - 2 /hpf [facility] BACTERIA UA POC 1+(A) Negative /hpf [facility] [place] YEAST POC [facility] TRICHOMONAS POC [facility] [place] SPERMATOZOA POC [facility] [place] HYALINE CAST POC [facility] [place] RBC CAST POC [facility] GRANULAR CAST POC [facility] AMORPHOUS CRYSTAL POC [facility] TRIPLE PHOS POC [facility] URIC ACID [place]AL POC [facility] CALCIUM OXALATE, URINE POC [facility] COMMENT, URINE POC [facility] [place] EPITHELIAL CELLS UA POC [facility] [place] Urine 08/21/2024 12:1 7 PM CDT [employer] CONTRACTS PARALEGAL POINT OF CARE TESTING [place] l Result Performing Organization Address [facility]/ZIP Co de Phone Number [facility] CLIA# [id number] [address] [place] [address], [place] * (ABNORMAL) POC URINALYSIS DIPSTICK AUTOMATED (08/21/2024 12:16 PM CDT) COLOR UA POC Yellow Pale to Dark Yellow [facility] CLARITY UA POC Clear Clear, Other ME [facility] [place] GLUCOSE UA POC Negative Negative, Normal [facility] BILIRUBIN UA POC Negative Negative [facility] KETONES UA POC Negative Negative [facility] SPECIFIC GRAVITY UA POC <=1.005 1.000 - 1.030 [facility] BLOOD UA POC Negative Negative [facility] C [facility] PH UA POC 6.0 5.0 - 8.0 [facility] CLIN IC [facility] [place] PROTEIN UA POC Negative Negative [facility] UROBILINOGEN UA POC 0.2 <2.0 mg/dL [facility] NITRITE UA POC Negative Negative [facility] LEUKOCYTE ESTERASE UA POC 2+(A) Negative [facility] KIT LOT NUMBER POC [phone] [facility] [place] K[facility] EXP DATE [facility] U[facility] 08/21/2024 12:1 6 PM CDT [employer] CONTRACTS PARALEGAL POINT OF CARE TESTING [place] l Result [facility] CLIA# [id number] [address] [place] [address], [place] * CERV/VAG CYTOPATH, THIN PREP EDUCATIONAL SIGN LANGUAGE INTERPRETER AND HPV (04/26/2017 4:13 PM OCC MED PHYSICIAN) CLINICAL INFORMATION SEE COMMENT 05/03/2017 8:36 AM OCC MED PHYSICIAN [facility] Comment:Oral contraceptives LAST MENSTRUAL PERIOD SEE COMMENT 05/03/2017 8:36 AM OCC MED PHYSICIAN [facility] Comment:Information not prov ided PREV PAP: 04/04/11 05/03/2017 8:36 AM OCC MED PHYSICIAN [facility] PREV BX: SEE COMMENT 05/03/2017 8:36 AM OCC MED PHYSICIAN [facility] Comment:Information not prov ided SOURCE Endocervix 05/03/2017 8:36 AM OCC MED PHYSICIAN [facility] ADEQUACY: SEE COMMENT 05/03/2017 8:36 AM OCC MED PHYSICIAN [facility] Comment: Satisfactory for evaluation. Endocervical/transformation zone component present. Age and/or menstrual status not provided PAP INTERP SEE COMMENT 05/03/2017 8:36 AM OCC MED PHYSICIAN [facility] Comment:Negative for intraep ithelial lesion or malignancy. COMMENT SEE COMMENT 05/03/2017 8:36 AM OCC MED PHYSICIAN [facility] Comment: This Pap test has been evaluated with computer assisted technology. SHELLFISH BED WORKER: SEE COMMENT 2017 8:36 AM OCC MED PHYSICIAN [facility] Comment: MLK, CT(ASCP) CT screening location: [place] [address] [address] [place] [address] HPV E6/E7 Not Detected Not Detected 05/03/2017 8:36 AM OCC MED PHYSICIAN [facility] Comment: This test was performed using the APTIMA HPV Assay ([employer] This assay detects E6/E7 viral messenger RNA (mRNA) from 14 high-risk HPV types (16,18,31,33,35,39,45,51,52,56,58,59,66,68). Genital SWAB OF ENDOCERVIX / Unknown 04/26/2017 4:13 PM OCC MED PHYSICIAN 04/26/2017 7:40 PM OCC MED PHYSICIAN Narrative [facility] - 05/03/2017 8:36 AM OCC MED PHYSICIAN Performing Organization Information: Site ID: Name: [facility] Address: [facility] [place] [address] Director: Joshua Hill MD Gracie Guidry MD PATHOLOGY/CYTOLOGY ORDERA BLES Final Result [facility] * HEMOGLOBIN A1C (08/31/2005 10:10 AM CDT) HEMOGLOBIN A1C 5.3 4.7 - 6.4 % of Hgb INTERFACE SYSTEM GLUCOSE, MEAN BLOOD 90 mg/dL INTERFACE SYSTEM 08/31/2005 10:1 0 AM CDT Brandan Churchill MD CHEMISTRY ORDERABLES Final Re sult INTERFACE SYSTEM Refer to clinic/hospital department from Last 3 Months or Most Recently Relevant to Health Maintenance Insurance [place] * Guarantor: [facility] ADMINISTRATOR Account Type Relation to Patient Date of Phone Billing Address Personal/Family Unknown [id number] [place] [address] [place] Care Teams Pulp House Supervisor Relationship Specialty Start Date End Date Fern Aguilar FNP [address] [place] [address] PCP - General Nurse Practitioner Family 05/08/20
--- OUTSIDE RECORDS SUMMARY | 2024-10-03 16:13 | XMS_ITS | Encounter Summary ---
Author Organization [facility] Address [address] [place] [address] Care Team Providers Care Ecologist Technician Name Role Phone Fern Aguilar RANDY Primary Care Provider [phone] Encounter Details Date Type Department Care Team (Late st Contact Info) Description 10/29/2004 Outpatient Historical [facility] Family Medicine [address] [place] [address] Kaiser Patel, DO [address] [phone] Social History Tobacco Use Types Packs/Day Years Used Date Smoking Tobacco: Never Assessed Comments Unknown Sex and Gender Information Value Date Recorded Sex Assigned at Not on file Legal Sex Female 10:00 PM LAWN SPECIALIST Gender Identity Not on file Sexual Orientation Not on file documented as of this encounter Plan of Treatment Upcoming Encounters Date Type Department Care Team (Late st Contact Info) Description 12/25/2024 10:30 AM CDT Office Visit [facility] [address] [place] [address] Kathy Jackson FNP [address] [place] [address] 02/08/2025 9:30 AM LAWN SPECIALIST Office Visit [facility] [place] [address] [place] [address] Leana Pederson PA [address] [place] [address] documented as of this encounter Visit Diagnoses Not on filedocumented in this encounter Care Teams Ecologist Technician Relationship Specialty Start Date End Date Fern Aguilar FNP [address] [place] [address] PCP - General Nurse Practitioner Family 05/08/20 documented as of this encounter
--- OUTSIDE RECORDS SUMMARY | 2024-10-03 16:13 | XMS_ITS | Encounter Summary ---
Author Organization [facility] Address [address] [place] [address] Care Team Providers Care Shank Taper Name Role Phone Fern Aguilar RANDY Primary Care Provider [phone] Encounter Details Date Type Department Care Team (Late st Contact Info) Description 02/03/2005 Outpatient Historical [facility] Family Medicine [address] [place] [address] Kaiser Patel, DO [address] [phone] Social History Tobacco Use Types Packs/Day Years Used Date Smoking Tobacco: Never Assessed Comments Unknown Sex and Gender Information Value Date Recorded Sex Assigned at Not on file Legal Sex Female 10:00 PM SQL SERVER DBA DEVELOPER Gender Identity Not on file Sexual Orientation Not on file documented as of this encounter Plan of Treatment Upcoming Encounters Date Type Department Care Team (Late st Contact Info) Description 12/25/2024 10:30 AM CDT Office Visit [facility] Urology [address] [place] [address] Kathy Jackson FNP [address] [place] [address] 02/08/2025 9:30 AM SQL SERVER DBA DEVELOPER Office Visit [facility] [place] [address] [place] [address] Leana Pederson PA [address] [place] [address] documented as of this encounter Visit Diagnoses Not on filedocumented in this encounter Care Teams Shank Taper Relationship Specialty Start Date End Date Fern Aguilar FNP [address] [place] [address] PCP - General Nurse Practitioner Family 05/08/20 documented as of this encounter
--- OUTSIDE RECORDS SUMMARY | 2024-10-03 16:13 | XMS_ITS | Encounter Summary ---
Author Organization [employer] [facility] Address [address] [place] [address] Care Team Providers Care Operations Supervisor 2Nd Shift Name Role Phone Fern Aguilar CAPTION WRITER Primary Care Provider [phone] Encounter Details Date Type Department Care Team (Late st Contact Info) Description 09/30/2004 Outpatient Historical [facility] WASH Stitch, Marilee TOXIC EFFECT VENOM (Primary Dx) Social History Tobacco Use Types Packs/Day Years Used Date Smoking Tobacco: Never Assessed Comments Unknown Sex and Gender Information Value Date Recorded Sex Assigned at Not on file Legal Sex Female 10:00 PM CONCRETE PUDDLER Gender Identity Not on file Sexual Orientation Not on file documented as of this encounter Plan of Treatment Upcoming Encounters Date Type Department Care Team (Late st Contact Info) Description 12/25/2024 10:30 AM CDT Office Visit [facility] [address] [place] [phone] Kathy Jackson FNP [address] [facility] [address] [place] [phone] 02/08/2025 9:30 AM CONCRETE PUDDLER Office Visit [facility] [address] [place] [address] Leana Pederson PA [address] [place] [address] documented as of this encounter Visit Diagnoses Diagnosis Toxic effect of venom(989.5)- Primary Toxic effect of venom documented in this encounter Care Teams Operations Supervisor 2Nd Shift Relationship Specialty Start Date End Date Fern Aguilar FNP [address] [place] [address] PCP - General Nurse Practitioner Family 05/08/20 documented as of this encounter
--- OUTSIDE RECORDS SUMMARY | 2024-10-03 16:13 | XMS_ITS | Encounter Summary ---
Author Organization [facility] Address [address] [place] [address] Care Team Providers Care Division Order Technician Name Role Phone Fern Aguilar RANDY Primary Care Provider [phone] Reason for Referral * Radiology Services (Routine) - Closed Specialty Diagnoses / Procedures Referred By Debra chaves Referred To Contact Radiology Diagnoses Peripheral edema Procedures US VENOUS DOPPLER LEG BILATERAL [facility] Pre-Registration [place] CALL TO MAKE APPOINTMENT ONLY [address] [place] [address] Phone: tel: fax: [facility] Ultrasound [place] [address] [place] [address] Phone: tel: fax: Referral ID Status Reason Start Date Expiration Date V isits Requested Visits Authorized [id number] Closed [facility] View CTS to Schedule 05/08/2020 06/08/2021 1 1 IVER Encounter Details Date Type Department Care Team (Late st Contact Info) Description 05/08/2020 Ancillary Orders [facility] Pre-Registration [place] CALL TO MAKE APPOINTMENT ONLY [address] [place] [address] [facility], External [place] [address] Peripheral edema Social History Tobacco Use Types Packs/Day Years Used Date Smoking Tobacco: Never Assessed Comments Unknown Sex and Gender Information Value Date Recorded Sex Assigned at Not on file Legal Sex Female 9:56 AM RECEIVER Gender Identity Not on file Sexual Orientation Not on file documented as of this encounter Plan of Treatment Not on file documented as of this encounter Results * US VENOUS DOPPLER LEG BILATERAL (06/04/2020 2:26 PM RECEIVER) Anatomical Region Laterality Modality Lower Extremity Ultrasound 06/04/2020 1:29 PM RECEIVER Narrative 06/05/2020 5:32 PM RECEIVER [facility] Radiology Services - Noninvasive Vascular [address] [address] Noninvasive Vascular Lab Venous Exam Complete Lower Extremity Duplex Patient: Deann Vega Study ID: US VENOUS DOPPLE Gender: F : 1985 Age: 35 Room: Height: Weight: BSA: Pt status: Outpatient Study Date: 06/04/2020 Study Time: 01:29:03 PM BSA: Ordering: [facility], External Provider Interpreting:Jonnathan Jaeger Envelope Sealer Operator: Kassi Barbour History: Edema of both lower extremities. Risk factors: Morbidly obese. ( 450# ) Summary Doppler venous of the lower extremities demonstrates patent flow which is spontaneous, phasic and augments well. Competence is demonstrated. No pulsatility is noted. No intraluminal echoes are noted. Impression: No evidence of deep or superficial vein thrombosis involving the right lower extremity and left lower extremity. Technically difficult exam with lack of compressibility, likely due to body habitus. Study data: Complete lower extremity venous duplex evaluation. Doppler flow study including spectral analysis, color and rios scale imaging. Ethnicity: Ethnicity: white. Location: Vascular laboratory. Patient status: Outpatient. Study status: Routine. Procedure: A vascular evaluation was performed. Image quality was good. Venous flow and imaging: - Right common femoral - Patent; Normal phasicity; spontaneous; noncompressible; normal augmentation Difficulty compressing due to body habitus. - Right greater saphenous - Patent; Normal phasicity; spontaneous; noncompressible; normal augmentation Due to body habitus. - Right profunda femoral - Patent; Normal phasicity; spontaneous; noncompressible; normal augmentation Due to body habitus. - Right femoral - Patent; Normal phasicity; spontaneous; noncompressible; normal augmentation Due to body habitus. - Right popliteal - Patent; Normal phasicity; spontaneous; compressible; normal augmentation - Right lesser saphenous - Patent; Compressible - Right posterior tibial - Patent; Normal phasicity; spontaneous; compressible; normal augmentation Not Well Seen. - Right peroneal - Patent; Compressible; normal augmentation Not Well Seen. - Right gastrocnemius - Compressible - Right soleal - Compressible - Left common femoral - Patent; Normal phasicity; spontaneous; partially compressible; normal augmentation Difficulty compressing due to body habitus. - Left greater saphenous - Patent; Normal phasicity; spontaneous; compressible; normal augmentation - Left profunda femoral - Patent; Normal phasicity; spontaneous; compressible; normal augmentation - Left femoral - Patent; Normal phasicity; spontaneous; compressible; normal augmentation - Left popliteal - Patent; Normal phasicity; spontaneous; compressible; normal augmentation - Left lesser saphenous - Patent; Compressible Not Well Seen. - Left posterior tibial - Patent; Normal phasicity; spontaneous; compressible; normal augmentation - Left peroneal - Patent; Normal phasicity; spontaneous; compressible; normal augmentation - Left gastrocnemius - Compressible - Left soleal - Compressible Prepared and Electronically Authenticated Jonnathan Jaeger Confirmed 06/05/2020 17:31 Procedure Note Jonnathan Jaeger MD - 06/05/2020 [facility] Radiology Services - Noninvasive Vascular [address] [address] Noninvasive Vascular Lab Venous Exam Complete Lower Extremity Duplex Patient: Deann Vega Study ID: US VENOUS DOPPLE Gender: F : 1985 Age: 35 Room: Height: Weight: BSA: Pt status: Outpatient Study Date: 06/04/2020 Study Time: 01:29:03 PM BSA: Ordering: [facility], External Provider Interpreting:Jonnathan Jaeger Envelope Sealer Operator: Kassi Barbour History: Edema of both lower extremities. Risk factors: Morbidly obese. ( 450# ) Summary Doppler venous of the lower extremities demonstrates patent flow which is spontaneous, phasic and augments well. Competence is demonstrated. No pulsatility is noted. No intraluminal echoes are noted. Impression: No evidence of deep or superficial vein thrombosis involving the right lower extremity and left lower extremity. Technically difficult exam with lack of compressibility, likely due to body habitus. Study data: Complete lower extremity venous duplex evaluation. Doppler flow study including spectral analysis, color and rios scale imaging. Ethnicity: Ethnicity: white. Location: Vascular laboratory. Patient status: Outpatient. Study status: Routine. Procedure: A vascular evaluation was performed. Image quality was good. Venous flow and imaging: - Right common femoral - Patent; Normal phasicity; spontaneous; noncompressible; normal augmentation Difficulty compressing due to body habitus. - Right greater saphenous - Patent; Normal phasicity; spontaneous; noncompressible; normal augmentation Due to body habitus. - Right profunda femoral - Patent; Normal phasicity; spontaneous; noncompressible; normal augmentation Due to body habitus. - Right femoral - Patent; Normal phasicity; spontaneous; noncompressible; normal augmentation Due to body habitus. - Right popliteal - Patent; Normal phasicity; spontaneous; compressible; normal augmentation - Right lesser saphenous - Patent; Compressible - Right posterior tibial - Patent; Normal phasicity; spontaneous; compressible; normal augmentation Not Well Seen. - Right peroneal - Patent; Compressible; normal augmentation Not Well Seen. - Right gastrocnemius - Compressible - Right soleal - Compressible - Left common femoral - Patent; Normal phasicity; spontaneous; partially compressible; normal augmentation Difficulty compressing due to body habitus. - Left greater saphenous - Patent; Normal phasicity; spontaneous; compressible; normal augmentation - Left profunda femoral - Patent; Normal phasicity; spontaneous; compressible; normal augmentation - Left femoral - Patent; Normal phasicity; spontaneous; compressible; normal augmentation - Left popliteal - Patent; Normal phasicity; spontaneous; compressible; normal augmentation - Left lesser saphenous - Patent; Compressible Not Well Seen. - Left posterior tibial - Patent; Normal phasicity; spontaneous; compressible; normal augmentation - Left peroneal - Patent; Normal phasicity; spontaneous; compressible; normal augmentation - Left gastrocnemius - Compressible - Left soleal - Compressible Prepared and Electronically Authenticated Jonnathan Jaeger Confirmed 06/05/2020 17:31 External Provider [facility] ORDERABLES Final Resu lt documented in this encounter Visit Diagnoses Diagnosis Peripheral edema Edema Peripheral edema Edema documented in this encounter Care Teams Division Order Technician Relationship Specialty Start Date End Date Fern Aguilar FNP [address] [place] [phone] PCP - General Nurse Practitioner Family 05/08/20 documented as of this encounter
--- OUTSIDE RECORDS SUMMARY | 2024-10-03 16:13 | XMS_ITS | Encounter Summary ---
Author Organization [employer] [facility] Address [address] [place] [address] Care Team Providers Care Hand Stemmer Name Role Phone Fern Aguilar Primary Care Provider [phone] Encounter Details Date Type Department Care Team (Late st Contact Info) Description 02/03/2001 Outpatient Historical [facility] Social History Tobacco Use Types Packs/Day Years Used Date Smoking Tobacco: Never Assessed Comments Unknown Sex and Gender Information Value Date Recorded Sex Assigned at Not on file Legal Sex Female 10:00 PM FILM PROJECTOR OPERATOR Gender Identity Not on file Sexual Orientation Not on file documented as of this encounter Plan of Treatment Upcoming Encounters Date Type Department Care Team (Late st Contact Info) Description 12/25/2024 10:30 AM CDT [facility] [address] [place] [address] Kathy Jackson FNP [address] [place] [address] 02/08/2025 9:30 AM FILM PROJECTOR OPERATOR Office Visit [facility] [address] [place] [address] Leana Pederson PA [address] [place] [address] documented as of this encounter Visit Diagnoses Not on filedocumented in this encounter Care Teams Hand Stemmer Relationship Specialty Start Date End Date Fern Aguilar FNP [address] [place] [address] PCP - General Nurse Practitioner Family 05/08/20 documented as of this encounter
--- OUTSIDE RECORDS SUMMARY | 2024-10-03 16:13 | XMS_ITS | Encounter Summary ---
Author Organization [employer] Address [address] [place] [address] Care Team Providers Care Doughnut Machine Operator Name Role Phone Fern Aguilar [facility] Primary Care Provider [phone] Encounter Details Date Type Department Care Team (Late st Contact Info) Description 11/25/2004 Outpatient Historical [facility] EMERGENCY ROOM WASH Er, Authorized P NO ADDRESS ON FILE Shust, Chauncey POISONING-AROM ANALGESICS NEC (Primary Dx) Social History Tobacco Use Types Packs/Day Years Used Date Smoking Tobacco: Never Assessed Comments Unknown Sex and Gender Information Value Date Recorded Sex Assigned at Not on file Legal Sex Female 10:00 PM CLIENT PORTFOLIO MANAGER Gender Identity Not on file Sexual Orientation Not on file documented as of this encounter Plan of Treatment Upcoming Encounters Date Type Department Care Team (Late st Contact Info) Description 12/25/2024 10:30 AM CDT Office Visit [facility] [address] [place] [address] Kathy Jackson [address] [place] [address] 02/08/2025 9:30 AM CLIENT PORTFOLIO MANAGER Office Visit [facility] [address] [place] [address] Leana Pederson PA [address] [place] [address] documented as of this encounter Procedures Procedure Name Priority Date/Time Associated Diagnosis Comments ACETAMINOPHEN LEVEL Routine 11/25/2004 1 0:15 PM CDT CBC WITH DIFFERENTIAL Routine 11/25/2004 7:35 PM CDT CBC WITH DIFFERENTIAL Routine 11/25/2004 7:35 PM CDT PTT Routine 11/25/2004 7:35 PM CDT PROTIME-INR Routine 11/25/2004 7:35 PM CDT ETHANOL LEVEL Routine 11/25/2004 7:35 PM CDT ACETAMINOPHEN LEVEL Routine 11/25/2004 7 :35 PM CDT HEPATIC FUNCTION PANEL Routine 5 7:35 PM CDT BASIC METABOLIC PANEL Routine 11/25/2004 7:35 PM CDT DRUG SCREEN, URINE Routine 11/25/2004 7: 05 PM CDT HCG QUALITATIVE, URINE Routine 5 7:05 PM CDT documented in this encounter Results * (ABNORMAL) ACETAMINOPHEN LEVEL (11/25/2004 10:15 PM CDT) ACETAMINOPHEN LEVEL 284.3(AA) 10.0 - 20.0 ug/mL INTERFACE SYSTEM Comment:Results called to ER physician at 11/25/2004 10:42 PM and read back verified. 11/25/2004 10:1 5 PM CDT us Chauncey Shust CHEMISTRY ORDERABLES Final Resul t INTERFACE SYSTEM Refer to clinic/hospital department * (ABNORMAL) BASIC METABOLIC PANEL (11/25/2004 7:35 PM CDT) GLUCOSE 111(H) 65 - 109 mg/dL INTERFACE SYSTEM CREATININE 0.7 0.4 - 1.2 mg/dL INTERFACE SYSTEM CALCIUM 8.5(L) 8.6 - 10.2 mg/dL INTERFACE SYSTEM BUN 18 6 - 20 mg/dL INTERFACE SYSTEM SODIUM 136 135 - 145 mmol/L INTERFACE SYSTEM POTASSIUM 5.2(H) 3.5 - 4.9 mmol/L INTERFACE SYSTEM CHLORIDE 110(H) 96 - 108 mmol/L INTERFACE SYSTEM CO2 20(L) 22 - 30 mmol/L INTERFACE SYSTEM 11/25/2004 7:35 PM CD[facility] Final Resul t INTERFACE SYSTEM Refer to clinic/hospital department * (ABNORMAL) CBC WITH DIFFERENTIAL (11/25/2004 7:35 PM CDT) NEUTROPHIL ABSOLUTE 11.15(H) 1.90 - 7.00 K/uL INTERFACE SYSTEM LYMPHOCYTE ABSOLUTE 5.31(H) 0.70 - 4.50 K/uL INTERFACE SYSTEM MONOCYTE ABSOLUTE 0.53 0.10 - 1.30 K/uL INTERFACE SYSTEM EOSINOPHIL ABSOLUTE 0.53 0.00 - 0.70 K/uL INTERFACE SYSTEM BASOPHILS ABSOLUTE 0.18 0.00 - 0.20 K/uL INTERFACE SYSTEM NEUTROPHILS, SEG 63 45 - 70 % INT ERFACE SYSTEM LYMPHOCYTES 30 16 - 45 % INTERFAC E SYSTEM MONOCYTES 3 3 - 13 % INTERFACE SYSTEM EOSINOPHILS 3 0 - 7 % INTERFAC E SYSTEM BASOPHILS 1 0 - 2 % INTERFACE SYSTEM PLATELET EST. Normal Normal INTERF ROMULO SYSTEM MACROCYTES Slight INTERFACE SYSTEM 11/25/2004 7:35 PM CDT Chauncey [employer] HEMATOLOGY ORDERABLES Final Resu lt INTERFACE SYSTEM Refer to clinic/hospital department * (ABNORMAL) CBC WITH DIFFERENTIAL (11/25/2004 7:35 PM CDT) WBC 17.7(H) 4.0 - 9.8 K/uL INTERFACE SYSTEM RBC 4.01 3.90 - 4.90 M/uL INTERFACE SYSTEM HEMOGLOBIN 12.9 11.8 - 14.8 g/dL INTERFACE SYSTEM HEMATOCRIT 39.9 35.5 - 44.0 % INTERFACE SYSTEM MCV 99.5(H) 82.0 - 99.0 fL INTERFACE SYSTEM MCH 32.2 27.2 - 32.6 pg INTERFACE SYSTEM MCHC 32.3 31.5 - 35.5 % INTERFACE SYSTEM RDW 12.7 11.5 - 14.5 % INTERFACE SYSTEM RDW-STDEV 46.3 37.1 - 48.7 fL INTERFACE SYSTEM PLATELETS 234 140 - 350 K/uL INTERFACE SYSTEM MPV 11.3 9.3 - 12.4 fL INTERFACE SYSTEM 11/25/2004 7:35 PM CDT Chauncey Maria HEMATOLOGY ORDERABLES Final Resu lt Performing Organization Address [facility] Co de Phone Number INTERFACE SYSTEM Refer to clinic/hospital department * (ABNORMAL) ACETAMINOPHEN LEVEL (11/25/2004 7:35 PM CDT) ACETAMINOPHEN LEVEL >300.0(AA ) 10.0 - 20.0 ug/mL INTERFACE SYSTEM Comment:Results called to Dr Maria at 11/25/2004 8:21 PM by [facility] and read back verified. 11/25/2004 7:35 PM CDT Chauncey Maria CHEMISTRY ORDERABLES Final Resul t Performing Organization Address [facility] Phone Number INTERFACE SYSTEM Refer to clinic/hospital department * PTT (11/25/2004 7:35 PM CDT) PTT 23.5 21.1 - 34.8 Seconds INTERFACE SYSTEM 11/25/2004 7:35 PM CDT Chauncey Maria HEMATOLOGY ORDERABLES Final Resu lt Performing Organization Address [facility] Co de Phone Number INTERFACE SYSTEM Refer to clinic/hospital department * PROTIME-INR (11/25/2004 7:35 PM CDT) PROTIME 13.7 12.4 - 14.7 Seconds INTERFACE SYSTEM INR 1.1 0.9 - 1.1 INTERFACE SYSTEM Comment: INR Therapeutic Range: Adult: 2.0 - 3.0 for pulmonary embolism or prophylaxis against venous thrombosis or systemic embolization. 2.0 - 3.0 for patients with tissue heart valves. 2.5 - 3.5 for patients with mechanical heart valves or post [place]. Pediatric (12 years and under): 1.5 - 3.0 Although the target range in children is not well established , INR values of 1.5 - 3.0 are recommended for most patients. Higher values have been used in children with prosthetic cardiac valves and hereditary clotting disorders. (<3 days) therapeutic ranges have not been established. 11/25/2004 7:35 PM CDT [employer] HEMATOLOGY ORDERABLES Final Resu lt Performing Organization Address [facility] Phone Number INTERFACE SYSTEM Refer to clinic/hospital department * (ABNORMAL) HEPATIC FUNCTION PANEL (11/25/2004 7:35 PM CDT) AST 22 12 - 32 U/L INTERFACE SYSTEM ALKALINE PHOSPHATASE 77 35 - 104 U/L INTERFACE SYSTEM BILIRUBIN TOTAL 0.2 0.2 - 1.0 mg/dL INTERFACE SYSTEM ALBUMIN 3.0(L) 3.4 - 4.8 g/dL INTERFACE SYSTEM TOTAL PROTEIN 6.4 6.0 - 8.3 g/dL INTERFACE SYSTEM ALT 21 0 - 31 U/L INTERFACE SYSTEM BILIRUBIN DIRECT <0.1(L) 0.0 - 0.3 mg/dL INTERFACE SYSTEM 11/25/2004 7:35 PM CDT [employer] CHEMISTRY ORDERABLES Final Resul t Performing Organization Address [facility] Phone Number INTERFACE SYSTEM Refer to clinic/hospital department * ETHANOL LEVEL (11/25/2004 7:35 PM CDT) ETHANOL <10 <=10 mg/dL INTERFACE SYSTEM 11/25/2004 7:35 PM CDT [employer] CHEMISTRY ORDERABLES Final Resul t Performing Organization Address [facility] Phone Number INTERFACE SYSTEM Refer to clinic/hospital department * HCG QUALITATIVE, URINE (11/25/2004 7:05 PM CDT) SPECIFIC GRAVITY UA 1.010 1.001 - 1.035 INTERFACE SYSTEM HCG QUAL URINE Negative Negative INTER FACE SYSTEM 11/25/2004 7:05 PM CDT Chauncey Maria URINE ORDERABLES Final Result Performing Organization Address [facility] Phone Number INTERFACE SYSTEM Refer to clinic/hospital department * DRUG SCREEN, URINE (11/25/2004 7:05 PM CDT) COMMENT, TOXICOLOGY See Separate Comment INTERFACE SYSTEM Comment: The urine sample was not handled as a legal specimen and was received wi thout a chain of custody. The results should be used only for medical purposes. A confirmation is recommended for all presumptive positive results. A negative result indicates the analyte, if present, is below the screening threshold. Drug Ref. Range Screening Threshold Amphetamines Negative 500 ng/mL Barbiturates Negative 200 ng/mL Benzodiazepines Negative 100 ng/mL Cannabinoids Negative 50 ng/mL Cocaine Metabolite Negative 300 ng/mL Opiate Negative 300 ng/mL Phencyclidine Negative 25 ng/mL AMPHETAMINE QUAL, URINE Negative INTERFACE SYSTEM BARBITURATE QUAL, URINE Negative INTERFACE SYSTEM BENZODIAZEPINE QUAL, URINE Negative INTERFACE SYSTEM CANNABINOIDS QUAL, URINE Negative INTERFACE SYSTEM COCAINE QUAL URINE Negative I NTERFACE SYSTEM OPIATE QUAL, URINE Negative I NTERFACE SYSTEM PCP QUAL, URINE Negative INTE RFACE SYSTEM 11/25/2004 7:05 PM CDT Chauncey Maria URINE ORDERABLES Final Result Performing Organization Address [facility] Phone Number INTERFACE SYSTEM Refer to clinic/hospital department documented in this encounter Visit Diagnoses Diagnosis Poisoning by aromatic analgesics, not elsewhere classified(965.4)- Primary Poisoning by aromatic analgesics, not elsewhere classified documented in this encounter Care Teams Doughnut Machine Operator Relationship Specialty Start Date End Date Fern Aguilar FNP [address] [place] [address] PCP - General Nurse Practitioner Family 05/08/20 documented as of this encounter
--- OUTSIDE RECORDS SUMMARY | 2024-10-03 16:13 | XMS_ITS | Encounter Summary ---
Author Organization [employer] Address [address] [place] [address] Care Team Providers Care Internet Programmer Name Role Phone Fern Aguilar PROFESSOR OF PRACTICE Primary Care Provider [phone] Encounter Details Date Type Department Care Team (Latest Contact Info) Description 11/17/2004 Outpatient Historical [facility] Hoang Martinez JOINT PAIN-L/LEG (Primary Dx) Social History Tobacco Use Types Packs/Day Years Used Date Smoking Tobacco: Never Assessed Comments Unknown Sex and Gender Information Value Date Recorded Sex Assigned at Not on file Legal Sex Female 10:00 PM STAFF SOFTWARE ENGINEER Gender Identity Not on file Sexual Orientation Not on file documented as of this encounter Plan of Treatment Upcoming Encounters Date Type Department Care Team (Late st Contact Info) Description 12/25/2024 10:30 AM CDT Office Visit [facility] Urology [address] [place] [phone] Kathy Jackson [facility] [address] [facility] [address] [place] [address] 02/08/2025 9:30 AM STAFF SOFTWARE ENGINEER Office Visit [facility] [address] [place] [address] Leana Pederson PA [address] [place] [address] documented as of this encounter Visit Diagnoses Diagnosis Pain in joint, lower leg- Primary documented in this encounter Care Teams Internet Programmer Relationship Specialty Start Date End Date Fern Aguilar FNP [address] [place] [address] PCP - General Nurse Practitioner Family 05/08/20 documented as of this encounter
--- OUTSIDE RECORDS SUMMARY | 2024-10-03 16:13 | XMS_ITS | Encounter Summary ---
Author Organization [employer] Address [address] [place] [address] Care Team Providers Care Assistant To The President Name Role Phone Fern Aguilar SOLDER LEVELER PRINTED CIRCUIT BOARDS Primary Care Provider [phone] Encounter Details Date Type Department Care Team (Latest Contact Info) Description 11/25/2004 Inpatient Historical [facility] INPATIENT IN BED Rajeev Kyle DO NO ADDRESS ON FILE POISONING-AROM ANALGESICS NEC (Primary Dx) Social History Tobacco Use Types Packs/Day Years Used Date Smoking Tobacco: Never Assessed Comments Unknown Sex and Gender Information Value Date Recorded Sex Assigned at Not on file Legal Sex Female 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 Gender Identity Not on file Sexual Orientation Not on file documented as of this encounter Plan of Treatment Upcoming Encounters Date Type Department Care Team (Late st Contact Info) Description 12/25/2024 10:30 AM CDT Office Visit [facility] Urology [address] [place] [address] Kathy Jackson FNP [address] [facility] [address] [place] [address] 02/08/2025 9:30 AM ASSISTANT WAREHOUSE MANAGER Office Visit [facility] [address] [place] [address] Leana Pederson PA [address] [place] [address] documented as of this encounter Procedures Procedure Name Priority Date/Time Associated Diagnosis Comments ACETAMINOPHEN LEVEL Routine 11/28/2004 2 :32 PM CDT CBC WITH DIFFERENTIAL Routine 11/28/2004 3:10 AM CDT CBC WITH DIFFERENTIAL Routine 11/28/2004 3:10 AM CDT CBC WITH DIFFERENTIAL Routine 11/27/2004 5:00 AM CDT CBC WITH DIFFERENTIAL Routine 11/27/2004 5:00 AM CDT PROTIME-INR Routine 11/26/2004 8:23 AM CDT LITHIUM LEVEL Routine 11/26/2004 8:23 AM CDT URINALYSIS W/REFLEX MICROSCOPIC Routine 11/26/2004 8:00 AM CDT URINALYSIS W/REFLEX MICROSCOPIC Routine 11/26/2004 8:00 AM CDT ACETAMINOPHEN LEVEL Routine 11/26/2004 5 :00 AM CDT HEPATIC FUNCTION PANEL Routine 5 5:00 AM CDT BASIC METABOLIC PANEL Routine 11/26/2004 5:00 AM CDT SALICYLATE LEVEL Routine 11/25/2004 10:1 5 PM CDT documented in this encounter Results * (ABNORMAL) ACETAMINOPHEN LEVEL (11/28/2004 2:32 PM CDT) ACETAMINOPHEN LEVEL <0.7(L) 10.0 - 20.0 ug/mL INTERFACE SYSTEM 11/28/2004 2:32 PM CDT us Rajeev Kyle DO CHEMISTRY ORDERABLES Final R esult INTERFACE SYSTEM Refer to clinic/hospital department * (ABNORMAL) CBC WITH DIFFERENTIAL (11/28/2004 3:10 AM CDT) [facility] NEUTROPHILS 55 45 - 70 % INTERFAC E SYSTEM LYMPHOCYTES 33 16 - 45 % INTERFAC E SYSTEM MONOCYTES 7 3 - 13 % INTERFACE SYSTEM EOSINOPHILS 4 0 - 7 % INTERFAC E SYSTEM BASOPHILS 0 0 - 2 % INTERFACE SYSTEM NEUTROPHIL ABSOLUTE 7.51(H) 1.90 - 7.00 K/uL INTERFACE SYSTEM LYMPHOCYTE ABSOLUTE 4.44 0.70 - 4.50 K/uL INTERFACE SYSTEM MONOCYTE ABSOLUTE 0.96 0.10 - 1.30 K/uL INTERFACE SYSTEM EOSINOPHIL ABSOLUTE 0.60 0.00 - 0.70 K/uL INTERFACE SYSTEM BASOPHILS ABSOLUTE 0.05 0.00 - 0.20 K/uL INTERFACE SYSTEM 11/28/2004 3:10 AM CDT [facility] HEMATOLOGY ORDERABLES Final Result Performing Organization Address [facility] Phone Number INTERFACE SYSTEM Refer to clinic/hospital department * (ABNORMAL) CBC WITH DIFFERENTIAL (11/28/2004 3:10 AM CDT) [facility] WBC 13.6(H) 4.0 - 9.8 K/uL INTERFACE SYSTEM RBC 4.35 3.90 - 4.90 M/uL INTERFACE SYSTEM HEMOGLOBIN 14.2 11.8 - 14.8 g/dL INTERFACE SYSTEM HEMATOCRIT 42.4 35.5 - 44.0 % INTERFACE SYSTEM MCV 97.5 82.0 - 99.0 fL INTERFACE SYSTEM MCH 32.6 27.2 - 32.6 pg INTERFACE SYSTEM MCHC 33.5 31.5 - 35.5 % INTERFACE SYSTEM RDW 12.8 11.5 - 14.5 % INTERFACE SYSTEM RDW-STDEV 46.1 37.1 - 48.7 fL INTERFACE SYSTEM PLATELETS 242 140 - 350 K/uL INTERFACE SYSTEM MPV 11.7 9.3 - 12.4 fL INTERFACE SYSTEM 11/28/2004 3:10 AM CDT [facility] HEMATOLOGY ORDERABLES Final Result Performing Organization Address [facility] Phone Number INTERFACE SYSTEM Refer to clinic/hospital department * (ABNORMAL) CBC WITH DIFFERENTIAL (11/27/2004 5:00 AM CDT) NEUTROPHIL ABSOLUTE 7.95(H) 1.90 - 7.00 K/uL INTERFACE SYSTEM LYMPHOCYTE ABSOLUTE 4.79(H) 0.70 - 4.50 K/uL INTERFACE SYSTEM MONOCYTE ABSOLUTE 0.14 0.10 - 1.30 K/uL INTERFACE SYSTEM EOSINOPHIL ABSOLUTE 0.69 0.00 - 0.70 K/uL INTERFACE SYSTEM BASOPHILS ABSOLUTE 0.14 0.00 - 0.20 K/uL INTERFACE SYSTEM NEUTROPHILS, SEG 58 45 - 70 % INT ERFACE SYSTEM LYMPHOCYTES 33 16 - 45 % INTERFAC E SYSTEM MONOCYTES 1(L) 3 - 13 % INTERFACE SYSTEM EOSINOPHILS 5 0 - 7 % INTERFAC E SYSTEM BASOPHILS 1 0 - 2 % INTERFACE SYSTEM ATYPICAL LYMPHOCYTE 2 0 - 5 % INTERFACE SYSTEM PLATELET EST. Normal Normal INTERF ROMULO SYSTEM RBC MORPHOLOGY Normal Normal INTER FACE SYSTEM 11/27/2004 5:00 AM CDT [employer] Ann [employer]fidel DO HEMATOLOGY ORDERABLES Final Result Performing Organization Address [facility] de Phone Number INTERFACE SYSTEM Refer to clinic/hospital department * (ABNORMAL) CBC WITH DIFFERENTIAL (11/27/2004 5:00 AM CDT) WBC 13.7(H) 4.0 - 9.8 K/uL INTERFACE SYSTEM RBC 4.22 3.90 - 4.90 M/uL INTERFACE SYSTEM HEMOGLOBIN 14.0 11.8 - 14.8 g/dL INTERFACE SYSTEM HEMATOCRIT 41.7 35.5 - 44.0 % INTERFACE SYSTEM MCV 98.8 82.0 - 99.0 fL INTERFACE SYSTEM MCH 33.2(H) 27.2 - 32.6 pg INTERFACE SYSTEM MCHC 33.6 31.5 - 35.5 % INTERFACE SYSTEM RDW 12.9 11.5 - 14.5 % INTERFACE SYSTEM RDW-STDEV 46.4 37.1 - 48.7 fL INTERFACE SYSTEM PLATELETS 186 140 - 350 K/uL INTERFACE SYSTEM MPV 11.3 9.3 - 12.4 fL INTERFACE SYSTEM 11/27/2004 5:00 AM CDT [employer] Ann [employer]fidel DO HEMATOLOGY ORDERABLES Final Result Performing Organization Address [facility] Co de Phone Number INTERFACE SYSTEM Refer to clinic/hospital department * (ABNORMAL) PROTIME-INR (11/26/2004 8:23 AM CDT) PROTIME 15.1(H) 12.4 - 14.7 Seconds INTERFACE SYSTEM INR 1.3(H) 0.9 - 1.1 INTERFACE SYSTEM Comment: INR Therapeutic Range: Adult: 2.0 - 3.0 for pulmonary embolism or prophylaxis against venous thrombosis or systemic embolization. 2.0 - 3.0 for patients with tissue heart valves. 2.5 - 3.5 for patients with mechanical heart valves or post [place]. Pediatric (12 years and under): 1.5 - 3.0 Although the target range in children is not well established , INR values of 1.5 - 3.0 are recommended for most patients. Higher values have been used in children with prosthetic cardiac valves and hereditary clotting disorders. (<3 days) therapeutic ranges have not been established. 11/26/2004 8:23 AM CDT Rajeev Kyle DO HEMATOLOGY ORDERABLES Final Result Performing Organization Address [facility] Phone Number INTERFACE SYSTEM Refer to clinic/hospital department * (ABNORMAL) LITHIUM LEVEL (11/26/2004 8:23 AM CDT) LITHIUM 0.4(L) 0.6 - 1.2 mmol/L INTERFACE SYSTEM 11/26/2004 8:23 AM CDT Rajeev Kyle DO CHEMISTRY ORDERABLES Final R esult Performing Organization Address [facility] Phone Number INTERFACE SYSTEM Refer to clinic/hospital department * (ABNORMAL) URINALYSIS (11/26/2004 8:00 AM CDT) WBC UA 0-5 0 - 5 /HPF INTERFACE SYSTEM RBC UA 0-2 0 - 2 /HPF INTERFACE SYSTEM BACTERIA UA 1+(A) None Seen /HPF INTERFACE SYSTEM EPITHELIAL CELLS, URINE 2-5 /HPF INTERFACE SYSTEM MUCOUS, URINE 1+ INTERF ROMULO SYSTEM 11/26/2004 8:00 AM CDT us Rajeev Kyle DO URINE ORDERABLES Final Resul t Performing Organization Address [facility] Phone Number INTERFACE SYSTEM Refer to clinic/hospital department * (ABNORMAL) URINALYSIS (11/26/2004 8:00 AM CDT) MACRO COMMENT Culture in Progress INTERFACE SYSTEM COLOR UA Yellow INTERFACE SYSTEM CLARITY UA Clear Clear INTERFACE SYSTEM SPECIFIC GRAVITY UA 1.015 1.001 - 1.035 INTERFACE SYSTEM PH UA 5.0 5.0 - 8.0 INTERFACE SYSTEM LEUKOCYTE ESTERASE UA Trace(A) Negative INTERFACE SYSTEM NITRITE UA Negative Negative INTERFACE SYSTEM PROTEIN UA Negative Negative INTERFACE SYSTEM GLUCOSE UA Negative Negative INTERFACE SYSTEM KETONES UA Negative Negative INTERFACE SYSTEM UROBILINOGEN UA <1 <1 mg/dL INTE RFACE SYSTEM BILIRUBIN UA Negative Negative INTERFA CE SYSTEM BLOOD UA Negative Negative INTERFACE SYSTEM 11/26/2004 8:00 AM CDT us Rajeev Kyle DO URINE ORDERABLES Final Resul t Performing Organization Address [facility] Phone Number INTERFACE SYSTEM Refer to clinic/hospital department * (ABNORMAL) BASIC METABOLIC PANEL (11/26/2004 5:00 AM CDT) GLUCOSE 116(H) 65 - 109 mg/dL INTERFACE SYSTEM CREATININE 0.7 0.4 - 1.2 mg/dL INTERFACE SYSTEM CALCIUM 7.9(L) 8.6 - 10.2 mg/dL INTERFACE SYSTEM BUN 15 6 - 20 mg/dL INTERFACE SYSTEM SODIUM 138 135 - 145 mmol/L INTERFACE SYSTEM POTASSIUM 4.0 3.5 - 4.9 mmol/L INTERFACE SYSTEM CHLORIDE 110(H) 96 - 108 mmol/L INTERFACE SYSTEM CO2 20(L) 22 - 30 mmol/L INTERFACE SYSTEM 11/26/2004 5:00 AM CDT us Rajeev Kyle DO CHEMISTRY ORDERABLES Final R esult Performing Organization Address [facility] Phone Number INTERFACE SYSTEM Refer to clinic/hospital department * (ABNORMAL) ACETAMINOPHEN LEVEL (11/26/2004 5:00 AM CDT) ACETAMINOPHEN LEVEL 54.6(H) 10.0 - 20.0 ug/mL INTERFACE SYSTEM 11/26/2004 5:00 AM CDT us Rajeev Kyle DO CHEMISTRY ORDERABLES Final R esult Performing Organization Address [facility] Phone Number INTERFACE SYSTEM Refer to clinic/hospital department * (ABNORMAL) HEPATIC FUNCTION PANEL (11/26/2004 5:00 AM CDT) AST 22 12 - 32 U/L INTERFACE SYSTEM ALKALINE PHOSPHATASE 79 35 - 104 U/L INTERFACE SYSTEM BILIRUBIN TOTAL 0.3 0.2 - 1.0 mg/dL INTERFACE SYSTEM ALBUMIN 3.0(L) 3.4 - 4.8 g/dL INTERFACE SYSTEM TOTAL PROTEIN 5.9(L) 6.0 - 8.3 g/dL INTERFACE SYSTEM ALT 26 0 - 31 U/L INTERFACE SYSTEM BILIRUBIN DIRECT <0.1 0.0 - 0.3 mg/dL INTERFACE SYSTEM 11/26/2004 5:00 AM CDT Rajeev Kyle DO CHEMISTRY ORDERABLES Final R esult Performing Organization Address [facility] Phone Number INTERFACE SYSTEM Refer to clinic/hospital department * (ABNORMAL) SALICYLATE LEVEL (11/25/2004 10:15 PM CDT) SALICYLATE LEVEL <0.3(L) 2.0 - 25.0 mg/dL INTERFACE SYSTEM Comment:Previous specimen us ed; approved by floor. 11/25/2004 10:1 5 PM CDT us Avtar Arteaga MD CHEMISTRY ORDERABLES Final Res ult Performing Organization Address [facility] Phone Number INTERFACE SYSTEM Refer to clinic/hospital department documented in this encounter Visit Diagnoses Diagnosis Poisoning by aromatic analgesics, not elsewhere classified(965.4)- Primary Poisoning by aromatic analgesics, not elsewhere classified documented in this encounter Care Teams Assistant To The President Relationship Specialty Start Date End Date Fern Aguilar FNP [address] [place] [address] PCP - General Nurse Practitioner Family 05/08/20 documented as of this encounter
--- OUTSIDE RECORDS SUMMARY | 2024-10-03 16:13 | XMS_ITS | Encounter Summary ---
Author Organization [employer] [facility] Address [address] [place] [address] Care Team Providers Care Park Landscape Architect Name Role Phone Fern Aguilar [facility] Primary Care Provider [phone] Encounter Details Date Type Department Care Team (Latest Contact Info) Description 12/08/2004 Outpatient Historical [facility] EMERGENCY ROOM Jalyn Coles [address] [place] [address] ABN FIND-STOOL CONTENTS-OCC BLOOD (Primary Dx) Social History Tobacco Use Types Packs/Day Years Used Date Smoking Tobacco: Never Assessed Comments Unknown Sex and Gender Information Value Date Recorded Sex Assigned at Not on file Legal Sex Female 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 Gender Identity Not on file Sexual Orientation Not on file documented as of this encounter Plan of Treatment Upcoming Encounters Date Type Department Care Team (Late st Contact Info) Description 12/25/2024 10:30 AM CDT Office Visit [facility] Urology [address] [place] [address] Kathy Jackson FNP [address] [facility] [address] [place] [address] 02/08/2025 9:30 AM ELECTRONIC BENCH TECHNICIAN Office Visit [facility] [address] [place] [address] Leana Pederson PA [address] [place] [address] documented as of this encounter Visit Diagnoses Diagnosis Nonspecific abnormal finding in stool contents- Primary documented in this encounter Care Teams Park Landscape Architect Relationship Specialty Start Date End Date Fern Aguilar FNP [address] [place] [address] PCP - General Nurse Practitioner Family 05/08/20 documented as of this encounter
--- OUTSIDE RECORDS SUMMARY | 2024-10-03 16:13 | XMS_ITS | Clinical Summary ---
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 Gender Identity Not on file Sexual Orientation Not on file Plan of Treatment Health Maintenance Due Date Last Done Comments HEPATITIS B VACCINES (1 of 3 - 19+ 3-dose series) 02/24/2004 HPV/Cotest (21-29) 2006 CERVICAL CANCER SCREENING 2015 HPV/Cotest (30-65) 2015 PAP SMEAR 2015 INFLUENZA VACCINE (#1) 2023 9, 02/07/2012, 01/16/2009 DTAP/TDAP/TD VACCINES (2 - Td or Tdap) 08/30/2026 08/30/2016 HPV VACCINES Aged Out No longer eligi ble based on patient's age to complete this topic Insurance [place]ICAID [place] Care Teams Sales Representative [facility] Relationship Specialty Start Date End Date Fern Aguilar FNP [address] [place] [address] PCP - General Nurse Practitioner Family 05/08/20
--- OUTSIDE RECORDS SUMMARY | 2024-10-03 16:13 | XMS_ITS | Encounter Summary ---
Author Organization [employer] [facility] Address [address] [place] [address] Care Team Providers Care Cashier Or Checker Stock Clerk Name Role Phone Fern Aguilar BARKEEPER Primary Care Provider [phone] Encounter Details Date Type Department Care Team (Latest Contact Info) Description 08/30/2005 Outpatient Historical [facility] EMERGENCY RO[facility] Jessica Bojorquez MD [address] [place] [address] [place] [address] Poisoning by Aromatic Analgesics, not Elsewhere Classified (Primary Dx) Social History Tobacco Use Types Packs/Day Years Used Date Smoking Tobacco: Never Assessed Comments Unknown Sex and Gender Information Value Date Recorded Sex Assigned at Not on file Legal Sex Female 10:00 PM 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 ENGINEER Gender Identity Not on file Sexual Orientation Not on file documented as of this encounter Plan of Treatment Upcoming Encounters Date Type Department Care Team (Late st Contact Info) Description 12/25/2024 10:30 AM CDT Office Visit [facility] Urology [address] [place] [address] Kathy [place] FNP [address] [place] [address] 02/08/2025 9:30 AM OPERATIONS RESEARCH ENGINEER Office Visit [facility] [address] [place] [address] Leana Pederson PA [address] [place] [address] documented as of this encounter Visit Diagnoses Diagnosis Poisoning by aromatic analgesics, not elsewhere classified(965.4)- Primary Poisoning by aromatic analgesics, not elsewhere classified documented in this encounter Care Teams Cashier Or Checker Stock Clerk Relationship Specialty Start Date End Date Fern Aguilar FNP [address] [place] [address] PCP - General Nurse Practitioner Family 05/08/20 documented as of this encounter
--- OUTSIDE RECORDS SUMMARY | 2024-10-03 16:13 | XMS_ITS | Encounter Summary ---
Author Organization [employer] [facility] Address [address] [place] [address] Care Team Providers Care Junction Maker Name Role Phone Fern Aguilar Primary Care Provider [phone] Encounter Details Date Type Department Care Team (Late st Contact Info) Description 03/30/2002 Outpatient Historical [facility] RADIOLOGY Conversion, History JOINT PAIN-PELVIS (Primary Dx) Social History Tobacco Use Types Packs/Day Years Used Date Smoking Tobacco: Never Assessed Comments Unknown Sex and Gender Information Value Date Recorded Sex Assigned at Not on file Legal Sex Female 10:00 PM PATHOLOGY TECH Gender Identity Not on file Sexual Orientation Not on file documented as of this encounter Plan of Treatment Upcoming Encounters Date Type Department Care Team (Late st Contact Info) Description 12/25/2024 10:30 AM CDT Office Visit [facility] Urology [address] [place] [phone] Kathy Jackson FNP [address] [facility] [address] [place] [address] 02/08/2025 9:30 AM PATHOLOGY TECH Office Visit [facility] [address] [place] [address] Leana Pederson PA [address] [place] [phone] documented as of this encounter Visit Diagnoses Diagnosis Pain in joint, pelvic region and thigh- Primary documented in this encounter Care Teams Junction Maker Relationship Specialty Start Date End Date Fern Aguilar FNP [address] [place] [address] PCP - General Nurse Practitioner Family 05/08/20 documented as of this encounter
--- OUTSIDE RECORDS SUMMARY | 2024-10-03 16:13 | XMS_ITS | Encounter Summary ---
Author Organization [facility] Address [address] [place] [address] Care Team Providers Care Pleater Hand Name Role Phone Fern Aguilar [facility] Primary Care Provider [phone] Encounter Details Date Type Department Care Team (Late st Contact Info) Description 08/30/2005 Outpatient Historical [facility] Internal Medicine [address] [place] [address] Brandan Churchill MD [address] [place] [phone] Social History Tobacco Use Types Packs/Day Years Used Date Smoking Tobacco: Never Assessed Comments Unknown Sex and Gender Information Value Date Recorded Sex Assigned at Not on file Legal Sex Female 10:00 PM CENTRAL COMMUNICATIONS SPECIALIST Gender Identity Not on file Sexual Orientation Not on file documented as of this encounter Plan of Treatment Upcoming Encounters Date Type Department Care Team (Late st Contact Info) Description 12/25/2024 10:30 AM CDT Office Visit [facility] Urology [address] [place] [address] Kathy Jackson FNP [address] [facility] [address] [place] [address] 02/08/2025 9:30 AM CENTRAL COMMUNICATIONS SPECIALIST Office Visit [facility] [place] [address] [place] [phone] Leana Pederson PA [address] [place] [address] documented as of this encounter Visit Diagnoses Not on filedocumented in this encounter Care Teams Pleater Hand Relationship Specialty Start Date End Date Fern Aguilar FNP [address] [place] [address] PCP - General Nurse Practitioner Family 05/08/20 documented as of this encounter
--- OUTSIDE RECORDS SUMMARY | 2024-10-03 16:13 | XMS_ITS | Data Portability ---
Author Organization CAMIL[facility], L.LTerriCTerri, [facility] Address [address] [address] Care Team Providers Care Door Liner Name Role Phone FERN GRIDER Primary Care Provider DENISSE Bejarano Referring Provider ELAYNE MCINTYRE Referring Provider [phone] QUENTIN GAMING Referring Provider [phone] MESFIN HUDSON Referring Provider [facility] ([facility]) Referring Provider Assessment Encounter Date Assessment Date Assessment LastModified by Organization Details LastModified Time 05/30/2024 05/30/2024 Patient is doing well. She has been working on her diet. She only had 1 overnight accident last week. She is being more active at home and is ready for warmer weather to start walking more. They will weigh her weekly and for now she does not need to count her drinks in her daily calorie count but if her weight increases, will add this back to her calorie count. She is motivated to continue to work on her diet and weight. Not available 06/01/2024 19:11:07 09/06/2024 09/06/2024 Patient here today to discuss a sore she has on her bottom, her urine and her weight. She is excited and talking loudly in the room jumping from issue to issue. She has gained a little weight so will have her start counting the calories in her drinks again as we had an agreement this is what we need to do if she starts gaining weight again. Not available 09/11/2024 17:37:13 09/20/2024 09/20/2024 Patient here today because her period has been irregular this month. 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 She is on control right now that may need to be adjusted because she has had some weight loss. Not available 09/20/2024 11:40:02 Plan of Treatment Reminders Order Date Submit Date Provider Last Modified By Organization Details Last Modified Time Details Appointments OFFICE VISIT 2024 01:40P RANDY YEE Not available Not available Not available OFFICE VISIT 2024 11:00A RANDY YEE Not available Not available Not available Lab SARS CoV 2 RNA, QL, nasophary nx [email or web address] [facility] ([facility]), [address] [place], [address], 06/12/2024 13:49:47 Referral vein specialis t referral 2024 025 [email or web address] Not available 06/08/2024 11:20:06 Procedures None recorded. Surgeries None recorded. Imaging None recorded. Medication Orders mupirocin 2 % topical ointment 2024 025 [facility], [facility] [address], [address], 09/06/2024 16:02:50 furosemid e 40 mg tablet 2024 025 [facility], [facility] [address], [address], 09/06/2024 14:41:42 Paxlovid 300 mg (150 mg x 2)-100 mg tablets in a dose pack 2024 025 [facility], [address] [place], [address], 07/31/2024 17:31:33 Cough Drops 5 mg 2024 025 [facility], [address] [place], [address], 05/30/2024 12:51:25 Benadryl Allergy 25 mg tablet 2024 025 [facility], [facility] [place], [address], 07/17/2024 14:33:21 Icy Hot 29 %-7.6 % topical ointment 2024 025 [facility], [address] [place] [address], [address], 07/17/2024 14:33:22 Visine Red Eye Hydrating Comfort 0.05 %-1 % drops 2024 025 [facility], [address] [place] [address], [address], 07/17/2024 14:33:21 Patient TargetsNo targets recorded. Patient Instructions Encounter Date Encounter Id Patient Instructions Last Modified By Organization Details Last Modified Time 05/30/2024 [id number] Call or return for questions or concerns. Not available 06/01/2024 19:10:55 09/06/2024 [id number] Call or return for questions or concerns. Not available 09/11/2024 17:35:31 09/20/2024 [id number] Call or return for questions or concerns. Not available 09/20/2024 11:41:30 Reason for Referral Vein Specialist Referral for Peripheral vascular disease Referring Physician: Fern Grider, Family Medicine, Encounter Date: 05/30/2024 Results Created Date Observation Date Name Description Value Unit Range Abnormal Flag Note LastModifiedBy Organization Detail LastModifiedTime 06/13/1906/12/2024 SARS CoV 2 RNA, QL, nasop haryn x COVID positi ve Not Available [facility] ([facility]) [address] [place], [address], 06/12/2024 13:19:56 Result Notes None recorded. Problems Name Problem SNOMED Code Status Onset Date Resolution Date Notes Provider Name and Address Organization Details Recorded Time Epilepsy 62039248 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 11:35:07 Gastroes ophageal reflux disease 266103693 Active 2022 [facility] 11:38:09 Localize d edema 232402336 Active 2022 BILATERA L LEG EDEMA [facility] 4 11:38:53 Vitamin D deficien cy 53007664 Active 2022 [facility] 11:41:28 Chronic kidney disease stage 3A 993181740 Active 2022 STAGE 3A CHRONIC KIDNEY DISEASE [facility] 11:36:20 Fibromya lgia 558701491 Active 2022 GILBERT hudson [facility] 4 11:37:51 Suicidal thoughts 6011583 Active 2022 SUICIDAL IDEATION [facility]IL[facility]ERT hudson [facility] 4 11:41:06 Aggressi ve outburst 703245855 Active 2022 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 4 11:39:58 Cardiome gentry 4291669 Active 2022 [facility] 11:35:48 Hypoxia 932145067 Active 2022 [facility] 11:38:28 Chronic chest pain 81585713259 4101 Active 2022 Pt seen in the ER on 06/25/22 CXR done 06/25/22 showed no acute findings . [facility]IL[facility]ERT CANTRELL [facility] 3 15:27:00 Acute hypercap chong respirat ory failure due to obstruct karson sleep apnea [id number] 9106 Active [facility]AVA[facility] CANTRE[facility] 4 11:34:39 Edema of lower extremit y 279141051 Active [facility]ERTSARAVANAN CANTRELL [facility] 4 11:37:26 Benign essentia l hyperten norma 2519671 Active [facility]AVANA[facility] CANTRE[facility] 4 11:35:19 Alveolar hypovent ilation 31174609 Active [facility]ERT CANTRELL [facility] 4 11:35:03 Morbid obesity 660898617 Active FERN GRIDER, [address], [address] , [facility] 5 11:55:51 Peripher al edema 214099124 Active [facility]IL[facility]ERTSARAVANAN CANTRELL [facility] 4 11:39:50 Closed fracture of distal fibula 308352313 Active GILBERT TAMIA [facility] 4 11:36:24 Nocturna l polyuria Active [facility]AVANAN CANT[facility] 4 11:39:22 Depressi ve disorder 42781005 Active [facility]ERTSARAVANAN CANTRELL [facility] 4 11:36:58 Osteoart hritis 353323085 Active [place] TAMIA [facility] 4 11:39:30 Hypothyr oidism 75671179 Active [facility]ILBERTSARAVANAN CANTRELL [facility] 4 11:38:24 Respirat ory failure 187747697 Active [facility]ERTSARAVANAN CANTRELL [facility] 4 11:40:36 Congesti ve heart failure 89780610 Active [place] TAM[facility] 4 11:36:35 Chronic hypoxemi c respirat ory failure 723369958 Active [facility]IL[facility]ERTSARAVANAN CANTRELL [facility] 4 11:36:15 Family history of malignan t neoplasm of breast in first degree relative 325246114 Active [facility]ERTSARAVANAN CANTRELL [facility] 4 11:37:47 Schizoph keanu 37319537 Active [facility]IL[facility]ERT TAMIA [facility] 4 11:40:40 Pulmonar y embolism 89139088 Active [facility]AVANAN CANTRE[facility] 4 11:40:33 Dyspnea on exertion 27325958 Active [facility]ERTS[facility]AVANAN CANTRE[facility] 4 11:37:22 Sleep apnea 84528888 Active [facility] CANT[facility] 4 11:40:53 Mental disorder 78463943 Active [facility]ERTSARAVANAN CANTRELL [facility] 4 11:39:02 Nocturna l enuresis 2130486 Active [facility] 4 11:39:18 Dependen ce on nocturna l oxygen therapy 02780604066 108 Active GILBERT hudson [facility] 4 11:36:54 Acute respirat ory failure 81508668 Completed 05/21/2024 Removal Reason: RESOLVED [facility] 22:13:39 Sepsis 38992548 Completed 05/21/2024 Removal Reason: resolved [facility] 22:16:24 Mixed anxiety and depressi ve disorder 984861473 Active 2022 [facility] 4 11:39:06 Irritabl e bowel syndrome 98540151 Active 2022 [facility] 4 11:38:37 Lives in independ ent half-way 639677215 Active 2022 [employer] [facility] 4 11:38:49 Problem Notes None recorded. Procedures Surgical History Date Name Laterality Status Provider Name and Address Organization Details Recorded Time 03/11/20 plain X-ray of chest completed GILBERT CANTRELL [facility]CTerri 03/14/2024 20:31:36 03/11/[address] of head completed [facility] 03/14/2024 20:32:11 01/25/20 24 endoscopy completed GILBERT TAMIA [facility]LT[facility]riCT[facility]ri 01/31/2024 11:18:02 01/25/20 24 Colonoscopy completed [facility]ILBERT CANTRELL [facility] 01/31/2024 11:19:01 01/01/20 24 plain X-ray of chest completed [place] TAM[place] [facility] LTerriL.CTerri 01/03/2024 12:21:45 09/13/19 24 continuous positive airway pressure titration completed [facility]CT[facility] 09/21/2023 11:45:34 12/19/19 23 plain X-ray of chest completed GILBERT TAMIA [facility] LTerriL.CTerri 01/16/2023 14:53:39 Cholecystectomy completed [facility] L[facility]LT[facility]CT[facility] 09/16/2022 17:02:30 Imaging Results None recorded. Procedure Notes None recorded. Medical Equipment None Reported. Allergies Allergen ID Allergen Name Allergen Category Reaction Reaction Severity Criticality Documentation Date Start Date Code Code System Note Provider Name and Address Organization Details Recorded Time 4389 aspirin medicatio n Not available Not available Not available 09/16/20222024 1191 RxNorm FERNDharmesh GRIDER, [facility] [address] [place], [address], [facility], JulianLTerriCTerri 5 11:55:24 4390 Zithromax medicatio n Not available Not available Not available 09/16/2022 56461 4 RxNorm GILBERT hudson [facility] JulianLTerriCTerri 3 11:08:23 4391 prednison e medicatio n Not available Not available Not available 09/16/2022 8640 RxNorm GILBERT hudson [facility] JulianLTerriCTerri 3 16:58:46 4393 haloperid ol medicatio n Not available Not available Not available 09/16/20222024 5093 RxNorm FERN MARNI, [facility] [address] [place], [address], [facility], LTerriL.C. 5 11:55:24 [address]39 Zithromax medicatio n itching mild low 10/30/2022 14664 4 RxNorm React ion: Itchi ng;*i ntole moody * GILBERT hudson, [facility] 5 11:06:24 05866 methylpre dnisolone medicatio n itching Not available Not available 10/30/2022 6902 RxNorm React ion: Itchi ng;*i ntole moody *; Comme nt: Recor ded 06/11 3:02P M by Yaniv suazo, [place], Offic e Visit ; Dandre manoj; Linda white ce: *; Reaso n: Drug aller gy; ; GILBERT CANTRELL becca, [facility] 3 11:08:13 94073 tramadol hydrochlo ride medicatio n hives mild low 10/30/2022 69466 RxNorm Mary hudson, [facility] 4 10:00:41 46472 honey bee venom environme nt Not available Not available Not available 10/30/20222024 53193 7 RxNorm FERN GRIDER, [address], [address], [facility] 5 11:55:24 60390 acetamino phen medicatio n Not available Not available Not available 11/03/20232024 161 RxNorm FERN GRIDER, [address], [address], [facility] 5 11:55:24 55268 ibuprofen medicatio n Not available Not available Not available 11/03/20232024 5640 RxNorm FERN GRIDER, [address], [address], [facility], LAllen 5 11:55:24 86315 azithromy halley medicatio n Not available Not available Not available 03/22/20242024 47644 RxNorm FERN GRIDER, [employer] [address] [place], [address], [facility], Carolyne 5 11:55:24 70926 tramadol medicatio n Not available Not available Not available 03/22/20242024 07917 RxNorm FERN GRIDER, RATCHE[employer] SETTER [address] [place], [address], [facility], UmeshCTerri 5 11:55:24 Medications Name Sig Start Date Stop Date Status Note LastModified by Organization Details LastModified Time Prescript ion - Renewal USE DIRECTED 07/31 completed Not Available Not Available Not Available n m vit b-12 shelby 1000mcg 50 TAKE 1 TABLET BY MOUTH EVERY DAY 06/19 completed Not Available Not Available Not Available eucerin [facility] 0090 16oz APPLY TO THE AFFECTED AREA(S) TWICE DAILY NEEDED 11/02 completed Not Available Not Available Not Available danyel c drp nichols bag30 place ONE lozenge in MOUTH EVERY HOUR NEEDED FOR dry throat or cough active Not Available Not Available No t Available halls c drp chry economy bag80 DISSOLVE ONE TABLET BY MOUTH EVERY HOUR NEEDED 11/02 completed Not Available Not Available Not Available f t advanced probiotic cp 60 take 1 capsule BY MOUTH EVERY DAY 12/24 completed Not Available Not Available Not Available sm adv probiotic cap 60 take 1 capsule BY MOUTH EVERY DAY 12/24 completed Not Available Not Available Not Available icy hot cream tube ex str USE DIRECTED and apply TO affected areas TWICE DAILY NEEDED 02/04 completed Not Available Not Available Not Available sd probiotic 3 lola cp 60 TAKE ONE CAPSULE BY MOUTH TWICE DAILY 11/02 completed Not Available Not Available Not Available gaming lot baby oil 9oz USE DIRECTED ON PACKAGE LEAVE ON FOR FIVE TO 10 MINUTES active Not Available Not Available No t Available visine red eye comfort apply TWO drops THREE TIMES DAILY NEEDED FOR dry, red eye 07/31 completed Not Available Not Available Not Available cyclobenz aprine 10 mg tablet TAKE ONE TABLET BY MOUTH THREE TIMES DAILY NEEDED active Not Available Not Available No t Available furosemid e 40 mg tablet Take 1.5 tablets every day by oral route in the morning for 30 days. 2024 active Not Available Not Available Not Avai lable Miralax 17 gram/dose oral powder Half capful every other day as needed 2024 active Not Available Not Available Not Avai lable levothyro xine 175 mcg tablet TAKE 1 TABLET BY MOUTH EVERY MORNING 2024 active Not Available Not Available Not Avai lable gabapenti n 600 mg tablet 1 tablet tid 2024 active Not Available Not Available Not Avai lable doxycycli ne hyclate 100 mg capsule take 1 capsule BY MOUTH TWICE DAILY 03/24 completed Not Available Not Available Not Available loperamid e 2 mg capsule 1 capsule three times daily NEEDED 2024 active Not Available Not Available Not Avai lable cetirizin e 10 mg tablet TAKE 1 TABLET BY MOUTH EVERY DAY active Not Available Not Available No t Available fluconazo le 150 mg tablet TAKE 1 TABLET BY MOUTH EVERY DAY for 5 days 02/04 completed Not Available Not Available Not Available promethaz ine 25 mg rectal supposito ry INSERT ONE SUPPOSIT ORY RECTALLY EVERY 6 HOURS NEEDED FOR NAUSEA AND VOMITING active Not Available Not Available No t Available fluconazo le 200 mg tablet TAKE 1 TABLET BY MOUTH EVERY DAY FOR 30 DAYS 02/04 completed Not Available Not Available Not Available meloxicam 15 mg tablet TAKE 1 TABLET BY MOUTH ONCE DAILY 2024 active Not Available Not Available Not Avai lable sucralfat e 1 gram tablet TAKE 1 TABLET BY MOUTH THREE TIMES DAILY WITH MEALS FOR FOUR WEEKS 05/30 completed Not Available Not Available Not Available Elidel 1 % topical cream APPLY IN ABDOMINA L FOLDS TWICE DAILY FOR TWO MONTHS 10/23 completed Not Available Not Available Not Available desmopres sin 0.2 mg tablet TAKE ONE TABLET BY MOUTH AT BEDTIME active Not Available Not Available No t Available sertralin e 100 mg tablet TAKE 2 TABLETS BY MOUTH EVERY DAY active Not Available Not Available No t Available loperamid e 2 mg tablet Take 1 tablet 3 times a day by oral route as needed for 90 days. 11/02 completed Not Available Not Available Not Available acetazola mide 250 mg tablet TAKE 1 TABLET BY MOUTH EVERY OTHER DAY 2024 active Not Available Not Available Not Avai lable Eucerin topical cream apply topicall y TWICE DAILY NEEDED 05/30 completed Not Available Not Available Not Available metronida zole 500 mg tablet TAKE 1 TABLET BY MOUTH EVERY 8 HOURS 03/15 completed Not Available Not Available Not Available oxcarbaze pine 300 mg tablet TAKE 1 TABLET BY MOUTH EVERY MORNING, ONE at NOON and ONE EVERY EVENING active Not Available Not Available No t Available calcium 600 mg (as carbonate )-vitamin D3 5 mcg (200 unit) tablet TAKE 1 TABLET BY MOUTH EVERY DAY active Not Available Not Available No t Available sulfameth oxazole 800 mg-trimet hoprim 160 mg tablet TAKE 1 TABLET BY MOUTH TWICE DAILY FOR SEVEN DAYS 02/04 completed Not Available Not Available Not Available spironola ctone 25 mg tablet take 1/2 tablet BY MOUTH EVERY DAY 05/30 completed Not Available Not Available Not Available ondansetr on 8 mg disintegr ating tablet Dissolve one-half to one tablet every 6 hours NEEDED for nausea 2024 active Not Available Not Available Not Avai lable meloxicam 7.5 mg tablet TAKE ONE TABLET BY MOUTH DAILY 05/30 completed Not Available Not Available Not Available levothyro xine 100 mcg tablet TAKE 1 TABLET BY MOUTH EVERY DAY 03/25 completed Not Available Not Available Not Available amoxicill in 875 mg tablet TAKE 1 TABLET BY MOUTH EVERY TWELVE HOURS FOR 10 DAYS 11/02 completed Not Available Not Available Not Available potassium chloride ER 20 mEq tablet,ex tended release(p art/cryst ) TAKE ONE TABLET BY MOUTH EVERY DAY 05/30 completed Not Available Not Available Not Available famotidin e 20 mg tablet TAKE 1 TABLET BY MOUTH EVERY DAY 05/30 completed Not Available Not Available Not Available Triad Wound Dressing paste apply topicall y TWICE DAILY DIRECTED NEEDED 05/30 completed Not Available Not Available Not Available Vanicream topical APPLY TOPICALL Y TWICE DAILY TO FACE AND BODY AT LEAST ONCE AFTER SHOWER active Not Available Not Available No t Available furosemid e 80 mg tablet TAKE 1 TABLET BY MOUTH EVERY DAY 09/16 completed Not Available Not Available Not Available Triple Antibioti c 3.5 mg-400 unit-5,00 0 unit/gram topical ointment APPLY TOPICALL Y TWICE DAILY NEEDED 05/30 completed Not Available Not Available Not Available cephalexi n 500 mg capsule take 1 capsule BY MOUTH THREE TIMES DAILY for 5 days 06/07 completed Not Available Not Available Not Available pantopraz ole 40 mg tablet,de layed release TAKE 1 TABLET BY MOUTH EVERY DAY active Not Available Not Available No t Available Banophen 25 mg tablet TAKE 1 TABLET BY MOUTH EVERY 6 HOURS NEEDED FOR bee sting or allergie s active Not Available Not Available No t Available triamcino lone acetonide 0.1 % topical ointment APPLY TO THE AFFECTED AREA(S) TWICE DAILY NEEDED FOR no mroe THAN TWO weeks PER MONTH 11/28 completed Not Available Not Available Not Available lidocaine 5 % topical patch APPLY ONE PATCH EVERY DAY REMOVE AFTER 12 HOURS NEEDED 05/30 completed Not Available Not Available Not Available polymyxin B sulfate 10,000 unit-trim ethoprim 1 mg/mL eye drops Instill 2 drops 3 times a day by ophthalm ic route for 7 days. 05/30 completed Not Available Not Available Not Available losartan 25 mg tablet TAKE 1 TABLET BY MOUTH EVERY MORNING 2024 active Not Available Not Available Not Avai lable oxybutyni n chloride ER 5 mg tablet,ex tended release 24 hr TAKE 1 TABLET BY MOUTH AT BEDTIME 2024 active Not Available Not Available Not Avai lable Banophen 25 mg capsule take 1 capsule BY MOUTH EVERY 4 HOURS NEEDED 05/30 completed Not Available Not Available Not Available magnesium citrate oral solution TAKE DIRECTED FOR colonosc opy 05/30 completed Not Available Not Available Not Available hydroxyzi ne HCl 25 mg tablet TAKE 1 TABLET BY MOUTH AT BEDTIME and ONE THREE TIMES DAILY NEEDED active Not Available Not Available No t Available bisacodyl 5 mg tablet,de layed release TAKE DIRECTED FOR colonosc opy 05/30 completed Not Available Not Available Not Available walker as directed 02/04 completed Heavy Duty Ping Vogel; Recorded 06/12/19 23 3:45PM by RANDY Gilliam, Office Visit; Refill Quantity : 0; Not Available Not Available Not Available mupirocin 2 % topical ointment Apply 1 applicat ion twice a day by topical route as needed. 2024 active Not Available Not Available Not Avai lable furosemid e 20 mg tablet TAKE 1 TABLET BY MOUTH ONCE DAILY AT NOON 09/06 completed Not Available Not Available Not Available epinephri ne 0.3 mg/0.3 mL injection , auto-inje ctor USE DIRECTED 2024 active Not Available Not Available Not Avai lable levofloxa halley 750 mg tablet TAKE 1 TABLET BY MOUTH every 24 hours for 5 days 03/15 completed Not Available Not Available Not Available methylpre dnisolone 4 mg tablets in a dose pack Take as directed on package for 6 days 11/02 completed Not Available Not Available Not Available Vitamin D2 1,250 mcg (50,000 unit) capsule TAKE ONE CAPSULE BY MOUTH every week active Not Available Not Available No t Available norethind milton (contrace ptive) 0.35 mg tablet TAKE 1 TABLET BY MOUTH ONCE DAILY active Not Available Not Available No t Available fluticaso ne propionat e 50 mcg/actua tion nasal spray,cynthia pension 2 puffs each nare daily 2024 active Not Available Not Available Not Avai lable sertralin e 50 mg tablet TAKE 1 & 1/2 TABLETS BY MOUTH EVERY DAY at 8am 05/17 completed Not Available Not Available Not Available Cough Drops 5 mg Take 1 lozenge every hour by mucous route as needed, for dry throat/c ough. 2024 active Not Available Not Available Not Avai lable doxycycli ne hyclate 100 mg tablet TAKE 1 TABLET BY MOUTH TWICE DAILY for 7 days 01/17 completed Not Available Not Available Not Available dicyclomi ne 10 mg capsule TAKE 1 TABLET BY MOUTH ONCE DAILY 2024 active Not Available Not Available Not Avai lable amoxicill in 875 mg-potass ium clavulana te 125 mg tablet TAKE 1 TABLET BY MOUTH EVERY TWELVE HOURS 03/24 completed Not Available Not Available Not Available Vitamin B-12 1,000 mcg tablet TAKE 1 TABLET BY MOUTH EVERY DAY 2024 active Not Available Not Available Not Avai lable Ventolin HFA 90 mcg/actua tion aerosol inhaler INHALE TWO PUFFS BY MOUTH EVERY 4 HOURS NEEDED FOR SHORTNES S OF BREATH or wheezing 05/30 completed Not Available Not Available Not Available Oyster Shell Calcium-V itamin D3 500 mg-5 mcg (200 unit) tablet TAKE 1 TABLET BY MOUTH EVERY DAY 11/02 completed Not Available Not Available Not Available ciclopiro x 0.77 % topical cream APPLY TO RED AREAS TWICE DAILY NEEDED 05/30 completed Not Available Not Available Not Available Mucinex 600 mg tablet, extended release TAKE 1 TABLET BY MOUTH EVERY TWELVE HOURS for 7 days 01/17 completed Not Available Not Available Not Available Saline Nasal 0.65 % spray aerosol INSTILL 2 SPRAY IN EACH NOSTRIL TWICE DAILY active Not Available Not Available No t Available aripipraz ole 10 mg tablet TAKE 1 TABLET BY MOUTH EVERY MORNING active Not Available Not Available No t Available Throat Lozenges oral every six hours, as needed 11/02 completed Recorded 09/29/19 22 1:10PM by Omayra Blair LPN, Office Visit; Refill Quantity : 60; Lozenge; Not Available Not Available Not Available bupropion HCl XL 300 mg 24 hr tablet, extended release TAKE 1 TABLET BY MOUTH EVERY MORNING active Not Available Not Available No t Available Nyamyc 100,000 unit/gram topical powder APPLY TO THE AFFECTED AREA(S) TWICE DAILY NEEDED 2024 active Not Available Not Available Not Avai lable meloxicam daily 11/02 completed 81979; Recorded 06/17/19 23 11:00AM by Gilbert Cantrell CMT (Authori alyssad through RANDY Gilliam), Refill Request; Refill Quantity : 30; Tablet; Not Available Not Available Not Available Eucerin two times daily, as needed 11/02 completed 31197; Recorded 05/19/19 23 9:53AM by Gilbert Cantrell CMT (Authori alyssad through RANDY Gilliam), Refill Request; Refill Quantity : 1; Applicat or; Not Available Not Available Not Available Imodium A-D every eight hours, as needed for diarrhea 02/04 completed Recorded 09/29/19 22 1:10PM by Omayra Blair LPN, Office Visit; Refill Quantity : 1; Tablet; Not Available Not Available Not Available hydroxyzi ne HCl four times daily, as needed 11/02 completed bubble pack; Recorded 09/29/19 1:10PM by Omayra Blair LPN, Office Visit; Refill Quantity : 360; Tablet; Not Available Not Available Not Available Icy Hot Extra Strength apply to affected areas twice daily as needed 02/04 completed Recorded 03/25/20 22 12:24PM by Gilbert Cantrell CMT, Historic al Summary; Refill Quantity : 1; Each; Not Available Not Available Not Available furosemid e daily at noon 11/02 completed Recorded 05/21/19 23 2:10PM by Gilbert Cantrell CMT, Historic al Summary; Refill Quantity : 30; Each; Not Available Not Available Not Available Banophen every six hours, as needed 11/02 completed Recorded 09/29/19 22 1:10PM by Omayra Blair LPN, Office Visit; Refill Quantity : 30; Tablet; Not Available Not Available Not Available DDAVP at bedtime 11/02 completed 31468; Recorded 05/25/19 23 12:10PM by Gilbert Cantrell CMT (Authori zed through ARNDY Gilliam), Refill Request; Refill Quantity : 30; Tablet; Not Available Not Available Not Available Vitamin D3 daily 11/02 completed DM/sd; 57138; Recorded 01/14/20 8:10AM by Rama Austin (Authori zed through Bobo Negrete DO), Refill Request; Refill Quantity : 90; Capsule; Not Available Not Available Not Available THSC Levothyro xine Sodium daily 11/02 completed DOC CS/smf; 70017; Recorded 06/08/19 1:18PM by Niki Cerda RN (Authori zed through Riccardo Bacon DO), Refill Request; Refill Quantity : 0; Not Available Not Available Not Available Neosporin Original two times daily prn 02/04 completed Recorded 11/27/19 10:35AM by Gilebrt Cantrell CMT, Office Visit; Refill Quantity : 15; Gram; Not Available Not Available Not Available Potassium Chloride ER daily 11/02 completed DOC CS/smf; 89421; Recorded 06/08/19 1:17PM by Niki Cerda RN (Authori alyssad through Riccardo Bacon DO), Refill Request; Refill Quantity : 0; Not Available Not Available Not Available Calcium+D daily 11/02 completed 91639; Recorded 05/11/19 10:03AM by Gilbert Cantrell CMT (Authori zed through RANDY Gilliam), Refill Request; Refill Quantity : 90; Tablet; Not Available Not Available Not Available Icy Hot 30 %-10 % topical cream Apply 1 g every day by topical route as needed. 05/30 completed Not Available Not Available Not Available cholecalc iferol (vitamin D3) 25 mcg (1,000 unit) tablet TAKE 1 TABLET BY MOUTH once weekly 05/30 completed Not Available Not Available Not Available olopatadi ne 0.2 % eye drops instill ONE drop into THE affected eye(s) ONCE DAILY NEEDED 11/28 completed Not Available Not Available Not Available Icy Hot 29 %-7.6 % topical ointment apply TO SKIN EVERY DAY NEEDED FOR muscle pain active Not Available Not Available No t Available Probiotic two times daily 11/02 completed 47520; Recorded 04/13/19 7:13PM by Gilbert Cantrell CMT (Authori zed through RANDY Gilliam), Refill Request; Refill Quantity : 60; Capsule; Not Available Not Available Not Available lurasidon e 80 mg tablet TAKE 1 TABLET BY MOUTH EVERY DAY AFTER SUPPER 01/17 completed Not Available Not Available Not Available Latuda two times daily 11/02 completed 0; Recorded 06/12/19 23 3:02PM by Gilbert Cantrell CMT, Office Visit; Not Available Not Available Not Available calcium 600 mg (as carbonate )-vitamin D3 20 mcg (800 unit) tablet TAKE 1 TABLET BY MOUTH EVERY DAY 09/16 completed Not Available Not Available Not Available Eliquis 5 mg tablet TAKE 1 TABLET BY MOUTH TWICE A DAY 2024 active Not Available Not Available Not Avai lable Latuda 60 mg tablet take 1 tablet BY MOUTH TWICE DAILY (afterbr eakfast and SUPPER) 01/17 completed Not Available Not Available Not Available potassium chloride ER 20 mEq tablet,ex tended release TAKE 1 TABLET BY MOUTH EVERY DAY active Not Available Not Available No t Available Advanced Probiotic 625 mg (10 billion cell) capsule take 1 capsule BY MOUTH EVERY DAY 03/22 completed Not Available Not Available Not Available zinc oxide 22 % topical cream apply topicall y TWICE DAILY 05/30 completed Not Available Not Available Not Available Daily Probiotic 2.5 billion cell capsule Take 1 capsule every day by oral route for 90 days. 11/02 completed Not Available Not Available Not Available levothyro xine 175 mcg capsule Take 175 microgra ms by oral route. 11/28 completed Not Available Not Available Not Available Salonpas 3.1 %-10 %-6 % topical patch apply and CHANGE ONE PATCH NEEDED FOR sciatic pain active Not Available Not Available No t Available Clear Fiber 3 gram/4 gram oral powder WAITING ON SCRIPT FROM active Not Available Not Available No t Available Arthritis Pain (diclofen ac) 1 % topical gel apply 4.5 INCH FOUR TIMES DAILY NEEDED FOR knee pain 05/30 completed Not Available Not Available Not Available Paxlovid 300 mg (150 mg x 2)-100 mg tablets in a dose pack take all 3 tabs (1 package) by mouth twice daily for 5 days as directed 07/31 completed Not Available Not Available Not Available Visine Red Eye Hydrating Comfort 0.05 %-1 % drops Apply 2 drops 3 times a day by ophthalm ic route as needed, for dry red eye. 2024 active Not Available Not Available Not Avai lable Vitals Date Recorded Body height Body mass index (BMI) Body weight Oxygen saturation Oxygen saturation in Arterial blood by Pulse oximetry Heart rate Systolic blood pressure Diastolic blood pressure Provider Name and Address Organization Details Last Updated DateTime 5 162.56 cm 64.7 kg/m2 246946. 32 g 94 % 94 % 86 /min 138 mm[Hg] 80 mm[Hg] GILBERT [facility] 5 12:02:30 Date Recorded Body height Body mass index (BMI) Body weight Oxygen saturation Oxygen saturation in Arterial blood by Pulse oximetry Heart rate Respiratory rate Systolic blood pressure Diastolic blood pressure Provider Name and Address Organization Details Last Updated DateTime 5 162.56 cm 65.6 kg/m2 768153. 29 g 96 % 96 % 86 /min 16 /min 142 mm[Hg] 80 mm[Hg] Tangela Kirby [facility] 5 13:19:03 Date Recorded Body height Body mass index (BMI) Body weight Oxygen saturation Oxygen saturation in Arterial blood by Pulse oximetry Heart rate Respiratory rate Systolic blood pressure Diastolic blood pressure Provider Name and Address Organization Details Last Updated DateTime 5 162.56 cm 67.6 kg/m2 301030. 39 g 96 % 96 % 76 /min 26 /min 142 mm[Hg] 94 mm[Hg] GILBERT [facility] 5 13:25:44 Date Recorded Body height Body mass index (BMI) Body weight Oxygen saturation Oxygen saturation in Arterial blood by Pulse oximetry Heart rate Respiratory rate Systolic blood pressure Diastolic blood pressure Provider Name and Address Organization Details Last Updated DateTime 5 162.56 cm 66.3 kg/m2 548927. 65 g 95 % 95 % 96 /min 26 /min 138 mm[Hg] 82 mm[Hg] GILBERT [facility] 5 11:04:20 Date Recorded Body height Body weight Oxygen saturation Oxygen saturation in Arterial blood by Pulse oximetry Heart rate Respiratory rate Systolic blood pressure Diastolic blood pressure Provider Name and Address Organization Details Last Updated DateTime 5 162.56 cm 854766. 09 g 95 % 95 % 86 /min 24 /min 116 mm[Hg] 80 mm[Hg] GILBERT TAMIA [facility] 5 15:29:01 Social History Question Answer Notes LastModified by Organizat [email or web address] Details LastModified Time Tobacco Smoking Status Current Every Day Smoker Quit smoking 06/2023 Now vapes. GILBERT TAMIA [facility]udson [facility] 07/05/2023 11:07:22 What Is Your Level Of Caffeine Consumption? Occasional [email or web address] Information not available 12/06/2023 What Was The Date Of Your Most Recent Tobacco Screening? 12/26/2023 Information not available 12/26/2023 What Is Your Relationship Status? Single [email or web address] Information not available 06/07/2023 Sex: Unknown Functional Status Question Answer Note LastModified by Organ[employer]at [email or web address] Details LastModified Time Do you use any illicit or recreational drugs? No Information not available 12/26/2023 What is your level of alcohol consumption? None Information not available 12/26/2023 Are you currently employed? No disabled [email or web address] Information not available 06/07/2023 Are you able to care for yourself? No [employer] [email or web address] Information not available 06/07/2023 Mental Status None recorded. Family History Relationship Description Onset Age of this Age Resolved Age Notes LastModified by Organization Details LastModified Time Mother Malignant tumor of breast [email or web address] Not available 06/06 19:45:11 Medical History Condition Response Anxiety Disorder Y Bedwetting Y Hospitalizations Y Lung Disease Y Depression Y Developmental or Behavioral Disorders Y Defects or Inherited Disease Y Mental Illness Y Hypertension Y Gynecological HistoryNo gynecological history recorded. Obstetrics History GPAL:G 0 P 0 0 0 0 Immunizations Vaccine Type Date Status Note Provider Nam e and Address Organization Details Recorded Time COVID-19, mRNA, LNP-S, PF, 100 mcg/0.5mL dose or 50 mcg/0.25mL dose 1 completed FERN GRIDER, [address], [address], [facility] 05/02/2024 11:53:47 COVID-19, mRNA, LNP-S, PF, 100 mcg/0.5mL dose or 50 mcg/0.25mL dose 1 completed FERN GRIDER, [address], [address], [facility] 05/02/2024 11:53:47 pneumococcal polysaccharide PPV23 2 completed FERN GRIDER, [address], [address], [facility] 09/16/2022 17:11:36 Tdap 7 completed FERN GRIDER [address], [address], [facility] 09/16/2022 17:11:36 Influenza, split virus, trivalent, preservative 2 completed FERN GRIDER [address], [address], [facility] 09/16/2022 17:11:36 Influenza, split virus, trivalent, preservative 0 completed FERN GRIDER [address], [address], [facility] 09/16/2022 17:11:36 influenza, split (incl. purified surface antigen) 9 chilo GRIDER [address], [address], [facility] 09/16/2022 17:11:36 Hep B, adolescent or pediatric 1 completed FERN GRIDER, [address], [address], [facility] 09/16/2022 17:11:36 Hep B, adult 7 completed FERN GRIDER, [address], [address], [facility] 09/16/2022 17:11:36 Influenza, split virus, quadrivalent, PF 9 completed FERN GRIDER, [address], [address], [facility] 09/16/2022 17:11:36 Hep A-Hep B 4 completed FERN GRIDER, [address], [address], [facility] 05/02/2024 11:53:47 Past Encounters Encounter ID Performer Location Encounter Start Date Encounter Closed Date Diagnosis/Indication Diagnosis SNOMED-CT Code Diagnosis ICD10 Code Diagnosis Note [id number] FERN GRIDER [facility] ([facility]) [address] [place] [id number] 07/12/2022 16:17:22 07/19/2022 11:00:01 Non-suppurative otitis media 774607673 H65.195 Candidiasis of skin 4988 3006 B37.2 Advised patient to us a pillow case or towel to put in pannus area to help keep area dry, encouraged her to use a hairdryer on cool or a fan to dry area. Keep appt with Dr. Mcintyre tomorrow. Cough 88962627 R05.1 [id number] FERN GRIDER [facility] ([facility]) [address] [place] [id number] 07/20/2022 12:01:27 07/26/2022 12:17:17 Lives in independent half-way 059695617 Z59.3 Seasonal a llergic rhinitis 079198380 J30.2 Irritable bowel syndrome 60041490 K58.9 Mixed anxi ety and depressive disorder 524943238 F41.8 Candidiasis of skin 4988 3006 B37.2 Advised patient to us a pillow case or towel to put in pannus area to help keep area dry, encouraged her to use a hairdryer on cool or a fan to dry area. Keep appt with Dr. Mcintyre tomorrow. Urinary incontinence 165 285883 R32 STOP DESMOPRESS IN RANDY RAMIREZ [facility] ([facility]) [address] [place] [id number] 5 09/16/2022 16:25:09 09/28/2022 16:27:04 Hypothyroidism 43443709 E03.9 Generalize d anxiety disorder 72480797 F41.1 Acute pharyngitis 048768 003 J02.9 [id number] RANDY RAMIREZ [facility] ([facility]) [address] [place] [id number] 5 11/02/2022 15:11:28 11/02/2022 17:41:05 Dysuria 49565540 R30.0 N39.44 Chronic ki dney disease stage 3A 801549069 N18.31 Personality disorder 334 [address] Hudson. Morbid obesity 361517820 E66.01 Discussed with her working on exercising while sitting, stretching . Prader-Willi syndrome 89 111664 Q87.11 Follows with endocrinol víctor in [facility]. Most recent visit 06/2022. Rectal discharge 6576929 01 R19.8 Stool leakage. [id number] RANDY RAMIREZ [facility] ([facility]) [address] [place] [id number] 5 01/04/2023 15:51:56 01/04/2023 18:03:13 Candidal intertrigo 760696562 B37.2 Continue nystatin powder regularly for the remainder of her 30 days following hospitaliz ation then change to every other day. Pain in bi lateral legs 6319312834 9855617 M79.604 M79.703 [id number] Elayne Gomez MD [facility] ([facility]) [address] [place] [id number] 5 01/17/2023 10:15:25 01/17/2023 12:29:35 Cellulitis of skin 708703546 L03.90 very extensive, will need IV antibiotic s. pt will go directly to the ER. Candidal intertrigo 2661 11469 B37.2 [id number] FERN GRIDER [facility] ([facility]) [address] [place] [address] [id number] 5 02/04/2023 10:35:06 02/04/2023 14:59:49 Hypoxia 827113471 R09.02 Currently requiring 4L of oxygen to keep sats above 92% consistent ly. Panniculitis 66412756 M7 9.3 Complete antibiotic s prescribed from [facility]. Candidal intertrigo 2661 04367 B37.2 Unsteady when walking 22 418546 R26.89 Currently requiring oxygen difficulty ambulating safely. Okay to use wheelchair when out in public, not for use in home. Aggressive outburst [address] Hudson, recently stopped Latuda and started Abilify. Will have them contact his office regarding jerky movements she is describing . [id number] FERN GRIDER [facility] ([facility]) [address] [place] [id number] 5 03/11/2023 15:16:36 03/16/2023 12:28:20 Chronic ulcer of skin 04140151 L98.499 Multiple wounds on lower extremitie s and buttock. Hypoxia 204857817 R09.02 Currently requiring 4L of oxygen to keep sats above 92% consistent ly. [id number] FERN GRIDER [facility] ([facility]) [address] [place] [address] [id number] 03/25/2023 13:20:50 03/25/2023 15:58:23 Hypothyroidism 05729030 E03.9 [id number] FERN GRIDER [facility] ([facility]) [address] [place] [address] [id number] 5 05/17/2023 14:16:58 05/17/2023 15:50:27 Obstructive sleep apnea syndrome 90391308 G47.33 CPAP orders given. May bleed oxygen into CPAP. Infection of skin and/or subcutaneous tissue 62516860 L08.9 Hypoxemia 453771268 R09. 02 Okay to check oxygen every 2 hours and if greater than 94% may leave oxygen off once CPAP is approved. [id number] RANDY RAMIREZ [facility] ([facility]) [address] [place] [address] [id number] 5 06/08/2023 11:01:41 06/08/2023 14:06:24 Wound of skin 328250439 T14.8XXD Lives in [facility] home 733584627 Z59.3 Written script for Gaming use given to patient. Pain of mu ltiple joints 30206370 M25.50 [id number] RANDY RAMIREZ [facility] ([facility]) [address] [place] [id number] 5 07/05/2023 10:45:05 07/05/2023 11:46:02 Obstructive sleep apnea syndrome 80586293 G47.33 CPAP orders given. May bleed oxygen into CPAP. Chest pain 44938698 R07. 9 Resolved. [id number] RANDY RAMIREZ [facility] ([facility]) [address] [place] [id number] 5 11/03/2023 10:34:24 11/03/2023 11:22:26 Annual physical examination for people with mental illness completed 7768953297 Z00.8 Morbid obesity 573087111 E66.01 Discussed with her working on exercising while sitting, stretching . Weight is coming down. Personality disorder 334 [address] Hudson. Chronic ki dney disease stage 3A 213975384 N18.31 Will recheck CMP today. Benign ess ential hypertension 6939856 I10 Obstructiv e sleep apnea syndrome 98804843 G47.33 CPAP orders given. May bleed oxygen into CPAP. She has been wearing it again for a couple of weeks. [id number] RANDY RAMIREZ [facility] ([facility]) [address] [place] [address] [id number] 5 11/22/2023 14:40:19 11/22/2023 15:35:37 Sleep apnea 72327275 G47.30 Encouraged her to wear her CPAP. Contact HOME regarding a different mask. Red eye 986247053 H57.89 Hypoxia 502899284 R09.02 Keep oxygen to sats above 92% consistent ly. Petechiae of skin 757160 004 R23.3 [id number] RANDY RAMIREZ [facility] ([facility]) [address] [place], [place] [address] 12/06/2023 14:57:41 12/06/2023 15:43:35 Skin irritation 467853831 L30.9 Bilateral wrist pain 893 8277169 8916578 M25.531 M25.532 Encouraged patient to wear her wrist braces as needed during the day and at bedtime. [id number] Bobo Negrete DO [facility] ([facility]) [address] [place] [address] 5 12/26/2023 15:02:57 12/26/2023 15:44:36 Sore throat 079670746 J02.9 with mouth sores. likely viral fluids. wait and watch, expect slow improvemen t in the next 7 days. Acute bronchitis 6437843 2 J20.9 likely viral, prn albuterol. Hematochezia 234049501 K 92.1 with melena. hold eliquis x 2 doses then restart. if symptoms return, come back in for re-eval with pcpc. [id number] RANDY RAMIREZ [facility] ([facility]) [address] [place] [address] [id number] 5 01/04/2024 10:56:22 01/04/2024 12:07:28 Increased frequency of urination 587048812 R35.0 Hold furosemide noon dosing x 2 weeks. [id number] RANDY RAMIREZ [facility] ([facility]) [address] [place], [place] [address] 03/22/2024 11:01:41 03/22/2024 11:41:30 Lives in independent half-way 560330985 Z59.3 Stop Probiotic. Constipation 81207026 K5 9.00 Nasal mucosa dry 3463281 2 J34.89 Conjunctivitis 3477499 H 10.9 Essential hypertension 18479516 I10 Follows with cardiology , started Losartan. Home readings have been 110s-140s/ 60-80s. Thickened nails 26010400 5 Q84.5 [id number] RANDY RAMIREZ [facility] ([facility]) [address] [place] [address] [id number] 5 05/02/2024 10:57:11 05/02/2024 12:22:02 Nocturnal enuresis 1837806 N39.44 DDAVP no longer helping. Stops drinking after 8pm. Lives in i ndependent half-way 092085229 Z59.3 Discontinu e The following medication s due to non-use:1. TAO2. Triad wound dressing.3 . Ventolin Inhaler4. Eucerin cream5. Ciclopirox cream Seasonal allergy 6042963 04 J30.2 Morbid obesity 321453656 E66.01 Return to 2000 calorie diet, 1 free drink per day, 1 free healthy outing per month. If weight is not down during next visit, will decrease calorie count to 1800. Personality disorder 334 [address]60[address] Hudson. Chronic ki dney disease stage 3 555073384 N18.31 Continued monitoring . Acute gastroenteritis 69 871100 K52.9 Resolved. [id number] RANDY RAMIREZ [facility] ([facility]) [address] [place] [id number] 5 05/30/2024 11:42:19 05/30/2024 12:53:27 Lives in independent half-way 608630173 Z59.3 Peripheral vascular disease 293118221 I73.9 Morbid obesity 087348398 E66.01 Return to 2000 calorie diet. If weight goes up, will go back to counting drinks. She has been being more active and she does not want to go back up to her bigger clothes so she wants to keep working hard. Sleep apnea 33224034 G47 .30 Wearing CPAP nightly. Nocturnal enuresis 25085 08 N39.44 1 accident the last week. [id number] ANTOINETTE HODGE PA-C [facility] ([facility]) [address] [place] [address] [id number] 5 06/12/2024 13:12:23 06/12/2024 13:49:42 Cough 66145268 R05.9 COVID-19 076099052 U07.1 [id number] RANDY RAMIREZ [facility] ([facility]) [address] [place] [address] 09/06/2024 12:27:34 09/06/2024 13:57:47 Infection of skin 868241174 L08.9 Edema of l ower extremity 952926527 I73.9 Morbid obesity 142489637 E66.01 Return to 2000 calorie diet. Will go back to counting drinks and recheck in 1 month to see where her weight is. [id number] RANDY RAMIREZ [facility] ([facility]) [address] [place] [address] 09/20/2024 10:52:33 09/20/2024 11:43:37 Irregular periods 12043415 N92.6 Follow-up with [employer]. Heating pad for cramping. Continue exercising and eating better. [id number] RANDY RAMIREZ [facility] ([facility]) [address] [place] [address] 10/03/2024 14:55:52 10/03/2024 16:55:17 Abdominal pain 66156162 R10.9 Health Concerns Section Related Observation LastModified by Organization Detai ls LastModified Time None Recorded Concern Status LastModified by Organization Details LastModified Time None Recorded Advance Directives Directive None Recorded Payers Insurance Date Sequence Insurance Name Policy Number Policy Barone Covered Member ID Barone Member ID Guarantor Name 10/02/2024 [place] [facility] Deann Vega [id number] Antoinette Mortensen 10/02/2024 1 [place] Deann Vega [id number] Antoinette Mortensen Notes Date Note Type Note Provider Name and Address Organization Details Recorded Time text/html IncontinenceReported bypatient.Quality:urgency incontinence Severity:severe Timing:chronicObstructive Sleep ApneaReported bypatient.Severity:severe Timing:chronic Context:inconsistent sleep routine RANDY RAMIREZ [address] [place] [address], [phone], [facility] [place] 06/01/2024 19:11:26 5 text/html walk in patientpatient is here today for nausea, body ache, vomiting, cough, congestion that started 3 days agoHas been exposed to covid. ANTOINETTE HODGE PA-C [address] [place], [address], [facility] [place] 06/12/2024 13:48:57 5 text/html General Rash/Skin LesionReported bypatient.Location:abdome n; left buttock Quality:painful FERNDharmesh GRIDER, [facility] [place], [address], [facility] [place] 09/11/2024 17:37:54 5 text/html Irregular MensesReported bypatient.Quality:light Duration:7-10 days/month Severity:mild Associated Symptoms:abdominal pain; cramping. [facility], [facility] [address] [place], [address], [facility], [place] 09/20/2024 11:43:14 OBGyn Episode No OBEpisode recorded.
--- OUTSIDE RECORDS SUMMARY | 2024-10-03 16:13 | XMS_ITS | Encounter Summary ---
Author Organization [facility] Address [address] [place] [address] Care Team Providers Care Aircraft Air Conditioning Mechanic Name Role Phone Fern Aguilar [place] Primary Care Provider [phone] Encounter Details Date Type Department Care Team (Late st Contact Info) Description 11/20/2004 Outpatient Historical [facility] Family Medicine Carlotta [address] [place] [address] Kaiser Patel, DO [address] [phone] Social History Tobacco Use Types Packs/Day Years Used Date Smoking Tobacco: Never Assessed Comments Unknown Sex and Gender Information Value Date Recorded Sex Assigned at Not on file Legal Sex 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 Gender Identity Not on file Sexual Orientation Not on file documented as of this encounter Plan of Treatment Upcoming Encounters Date Type Department Care Team (Late st Contact Info) Description 12/25/2024 10:30 AM CDT Office Visit [facility] [address] [place] [address] Kathy Jackson FNP [address] [place] [phone] 02/08/2025 9:30 AM HYDROELECTRIC PLANT OPERATOR Office Visit [facility] [address] [place] [address] Leana Pederson PA [address] [place] [address] documented as of this encounter Visit Diagnoses Not on filedocumented in this encounter Care Teams Aircraft Air Conditioning Mechanic Relationship Specialty Start Date End Date Fern Aguilar FNP [address] [place] [address] PCP - General Nurse Practitioner Family 05/08/20 documented as of this encounter
--- OUTSIDE RECORDS SUMMARY | 2024-10-03 16:13 | XMS_ITS | Encounter Summary ---
Author Organization [facility] Address [address] [place] [address] Care Team Providers Care Process Designer Name Role Phone Fern Aguilar [facility] Primary Care Provider [phone] Encounter Details Date Type Department Care Team (Late st Contact Info) Description 09/25/2024 External Device Data [facility] ABSTRACTION Provider, Abstract NO ADDRESS ON FILE Social History Tobacco Use Types Packs/Day Years Used Date Smoking Tobacco: Every Day Smokeless Tobacco: Never Alcohol Use Standard Drinks/Week Comments No 0 (1 standard drink = 0.6 oz pur e alcohol) social Comments No Sex and Gender Information Value Date Recorded Sex Assigned at Not on file Legal Sex Female 10:00 PM ADJUNCT LECTURER Gender Identity Not on file Sexual Orientation Not on file documented as of this encounter Plan of Treatment Upcoming Encounters Date Type Department Care Team (Late st Contact Info) Description 12/25/2024 10:30 AM CDT Office Visit [facility] Urology [address] [place] [phone] Kathy Jackson FNP [address] [place] [phone] 02/08/2025 9:30 AM ADJUNCT LECTURER Office Visit [facility] [address] [place] [phone] Leana Pederson PA [address] [place] [phone] documented as of this encounter Visit Diagnoses Not on filedocumented in this encounter Care Teams Process Designer Relationship Specialty Start Date End Date Fern Aguilar FNP [address] [place] [phone] PCP - General Nurse Practitioner Family 05/08/20 documented as of this encounter
--- OUTSIDE RECORDS SUMMARY | 2024-10-03 16:13 | XMS_ITS | Encounter Summary ---
Author Organization [facility] Address [address] [place] [address] Care Team Providers Care Single Stroke Preformer Name Role Phone Fern Aguilar DIRECTOR INTEGRATED Primary Care Provider [phone] Encounter Details Date Type Department Care Team (Latest Contact Info) Description 05/30/2004 Outpatient Historical [facility] Kevin Camacho MD NO ADDRESS ON FILE NONPSYCHOTIC MENTAL DISORDER NOS (Primary Dx) Social History Tobacco Use Types Packs/Day Years Used Date Smoking Tobacco: Never Assessed Comments Unknown Sex and Gender Information Value Date Recorded Sex Assigned at Not on file Legal Sex Female 10:00 PM SERVICE DISMANTLER Gender Identity Not on file Sexual Orientation Not on file documented as of this encounter Plan of Treatment Upcoming Encounters Date Type Department Care Team (Late st Contact Info) Description 12/25/2024 10:30 AM CDT Office Visit [facility] [address] [place] [phone] Kathy Jackson [address] [place] [address] 02/08/2025 9:30 AM SERVICE DISMANTLER Office Visit [facility] [address] [place] [address] Leana Pederson PA [address] [place] [address] documented as of this encounter Procedures Procedure Name Priority Date/Time Associated Diagnosis Comments CBC WITH DIFFERENTIAL Routine 05/30/2004 6:17 PM SERVICE DISMANTLER CBC WITH DIFFERENTIAL Routine 05/30/2004 6:17 PM SERVICE DISMANTLER LIPASE Routine 05/30/2004 6:17 PM SERVICE DISMANTLER HEPATIC FUNCTION PANEL Routine 05/30/2004 6:17 PM SERVICE DISMANTLER BASIC METABOLIC PANEL Routine 05/30/2004 6:17 PM SERVICE DISMANTLER DRUG SCREEN, URINE Routine 05/30/2004 6: 03 PM SERVICE DISMANTLER URINALYSIS W/REFLEX MICROSCOPIC Routine 05/30/2004 6:03 PM SERVICE DISMANTLER documented in this encounter Results * BASIC METABOLIC PANEL (05/30/2004 6:17 PM SERVICE DISMANTLER) GLUCOSE 86 65 - 109 mg/dL INTERFACE SYSTEM CREATININE 0.6 0.4 - 1.2 mg/dL INTERFACE SYSTEM CALCIUM 9.1 8.6 - 10.2 mg/dL INTERFACE SYSTEM BUN 15 6 - 20 mg/dL INTERFACE SYSTEM SODIUM 140 135 - 145 mmol/L INTERFACE SYSTEM POTASSIUM 3.9 3.5 - 4.9 mmol/L INTERFACE SYSTEM CHLORIDE 108 96 - 108 mmol/L INTERFACE SYSTEM CO2 26 22 - 30 mmol/L INTERFACE SYSTEM 05/30/2004 6:17 PM SERVICE DISMANTLER us Kevin Lott MD CHEMISTRY ORDERABLES Final Res ult INTERFACE SYSTEM Refer to clinic/hospital department * (ABNORMAL) CBC WITH DIFFERENTIAL (05/30/2004 6:17 PM SERVICE DISMANTLER) NEUTROPHIL ABSOLUTE 6.50 1.90 - 7.00 K/uL INTERFACE SYSTEM LYMPHOCYTE ABSOLUTE 4.88(H) 0.70 - 4.50 K/uL INTERFACE SYSTEM MONOCYTE ABSOLUTE 0.63 0.10 - 1.30 K/uL INTERFACE SYSTEM EOSINOPHIL ABSOLUTE 0.38 0.00 - 0.70 K/uL INTERFACE SYSTEM BASOPHILS ABSOLUTE 0.13 0.00 - 0.20 K/uL INTERFACE SYSTEM NEUTROPHILS, SEG 52 45 - 70 % INT ERFACE SYSTEM LYMPHOCYTES 33 16 - 45 % INTERFAC E SYSTEM MONOCYTES 5 3 - 13 % INTERFACE SYSTEM EOSINOPHILS 3 0 - 7 % INTERFAC E SYSTEM BASOPHILS 1 0 - 2 % INTERFACE SYSTEM ATYPICAL LYMPHOCYTE 6(H) 0 - 5 % INTERFACE SYSTEM PLATELET EST. Normal Normal INTERF ROMULO SYSTEM MACROCYTES Slight INTERFACE SYSTEM 05/30/2004 6:17 PM SERVICE DISMANTLER Kevin Lott MD HEMATOLOGY ORDERABLES Final Re sult Performing Organization Address [facility] Phone Number INTERFACE SYSTEM Refer to clinic/hospital department * (ABNORMAL) CBC WITH DIFFERENTIAL (05/30/2004 6:17 PM SERVICE DISMANTLER) WBC 12.5(H) 4.0 - 9.8 K/uL INTERFACE SYSTEM RBC 4.60 3.90 - 4.90 M/uL INTERFACE SYSTEM HEMOGLOBIN 15.2(H) 11.8 - 14.8 g/dL INTERFACE SYSTEM HEMATOCRIT 45.6(H) 35.5 - 44.0 % INTERFACE SYSTEM MCV 99.1(H) 82.0 - 99.0 fL INTERFACE SYSTEM MCH 33.0(H) 27.2 - 32.6 pg INTERFACE SYSTEM MCHC 33.3 31.5 - 35.5 % INTERFACE SYSTEM RDW 12.8 11.5 - 14.5 % INTERFACE SYSTEM RDW-STDEV 46.2 37.1 - 48.7 fL INTERFACE SYSTEM PLATELETS 233 140 - 350 K/uL INTERFACE SYSTEM MPV 12.1 9.3 - 12.4 fL INTERFACE SYSTEM 05/30/2004 6:17 PM SERVICE DISMANTLER Kevin Lott MD HEMATOLOGY ORDERABLES Final Re sult Performing Organization Address [facility] Co de Phone Number INTERFACE SYSTEM Refer to clinic/hospital department * (ABNORMAL) HEPATIC FUNCTION PANEL (05/30/2004 6:17 PM SERVICE DISMANTLER) AST 18 12 - 32 U/L INTERFACE SYSTEM ALKALINE PHOSPHATASE 143(H) 35 - 104 U/L INTERFACE SYSTEM BILIRUBIN TOTAL 0.2 0.2 - 1.0 mg/dL INTERFACE SYSTEM ALBUMIN 4.0 3.4 - 4.8 g/dL INTERFACE SYSTEM TOTAL PROTEIN 7.3 6.0 - 8.3 g/dL INTERFACE SYSTEM ALT 17 0 - 31 U/L INTERFACE SYSTEM BILIRUBIN DIRECT <0.1 0.0 - 0.3 mg/dL INTERFACE SYSTEM 05/30/2004 6:17 PM SERVICE DISMANTLER us Kevin Lott MD CHEMISTRY ORDERABLES Final Res ult Performing Organization Address [facility] Phone Number INTERFACE SYSTEM Refer to clinic/hospital department * LIPASE (05/30/2004 6:17 PM SERVICE DISMANTLER) LIPASE 29 13 - 60 U/L INTERFAC E SYSTEM 05/30/2004 6:17 PM SERVICE DISMANTLER us Kevin Lott MD CHEMISTRY ORDERABLES Final Res ult Performing Organization Address [facility] Phone Number INTERFACE SYSTEM Refer to clinic/hospital department * URINALYSIS (05/30/2004 6:03 PM SERVICE DISMANTLER) COLOR UA Yellow INTERFACE SYSTEM CLARITY UA Clear Clear INTERFACE SYSTEM SPECIFIC GRAVITY UA 1.015 1.001 - 1.035 INTERFACE SYSTEM PH UA 7.0 5.0 - 8.0 INTERFACE SYSTEM LEUKOCYTE ESTERASE UA Negative Negative INTERFACE SYSTEM NITRITE UA Negative Negative INTERFACE SYSTEM PROTEIN UA Negative Negative INTERFACE SYSTEM GLUCOSE UA Negative Negative INTERFACE SYSTEM KETONES UA Negative Negative INTERFACE SYSTEM UROBILINOGEN UA <1 <1 EU INTE RFACE SYSTEM BILIRUBIN UA Negative Negative INTERFA CE SYSTEM BLOOD UA Negative Negative INTERFACE SYSTEM 05/30/2004 6:03 PM SERVICE DISMANTLER us Kevin Lott MD URINE ORDERABLES Final Result Performing Organization Address [facility] Phone Number INTERFACE SYSTEM Refer to clinic/hospital department * DRUG SCREEN, URINE (05/30/2004 6:03 PM SERVICE DISMANTLER) COMMENT, TOXICOLOGY See Separate Comment INTERFACE SYSTEM [...] PCP QUAL, URINE Negative INTE RFACE SYSTEM 05/30/2004 6:03 PM SERVICE DISMANTLER us Kevin Lott MD URINE ORDERABLES Final Result INTERFACE SYSTEM Refer to clinic/hospital department documented in this encounter Visit Diagnoses Diagnosis Unspecified nonpsychotic mental disorder- Primary documented in this encounter Care Teams Single Stroke Preformer Relationship Specialty Start Date End Date Fern Aguilar FNP [address] [place] [address] PCP - General Nurse Practitioner Family 05/08/20 documented as of this encounter
--- OUTSIDE RECORDS SUMMARY | 2024-10-03 16:13 | XMS_ITS | Encounter Summary ---
Author Organization [facility] Address [address] [place] [address] Care Team Providers Care Saddle Stitching Machine Operator Name Role Phone Fern Aguilar STOVE TENDER Primary Care Provider [phone] Encounter Details Date Type Department Care Team (Latest Contact Info) Description 12/21/2004 Outpatient Historical [facility] Hoang Martinez JOINT PAIN-L/LEG (Primary Dx) Social History Tobacco Use Types Packs/Day Years Used Date Smoking Tobacco: Never Assessed Comments Unknown Sex and Gender Information Value Date Recorded Sex Assigned at Not on file Legal Sex Female 10:00 PM LICENSED PHYSICAL THERAPIST Gender Identity Not on file Sexual Orientation Not on file documented as of this encounter Plan of Treatment Upcoming Encounters Date Type Department Care Team (Late st Contact Info) Description 12/25/2024 10:30 AM CDT Office Visit [facility] Urology [address] [place] [phone] [facility] [address] [place] [address] 02/08/2025 9:30 AM LICENSED PHYSICAL THERAPIST Office Visit [facility] [address] [place] [address] Leana Pederson PA [address] [place] [address] documented as of this encounter Visit Diagnoses Diagnosis Pain in joint, lower leg- Primary documented in this encounter Care Teams Saddle Stitching Machine Operator Relationship Specialty Start Date End Date Fern Aguilar FNP [address] [place] [address] PCP - General Nurse Practitioner Family 05/08/20 documented as of this encounter
--- OUTSIDE RECORDS SUMMARY | 2024-10-03 16:13 | XMS_ITS | Encounter Summary ---
Author Organization [facility] Address [address] [place] [address] Care Team Providers Care Physical Therapy Aides Teacher Name Role Phone Fern Aguilar RANDY Primary Care Provider [phone] Encounter Details Date Type Department Care Team (Latest Contact Info) Description 08/30/2005 Inpatient Historical HIS INPATIENT IN BED Brandan Churchill MD [address] [place] [phone] Jessica Arriola MD [address] [place] [address] Poisoning by Aromatic Analgesics, not Elsewhere Classified (Primary Dx) Social History Tobacco Use Types Packs/Day Years Used Date Smoking Tobacco: Never Assessed Comments Unknown Sex and Gender Information Value Date Recorded Sex Assigned at Not on file Legal Sex Female 10:00 PM ENGINEERING LIBRARIAN Gender Identity Not on file Sexual Orientation Not on file documented as of this encounter Plan of Treatment Upcoming Encounters Date Type Department Care Team (Late st Contact Info) Description 12/25/2024 10:30 AM CDT Office Visit [facility] [address] [place] [phone] Kathy Jackson FNP [address] [facility] [address] [place] [phone] 02/08/2025 9:30 AM ENGINEERING LIBRARIAN Office Visit [facility] [address] [place] [phone] Leana Pederson PA [address] [place] [phone] documented as of this encounter Procedures Procedure Name Priority Date/Time Associated Diagnosis Comments HEMOGLOBIN A1C Routine 08/31/2005 10:10 AM CDT ACETAMINOPHEN LEVEL Routine 08/31/2005 1 0:10 AM CDT PROTIME-INR Routine 08/31/2005 5:15 AM CDT HEPATIC FUNCTION PANEL Routine 6 5:15 AM CDT BASIC METABOLIC PANEL Routine 08/31/2005 5:15 AM CDT ACETAMINOPHEN LEVEL Routine 08/30/2005 9 :15 PM CDT CBC WITH DIFFERENTIAL Routine 08/30/2005 1:15 PM CDT CBC WITH DIFFERENTIAL Routine 08/30/2005 1:15 PM CDT PROTIME-INR Routine 08/30/2005 1:15 PM CDT ETHANOL LEVEL Routine 08/30/2005 1:15 PM CDT ACETAMINOPHEN LEVEL Routine 08/30/2005 1 :15 PM CDT SALICYLATE LEVEL Routine 08/30/2005 1:15 PM CDT HEPATIC FUNCTION PANEL Routine 6 1:15 PM CDT BASIC METABOLIC PANEL Routine 08/30/2005 1:15 PM CDT DRUG SCREEN, URINE Routine 08/30/2005 1: 01 PM CDT HCG QUALITATIVE, URINE Routine 6 1:01 PM CDT documented in this encounter Results * HEMOGLOBIN A1C (08/31/2005 10:10 AM CDT) HEMOGLOBIN A1C 5.3 4.7 - 6.4 % of Hgb INTERFACE SYSTEM GLUCOSE, MEAN BLOOD 90 mg/dL INTERFACE SYSTEM 08/31/2005 10:1 0 AM CDT Brandan Churchill MD CHEMISTRY ORDERABLES Final Re sult Performing Organization Address [facility] Phone Number INTERFACE SYSTEM Refer to clinic/hospital department * (ABNORMAL) ACETAMINOPHEN LEVEL (08/31/2005 10:10 AM CDT) ACETAMINOPHEN LEVEL <0.7(L) 10.0 - 20.0 ug/mL INTERFACE SYSTEM 08/31/2005 10:1 0 AM CDT Brandan Churchill MD CHEMISTRY ORDERABLES Final Re sult Performing Organization Address [facility] Phone Number INTERFACE SYSTEM Refer to clinic/hospital department * (ABNORMAL) BASIC METABOLIC PANEL (08/31/2005 5:15 AM CDT) GLUCOSE 93 65 - 99 mg/dL INTERFACE SYSTEM Comment:Note: Effective August 17, 2005, reference range now reflects a fasting st ate. CREATININE 0.7 0.4 - 1.2 mg/dL INTERFACE SYSTEM CALCIUM 8.3(L) 8.6 - 10.2 mg/dL INTERFACE SYSTEM BUN 8 6 - 20 mg/dL INTERFACE SYSTEM SODIUM 141 135 - 145 mmol/L INTERFACE SYSTEM POTASSIUM 4.0 3.5 - 4.9 mmol/L INTERFACE SYSTEM CHLORIDE 111(H) 96 - 108 mmol/L INTERFACE SYSTEM CO2 24 22 - 30 mmol/L INTERFACE SYSTEM 08/31/2005 5:15 AM CDT Brandan Churchill MD CHEMISTRY ORDERABLES Final Re sult Performing Organization Address [facility] Phone Number INTERFACE SYSTEM Refer to clinic/hospital department * (ABNORMAL) PROTIME-INR (08/31/2005 5:15 AM CDT) PROTIME 14.9(H) 12.4 - 14.7 Seconds INTERFACE SYSTEM INR 1.2(H) 0.9 - 1.1 INTERFACE SYSTEM Comment: INR Therapeutic Range: Adult: 2.0 - 3.0 for pulmonary embolism or prophylaxis against venous thrombosis or systemic embolization. 2.0 - 3.0 for patients with tissue heart valves. 2.5 - 3.5 for patients with mechanical heart valves or post IL. Pediatric (12 years and under): 1.5 - 3.0 Although the target range in children is not well established , INR values of 1.5 - 3.0 are recommended for most patients. Higher values have been used in children with prosthetic cardiac valves and hereditary clotting disorders. (<3 days) therapeutic ranges have not been established. 08/31/2005 5:15 AM CDT Brandan Churchill MD HEMATOLOGY ORDERABLES Final R esult Performing Organization Address [facility] Phone Number INTERFACE SYSTEM Refer to clinic/hospital department * (ABNORMAL) HEPATIC FUNCTION PANEL (08/31/2005 5:15 AM CDT) AST 15 12 - 32 U/L INTERFACE SYSTEM ALKALINE PHOSPHATASE 99 35 - 104 U/L INTERFACE SYSTEM BILIRUBIN TOTAL 0.2 0.2 - 1.0 mg/dL INTERFACE SYSTEM ALBUMIN 3.0(L) 3.4 - 4.8 g/dL INTERFACE SYSTEM TOTAL PROTEIN 5.9(L) 6.0 - 8.3 g/dL INTERFACE SYSTEM ALT 17 0 - 31 U/L INTERFACE SYSTEM BILIRUBIN DIRECT <0.1(L) 0.0 - 0.3 mg/dL INTERFACE SYSTEM 08/31/2005 5:1 5 AM CDT Brandan Churchill MD CHEMISTRY ORDERABLES Final Re sult Performing Organization Address [facility] Phone Number INTERFACE SYSTEM Refer to clinic/hospital department * (ABNORMAL) ACETAMINOPHEN LEVEL (08/30/2005 9:15 PM CDT) ACETAMINOPHEN LEVEL 46.6(H) 10.0 - 20.0 ug/mL INTERFACE SYSTEM 08/30/2005 9:15 PM CDT Brandan Churchill MD CHEMISTRY ORDERABLES Final Re sult Performing Organization Address [facility] Co de Phone Number INTERFACE SYSTEM Refer to clinic/hospital department * (ABNORMAL) BASIC METABOLIC PANEL (08/30/2005 1:15 PM CDT) GLUCOSE 169(H) 65 - 99 mg/dL INTERFACE SYSTEM Comment:Note: Effective August 17, 2005, reference range now reflects a fasting st ate. CREATININE 0.7 0.4 - 1.2 mg/dL INTERFACE SYSTEM CALCIUM 9.2 8.6 - 10.2 mg/dL INTERFACE SYSTEM BUN 12 6 - 20 mg/dL INTERFACE SYSTEM SODIUM 140 135 - 145 mmol/L INTERFACE SYSTEM POTASSIUM 4.0 3.5 - 4.9 mmol/L INTERFACE SYSTEM CHLORIDE 109(H) 96 - 108 mmol/L INTERFACE SYSTEM CO2 23 22 - 30 mmol/L INTERFACE SYSTEM 08/30/2005 1:15 PM CDT Jessica Arriola MD CHEMISTRY ORDERABLES Final Result Performing Organization Address [facility] Phone Number INTERFACE SYSTEM Refer to clinic/hospital department * CBC WITH DIFFERENTIAL (08/30/2005 1:15 PM CDT) NEUTROPHILS 56 45 - 70 % INTERFAC E SYSTEM LYMPHOCYTES 33 16 - 45 % INTERFAC E SYSTEM MONOCYTES 8 3 - 13 % INTERFACE SYSTEM EOSINOPHILS 3 0 - 7 % INTERFAC E SYSTEM BASOPHILS 0 0 - 2 % INTERFACE SYSTEM NEUTROPHIL ABSOLUTE 6.27 1.90 - 7.00 K/uL INTERFACE SYSTEM LYMPHOCYTE ABSOLUTE 3.70 0.70 - 4.50 K/uL INTERFACE SYSTEM MONOCYTE ABSOLUTE 0.91 0.10 - 1.30 K/uL INTERFACE SYSTEM EOSINOPHIL ABSOLUTE 0.39 0.00 - 0.70 K/uL INTERFACE SYSTEM BASOPHILS ABSOLUTE 0.05 0.00 - 0.20 K/uL INTERFACE SYSTEM 08/30/2005 1:15 PM CDT Jessica Arriola MD HEMATOLOGY ORDERABLES [place] l Result Performing Organization Address [facility] de Phone Number INTERFACE SYSTEM Refer to clinic/hospital department * (ABNORMAL) CBC WITH DIFFERENTIAL (08/30/2005 1:15 PM CDT) WBC 11.3(H) 4.0 - 9.8 K/uL INTERFACE SYSTEM RBC 4.32 3.90 - 4.90 M/uL INTERFACE SYSTEM HEMOGLOBIN 13.9 11.8 - 14.8 g/dL INTERFACE SYSTEM HEMATOCRIT 41.3 35.5 - 44.0 % INTERFACE SYSTEM MCV 95.6 82.0 - 99.0 fL INTERFACE SYSTEM MCH 32.2 27.2 - 32.6 pg INTERFACE SYSTEM MCHC 33.7 31.5 - 35.5 % INTERFACE SYSTEM RDW 12.2 11.5 - 14.5 % INTERFACE SYSTEM RDW-STDEV 43.0 37.1 - 48.7 fL INTERFACE SYSTEM PLATELETS 220 140 - 350 K/uL INTERFACE SYSTEM MPV 11.5 9.3 - 12.4 fL INTERFACE SYSTEM 08/30/2005 1:15 PM CDT us Jessica Arriola MD HEMATOLOGY ORDERABLES [place] l Result Performing Organization Address [facility] de Phone Number INTERFACE SYSTEM Refer to clinic/hospital department * PROTIME-INR (08/30/2005 1:15 PM CDT) PROTIME 13.2 12.4 - 14.7 Seconds INTERFACE SYSTEM INR 1.0 0.9 - 1.1 INTERFACE SYSTEM Comment: INR Therapeutic Range: Adult: 2.0 - 3.0 for pulmonary embolism or prophylaxis against venous thrombosis or systemic embolization. 2.0 - 3.0 for patients with tissue heart valves. 2.5 - 3.5 for patients with mechanical heart valves or post [place]. Pediatric (12 years and under): 1.5 - 3.0 Although the target range in children is not well established , INR values of 1.5 - 3.0 are recommended for most patients. Higher values have been used in children with prosthetic cardiac valves and hereditary clotting disorders. (<3 days) therapeutic ranges have not been established. 08/30/2005 1:15 PM CDT us Jessica Arriola MD HEMATOLOGY ORDERABLES [place] l Result Performing Organization Address [facility] Phone Number INTERFACE SYSTEM Refer to clinic/hospital department * (ABNORMAL) SALICYLATE LEVEL (08/30/2005 1:15 PM CDT) SALICYLATE LEVEL <0.3(L) 2.0 - 25.0 mg/dL INTERFACE SYSTEM 08/30/2005 1:15 PM CDT us Jessica Arriola MD CHEMISTRY ORDERABLES Final Result Performing Organization Address [facility] Phone Number INTERFACE SYSTEM Refer to clinic/hospital department * (ABNORMAL) HEPATIC FUNCTION PANEL (08/30/2005 1:15 PM CDT) AST 14 12 - 32 U/L INTERFACE SYSTEM ALKALINE PHOSPHATASE 114(H) 35 - 104 U/L INTERFACE SYSTEM BILIRUBIN TOTAL 0.2 0.2 - 1.0 mg/dL INTERFACE SYSTEM ALBUMIN 3.3(L) 3.4 - 4.8 g/dL INTERFACE SYSTEM TOTAL PROTEIN 6.4 6.0 - 8.3 g/dL INTERFACE SYSTEM ALT 15 0 - 31 U/L INTERFACE SYSTEM BILIRUBIN DIRECT <0.1 0.0 - 0.3 mg/dL INTERFACE SYSTEM 08/30/2005 1:15 PM CDT us Jessica Arriola MD CHEMISTRY ORDERABLES Final Result Performing Organization Address [facility] Phone Number INTERFACE SYSTEM Refer to clinic/hospital department * ETHANOL LEVEL (08/30/2005 1:15 PM CDT) ETHANOL <10 <=10 mg/dL INTERFACE SYSTEM 08/30/2005 1:15 PM CDT us Jessica Arriola MD CHEMISTRY ORDERABLES Final Result Performing Organization Address [facility] [place] Phone Number INTERFACE SYSTEM Refer to clinic/hospital department * ACETAMINOPHEN LEVEL (08/30/2005 1:15 PM CDT) ACETAMINOPHEN LEVEL 460 10.0 - 20.0 ug/mL INTERFACE SYSTEM Comment:Results called to Me vogel at 08/30/2005 2:11 PM by [facility] and read back verified. 08/30/2005 1:15 PM CDT Jessica Arriola MD CHEMISTRY ORDERABLES Final Result Performing Organization Address [facility] [place] Phone Number INTERFACE SYSTEM Refer to clinic/hospital department * DRUG SCREEN, URINE (08/30/2005 1:01 PM CDT) COMMENT, TOXICOLOGY See Separate Comment [...] PCP QUAL, URINE Negative INTE RFACE SYSTEM 08/30/2005 1:01 PM CDT Jessica Arriola MD URINE ORDERABLES Final Res ult INTERFACE SYSTEM Refer to clinic/hospital department * HCG QUALITATIVE, URINE (08/30/2005 1:01 PM CDT) HCG QUAL URINE Negative Negative INTER FACE SYSTEM SPECIFIC GRAVITY UA 1.010 1.001 - 1.035 INTERFACE SYSTEM 08/30/2005 1:01 PM CDT Jessica Arriola MD URINE ORDERABLES Final Res ult INTERFACE SYSTEM Refer to clinic/hospital department documented in this encounter Visit Diagnoses Diagnosis Poisoning by aromatic analgesics, not elsewhere classified(965.4)- Primary Poisoning by aromatic analgesics, not elsewhere classified documented in this encounter Care Teams Physical Therapy Aides Teacher Relationship Specialty Start Date End Date Fern Aguilar FNP [address] [place] [phone] PCP - General Nurse Practitioner Family 05/08/20 documented as of this encounter
[2024-10-03 16:16] VITALS: BP 127/61; PULSE 80; RESP 18; TEMP 36.6; O2SAT 95; BMI 67.2
--- NOTE | 2024-10-03 17:28 | CTR_ITS ---
PROCEDURE INFORMATION: Exam: CT Abdomen And Pelvis With Contrast Exam date and time: 10/03/2024 7:10 PM Age: 39 years old Clinical indication: Abdominal pain; Localized; Left upper quadrant (luq); Prior surgery; Surgery date: 6+ months; Surgery type: Gb; Additional info: L abdominal pain TECHNIQUE: Imaging protocol: Computed tomography of the abdomen and pelvis with contrast. Radiation optimization: All CT scans at this facility use at least one of these dose optimization techniques: automated exposure control; mA and/or kV adjustment per patient size (includes targeted exams where dose is matched to clinical indication); or iterative reconstruction. Contrast material: OMNIPAQUE 350; Contrast volume: 100 ml; Contrast route: INTRAVENOUS (IV); COMPARISON: CT abdomen pelvis wo con [id number] 06/15/2021 7:23 PM RADIATION DOSE METRICS: Total DLP (mGy-cm): 1993.43 FINDINGS: Limitations: Suboptimal image quality due to patient body habitus. Liver: The liver is enlarged, measuring 22 cm craniocaudal. Gallbladder and biliary ducts: Status post cholecystectomy. Pancreas: Normal. No ductal dilation. Spleen: Calcified splenic granulomas. The spleen measures 15 cm AP. Adrenal glands: Normal. No mass. Kidneys and ureters: Stable asymmetric atrophy of the left kidney. No hydronephrosis bilaterally. Stomach and bowel: Moderate stool scattered throughout the colon. No bowel obstruction. Appendix: No evidence of appendicitis. Intraperitoneal space: Unremarkable. No free air. No significant fluid collection. Vasculature: Unremarkable. No abdominal aortic aneurysm. Lymph nodes: Unremarkable. No enlarged lymph nodes. Urinary bladder: Unremarkable as visualized. Reproductive: Uterus not well assessed. No definite suspicious adnexal mass. Bones/joints: Unremarkable. No acute fracture. Soft tissues: Unremarkable. CT/CT abdomen pelvis w con* [id number] IMPRESSION: 1. No acute findings in the abdomen/pelvis. 2. Hepatosplenomegaly.
--- NOTE | 2024-10-03 17:28 | W.ED.GIBLEED ---
HPI - GI Bleed General: Chief complaint: GI Bleed Stated complaint: R side pain, blood in stool Time Seen by Provider: 10/03/24 16:22 Source: patient Mode of arrival: wheelchair Limitations: physical limitation History of Present Illness: Patient is a 39-year-old female with a history of severe morbid obesity-BMI of 67, hypothyroidism, CHF, fibromyalgia, bipolar disorder, sleep apnea, hypertension, gastritis/GERD and psychiatric issues here along with her care staff ([facility]) for evaluation of left-sided abdominal pain beginning yesterday. Patient states she has noticed some bright and dark red blood in her stool . No history of hemorrhoids. Patient did undergo EGD and colonoscopy by Dr. Roman on 01/2024. Colonoscopy was unremarkable. Some degree of gastritis noted on her EGD. She is on a PPI for this. Staff states she visualized her stool and states there was a very scant amount of bright red blood in the toilet bowl not mixed in with stool. Patient's vital signs are stable upon arrival. She has not had any vomiting. Onset (ago): day(s) Pain Consistency: constant Severity: moderate Relieving factors: none Exacerbating factors: none Associated symptoms: Reports abdominal pain; Denies chills, fever(s), malaise, nausea, rash or vomiting Treatments Prior to Arrival: none Related Data Home Medications ?Medication ?Instructions ?Recorded ?Confirmed bupropion HCl 300 mg 24 hr tablet, 300 mg PO DAILY@02/16/20 04/18/24 extended release cetirizine 10 mg tablet 10 mg PO DAILY@02/16/20 04/18/24 fluticasone propionate 50 1 spray intranasal DAILY@02/16/20 04/18/24 mcg/actuation nasal spray,suspension potassium chloride 20 mEq 20 meq PO DAILY@02/16/20 04/18/24 tablet,extended release oxcarbazepine 300 mg tablet 300 mg PO TID 06/15/21 04/18/24 apixaban 5 mg tablet (Eliquis) 5 mg PO BID@11/26/21 04/18/24 Held on 01/25/24. Instructions: Resume on 01/27/24. epinephrine 0.3 mg/0.3 mL 0.3 mg IM Q4H PRN Allergic Reaction 11/26/21 04/18/24 injection, auto-injector (EpiPen 2-Norm) ergocalciferol (vitamin D2) 1,250 50,000 unit PO Q7D 11/26/21 04/18/24 mcg (50,000 unit) capsule (Vitamin D2) furosemide 40 mg tablet 40 mg PO DAILY@08 11/26/21 04/18/24 neomycin-bacitracn Zn-polymyx 3.5 1 applic topical BID PRN unknown 11/26/21 04/18/24 mg-400 unit-5,000 unit/gram top oint (Neosporin (amv-cwi-dgiqq)) calcium 600 mg (as 1 tab PO DAILY 02/12/22 04/18/24 carbonate)-vitamin D3 10 mcg (400 unit) tablet (Calcium 600 + D(3)) lactobacillus combination no.4 3 3,000 mmu cells PO DAILY 02/12/22 04/18/24 billion cell capsule (Probiotic) lidocaine 5 % topical patch 1 patch topical DAILY 02/12/22 04/18/24 menthol 1 applic topical BID PRN JOINT PAIN 02/12/22 04/18/24 aripiprazole 10 mg tablet 10 mg PO DAILY 01/17/23 04/18/24 ciclopirox 0.77 % topical cream 1 applic topical BID PRN Rash 01/17/23 04/18/24 furosemide 20 mg tablet 20 mg PO .@NOON 01/17/23 04/18/24 camphor-methyl salicylate-menthol See Rx Instructions .Route .COMPLEX 02/27/23 04/18/24 topical patch eucalyptus-menthol oral mucosal 1 shelby mucous membrane Q1H PRN Sore 02/27/23 04/18/24 lozenge Throat hydroxyzine HCl 25 mg tablet 25 mg PO BEDTIME Anxiety 02/27/23 04/18/24 oxybutynin chloride 5 mg 5 mg PO DAILY 02/27/23 04/18/24 tablet,extended release 24 hr meloxicam 15 mg tablet 15 mg PO DAILY 09/27/23 04/18/24 CPAP 01/24/24 04/19/24 lanolin alcohols-mineral 1 applic topical BID PRN Outbreak 01/24/24 04/18/24 oil-w.petrolatum-ceresin topical cream (Eucerin topical cream) sertraline 100 mg tablet 300 mg PO DAILY@0800 01/24/24 04/18/24 Previous Rx's ?Medication ?Instructions ?Recorded albuterol sulfate 90 mcg/actuation 2 inh inhalation Q4H PRN shortness 06/25/22 aerosol inhaler of breath or wheezing #6.7 grams acetazolamide 250 mg tablet 250 mg PO EVERY OTHER DAY #14 tabs 03/01/23 cyanocobalamin (vitamin B-12) 1,000 mcg PO DAILY #30 tabs 03/01/23 1,000 mcg tablet levothyroxine 175 mcg capsule 175 mcg PO DAILY #30 caps 03/01/23 gabapentin 600 mg tablet 300 mg (1/2 x 600 mg) PO 03/02/23 TID@08,,20 #30 tabs [place] #1 ea 03/14/23 Bedside Commode #1 ea 03/14/23 addison lift #1 ea 03/14/23 pantoprazole 40 mg tablet,delayed 40 mg PO BID 6 weeks #84 tabs 01/05/24 release (Protonix) pantoprazole 40 mg tablet,delayed 40 mg PO BID 6 weeks #84 tabs 01/25/24 release norethindrone (contraceptive) 0.35 0.35 mg PO DAILY #84 tabs 01/31/24 mg tablet methylprednisolone 4 mg tablets in See Rx Instructions PO .COMPLEX 03/11/24 a dose pack (Medrol (Norm)) #21 ea ondansetron 8 mg disintegrating 8 mg PO Q6H #14 tabs 04/19/24 tablet promethazine 25 mg rectal 25 mg MS Q6H PRN nausea and 04/19/24 suppository vomiting #12 ea pantoprazole 40 mg tablet,delayed 40 mg PO DAILY 1 month #30 tabs 05/14/24 release (Protonix) losartan 25 mg tablet See Rx Instructions .Route 06/11/24 .COMPLEX #90 tabs Allergies Allergy/AdvReac Type Severity Reaction Status Date / Time acetaminophen (From Tylenol) Allergy ALGY-Rash Verified 04/18/24 13:46 aspirin Allergy ALGY-Rash Verified 04/18/24 13:46 azithromycin Allergy ALGY-Rash Verified 04/18/24 13:46 bee venom protein (honey bee) Allergy ALGY-Anaphy Verified 04/18/24 13:46 laxis haloperidol (From Haldol) Allergy ADR-Seizure Verified 04/18/24 13:46 tramadol Allergy ADR-Seizure Verified 04/18/24 13:46 ibuprofen AdvReac Mild Unknown Verified 04/18/24 13:46 Review of Systems Const: Denies: fever(s), chills, body aches, fatigue or malaise Card: Denies: chest pain Resp: Denies: dyspnea GI: Reports: abdominal pain and hematochezia; Denies: nausea, vomiting, diarrhea, constipation or melena : Denies: flank pain, dysuria or hematuria Musc: Denies: back pain Skin/Breast: Denies: rash Neuro: Denies: dizziness PFSH ED PFSH: Medical History Obesity hypoventilation syndrome Chronic hypoxic respiratory failure Body mass index (BMI) greater than 70 in adult Morbid obesity BMI 80+; has some features of pradar willi syndrome, but states she was tested at [facility] and does not carry formal diagnosis Psychiatric disorder Benign essential HTN Nocturnal enuresis Nocturnal hypoxemia Elevated brain natriuretic peptide (BNP) level Suspected pulmonary embolism diagnosis in early 2021 for which chronic anticoagulation initiated Sleep apnea Sleep study 07/2021 severe sleep apnea with hypoxemia. Sleep titration recommended. Non-invasive ventilator recommended. As of 01/2023 has not had titration study. Bipolar disorder Nocturnal polyuria Fibromyalgia syndrome Congestive heart failure Echo 06/2021: LV systolic function normal with EF of 55 to 60%, mild pulmonary hypertension with RVSP 35-40mmHg Osteoarthritis Hypothyroidism [facility] endocrinology--Dr Meliza Jain Surgical History H/O laparoscopy (~2010) treatment of ovarian cysts; performed in [place] History of colonoscopy with polypectomy 2018 History of tonsillectomy and adenoidectomy History of placement of ear tubes History of cholecystectomy 2017-lap History of dental surgery Family History Grandmother Breast cancer Maternal--dx age unknown Diabetes Maternal Hypertension Maternal Mother Breast cancer dx age 40's ; unknown if hormone receptive Thyroid disease Grandfather No problems noted. Sister Thyroid disease Denies family history of Colon cancer Ovarian cancer Hypercholesteremia Uterine cancer Stroke Social History (Reviewed 10/03/24 @ 18:20 by MARY Marquez Smoking and tobacco/nicotine status: current every day tobacco/nicotine user Physical Exam Const: COMMON NORMALS: no acute distress, patient oriented x3, alert and well nourished EXAM LIMITATIONS: physical limitations (super morbid obesity with BMI of 67) GENERAL APPEARANCE: cooperative NUTRITIONAL APPEARANCE: obese morbidly obese ORIENTATION/CONSCIOUSNESS: Yes awake, Yes oriented to person, Yes oriented to place and Yes oriented to time Eye: COMMON NORMALS: no scleral icterus Resp: COMMON NORMALS: normal respiratory effort and clear to auscultation bilaterally AUSCULTATION: clear to auscultation bilaterally Cardio: COMMON NORMALS: regular rate and regular rhythm RATE: regular rate RHYTHM: regular rhythm GI: COMMON NORMALS: Normal to inspection, nondistended, normoactive bowel sounds present and Soft to palpation INSPECTION: Yes normal to inspection AUSCULTATION: Yes normoactive bowel sounds PALPATION: Yes Soft to palpation and Yes Tenderness to palpation present (GI) (throughout L side) RECTAL EXAM: visual inspection normal and heme negative stool OTHER: exam limited due to body habitus : COMMON NORMALS: Yes no CVA tenderness BLADDER/KIDNEY EXAM: Yes no CVA tenderness Back/Pelvis: COMMON NORMALS: no CVA tenderness Extremity: GENERAL: Yes normal exam except as noted Neuro: COMMON NORMALS: patient oriented x3, moves all extremities, no focal motor deficits and no sensory deficits noted SENSORIUM/ORIENTATION: Yes alert, Yes oriented to person, Yes oriented to place and Yes oriented to time Skin: COMMON NORMALS: no rashes or lesions noted GENERAL SKIN EXAM: no rashes or lesions noted Course Vital Signs: Vital signs: Vital Signs Temperature 97.8 F 10/03/24 16:16 Pulse Rate 80 10/03/24 16:16 Respiratory Rate 18 10/03/24 16:16 Blood Pressure 127/61 10/03/24 16:16 Pulse Oximetry 95 10/03/24 16:16 Oxygen Delivery Me thod Room Air 10/03/24 16:16 MDM - GI Bleed Medical Decision Making Patient clinically appears in no acute distress. Her vital signs are stable. Blood work overall is nonactionable. H&H is stable. Hemoccult was negative. CT abdomen and pelvis obtained showing no acute findings. Patient stable to follow-up with her primary care provider or provider over [facility]. Return ED precautions discussed. Medical Records I reviewed the patient's medical records. Lab Data I reviewed the patient's lab results. 10/03/24 17:30 10/03/24 17:30 Radiology Impressions Abdomen/Pelvis CT 10/03/24 17:28 IMPRESSION: 1. No acute findings in the abdomen/pelvis. 2. Hepatosplenomegaly. Laboratory Results WBC 10.55 10^3/uL (3.29-11.43) 10/03/24 17:30 RBC 3.99 10^6/uL (3.85-5.65) 10/03/24 17:30 Hgb 12.50 g/dL (11.27-16.99) 10/03/24 17: Hct 40.4 % (36-47) 10/03/24 17: MCV 101.3 fl (85-98) H 10/03/24 17:30 MCH 31.3 pg (27-33) 10/03/24 17: MCHC 30.9 g/dL (30-55) 10/03/24 17: RDW 12.6 % (12.1-15.1) 10/03/24 17:30 Plt Count 216 10^3/cmm (157-399) 10/03/24 17: MPV 10.7 fL (7.4-10.4) H 10/03/24 17:30 Neut % (Auto) 66.6 % 10/03/24 17:30 Lymph % (Auto) 24.3 % 10/03/24 17:30 [place] % (Auto) 5.9 % 10/03/24 17:30 Eos % (Auto) 1.9 % 10/03/24 17:30 Baso % (Auto) 0.7 % 10/03/24 17:30 Neut # (Auto) 7.04 10^3/uL (1.8-7.7) 10/03/24 17:30 Lymph # (Auto) 2.6 10^3/uL (0.8-4.8) 10/03/24 17:30 [place] # (Auto) 0.6 10^3/uL (0.2-0.9) 10/03/24 17:30 Eos # (Auto) 0.2 10^3/uL (0.0-0.8) 10/03/24 17:30 Baso # (Auto) 0.1 10^3/uL (0.0-0.1) 10/03/24 17:30 Nucleated RBC % (auto) 0 % 10/03/24 17: Nucleated RBCs # 0.0 /100WBC 10/03/24 17:30 Sodium 139 mmol/L (136-145) 10/03/24 17:30 Potassium 4.3 mmol/L (3.5-5.1) 10/03/24 17:30 Chloride 105 mmol/L (98-107) 10/03/24 17:30 Carbon Dioxide 23 mmol/L (22-29) 10/03/24 17:30 Anion Gap 15.3 (5-19) 10/03/24 17:30 BUN 28 mg/dL (6-20) H 10/03/24 17:30 Creatinine 0.9 mg/dL (0.5-0.9) 10/03/24 17:30 GFR Calculation 69.7 mL/min (90-130) L 10/03/24 17:30 Glucose 122 mg/dL (65-115) H 10/03/24 17:30 Calculated Osmolality 295 mOsm/kg (285-295) 10/03/24 17:30 Calcium 8.7 mg/dL (8.5-10.5) 10/03/24 17:30 Total Bilirubin 0.2 mg/dL (0.15-1.2) 10/03/24 17:30 AST 11 U/L (0-32) 10/03/24 17:30 ALT 13 U/L (0-33) 10/03/24 17:30 Alkaline Phosphatase 153 U/L (35-105) H 10/03/24 17:30 Total Protein 6.7 g/dL (6.6-8.7) 10/03/24 17:30 Albumin 3.7 g/dL (3.5-5.2) 10/03/24 17:30 Globulin 3.0 g/dL (1.3-4.6) 10/03/24 17:30 Lipase 29 U/L (13-60) 10/03/24 17:30 HCG, Qual Negative (Negative) 10/03/24 17:30 Urine Color Yellow (Yellow) 10/03/24 17:45 Urine Appearance Clear (CLEAR) 10/03/24 17:45 Urine pH 5.5 (5-7) 10/03/24 17:45 Ur Specific [place] 1.019 (1.005-1.030) 10/03/24 17:45 Urine Protein Negative (Negative) 10/03/24 17:45 Urine Glucose (UA) Negative (Normal) 10/03/24 17:45 Urine Ketones Trace (Negative) 10/03/24 17:45 Urine Blood Negative (Negative) 10/03/24 17:45 Urine Nitrate Negative (Negative) 10/03/24 17:45 Urine Bilirubin Negative (Negative) 10/03/24 17:45 Urine Urobilinogen 1.0 mg/dL (Negative) 10/03/24 17:45 Ur Leukocyte Esterase Trace (Negative) A 10/03/24 17:45 Urine RBC 0-2 /hpf (0-2) 10/03/24 17:45 Urine WBC 0-5 /hpf (0-5) 10/03/24 17:45 Ur Squamous Epith Cells 0-5 /hpf (0-5) 10/03/24 17:45 Amorphous Sediment Not Reportable 10/03/24 17:45 Urine Bacteria None seen /hpf (NONE) 10/03/24 17:45 Hyaline Casts 1.21 /lpf 10/03/24 17:45 All radiology interpretation(s) finalized by discharge Discharge Plan Discharge Patient Disposition: Home Clinical Impression: BRBPR (bright red blood per rectum) Abdominal pain Qualifiers: Abdominal location: generalized Qualified Code(s): R10.84 - Generalized abdominal pain Condition: Stable Prescriptions: No Action norethindrone (contraceptive) 0.35 mg tablet 0.35 mg PO DAILY Qty: 84 3RF (DME) Bedside Commode See Rx Instructions .Route .MEDSUPPLY Qty: 1 0RF Rx Instructions: due to patient needing to remain NWB besides heel transferring to utilize facility. (DME) [place]ip Socks See Rx Instructions .Route .MEDSUPPLY Qty: 1 0RF Rx Instructions: As directed (DME) addison lift See Rx Instructions .Route .MEDSUPPLY Qty: 1 0RF Rx Instructions: As directed meloxicam 15 mg tablet 15 mg PO DAILY pantoprazole [Protonix] 40 mg tablet,delayed release (DR/EC) 40 mg PO BID 42 Days Qty: 84 1RF pantoprazole [Protonix] 40 mg tablet,delayed release (DR/EC) 40 mg PO DAILY 30 Days Qty: 30 12RF losartan 25 mg tablet See Rx Instructions .ROUTE .COMPLEX Qty: 90 0RF Dose Instruction: TAKE 1 TABLET BY MOUTH EVERY DAY Rx Instructions: TAKE 1 TABLET BY MOUTH EVERY DAY oxcarbazepine 300 mg Tablet 300 mg PO TID cetirizine 10 mg Tablet 10 mg PO DAILY@08 fluticasone propionate 50 mcg/actuation [place],Suspension 1 spray INTRANASAL DAILY@14 bupropion HCl 300 mg Tablet Extended Release 24 Hr 300 mg PO DAILY@08 potassium chloride 20 mEq Tablet Extended Release 20 meq PO DAILY@08 ergocalciferol (vitamin D2) [Vitamin D2] 1,250 mcg (50,000 unit) capsule 50,000 unit PO Q7D Rx Instructions: on TUESDAY Eliquis 5 mg tablet 5 mg PO BID@08,20 furosemide 40 mg tablet 40 mg PO DAILY@08 Neosporin (vxh-zeg-qjqrq) 3.5mg-400 unit- 5,000 unit/gram Ointment 1 applic TOPICAL BID PRN (Reason: unknown) epinephrine [EpiPen 2-Norm] 0.3 mg/0.3 mL Auto-Injector 0.3 mg IM Q4H PRN (Reason: Allergic Reaction) lidocaine 5 % Adhesive Patch,Medicated 1 patch TOPICAL DAILY Rx Instructions: leave on most painful area for up to 12 hrs menthol Gel 1 applic TOPICAL BID PRN (Reason: JOINT PAIN) calcium carbonate-vitamin D3 [Calcium 600 + D(3)] 600 mg-10 mcg (400 unit) Tablet 1 tab PO DAILY Probiotic 3 billion cell Capsule 3,000 mmu cells PO DAILY Rx Instructions: administer with a meal oxybutynin chloride 5 mg tablet extended release 24hr 5 mg PO DAILY hydroxyzine HCl 25 mg Tablet 25 mg PO BEDTIME Rx Instructions: AND PRN TID NEEDED eucalyptus-menthol Lozenge 1 shelby mucous membrane Q1H PRN (Reason: Sore Throat) Rx Instructions: DISSOLVE 1 LOZENGE BY MOUTH EVERY HOUR NEEDED camphor-methyl salicyl-menthol Adhesive Patch,Medicated See Rx Instructions .ROUTE .COMPLEX Rx Instructions: Apply 1 patch topically and change as needed for sciatic pain. cyanocobalamin (vitamin B-12) 1,000 mcg tablet 1,000 mcg PO DAILY Qty: 30 0RF levothyroxine 175 mcg capsule 175 mcg PO DAILY Qty: 30 0RF acetazolamide 250 mg Tablet 250 mg PO EVERY OTHER DAY Qty: 14 0RF gabapentin 600 mg Tablet 300 mg PO TID@08,14,20 Qty: 30 0RF sertraline 100 mg tablet 300 mg PO DAILY@0800 (DME) CPAP Device Eucerin Cream 1 applic TOPICAL BID PRN (Reason: Outbreak) pantoprazole 40 mg tablet,delayed release (DR/EC) 40 mg PO BID 42 Days Qty: 84 1RF methylprednisolone [Medrol (Norm)] 4 mg tablets,dose pack See Rx Instructions .ROUTE .COMPLEX Qty: 21 0RF Rx Instructions: orally per package directions albuterol sulfate 90 mcg/actuation HFA aerosol inhaler 2 inh inhalation Q4H PRN (Reason: shortness of breath or wheezing) Qty: 6.7 1RF furosemide 20 mg tablet 20 mg PO .@NOON Rx Instructions: 20 mg orally at noon ciclopirox 0.77 % cream 1 applic topical BID PRN (Reason: Rash) Rx Instructions: Apply to red areas twice a day, as needed. aripiprazole 10 mg tablet 10 mg PO DAILY promethazine 25 mg suppository 25 mg MS Q6H PRN (Reason: nausea and vomiting) Qty: 12 0RF ondansetron 8 mg tablet,disintegrating 8 mg PO Q6H Qty: 14 0RF Rx Instructions: Take 1/2-1 tab every 6 hours as needed for nausea and vomiting Discharge Orders: Discharge ED (Routine); Ordered 10/03/24 Ordered By: Ada Machado Referrals: Fern Aguilar FNP [Primary Care Provider, Unknown] Patient Instructions: Abdominal Pain (ED), Patient Portal & [place] Instructions Activity Restrictions/Additional Instructions: As we discussed, your blood work here is nonactionable. Hemoccult (a test to determine whether there is blood in your stool) was negative. CT imaging of your abdomen/pelvis was obtained and unremarkable. She can follow-up with her primary care provider or provider through [facility] for further evaluation. Print Language: Iranian Coding Level of Care Code ED Plan Checker for Luis Carlos Lee
--- NOTE | 2024-10-03 17:31 | PC.NURSE ---
educated pt on need for urine, provided with hat and urine cup. pt denies trying at this time
[2024-10-03 17:35] LABS: Hematocrit 40.4 % (36-47); Hemoglobin 12.50 g/dL (11.27-16.99); Mean Corpuscular HGB Conc 30.9 g/dL (30-55); Mean Corpuscular Hemoglobin 31.3 pg (27-33); Mean Corpuscular Volume 101.3 fl (85-98); Nucleated Red Blood Cells % 0 %; Platelet Count 216 10^3/cmm (157-399); Red Blood Count 3.99 10^6/uL (3.85-5.65); White Blood Count 10.55 10^3/uL (3.29-11.43)
[2024-10-03 17:52] LABS: Alanine Aminotransferase 13 U/L (0-33); Albumin Level 3.7 g/dL (3.5-5.2); Alkaline Phosphatase 153 U/L (35-105); Anion Gap 15.3 (5-19); Aspartate Amino Transferase 11 U/L (0-32); Blood Urea Nitrogen 28 mg/dL (6-20); Calcium 8.7 mg/dL (8.5-10.5); Carbon Dioxide 23 mmol/L (22-29); Chloride 105 mmol/L (98-107); Creatinine Clr Calc Pharmacy 142.4214; Globulin 3.0 g/dL (1.3-4.6); Glucose 122 mg/dL (65-115); Lipase 29 U/L (13-60); Osmolality Calculated 295 mOsm/kg (285-295); Potassium 4.3 mmol/L (3.5-5.1); Sodium 139 mmol/L (136-145); Total Protein 6.7 g/dL (6.6-8.7)
[2024-10-03 18:11] LABS: HCG, Serum Qual Negative (Negative)
[2024-10-03 18:13] LABS: Glucose Urine UA Negative (Normal); Nitrate Urine Negative (Negative); Specific Gravity, Urine 1.019 (1.005-1.030)
[2024-10-03 18:18] LABS: Add Urine Microscopic? YES
[2024-10-03] MEDS: iohexol 350 mg/mL 500 mL Btl (per mL) IV (19:11)
[2024-10-03 20:41] VITALS: BP 127/54; PULSE 72; O2SAT 93
[2024-10-03 20:54] VITALS: BP 127/54; PULSE 73; O2SAT 94
== END 2024-10-03 20:56 | disposition home or self-care (01) ==
PROVIDERS: Emergency Medicine; Emergency Provider Physician Assistant; PCP Nurse Practitioner Family
DX: R10.84 Generalized abdominal pain (principal); K92.1 Melena; Z79.01 Long term (current) use of anticoagulants; Z72.0 Tobacco use; I11.0 Hypertensive heart disease with heart failure; I50.9 Heart failure, unspecified
CPT/HCPCS: 74177; 80053; 81001; 83690; 84703; 85025; 99285

== ENCOUNTER → 2024-11-06 10:46 | Outpatient (BNVA) | payer MEDICAID, SELFPAY | PROVIDERS: PCP Nurse Practitioner Family; Visit Provider Nurse Practitioner Women's Health | DX: N93.9 Abnormal uterine and vaginal bleeding, unspecified (principal); R53.83 Other fatigue | CPT/HCPCS: 80053; 82728; 83036; 83540; 84439; 84443; 84481; 85025; 86376; 87624 ==

== ENCOUNTER 2024-11-26 14:52 | Emergency (ER) | payer MEDICAID, SELFPAY ==
[2024-11-26 14:59] VITALS: BP 143/80; PULSE 65; TEMP 36.9; O2SAT 99
--- NOTE | 2024-11-26 15:01 | ED_ITS ---
HPI - SOB/Dyspnea 2 General: Chief Complaint: Shortness of Breath/Dyspnea Stated Complaint: SOB - anxiety History of Present Illness: HPI Narrative: 39-year-old female with a history of sev ere morbid obesity, hypothyroidism, CHF, fibromyalgia, bipolar disorder, sleep apnea, hypertension and psychiatric issues who presents emergency room with shortness of breath. She comes from a [facility]. They said she was somnolent and was needing her as needed O2 earlier. Currently she is got no increased work of breathing and breath sounds are clear. She is taken off oxygen on presentation and has had no oxygen requirements. Related Data Home Medications ?Medication ?Instructions ?Recorded ?Confirmed bupropion HCl 300 mg 24 hr tablet, 300 mg PO DAILY@02/16/20 11/06/24 extended release cetirizine 10 mg tablet 10 mg PO DAILY@02/16/20 0 11/06/24 fluticasone propionate 50 1 spray intranasal DAILY@02/16/20 11/06/24 mcg/actuation nasal spray,suspension potassium chloride 20 mEq 20 meq PO DAILY@02/16/20 11/06/24 tablet,extended release oxcarbazepine 300 mg tablet 300 mg PO TID 06/15/2108/26 apixaban 5 mg tablet (Eliquis) 5 mg PO BID@11/2611/06/24 Held on 01/25/24. Instructions: Resume on 01/27/24. epinephrine 0.3 mg/0.3 mL 0.3 mg IM Q4H PRN Allergic R eaction 11/26/21 11/06/24 injection, auto-injector (EpiPen 2-Norm) ergocalciferol (vitamin D2) 1,250 50,000 unit PO Q7D 0 11/26/21 11/06/24 mcg (50,000 unit) capsule (Vitamin D2) furosemide 40 mg tablet 40 mg PO DAILY@11/26/21 0 11/06/24 calcium 600 mg (as 1 tab PO DAILY 02/12/2208/26 carbonate)-vitamin D3 10 mcg (400 unit) tablet (Calcium 600 + D(3)) lactobacillus combination no.4 3 3,000 mmu cells PO DA THOMPSON 02/12/22 11/06/24 billion cell capsule (Probiotic) aripiprazole 10 mg tablet 10 mg PO DAILY 01/17/23 08/08/26 ciclopirox 0.77 % topical cream 1 applic topical BID P RN Rash 01/17/23 11/06/24 furosemide 20 mg tablet 20 mg PO .@NOON 01/17/2308/26 hydroxyzine HCl 25 mg tablet 25 mg PO BEDTIME Anxiety 02/27/23 11/06/24 CPAP 01/24/24 11/06/24 sertraline 100 mg tablet 300 mg PO DAILY@0800 4 11/06/24 Previous Rx's ?Medication ?Instructions ?Recorded albuterol sulfate 90 mcg/actuation 2 inh inhalation Q4 H PRN shortness 06/25/22 aerosol inhaler of breath or wheezing #6.7 g bryce acetazolamide 250 mg tablet 250 mg PO EVERY OTHER DAY #14 tabs 03/01/23 cyanocobalamin (vitamin B-12) 1,000 mcg PO DAILY #30 t abs 03/01/23 1,000 mcg tablet levothyroxine 175 mcg capsule 175 mcg PO DAILY #30 cap s 03/01/23 gabapentin 600 mg tablet 300 mg (1/2 x 600 mg) PO TID@08,14,20 #30 tabs Antislip Socks #1 ea 03/14/23 Bedside Commode #1 ea 03/14/23 addison lift #1 ea 03/14/23 norethindrone (contraceptive) 0.35 0.35 mg PO DAILY #8 4 tabs 01/31/24 mg tablet pantoprazole 40 mg tablet,delayed 40 mg PO DAILY Tue #30 tabs 05/14/24 release (Protonix) losartan 25 mg tablet See Rx Instructions .Route 0 06/11/24 .COMPLEX #90 tabs Allergies Allergy/AdvReac Type Severity Reaction Status Date / Time acetaminophen (From Tylenol) Allergy ALGY-Rash Verified 11/26/24 15:06 aspirin Allergy ALGY-Rash Verified 11/26/24 15:06 azithromycin Allergy ALGY-Rash Verified 11/26/24 15:06 bee venom protein (honey bee) Allergy ALGY-Anaphy Verified 11/26/24 15:06 laxis haloperidol (From Haldol) Allergy ADR-Seizure Verified 11/26/24 15:06 tramadol Allergy ADR-Seizure Verified 11/26/24 15:06 ibuprofen AdvReac Mild Unknown Verified 11/26/24 15:06 Review of Systems 2 Narrative: Constitutional symptoms: Negative except as documented in HPI. Skin symptoms: Negative except as documented in HPI. Eye symptoms: Negative except as documented in HPI. ENMT symptoms: Negative except as documented in HPI. Respiratory symptoms: Negative except as documented in HPI. Cardiovascular symptoms: Negative except as documented in HPI. Gastrointestinal symptoms: Negative except as documented in HPI. Genitourinary symptoms: Negative except as documented in HPI. Musculoskeletal symptoms: Negative except as documented in HPI. Neurologic symptoms: Negative except as documented in HPI. Psychiatric symptoms: Negative except as documented in HPI. Endocrine symptoms: Negative except as documented in HPI. PFS ED 2 PFSH: Medical History (Updated 11/26/24 @ 16:21 by Susan Lee MD) Obesity hypoventilation syndrome Chronic hypoxic respiratory failure Morbid obesity BMI 80+; has some features of pradar willi syndrome, but states she was tested at [facility] and does not carry formal diagnosis Psychiatric disorder Benign essential HTN Nocturnal enuresis Nocturnal hypoxemia Elevated brain natriuretic peptide (BNP) level Suspected pulmonary embolism diagnosis in early 2021 for which chronic anticoagulation initiated Sleep apnea Sleep study 07/2021 severe sleep apnea with hypoxemia. Sleep titration recommended. Non-invasive ventilator recommended. As of 01/2023 has not had titration study. Bipolar disorder Nocturnal polyuria Fibromyalgia syndrome Congestive heart failure Echo 06/2021: LV systolic function normal with EF of 55 to 60%, mild pulmonary hypertension with RVSP 35-40mmHg Osteoarthritis Hypothyroidism [facility] endocrinology--Dr Meliza Jain Surgical History (Updated 11/06/24 @ 13:01 by Genet Medina APN, LANNY) Hx of oral surgery (~11/01/24) H/O laparoscopy (~2010) treatment of ovarian cysts; performed in [place] History of colonoscopy with polypectomy 2018 History of tonsillectomy and adenoidectomy History of placement of ear tubes History of cholecystectomy 2017-lap History of dental surgery Family History Grandmother Breast cancer Maternal--dx age unknown Diabetes Maternal Hypertension Maternal Mother Breast cancer dx age 40's ; unknown if hormone receptive Thyroid disease Grandfather No problems noted. Sister Thyroid disease Denies family history of Colon cancer Ovarian cancer Hypercholesteremia Uterine cancer Stroke Social History Smoking and tobacco/nicotine status: current every day tobacco/nicotine user (vape use) Physical Exam 2 Narrative: EXAM NARRATIVE: General: Alert, no acute distress. Skin: Warm, dry. Head: Normocephalic, atraumatic. Neck: Supple, trachea midline. Eye: Extraocular movements are intact. Ears, nose, mouth and throat: mucosa moist. Cardiovascular: Regular, Normal peripheral perfusion. Respiratory: Lungs are clear to auscultation, respirations are non-labored, breath sounds are equal, Symmetrical chest wall expansion. Gastrointestinal: Soft, Nontender, Non distended Musculoskeletal: Normal ROM, no deformity. Neurological: Alert and oriented, No focal neurological deficit observed. Psychiatric: Cooperative, odd affect, somewhat anxious Course 2 Vital Signs: Vital signs: Vital Signs Temperature 98.4 F 11/26/24 14:59 Pulse Rate 93 11/26/24 15:49 Blood Pressure 120/69 11/26/24 15:49 Pulse Oximetry 96 11/26/24 15:49 Oxygen Delivery Me thod Room Air 11/26/24 15:49 Oxygen Flow Rate 4 11/26/24 14:59 MDM - SOB/Dyspnea Medical Decision Making Differential diagnosis for patient with shortness of breath includes but is not limited to and based on the above HPI, review of systems and physical exam: Pneumonia. Bronchitis. Asthma or COPD with acute exacerbation. Acute coronary syndrome / [place]. Pulmonary embolism. Anxiety. Congestive heart failure. Viral infections including influenza and Covid-19. Atrial fibrillation. Anxiety. Pleural effusion. Pneumothorax. Orders placed to evaluate differential diagnosis based on the above differential, HPI and physical exam Chest x-ray: No acute process. No infiltrate. No pneumothorax. This was reviewed and interpreted by myself the emergency room physician. I also reviewed the radiology report. EKG: Time 1500. Rate 59. Sinus bradycardia. No ST-T changes, no ectopy, normal NE & QRS intervals, This was reviewed and interpreted by myself the ER physician at 1505 Lab Review: Laboratory results were reviewed and interpreted by myself the emergency room physician. No leukocytosis. No anemia. No renal failure. proBNP is negative. Flu COVID and RSV are negative. Troponin is negative. I reviewed the patient's medical record. Reexamination: Patient is continue to have no oxygen requirements. No increased work of breathing. No altered mental status. No focal motor deficits. She has continued to be quite a bit anxious. Assessment and plan: Dyspnea Anxiety - Discharged home - Discussed plan with patient. Answered any questions. - Evaluation and treatment of this problem were appropriate in the emergency setting. Lab Data 11/26/24 15:15 11/26/24 15:15 Labs/Radiology: Radiology Impressions Chest X-Ray 11/26/24 15:04 IMPRESSION: 1. No acute cardiopulmonary finding. Laboratory Results WBC 9.77 10^3/uL (3.29-11.43) 11/26/24 15:15 RBC 4.26 10^6/uL (3.85-5.65) 11/26/24 15:15 Hgb 13.40 g/dL (11.27-16.99) 11/26/24 15:15 Hct 42.9 % (36-47) 11/26/24 15:15 MCV 100.7 fl (85-98) H 11/26/24 15:15 MCH 31.5 pg (27-33) 11/26/24 15:15 MCHC 31.2 g/dL (30-55) 11/26/24 15:15 RDW 12.7 % (12.1-15.1) 11/26/24 15:15 Plt Count 224 10^3/cmm (157-399) 11/26/24 15:15 MPV 11.1 fL (7.4-10.4) H 11/26/24 15:15 Neut % (Auto) 68.3 % 11/26/24 15:15 Lymph % (Auto) 24.0 % 11/26/24 15:15 Elbert % (Auto) 5.8 % 11/26/24 15:15 Eos % (Auto) 1.0 % 11/26/24 15:15 Baso % (Auto) 0.6 % 11/26/24 15:15 Neut # (Auto) 6.67 10^3/uL (1.8-7.7) 11/26/24 15:15 Lymph # (Auto) 2.3 10^3/uL (0.8-4.8) 11/26/24 15:15 Elbert # (Auto) 0.6 10^3/uL (0.2-0.9) 11/26/24 15:15 Eos # (Auto) 0.1 10^3/uL (0.0-0.8) 11/26/24 15:15 Baso # (Auto) 0.1 10^3/uL (0.0-0.1) 11/26/24 15:15 Nucleated RBC % (auto) 0 % 11/26/24 15:15 Nucleated RBCs # 0.0 /100WBC 11/26/24 15:15 Sodium 140 mmol/L (136-145) 11/26/24 15:15 Potassium 4.4 mmol/L (3.5-5.1) 11/26/24 15:15 Chloride 105 mmol/L (98-107) 11/26/24 15:15 Carbon Dioxide 24 mmol/L (22-29) 11/26/24 15:15 Anion Gap 15.4 (5-19) 11/26/24 15:15 BUN 18 mg/dL (6-20) 11/26/24 15:15 Creatinine 1.0 mg/dL (0.5-0.9) H 11/26/24 15:15 GFR Calculation 61.7 mL/min (90-130) L 11/26/24 15:15 Glucose 97 mg/dL (65-115) 11/26/24 15:15 Calculated Osmolality 292 mOsm/kg (285-295) 11/26/24 15:15 Lactic Acid 0.8 mmol/L (0.5-2.2) 11/26/24 15:15 Calcium 9.3 mg/dL (8.5-10.5) 11/26/24 15:15 Total Bilirubin 0.2 mg/dL (0.15-1.2) 11/26/24 15:15 AST 12 U/L (0-32) 11/26/24 15:15 ALT 9 U/L (0-33) 11/26/24 15:15 Alkaline Phosphatase 197 U/L (35-105) H 11/26/24 15:15 Troponin T Baseline 8 ng/L (0-10) 11/26/24 15:15 NT-Pro-B Natriuret Pep 287 pg/mL (0-125) H 11/26/24 15:15 Total Protein 6.8 g/dL (6.6-8.7) 11/26/24 15:15 Albumin 4.1 g/dL (3.5-5.2) 11/26/24 15:15 Globulin 2.7 g/dL (1.3-4.6) 11/26/24 15:15 Influenza A (PCR) Negative (Negative) 11/26/24 15:18 Influenza Type B (PCR) Negative (Negative) 11/26/24 15:18 RSV (PCR) Negative (Negative) 11/26/24 15:18 SARS-CoV-2 (PCR) Negative (Negative) 11/26/24 15:18 All radiology interpretation(s) finalized by discharge Discharge Plan Discharge Patient Disposition: Home Clinical Impression: Dyspnea, Anxiety Condition: Stable Prescriptions: No Action norethindrone (contraceptive) 0.35 mg tablet 0.35 mg PO DAILY Qty: 84 3RF (DME) Bedside Commode See Rx Instructions .Route .MEDSUPPLY Qty: 1 0RF Rx Instructions: due to patient needing to remain NWB besides heel transferring to utilize facility. (DME) Antislip Socks See Rx Instructions .Route .MEDSUPPLY Qty: 1 0RF Rx Instructions: As directed (DME) addison lift See Rx Instructions .Route .MEDSUPPLY Qty: 1 0RF Rx Instructions: As directed pantoprazole [Protonix] 40 mg tablet,delayed release (DR/EC) 40 mg PO DAILY 30 Days Qty: 30 12RF losartan 25 mg tablet See Rx Instructions .ROUTE .COMPLEX Qty: 90 0RF Dose Instruction: TAKE 1 TABLET BY MOUTH EVERY DAY Rx Instructions: TAKE 1 TABLET BY MOUTH EVERY DAY oxcarbazepine 300 mg Tablet 300 mg PO TID cetirizine 10 mg Tablet 10 mg PO DAILY@08 fluticasone propionate 50 mcg/actuation [place],Suspension 1 spray INTRANASAL DAILY@14 bupropion HCl 300 mg Tablet Extended Release 24 Hr 300 mg PO DAILY@08 potassium chloride 20 mEq Tablet Extended Release 20 meq PO DAILY@08 ergocalciferol (vitamin D2) [Vitamin D2] 1,250 mcg (50,000 unit) capsule 50,000 unit PO Q7D Rx Instructions: on TUESDAY Eliquis 5 mg tablet 5 mg PO BID@08,20 furosemide 40 mg tablet 40 mg PO DAILY@08 epinephrine [EpiPen 2-Norm] 0.3 mg/0.3 mL Auto-Injector 0.3 mg IM Q4H PRN (Reason: Allergic Reaction) calcium carbonate-vitamin D3 [Calcium 600 + D(3)] 600 mg-10 mcg (400 unit) Tablet 1 tab PO DAILY Probiotic 3 billion cell Capsule 3,000 mmu cells PO DAILY Rx Instructions: administer with a meal hydroxyzine HCl 25 mg Tablet 25 mg PO BEDTIME Rx Instructions: AND PRN TID NEEDED cyanocobalamin (vitamin B-12) 1,000 mcg tablet 1,000 mcg PO DAILY Qty: 30 0RF levothyroxine 175 mcg capsule 175 mcg PO DAILY Qty: 30 0RF acetazolamide 250 mg Tablet 250 mg PO EVERY OTHER DAY Qty: 14 0RF gabapentin 600 mg Tablet 300 mg PO TID@08,14,20 Qty: 30 0RF sertraline 100 mg tablet 300 mg PO DAILY@0800 (DME) CPAP Device albuterol sulfate 90 mcg/actuation HFA aerosol inhaler 2 inh inhalation Q4H PRN (Reason: shortness of breath or wheezing) Qty: 6.7 1RF furosemide 20 mg tablet 20 mg PO .@NOON Rx Instructions: 20 mg orally at noon ciclopirox 0.77 % cream 1 applic topical BID PRN (Reason: Rash) Rx Instructions: Apply to red areas twice a day, as needed. aripiprazole 10 mg tablet 10 mg PO DAILY Discharge Orders: Discharge ED (Routine); Ordered 11/26/24 Ordered By: Susan Lee Referrals: Fern Aguilar FNP [Primary Care Provider, Unknown] Discharge Activity: Increase activity as tolerated Patient Instructions: Dyspnea (ED), Opioid Safety, Pain Management, Patient Portal & Malgorzata Instructions Activity Restrictions/Additional Instructions: Thank you for choosing [facility] for your healthcare needs today. You have been screened and evaluated and felt safe for discharge. Health conditions do change or evolve sometimes and as such it is important that you follow up with your Primary Doctor to be re checked, 3-5 days is a general good time frame for follow up. You are always welcome to return to the ED for re assessment if your symptoms are worsening or you have new concerns Print Language: Indonesian Coding Level of Care Code ED Demolition Expert for Luis Carlos Lee
--- NOTE | 2024-11-26 15:04 | XR_ITS ---
WS: [id number] Exam: XR chest 1V portable [id number] Date/Time of Exam: 11/26/2024 3:05 PM Reason For Exam: Shortness of breath Comparison 03/11/2024. The lungs are fully expanded and clear. No pleural effusion. Normal cardiomediastinal silhouette. Bony structures are unremarkable. XR/XR chest 1V portable [id number] IMPRESSION: 1. No acute cardiopulmonary finding.
--- NOTE | 2024-11-26 15:04 | ECG_ITS ---
[employer] V[employer] Test Date: 2024-11-26 Pat Name: Deann Vega Department: Room: Gender: Female Associate Spa Director: : 1985 Requested By: Susan Riley Order Number: [id number] Fitzgerald MD: Paradise Dumont M.D. Measurements Intervals Victor Rate: 59 P: 30 ME: 175 QRS: 43 QRSD: 122 T: -3 QT: 397 QTc: 396 Interpretive Statements SINUS BRADYCARDIA POSSIBLE RIGHT VENTRICULAR CONDUCTION DELAY [RSR (QR) IN V1/V2] Compared to ECG 03/11/2024 17:18:16 Sinus rhythm no longer present Electronically Signed On 11-27-2024 08:07:03 CDT by Paradise Dumont M.D. [email or web address]
--- OUTSIDE RECORDS SUMMARY | 2024-11-26 15:05 | XMS_ITS | Encounter Summary ---
[facility] Organization [facility] Address [address] [place] [address] Care Team Providers Care Marketing And Development Coordinator Name Role Phone Fern Aguilar CENTRAL SUPPLY CLERK Primary Care Provider [phone] Encounter Details Date Type Department Care Team (Late st Contact Info) Description 09/28/2004 Outpatient Historical [facility] Hoang Martinez JOINT PAIN-PELVIS (Primary Dx) Social History Tobacco Use Types Packs/Day Years Used Date Smoking Tobacco: Never Assessed Comments Unknown Sex and Gender Information Value Date Recorded Sex Assigned at Not on file Legal Sex Female 10:00 PM RECEP Gender Identity Not on file Sexual Orientation Not on file documented as of this encounter Plan of Treatment Upcoming Encounters Date Type Department Care Team (Late st Contact Info) Description 12/25/2024 10:30 AM CDT Office Visit [facility] Urology [address] [place] [phone] Kathy Jackson FNP [address] [facility] [address] [place] [phone] 02/08/2025 9:30 AM RECEP Office Visit [facility] [address] [place] [phone] Leana Pederson PA [address] [place] [phone] 02/20/2025 8:30 AM RECEP Office Visit [facility] OBGYN-[address] [place] [address] Triny Pruitt DO [address] [place] [address] [address] [place] [address] documented as of this encounter Visit Diagnoses Diagnosis Pain in joint, pelvic region and thigh- Primary documented in this encounter Care Teams Marketing And Development Coordinator Relationship Specialty Start Date End Date Fern Aguilar FNP [address] [place] [address] PCP - General Nurse Practitioner Family 05/08/20 documented as of this encounter
--- OUTSIDE RECORDS SUMMARY | 2024-11-26 15:05 | XMS_ITS | Encounter Summary ---
Author Organization [facility] Address [address] [place] [address] Care Team Providers Care Handyperson Name Role Phone Fern Aguilar ANKLE PATCH MOLDER Primary Care Provider [phone] Encounter Details Date Type Department Care Team (Late st Contact Info) Description 09/30/2004 Emergency [facility] EMERGENCY ROOM WASH Stitch, Marilee TOXIC EFFECT VENOM (Primary Dx) Social History Tobacco Use Types Packs/Day Years Used Date Smoking Tobacco: Never Assessed Comments Unknown Sex and Gender Information Value Date Recorded Sex Assigned at Not on file Legal Sex Female 10:00 PM CASINO FLOOR RUNNER Gender Identity Not on file Sexual Orientation Not on file documented as of this encounter Plan of Treatment Upcoming Encounters Date Type Department Care Team (Late st Contact Info) Description 12/25/2024 10:30 AM CDT Office Visit [facility] Urology [address] [place] [phone] Kathy Jackson FNP [address] [facility] [address] [place] [phone] 02/08/2025 9:30 AM CASINO FLOOR RUNNER Office Visit [facility] [address] [place] [address] Leana Pederson PA [address] [place] [address] 02/20/2025 8:30 AM CASINO FLOOR RUNNER Office Visit [facility] OBGYN-[address] [place] [address] Triny Pruitt DO [address] [place] [address] documented as of this encounter Visit Diagnoses Diagnosis Toxic effect of venom(989.5)- Primary Toxic effect of venom documented in this encounter Care Teams Handyperson Relationship Specialty Start Date End Date Fern Aguilar FNP [address] [place] [phone] PCP - General Nurse Practitioner Family 05/08/20 documented as of this encounter
--- OUTSIDE RECORDS SUMMARY | 2024-11-26 15:05 | XMS_ITS | Encounter Summary ---
Author Organization [facility] Address [address] [place] [address] Phone Care Team Providers Care Product Manufacturing Professional Name Role Phone Ashok Boyd MD Primary Care Provider [phone] Encounter Details Date Type Department Care Team (Late st Contact Info) Description 11/16/2022 Orders Only [facility] [employer] [address] [place] [address] Chronic kidney disease stage 3A (HCC) Social History Tobacco Use Types Packs/Day Years Used Date Smoking Tobacco: Never Assessed Comments Unknown Sex and Gender Information Value Date Recorded Sex Assigned at Not on file Legal Sex Female 1:20 PM EDT Gender Identity Not on file Sexual Orientation Not on file documented as of this encounter Plan of Treatment Not on file documented as of this encounter Visit Diagnoses Diagnosis Chronic kidney disease stage 3A (HCC) documented in this encounter Care Teams Product Manufacturing Professional Relationship Specialty Start Date End Date Ashok Boyd MD [address] [place] [address] PCP - General Family Medicine 08/19/21 documented as of this encounter
--- OUTSIDE RECORDS SUMMARY | 2024-11-26 15:05 | XMS_ITS | Clinical Summary ---
Author Organization [facility] Address [address] [place] [phone] Phone Care Team Providers Care Bus Trolley And Taxi Instructor Name Role Phone Fern Aguilar RANDY Primary Care Provider [phone] Allergies Active Allergy Reactions Criticality Noted Date Comments Acetaminophen Other (See Comments),Swelling Low 07/17/2015 Azithromycin Other (See Comments) 07/29/2016 Nsaids (Non-Steroidal Anti-Inflammatory Drug) Nausea and Vomiting Low 11/01/2024 Tramadol Rash Low 11/01/2024 hives Venom-Honey Bee Other (See Comments) 12/28/2012 Medications cetirizine (ZYRTEC) 10 mg tablet Take 10 mg by mouth daily. Active ziprasidone (GEODON) 80 mg Capsule Take 80 mg by mouth daily mother repairer. Active TOPIRAMATE (TOPAMAX ORAL) Take by mouth 2 times daily. Active sertraline 100 mg tablet (ZOLOFT) Take 200 mg by mouth daily. Active OTHER BCP . Active EPINEPHrine 0.3 mg/0.3 mL injection, auto-injector inject (0.3MG) by INTRAMUSCULAR route onceas needed for anaphylaxis 07/15/19 12 Active ascorbic acid (vitamin C) 500 mg tablet take 1 tablet by Oral route every day 03/03/20 12 Active triamcinolone acetonide (KENALOG) 0.1 % Cream APPLY TO AFFECTED AREA(S) TWICE DAILY 80 Gram 10 06/15/19 17 Active nystatin (MYCOSTATIN) 100,000 unit/gram Cream APPLY TO AFFECTED AREA(S) TWICE DAILY *USE WITH TRIAMCINOLONE CREAM* 30 Gram 10 07/17/19 17 Active hydrOXYzine HCl (ATARAX) 50 mg tablet Take 50 mg by mouth 3 times daily as needed for Itching. Active polyethylene glycol (MIRALAX) 17 gram Powder in Packet Take 17 Grams by mouth daily. Active nystatin, bulk, 15 billion unit Powder 1 Puff by [facility]Non-Drug; Combo Route) route daily Powder affected to area daily. 1 Each 2 07/30/19 17 Active ARIPiprazole (ABILIFY) 10 mg tablet Take 10 mg by mouth daily. Active buPROPion HCL (WELLBUTRIN XL) 300 mg Extended Release 24 hour tablet Take 300 mg by mouth daily in the morning. 08/07/19 25 Active calcium as CARBONATE-phillip min D3 (CALTRATE 600+D) 600 mg-5 mcg (200 unit) Tablet Take 1 Tablet by mouth daily. 10/31/19 24 Active acetaZOLAMIDE (DIAMOX) 250 mg tablet Take 250 mg by mouth daily in the morning. 01/02/20 24 Active sodium chloride (OCEAN) 0.65 % Aerosol, [place] Administer in each nostril PRN for Allergies. Active dicyclomine (BENTYL) 10 mg capsule Take 10 mg by mouth daily. 07/25/19 25 Active apixaban (Eliquis) 5 mg tablet Take 5 mg by mouth 2 times daily. 11/27/19 22 Active fluticasone propionate (FLONASE) 50 mcg/spray [place], Suspension nasal inhaler Administer 2 Sprays in each nostril daily. 12/13/19 24 Active furosemide (LASIX) 40 mg tablet Take 40 mg by mouth daily in the morning. 07/25/19 25 Active gabapentin (NEURONTIN) 600 mg tablet Take 600 mg by mouth 3 times daily. 07/29/19 25 Active loperamide (IMODIUM) 2 mg capsule Take 2 mg by mouth 3 times daily as needed. 07/25/19 25 Active losartan (COZAAR) 25 mg tablet Take 25 mg by mouth daily in the morning. 07/25/19 25 Active levothyroxine 175 mcg tablet Take 175 mcg by mouth daily in the morning. 07/25/19 25 Active meloxicam (MOBIC) 15 mg tablet Take 15 mg by mouth daily. 10/31/19 24 Active norethindrone, Contraceptive, 0.35 mg Tablet Take 1 Tablet by mouth daily. Active OXcarbazepine (TRILEPTAL) 300 mg tablet Take 300 mg by mouth 3 times daily. 08/07/19 Active oxyBUTYnin (DITROPAN XL) 5 mg Extended Release 24 hour tablet Take 5 mg by mouth daily at bedtime. 07/25/19 25 Active pantoprazole (PROTONIX) 40 mg Tablet, Delayed Release (E.C.) Take 40 mg by mouth daily. 01/02/20 24 Active potassium CHLORIDE (K-TAB) 20 mEq Extended Release tablet Take 20 mEq by mouth daily. Active promethazine (PHENERGAN) 25 mg Suppository Insert 25 mg by rectum every 6 hours as needed. Active emollient (Vanicream) Cream Apply to affected area 4 times daily as needed. Active vit B complex no.12/niacin,B 3, (VITAMIN B COMPLEX NO.12-NIACIN ORAL) Take by mouth. Activ e cyanocobalamin 1,000 mcg Tablet Take 1,000 mcg by mouth daily. 02/27/20 24 Active diphenhydrAMIN E (Banophen) 25 mg tablet Take 25 mg by mouth every 6 hours as needed. Active ergocalciferol (VITAMIN D2) 50,000 unit capsule Take 50,000 Units by mouth every 7 days. 11/27/19 Active Tetrahydrozoli ne-PEG 0.05-1 % solution Administer 2 Drops in both eyes 3 times daily. 05/30/19 Active polyethylene glycol 3350 (Miralax) 17 gram/dose Powder Take 17 Grams by mouth 1 time daily as needed. 07/29/19 25 Active Methyl Salicylate-Men thol 29-7.6 % Ointment apply TO SKIN EVERY DAY NEEDED FOR muscle pain Active mupirocin (BACTROBAN) 2 % Ointment Apply 1 Application to affected area. Active ondansetron (ZOFRAN ODT) 8 mg Tablet, Rapid Dissolve every 6 hours as needed. 07/29/19 Active codeine sulfate 30 mg tablet Take 1 Tablet by mouth every 6 (six) hours as needed for pain. Max Daily Amount: 120 mg 15 Tablet 11/02/19 25 Active naloxone (Narcan) 4 mg/spray [place], Non-Aerosol Push plunger to administer. Call 911. May repeat dose, every 2-3 minutes, if the person does not wake up or breathing is not improved. 2 Each 11/02/19 25 Active mometasone (NASONEX) 50 mcg/actuation [place], Non-Aerosol daily. 2024 Discontinued levothyroxine 100 mcg tablet Take 1 Tablet (100 mcg) by mouth daily in the morning. 90 Tablet 3 06/05/19 23 2024 Discontinued levothyroxine 150 mcg tablet Take 1 Tablet (150 mcg) by mouth daily in the morning. 08/22/19 25 2024 Discontinued acetaZOLAMIDE (DIAMOX) 250 mg tablet Take 250 mg by mouth every other day. 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 Primary hypothyroidism 12/03/2020 Morbid obesity 12/03/2020 Diarrhea 12/03/2020 Renal failure, acute Personality disorder Eating disorder Bipolar 2 disorder Anxiety Encounters Date Type Department Care Team Description 11/21/2024 External Device Data [facility] ABSTRACTION Provider, Abstract 11/20/2024 External Device Data [facility] ABSTRACTION Provider, Abstract 11/08/[address] [address] Triny Pruitt DO Referral 11/06/2024 External Device Data [facility] ABSTRACTION Provider, Abstract 11/01/2024 2:42 PM CDT Anesthesia Event [facility] Operating [facility] [address] [place] [address] Hakan Davila MD Koch, Brooke (Student), RN 11/01/2024 11:01 AM CDT - 11/01/2024 5:52 PM CDT Hospital Encounter [facility] Pre-Op [address] [place] [address] Bobo Zapata DDS Discharge Disposition: Home or Self Care 11/01/2024 8:58 AM CDT - 11/01/2024 10:36 AM CDT Surgery [facility] [address] [place] [address] Bobo Zapata DDS DENTAL REHABILITATION With Extractions 10/17/2024 External Device Data [facility] ABSTRACTION Provider, Abstract 10/16/2024 External Device Data [facility] ABSTRACTION Provider, Abstract 09/25/2024 External Device Data [facility] ABSTRACTION Provider, [...] = 0.6 oz pur e alcohol) social Feeling Safe Answer Date Recorded Are you in a relationship wi th someone who hurts you emotionally and/or physically? No 11/01/2024 Comments No Sex and Gender Information Value Date Recorded Sex Assigned at Not on file Legal Sex Female 10:00 PM INSPECTOR GOVERNMENT PROPERTY Gender Identity Not on file Sexual Orientation Not on file Last Filed Vital Signs Vital Sign Reading Time Taken Comments Blood Pressure 143/85 11/01/2024 5:22 PM CDT Pulse 76 11/01/2024 5:22 PM CDT Temperature 36.3 C (97.3 F) 11/01/2024 4:52 PM CDT Respiratory Rate 20 11/01/2024 5:22 PM CDT Oxygen Saturation 93% 11/01/2024 5:22 PM CDT Inhaled Oxygen Concentration - - Weight 178.8 kg (394 lb 3.2 oz) 025 11:56 AM CDT Height 165.1 cm (5' 5 ) 11/01/2024 11:5 6 AM CDT Body Mass Index 65.6 11/01/2024 11:56 AM CDT Plan of Treatment Upcoming Encounters Date Type Department Care Team (Late st Contact Info) Description 12/25/2024 10:30 AM CDT Office Visit [facility] Urology [address] [address] Kathy Jackson FNP [address] [place] [address] [address] [place] [address] 02/08/2025 9:30 AM INSPECTOR GOVERNMENT PROPERTY Office Visit [facility] [address] [place] [address] Leana Pederson PA [address] [place] [address] 02/20/2025 8:30 AM INSPECTOR GOVERNMENT PROPERTY [facility] [address] [facility] [address] [place] [address] Triny Pruitt DO [address] [facility] [address] [place] [address] Health Maintenance Due Date Last Done Comments Pre-Diabetes and Diabetes Screening 08/31/2008 08/31/2005 HPV VACCINES (1 - 3-dose SCD M series) 02/24/2012 HEPATITIS B VACCINES (3 of 3 - 3-dose series) 11/10/2016 09/15/2016, 10/25/2003, 07/29/2000 PAP SMEAR 04/26/2020 04/26/2017 CERVICAL CANCER SCREENING 04/26/2022 HPV/Cotest (21-29) 04/26/2022 04/26/2017 HPV/Cotest (30-65) 04/26/2022 04/26/2017 COVID-19 Vaccine (3 - 2023-2 5 season) 2023 12/10/2020, 11/12/2020 INFLUENZA VACCINE (#1) 2024 9, 02/07/2012, 01/11/2012, Additional history exists DTAP/TDAP/TD VACCINES (2 - T d or Tdap) 08/30/2026 08/30/2016 Procedures Procedure Name Priority Date/Time Associated Diagnosis Comments TELEMETRY REPORT 11/07/2024 10:5 4 AM CDT IN ANES INSERT ENDOTRACHEAL AIRWAY Routine 11/01/2024 3:00 PM CDT EKG 12-LEAD Stat 11/01/2024 1:23 PM CDT BASIC METABOLIC PANEL Stat 11/01/2024 12:20 PM CDT POC , URINE Routine 11/01/2024 12:12 PM CDT IN PERIODIC ORAL EVALUATION 11/01/2024 8:58 AM CDT DENTAL CARIES, AUTISM CERV/VAG CYTO SCREEN PAP W/HPV Routine 04/26/2017 4:13 PM INSPECTOR GOVERNMENT PROPERTY Cervical smear, as part of routine gynecological examination HEMOGLOBIN A1C Routine 08/31/2005 10:10 AM CDT from Last 3 Months or Most Recently Relevant to Health Maintenance Results * TELEMETRY REPORT (11/07/2024 10:54 AM CDT) us Provider Scanning ECG ORDERABLES Final Result * IN ANES INSERT ENDOTRACHEAL AIRWAY (11/01/2024 3:00 PM CDT) Narrative Cyndee Najera (Student), RN - 11/01/2024 3:00 PM CDT Cyndee Najera (Student), RN 11/01/2024 3:08 PM Airway Date/Time: 11/01/2024 3:00 PM Location: OR Plan: routine intubation Patient Identity Confirmed by: Verbally with patient and armband Staffing Performed: Student NA/AA Authorized by: Hakan Davila MD Performed by: Cyndee Najera (Student), RN Indications and Patient Condition: Indications for Airway Management: Anesthesia Sedation Level: general anesthesia Preoxygenated: yes Patient Position: Sniffing Mask Difficulty Assessment: 1 - vent by mask Plan to extubate at end of case: Yes Final Airway Details: Final Airway Type: Endotracheal airway ETT Cuffed: Yes Technique Used for Successful ETT Placement: Video laryngoscopy Blade Size: 3 Insertion Site: Left naris ETT Size (mm): 7.0 Video Laryngoscopy Devices: GlideScope Measured from: Nares ETT to Nares (cm): 28 Tube secured with: Tape Placement Verified by: auscultation, end tidal CO2 and chest rise Cormack-Lehane Classification: Grade I - full view of glottis Number of Attempts at Approach: 1 Additional Procedure Information: atraumatic and dentition unchanged us Hakan Davila MD PROCEDURE/MINOR SURGICAL ORDER KARUNA Final Result * EKG 12-LEAD (11/01/2024 1:23 PM CDT) 11/01/2024 1:23 PM CDT Narrative INTERFACE SYSTEM - 11/01/2024 4:40 [place] [address] Test Date: 2024-11-01 Pat Name: SHARAN GONZALES Department: 12 Room: PREOP PHAS PREOP PHAS Gender: Female Nurse Clinician: [id number] : 1985 Requested By: Order Number: [id number] Reading MD: Leila Feliciano Measurements Intervals [place] Rate: 75 P: 41 IN: 182 QRS: 34 QRSD: 120 T: -6 QT: 384 QTc: 428 Interpretive Statements Normal sinus rhythm Nonspecific intraventricular conduction delay Borderline ECG Electronically Signed On 11-01-2024 16:40:26 CDT by Leila Feliciano Procedure Note Leila Feliciano MD - 11/01/2024 [place] [address] Test Date: 2024-11-01 Pat Name: SHARAN GONZALES Department: 12 Room: PREOP PHAS PREOP PHAS Gender: Female Nurse Clinician: [id number] : 1985 Requested By: Order Number: [id number] Reading MD: Leila Feliciano Measurements Intervals [place] Rate: 75 P: 41 IN: 182 QRS: 34 QRSD: 120 T: -6 QT: 384 QTc: 428 Interpretive Statements Normal sinus rhythm Nonspecific intraventricular conduction delay Borderline ECG Electronically Signed On 11-01-2024 16:40:26 CDT by Leila Feliciano us Tenisha Oshea MD ECG ORDERABLES Final Result INTERFACE SYSTEM Refer to clinic/hospital department * (ABNORMAL) BASIC METABOLIC PANEL (11/01/2024 12:20 PM CDT) SODIUM 138 136 - 145 mmol/L 11/01/2024 1:12 PM CDT [facility] POTASSIUM 3.9 3.5 - 5.1 mmol/L 11/01/2024 1:12 PM CDT [facility] CHLORIDE 107 98 - 107 mmol/L 11/01/2024 1:12 PM CDT [facility] CO2 21(L) 22 - 29 mmol/L 11/01/2024 1:12 PM CDT [facility] CALCIUM 8.8 8.6 - 10.0 mg/dL 11/01/2024 1:12 PM CDT [facility] BUN 23(H) 6 - 20 mg/dL 11/01/2024 1:12 PM T [facility] CREATININE 1.06(H) 0.51 - 0.95 mg/dL 11/01/2024 1:12 PM CDT [facility] GLUCOSE 94 74 - 99 mg/dL 11/01/2024 1:12 PM T [facility] GFR >60 >=60 mL/min/1. 73 sq meter 11/01/2024 1:12 PM T [facility] Comment:eGFR calculated with 2020 CKD-EPI equation. Vegetarian diet, extremely high or low muscle mass, and may affect results. Cystatin C with Glomerular Filtration Rate is a suitable alternative for these patients. ANION GAP 10 9 - 20 mmol/L 11/01/2024 1:12 PM T [facility] Blood Venipuncture / Unknown 11/01/2024 12:20 PM CDT 11/01/2024 12:38 PM CDT us Bobo Zapata DDS CHEMISTRY ORDERABLES Final Result [facility] CLIA # [id number] [address] [address] [place] [address] * POC , URINE (11/01/2024 12:12 PM CDT) Pathologist [facility] HCG QUAL URINE Negative Negative 11/01/2024 12:12 PM CDT [facility] Urine 11/01/2024 12:1 2 PM CDT 11/01/2024 12:02 PM CDT Narrative [facility] - 11/01/2024 12:12 PM CDT Positive : Result is greater than or equal to 25 mIU/mL Negative: Result is less than 25 mIU/mL Invalid: Result is borderline or indeterminate,send to lab for serum test methodology. us Bobo Zapata DDS POINT OF CARE TESTING [place] niko Result [facility] CLIA # [id number] [address] [place] [address] * CERV/VAG CYTOPATH, THIN PREP SPIRITUAL MINISTER AND HPV (04/26/2017 4:13 PM INSPECTOR GOVERNMENT PROPERTY) [facility] CLINICAL INFORMATION SEE COMMENT 05/03/2017 8:36 AM INSPECTOR GOVERNMENT PROPERTY [facility] Comment:Oral contraceptives LAST MENSTRUAL PERIOD SEE COMMENT 05/03/2017 8:36 AM INSPECTOR GOVERNMENT PROPERTY [facility] Comment:Information not prov ided PREV PAP: 04/04/11 05/03/2017 8:36 AM INSPECTOR GOVERNMENT PROPERTY [facility] PREV BX: SEE COMMENT 05/03/2017 8:36 AM INSPECTOR GOVERNMENT PROPERTY [facility] Comment:Information not prov ided SOURCE Endocervix 05/03/2017 8:36 AM INSPECTOR GOVERNMENT PROPERTY [facility] ADEQUACY: SEE COMMENT 05/03/2017 8:36 AM INSPECTOR GOVERNMENT PROPERTY [facility] Comment: Satisfactory for evaluation. Endocervical/transformation zone component present. Age and/or menstrual status not provided PAP INTERP SEE COMMENT 05/03/2017 8:36 AM INSPECTOR GOVERNMENT PROPERTY [facility] Comment:Negative for intraep ithelial lesion or malignancy. COMMENT SEE COMMENT 05/03/2017 8:36 AM INSPECTOR GOVERNMENT PROPERTY [facility] Comment: This Pap test has been evaluated with computer assisted technology. WEB CONTENT SPECIALIST: SEE COMMENT 2017 8:36 AM [facility] Comment: RAJAT YEE(ASCP) CT screening location: [place] [address] [place] [address] HPV E6/E7 Not Detected Not Detected 05/03/2017 8:36 AM [facility] REFERENCE [facility] Comment: This test was performed using the APTIMA HPV Assay ([employer] This assay detects E6/E7 viral messenger RNA (mRNA) from 14 high-risk HPV types (16,18,31,33,35,39,45,51,52,56,58,59,66,68). Genital SWAB OF ENDOCERVIX / Unknown 04/26/2017 4:13 PM INSPECTOR GOVERNMENT PROPERTY 04/26/2017 7:40 PM INSPECTOR GOVERNMENT PROPERTY Narrative [facility] REFERENCE LAB [facility] - 05/03/2017 8:36 AM INSPECTOR GOVERNMENT PROPERTY Performing Organization Information: Site ID: Name: [facility] Address: [facility] [place] [address] Director: Joshua Hill MD us Gracie Guidry MD PATHOLOGY/CYTOLOGY ORDERA BLES Final Result Performing Organization Address [facility] Co de Phone Number [facility] * HEMOGLOBIN A1C (08/31/2005 10:10 AM CDT) HEMOGLOBIN A1C 5.3 4.7 - 6.4 % of Hgb INTERFACE SYSTEM GLUCOSE, MEAN BLOOD 90 mg/dL INTERFACE SYSTEM 08/31/2005 10:1 0 AM CDT us Brandan Churchill MD CHEMISTRY ORDERABLES Final Re sult Performing Organization Address City/[facility] Co de Phone Number INTERFACE SYSTEM Refer to clinic/hospital department from Last 3 Months or Most Recently Relevant to Health Maintenance Insurance [place] [facility] * Guarantor: DONNA GONZALES Account Type Relation to Patient Date of Phone Billing Address Personal/Family Mother 1963 [id number] [place] [address] [place] Care Teams Bus Trolley And Taxi Instructor Relationship Specialty Start Date End Date Fern Aguilar FNP [address] [place] [address] PCP - General Nurse Practitioner Family 05/08/20
--- OUTSIDE RECORDS SUMMARY | 2024-11-26 15:05 | XMS_ITS | Clinical Summary ---
Author Organization [facility] Address [address] [place] [address] Phone Care Team Providers Care Acidizer Water Well Name Role Phone Fern Aguilar FINDING FASTENER Primary Care Provider [phone] Social History Tobacco Use Types Packs/Day Years Used Date Smoking Tobacco: Never Assessed Comments Unknown Sex and Gender Information Value Date Recorded Sex Assigned at Not on file Legal Sex Female 9:56 AM CARE TRANSITION MGR Gender Identity Not on file Sexual Orientation Not on file Plan of Treatment Health Maintenance Due Date Last Done Comments HEPATITIS B VACCINES (1 of 3 - 19+ 3-dose series) 02/24/2004 HPV/Cotest (21-29) 2006 HPV VACCINES (1 - 3-dose SCD M series) 02/24/2012 CERVICAL CANCER SCREENING 2015 HPV/Cotest (30-65) 2015 PAP SMEAR 2015 INFLUENZA VACCINE (#1) 2024 9, 02/07/2012, 01/16/2009 DTAP/TDAP/TD VACCINES (2 - T d or Tdap) 08/30/2026 08/30/2016 Insurance [place]ICA[place] Care Teams Acidizer Water Well Relationship Specialty Start Date End Date Fern Aguilar FNP [address] [place] [address] PCP - General Nurse Practitioner Family 05/08/20
--- OUTSIDE RECORDS SUMMARY | 2024-11-26 15:05 | XMS_ITS | Encounter Summary ---
Author Organization [facility] Address [address] [place] [address] Care Team Providers Care Typewriter Assembler Name Role Phone Fern Aguilar MINING TEACHER Primary Care Provider [phone] Encounter Details Date Type Department Care Team (Late st Contact Info) Description 07/24/2004 Outpatient Historical [facility] [address] [place] [address] Brandan Caldera MD [address] [facility] [address] [place] [address] Social History Tobacco Use Types Packs/Day Years Used Date Smoking Tobacco: Never Assessed Comments Unknown Sex and Gender Information Value Date Recorded Sex Assigned at Not on file Legal Sex Female 10:00 PM LEGAL SERVICES MANAGER Gender Identity Not on file Sexual Orientation Not on file documented as of this encounter Plan of Treatment Upcoming Encounters Date Type Department Care Team (Late st Contact Info) Description 12/25/2024 10:30 AM CDT Office Visit [facility] [address] [place] [address] Kathy Jackson FNP [address] [facility] [address] [place] [address] 02/08/2025 9:30 AM LEGAL SERVICES MANAGER Office Visit [facility] [address] [place] [address] Leana Pederson PA [address] [place] [address] 02/20/2025 8:30 AM LEGAL SERVICES MANAGER Office Visit [facility] Kathia [address] [facility] [address] [place] [address] Triny Pruitt DO [address] [facility] [address] [place] [address] documented as of this encounter Visit Diagnoses Not on filedocumented in this encounter Care Teams Typewriter Assembler Relationship Specialty Start Date End Date Fern Aguilar FNP [address] [place] [address] PCP - General Nurse Practitioner Family 05/08/20 documented as of this encounter
--- OUTSIDE RECORDS SUMMARY | 2024-11-26 15:05 | XMS_ITS | Encounter Summary ---
Author Organization [employer] [facility] Address [address] [place] [address] Care Team Providers Care Voice Teacher Name Role Phone Fern Aguilar FNPS Primary Care Provider [phone] Encounter Details Date Type Department Care Team (Late st Contact Info) Description 07/24/2004 Outpatient Historical [facility] Hoang Martinez SYNCOPE AND COLLAPSE (Primary Dx) Social History Tobacco Use Types Packs/Day Years Used Date Smoking Tobacco: Never Assessed Comments Unknown Sex and Gender Information Value Date Recorded Sex Assigned at Not on file Legal Sex Female 10:00 PM PLATER HOT DIP Gender Identity Not on file Sexual Orientation Not on file documented as of this encounter Plan of Treatment Upcoming Encounters Date Type Department Care Team (Late st Contact Info) Description 12/25/2024 10:30 AM CDT Office Visit [facility] Urology [address] [place] [address] Kathy Jackson FNP [address] [place] [address] 02/08/2025 9:30 AM PLATER HOT DIP Office Visit [facility] [address] [place] [address] Leana Pederson PA [address] [place] [address] 02/20/2025 8:30 AM PLATER HOT DIP Office Visit [facility] [address] [facility] [address] [place] [address] Triny Pruitt DO [address] [place] [address] documented as of this encounter Visit Diagnoses Diagnosis Syncope and collapse- Primary documented in this encounter Care Teams Voice Teacher Relationship Specialty Start Date End Date Fern Aguilar FNP [address] [place] [address] PCP - General Nurse Practitioner Family 05/08/20 documented as of this encounter
--- OUTSIDE RECORDS SUMMARY | 2024-11-26 15:05 | XMS_ITS | Encounter Summary ---
Author Organization [facility] Address [address] [place] [address] Phone Care Team Providers Care Clinic Administrator Name Role Phone Ashok Boyd MD Primary Care Provider [phone] Encounter Details Date Type Department Care Team (Late st Contact Info) Description 08/19/2021 Orders Only [facility] [employer] [address] [place] [address] Decreased urine output Social History Tobacco Use Types Packs/Day Years Used Date Smoking Tobacco: Never Assessed Comments Unknown Sex and Gender Information Value Date Recorded Sex Assigned at Not on file Legal Sex Female 1:20 PM EDT Gender Identity Not on file Sexual Orientation Not on file documented as of this encounter Plan of Treatment Not on file documented as of this encounter Visit Diagnoses Diagnosis Decreased urine output documented in this encounter Care Teams Clinic Administrator Relationship Specialty Start Date End Date Ashok Boyd MD [address] [place] [address] PCP - General Family Medicine 08/19/21 documented as of this encounter
--- OUTSIDE RECORDS SUMMARY | 2024-11-26 15:05 | XMS_ITS | Encounter Summary ---
Author Organization [facility] Address [address] [place] [address] Care Team Providers Care Factory Worker Name Role Phone Fern Aguilar FORGING PRESS OPERATOR Primary Care Provider [phone] Encounter Details Date Type Department Care Team (Late st Contact Info) Description 05/30/2004 Emergency [facility] Kevin Camacho MD NO ADDRESS ON FILE NONPSYCHOTIC MENTAL DISORDER NOS (Primary Dx) Social History Tobacco Use Types Packs/Day Years Used Date Smoking Tobacco: Never Assessed Comments Unknown Sex and Gender Information Value Date Recorded Sex Assigned at Not on file Legal Sex Female 10:00 PM HIGH SCHOOL SOCIAL SCIENCE TEACHER Gender Identity Not on file Sexual Orientation Not on file documented as of this encounter Plan of Treatment Upcoming Encounters Date Type Department Care Team (Late st Contact Info) Description 12/25/2024 10:30 AM CDT Office Visit [facility] Urology [address] [place] [phone] [address] [place] [phone] 02/08/2025 9:30 AM HIGH SCHOOL SOCIAL SCIENCE TEACHER Office Visit [facility] [address] [place] [address] Leana Pederson PA [address] [place] [address] 02/20/2025 8:30 AM HIGH SCHOOL SOCIAL SCIENCE TEACHER Office Visit [facility] OBGYN[address] [place] [phone] Triny Pruitt DO [address] [facility] [address] [place] [address] documented as of this encounter Procedures Procedure Name Priority Date/Time Associated Diagnosis Comments CBC WITH DIFFERENTIAL Routine 05/30/2004 6:17 PM HIGH SCHOOL SOCIAL SCIENCE TEACHER CBC WITH DIFFERENTIAL Routine 05/30/2004 6:17 PM HIGH SCHOOL SOCIAL SCIENCE TEACHER LIPASE Routine 05/30/2004 6:17 PM HIGH SCHOOL SOCIAL SCIENCE TEACHER HEPATIC FUNCTION PANEL Routine 05/30/2004 6:17 PM HIGH SCHOOL SOCIAL SCIENCE TEACHER BASIC METABOLIC PANEL Routine 05/30/2004 6:17 PM HIGH SCHOOL SOCIAL SCIENCE TEACHER DRUG SCREEN, URINE Routine 05/30/2004 6: 03 PM HIGH SCHOOL SOCIAL SCIENCE TEACHER URINALYSIS W/REFLEX MICROSCOPIC Routine 05/30/2004 6:03 PM HIGH SCHOOL SOCIAL SCIENCE TEACHER documented in this encounter Results * BASIC METABOLIC PANEL (05/30/2004 6:17 PM HIGH SCHOOL SOCIAL SCIENCE TEACHER) Pathologist [facility] GLUCOSE 86 65 - 109 mg/dL INTERFACE [...] 30 mmol/L INTERFACE SYSTEM 05/30/2004 6:17 PM HIGH SCHOOL SOCIAL SCIENCE TEACHER Kevin Lott MD CHEMISTRY ORDERABLES Final Res ult INTERFACE SYSTEM Refer to clinic/hospital department * (ABNORMAL) CBC WITH DIFFERENTIAL (05/30/2004 6:17 PM HIGH SCHOOL SOCIAL SCIENCE TEACHER) NEUTROPHIL ABSOLUTE 6.50 1.90 - 7.00 K/uL [...] MACROCYTES Slight INTERFACE SYSTEM 05/30/2004 6:17 PM HIGH SCHOOL SOCIAL SCIENCE TEACHER us Kevin Lott MD HEMATOLOGY ORDERABLES Final Re sult Performing Organization Address [facility] Co de Phone Number INTERFACE SYSTEM Refer to clinic/hospital department * (ABNORMAL) CBC WITH DIFFERENTIAL (05/30/2004 6:17 PM HIGH SCHOOL SOCIAL SCIENCE TEACHER) Pathologist [facility] WBC 12.5(H) 4.0 - 9.8 K/uL INTERFACE [...] 12.4 fL INTERFACE SYSTEM 05/30/2004 6:17 PM HIGH SCHOOL SOCIAL SCIENCE TEACHER us Kevin Lott MD HEMATOLOGY ORDERABLES Final Re sult Performing Organization Address City/[facility]/ZIP Co de Phone Number INTERFACE SYSTEM Refer to clinic/hospital department * (ABNORMAL) HEPATIC FUNCTION PANEL (05/30/2004 6:17 PM HIGH SCHOOL SOCIAL SCIENCE TEACHER) AST 18 12 - 32 U/L INTERFACE SYSTEM ALKALINE PHOSPHATASE 143(H) 35 - 104 U/L INTERFACE SYSTEM BILIRUBIN TOTAL 0.2 0.2 - 1.0 mg/dL INTERFACE SYSTEM ALBUMIN 4.0 3.4 - 4.8 g/dL INTERFACE SYSTEM TOTAL PROTEIN 7.3 6.0 - 8.3 g/dL INTERFACE SYSTEM ALT 17 0 - 31 U/L INTERFACE SYSTEM BILIRUBIN DIRECT <0.1 0.0 - 0.3 mg/dL INTERFACE SYSTEM 05/30/2004 6:17 PM HIGH SCHOOL SOCIAL SCIENCE TEACHER us Kevin Lott MD CHEMISTRY ORDERABLES Final Res ult Performing Organization Address [facility] Phone Number INTERFACE SYSTEM Refer to clinic/hospital department * LIPASE (05/30/2004 6:17 PM HIGH SCHOOL SOCIAL SCIENCE TEACHER) LIPASE 29 13 - 60 U/L INTERFAC E SYSTEM 05/30/2004 6:17 PM HIGH SCHOOL SOCIAL SCIENCE TEACHER us Kevin Lott MD CHEMISTRY ORDERABLES Final Res ult Performing Organization Address [facility] Phone Number INTERFACE SYSTEM Refer to clinic/hospital department * URINALYSIS (05/30/2004 6:03 PM HIGH SCHOOL SOCIAL SCIENCE TEACHER) COLOR UA Yellow INTERFACE SYSTEM CLARITY UA [...] Negative Negative INTERFACE SYSTEM 05/30/2004 6:03 PM HIGH SCHOOL SOCIAL SCIENCE TEACHER us Kevin Lott MD URINE ORDERABLES Final Result Performing Organization Address [facility] Phone Number INTERFACE SYSTEM Refer to clinic/hospital department * DRUG SCREEN, URINE (05/30/2004 6:03 PM HIGH SCHOOL SOCIAL SCIENCE TEACHER) COMMENT, TOXICOLOGY See Separate Comment INTERFACE SYSTEM [...] Negative INTE RFACE SYSTEM 05/30/2004 6:03 PM HIGH SCHOOL SOCIAL SCIENCE TEACHER us Kevin Lott MD URINE ORDERABLES Final Result INTERFACE SYSTEM Refer to clinic/hospital department documented in this encounter Visit Diagnoses Diagnosis Unspecified nonpsychotic mental disorder- Primary documented in this encounter Care Teams Factory Worker Relationship Specialty Start Date End Date Fern Aguilar FNP [address] [place] [address] PCP - General Nurse Practitioner Family 05/08/20 documented as of this encounter
--- OUTSIDE RECORDS SUMMARY | 2024-11-26 15:05 | XMS_ITS | Encounter Summary ---
Author Organization [facility] Address [address] [place] [address] Care Team Providers Care Clinical Laboratory Aide Name Role Phone Fern Aguilar [employer] OFFICER Primary Care Provider [phone] Encounter Details Date Type Department Care Team (Latest Contact Info) Description 12/21/2004 Outpatient Historical [facility] Hoang Martinez JOINT PAIN-L/LEG (Primary Dx) Social History Tobacco Use Types Packs/Day Years Used Date Smoking Tobacco: Never Assessed Comments Unknown Sex and Gender Information Value Date Recorded Sex Assigned at Not on file Legal Sex Female 10:00 PM PLY BANDER Gender Identity Not on file Sexual Orientation Not on file documented as of this encounter Plan of Treatment Upcoming Encounters Date Type Department Care Team (Late st Contact Info) Description 12/25/2024 10:30 AM CDT Office Visit [facility] Urology [address] [place] [phone] Kathy Jackson FNP [address] [facility] [address] [place] [address] 02/08/2025 9:30 AM PLY BANDER Office Visit [facility] [address] [place] [address] Leana Pederson PA [address] [place] [address] 02/20/2025 8:30 AM PLY BANDER Office Visit [facility] [address] [place] [address] [address] [place] [address] Triny Pruitt DO [address] [place] [address] [address] [place] [address] documented as of this encounter Visit Diagnoses Diagnosis Pain in joint, lower leg- Primary documented in this encounter Care Teams Clinical Laboratory Aide Relationship Specialty Start Date End Date Fern Aguilar FNP [address] [place] [address] PCP - General Nurse Practitioner Family 05/08/20 documented as of this encounter
--- OUTSIDE RECORDS SUMMARY | 2024-11-26 15:05 | XMS_ITS | Encounter Summary ---
Author Organization [employer] Address [address] [place] [address] Care Team Providers Care Criminal Justice Department Chair Name Role Phone Fern Aguilar RANDY Primary Care Provider [phone] Encounter Details Date Type Department Care Team (Latest Contact Info) Description 08/30/2005 Inpatient Historical [facility] INPATIENT IN BED Brandan Churchill MD [address] [place] [address] Jessica Arriola MD [address] [place] [address] Poisoning by [employer], not Elsewhere Classified (Primary Dx) Social History Tobacco Use Types Packs/Day Years Used Date Smoking Tobacco: Never Assessed Comments Unknown Sex and Gender Information Value Date Recorded Sex Assigned at Not on file Legal Sex Female 10:00 PM HIGH DENSITY PRESS OPERATOR Gender Identity Not on file Sexual Orientation Not on file documented as of this encounter Plan of Treatment Upcoming Encounters Date Type Department Care Team (Late st Contact Info) Description 12/25/2024 10:30 AM CDT Office Visit [facility] Urology [address] [place] [address] Kathy Jackson FNP [address] [facility] [address] [place] [address] 02/08/2025 9:30 AM HIGH DENSITY PRESS OPERATOR Office Visit [facility] [place] [address] [place] [address] Leana Pederson PA [address] [place] [address] 02/20/2025 8:30 AM HIGH DENSITY PRESS OPERATOR Office Visit [facility] [address] [place] [address] Triny Pruitt DO [address] [place] [address] documented as of this encounter [...] 1:15 PM CDT HEPATIC FUNCTION PANEL Routine 200 6 1:15 PM CDT BASIC METABOLIC PANEL [...] ORDERABLES Final Re sult Performing Organization Address City/[facility] Phone Number INTERFACE SYSTEM Refer to clinic/hospital department * (ABNORMAL) ACETAMINOPHEN LEVEL (08/31/2005 10:10 AM CDT) ACETAMINOPHEN LEVEL <0.7(L) 10.0 - 20.0 ug/mL INTERFACE SYSTEM 08/31/2005 10:1 0 AM CDT Brandan Churchill MD CHEMISTRY ORDERABLES Final Re sult Performing Organization Address [facility] Phone Number INTERFACE SYSTEM Refer [...] ORDERABLES Final Re sult Performing Organization Address City/[facility]/ZIP Co de Phone Number INTERFACE SYSTEM Refer [...] patients with mechanical heart valves or post NV. Pediatric (12 years and under): 1.5 - [...] ORDERABLES Final R esult Performing Organization Address [facility] de Phone Number INTERFACE SYSTEM Refer to [...] 0.0 - 0.3 mg/dL INTERFACE SYSTEM 08/31/2005 5:15 AM CDT Brandan Churchill MD CHEMISTRY ORDERABLES Final Re sult Performing Organization Address [facility] Phone Number INTERFACE SYSTEM Refer to clinic/hospital department * (ABNORMAL) ACETAMINOPHEN LEVEL (08/30/2005 9:15 PM CDT) ACETAMINOPHEN LEVEL 46.6(H) 10.0 - 20.0 ug/mL INTERFACE SYSTEM 08/30/2005 9:15 PM CDT us Brandan Churchill MD CHEMISTRY ORDERABLES Final Re sult Performing Organization Address [facility] Phone Number INTERFACE SYSTEM Refer [...] CHEMISTRY ORDERABLES Final Result Performing Organization Address [facility] Phone Number INTERFACE SYSTEM Refer [...] K/uL INTERFACE SYSTEM 08/30/2005 1:15 PM CDT Jessiac Arriola MD HEMATOLOGY ORDERABLES [place] Result Performing Organization Address City/[facility] de Phone Number INTERFACE SYSTEM Refer to [...] fL INTERFACE SYSTEM 08/30/2005 1:15 PM CDT Jessica Arriola MD HEMATOLOGY ORDERABLES [place] Result Performing Organization Address City/[facility] de Phone Number INTERFACE SYSTEM Refer to [...] patients with mechanical heart valves or post NV. Pediatric (12 years and under): 1.5 - 3.0 Although the target range in children is not well established , INR values of 1.5 - 3.0 are recommended for most patients. Higher values have been used in children with prosthetic cardiac valves and hereditary clotting disorders. (<3 days) therapeutic ranges have not been established. 08/30/2005 1:15 PM CDT Jessica Arriola MD HEMATOLOGY ORDERABLES [place] l Result Performing Organization Address [facility] Phone Number INTERFACE SYSTEM Refer to clinic/hospital department * (ABNORMAL) SALICYLATE LEVEL (08/30/2005 1:15 PM CDT) SALICYLATE LEVEL <0.3(L) 2.0 - 25.0 mg/dL INTERFACE SYSTEM 08/30/2005 1:15 PM CDT Jessica Arriola MD CHEMISTRY ORDERABLES Final Result Performing Organization Address [facility] Phone Number INTERFACE SYSTEM Refer [...] mg/dL INTERFACE SYSTEM 08/30/2005 1:15 PM CDT Jessica Arriola MD CHEMISTRY ORDERABLES Final Result Performing Organization Address [facility] Phone Number INTERFACE SYSTEM Refer to clinic/hospital department * ETHANOL LEVEL (08/30/2005 1:15 PM CDT) ETHANOL <10 <=10 mg/dL INTERFACE SYSTEM 08/30/2005 1:15 PM CDT Jessica Arriola MD CHEMISTRY ORDERABLES Final Result Performing Organization Address [facility] Phone Number INTERFACE SYSTEM Refer to clinic/hospital department * ACETAMINOPHEN LEVEL (08/30/2005 1:15 PM CDT) ACETAMINOPHEN LEVEL 460 10.0 - 20.0 ug/mL INTERFACE SYSTEM Comment:Results called to [place] jaspreet at 08/30/2005 2:11 PM by [facility] and read back verified. 08/30/2005 1:15 PM CDT Jessica Arriola MD CHEMISTRY ORDERABLES Final Result Performing Organization Address [facility] Phone Number INTERFACE SYSTEM Refer to [...] Arriola MD URINE ORDERABLES Final Res ult Performing Organization Address [facility] Phone Number INTERFACE SYSTEM Refer to clinic/hospital department * HCG QUALITATIVE, URINE (08/30/2005 1:01 PM CDT) HCG QUAL URINE Negative Negative INTER FACE SYSTEM SPECIFIC GRAVITY UA 1.010 1.001 - 1.035 INTERFACE SYSTEM 08/30/2005 1:01 PM CDT us Jessica Arriola MD URINE ORDERABLES Final Res ult INTERFACE SYSTEM Refer to clinic/hospital department documented in this encounter Visit Diagnoses Diagnosis Poisoning by aromatic analgesics, not elsewhere classified(965.4)- Primary Poisoning by aromatic analgesics, not elsewhere classified documented in this encounter Care Teams Criminal Justice Department Chair Relationship Specialty Start Date End Date Fern Aguilar FNP [address] [place] [address] PCP - General Nurse Practitioner Family 05/08/20 documented as of this encounter
--- OUTSIDE RECORDS SUMMARY | 2024-11-26 15:05 | XMS_ITS | Encounter Summary ---
Author Organization [employer] Address [address] [place] [address] Care Team Providers Care Mental Health Technician Name Role Phone Fern Aguilar [facility] Primary Care Provider [phone] Encounter Details Date Type Department Care Team (Late st Contact Info) Description 12/08/2004 Emergency [facility] Jalyn Coles [address] [place] [address] ABN FIND-STOOL CONTENTS-OCC BLOOD (Primary Dx) Social History Tobacco Use Types Packs/Day Years Used Date Smoking Tobacco: Never Assessed Comments Unknown Sex and Gender Information Value Date Recorded Sex Assigned at Not on file Legal Sex Female 10:00 PM PROPELLANT CHARGE ZONE ASSEMBLER Gender Identity Not on file Sexual Orientation Not on file documented as of this encounter Plan of Treatment Upcoming Encounters Date Type Department Care Team (Late st Contact Info) Description 12/25/2024 10:30 AM CDT Office Visit [facility] [address] [place] [phone] Kathy Jackson FNP [address] [facility] [address] [place] [address] 02/08/2025 9:30 AM PROPELLANT CHARGE ZONE ASSEMBLER Office Visit [facility] [address] [place] [phone] Leana Pederson PA [address] [place] [phone] 02/20/2025 8:30 AM PROPELLANT CHARGE ZONE ASSEMBLER Office Visit [facility] [address] [facility] [address] [place] [address] Triny Pruitt DO [address] [facility] [address] [place] [address] documented as of this encounter Visit Diagnoses Diagnosis Nonspecific abnormal finding in stool contents- Primary documented in this encounter Care Teams Mental Health Technician Relationship Specialty Start Date End Date Fern Aguilar FNP [address] [place] [phone] PCP - General Nurse Practitioner Family 05/08/20 documented as of this encounter
--- OUTSIDE RECORDS SUMMARY | 2024-11-26 15:05 | XMS_ITS | Clinical Summary ---
Author Organization [facility] Facility Address [address] [address] Care Team Providers Care Plate Inspector Name Role Phone Ashok Boyd MD Primary Care Provider [phone] Allergies Active Allergy Reactions Criticality Noted Date Comments Acetaminophen Rash,Other (see comments) Low 10/10/2022 Aspirin Rash Low 10/10/2022 Other reaction(s): Not available Azithromycin Itching 10/10/2022 Other reaction(s): ALGY-Rash, Not available Bee Venom Anaphylaxis High 10/10/2022 Other reaction(s): Not available Haloperidol Other (see comments) 10/10/2022 Other reaction(s): ADR-Seizure, Not available Ibuprofen Low 10/10/2022 Other reaction(s): Unknown Methylprednisolone Itching 02/10/2023 Prednisone 02/10/2023 Other reaction(s): Not available Tramadol Hives 10/10/2022 Other reaction(s): ADR-Seizure, Not available Medications buPROPion XL (WELLBUTRIN XL) 300 MG 24 hr tablet Take 1 tablet by mouth Active Calcium Carbonate-Vitam in D (CALCIUM-CARB 600 + D PO) Take 1 tablet by mouth 1 (one) time each day 3 Active cetirizine (ZyrTEC) 10 MG tablet Take 1 tablet by mouth 1 (one) time each day 3 Active Cholecalciferol (Vitamin D) 25 MCG (1000 UT) tablet Take 1 tablet by mouth 1 (one) time per week Active cyclobenzaprine (FLEXERIL) 10 MG tablet three times daily, as needed 2 Active desmopressin (DDAVP) 0.2 MG tablet Take 1 tablet by mouth at bed time Active dicyclomine (BENTYL) 10 MG capsule Take 1 capsule by mouth 3 (three) times a day if needed Active diphenhydrAMINE (Banophen) 25 MG capsule Take 1 capsule by mouth every 4 (four) hours if needed Active apixaban (Eliquis) 5 MG tablet Take 5 mg by mouth in the morning and 5 mg in the evening. 2 Active EPINEPHrine (EpiPen 2-Norm) 0.3 MG/0.3ML injection syringe INJECT DIRECTED FOR BEE STING Active famotidine (PEPCID) 20 MG tablet Take 1 tablet by mouth 1 (one) time each day Active fluticasone (FLONASE) 50 MCG/ACT nasal spray USE ONE SPRAY in each nostril EVERY DAY Active furosemide (LASIX) 20 MG tablet TAKE ONE TABLET BY MOUTH EVERY DAY at NOON Active furosemide (LASIX) 40 MG tablet Take 1 tablet by mouth 1 (one) time each day Active gabapentin (NEURONTIN) 600 MG tablet Take 600 mg by mouth in the morning and 600 mg at noon and 600 mg in the evening. 1 Active hydrOXYzine (ATARAX) 25 MG tablet TAKE 1 TABLET BY MOUTH AT BEDTIME AND ONE EVERY DAY NEEDED Active levothyroxine (SYNTHROID, LEVOTHROID) 100 MCG tablet Take 1 tablet by mouth 1 (one) time each day 3 Active Lurasidone HCl (Latuda) 60 MG tablet take 1 tablet BY MOUTH TWICE DAILY (afterbreakfast and SUPPER) Active losartan (COZAAR) 25 MG tablet Take 1 tablet by mouth 1 (one) time each day Active Loperamide HCl (IMODIUM PO) 2 mg 2 Active Camphor-Menthol -Methyl Clem 3.1-6-10 % patch daily as needed for sciatic pain 2 Active meloxicam (MOBIC) 7.5 MG tablet Take 1 tablet by mouth 1 (one) time each day Active Menthol 5 MG lozenge Take 1 lozenge every hour by mucous route as needed. 3 Active nystatin (Nyamyc) powder APPLY TO THE AFFECTED AREA(S) TWICE DAILY NEEDED Active OXcarbazepine (TRILEPTAL) 300 MG tablet TAKE 1 TABLET BY MOUTH EVERY MORNING, ONE at NOON and ONE EVERY EVENING Active oxybutynin XL (DITROPAN-XL) 5 MG 24 hr tablet Take 1 tablet by mouth 1 (one) time each day Active pimecrolimus (Elidel) 1 % cream APPLY IN ABDOMINAL FOLDS TWICE DAILY FOR TWO MONTHS Active sertraline (ZOLOFT) 50 MG tablet Take 3 tablets by mouth 1 (one) time each day Active spironolactone (ALDACTONE) 25 MG tablet Take 0.5 tablets by mouth 1 (one) time each day Active ergocalciferol 1.25 MG (62423 UT) capsule Take 1 capsule by mouth 1 (one) time per week 2 Active TRIAMCINOLONE ACETONIDE EX Twice A Day 3 Active potassium chloride (K-TAB) 20 MEQ CR tablet Take 20 mEq by mouth 1 (one) time each day 0 Active Probiotic Product (ADVANCED PROBIOTIC PO) Take 1 capsule by mouth in the morning. Active Menthol, Topical Analgesic, (ICY HOT EX) Apply 1 Application topically in the morning and 1 Application in the evening. Active Menthol-Methyl Salicylate (Icy Hot Extra Strength) 10-30 % stick Apply 1 application. topically in the morning and 1 application. in the evening. Active UNABLE TO FIND Apply 1 patch topically 1 (one) time each day Med Name: Lidocaine 5% topical patch Remove after 12 hours Active guaiFENesin (MUCINEX) 600 MG 12 hr tablet Take 1,200 mg by mouth in the morning and 1,200 mg in the evening. Do not crush, chew, or split.. Active mupirocin (BACTROBAN) 2 % ointment Apply 1 application. topically in the morning and 1 application. in the evening. Active neomycin-polymy carlton-pramoxine (NEOSPORIN) 1 % cream Apply 1 application. topically in the morning and 1 application. in the evening. Active norethindrone (MICRONOR) 0.35 MG tablet Take 1 tablet by mouth 1 (one) time each day Active Immunizations Immunization Administration Dates Next Due Hep A / Hep B 10/25/2003 Hep B, Adolescent or Pediatric 07/29/2000 Hepatitis B 09/15/2016 Influenza Split 01/16/2009 Influenza, Quadrivalent, Preservative Free 01/17 Influenza, Unspecified 01/11/2012,02/12/2010 Moderna SARS-COV-2 12/10/2020,11/12/2020 Pneumococcal Polysaccharide 02/20/2002 Tdap 08/30/2016 Family History Medical History Relation Comments Cancer Mother Relation Status Comments Mother Social History Tobacco Use Types Packs/Day Years Used Date Smoking Tobacco: Every Day Cigarettes Tobacco Cessation:Ready to Q uit: Not Asked; Counseling Given: Not Answered Alcohol Use Standard Drinks/Week Comments Yes 0 (1 standard drink = 0.6 oz pur e alcohol) occasional Comments Unknown Sex and Gender Information Value Date Recorded Sex Assigned at Not on file Legal Sex Female 1:20 PM EDT Gender Identity Not on file Sexual Orientation Not on file Plan of Treatment Health Maintenance Due Date Last Done Comments Pneumococcal Vaccine: Peds ( 0 to 5 Years) and At-Risk Patients (6 to 49 Years) (2 of 2 - PCV) 02/20/2003 02/20/2002 Hepatitis B Vaccine (3 of 3 - 3-dose series) 11/10/2016 09/15/2016, 10/25/2003, 07/29/2000 Influenza Vaccine (#1) 2024 , 01/11/2012, 02/12/2010, Additional history exists Insurance Medicaid [place] ([id number]) Care Teams Plate Inspector Relationship Specialty Start Date End Date Ashok Boyd MD [address] [place] [address] PCP - General Family Medicine 08/19/21
--- OUTSIDE RECORDS SUMMARY | 2024-11-26 15:05 | XMS_ITS | Encounter Summary ---
Author Organization [facility] Address [address] [place] [address] Care Team Providers Care Recreation Worker Name Role Phone Fern Aguilar RANDY Primary Care Provider [phone] Encounter Details Date Type Department Care Team (Late Contact Info) Description 11/21/2024 External Device Data STL ABSTRACTION [...] on file Legal Sex Female 10:00 PM PARTICLEBOARD FACTORY WORKER Gender Identity Not on file Sexual Orientation Not on file documented as of this encounter Plan of Treatment Upcoming Encounters Date Type Department Care Team (Late Contact Info) Description 12/25/2024 10:30 AM CDT Office Visit [facility] [address] [place] [address] Kathy Jackson FNP [address] [place] [address] 02/08/2025 9:30 AM PARTICLEBOARD FACTORY WORKER Office Visit [facility] [place] [address] [place] [phone] Leana Pederson PA [address] [place] [address] 02/20/2025 8:30 AM PARTICLEBOARD FACTORY WORKER Office Visit [facility] JENNIFER-Kathe [address] [place] [address] [address] [place] [address] Triny Pruitt DO [address] [facility] [address] [place] [address] documented as of this encounter Visit Diagnoses Not on filedocumented in this encounter Care Teams Recreation Worker Relationship Specialty Start Date End Date Fern Aguilar FNP [address] [place] [address] PCP - General Nurse Practitioner Family 05/08/20 documented as of this encounter
--- OUTSIDE RECORDS SUMMARY | 2024-11-26 15:05 | XMS_ITS | Encounter Summary ---
Author Organization [facility] Address [address] [place] [address] Care Team Providers Care Php Website Developer Name Role Phone Fern Aguilar IMAGING MANAGER Primary Care Provider [phone] Encounter Details Date Type Department Care Team (Late st Contact Info) Description 03/30/2002 Outpatient Historical [facility] RADIOLOGY Conversion, History JOINT PAIN-PELVIS (Primary Dx) Social History Tobacco Use Types Packs/Day Years Used Date Smoking Tobacco: Never Assessed Comments Unknown Sex and Gender Information Value Date Recorded Sex Assigned at Not on file Legal Sex Female 10:00 PM AUTO MECHANIC Gender Identity Not on file Sexual Orientation Not on file documented as of this encounter Plan of Treatment Upcoming Encounters Date Type Department Care Team (Late st Contact Info) Description 12/25/2024 10:30 AM CDT Office Visit [facility] [address] [place] [address] Kathy Jackson FNP [address] [place] [address] [address] [place] [address] 02/08/2025 9:30 AM AUTO MECHANIC Office Visit [facility] [address] [place] [address] Leana Pederson PA [address] [place] [address] 02/20/2025 8:30 AM AUTO MECHANIC Office Visit [facility] [address] [place] [address] Triny Pruitt DO [address] [facility] [address] [place] [address] documented as of this encounter Visit Diagnoses Diagnosis Pain in joint, pelvic region and thigh- Primary documented in this encounter Care Teams Php Website Developer Relationship Specialty Start Date End Date Fern Aguilar FNP [address] [place] [address] PCP - General Nurse Practitioner Family 05/08/20 documented as of this encounter
--- OUTSIDE RECORDS SUMMARY | 2024-11-26 15:05 | XMS_ITS | Encounter Summary ---
Author Organization [employer] [facility] Address [address] [place] [address] Care Team Providers Care Furnace Tapper Name Role Phone Fern Aguilar FLORAL CLERK Primary Care Provider [phone] Encounter Details Date Type Department Care Team (Latest Contact Info) Description 11/25/2004 Inpatient Historical [facility] INPATIENT IN BED Rajeev Kyle, NO ADDRESS ON FILE POISONING-AROM ANALGESICS NEC (Primary Dx) Social History Tobacco Use Types Packs/Day Years Used Date Smoking Tobacco: Never Assessed Comments Unknown Sex and Gender Information Value Date Recorded Sex Assigned at Not on file Legal Sex Female 10:00 PM HELP DESK MANAGER Gender Identity Not on file Sexual Orientation Not on file documented as of this encounter Plan of Treatment Upcoming Encounters Date Type Department Care Team (Late st Contact Info) Description 12/25/2024 10:30 AM CDT Office Visit [facility] [address] [place] [address] Kathy Jackson FNP [address] [place] [address] [address] [place] [address] 02/08/2025 9:30 AM HELP DESK MANAGER Office Visit [facility] [address] [place] [address] Leana Pederson PA [address] [place] [address] 02/20/2025 8:30 AM HELP DESK MANAGER Office Visit [facility] OBGYN-[address] [place] [phone] PruittTriny DO [address] [place] [address] documented as of this encounter [...] ug/mL INTERFACE SYSTEM 11/28/2004 2:32 PM CDT Rajeev Kyle DO CHEMISTRY ORDERABLES Final R esult Performing Organization Address [facility] de Phone Number INTERFACE SYSTEM Refer to clinic/hospital department * (ABNORMAL) CBC WITH DIFFERENTIAL (11/28/2004 3:10 AM CDT) NEUTROPHILS 55 45 - 70 % INTERFAC [...] K/uL INTERFACE SYSTEM 11/28/2004 3:10 AM CDT Rajeev Kyle DO HEMATOLOGY ORDERABLES Final Result Performing Organization Address [facility] Phone Number INTERFACE SYSTEM Refer to clinic/hospital department * (ABNORMAL) CBC WITH DIFFERENTIAL (11/28/2004 3:10 AM CDT) WBC 13.6(H) 4.0 - 9.8 K/uL INTERFACE [...] fL INTERFACE SYSTEM 11/28/2004 3:10 AM CDT [facility] Ann Kyle HEMATOLOGY ORDERABLES Final Result Performing Organization Address [facility] Phone Number INTERFACE SYSTEM Refer to clinic/hospital [...] INTER FACE SYSTEM 11/27/2004 5:00 AM CDT Rajeev Kyle DO HEMATOLOGY ORDERABLES Final Result Performing Organization Address [facility] Phone Number INTERFACE SYSTEM Refer to clinic/hospital [...] fL INTERFACE SYSTEM 11/27/2004 5:00 AM CDT us Rajeev Kyle DO HEMATOLOGY ORDERABLES Final Result Performing Organization Address [facility] Phone Number INTERFACE SYSTEM Refer to clinic/hospital [...] patients with mechanical heart valves or post [place]. Pediatric (12 years and under): 1.5 - 3.0 Although the target range in children is not well established , INR values of 1.5 - 3.0 are recommended for most patients. Higher values have been used in children with prosthetic cardiac valves and hereditary clotting disorders. (<3 days) therapeutic ranges have not been established. 11/26/2004 8:23 AM CDT us Rajeev Kyle DO HEMATOLOGY ORDERABLES Final Result Performing Organization Address [facility] Phone Number INTERFACE SYSTEM Refer to clinic/hospital department * (ABNORMAL) LITHIUM LEVEL (11/26/2004 8:23 AM CDT) LITHIUM 0.4(L) 0.6 - 1.2 mmol/L INTERFACE SYSTEM 11/26/2004 8:23 AM CDT us Rajeev Kyle DO CHEMISTRY ORDERABLES Final R esult Performing Organization Address [facility] Phone Number INTERFACE SYSTEM Refer to clinic/hospital department * (ABNORMAL) URINALYSIS (11/26/2004 8:00 AM CDT) WBC UA 0-5 0 - 5 /HPF INTERFACE SYSTEM RBC UA 0-2 0 - 2 /HPF INTERFACE SYSTEM BACTERIA UA 1+(A) None Seen /HPF INTERFACE SYSTEM EPITHELIAL CELLS, URINE 2-5 /HPF INTERFACE SYSTEM MUCOUS, URINE 1+ INTERF ROMULO SYSTEM 11/26/2004 8:00 AM CDT Rajeev Kyle DO URINE ORDERABLES Final Resul t Performing Organization Address [facility] Phone Number INTERFACE SYSTEM Refer to clinic/hospital [...] ORDERABLES Final Resul t Performing Organization Address [facility] Phone Number INTERFACE SYSTEM Refer to clinic/hospital [...] ORDERABLES Final R esult Performing Organization Address [facility] Phone Number INTERFACE SYSTEM Refer to clinic/hospital department * (ABNORMAL) ACETAMINOPHEN LEVEL (11/26/2004 5:00 AM CDT) ACETAMINOPHEN LEVEL 54.6(H) 10.0 - 20.0 ug/mL INTERFACE SYSTEM 11/26/2004 5:00 AM CDT us Rajeev Kyle DO CHEMISTRY ORDERABLES Final R esult Performing Organization Address [facility] Phone Number INTERFACE SYSTEM Refer [...] mg/dL INTERFACE SYSTEM 11/26/2004 5:00 AM CDT us Rajeev Kyle DO CHEMISTRY ORDERABLES Final R esult Performing Organization Address [facility] Phone Number INTERFACE SYSTEM Refer to clinic/hospital department * (ABNORMAL) SALICYLATE LEVEL (11/25/2004 10:15 PM CDT) SALICYLATE LEVEL <0.3(L) 2.0 - 25.0 mg/dL INTERFACE SYSTEM Comment:Previous specimen us ed; approved by floor. 11/25/2004 10:1 5 PM CDT us Avtar Arteaga MD CHEMISTRY ORDERABLES Final Res ult INTERFACE SYSTEM Refer to clinic/hospital department documented in this encounter Visit Diagnoses Diagnosis Poisoning by aromatic analgesics, not elsewhere classified(965.4)- Primary Poisoning by aromatic analgesics, not elsewhere classified documented in this encounter Care Teams Furnace Tapper Relationship Specialty Start Date End Date Fern Aguilar FNP [address] [place] [address] PCP - General Nurse Practitioner Family 05/08/20 documented as of this encounter
--- OUTSIDE RECORDS SUMMARY | 2024-11-26 15:05 | XMS_ITS | Encounter Summary ---
Author Organization [facility] Address [address] [place] [address] Care Team Providers Care Janitorial Supervisor Name Role Phone Fern Aguilar RANDY Primary Care Provider [phone] Encounter Details Date Type Department Care Team (Late st Contact Info) Description 02/03/2005 Outpatient Historical [facility] Family Medicine [address] [place] [address] Kaiser Patel, DO [address] [phone] Social History Tobacco Use Types Packs/Day Years Used Date Smoking Tobacco: Never Assessed Comments Unknown Sex and Gender Information Value Date Recorded Sex Assigned at Not on file Legal Sex Female 10:00 PM AUTO PARTS CLERK Gender Identity Not on file Sexual Orientation Not on file documented as of this encounter Plan of Treatment Upcoming Encounters Date Type Department Care Team (Late st Contact Info) Description 12/25/2024 10:30 AM CDT Office Visit [facility] Urology [address] [place] [address] Kathy Jackson FNP [address] [place] [address] 02/08/2025 9:30 AM AUTO PARTS CLERK Office Visit [facility] [address] [place] [address] Leana Pederson PA [address] [place] [address] 02/20/2025 8:30 AM AUTO PARTS CLERK Office Visit [facility] Kathia [address] [place] [address] [address] [place] [address] Triny Pruitt DO [address] [facility] [address] [place] [address] documented as of this encounter Visit Diagnoses Not on filedocumented in this encounter Care Teams Janitorial Supervisor Relationship Specialty Start Date End Date Fern Aguilar FNP [address] [place] [address] PCP - General Nurse Practitioner Family 05/08/20 documented as of this encounter
--- OUTSIDE RECORDS SUMMARY | 2024-11-26 15:05 | XMS_ITS | Encounter Summary ---
Author Organization [facility] Address [address] [place] [address] Care Team Providers Care Moccasin Sewer Name Role Phone Fern Aguilar [facility] Primary Care Provider [phone] Encounter Details Date Type Department Care Team (Late st Contact Info) Description 08/30/2005 Outpatient Historical [facility] Primary Care Internal Medicine [address] [place] [address] Brandan Churcihll MD [address] [place] [address] Social History Tobacco Use Types Packs/Day Years Used Date Smoking Tobacco: Never Assessed Comments Unknown Sex and Gender Information Value Date Recorded Sex Assigned at Not on file Legal Sex Female 10:00 PM WATER PUMP OPERATOR Gender Identity Not on file Sexual Orientation Not on file documented as of this encounter Plan of Treatment Upcoming Encounters Date Type Department Care Team (Late st Contact Info) Description 12/25/2024 10:30 AM CDT Office Visit [facility] Urology [address] [place] [address] Kathy Jackson FNP [address] [facility] [address] [place] [address] 02/08/2025 9:30 AM WATER PUMP OPERATOR Office Visit [facility] [place] [address] [place] [address] Leana Pederson PA [address] [place] [address] 02/20/2025 8:30 AM WATER PUMP OPERATOR [facility] [address] [place] [address] [address] [place] [address] Triny Pruitt DO [facility] [address] [place] [address] documented as of this encounter Visit Diagnoses Not on filedocumented in this encounter Care Teams Moccasin Sewer Relationship Specialty Start Date End Date Fern Aguilar FNP [address] [place] [address] PCP - General Nurse Practitioner Family 05/08/20 documented as of this encounter
--- OUTSIDE RECORDS SUMMARY | 2024-11-26 15:05 | XMS_ITS | Encounter Summary ---
Author Organization [facility] Address [address] [place] [address] Care Team Providers Care Beaming Inspector Name Role Phone Fern Aguilar RANDY Primary Care Provider [phone] Reason for Referral * Radiology Services (Routine) - Closed Specialty Diagnoses / Procedures Referred By Debra chaves Referred To Contact Radiology Diagnoses Peripheral edema Procedures US VENOUS DOPPLER LEG BILATERAL [facility] Pre-Registration [place] CALL TO MAKE APPOINTMENT ONLY [address] [place] [address] Phone: tel: fax: [facility] [place] [address] [place] [address] Phone: tel: fax: Referral ID Status Reason Start Date Expiration Date V isits Requested Visits Authorized [id number] Closed [facility] View CTS to Schedule 05/08/2020 06/08/2021 1 1 Electronically signed by [facility] [place] [facility], External Provider at 05/08/2020 10:03 AM SUSTAINABILITY SPECIALIST Encounter Details Date Type Department Care Team (Late st Contact Info) Description 05/08/2020 Ancillary Orders [facility] Pre-Registration [place] CALL TO MAKE APPOINTMENT ONLY [address] [place] [address] [facility], External [place] [address] Peripheral edema Social History Tobacco Use Types Packs/Day Years Used Date Smoking Tobacco: Never Assessed Comments Unknown Sex and Gender Information Value Date Recorded Sex Assigned at Not on file Legal Sex Female 9:56 AM SUSTAINABILITY SPECIALIST Gender Identity Not on file Sexual Orientation Not on file documented as of this encounter Plan of Treatment Not on file documented as of this encounter Results * US VENOUS DOPPLER LEG BILATERAL (06/04/2020 2:26 PM SUSTAINABILITY SPECIALIST) Anatomical Region Laterality Modality Lower Extremity Ultrasound 06/04/2020 1:29 PM SUSTAINABILITY SPECIALIST Narrative 06/05/2020 5:32 PM SUSTAINABILITY SPECIALIST [facility] Radiology Services - Noninvasive Vascular [address] [address] Noninvasive Vascular Lab Venous Exam Complete Lower Extremity Duplex Patient: Deann Vega Study ID: US VENOUS DOPPLE Gender: F : 1985 Age: 35 Room: Height: Weight: BSA: Pt status: Outpatient Study Date: 06/04/2020 Study Time: 01:29:03 PM BSA: Ordering: [facility], External Provider Interpreting:Jonnathan Jaeger Net Washer: Kassi Barbour History: Edema of both lower [...] Procedure Note Jonnathan Jaeger MD - 06/05/2020 [facility] Radiology Services - Noninvasive Vascular [address] [address] Noninvasive Vascular Lab Venous Exam Complete Lower Extremity Duplex Patient: Deann Vega Study ID: US VENOUS DOPPLE Gender: F : 1985 Age: 35 Room: Height: Weight: BSA: Pt status: Outpatient Study Date: 06/04/2020 Study Time: 01:29:03 PM BSA: Ordering: [facility], External Provider Interpreting:Jonnathan Jaeger Net Washer: Kassi Barbour History: Edema of both lower [...] Jonnathan Jaeger Confirmed 06/05/2020 17:31 External Provider [facility] ORDERABLES Final Resu lt documented in this encounter Visit Diagnoses Diagnosis Peripheral edema Edema Peripheral edema Edema documented in this encounter Care Teams Beaming Inspector Relationship Specialty Start Date End Date Fern Aguilar FNP [address] [place] [address] PCP - General Nurse Practitioner Family 05/08/20 documented as of this encounter
--- OUTSIDE RECORDS SUMMARY | 2024-11-26 15:05 | XMS_ITS | Encounter Summary ---
Author Organization [facility] Address [address] [place] [address] Care Team Providers Care Children'S Aide Name Role Phone Fern Aguilar COTTAGE CHEESE MAKER Primary Care Provider [phone] Encounter Details Date Type Department Care Team (Late st Contact Info) Description 11/25/2004 Emergency [facility] EM[facility]Y ROOM WASH Er, Authorized P NO ADDRESS ON FILE [place], Chauncey POISONING-AROM ANALGESICS NEC (Primary Dx) Social History Tobacco Use Types Packs/Day Years Used Date Smoking Tobacco: Never Assessed Comments Unknown Sex and Gender Information Value Date Recorded Sex Assigned at Not on file Legal Sex Female 10:00 PM PERINATAL SOCIAL WORKER Gender Identity Not on file Sexual Orientation Not on file documented as of this encounter Plan of Treatment Upcoming Encounters Date Type Department Care Team (Late st Contact Info) Description 12/25/2024 10:30 AM CDT Office Visit [facility] Urology [address] [place] [address] [address] [place] [address] 02/08/2025 9:30 AM PERINATAL SOCIAL WORKER Office Visit [facility] [address] [place] [address] Leana Pederson PA [address] [place] [address] 02/20/2025 8:30 AM PERINATAL SOCIAL WORKER Office Visit [facility] OBGYN-[address] [place] [address] Triny Pruitt DO [address] [facility] [address] [place] [address] documented as of this encounter [...] back verified. 11/25/2004 10:1 5 PM CDT SIMI CHEMISTRY ORDERABLES Final Resul t Performing Organization Address [facility] Phone Number INTERFACE SYSTEM Refer to [...] mmol/L INTERFACE SYSTEM 11/25/2004 7:35 PM CDT SIMI CHEMISTRY ORDERABLES Final Resul t Performing Organization Address [facility] Phone Number INTERFACE SYSTEM Refer to [...] Slight INTERFACE SYSTEM 11/25/2004 7:35 PM CDT SIMI HEMATOLOGY ORDERABLES Final Resu lt Performing Organization Address [facility] Phone Number INTERFACE SYSTEM Refer to clinic/hospital [...] Final Resu lt Performing Organization Address [facility] Phone Number INTERFACE SYSTEM Refer to clinic/hospital department * (ABNORMAL) ACETAMINOPHEN LEVEL (11/25/2004 7:35 PM CDT) Pathologist [facility] ACETAMINOPHEN LEVEL >300.0(AA ) 10.0 - 20.0 ug/mL INTERFACE SYSTEM Comment:Results called to Dr Maria at 11/25/2004 8:21 PM by [facility] and read back verified. 11/25/2004 7:35 PM CDT Result [facility] us Chauncey Maria CHEMISTRY ORDERABLES Final Resul t Performing Organization Address [facility] Phone Number INTERFACE SYSTEM Refer to clinic/hospital department * PTT (11/25/2004 7:35 PM CDT) PTT 23.5 21.1 - 34.8 Seconds INTERFACE SYSTEM 11/25/2004 7:35 PM CDT us Chauncey Maria HEMATOLOGY ORDERABLES Final Resu lt Performing Organization Address [facility] Phone Number INTERFACE SYSTEM Refer to clinic/hospital [...] patients with mechanical heart valves or post [place]. Pediatric (12 years and under): 1.5 - 3.0 Although the target range in children is not well established , INR values of 1.5 - 3.0 are recommended for most patients. Higher values have been used in children with prosthetic cardiac valves and hereditary clotting disorders. (<3 days) therapeutic ranges have not been established. 11/25/2004 7:35 PM CDT Chauncey [employer] HEMATOLOGY ORDERABLES Final Resu lt Performing Organization Address [facility] Phone Number INTERFACE SYSTEM Refer to clinic/hospital [...] mg/dL INTERFACE SYSTEM 11/25/2004 7:35 PM CDT [employer] CHEMISTRY ORDERABLES Final Resul t Performing Organization Address [facility] Phone Number INTERFACE SYSTEM Refer to clinic/hospital department * ETHANOL LEVEL (11/25/2004 7:35 PM CDT) ETHANOL <10 <=10 mg/dL INTERFACE SYSTEM 11/25/2004 7:35 PM CDT Chauncey Maria CHEMISTRY ORDERABLES Final Resul t Performing Organization Address [facility] Phone Number INTERFACE SYSTEM Refer to clinic/hospital department * HCG QUALITATIVE, URINE (11/25/2004 7:05 PM CDT) SPECIFIC GRAVITY UA 1.010 1.001 - 1.035 INTERFACE SYSTEM HCG QUAL URINE Negative Negative INTER FACE SYSTEM 11/25/2004 7:05 PM CDT Chauncey ramone URINE ORDERABLES Final Result Performing Organization Address [facility] Phone Number INTERFACE SYSTEM Refer to [...] URINE ORDERABLES Final Result Performing Organization Address [facility] Phone Number INTERFACE SYSTEM Refer to clinic/hospital department documented in this encounter Visit Diagnoses Diagnosis Poisoning by aromatic analgesics, not elsewhere classified(965.4)- Primary Poisoning by aromatic analgesics, not elsewhere classified documented in this encounter Care Teams Children'S Aide Relationship Specialty Start Date End Date Fern Aguilar FNP [address] [place] [address] PCP - General Nurse Practitioner Family 05/08/20 documented as of this encounter
--- OUTSIDE RECORDS SUMMARY | 2024-11-26 15:05 | XMS_ITS | Encounter Summary ---
Author Organization [facility] Address [address] [place] [address] Care Team Providers Care Indirect Fire Infantryman Name Role Phone Fern Aguilar BALLAST INSPECTOR Primary Care Provider [phone] Encounter Details Date Type Department Care Team (Late st Contact Info) Description 02/03/2001 Outpatient Historical [facility] Social History Tobacco Use Types Packs/Day Years Used Date Smoking Tobacco: Never Assessed Comments Unknown Sex and Gender Information Value Date Recorded Sex Assigned at Not on file Legal Sex Female 10:00 PM MACHINE ACCOUNTANT Gender Identity Not on file Sexual Orientation Not on file documented as of this encounter Plan of Treatment Upcoming Encounters Date Type Department Care Team (Late st Contact Info) Description 12/25/2024 10:30 AM CDT Office Visit [facility] [place] Urology [address] [place] [address] Kathy Jackson FNP [facility] [address] [place] [address] 02/08/2025 9:30 AM MACHINE ACCOUNTANT Office Visit [facility] [address] [place] [address] Leana Pederson PA [address] [place] [address] 02/20/2025 8:30 AM MACHINE ACCOUNTANT Office Visit [facility] [address] [facility] [address] [place] [address] Triny Pruitt DO [address] [place] [address] [address] [place] [address] documented as of this encounter Visit Diagnoses Not on filedocumented in this encounter Care Teams Indirect Fire Infantryman Relationship Specialty Start Date End Date Fern Aguilar FNP [address] [place] [address] PCP - General Nurse Practitioner Family 05/08/20 documented as of this encounter
--- OUTSIDE RECORDS SUMMARY | 2024-11-26 15:05 | XMS_ITS | Encounter Summary ---
Author Organization [facility] Address [address] [place] [address] Care Team Providers Care Pathology Supervisor Name Role Phone Fern Aguilar RANDY Primary Care Provider [phone] Encounter Details Date Type Department Care Team (Late Contact Info) Description 11/20/2024 External Device Data STL ABSTRACTION Provider, [...] on file Legal Sex Female 10:00 PM MANAGER EXPORT Gender Identity Not on file Sexual Orientation Not on file documented as of this encounter Plan of Treatment Upcoming Encounters Date Type Department Care Team (Late Contact Info) Description 12/25/2024 10:30 AM CDT Office Visit [facility] [place] [facility] Urology [address] [place] [address] Kathy Jackson FNP [address] [place] [address] 02/08/2025 9:30 AM MANAGER EXPORT Office Visit [facility] [place] [address] [place] [address] Leana Pederson PA [address] [place] [address] 02/20/2025 8:30 AM MANAGER EXPORT Office Visit [facility] JNENIFER-Kathe [address] [place] [address] [address] [place] [address] Triny Pruitt DO [address] [facility] [address] [place] [address] documented as of this encounter Visit Diagnoses Not on filedocumented in this encounter Care Teams Pathology Supervisor Relationship Specialty Start Date End Date Fren Aguilar FNP [address] [place] [address] PCP - General Nurse Practitioner Family 05/08/20 documented as of this encounter
--- OUTSIDE RECORDS SUMMARY | 2024-11-26 15:05 | XMS_ITS | Encounter Summary ---
Author Organization [facility] Address [address] [place] [address] Care Team Providers Care Granite Fabricator Name Role Phone Fern Aguilar RANDY Primary Care Provider [phone] Encounter Details Date Type Department Care Team (Late st Contact Info) Description 10/29/2004 Outpatient Historical [facility] Family Medicine Carlotta [place] [address] [place] [address] Kaiser Patel, DO [address] [phone] Social History Tobacco Use Types Packs/Day Years Used Date Smoking Tobacco: Never Assessed Comments Unknown Sex and Gender Information Value Date Recorded Sex Assigned at Not on file Legal Sex Female 10:00 PM RELEASE AND TECHNICAL RECORDS CLERK Gender Identity Not on file Sexual Orientation Not on file documented as of this encounter Plan of Treatment Upcoming Encounters Date Type Department Care Team (Late st Contact Info) Description 12/25/2024 10:30 AM CDT Office Visit [facility] Urology [address] [place] [address] Kathy Jackson FNP [address] [place] [address] 02/08/2025 9:30 AM RELEASE AND TECHNICAL RECORDS CLERK Office Visit [facility] [address] [place] [address] Leana Pederson PA [address] [place] [address] 02/20/2025 8:30 AM RELEASE AND TECHNICAL RECORDS CLERK Office Visit [facility] Kathia [address] [place] [address] [address] [place] [address] Triny Pruitt DO [address] [facility] [address] [place] [address] documented as of this encounter Visit Diagnoses Not on filedocumented in this encounter Care Teams Granite Fabricator Relationship Specialty Start Date End Date Fern Aguilar FNP [address] [place] [address] PCP - General Nurse Practitioner Family 05/08/20 documented as of this encounter
--- OUTSIDE RECORDS SUMMARY | 2024-11-26 15:05 | XMS_ITS | Encounter Summary ---
Author Organization [facility] Address [address] [place] [address] Care Team Providers Care Mammography Technologist Name Role Phone Fern Aguilar PRODUCT TECHNOLOGY SCIENTIST Primary Care Provider [phone] Encounter Details Date Type Department Care Team (Late st Contact Info) Description 08/30/2005 Emergency [facility]Y [facility] Jessica Bojorquez MD [address] [place] [address] [place] [address] Poisoning by Aromatic Analgesics, not Elsewhere Classified (Primary Dx) Social History Tobacco Use Types Packs/Day Years Used Date Smoking Tobacco: Never Assessed Comments Unknown Sex and Gender Information Value Date Recorded Sex Assigned at Not on file Legal Sex Female 10:00 PM IT SECURITY ENGINEER Gender Identity Not on file Sexual Orientation Not on file documented as of this encounter Plan of Treatment Upcoming Encounters Date Type Department Care Team (Late st Contact Info) Description 12/25/2024 10:30 AM CDT Office Visit [facility] Urology [address] [place] [address] Kathy Jackson FNP [address] [place] [address] 02/08/2025 9:30 AM IT SECURITY ENGINEER Office Visit [facility] [address] [place] [address] Leana Pederson PA [address] [place] [address] 02/20/2025 8:30 AM IT SECURITY ENGINEER Office Visit [facility] Kathia [address] [place] [address] Triny Pruitt DO [address] [place] [address] documented as of this encounter Visit Diagnoses Diagnosis Poisoning by aromatic analgesics, not elsewhere classified(965.4)- Primary Poisoning by aromatic analgesics, not elsewhere classified documented in this encounter Care Teams Mammography Technologist Relationship Specialty Start Date End Date Fern Aguilar FNP [address] [place] [address] PCP - General Nurse Practitioner Family 05/08/20 documented as of this encounter
--- OUTSIDE RECORDS SUMMARY | 2024-11-26 15:05 | XMS_ITS | Encounter Summary ---
Author Organization [facility] Address [address] [place] [address] Care Team Providers Care Online Content Developer Name Role Phone Fern Aguilar RANDY Primary Care Provider [phone] Encounter Details Date Type Department Care Team (Late st Contact Info) Description 11/20/2004 Outpatient Historical [facility] Family Medicine Carlotta [place] [address] [place] [address] Kaiser Patel, DO [address] [address] Social History Tobacco Use Types Packs/Day Years Used Date Smoking Tobacco: Never Assessed Comments Unknown Sex and Gender Information Value Date Recorded Sex Assigned at Not on file Legal Sex Female 10:00 PM HAND SPRING REPAIRER HELPER Gender Identity Not on file Sexual Orientation Not on file documented as of this encounter Plan of Treatment Upcoming Encounters Date Type Department Care Team (Late st Contact Info) Description 12/25/2024 10:30 AM CDT Office Visit [facility] Urology [address] [place] [address] Kathy Jackson FNP [address] [place] [address] 02/08/2025 9:30 AM HAND SPRING REPAIRER HELPER Office Visit [facility] [address] [place] [address] Leana Pederson PA [address] [place] [address] 02/20/2025 8:30 AM HAND SPRING REPAIRER HELPER Office Visit [facility] Kathia [address] [place] [address] [address] [place] [address] Triny Pruitt DO [address] [facility] [address] [place] [address] documented as of this encounter Visit Diagnoses Not on filedocumented in this encounter Care Teams Online Content Developer Relationship Specialty Start Date End Date Fern Aguilar FNP [address] [place] [address] PCP - General Nurse Practitioner Family 05/08/20 documented as of this encounter
--- OUTSIDE RECORDS SUMMARY | 2024-11-26 15:05 | XMS_ITS | Encounter Summary ---
Author Organization [facility] Address 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 Gender Identity Not on file Sexual Orientation Not on file documented as of this encounter Plan of Treatment Upcoming Encounters Date Type Department Care Team (Late st Contact Info) Description 12/25/2024 10:30 AM CDT Office Visit [facility] Urology [address] [place] [address] Kathy Jackson FNP [address] [facility] [address] [place] [address] 02/08/2025 9:30 AM INFORMATION SYSTEMS SECURITY DEVELOPER Office Visit [facility] [address] [place] [address] Leana Pederson PA [address] [place] [address] 02/20/2025 8:30 AM INFORMATION SYSTEMS SECURITY DEVELOPER Office Visit [facility] [address] [place] [address] [address] [place] [address] Triny Pruitt DO [address] [place] [address] [address] [place] [address] documented as of this encounter Visit Diagnoses Diagnosis Pain in joint, lower leg- Primary documented in this encounter Care Teams Marketing Operations Analyst Relationship Specialty Start Date End Date Fern Aguilar FNP [address] [place] [address] PCP - General Nurse Practitioner Family 05/08/20 documented as of this encounter
--- OUTSIDE RECORDS SUMMARY | 2024-11-26 15:05 | XMS_ITS | Encounter Summary ---
Author Organization [employer] Address [address] [place] [address] Care Team Providers Care Teacher Ballet Name Role Phone Fern Aguilar RANDY Primary Care Provider Encounter Details Date Type Department Care Team (Latest Contact Info) Description 05/31/2004 Inpatient Historical [facility] PATIENT IN A BED Abby Landis MD [address] [place] [address] BIPOLAR - MOST RECENTLY W DEPRESSION NOS (CMS/HCC) (Primary Dx) Social History Tobacco Use Types Packs/Day Years Used Date Smoking Tobacco: Never Assessed Comments Unknown Sex and Gender Information Value Date Recorded Sex Assigned at Not on file Legal Sex Female 10:00 PM FERMENTATION MANAGER Gender Identity Not on file Sexual Orientation Not on file documented as of this encounter Plan of Treatment Upcoming Encounters Date Type Department Care Team (Late st Contact Info) Description 12/25/2024 10:30 AM CDT Office Visit [facility] Urology [address] [place] [address] Kathy Jackson FNP [address] [facility] [address] [place] [address] 02/08/2025 9:30 AM FERMENTATION MANAGER Office Visit [facility] [place] [address] [place] [address] Leana Peedrson PA [address] [place] [address] 02/20/2025 8:30 AM FERMENTATION MANAGER Office Visit [facility]EMANUELKathe [address] [facility] [address] [place] [address] EdmondTriny DO [address] [facility] [address] [place] [address] documented as of this encounter Procedures Procedure Name Priority Date/Time Associated Diagnosis Comments CBC WITH DIFFERENTIAL Routine 06/04/2004 4:45 AM FERMENTATION MANAGER CBC WITH DIFFERENTIAL Routine 06/04/2004 4:45 AM FERMENTATION MANAGER documented in this encounter Results * (ABNORMAL) CBC WITH DIFFERENTIAL (06/04/2004 4:45 AM FERMENTATION MANAGER) NEUTROPHILS 50 45 - 70 % INTERFAC [...] 0.20 K/uL INTERFACE SYSTEM 06/04/2004 4:45 AM FERMENTATION MANAGER us Kirit Zheng MD HEMATOLOGY ORDERABLES Final Resu lt INTERFACE SYSTEM Refer to clinic/hospital department * (ABNORMAL) CBC WITH DIFFERENTIAL (06/04/2004 4:45 AM FERMENTATION MANAGER) WBC 12.4(H) 4.0 - 9.8 K/uL INTERFACE [...] 12.4 fL INTERFACE SYSTEM 06/04/2004 4:45 AM FERMENTATION MANAGER us Kirit Zheng MD HEMATOLOGY ORDERABLES Final Resu lt INTERFACE SYSTEM Refer to clinic/hospital department documented in this encounter Visit Diagnoses Diagnosis Bipolar I disorder, most recent episode (or current) depressed, unspecified (CMS/[facility])- Primary Bipolar I disorder, most recent episode (or current) depressed, unspecified documented in this encounter Care Teams Teacher Ballet Relationship Specialty Start Date End Date Fern Aguilar FNP [address] [place] [address] PCP - General Nurse Practitioner Family 05/08/20 documented as of this encounter
[2024-11-26 15:34] LABS: Hematocrit 42.9 % (36-47); Hemoglobin 13.40 g/dL (11.27-16.99); Mean Corpuscular HGB Conc 31.2 g/dL (30-55); Mean Corpuscular Hemoglobin 31.5 pg (27-33); Mean Corpuscular Volume 100.7 fl (85-98); Nucleated Red Blood Cells % 0 %; Platelet Count 224 10^3/cmm (157-399); Red Blood Count 4.26 10^6/uL (3.85-5.65); White Blood Count 9.77 10^3/uL (3.29-11.43)
[2024-11-26 15:49] VITALS: BP 120/69; PULSE 93; O2SAT 96
[2024-11-26 15:51] LABS: Lactic Sepsis W/Reflex 0.8 mmol/L (0.5-2.2)
[2024-11-26 15:52] LABS: Troponin(5th) Baseline 8 ng/L (0-10)
[2024-11-26 16:12] LABS: Respiratory Syncytial Virus Ce NEGATIVE (Negative); SARS-CoV-2 PCR NEGATIVE (Negative)
[2024-11-26 16:18] LABS: Alanine Aminotransferase 9 U/L (0-33); Albumin Level 4.1 g/dL (3.5-5.2); Alkaline Phosphatase 197 U/L (35-105); Anion Gap 15.4 (5-19); Aspartate Amino Transferase 12 U/L (0-32); Blood Urea Nitrogen 18 mg/dL (6-20); Calcium 9.3 mg/dL (8.5-10.5); Carbon Dioxide 24 mmol/L (22-29); Chloride 105 mmol/L (98-107); Globulin 2.7 g/dL (1.3-4.6); Glucose 97 mg/dL (65-115); NT Pro B Type Natriuretic Pept 287 pg/mL (0-125); Osmolality Calculated 292 mOsm/kg (285-295); Potassium 4.4 mmol/L (3.5-5.1); Sodium 140 mmol/L (136-145); Total Protein 6.8 g/dL (6.6-8.7)
[2024-11-26 17:00] VITALS: BP 107/56; PULSE 62; O2SAT 93
== END 2024-11-26 17:42 | disposition home or self-care (01) ==
PROVIDERS: Emergency Provider Emergency Medicine; PCP Nurse Practitioner Family
DX: R06.00 Dyspnea, unspecified (principal); F41.9 Anxiety disorder, unspecified; Z79.01 Long term (current) use of anticoagulants; Z11.52 Encounter for screening for COVID-19; F17.290 Nicotine dependence, other tobacco product, uncomplicated; I11.0 Hypertensive heart disease with heart failure; I50.9 Heart failure, unspecified
CPT/HCPCS: 36415; 71045; 80053; 83605; 83880; 84484; 85025; 87040; 87637; 93005; 99285

== ENCOUNTER → 2025-02-05 14:13 | Outpatient (BNVA) | payer MEDICAID, SELFPAY | PROVIDERS: PCP Nurse Practitioner Family; Visit Provider Nurse Practitioner Family | DX: L23.9 Allergic contact dermatitis, unspecified cause (principal); L24.9 Irritant contact dermatitis, unspecified cause; D48.5 Neoplasm of uncertain behavior of skin | CPT/HCPCS: 99214 ==

== ENCOUNTER → 2025-02-08 10:06 | Outpatient (BNVA) | payer MEDICAID, SELFPAY | PROVIDERS: PCP Nurse Practitioner Family; Visit Provider Internal Medicine Cardiovascular Disease | DX: I11.0 Hypertensive heart disease with heart failure (principal); I50.32 Chronic diastolic (congestive) heart failure; R06.09 Other forms of dyspnea; R09.89 Other specified symptoms and signs involving the circulatory and respiratory systems; G47.33 Obstructive sleep apnea (adult) (pediatric); Z79.01 Long term (current) use of anticoagulants; F17.200 Nicotine dependence, unspecified, uncomplicated; R06.02 Shortness of breath | CPT/HCPCS: 36415; 80048; 83880; 99214 ==

== ENCOUNTER → 2025-02-22 11:21 | Outpatient (BNVA) | payer MEDICAID, SELFPAY | PROVIDERS: PCP Nurse Practitioner Family; Visit Provider Nurse Practitioner Family | DX: L23.9 Allergic contact dermatitis, unspecified cause (principal); L24.9 Irritant contact dermatitis, unspecified cause; D48.5 Neoplasm of uncertain behavior of skin | CPT/HCPCS: 11102; 99214 ==